=== PATIENT | male | born 1945 | race American Indian/Alaskan Native ===

== ENCOUNTER 2017-12-20 22:56 | Emergency (ER) | payer MEDICARE, BC ==
[2017-12-20 22:56] VITALS: BMI 21.1
--- NOTE | 2017-12-21 00:48 | C.PDOC ---
History Of Present Illness 72 y/o male, with history of chronic renal failure, peripheral arterial disease and left below-knee amputation, presents to the ED for evaluation of abdominal pain which began 3 days ago. Patient notes he had similar pain 3 weeks ago, was evaluated in [facility] [place] and was diagnosed with diverticulitis. Patient states he took cephalosporin and Flagyl for 7 days and then felt better. Patient notes symptoms reoccurred 3 days ago. He notes the pain is mostly around his left lower quadrant. Patient reports decreased appetite today. He denies fever, chills, vomiting, diarrhea. Patient notes he is on chronic hemodialysis. Chief Complaint (Nursing): Abdominal Pain History Per: Patient History/Exam Limitations: no limitations Onset/Duration Of Symptoms: Days (3) Current Symptoms Are (Timing): Still Present Location Of Pain/Discomfort: LLQ Quality Of Discomfort: "Pain" Associated Symptoms: denies: Fever, Chills, Nausea, Vomiting, Diarrhea Additional History Per: Patient Past Medical History Reviewed: Historical Data, Nursing Documentation, Vital Signs Vital Signs: Last Vital Signs Temp 98.1 F 12/21/17 03:36 Pulse 72 12/21/17 03:36 Resp 17 12/21/17 03:36 BP 144/73 12/21/17 03:36 Pulse Ox 98 12/21/17 03:36 - Medical History PMH: HTN, Hypercholesterolemia, End Stage Renal Disease, Chronic Kidney Disease Surgical History: Pacemaker (12/17) - [facility] Procedures BYPASS LEFT POPLITEAL ARTERY TO FOOT ARTERY, OPEN APPROACH (12/27/15) DETACHMENT AT LEFT 2ND TOE, MID, OPEN APPROACH (12/27/15) DETACHMENT AT LEFT 5TH TOE, COMPLETE, OPEN APPROACH (12/27/15) DETACHMENT AT LEFT LOWER LEG, HIGH, OPEN APPROACH (12/13/16) DIALYSIS ARTERIOVENOSTOM (04/08/14) EXCISION OF LEFT FOOT SKIN, EXTERNAL APPROACH (12/27/15) EXCISION OF LEFT GREATER SAPHENOUS VEIN, OPEN APPROACH (12/27/15) FLUOROSCOPY OF LEFT HEART USING LOW OSMOLAR CONTRAST (12/27/15) FLUOROSCOPY OF MULT COR ART USING L OSM CONTRAST (12/27/15) HEMODIALYSIS (04/08/14) INSERTION OF ENDOTRACHEAL AIRWAY INTO TRACHEA, VIA OPENING (12/13/16) INSERTION OF INFUSION DEV INTO SUP VENA CAVA, PERC APPROACH (12/27/15) INSERTION OF INFUSION DEVICE INTO R ATRIUM, PERC APPROACH (08/20/15) MEASURE OF CARDIAC SAMPL & PRESSURE, L HEART, PERC APPROACH (12/27/15) PERFORMANCE OF CARDIAC OUTPUT, SINGLE, MANUAL (12/13/16) PERFORMANCE OF URINARY FILTRATION, MULTIPLE (12/13/16) PLAIN RADIOGRAPHY OF AORTA, BI LE ART USING L OSM CONTRAST (12/27/15) RESPIRATORY VENTILATION, LESS THAN 24 CONSECUTIVE HOURS (12/13/16) TRANSFUSE NONAUT RED BLOOD CELLS IN PERIPH VEIN, PERC (12/27/15) ULTRASONOGRAPHY OF SUPERIOR VENA CAVA, GUIDANCE (12/27/15) VENOUS CATHETERIZATION FOR RENAL DIALYSIS (04/08/14) Family History: States: Unknown Family Hx - Social History Hx Tobacco Use: Yes Hx Alcohol Use: No (former) Hx Substance Use: No - Immunization History Hx Tetanus Toxoid Vaccination: No Hx Influenza Vaccination: Yes Hx Pneumococcal Vaccination: Yes Review Of Systems Constitutional: Negative for: Fever, Chills Gastrointestinal: Positive for: Abdominal Pain (LLQ). Negative for: Nausea, Vomiting Physical Exam - Physical Exam Appears: Non-toxic, No Acute Distress Skin: Normal Color, Warm, Dry Head: Atraumatic, Normacephalic Eye(s): bilateral: Normal Inspection Oral Mucosa: Moist Neck: Supple Chest: Symmetrical, No Deformity, No Tenderness Cardiovascular: Rhythm Regular, No Murmur Respiratory: Normal Breath Sounds, No Rales, No Rhonchi, No Wheezing Gastrointestinal/Abdominal: Bowel Sounds (active ), Soft, Tenderness (localized , LLQ ), No Mass, Guarding (voluntary ), No Rebound Extremity: Normal ROM, Capillary Refill (less than 2 seconds ), Other (bellow- knee amputation to left lower extremity ) Neurological/Psych: Oriented x3, Normal Speech, Normal Cognition ED Course And Treatment - Laboratory Results Result Diagrams: 12/21/17 01:46 12/21/17 01:46 O2 Sat by Pulse Oximetry: 99 (on RA) Pulse Ox Interpretation: Normal Medical Decision Making Medical Decision Making: Impression: recurrence of diverticular disease Plan: will re-scan and check routine labs Progress: Bloodwork, CT A/P ordered and reviewed. Morphnie IVP and Zofran IVP administered. Disposition - Disposition Referrals: [facility] [Outside] Disposition: HOME/ ROUTINE Disposition Time: 06:24 Condition: GOOD Prescriptions: Amoxicillin/Clavulanate [Augmentin 875 MG-125 MG] 1 tab PO BID #20 tab oxyCODONE/Acetaminophen [Percocet 5/325 mg Tab] 1 tab PO QID PRN #12 tab PRN Reason: Pain, Mild (1-3) oxyCODONE/Acetaminophen [Percocet 5/325 mg Tab] 1 tab PO QID PRN #12 tab PRN Reason: Pain, Mild (1-3) Instructions: Diverticulitis, Amoxicillin and Clavulanate, Oxycodone and Acetaminophen Forms: [employer] (Serbian) Print Language: SLOVAK - Clinical Impression Clinical Impression: Diverticulitis large intestine - Scribe Statement The provider has reviewed the documentation as recorded by the Scribe (Danae Leary) Provider Attestation: All medical record entries made by the Scribe were at my direction and personally dictated by me. I have reviewed the chart and agree that the record accurately reflects my personal performance of the history, physical exam, medical decision making, and the department course for this patient. I have also personally directed, reviewed, and agree with the discharge instructions and disposition.
[2017-12-21] MEDS ORDERED: Morphine 4 MG/ML VIAL ONE (01:05)
[2017-12-21 01:52] LABS: BASO % 0.5 % (0.0-2.0); EOS # 0.1 K/uL (0.0-0.7); EOS % 1.7 % (0.0-4.0); HEMOGLOBIN 10.4 g/dL (12.0-18.0); LYMPH # 0.8 K/uL (1.0-4.3); LYMPH % 10.9 % (20.0-40.0); MEAN CELL VOLUME 96.8 fL (80.0-94.0); MEAN CORPUSCULAR HEMOGLOBIN 32.2 pg (27.0-31.0); MEAN CORPUSCULAR HGB CONC 33.3 g/dL (33.0-37.0); MEAN PLATELET VOLUME 9.2 fL (7.2-11.7); MONO # 0.8 K/uL (0.0-0.8); MONO % 10.9 % (0.0-10.0); NEUT # 5.8 K/uL (1.8-7.0); NRBC % 0.1 % (0.0-2.0); RBC 3.22 Mil/uL (4.40-5.90); RED CELL DISTRIBUTION WIDTH 15.8 % (11.5-14.5); WHITE BLOOD COUNT 7.6 K/uL (4.8-10.8)
[2017-12-21 02:13] LABS: ALB/GLOB RATIO 0.9 (1.0-2.1); ALBUMIN 4.1 g/dL (3.5-5.0); CALCIUM 8.5 mg/dl (8.6-10.4)
[2017-12-21 03:37] VITALS: BP 144/73; PULSE 72; RESP 17; TEMP 98.1
[2017-12-21 06:25] VITALS: O2SAT 99
--- NOTE | 2017-12-21 08:08 | CT ---
PROCEDURE: CT Abdomen and Pelvis without intravenous contrast HISTORY: Abdominal pain COMPARISON: None. TECHNIQUE: Multiple contiguous axial images were performed through the abdomen and pelvis without the use of intravenous contrast. Subsequently, sagittal and coronal reformatted images were obtained. Radiation dose: Total exam DLP = 579 mGy-cm. This CT exam was performed using one or more of the following dose reduction techniques: Automated exposure control, adjustment of the mA and/or kV according to patient size, and/or use of iterative reconstruction technique. FINDINGS: LOWER THORAX: Linear atelectasis and or fibrosis at the lung bases. Pacemaker. LIVER: Small subcapsular cyst in the left hepatic lobe. This is best seen on series 3, image 50 measuring 1.2 centimeters demonstrating a Hounsfield unit attenuation of 15. GALLBLADDER AND BILE DUCTS: Unremarkable. PANCREAS: Unremarkable. No gross lesion or ductal dilatation. SPLEEN: Unremarkable. ADRENALS: Unremarkable. No mass. KIDNEYS AND URETERS: Bilateral renal cysts. For example, a partially exophytic low-attenuation lesion measures 1.0 centimeters off the midpole of the right kidney demonstrating a Hounsfield unit attenuation of 3. For example, an additional hypodensity is seen at the upper pole of the left kidney measuring 1 centimeter demonstrating a Hounsfield unit attenuation of 16. These may be better evaluated with renal ultrasound. Few scattered punctate calcifications and or calculi throughout both kidneys, nonobstructive. VASCULATURE: Prominent calcification and plaque within the aorta. BOWEL: Scattered diverticuli in the colon. Thickening and inflammation around diverticuli in the lower descending colon concerning for early acute diverticulitis. APPENDIX: Unremarkable. Normal appendix. PERITONEUM: Unremarkable. No free fluid. No free air. LYMPH NODES: Unremarkable. No enlarged lymph nodes. BLADDER: Two punctate 3-4 millimeter radiopaque foci at the posterior aspect of the urinary bladder may represent bladder calcifications and or bladder calculi. Clinical correlation. Correlation with bladder ultrasound may be helpful if clinically indicated. REPRODUCTIVE: Heterogeneous and prominent prostate with calcifications. Multiple calcified phleboliths in the pelvis. BONES: Degenerative changes in the spine and hips. Diffuse osteopenia. OTHER FINDINGS: Left inguinal hernia containing fat. IMPRESSION: Scattered diverticuli in the colon. Some thickening and inflammation around diverticuli in the lower descending colon concerning for early acute diverticulitis. Clinical correlation. Additional findings as above. These findings were preliminarily reported at 3:10 a.m. on 12/21/[address] Rolan Porras from [facility].
== END 2017-12-21 05:01 | disposition home or self-care (01) ==
LOC: SUPCPDRO 22:56 → C.ER 22:56
DX: K57.32 Diverticulitis of large intestine without perforation or abscess without bleeding (principal); I12.9 Hypertensive chronic kidney disease with stage 1 through stage 4 chronic kidney disease, or unspecified chronic kidney disease; N18.9 Chronic kidney disease, unspecified; E78.00 Pure hypercholesterolemia, unspecified; F17.210 Nicotine dependence, cigarettes, uncomplicated
CPT/HCPCS: 74176; 80053; 83690; 85025; 96374; 96375; 99284; J2270; J2405

== ENCOUNTER 2017-12-22 01:30 | Inpatient (IN) | payer MEDICARE, BC ==
[2017-12-22 01:30] VITALS: BMI 21.1
--- NOTE | 2017-12-22 02:18 | C.PDOC ---
History Of Present Illness 72 year old male presents to the ED for evaluation of diffuse abdominal pain. Patient was seen here yesterday with the same complaint. He has a history of diverticulosis and possible history of diverticulitis. He has been on antibiotics but states that pain has worsened. He is on , , Tuesday dialysis schedule. Time Seen by Provider: 12/22/17 02:18 Chief Complaint (Nursing): Abdominal Pain History Per: Patient History/Exam Limitations: no limitations Onset/Duration Of Symptoms: Days Current Symptoms Are (Timing): Still Present Severity: Moderate Pain Scale Rating Of: 4 Location Of Pain/Discomfort: Diffuse Quality Of Discomfort: "Pain" Associated Symptoms: denies: Fever, Chills Recent travel outside of the [place]: No Past Medical History Reviewed: Historical Data, Nursing Documentation, Vital Signs Vital Signs: Last Vital Signs Temp 97.8 F 12/22/17 02:13 Pulse 64 12/22/17 02:13 Resp 18 12/22/17 02:13 BP 174/72 H 12/22/17 02:13 Pulse Ox 99 12/22/17 02:42 - Medical History PMH: HTN, Hypercholesterolemia, End Stage Renal Disease, Chronic Kidney Disease Surgical History: Pacemaker (12/17) - [facility] Procedures BYPASS LEFT POPLITEAL ARTERY TO FOOT ARTERY, OPEN APPROACH (12/27/15) DETACHMENT AT LEFT 2ND TOE, MID, OPEN APPROACH (12/27/15) DETACHMENT AT LEFT 5TH TOE, COMPLETE, OPEN APPROACH (12/27/15) DETACHMENT AT LEFT LOWER LEG, HIGH, OPEN APPROACH (12/13/16) DIALYSIS ARTERIOVENOSTOM (04/08/14) EXCISION OF LEFT FOOT SKIN, EXTERNAL APPROACH (12/27/15) EXCISION OF LEFT GREATER SAPHENOUS VEIN, OPEN APPROACH (12/27/15) FLUOROSCOPY OF LEFT HEART USING LOW OSMOLAR CONTRAST (12/27/15) FLUOROSCOPY OF MULT COR ART USING L OSM CONTRAST (12/27/15) HEMODIALYSIS (04/08/14) INSERTION OF ENDOTRACHEAL AIRWAY INTO TRACHEA, VIA OPENING (12/13/16) INSERTION OF INFUSION DEV INTO SUP VENA CAVA, PERC APPROACH (12/27/15) INSERTION OF INFUSION DEVICE INTO R ATRIUM, PERC APPROACH (08/20/15) MEASURE OF CARDIAC SAMPL & PRESSURE, L HEART, PERC APPROACH (12/27/15) PERFORMANCE OF CARDIAC OUTPUT, SINGLE, MANUAL (12/13/16) PERFORMANCE OF URINARY FILTRATION, MULTIPLE (12/13/16) PLAIN RADIOGRAPHY OF AORTA, BI LE ART USING L OSM CONTRAST (12/27/15) RESPIRATORY VENTILATION, LESS THAN 24 CONSECUTIVE HOURS (12/13/16) TRANSFUSE NONAUT RED BLOOD CELLS IN PERIPH VEIN, PERC (12/27/15) ULTRASONOGRAPHY OF SUPERIOR VENA CAVA, GUIDANCE (12/27/15) VENOUS CATHETERIZATION FOR RENAL DIALYSIS (04/08/14) Family History: States: Unknown Family Hx - Social History Hx Tobacco Use: Yes Hx Alcohol Use: No (former) Hx Substance Use: No - Immunization History Hx Tetanus Toxoid Vaccination: No Hx Influenza Vaccination: Yes Hx Pneumococcal Vaccination: Yes Review Of Systems Constitutional: Negative for: Fever, Chills ENT: Negative for: Ear Pain, Throat Pain Cardiovascular: Negative for: Chest Pain Respiratory: Negative for: Cough, Shortness of Breath Gastrointestinal: Positive for: Abdominal Pain. Negative for: Nausea, Vomiting , Diarrhea Genitourinary: Negative for: Dysuria Skin: Negative for: Rash Neurological: Negative for: Headache Physical Exam - Physical Exam Appears: Non-toxic, No Acute Distress Skin: Warm, Dry Head: Normacephalic Eye(s): bilateral: Normal Inspection Oral Mucosa: Moist Neck: Trachea Midline, Supple Chest: Symmetrical Cardiovascular: Rhythm Regular (Rate Regular ) Respiratory: No Rales, No Rhonchi, No Wheezing Gastrointestinal/Abdominal: Soft, Tenderness (diffuse tenderness, worst in left lower quadrant ), Distention, No Guarding, No Rebound Back: Normal Inspection Extremity: Other (Left upper extremity with dialysis shunt, good thrill and bruit; Left BKA) Extremity: Bilateral: Atraumatic Neurological/Psych: Oriented x3 Gait: Steady ED Course And Treatment - Laboratory Results Result Diagrams: 12/22/17 03:18 12/22/17 03:18 ECG: Interpreted By Me, Viewed By Me ECG Rhythm: Sinus Rhythm (61), 1st Degree HB, Nonspecific Changes O2 Sat by Pulse Oximetry: 99 Pulse Ox Interpretation: Normal Disposition Discussed With : Emilio Israel Comment: accepted the pt on his service and took over the care at 5:39 AM Doctor Will See Patient In The: Hospital Counseled Patient/Family Regarding: Studies Performed, Diagnosis - Disposition Disposition: HOSPITALIZED Disposition Time: 05:39 Condition: FAIR Forms: [employer] (Tanzanian) - POA Present On Arrival: Poor Glycemic Control - Clinical Impression Clinical Impression: Abdominal pain, End stage renal disease, Diverticulitis, ESRD needing dialysis - Scribe Statement The provider has reviewed the documentation as recorded by the Hectoribvictoriano Ibanez Provider Attestation: All medical record entries made by the Scribe were at my direction and personally dictated by me. I have reviewed the chart and agree that the record accurately reflects my personal performance of the history, physical exam, medical decision making, and the department course for this patient. I have also personally directed, reviewed, and agree with the discharge instructions and disposition. Decision To Admit - Pt Status Changed To: Hospital Disposition Of: Inpatient - Admit Certification Admit to Inpatient:: After my assessment, the patient will require hospitalization for at least two midnights. This is because of the severity of symptoms shown, intensity of services needed, and/or the medical risk in this patient being treated as an outpatient. - InPatient: Physician Admission Certification:: After my assessment, the patient will require hospitalization for at least two midnights. This is because of the severity of symptoms shown, intensity of services needed, and/or the medical risk in this patient being treated as an outpatient. - . Bed Request Type: Regular Admitting Physician: Emilio Israel Patient Diagnosis: Abdominal pain, End stage renal disease, Diverticulitis, ESRD needing dialysis
[2017-12-22 03:22] LABS: BASO # 0.1 K/uL (0.0-0.2); BASO % 0.6 % (0.0-2.0); EOS # 0.1 K/uL (0.0-0.7); EOS % 1.1 % (0.0-4.0); HEMOGLOBIN 10.9 g/dL (12.0-18.0); LYMPH # 0.9 K/uL (1.0-4.3); LYMPH % 10.5 % (20.0-40.0); MEAN CELL VOLUME 96.3 fL (80.0-94.0); MEAN CORPUSCULAR HEMOGLOBIN 32.2 pg (27.0-31.0); MEAN CORPUSCULAR HGB CONC 33.4 g/dL (33.0-37.0); MONO # 0.9 K/uL (0.0-0.8); MONO % 9.7 % (0.0-10.0); NEUT # 6.9 K/uL (1.8-7.0); NEUT % 78.1 % (50.0-75.0); RBC 3.39 Mil/uL (4.40-5.90); RED CELL DISTRIBUTION WIDTH 15.5 % (11.5-14.5); WHITE BLOOD COUNT 8.9 K/uL (4.8-10.8)
[2017-12-22 03:30] LABS: PROTHROMBIN TIME 11.3 SECONDS (9.7-12.2)
[2017-12-22 05:33] LABS: ALB/GLOB RATIO 0.9 (1.0-2.1); CALCIUM 8.6 mg/dl (8.6-10.4)
[2017-12-22] MEDS ORDERED: Oxycodone/Acetaminophen 5/325 mg Tab PO PRN (05:53)
[2017-12-22] MEDS ORDERED: Oxycodone/Acetaminophen 5/325 mg Tab ONE (06:22)
[2017-12-22] MEDS ORDERED: (Novolog) Insulin Aspart, Recombinant 100 u/ml 10 ml vial ONE (08:27)
[2017-12-22] MEDS: (Novolog) Insulin Aspart, Recombinant 100 u/ml 10 ml vial SC SCH ×4 (08:34→22:13)
[2017-12-22] MEDS ORDERED: SOTALOL PO SCH (10:00)
[2017-12-22] MEDS ORDERED: Epoetin Alfa 10,000 unit/ml Dialysis IV SCH (10:00)
[2017-12-22] MEDS: Sevelamer Carb 2.4 gm/Packet PO SCH ×3 (11:38→18:18)
[2017-12-22] MEDS: Multivitamin Vitamin B Complex (Nephro-Vite) Tab PO SCH (11:38)
--- NOTE | 2017-12-22 14:12 | CP.PCM.CON ---
History of Present Illness - History of Present Illness History of Present Illness: pt is seen and examined, full consult is dictated #[id number] for hd today, uf 2.5 lit Past Patient History - Infectious Disease Hx of Infectious Diseases: None - Past Medical History & Family History Past Medical History?: Yes - Past Social History Smoking Status: Light Smoker < 10 Cigarettes Daily - CARDIAC Hx Cardiac Disorders: Yes Hx Hypercholesterolemia: Yes Hx Hypertension: Yes Hx Pacemaker: Yes (12/17) - PULMONARY Other/Comment: light smoker - NEUROLOGICAL Hx Neurological Disorder: No - HEENT Hx HEENT Problems: Yes Other/Comment: left eye vision problems - RENAL Hx Chronic Kidney Disease: Yes Hx Dialysis: Yes Date of Last Dialysis Treatment: 12/20/17 - ENDOCRINE/METABOLIC Hx Endocrine Disorders: Yes Hx Diabetes Mellitus Type 2: Yes - HEMATOLOGICAL/ONCOLOGICAL Hx Blood Disorders: No - INTEGUMENTARY Hx Dermatological Problems: No - MUSCULOSKELETAL/RHEUMATOLOGICAL Hx Musculoskeletal Disorders: Yes Hx Falls: Yes Other/Comment: left leg prosthesis - GASTROINTESTINAL Hx Gastrointestinal Disorders: Yes Hx Nausea: Yes - GENITOURINARY/GYNECOLOGICAL Hx Genitourinary Disorders: No - PSYCHIATRIC Hx Substance Use: No - SURGICAL HISTORY Hx Surgeries: Yes Hx Amputation: Yes (left bka with prosthesis) Hx Angiogram: Yes Hx Herniorrhaphy: Yes Hx Vascular Access Device: Yes - ANESTHESIA Hx Anesthesia: Yes Hx Anesthesia Reactions: No Hx Malignant Hyperthermia: No Has any member of the family had a problem w/ anesthesia?: No Meds Allergies/Adverse Reactions: Allergies Allergy/AdvReac Type Severity Reaction Status Date / Time No Known Allergies Allergy Verified 12/22/17 02:18 - Medications Medications: Current Medications Acetaminophen (Tylenol 325mg Tab) 650 mg PO Q6 PRN PRN Reason: Pain, moderate (4-7) Aspirin (Aspirin Chewable) 81 mg PO DAILY [facility] Last Admin: 12/22/17 11:37 Dose: 81 mg Epoetin Omi (Procrit) 10,000 unit IV TTS MATTHEW Stop: 01/03/18 10:01 Finasteride (Proscar) 5 mg PO HS MATTHEW Heparin Sodium (Porcine) (Heparin) 5,000 units SC Q8 MATTHEW Last Admin: 12/22/17 06:15 Dose: 5,000 units Hydralazine HCl (Apresoline) 50 mg PO Q8 [facility] Last Admin: 12/22/17 06:15 Dose: 50 mg Metronidazole (Flagyl) 500 mg in 100 mls @ 100 mls/hr IVPB Q8 [facility] Insulin Aspart (Novolog) 0 unit SC ACHS MATTHEW PRN Reason: Protocol Last Admin: 12/22/17 08:34 Dose: 2 unit Metoclopramide HCl (Reglan) 5 mg IVP Q6H [facility] Last Admin: 12/22/17 09:55 Dose: 5 mg Oxycodone/Acetaminophen (Percocet 5/325 Mg Tab) 1 tab PO QID PRN PRN Reason: Pain, Mild (1-3) Stop: 12/25/17 05:54 Last Admin: 12/22/17 06:33 Dose: 1 tab Pantoprazole Sodium (Protonix Inj) 40 mg IVP DAILY [facility] Last Admin: 12/22/17 11:38 Dose: 40 mg Paricalcitol (Zemplar) 2 mcg IV TTS [facility] Rosuvastatin Calcium (Crestor) 5 mg PO HS [facility] Sevelamer Carbonate (Renvela) 2.4 gm PO TIDCC [facility] Last Admin: 12/22/17 11:38 Dose: 2.4 gm Sotalol HCl (Betapace) 160 mg PO BID [facility] Vitamin B Complex/Vit C/Folic Acid (Nephro-Benoit) 1 tab PO DAILY [facility] Last Admin: 12/22/17 11:38 Dose: 1 tab Results - Vital Signs Recent Vital Signs: Last Vital Signs Temp 97.8 F 12/22/17 08:32 Pulse 58 L 12/22/17 08:32 Resp 20 12/22/17 08:32 BP 167/65 H 12/22/17 08:32 Pulse Ox 98 12/22/17 08:32 - Labs Result Diagrams: 12/22/17 03:18 12/22/17 19:36 Labs: Laboratory Results - last 24 hr 12/22/17 12/22/17 12/22/17 03:18 03:18 03:18 WBC 8.9 RBC 3.39 L Hgb 10.9 L Hct 32.6 L MCV 96.3 H MCH 32.2 H MCHC 33.4 RDW 15.5 H Plt Count 190 MPV 9.0 Neut % (Auto) 78.1 H Lymph % (Auto) 10.5 L [place] % (Auto) 9.7 Eos % (Auto) 1.1 Baso % (Auto) 0.6 Neut # (Auto) 6.9 Lymph # (Auto) 0.9 L [place] # (Auto) 0.9 H Eos # (Auto) 0.1 Baso # (Auto) 0.1 PT 11.3 INR 1.0 APTT 44 H Sodium 135 Potassium 5.6 H Chloride 95 L Carbon Dioxide 24 Anion Gap 22 H BUN 55 H Creatinine 9.6 H* D Est GFR ( Amer) 7 Est GFR (Non-Af Amer) 5 POC Glucose (mg/dL) Random Glucose 164 H Calcium 8.6 Total Bilirubin 0.6 AST 20 ALT 13 L Alkaline Phosphatase 107 Total Protein 8.6 H Albumin 4.0 Globulin 4.6 H Albumin/Globulin Ratio 0.9 L Amylase Lipase 94 Carcinoembryonic Ag 6.9 H CA 19-9 Antigen 53.8 H 12/22/17 12/22/17 12/22/17 06:48 08:11 11:54 WBC RBC Hgb Hct MCV MCH MCHC RDW Plt Count MPV Neut % (Auto) Lymph % (Auto) [place] % (Auto) Eos % (Auto) Baso % (Auto) Neut # (Auto) Lymph # (Auto) [place] # (Auto) Eos # (Auto) Baso # (Auto) PT INR APTT Sodium Potassium Chloride Carbon Dioxide Anion Gap BUN Creatinine Est GFR ( Amer) Est GFR (Non-Af Amer) POC Glucose (mg/dL) 206 H 74 Random Glucose Calcium Total Bilirubin AST ALT Alkaline Phosphatase Total Protein Albumin Globulin Albumin/Globulin Ratio Amylase 97 Lipase Carcinoembryonic Ag CA 19-9 Antigen
[2017-12-22] MEDS: metroNIDAZOLE IV 500 mg/100 ml 500 MG/100 ML BAG IVPB SCH ×2 (14:30→22:20)
[2017-12-22] MEDS: Paricalcitol 2 mcg/ml Inj IV SCH (16:27)
[2017-12-22] MEDS: Epoetin Alfa 10,000 unit/ml Dialysis IV SCH (16:28)
[2017-12-22] MEDS ORDERED: Magnesium Citrate Oral SOL (300 ml) PO ONE (17:38)
--- NOTE | 2017-12-22 20:00 | CP.PCM.HP ---
History of Present Illness - History of Present Illness History of Present Illness: CC: Left lower quadrant abdominal pain HPI: 72 year old AA male with h/o type 2 DM, CKD on HD presents to the ED for evaluation of diffuse abdominal pain along with nausea no vomitting. He has a history of diverticulosis and possible history of diverticulitis. He has been on antibiotics but states that pain has worsened. He is on , , Tuesday dialysis schedule. Present on Admission - Present on Admission Any Indicators Present on Admission: Yes Review of Systems - Review of Systems Systems not reviewed;Unavailable: Acuity of Condition - Constitutional Constitutional: Fatigue, Lethargy - EENT Eyes: absent: As Per HPI, Blind Spots, Blurred Vision, Change in Vision, Decreased Night Vision, Diplopia, Discharge, Dry Eye, Exophthalmos, Floaters, Irritation, Itchy Eyes, Loss of Peripheral Vision, Pain, Photophobia, Requires Corrective Lenses, Sees Flashes, Spots in Vision, Tunnel Vision, Other Visual Disturbances, Loss of Vision, Other Nose/Mouth/Throat: absent: As Per HPI, Epistaxis, Nasal Congestion, Nasal Discharge, Nasal Obstruction, Nasal Trauma, Nose Pain, Post Nasal Drip, Sinus Pain, Sinus Pressure, Bleeding Gums, Change in Voice, Dental Pain, Dry Mouth, Dysphagia, Halitosis, Hoarsness, Lip Swelling, Mouth Lesions, Mouth Pain, Odynophagia, Sore Throat, Throat Swelling, Tongue Swelling, Facial Pain, Neck Pain, Neck Mass, Other - Cardiovascular Cardiovascular: absent: As Per HPI, Acrocyanosis, Chest Pain, Chest Pain at Rest , Chest Pain with Activity, Claudication, Diaphoresis, Dyspnea, Dyspnea on Exertion, Edema, Irregular Heart Rhythm, Pain Radiating to Arm/Neck/Jaw, Leg Edema, Leg Ulcers, Lightheadedness, Orthopnea, Palpitations, Paroxysmal Nocturnal Dyspnea, Pedal Edema, Radiating Pain, Rapid Heart Rate, Slow Heart Rate, Syncope, Other - Gastrointestinal Gastrointestinal: Abdominal Pain, Nausea. absent: As Per HPI, Belching, Bloating, Change in Bowel Habits, Change in Stool Character, Coffee Ground Emesis, Constipation, Cramping, Diarrhea, Dyspepsia, Dysphagia, Early Satiety, Excessive Flatus, Fecal Incontinence, Heartburn, Hematemesis, Hematochezia, Loose Stools, Melena, Odynophagia, Temesmus, Vomiting, Other - Genitourinary Genitourinary: absent: As Per HPI, Change in Urinary Stream, Difficulty Urinating, Dysuria, Flank Pain, Hematuria, Pyuria, Nocturia, Urinary Incontinence, Urinary Frequency, Urinary Hesitance, Urinary Urgency, Voiding Freq/Small Amts, Freq UTI, Hx Renal/Bladder Calculi, Hx /Renal Surgery, Bladder Distension, Other Past Patient History - Infectious Disease Hx of Infectious Diseases: None - Past Medical History & Family History Past Medical History?: Yes - Past Social History Smoking Status: Light Smoker < 10 Cigarettes Daily - CARDIAC Hx Cardiac Disorders: Yes Hx Hypercholesterolemia: Yes Hx Hypertension: Yes Hx Pacemaker: Yes (12/17) - PULMONARY Other/Comment: light smoker - NEUROLOGICAL Hx Neurological Disorder: No - HEENT Hx HEENT Problems: Yes Other/Comment: left eye vision problems - RENAL Hx Chronic Kidney Disease: Yes Hx Dialysis: Yes Date of Last Dialysis Treatment: 12/20/17 - ENDOCRINE/METABOLIC Hx Endocrine Disorders: Yes Hx Diabetes Mellitus Type 2: Yes - HEMATOLOGICAL/ONCOLOGICAL Hx Blood Disorders: No - INTEGUMENTARY Hx Dermatological Problems: No - MUSCULOSKELETAL/RHEUMATOLOGICAL Hx Musculoskeletal Disorders: Yes Hx Falls: Yes Other/Comment: left leg prosthesis - GASTROINTESTINAL Hx Gastrointestinal Disorders: Yes Hx Nausea: Yes - GENITOURINARY/GYNECOLOGICAL Hx Genitourinary Disorders: No - PSYCHIATRIC Hx Substance Use: No - SURGICAL HISTORY Hx Surgeries: Yes Hx Amputation: Yes (left bka with prosthesis) Hx Angiogram: Yes Hx Herniorrhaphy: Yes Hx Vascular Access Device: Yes - ANESTHESIA Hx Anesthesia: Yes Hx Anesthesia Reactions: No Hx Malignant Hyperthermia: No Has any member of the family had a problem w/ anesthesia?: No Meds Allergies/Adverse Reactions: Allergies Allergy/AdvReac Type Severity Reaction Status Date / Time No Known Allergies Allergy Verified 12/22/17 02:18 Physical Exam - Constitutional Appears: No Acute Distress - Head Exam Head Exam: ATRAUMATIC, NORMAL INSPECTION, NORMOCEPHALIC - Eye Exam Eye Exam: EOMI, Normal appearance, PERRL Pupil Exam: NORMAL ACCOMODATION, PERRL - Respiratory Exam Respiratory Exam: Clear to Auscultation Bilateral, NORMAL BREATHING PATTERN - Cardiovascular Exam Cardiovascular Exam: REGULAR RHYTHM - GI/Abdominal Exam GI & Abdominal Exam: Tenderness - Rectal Exam Rectal Exam: Deferred Results - Vital Signs Recent Vital Signs: Last Vital Signs Temp 97.4 F L 12/22/17 16:25 Pulse 64 12/22/17 17:30 Resp 16 12/22/17 17:30 BP 163/80 H 12/22/17 17:30 Pulse Ox 97 12/22/17 16:25 - Labs Result Diagrams: 12/22/17 03:18 12/22/17 19:36 Labs: Laboratory Results - last 24 hr 12/22/17 12/22/17 12/22/17 03:18 03:18 03:18 WBC 8.9 RBC 3.39 L Hgb 10.9 L Hct 32.6 L MCV 96.3 H MCH 32.2 H MCHC 33.4 RDW 15.5 H Plt Count 190 MPV 9.0 Neut % (Auto) 78.1 H Lymph % (Auto) 10.5 L Cochran % (Auto) 9.7 Eos % (Auto) 1.1 Baso % (Auto) 0.6 Neut # (Auto) 6.9 Lymph # (Auto) 0.9 L Cochran # (Auto) 0.9 H Eos # (Auto) 0.1 Baso # (Auto) 0.1 PT 11.3 INR 1.0 APTT 44 H Sodium 135 Potassium 5.6 H Chloride 95 L Carbon Dioxide 24 Anion Gap 22 H BUN 55 H Creatinine 9.6 H* D Est GFR ( Amer) 7 Est GFR (Non-Af Amer) 5 POC Glucose (mg/dL) Random Glucose 164 H Calcium 8.6 Total Bilirubin 0.6 AST 20 ALT 13 L Alkaline Phosphatase 107 Total Protein 8.6 H Albumin 4.0 Globulin 4.6 H Albumin/Globulin Ratio 0.9 L Amylase Lipase 94 Carcinoembryonic Ag 6.9 H CA 19-9 Antigen 53.8 H 12/22/17 12/22/17 12/22/17 06:48 08:11 11:54 WBC RBC Hgb Hct MCV MCH MCHC RDW Plt Count MPV Neut % (Auto) Lymph % (Auto) Cochran % (Auto) Eos % (Auto) Baso % (Auto) Neut # (Auto) Lymph # (Auto) Cochran # (Auto) Eos # (Auto) Baso # (Auto) PT INR APTT Sodium Potassium Chloride Carbon Dioxide Anion Gap BUN Creatinine Est GFR ( Amer) Est GFR (Non-Af Amer) POC Glucose (mg/dL) 206 H 74 Random Glucose Calcium Total Bilirubin AST ALT Alkaline Phosphatase Total Protein Albumin Globulin Albumin/Globulin Ratio Amylase 97 Lipase Carcinoembryonic Ag CA 19-9 Antigen 12/22/17 16:01 WBC RBC Hgb Hct MCV MCH MCHC RDW Plt Count MPV Neut % (Auto) Lymph % (Auto) Cochran % (Auto) Eos % (Auto) Baso % (Auto) Neut # (Auto) Lymph # (Auto) Cochran # (Auto) Eos # (Auto) Baso # (Auto) PT INR APTT Sodium Potassium Chloride Carbon Dioxide Anion Gap BUN Creatinine Est GFR ( Amer) Est GFR (Non-Af Amer) POC Glucose (mg/dL) 75 Random Glucose Calcium Total Bilirubin AST ALT Alkaline Phosphatase Total Protein Albumin Globulin Albumin/Globulin Ratio Amylase Lipase Carcinoembryonic Ag CA 19-9 Antigen Assessment & Plan (1) Abdominal pain Status: Acute (2) Diverticulitis Status: Acute (3) End stage renal disease Status: Chronic (4) Diabetes Status: Chronic (5) Hypertension Status: Chronic Priority: Low
[2017-12-23] MEDS: metroNIDAZOLE IV 500 mg/100 ml 500 MG/100 ML BAG IVPB SCH ×3 (05:25→21:58)
[2017-12-23] MEDS: (Novolog) Insulin Aspart, Recombinant 100 u/ml 10 ml vial SC SCH ×4 (07:59→22:13)
[2017-12-23 08:22] LABS: HEMOGLOBIN 10.3 g/dL (12.0-18.0); MEAN CELL VOLUME 95.8 fL (80.0-94.0); MEAN CORPUSCULAR HGB CONC 33.4 g/dL (33.0-37.0); MEAN PLATELET VOLUME 8.5 fL (7.2-11.7); RBC 3.22 Mil/uL (4.40-5.90); RED CELL DISTRIBUTION WIDTH 15.9 % (11.5-14.5); WHITE BLOOD COUNT 6.3 K/uL (4.8-10.8)
[2017-12-23] MEDS: Sevelamer Carb 2.4 gm/Packet PO SCH ×3 (08:33→18:09)
[2017-12-23] MEDS: Multivitamin Vitamin B Complex (Nephro-Vite) Tab PO SCH (10:32)
[2017-12-23] MEDS: Metoprolol Succinate 50 mg XL Tab PO SCH (10:32)
[2017-12-23] MEDS ORDERED: Lidocaine 4% (Laryng-O-Jet) Kit MM ONE (12:01)
--- NOTE | 2017-12-23 12:03 | CARD ---
APPROVED REPORT EKG Measurement Heart [id number] <Conclusion> Sinus rhythm with 1st degree AV block Right bundle branch block Inferior infarct, age undetermined Abnormal ECG
[2017-12-23] MEDS ORDERED: Midazolam 2 MG/2 ML VIAL ONE ×2 (14:04→14:08)
--- NOTE | 2017-12-23 18:44 | CP.PCM.PN ---
Subjective - Date & Time of Evaluation Date of Evaluation: 12/23/17 Time of Evaluation: 18:43 - Subjective Subjective: pt is seen and examined, follow up consult is dictated #[id number] Objective - Vital Signs/Intake and Output Vital Signs (last 24 hours): Temp Pulse Resp BP Pulse Ox 97 F L 62 20 144/58 L 95 12/23/17 16:22 12/23/17 16:22 12/23/17 16:22 12/23/17 16:22 12/23/17 16:22 Intake and Output: 12/23/17 12/23/17 06:59 18:59 Intake Total 1040 600 Balance 1040 600 - Medications Medications: Current Medications Acetaminophen (Tylenol 325mg Tab) 650 mg PO Q6 PRN PRN Reason: Pain, moderate (4-7) Aspirin (Aspirin Chewable) 81 mg PO DAILY [facility] Last Admin: 12/23/17 10:31 Dose: 81 mg Bisacodyl (Dulcolax) 10 mg PO ONCE ONE Stop: 12/25/17 17:01 Epoetin Omi (Procrit) 10,000 unit IV TTS [facility] Stop: 01/03/18 10:01 Last Admin: 12/22/17 16:28 Dose: 10,000 unit Finasteride (Proscar) 5 mg PO HS [facility] Last Admin: 12/22/17 21:28 Dose: 5 mg Heparin Sodium (Porcine) (Heparin) 5,000 units SC Q8 [facility] Last Admin: 12/23/17 13:59 Dose: 5,000 units Hydralazine HCl (Apresoline) 50 mg PO Q8 [facility] Last Admin: 12/23/17 13:59 Dose: 50 mg Metronidazole (Flagyl) 500 mg in 100 mls @ 100 mls/hr IVPB Q8 [facility] Last Admin: 12/23/17 13:58 Dose: 100 mls/hr Insulin Aspart (Novolog) 0 unit SC ACHS MATTHEW PRN Reason: Protocol Last Admin: 12/23/17 18:09 Dose: 1 unit Metoclopramide HCl (Reglan) 5 mg IVP Q6H [facility] Last Admin: 12/23/17 13:59 Dose: 5 mg Metoprolol Succinate (Toprol Xl) 50 mg PO DAILY [facility] Last Admin: 12/23/17 10:32 Dose: 50 mg Oxycodone/Acetaminophen (Percocet 5/325 Mg Tab) 1 tab PO QID PRN PRN Reason: Pain, Mild (1-3) Stop: 12/25/17 05:54 Last Admin: 12/22/17 06:33 Dose: 1 tab Pantoprazole Sodium (Protonix Inj) 40 mg IVP DAILY [facility] Last Admin: 12/23/17 10:31 Dose: 40 mg Paricalcitol (Zemplar) 2 mcg IV TTS [facility] Last Admin: 12/22/17 16:27 Dose: 2 mcg Polyethylene Glycol/Electrolytes (Golytely) 4,000 ml PO ONCE ONE Stop: 12/25/17 10:01 Rosuvastatin Calcium (Crestor) 5 mg PO HS [facility] Last Admin: 12/22/17 21:28 Dose: 5 mg Sevelamer Carbonate (Renvela) 2.4 gm PO TIDCC [facility] Last Admin: 12/23/17 18:09 Dose: 2.4 gm Vitamin B Complex/Vit C/Folic Acid (Nephro-Benoit) 1 tab PO DAILY [facility] Last Admin: 12/23/17 10:32 Dose: 1 tab - Labs Labs: 12/23/17 08:11 12/23/17 08:11 PT 11.3 SECONDS (9.7-12.2) 12/22/17 03:18 INR 1.0 12/22/17 03:18 APTT 44 SECONDS (21-34) H 12/22/17 03:18
--- NOTE | 2017-12-23 20:09 | CON ---
DATE: 12/22/2017 FOLLOWUP RENAL CONSULTATION LOCATION: Room 560, bed B. REQUESTED BY: Emilio Israel MD REASON FOR FOLLOWUP: End-stage renal disease, continuation of hemodialysis. HISTORY OF PRESENT ILLNESS: Mr. Richards is a 72-year-old elderly very pleasant male with a past medical history significant for diabetes since 1996, hypertension, longstanding end-stage renal disease on hemodialysis for the last three and a half years, status post cardiac arrest and status post pacemaker placement, BPH and hyperlipidemia, status post left BKA, who was admitted with chief complaint of left lower quadrant pain and nausea. As for the patient, he was in medical center overnight 1 week ago with nausea, abdominal pain and subsequently the patient was discharged home on p.o. antibiotics and some medicine for nausea. He was okay for about 2 days and then his pain started and he is persistently nauseous. The patient decided to come to the hospital. The patient denies any fever. Denies any vomiting or diarrhea. The patient complains of decreased p.o. intake and persistent nausea. PAST MEDICAL HISTORY: His past medical history is significant for longstanding hypertension, diabetes, end-stage renal disease on hemodialysis for the last three and a half years status post pacemaker for cardiac arrest. PAST SURGICAL HISTORY: Status post left BKA and also left upper extremity AV fistula. ALLERGIES: NO KNOWN DRUG ALLERGIES. SOCIAL HISTORY: The patient is a smoker, he smokes 2 to 3 cigarettes per day. No alcohol or drug abuse. Advised the patient to quit smoking. Smoking cessation was provided. PERSONAL HISTORY: He is a . His with possible lymphoma. He has four children and they are very supportive. FAMILY HISTORY: Not significant. MEDICATIONS: His current medications include as follows, hydralazine 50 mg p.o. q.8 hours, aspirin 81 mg daily, Crestor 5 mg at bedtime and Flagyl 500 mg IV q.8 hours, subcu heparin 5000 q.8 hours and Nephro-Benoit 1 tablet daily, NovoLog and Percocet 1 tablet p.o. q.i.d. and Procrit 10,000 units three times a week and Proscar 5 mg p.o. at bedtime and Protonix 40 mg IV daily and Reglan 5 mg IV q.6 hours, Renvela 2.4 gm p.o. t.i.d. and Toprol XL 50 mg p.o. daily and Tylenol and Zemplar 2 mcg three times a week. PHYSICAL EXAMINATION: GENERAL: Physical exam as follows, Mr. Richards is 72-year-old elderly male, moderately built, moderately nourished, not in acute distress. HEENT: Pupils normal and reactive to light and accommodation. Conjunctiva pink. Sclerae anicteric. Tongue is moist. Trachea is midline. LUNGS: Symmetric on both sides. Bilateral breath sounds present. Clear on auscultation. CVS: [place] at the fifth intercostal space, midclavicular line. S1 and S2 audible. No murmur, no gallop. The patient has a pacemaker in the right subclavian region. ABDOMEN: Normal in appearance, soft, tympanic. No guarding. No rigidity. No hepatosplenomegaly. HAIR WORKER: The patient is alert, awake, oriented x3. Nonfocal neuro examination. Cranial nerves II through XII grossly intact. Sensory and motor system is within normal limits. EXTREMITIES: No cyanosis, no clubbing, no edema on the right side. Status post left BKA LABORATORY DATA: His current lab data include as follows, as of 12/22/2017, WBC 8.9, hemoglobin 10.9, hematocrit is 32.6, platelets 190. PT 11.3, PTT 44. Sodium 135, potassium is 5.6, chloride 95, CO2 of 24, anion gap is 22, BUN 55, creatinine 9.6 and glucose 164, calcium 8.6 and total bili 0.6, AST 20, ALT 13, alkaline phos of 107, total protein 8.6, albumin is 4 and lipase is 94, amylase is 97 and CEA is 6.9 and CA 19-9 is 53.8, repeat one is 48.9. IMPRESSION: In summary, Mr. Richards is a 72-year-old elderly male with a past medical history significant for longstanding hypertension, diabetes, hyperlipidemia, BPH, status post cardiac arrest, status post pacemaker about a year ago, status post left BKA and was admitted with nausea and left lower quadrant pain, failed outpatient p.o. antibiotics last week with hyperkalemia and due for hemodialysis. 1. End-stage renal disease, continue hemodialysis 3 times a week Tuesday, , Tuesday. 2. Hyperkalemia, secondary to questionable noncompliance of medication and diet. 3. Hypertension. 4. Left lower quadrant pain and nausea, rule out diverticulitis. Continue IV antibiotics as per Dr. Israel and followup with gastrointestinal. Consider CT scan of the abdomen and pelvis if not done recently. We will follow with you. Thank you for allowing me to participate in your patient's care. Continue his current medications, continue Epogen, Renvela and continue the antihypertensive medications metoprolol and hydralazine and DVT prophylaxis. We will follow with you. Thank you for allowing me to participate in your patient's care and the patient underwent hemodialysis this afternoon and GF goal is about 2.5 liters. Blanca Thakkar MD
[2017-12-23] MEDS: guaiFENesin 600 mg ER Tab PO SCH (20:10)
[2017-12-23] MEDS: Docusate-Senna 50 mg-8.6 mg Tab PO SCH (21:58)
--- NOTE | 2017-12-23 23:30 | CP.PCM.PN ---
Subjective - Date & Time of Evaluation Date of Evaluation: 12/23/17 Time of Evaluation: 18:40 Objective - Vital Signs/Intake and Output Vital Signs (last 24 hours): Temp Pulse Resp BP Pulse Ox 97 F L 62 20 146/71 95 12/23/17 16:22 12/23/17 16:22 12/23/17 16:22 12/23/17 21:56 12/23/17 16:22 Intake and Output: 12/23/17 12/24/17 18:59 06:59 Intake Total 600 700 Balance 600 700 - Medications Medications: Current Medications Acetaminophen (Tylenol 325mg Tab) 650 mg PO Q6 PRN PRN Reason: Pain, moderate (4-7) Aspirin (Aspirin Chewable) 81 mg PO DAILY [facility] Last Admin: 12/23/17 10:31 Dose: 81 mg Bisacodyl (Dulcolax) 10 mg PO ONCE ONE Stop: 12/25/17 17:01 Epoetin Omi (Procrit) 10,000 unit IV TTS [facility] Stop: 01/03/18 10:01 Last Admin: 12/22/17 16:28 Dose: 10,000 unit Finasteride (Proscar) 5 mg PO HS [facility] Last Admin: 12/23/17 21:57 Dose: 5 mg Guaifenesin (Mucinex La) 600 mg PO BID [facility] Last Admin: 12/23/17 20:10 Dose: 600 mg Heparin Sodium (Porcine) (Heparin) 5,000 units SC Q8 [facility] Last Admin: 12/23/17 21:58 Dose: 5,000 units Hydralazine HCl (Apresoline) 50 mg PO Q8 [facility] Last Admin: 12/23/17 21:57 Dose: 50 mg Metronidazole (Flagyl) 500 mg in 100 mls @ 100 mls/hr IVPB Q8 [facility] Last Admin: 12/23/17 21:58 Dose: 100 mls/hr Insulin Aspart (Novolog) 0 unit SC ACHS MATTHEW PRN Reason: Protocol Last Admin: 12/23/17 22:13 Dose: Not Given Metoclopramide HCl (Reglan) 5 mg IVP Q6H [facility] Last Admin: 12/23/17 20:10 Dose: 5 mg Metoprolol Succinate (Toprol Xl) 50 mg PO DAILY [facility] Last Admin: 12/23/17 10:32 Dose: 50 mg Oxycodone/Acetaminophen (Percocet 5/325 Mg Tab) 1 tab PO QID PRN PRN Reason: Pain, Mild (1-3) Stop: 12/25/17 05:54 Last Admin: 12/22/17 06:33 Dose: 1 tab Pantoprazole Sodium (Protonix Inj) 40 mg IVP DAILY [facility] Last Admin: 12/23/17 10:31 Dose: 40 mg Paricalcitol (Zemplar) 2 mcg IV TTS [facility] Last Admin: 12/22/17 16:27 Dose: 2 mcg Polyethylene Glycol/Electrolytes (Golytely) 4,000 ml PO ONCE ONE Stop: 12/25/17 10:01 Rosuvastatin Calcium (Crestor) 5 mg PO HS [facility] Last Admin: 12/23/17 21:57 Dose: 5 mg Senna/Docusate Sodium (Senokot S 50 Mg-8.6 Mg) 2 tab PO HS [facility] Last Admin: 12/23/17 21:58 Dose: 2 tab Sevelamer Carbonate (Renvela) 2.4 gm PO TIDCC [facility] Last Admin: 12/23/17 18:09 Dose: 2.4 gm Vitamin B Complex/Vit C/Folic Acid (Nephro-Benoit) 1 tab PO DAILY [facility] Last Admin: 12/23/17 10:32 Dose: 1 tab - Labs Labs: 12/23/17 08:11 12/23/17 08:11 PT 11.3 SECONDS (9.7-12.2) 12/22/17 03:18 INR 1.0 12/22/17 03:18 APTT 44 SECONDS (21-34) H 12/22/17 03:18 Assessment and Plan (1) Abdominal pain Status: Acute (2) Diverticulitis Status: Acute (3) End stage renal disease Status: Chronic (4) Diabetes Status: Chronic (5) Hypertension Status: Chronic
[2017-12-24] MEDS: metroNIDAZOLE IV 500 mg/100 ml 500 MG/100 ML BAG IVPB SCH ×3 (05:22→17:01)
[2017-12-24 08:15] LABS: BASO % 0.4 % (0.0-2.0); EOS # 0.2 K/uL (0.0-0.7); EOS % 2.7 % (0.0-4.0); HEMOGLOBIN 10.2 g/dL (12.0-18.0); LYMPH % 15.3 % (20.0-40.0); MEAN CELL VOLUME 95.3 fL (80.0-94.0); MEAN CORPUSCULAR HGB CONC 33.6 g/dL (33.0-37.0); MEAN PLATELET VOLUME 8.9 fL (7.2-11.7); MONO # 0.9 K/uL (0.0-0.8); MONO % 13.5 % (0.0-10.0); NEUT # 4.5 K/uL (1.8-7.0); NEUT % 68.1 % (50.0-75.0); NRBC % 0.1 % (0.0-2.0); RBC 3.18 Mil/uL (4.40-5.90); RED CELL DISTRIBUTION WIDTH 15.7 % (11.5-14.5); WHITE BLOOD COUNT 6.7 K/uL (4.8-10.8)
[2017-12-24] MEDS: (Novolog) Insulin Aspart, Recombinant 100 u/ml 10 ml vial SC SCH ×4 (08:22→21:58)
[2017-12-24 08:49] LABS: ALB/GLOB RATIO 0.9 (1.0-2.1); ALBUMIN 3.6 g/dL (3.5-5.0)
[2017-12-24] MEDS: Sevelamer Carb 2.4 gm/Packet PO SCH ×3 (09:00→17:02)
[2017-12-24] MEDS: guaiFENesin 600 mg ER Tab PO SCH ×2 (09:21→17:01)
[2017-12-24] MEDS: Metoprolol Succinate 50 mg XL Tab PO SCH (09:21)
[2017-12-24] MEDS: Multivitamin Vitamin B Complex (Nephro-Vite) Tab PO SCH (09:21)
--- NOTE | 2017-12-24 11:13 | PN ---
DATE: 12/24/2017. LOCATION: [facility], bed A. SUBJECTIVE: This is a 72 years old male seen and examined in rounds post upper endoscopy with biopsy, without reported significant clinical changes, but intermittent period of mild abdominal pain, on wound care so far. The entire chart is reviewed including but not limited to the most recent lab and radiology study results, current and the previous medication list, current and previous medical events, and today's lab show blood glucose level of 90. The patient had low hemoglobin and hematocrit with increased BUN and creatinine as well as elevated CEA level and CA 19-9 for which colonoscopy is to be considered. PHYSICAL EXAMINATION: GENERAL: A 72-year-old male. VITAL SIGNS: Afebrile with pulse of 66, respiratory rate of 20 to 22, blood pressure of 158/66. HEENT: Showed pale, dry oral mucous membrane. Nonicteric sclerae. LUNGS: Few scattered crepitation, decreased air entry at bases. HEART: Positive S1 and S2. ABDOMEN: Soft, bowel sounds are present with mild distention. No mass or organomegaly. No rebound tenderness or guarding. EXTREMITIES: Without edema, clubbing or cyanosis. NEUROLOGIC: No reported new neurological deficits, sensory or motor. IMPRESSION: 1. Peptic ulcer disease. 2. Chronic renal failure, on hemodialysis. 3. Elevated CEA level, the patient for potential colonoscopy after preparation. 4. Known history of but not limited to hypertension, hyperlipidemia, pacemaker insertion due to cardiac arrhythmias. SUGGESTIONS: 1. Continue current management. 2. Repeat stool for occult blood. 3. Further recommendation to follow. Frank Chamorro MD
[2017-12-24] MEDS: Paricalcitol 2 mcg/ml Inj IV SCH (15:25)
[2017-12-24] MEDS: Epoetin Alfa 10,000 unit/ml Dialysis IV SCH (15:26)
--- NOTE | 2017-12-24 16:24 | CP.PCM.PN ---
Subjective - Date & Time of Evaluation Date of Evaluation: 12/24/17 Time of Evaluation: 16:23 - Subjective Subjective: pt is seen and examined, follow up consult is dictated #[id number] s/p hd today, had a uf 2 lit Objective - Vital Signs/Intake and Output Vital Signs (last 24 hours): Temp Pulse Resp BP Pulse Ox 98 F 58 L 16 184/88 H 99 12/24/17 13:00 12/24/17 13:00 12/24/17 13:00 12/24/17 15:00 12/24/17 09:10 Intake and Output: 12/24/17 12/24/17 06:59 18:59 Intake Total 700 Balance 700 - Medications Medications: Current Medications Acetaminophen (Tylenol 325mg Tab) 650 mg PO Q6 PRN PRN Reason: Pain, moderate (4-7) Aspirin (Aspirin Chewable) 81 mg PO DAILY [facility] Last Admin: 12/24/17 09:21 Dose: 81 mg Bisacodyl (Dulcolax) 10 mg PO ONCE ONE Stop: 12/25/17 17:01 Epoetin Omi (Procrit) 10,000 unit IV TTS [facility] Stop: 01/03/18 10:01 Last Admin: 12/24/17 15:26 Dose: 10,000 unit Finasteride (Proscar) 5 mg PO HS [facility] Last Admin: 12/23/17 21:57 Dose: 5 mg Guaifenesin (Mucinex La) 600 mg PO BID [facility] Last Admin: 12/24/17 09:21 Dose: 600 mg Heparin Sodium (Porcine) (Heparin) 5,000 units SC Q8 [facility] Last Admin: 12/24/17 14:06 Dose: Not Given Hydralazine HCl (Apresoline) 50 mg PO Q8 [facility] Last Admin: 12/24/17 14:06 Dose: Not Given Metronidazole (Flagyl) 500 mg in 100 mls @ 100 mls/hr IVPB Q8 [facility] Last Admin: 12/24/17 14:06 Dose: Not Given Insulin Aspart (Novolog) 0 unit SC ACHS MATTHEW PRN Reason: Protocol Last Admin: 12/24/17 12:15 Dose: Not Given Metoclopramide HCl (Reglan) 5 mg IVP Q6H [facility] Last Admin: 12/24/17 14:06 Dose: Not Given Metoprolol Succinate (Toprol Xl) 50 mg PO DAILY [facility] Last Admin: 12/24/17 09:21 Dose: 50 mg Oxycodone/Acetaminophen (Percocet 5/325 Mg Tab) 1 tab PO QID PRN PRN Reason: Pain, Mild (1-3) Stop: 12/25/17 05:54 Last Admin: 12/22/17 06:33 Dose: 1 tab Pantoprazole Sodium (Protonix Inj) 40 mg IVP DAILY [facility] Last Admin: 12/24/17 09:18 Dose: 40 mg Paricalcitol (Zemplar) 2 mcg IV TTS [facility] Last Admin: 12/24/17 15:25 Dose: 2 mcg Polyethylene Glycol/Electrolytes (Golytely) 4,000 ml PO ONCE ONE Stop: 12/25/17 10:01 Rosuvastatin Calcium (Crestor) 5 mg PO HS [facility] Last Admin: 12/23/17 21:57 Dose: 5 mg Senna/Docusate Sodium (Senokot S 50 Mg-8.6 Mg) 2 tab PO HS [facility] Last Admin: 12/23/17 21:58 Dose: 2 tab Sevelamer Carbonate (Renvela) 2.4 gm PO TIDCC [facility] Last Admin: 12/24/17 12:55 Dose: Not Given Vitamin B Complex/Vit C/Folic Acid (Nephro-Benoit) 1 tab PO DAILY [facility] Last Admin: 12/24/17 09:21 Dose: 1 tab - Labs Labs: 12/24/17 08:07 12/24/17 08:07 PT 11.3 SECONDS (9.7-12.2) 12/22/17 03:18 INR 1.0 12/22/17 03:18 APTT 44 SECONDS (21-34) H 12/22/17 03:18
[2017-12-24] MEDS: Docusate-Senna 50 mg-8.6 mg Tab PO SCH (21:58)
--- NOTE | 2017-12-24 23:23 | CP.PCM.PN ---
Subjective - Date & Time of Evaluation Date of Evaluation: 12/24/17 Time of Evaluation: 13:49 Objective - Vital Signs/Intake and Output Vital Signs (last 24 hours): Temp Pulse Resp BP Pulse Ox 98 F 58 L 16 145/85 99 12/24/17 13:00 12/24/17 13:00 12/24/17 13:00 12/24/17 16:20 12/24/17 09:10 - Medications Medications: Current Medications Acetaminophen (Tylenol 325mg Tab) 650 mg PO Q6 PRN PRN Reason: Pain, moderate (4-7) Aspirin (Aspirin Chewable) 81 mg PO DAILY [facility] Last Admin: 12/24/17 09:21 Dose: 81 mg Bisacodyl (Dulcolax) 10 mg PO ONCE ONE Stop: 12/25/17 17:01 Epoetin Omi (Procrit) 10,000 unit IV TTS [facility] Stop: 01/03/18 10:01 Last Admin: 12/24/17 15:26 Dose: 10,000 unit Finasteride (Proscar) 5 mg PO HS [facility] Last Admin: 12/24/17 21:56 Dose: 5 mg Guaifenesin (Mucinex La) 600 mg PO BID [facility] Last Admin: 12/24/17 17:01 Dose: 600 mg Heparin Sodium (Porcine) (Heparin) 5,000 units SC Q8 [facility] Last Admin: 12/24/17 21:56 Dose: 5,000 units Hydralazine HCl (Apresoline) 50 mg PO Q8 [facility] Last Admin: 12/24/17 21:56 Dose: 50 mg Metronidazole (Flagyl) 500 mg in 100 mls @ 100 mls/hr IVPB Q8H [facility] Insulin Aspart (Novolog) 0 unit SC ACHS [facility] PRN Reason: Protocol Last Admin: 12/24/17 21:58 Dose: Not Given Metoclopramide HCl (Reglan) 5 mg IVP Q6H [facility] Last Admin: 12/24/17 21:56 Dose: 5 mg Metoprolol Succinate (Toprol Xl) 50 mg PO DAILY [facility] Last Admin: 12/24/17 09:21 Dose: 50 mg Oxycodone/Acetaminophen (Percocet 5/325 Mg Tab) 1 tab PO QID PRN PRN Reason: Pain, Mild (1-3) Stop: 12/25/17 05:54 Last Admin: 12/22/17 06:33 Dose: 1 tab Pantoprazole Sodium (Protonix Inj) 40 mg IVP DAILY [facility] Last Admin: 12/24/17 09:18 Dose: 40 mg Paricalcitol (Zemplar) 2 mcg IV TTS [facility] Last Admin: 12/24/17 15:25 Dose: 2 mcg Polyethylene Glycol/Electrolytes (Golytely) 4,000 ml PO ONCE ONE Stop: 12/25/17 10:01 Rosuvastatin Calcium (Crestor) 5 mg PO HS [facility] Last Admin: 12/24/17 21:56 Dose: 5 mg Senna/Docusate Sodium (Senokot S 50 Mg-8.6 Mg) 2 tab PO HS [facility] Last Admin: 12/24/17 21:58 Dose: Not Given Sevelamer Carbonate (Renvela) 2.4 gm PO TIDCC [facility] Last Admin: 12/24/17 17:02 Dose: 2.4 gm Vitamin B Complex/Vit C/Folic Acid (Nephro-Benoit) 1 tab PO DAILY [facility] Last Admin: 12/24/17 09:21 Dose: 1 tab - Labs Labs: 12/24/17 08:07 12/24/17 08:07 PT 11.3 SECONDS (9.7-12.2) 12/22/17 03:18 INR 1.0 12/22/17 03:18 APTT 44 SECONDS (21-34) H 12/22/17 03:18 Assessment and Plan (1) Abdominal pain Status: Acute (2) Diverticulitis Status: Acute (3) End stage renal disease Status: Chronic (4) Diabetes Status: Chronic (5) Hypertension Status: Chronic
[2017-12-25] MEDS: metroNIDAZOLE IV 500 mg/100 ml 500 MG/100 ML BAG IVPB SCH ×3 (01:45→17:05)
[2017-12-25] MEDS: (Novolog) Insulin Aspart, Recombinant 100 u/ml 10 ml vial SC SCH ×4 (08:23→21:37)
[2017-12-25] MEDS: Sevelamer Carb 2.4 gm/Packet PO SCH ×3 (08:38→17:06)
[2017-12-25] MEDS: Metoprolol Succinate 50 mg XL Tab PO SCH (09:23)
[2017-12-25] MEDS: Multivitamin Vitamin B Complex (Nephro-Vite) Tab PO SCH (09:23)
[2017-12-25] MEDS: guaiFENesin 600 mg ER Tab PO SCH ×2 (09:23→17:05)
[2017-12-25] MEDS ORDERED: Peg-Electrolyte Oral Soln 4L (Golytely) PO ONE (10:00)
--- NOTE | 2017-12-25 11:48 | CON ---
DATE: 12/22/2017. This is from Dr. Frank Chamorro to Dr. Emilio Israel. I was called for GI consultation by the admitting MD. The patient is seen and fully examined 12/22/2017. The entire chart is reviewed including, but not limited to the most recent lab and radiology study results, current and the previous medication list, current and the previous medical events, allergy to medication list, as well as all the available current and the previous medical records. Case discussed with the staff at length. HISTORY OF PRESENT ILLNESS: This is a 72 years old male who was admitted to the hospital through the emergency room with a main complaint of severe diffuse abdominal pain, who was seen recently due to the same symptoms, was placed on antibiotics, but his pain had been worse with reported episode of nausea, vomiting, and dyspepsia. No reported active bleeding. No chills or fever, but persistent dyspepsia with generalized weakness and malaise. No chest pain or palpitations. PAST MEDICAL HISTORY: Including, but not limited to; 1. Peptic ulcer disease. 2. Hyperlipidemia. 3. Hypertension. 4. End-stage renal disease on hemodialysis. 5. 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 FAMILY HISTORY: Unknown. SOCIAL HISTORY: Positive for cigarette smoking, but no recent alcohol intake. The patient is a former excessive alcohol intaker. LABORATORY DATA: Initial blood work at the time of the admission showed low hemoglobin of 10.9, hematocrit 32.6, increased blood glucose level 154, potassium 5.6, BUN 35 and creatinine 0.6. PHYSICAL EXAMINATION: GENERAL: A 72 years old male. VITAL SIGNS: Afebrile with pulse of 68, respiratory rate of 18 to 20, and blood pressure of 170/70. HEENT: Showed pale dry oral mucoid membrane, nonicteric sclerae. LUNGS: Few scattered crepitations with decreased air entry bilaterally. LYMPH NODES: No lymphadenitis or lymphadenopathy. HEART: Positive S1 and S2. ABDOMEN: Soft with mild distention and generalized tenderness. Bowel sounds are present. No mass or organomegaly. No rebound tenderness or guarding. RECTAL: Guaiac stool positive stool. EXTREMITIES: Without reported significant clubbing or cyanosis, but mild edematous changes. NEUROLOGIC: No new reported new neurological deficits, sensory or motor. IMPRESSION: 1. Reexacerbation of peptic ulcer disease, to rule out gastric versus duodenal ulcer, to rule out less likely partial gastric outlet obstruction. 2. Keeping in mind the patient's reported history of diverticulitis possibility of recurrent, early stage of diverticulitis was raised. 3. Anemia that could be secondary to chronic disease versus gastrointestinal blood loss. 4. Multiple past medical history as mentioned above. 5. Rule out occult gastrointestinal malignancy. SUGGESTIONS: 1. Agree with your plan. 2. Reglan IV. 3. Proton pump inhibitors IV. 4. Endoscopic evaluation of the GI tract. 5. subsequent drop of hemoglobin and hematocrit and reported guaiac positive stool. 6. The patient denied any recent history for endoscopic GI tract if any. 7. Further recommendation to follow. Thank you for letting me to participate in your patient's case management. Will followup closely with you. Frank Chamorro MD
--- NOTE | 2017-12-25 13:46 | PN ---
DATE: 12/25/2017. LOCATION: [facility], bed A. SUBJECTIVE: This is a 72 years old male seen and examined early in rounds. The case discussed with staff at length, without reported bleeding but intermittent period of mild abdominal pain with mild nausea. The patient is still on hemodialysis. The entire chart is reviewed including but not limited to the most recent lab and radiology study results, current and the previous medication list, current and previous medical events. The case discussed with staff at length. Today's lab showed blood glucose level of 102, rest of the lab is still pending. PHYSICAL EXAMINATION: GENERAL: A 72 years old male appeared to be alert, awake and oriented. VITAL SIGNS: Afebrile with pulse of 84, respiratory rate of 20 to 22, blood pressure of 136/66. HEENT: Showed mildly pale, dry oral mucous membrane. Nonicteric sclerae. LUNGS: Few scattered crepitation, decreased air entry at bases. HEART: Positive S1 and S2. ABDOMEN: With generalized tenderness and slight distention. No mass or organomegaly. No rebound tenderness or guarding. Bowel sounds are present. EXTREMITIES: With slight lower extremity edematous changes. No clubbing or cyanosis. NEUROLOGIC: No new reported neurological deficits, sensory or motor. Peripheral pulses are present bilaterally. IMPRESSION: 1. Peptic ulcer disease. 2. Elevated CEA levels, to rule out lower gastrointestinal tract cancer. 3. Chronic renal failure, on hemodialysis. 4. Known history of hyperlipidemia, hypertension, cardiac arrhythmias with status post pacemaker insertion. 5. Anemia, that could be secondary to chronic disease versus gastrointestinal blood loss. 6. Elevated CA 19-9 of unclear etiology, no clear of evidence of pancreatic cancer; however, the patient may need abdominal ultrasound versus MRCP before DC home. SUGGESTIONS: 1. Continue current management. 2. The patient is for colonoscopy at a.m. 3. Further recommendation to follow. Frank Chamorro MD
[2017-12-25] MEDS ORDERED: Bisacodyl 5mg EC Tab PO ONE ×2 (17:00→20:00)
--- NOTE | 2017-12-25 17:16 | CP.PCM.PN ---
Subjective - Date & Time of Evaluation Date of Evaluation: 12/25/17 Time of Evaluation: 17:16 - Subjective Subjective: pt is seen and examined, follow up consult is dictated #[id number] Objective - Vital Signs/Intake and Output Vital Signs (last 24 hours): Temp Pulse Resp BP Pulse Ox 98 F 80 18 121/55 L 96 12/25/17 15:35 12/25/17 15:35 12/25/17 15:35 12/25/17 15:35 12/25/17 15:35 - Medications Medications: Current Medications Acetaminophen (Tylenol 325mg Tab) 650 mg PO Q6 PRN PRN Reason: Pain, moderate (4-7) Aspirin (Aspirin Chewable) 81 mg PO DAILY [facility] Last Admin: 12/25/17 09:23 Dose: 81 mg Bisacodyl (Dulcolax) 10 mg PO ONCE ONE Stop: 12/25/17 20:01 Epoetin Omi (Procrit) 10,000 unit IV TTS [facility] Stop: 01/03/18 10:01 Last Admin: 12/24/17 15:26 Dose: 10,000 unit Finasteride (Proscar) 5 mg PO HS [facility] Last Admin: 12/24/17 21:56 Dose: 5 mg Guaifenesin (Mucinex La) 600 mg PO BID [facility] Last Admin: 12/25/17 17:05 Dose: 600 mg Hydralazine HCl (Apresoline) 50 mg PO Q8 [facility] Last Admin: 12/25/17 14:10 Dose: 50 mg Metronidazole (Flagyl) 500 mg in 100 mls @ 100 mls/hr IVPB Q8H [facility] Last Admin: 12/25/17 17:05 Dose: 100 mls/hr Insulin Aspart (Novolog) 0 unit SC ACHS [facility] PRN Reason: Protocol Last Admin: 12/25/17 17:14 Dose: Not Given Magnesium Citrate (Citrate Of Mag) 120 ml PO ONCE ONE Stop: 12/25/17 18:01 Last Admin: 12/25/17 17:04 Dose: 120 ml Metoclopramide HCl (Reglan) 5 mg IVP Q6H [facility] Last Admin: 12/25/17 14:11 Dose: 5 mg Metoprolol Succinate (Toprol Xl) 50 mg PO DAILY [facility] Last Admin: 12/25/17 09:23 Dose: 50 mg Pantoprazole Sodium (Protonix Inj) 40 mg IVP DAILY [facility] Last Admin: 12/25/17 09:22 Dose: 40 mg Paricalcitol (Zemplar) 2 mcg IV TTS [facility] Last Admin: 12/24/17 15:25 Dose: 2 mcg Rosuvastatin Calcium (Crestor) 5 mg PO HS [facility] Last Admin: 12/24/17 21:56 Dose: 5 mg Senna/Docusate Sodium (Senokot S 50 Mg-8.6 Mg) 2 tab PO HS [facility] Last Admin: 12/24/17 21:58 Dose: Not Given Sevelamer Carbonate (Renvela) 2.4 gm PO TIDCC [facility] Last Admin: 12/25/17 17:06 Dose: Not Given Vitamin B Complex/Vit C/Folic Acid (Nephro-Benoit) 1 tab PO DAILY [facility] Last Admin: 12/25/17 09:23 Dose: 1 tab - Labs Labs: 12/24/17 08:07 12/24/17 08:07 PT 11.3 SECONDS (9.7-12.2) 12/22/17 03:18 INR 1.0 12/22/17 03:18 APTT 44 SECONDS (21-34) H 12/22/17 03:18
[2017-12-25] MEDS ORDERED: Magnesium Citrate Oral SOL (300 ml) PO ONE (18:00)
[2017-12-25] MEDS: Docusate-Senna 50 mg-8.6 mg Tab PO SCH (21:44)
--- NOTE | 2017-12-25 23:20 | CP.PCM.PN ---
Subjective - Date & Time of Evaluation Date of Evaluation: 12/25/17 Time of Evaluation: 17:00 - Subjective Subjective: Pt seen and evaluated at bedside, pt is for colononscopy in am Objective - Vital Signs/Intake and Output Vital Signs (last 24 hours): Temp Pulse Resp BP Pulse Ox 98 F 80 18 121/55 L 96 12/25/17 15:35 12/25/17 15:35 12/25/17 15:35 12/25/17 15:35 12/25/17 15:35 Intake and Output: 12/25/17 12/26/17 18:59 06:59 Intake Total 100 Balance 100 - Medications Medications: Current Medications Acetaminophen (Tylenol 325mg Tab) 650 mg PO Q6 PRN PRN Reason: Pain, moderate (4-7) Aspirin (Aspirin Chewable) 81 mg PO DAILY [facility] Last Admin: 12/25/17 09:23 Dose: 81 mg Epoetin Omi (Procrit) 10,000 unit IV TTS [facility] Stop: 01/03/18 10:01 Last Admin: 12/24/17 15:26 Dose: 10,000 unit Finasteride (Proscar) 5 mg PO HS [facility] Last Admin: 12/25/17 21:43 Dose: 5 mg Guaifenesin (Mucinex La) 600 mg PO BID [facility] Last Admin: 12/25/17 17:05 Dose: 600 mg Hydralazine HCl (Apresoline) 50 mg PO Q8 [facility] Last Admin: 12/25/17 21:44 Dose: 50 mg Metronidazole (Flagyl) 500 mg in 100 mls @ 100 mls/hr IVPB Q8H [facility] Last Admin: 12/25/17 17:05 Dose: 100 mls/hr Insulin Aspart (Novolog) 0 unit SC ACHS [facility] PRN Reason: Protocol Last Admin: 12/25/17 21:37 Dose: Not Given Metoclopramide HCl (Reglan) 5 mg IVP Q6H [facility] Last Admin: 12/25/17 20:21 Dose: 5 mg Metoprolol Succinate (Toprol Xl) 50 mg PO DAILY [facility] Last Admin: 12/25/17 09:23 Dose: 50 mg Pantoprazole Sodium (Protonix Inj) 40 mg IVP DAILY [facility] Last Admin: 12/25/17 09:22 Dose: 40 mg Paricalcitol (Zemplar) 2 mcg IV TTS [facility] Last Admin: 12/24/17 15:25 Dose: 2 mcg Rosuvastatin Calcium (Crestor) 5 mg PO HS [facility] Last Admin: 12/25/17 21:44 Dose: 5 mg Senna/Docusate Sodium (Senokot S 50 Mg-8.6 Mg) 2 tab PO HS [facility] Last Admin: 12/25/17 21:44 Dose: 2 tab Sevelamer Carbonate (Renvela) 2.4 gm PO TIDCC [facility] Last Admin: 12/25/17 17:06 Dose: Not Given Vitamin B Complex/Vit C/Folic Acid (Nephro-Benoit) 1 tab PO DAILY [facility] Last Admin: 12/25/17 09:23 Dose: 1 tab - Labs Labs: 12/24/17 08:07 12/24/17 08:07 PT 11.3 SECONDS (9.7-12.2) 12/22/17 03:18 INR 1.0 12/22/17 03:18 APTT 44 SECONDS (21-34) H 12/22/17 03:18 - Constitutional Appears: No Acute Distress - Head Exam Head Exam: ATRAUMATIC, NORMAL INSPECTION, NORMOCEPHALIC - Eye Exam Eye Exam: EOMI, Normal appearance, PERRL Pupil Exam: NORMAL ACCOMODATION, PERRL - Respiratory Exam Respiratory Exam: Clear to Ausculation Bilateral, NORMAL BREATHING PATTERN - Cardiovascular Exam Cardiovascular Exam: REGULAR RHYTHM, +S1, +S2. absent: Murmur - GI/Abdominal Exam GI & Abdominal Exam: Soft, Normal Bowel Sounds. absent: Tenderness Assessment and Plan (1) Abdominal pain Status: Acute (2) Diverticulitis Status: Acute (3) End stage renal disease Status: Chronic (4) Diabetes Status: Chronic (5) Hypertension Status: Chronic
[2017-12-26] MEDS: metroNIDAZOLE IV 500 mg/100 ml 500 MG/100 ML BAG IVPB SCH ×3 (01:36→17:01)
--- NOTE | 2017-12-26 05:14 | PN ---
DATE: 12/25/2017 The patient is located in room 562, bed A. Requested by Dr. Emilio Israel. REASON FOR FOLLOWUP: End-stage renal disease, continuation of hemodialysis. SUBJECTIVE: Mr. Richards is a 72-year-old elderly male with a history of longstanding hypertension, diabetes, end-stage renal disease, hyperlipidemia, BPH, status post pacemaker placement, who was admitted with chief complaints of nausea and slight abdominal discomfort and left lower quadrant pain, is being treated for possible colitis versus diverticulitis. The patient is feeling much better with IV antibiotics and denies any chest pain or palpitation. Denies any nausea, vomiting, abdominal pain today. Status post EGD consistent with hiatal hernia and gastritis and duodenitis. The patient is scheduled for colonoscopy tomorrow. PHYSICAL EXAMINATION: VITAL SIGNS: As follows: Blood pressure 121/55, pulse 80, respirations 18, temperature 98, saturation 96%. Height 6 feet 1 inch, weight is 205 pounds. GENERAL: Mr. Richards is a 72-year-old elderly male, moderately built, moderately nourished, not in distress. HEENT: Pupils normal and reactive to light and accommodation. Conjunctivae pink. Sclerae anicteric. Tongue is moist. Trachea is midline. LUNGS: Symmetric on both sides. Bilateral breath sounds present. Clear on auscultation. CVS: [place] at the fifth intercostal space, midclavicular area. S1 and S2 audible. No murmur or gallop. ABDOMEN: Normal in appearance, soft, tympanic. No guarding. No rigidity. No hepatosplenomegaly. NEUROSURGERY PHYSICIAN: The patient is alert, awake, and oriented x3. Nonfocal neuro examination. Cranial nerves II-XII grossly intact. Sensory and motor system is within normal limits. EXTREMITIES: No cyanosis, no clubbing, no edema on the right side. 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 CURRENT MEDICATIONS: Include as follows: Hydralazine 50 mg p.o. q.8 hours, aspirin 81 mg daily, Crestor 5 mg at bedtime, Flagyl 500 mg IV piggyback q.8 hours, Mucinex 600 mg p.o. b.i.d., Nephro-Benoit 1 tablet daily, NovoLog insulin per sliding scale, Procrit 10,000 units three times a week, Proscar 5 mg p.o. at bedtime, Protonix 40 mg IV daily, Reglan 5 mg IV q.6 hours, senna 2 tablets p.o. at bedtime, metoprolol 50 mg p.o. daily, Tylenol 650 mg p.o. q.6 hours, Zemplar 2 mcg three times a week. No new labs are available. Accu-Cheks: 102, 185, 159. In summary, Mr. Richards is a 72-year-old elderly male with a history of hypertension, diabetes, hyperlipidemia, BPH, end-stage renal disease, on hemodialysis three times a week, status post left BKA, status post pacemaker, was admitted with nausea and abdominal discomfort and left lower quadrant pain. 1. End-stage renal disease. Continue hemodialysis three times a week, Tuesday, , Tuesday. 2. Hypertension. Blood pressure is stable. 3. Diabetes. 4. Abdominal pain with nausea, rule out colitis, rule out diverticulitis. The patient is scheduled for colonoscopy in a.m. We will follow with you. Thank you for allowing me to participate in your patient's care. Continue his phosphate binders. Case discussed with Dr. Israel for possible discharge after colonoscopy if negative. Blanca Thakkar MD
[2017-12-26] MEDS: (Novolog) Insulin Aspart, Recombinant 100 u/ml 10 ml vial SC SCH ×5 (08:12→21:55)
[2017-12-26] MEDS: Sevelamer Carb 2.4 gm/Packet PO SCH ×3 (08:16→17:00)
[2017-12-26 10:08] LABS: HEMOGLOBIN 10.6 g/dL (12.0-18.0); MEAN CELL VOLUME 96.8 fL (80.0-94.0); MEAN CORPUSCULAR HEMOGLOBIN 32.1 pg (27.0-31.0); MEAN CORPUSCULAR HGB CONC 33.2 g/dL (33.0-37.0); MEAN PLATELET VOLUME 8.9 fL (7.2-11.7); RBC 3.29 Mil/uL (4.40-5.90); WHITE BLOOD COUNT 6.8 K/uL (4.8-10.8)
--- NOTE | 2017-12-26 10:18 | PN ---
FOLLOWUP RENAL CONSULTATION DATE: LOCATION: The patient is located in room 564, bed A. REQUESTED BY: Emilio Israel MD REASON FOR FOLLOWUP: End-stage renal disease for continuation of hemodialysis. SUBJECTIVE: Mr. Richards is a 72-year-old elderly male with history of longstanding hypertension, diabetes, status post cardiac arrest, status post AICD placement, end-stage renal disease, status post left BKA, who was admitted with chief complaint of nausea and decreased p.o. intake and left lower quadrant abdominal pain. The patient is feeling slightly better today not in distress. No chest pain. No palpitation. No fever. No cough. PHYSICAL EXAMINATION: VITAL SIGNS: As follows, blood pressure 144/58, pulse 62, respirations 20, temperature 97 and saturation 95%. Height 6 feet 1 inch and weight is 205 pounds. GENERAL: Mr. Richards is a 72-year-old elderly male, moderately built, moderately nourished, not in acute distress. HEENT: Pupils normal, reactive to light and accommodation. Conjunctivae pink. Sclerae anicteric. Tongue is moist. Trachea is midline. LUNGS: Symmetric on both sides, bilateral breath sounds present and clear on auscultation. CVS: [place] at the fifth intercostal space, midclavicular line, S1 and S2 audible. No murmur. No gallop. The patient has a pacemaker in the left subclavian region. ABDOMEN: Slightly protuberant. Soft and tympanic. Mild left lower quadrant tenderness present. No guarding. No rigidity. No hepatosplenomegaly. WEATHER REPORTER: The patient is alert, awake, and oriented x3. Sensory system is grossly within normal limits. Motor system normal, status post left BKA. EXTREMITIES: No cyanosis. No clubbing. No edema on the right leg. LABORATORY DATA: Include as follows as of 12/23/2017, WBC 6.3, hemoglobin 10.3, hematocrit 30.8 and platelets 182. Sodium 136, potassium 4.8, chloride 92, CO2 of 32, BUN 35, creatinine 7.5, glucose 127 and calcium is 8.0. ASSESSMENT AND PLAN: In summary, Mr. Richards is a 72-year-old elderly male with history of longstanding hypertension, diabetes, end-stage renal disease, who was admitted with nausea, abdominal discomfort. The patient underwent esophagogastroduodenoscopy consistent with hiatal hernia, gastritis, duodenitis and scheduled for colonoscopy also. 1. End-stage renal disease. Continue hemodialysis three times a week, Tuesday, and Tuesday. 2. Hypertension. Blood pressure is stable. 3. Diabetes. 4. Left lower quadrant pain, rule out diverticulitis. We will follow with you. Thank you for allowing me to participate in your patient's care. The patient's case discussed with Dr. Emilio Israel in rounds and we will schedule for hemodialysis in a.m. Blanca Thakkar MD
--- NOTE | 2017-12-26 10:19 | PN ---
FOLLOWUP RENAL CONSULTATION DATE: LOCATION: The patient is located in room 562, bed A. REQUESTED BY: Emilio Israel MD REASON FOR FOLLOWUP: End-stage renal dialysis, continuation of the hemodialysis. SUBJECTIVE: Mr. Richards is a 72-year-old elderly male with past medical history significant for longstanding hypertension, diabetes, hyperlipidemia, end-stage renal dialysis on hemodialysis 3 times a week Tuesday, and Tuesday, status post cardiac arrest and status post pacemaker placement and status post left BKA who was admitted with chief complaints of nausea and decreased p.o. intake and left lower quadrant pain. The patient is being treated for possible diverticulitis. The patient claims his pain is much better now status post EGD on Tuesday consistent with duodenitis, gastritis and hiatal hernia, possible colonoscopy on early next week. PHYSICAL EXAMINATION GENERAL: Mr. Richards is a 72-year-old elderly male moderately-built, moderately-nourished, not in acute distress. VITAL SIGNS: As follows; blood pressure 145/85, pulse 58, respirations 16, temperature 98 and saturation 99%. Height 6 feet 1 inch and weight is 205 pounds. HEENT: Pupils are normal and reactive to light and accommodation. Conjunctivae pink. Sclerae anicteric. Tongue is moist. Trachea is midline. LUNGS: Symmetric on both sides. Bilateral breath sounds present. Clear on auscultation. CARDIOVASCULAR SYSTEM: [place] at the fifth intercostal space, midclavicular line. S1 and S2 audible. No murmur and no gallop. ABDOMEN: Normal in appearance, soft, and tympanic. No guarding. No rigidity. Mild left lower quadrant tenderness present. No abdominal bruits. CENTRAL NERVOUS SYSTEM: The patient is alert, awake and oriented x3. Nonfocal neuro examination. Cranial nerves II through XII grossly intact. Sensory and motor system is within normal limits. EXTREMITIES: No cyanosis. No clubbing. No edema on the right leg status post left BKA. CURRENT MEDICATIONS: Include as follows; hydralazine 50 mg p.o. q.8 hours, aspirin 81 mg daily, Crestor 5 mg p.o. at bedtime, Dulcolax 10 mg p.o., Flagyl 500 mg IV q.8 hours, GoLYTELY, and subq heparin 5000 q.8 hours, Mucinex 600 mg p.o. b.i.d., Nephro-Benoit one tablet daily, Percocet one tablet p.o. q.i.d. p.r.n., Epogen 10,000 units 3 times a week, Proscar 5 mg p.o. at bedtime, Protonix 40 mg IV daily, Reglan 5 mg IV q.6 hours, Senokot 2 tablets p.o. at bedtime, Toprol XL 50 mg p.o. daily, Tylenol 650 mg p.o. q.6 hours and Zemplar 2 mcg 3 times a week. LABORATORY DATA: Include as follows: As of 12/24/2017, WBC 6.7, hemoglobin 10.2, hematocrit 30.3 and platelets 171. Sodium 136, potassium 4.9, chloride 94, CO2 of 28, BUN 50, creatinine 9.5, glucose 172 and calcium is 8. Total bili 0.8. AST 21, ALT 218, alkaline phosphatase is 85, total protein is 7.6 and albumin is 3.6. Blood culture negative day 2 from 12/22/2017. ASSESSMENT AND PLAN: In summary, Mr. iRchards is a 72-year-old elderly male with history of longstanding hypertension, diabetes, hyperlipidemia, benign prostatic hypertrophy, end-stage renal disease status post pacemaker and status post left below-knee amputation who was admitted with nausea and left flank pain and decreased p.o. intake. 1. End-stage renal disease. The patient underwent hemodialysis today, had ultrafiltration about 2 L, tolerated very well without any complication. 2. Hypertension. 3. Diabetes. 4. Rule out diverticulitis. Continue Flagyl and follow up with Gastroenterology for further management and for possible colonoscopy. We will follow with you. Thank you for allowing me to participate in your patient's care. Blanca Thakkar MD
[2017-12-26 10:30] LABS: ALB/GLOB RATIO 0.9 (1.0-2.1); ALBUMIN 3.6 g/dL (3.5-5.0); CALCIUM 7.8 mg/dl (8.6-10.4)
[2017-12-26] MEDS: Multivitamin Vitamin B Complex (Nephro-Vite) Tab PO SCH ×2 (11:19→14:06)
[2017-12-26] MEDS: guaiFENesin 600 mg ER Tab PO SCH ×2 (11:19→17:00)
[2017-12-26] MEDS: Metoprolol Succinate 50 mg XL Tab PO SCH ×2 (11:20→14:01)
[2017-12-26] MEDS ORDERED: Propofol 10 mg/ml Inj (20 ML) ONE (11:29)
[2017-12-26] MEDS ORDERED: Etomidate 20 mg/10ml Inj IV ONE (11:29)
--- NOTE | 2017-12-26 11:36 | CP.PCM.PN ---
Subjective - Date & Time of Evaluation Date of Evaluation: 12/26/17 Time of Evaluation: 18:00 - Subjective Subjective: pt seen and examined Objective - Vital Signs/Intake and Output Vital Signs (last 24 hours): Temp Pulse Resp BP Pulse Ox 98.9 F 81 18 148/65 97 12/26/17 05:54 12/26/17 05:54 12/26/17 05:54 12/26/17 05:54 12/26/17 05:54 Intake and Output: 12/26/17 12/26/17 06:59 18:59 Intake Total 200 Balance 200 - Medications Medications: Current Medications Acetaminophen (Tylenol 325mg Tab) 650 mg PO Q6 PRN PRN Reason: Pain, moderate (4-7) Aspirin (Aspirin Chewable) 81 mg PO DAILY [facility] Last Admin: 12/26/17 11:19 Dose: Not Given Epoetin Omi (Procrit) 10,000 unit IV TTS [facility] Stop: 01/03/18 10:01 Last Admin: 12/24/17 15:26 Dose: 10,000 unit Finasteride (Proscar) 5 mg PO HS [facility] Last Admin: 12/25/17 21:43 Dose: 5 mg Guaifenesin (Mucinex La) 600 mg PO BID [facility] Last Admin: 12/26/17 11:19 Dose: Not Given Hydralazine HCl (Apresoline) 50 mg PO Q8 [facility] Last Admin: 12/26/17 05:32 Dose: 50 mg Metronidazole (Flagyl) 500 mg in 100 mls @ 100 mls/hr IVPB Q8H [facility] Last Admin: 12/26/17 08:17 Dose: 100 mls/hr Insulin Aspart (Novolog) 0 unit SC ACHS [facility] PRN Reason: Protocol Last Admin: 12/26/17 08:57 Dose: Not Given Metoclopramide HCl (Reglan) 5 mg IVP Q6H [facility] Last Admin: 12/26/17 08:17 Dose: 5 mg Metoprolol Succinate (Toprol Xl) 50 mg PO DAILY [facility] Last Admin: 12/26/17 11:20 Dose: Not Given Pantoprazole Sodium (Protonix Inj) 40 mg IVP DAILY [facility] Last Admin: 12/26/17 11:19 Dose: Not Given Paricalcitol (Zemplar) 2 mcg IV TTS [facility] Last Admin: 12/24/17 15:25 Dose: 2 mcg Rosuvastatin Calcium (Crestor) 5 mg PO [facility] Last Admin: 12/25/17 21:44 Dose: 5 mg Senna/Docusate Sodium (Senokot S 50 Mg-8.6 Mg) 2 tab PO HS [facility] Last Admin: 12/25/17 21:44 Dose: 2 tab Sevelamer Carbonate (Renvela) 2.4 gm PO TIDCC [facility] Last Admin: 12/26/17 08:16 Dose: Not Given Vitamin B Complex/Vit C/Folic Acid (Nephro-Benoit) 1 tab PO DAILY [facility] Last Admin: 12/26/17 11:19 Dose: Not Given - Labs Labs: 12/26/17 09:59 12/26/17 09:59 PT 11.3 SECONDS (9.7-12.2) 12/22/17 03:18 INR 1.0 12/22/17 03:18 APTT 44 SECONDS (21-34) H 12/22/17 03:18 Assessment and Plan (1) Abdominal pain Status: Acute (2) Diverticulitis Status: Acute (3) End stage renal disease Status: Chronic (4) Diabetes Status: Chronic (5) Hypertension Status: Chronic
[2017-12-26] MEDS ORDERED: Sodium Chloride 0.9% 1,000 ML IV ONE (11:40)
--- NOTE | 2017-12-26 13:09 | CP.PCM.PN ---
Subjective - Date & Time of Evaluation Date of Evaluation: 12/26/17 Time of Evaluation: 13:09 - Subjective Subjective: pt is seen and examined, follow up consult is dictated #[id number] Objective - Vital Signs/Intake and Output Vital Signs (last 24 hours): Temp Pulse Resp BP Pulse Ox 97.9 F 57 L 12 153/54 H 100 12/26/17 12:15 12/26/17 12:45 12/26/17 12:45 12/26/17 12:45 12/26/17 12:45 Intake and Output: 12/26/17 12/26/17 06:59 18:59 Intake Total 200 Balance 200 - Medications Medications: Current Medications Acetaminophen (Tylenol 325mg Tab) 650 mg PO Q6 PRN PRN Reason: Pain, moderate (4-7) Aspirin (Aspirin Chewable) 81 mg PO DAILY [facility] Last Admin: 12/26/17 11:19 Dose: Not Given Epoetin Omi (Procrit) 10,000 unit IV TTS [facility] Stop: 01/03/18 10:01 Last Admin: 12/24/17 15:26 Dose: 10,000 unit Finasteride (Proscar) 5 mg PO HS [facility] Last Admin: 12/25/17 21:43 Dose: 5 mg Guaifenesin (Mucinex La) 600 mg PO BID [facility] Last Admin: 12/26/17 11:19 Dose: Not Given Hydralazine HCl (Apresoline) 50 mg PO Q8 [facility] Last Admin: 12/26/17 05:32 Dose: 50 mg Metronidazole (Flagyl) 500 mg in 100 mls @ 100 mls/hr IVPB Q8H [facility] Last Admin: 12/26/17 08:17 Dose: 100 mls/hr Insulin Aspart (Novolog) 0 unit SC ACHS [facility] PRN Reason: Protocol Last Admin: 12/26/17 08:57 Dose: Not Given Metoclopramide HCl (Reglan) 5 mg IVP Q6H [facility] Last Admin: 12/26/17 08:17 Dose: 5 mg Metoprolol Succinate (Toprol Xl) 50 mg PO DAILY [facility] Last Admin: 12/26/17 11:20 Dose: Not Given Pantoprazole Sodium (Protonix Inj) 40 mg IVP DAILY [facility] Last Admin: 12/26/17 11:19 Dose: Not Given Paricalcitol (Zemplar) 2 mcg IV TTS [facility] Last Admin: 12/24/17 15:25 Dose: 2 mcg Rosuvastatin Calcium (Crestor) 5 mg PO HS [facility] Last Admin: 12/25/17 21:44 Dose: 5 mg Senna/Docusate Sodium (Senokot S 50 Mg-8.6 Mg) 2 tab PO HS [facility] Last Admin: 12/25/17 21:44 Dose: 2 tab Sevelamer Carbonate (Renvela) 2.4 gm PO TIDCC [facility] Last Admin: 12/26/17 13:09 Dose: Not Given Vitamin B Complex/Vit C/Folic Acid (Nephro-Benoit) 1 tab PO DAILY [facility] Last Admin: 12/26/17 11:19 Dose: Not Given - Labs Labs: 12/26/17 09:59 12/26/17 09:59 PT 11.3 SECONDS (9.7-12.2) 12/22/17 03:18 INR 1.0 12/22/17 03:18 APTT 44 SECONDS (21-34) H 12/22/17 03:18
--- NOTE | 2017-12-26 15:54 | CP.PCM.PN ---
Subjective - Date & Time of Evaluation Date of Evaluation: 12/26/17 Time of Evaluation: 15:49 - Subjective Subjective: PT HAD COLONOSCOPY THIS MORNING AND TOLERATED WELL. TOLERATED FOOD FOR LUNCH AFTER PROCEDURE WELL. NO FURTHER C/O ABD PAIN, N/V. DURING DISCUSSION OF D / C HOME PT C/O FEELING "JITTERY" AND " STUTTERING" FOR 3 DAYS. I ASKED HIM IF HE NOTIFIED ANYONE AND HE SAID "YES THE NURSE." PT ALSO STATES HE DOES NOT REMEMBER SEEING HIS DOCTORS OVER THE WEEKEND AND NOT SURE IF Claudine GLEASON IS AWARE OF THESE COMPLAINTS. PT IS, HOWEVER, AAOX3 AND SPEECH IS CLEAR, NO SLURRING WORDS; ALL EXTREMITIES MOVING EQUALLY. UPON REVIEW OF CHART AND MEDS I NOTICED PT HAS BEEN RECEIVING REGLAN 10 MG IVP Q6 HOURS AROUND THE CLOCK. POSS MILD EPS? NOTIFIED Claudine GLEASON OF THIS. PT REQUESTING TO SPEAK TO HIM BEFORE D/C. PER DR. GLEASON, SET PT UP FOR 7 PM TO GO. WILL LEAVE ALL D/C INSTRUCTIONS DONE; RX FOR TOPROL XL SENT TO PT'S PHARMACY. STOP SOTALOL PER DR GLEASON. NO FURTHER ORDERS. Objective - Vital Signs/Intake and Output Vital Signs (last 24 hours): Temp Pulse Resp BP Pulse Ox 97.9 F 60 12 171/82 H 100 12/26/17 12:15 12/26/17 13:14 12/26/17 12:45 12/26/17 13:14 12/26/17 12:45 Intake and Output: 12/26/17 12/26/17 06:59 18:59 Intake Total 200 380 Balance 200 380 - Medications Medications: Current Medications Acetaminophen (Tylenol 325mg Tab) 650 mg PO Q6 PRN PRN Reason: Pain, moderate (4-7) Aspirin (Aspirin Chewable) 81 mg PO DAILY [facility] Last Admin: 12/26/17 14:02 Dose: 81 mg Epoetin Omi (Procrit) 10,000 unit IV TTS [facility] Stop: 01/03/18 10:01 Last Admin: 12/24/17 15:26 Dose: 10,000 unit Finasteride (Proscar) 5 mg PO HS [facility] Last Admin: 12/25/17 21:43 Dose: 5 mg Guaifenesin (Mucinex La) 600 mg PO BID [facility] Last Admin: 12/26/17 11:19 Dose: Not Given Hydralazine HCl (Apresoline) 50 mg PO Q8 [facility] Last Admin: 12/26/17 13:15 Dose: 50 mg Metronidazole (Flagyl) 500 mg in 100 mls @ 100 mls/hr IVPB Q8H [facility] Last Admin: 12/26/17 08:17 Dose: 100 mls/hr Insulin Aspart (Novolog) 0 unit SC ACHS [facility] PRN Reason: Protocol Last Admin: 12/26/17 12:30 Dose: Not Given Metoclopramide HCl (Reglan) 5 mg IVP Q6H [facility] Last Admin: 12/26/17 13:15 Dose: 5 mg Metoprolol Succinate (Toprol Xl) 50 mg PO DAILY [facility] Last Admin: 12/26/17 14:01 Dose: 50 mg Pantoprazole Sodium (Protonix Inj) 40 mg IVP DAILY [facility] Last Admin: 12/26/17 14:01 Dose: 40 mg Paricalcitol (Zemplar) 2 mcg IV TTS [facility] Last Admin: 12/24/17 15:25 Dose: 2 mcg Rosuvastatin Calcium (Crestor) 5 mg PO HS [facility] Last Admin: 12/25/17 21:44 Dose: 5 mg Senna/Docusate Sodium (Senokot S 50 Mg-8.6 Mg) 2 tab PO HS [facility] Last Admin: 12/25/17 21:44 Dose: 2 tab Sevelamer Carbonate (Renvela) 2.4 gm PO TIDCC [facility] Last Admin: 12/26/17 13:09 Dose: Not Given Vitamin B Complex/Vit C/Folic Acid (Nephro-Benoit) 1 tab PO DAILY [facility] Last Admin: 12/26/17 14:06 Dose: 1 tab - Labs Labs: 12/26/17 09:59 12/26/17 09:59 PT 11.3 SECONDS (9.7-12.2) 12/22/17 03:18 INR 1.0 12/22/17 03:18 APTT 44 SECONDS (21-34) H 12/22/17 03:18
[2017-12-26] MEDS: Docusate-Senna 50 mg-8.6 mg Tab PO SCH (21:46)
[2017-12-27] MEDS: metroNIDAZOLE IV 500 mg/100 ml 500 MG/100 ML BAG IVPB SCH ×3 (00:08→17:50)
--- NOTE | 2017-12-27 06:56 | PN ---
DATE: 12/26/2017. FOLLOWUP RENAL CONSULTATION LOCATION: 562, bed A. REQUESTED BY: Dr. Emilio Israel. REASON FOR FOLLOWUP: End-stage renal disease, continuation with hemodialysis. SUBJECTIVE: Mr. Richards is a 72 years elderly very pleasant male with a history of longstanding hypertension, diabetes, end-stage renal disease, hyperlipidemia, BPH, was admitted with nausea, abdominal discomfort and decreased p.o. intake. The patient underwent EGD consistent with gastritis and duodenitis and hiatal hernia and subsequently the patient underwent colonoscopy today consisted with both internal and external hemorrhoids and also diffuse diverticular disease. The patient is feeling better, not in acute distress. Denies any headache. The patient does complain of tremors today. Denies any dizziness. PHYSICAL EXAMINATION: VITAL SIGNS: This afternoon as follows; blood pressure 153/54, pulse 57, respirations 12, temperature 97.5, saturation 100%. Height 6 feet 1 inch weight is 205 pounds. GENERAL: Mr. Richards is a 72 years old elderly male, moderately built, moderately nourished, not in acute distress. HEENT: Pupils normal, reactive to light and accommodation. Conjunctiva pink. Sclerae anicteric. Tongue is moist. Trachea is midline. LUNGS: Symmetric on both sides. Bilateral breath sounds present. Clear on auscultation. CVS: [place] at the fifth intercostal space, midclavicular line. S1 and S2 audible. No murmur or gallop. ABDOMEN: Normal in appearance, soft, tympanic. No guarding, no rigidity. No hepatosplenomegaly. 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 Nonfocal neuro examination. Cranial nerves II through XII grossly intact. Sensory and motor system is within normal limits. EXTREMITIES: No cyanosis, no clubbing, no edema on the right leg. The patient has BKA on the left leg and also has tremors in both upper extremities today. MEDICATIONS: As follows; hydralazine 50 mg p.o. q. 8 hours, aspirin 81 mg daily, Crestor 5 mg daily, Flagyl 500 mg q. 8 hours, Mucinex 500 mg p.o. b.i.d., Nephro-Benoit 1 tablet daily, NovoLog insulin per sliding scale, Procrit 10,000 units three times a week, Proscar 5 mg daily, Protonix 40 mg IV daily, Reglan 5 mg IV piggyback q. 6 hours on hold, Renvela 2.4 mg p.o. t.i.d., Senokot 2 tablets p.o. at bedtime, metoprolol 50 mg p.o. daily, Tylenol and Zemplar 2 mcg three times a week. LABORATORY DATA: Include as follows as of 12/26/2017; WBC 6.8, hemoglobin 10.6, hematocrit is 31.8, platelets 180. Sodium 134, potassium 4.7, chloride 91, CO2 29, BUN 37, creatinine 9.2, glucose 105, calcium 7.8, total bili 0.9, AST 41, ALT 24, alkaline phosphatase 76, total protein 7.7, albumin 3.6. Stool culture negative for Salmonella, Shigella and Campylobacter. Blood culture x2 negative day 4 x2 as of 12/22/2017. ASSESSMENT: In summary, Mr. Richards is a 72 years old elderly male with hypertension, diabetes, hyperlipidemia, benign prostatic hypertrophy, end-stage renal disease, status post left below knee amputation, cardiac arrest status post pacemaker placement with diverticulosis was admitted with nausea, abdominal discomfort and left lower quadrant pain, decreased p.o. intake for almost 1 week. 1. End-stage renal disease. Continue hemodialysis three times a week Tuesday, , Tuesday. 2. Hypertension. Blood pressure stable. 3. Diverticulosis. 4. Secondary hyperparathyroidism. PLAN: Continue Renvela and Zemplar. We will follow with you. Thank you for allowing me to participate in your patient's care. Blanca Thakkar MD
[2017-12-27] MEDS: (Novolog) Insulin Aspart, Recombinant 100 u/ml 10 ml vial SC SCH ×4 (07:45→22:04)
[2017-12-27] MEDS: Epoetin Alfa 10,000 unit/ml Dialysis IV SCH (11:35)
--- NOTE | 2017-12-27 12:01 | CP.PCM.PN ---
Subjective - Date & Time of Evaluation Date of Evaluation: 12/27/17 Time of Evaluation: 12:01 - Subjective Subjective: pt is seen and examined, during hd, uf gaol is 2.2 lit follow up consult is dictated #[id number] Objective - Vital Signs/Intake and Output Vital Signs (last 24 hours): Temp Pulse Resp BP Pulse Ox 98.2 F 63 18 148/78 98 12/27/17 09:20 12/27/17 09:20 12/27/17 09:20 12/27/17 11:30 12/27/17 07:00 Intake and Output: 12/27/17 12/27/17 06:59 18:59 Intake Total 560 Balance 560 - Medications Medications: Current Medications Acetaminophen (Tylenol 325mg Tab) 650 mg PO Q6 PRN PRN Reason: Pain, moderate (4-7) Aspirin (Aspirin Chewable) 81 mg PO DAILY [facility] Last Admin: 12/26/17 14:02 Dose: 81 mg Epoetin Omi (Procrit) 10,000 unit IV TTS [facility] Stop: 01/03/18 10:01 Last Admin: 12/27/17 11:35 Dose: 10,000 unit Finasteride (Proscar) 5 mg PO HS [facility] Last Admin: 12/26/17 21:46 Dose: 5 mg Guaifenesin (Mucinex La) 600 mg PO BID [facility] Last Admin: 12/26/17 17:00 Dose: 600 mg Hydralazine HCl (Apresoline) 50 mg PO Q8 [facility] Last Admin: 12/27/17 05:48 Dose: 50 mg Metronidazole (Flagyl) 500 mg in 100 mls @ 100 mls/hr IVPB Q8H [facility] Last Admin: 12/27/17 00:08 Dose: 100 mls/hr Insulin Aspart (Novolog) 0 unit SC ACHS [facility] PRN Reason: Protocol Last Admin: 12/27/17 07:45 Dose: Not Given Metoclopramide HCl (Reglan) 5 mg IVP Q6H [facility] Last Admin: 12/26/17 13:15 Dose: 5 mg Metoprolol Succinate (Toprol Xl) 50 mg PO DAILY [facility] Last Admin: 12/26/17 14:01 Dose: 50 mg Pantoprazole Sodium (Protonix Inj) 40 mg IVP DAILY [facility] Last Admin: 12/26/17 14:01 Dose: 40 mg Paricalcitol (Zemplar) 2 mcg IV TTS [facility] Last Admin: 12/24/17 15:25 Dose: 2 mcg Rosuvastatin Calcium (Crestor) 5 mg PO HS [facility] Last Admin: 12/26/17 21:46 Dose: 5 mg Senna/Docusate Sodium (Senokot S 50 Mg-8.6 Mg) 2 tab PO HS [facility] Last Admin: 12/26/17 21:46 Dose: 2 tab Sevelamer Carbonate (Renvela) 2.4 gm PO TIDCC [facility] Last Admin: 12/26/17 17:00 Dose: 2.4 gm Vitamin B Complex/Vit C/Folic Acid (Nephro-Benoit) 1 tab PO DAILY [facility] Last Admin: 12/26/17 14:06 Dose: 1 tab - Labs Labs: 12/26/17 09:59 12/27/17 10:08 PT 11.3 SECONDS (9.7-12.2) 12/22/17 03:18 INR 1.0 12/22/17 03:18 APTT 44 SECONDS (21-34) H 12/22/17 03:18
[2017-12-27] MEDS ORDERED: DiphenhydrAMINE 50 mg/ml Inj IM STA ×2 (12:06→14:35)
[2017-12-27] MEDS: Multivitamin Vitamin B Complex (Nephro-Vite) Tab PO SCH (14:43)
[2017-12-27] MEDS: Metoprolol Succinate 50 mg XL Tab PO SCH (14:44)
[2017-12-27] MEDS: Sevelamer Carb 2.4 gm/Packet PO SCH ×4 (14:44→17:50)
[2017-12-27] MEDS: guaiFENesin 600 mg ER Tab PO SCH ×2 (14:54→18:05)
[2017-12-27] MEDS: Docusate-Senna 50 mg-8.6 mg Tab PO SCH (22:02)
--- NOTE | 2017-12-27 23:05 | CP.PCM.PN ---
Subjective - Date & Time of Evaluation Date of Evaluation: 12/27/17 Time of Evaluation: 18:35 - Subjective Subjective: Pt seen and examined, he is having side effets of Reglan , extrapyramidal tremors on UE which didnot respond to benadryl pt is for neuroconsult Objective - Vital Signs/Intake and Output Vital Signs (last 24 hours): Temp Pulse Resp BP Pulse Ox 98.8 F 74 20 156/70 H 94 L 12/27/17 16:10 12/27/17 16:10 12/27/17 16:10 12/27/17 16:10 12/27/17 16:10 Intake and Output: 12/27/17 12/28/17 18:59 06:59 Intake Total 400 350 Balance 400 350 - Medications Medications: Current Medications Acetaminophen (Tylenol 325mg Tab) 650 mg PO Q6 PRN PRN Reason: Pain, moderate (4-7) Aspirin (Aspirin Chewable) 81 mg PO DAILY [facility] Last Admin: 12/27/17 14:44 Dose: 81 mg Clonazepam (Klonopin) 0.5 mg PO BID [facility] Last Admin: 12/27/17 18:06 Dose: 0.5 mg Epoetin Omi (Procrit) 10,000 unit IV TTS [facility] Stop: 01/03/18 10:01 Last Admin: 12/27/17 11:35 Dose: 10,000 unit Finasteride (Proscar) 5 mg PO HS [facility] Last Admin: 12/27/17 21:59 Dose: 5 mg Guaifenesin (Mucinex La) 600 mg PO BID [facility] Last Admin: 12/27/17 18:05 Dose: 600 mg Hydralazine HCl (Apresoline) 50 mg PO Q8 [facility] Last Admin: 12/27/17 22:00 Dose: 50 mg Metronidazole (Flagyl) 500 mg in 100 mls @ 100 mls/hr IVPB Q8H [facility] Last Admin: 12/27/17 17:50 Dose: 100 mls/hr Insulin Aspart (Novolog) 0 unit SC ACHS [facility] PRN Reason: Protocol Last Admin: 12/27/17 22:04 Dose: Not Given Metoprolol Succinate (Toprol Xl) 50 mg PO DAILY [facility] Last Admin: 12/27/17 14:44 Dose: 50 mg Pantoprazole Sodium (Protonix Ec Tab) 20 mg PO DAILY [facility] Paricalcitol (Zemplar) 2 mcg IV TTS [facility] Last Admin: 12/24/17 15:25 Dose: 2 mcg Rosuvastatin Calcium (Crestor) 5 mg PO HS [facility] Last Admin: 12/27/17 22:01 Dose: 5 mg Senna/Docusate Sodium (Senokot S 50 Mg-8.6 Mg) 2 tab PO HS [facility] Last Admin: 12/27/17 22:02 Dose: 2 tab Sevelamer Carbonate (Renvela) 2.4 gm PO TIDCC [facility] Last Admin: 12/27/17 17:50 Dose: 2.4 gm Vitamin B Complex/Vit C/Folic Acid (Nephro-Benoit) 1 tab PO DAILY [facility] Last Admin: 12/27/17 14:43 Dose: 1 tab - Labs Labs: 12/26/17 09:59 12/27/17 13:09 PT 11.3 SECONDS (9.7-12.2) 12/22/17 03:18 INR 1.0 12/22/17 03:18 APTT 44 SECONDS (21-34) H 12/22/17 03:18 - Constitutional Appears: No Acute Distress, Chronically Ill - Head Exam Head Exam: ATRAUMATIC, NORMAL INSPECTION, NORMOCEPHALIC - Eye Exam Eye Exam: EOMI, Normal appearance, PERRL Pupil Exam: NORMAL ACCOMODATION, PERRL - Respiratory Exam Respiratory Exam: Decreased Breath Sounds, Rales, Rhonchi - Cardiovascular Exam Cardiovascular Exam: REGULAR RHYTHM, +S1, +S2. absent: Murmur - GI/Abdominal Exam GI & Abdominal Exam: Soft, Normal Bowel Sounds. absent: Tenderness - Rectal Exam Rectal Exam: Deferred Assessment and Plan (1) Abdominal pain Status: Acute (2) Diverticulitis Status: Acute (3) End stage renal disease Status: Chronic (4) Diabetes Status: Chronic (5) Hypertension Status: Chronic
[2017-12-28] MEDS: metroNIDAZOLE IV 500 mg/100 ml 500 MG/100 ML BAG IVPB SCH ×3 (02:12→18:01)
--- NOTE | 2017-12-28 02:21 | PN ---
DATE: 12/27/2017 FOLLOWUP RENAL CONSULTATION LOCATION: The patient is located in room #562, bed A. REQUESTED BY: Emilio Israel MD. REASON FOR FOLLOWUP: End-stage renal disease, continuation with hemodialysis. SUBJECTIVE: Mr. Richards is a 72-year-old elderly male with a history of longstanding hypertension, diabetes, end-stage renal disease and diverticulosis, status post left BKA, was admitted with nausea, abdominal discomfort, decreased p.o. intake, status post EGD consistent with gastritis, duodenitis, and hiatal hernia. The patient underwent colonoscopy yesterday, found to have both internal and external hemorrhoids, and diffuse diverticulosis. The patient is feeling much better, but still complains of tremors today and slight dysarthria. Patient was seen and examined during dialysis and UF goal is about 2.2 liters. OBJECTIVE: VITAL SIGNS: His vital signs as follows, blood pressure 158/72, pulse 74, respirations about 20, temperature 98.8, saturation 94%. Height 6 feet 1 inch, weight is 205 pounds. GENERAL: Mr. Richards is 72-year-old elderly male, moderately-built, moderately nourished, not in distress. HEENT: Pupils normal, reactive to light and accommodation. Conjunctivae pink. Sclerae are anicteric. Tongue is moist. Trachea is midline. LUNGS: Symmetric on both sides. Bilateral breath sounds present. Clear on auscultation. CVS: [place] at the fifth intercostal space and midclavicular line. S1, S2 audible. No murmur or gallop. ABDOMEN: Normal in appearance, soft, tympanic. No guarding. No rigidity. No hepatosplenomegaly. 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 Nonfocal neurologic examination. Cranial nerves II through XII grossly intact. Sensory and motor system is within normal limits. EXTREMITIES: No cyanosis, no clubbing, no edema on the right leg, status post left BKA. The patient also has tremors in both upper extremities, flapping tremors. CURRENT MEDICATIONS: Include as follows, hydralazine 50 mg p.o. q.8h., aspirin 81 mg daily, Crestor 5 mg at bedtime, Flagyl 500 mg q.8h., Klonopin 0.5 mg p.o. b.i.d., Mucinex 600 mg p.o. b.i.d., Nephro-Benoit 1 tablet daily, Procrit 10,000 units 3 times a week, Proscar 5 mg at bedtime, Protonix 20 mg p.o. daily, Renvela 2.4 mg p.o. t.i.d., Senokot, Toprol-XL 50 mg p.o. daily, Tylenol, and Zemplar. LABORATORY DATA: No new labs are available. His other laboratory data post BUN is 15 and pre-BUN is 43. Accu-Cheks 123, 97. ASSESSMENT AND PLAN: Mr. Richards is 72-year-old elderly male with a history of longstanding hypertension, diabetes, end-stage renal disease, status post pacemaker placement, status post left below-knee amputation, was admitted with nausea, abdominal discomfort in the left lower quadrant and also decreased p.o. intake, status post esophagogastroduodenoscopy and colonoscopy and complains of flapping tremors yesterday and today. The patient is off Reglan. 1. End-stage renal disease. Continue hemodialysis three times a week; Tuesday, , and Tuesday. 2. Hypertension. Blood pressure is stable. 3. Diabetes. 4. Tremors, rule out secondary to Reglan and extrapyramidal symptoms. The patient is off Reglan. Consider Benadryl p.r.n. We will follow up with you. Thank you for allowing me to participate in your patient's care. Discussed with Dr. Emilio Israel in rounds this morning. Blanca Thakkar MD
[2017-12-28 07:53] VITALS: RESP 18; O2SAT 95
[2017-12-28] MEDS: (Novolog) Insulin Aspart, Recombinant 100 u/ml 10 ml vial SC SCH ×3 (08:11→18:02)
[2017-12-28] MEDS: Sevelamer Carb 2.4 gm/Packet PO SCH ×3 (08:11→18:02)
[2017-12-28] MEDS ORDERED: Pantoprazole 20 mg EC Tab PO SCH (10:00)
[2017-12-28] MEDS: Multivitamin Vitamin B Complex (Nephro-Vite) Tab PO SCH (10:02)
[2017-12-28] MEDS: guaiFENesin 600 mg ER Tab PO SCH ×2 (10:02→18:02)
[2017-12-28] MEDS: Metoprolol Succinate 50 mg XL Tab PO SCH (10:02)
--- NOTE | 2017-12-28 12:31 | PN ---
DATE: 12/28/2017. LOCATION: [facility], bed A. SUBJECTIVE: This is a 72 years old male seen and examined in rounds. The entire chart is reviewed including, but not limited to the most recent lab and radiology study results, current and previous medication list, current and previous medical events. No reported active bleeding and the patient is post upper and lower endoscopy. The entire is chart is reviewed and gastric mucosa pathology report was negative for helicobacter pylori. LABORATORY DATA: Today's lab results show blood glucose level of 190. Rest of the lab is still pending. PHYSICAL EXAMINATION: GENERAL: A 72 years old male, awake, alert and oriented. VITAL SIGNS: Afebrile with pulse of 70, respiratory rate 18 to 20 and blood pressure 162/70. HEENT: Showed pale, dry oral mucous membranes. Nonicteric sclerae. LUNGS: Few scattered crepitations. Decreased air entry at bases. HEART: Positive S1 and S2. ABDOMEN: Soft. Bowel sounds are present. No mass or organomegaly. No rebound tenderness or guarding. EXTREMITIES: Showed lower extremities with mild edematous changes. No clubbing or cyanosis. NEUROLOGIC: No reported new neurological deficits, sensory or motor. No focal deficits reported. Peripheral pulses are present bilaterally. IMPRESSION: 1. Peptic ulcer disease. 2. Known history of hypertension, hyperlipidemia, cardiac arrhythmia with status post pacemaker insertion. 3. Chronic renal failure on hemodialysis. 4. Anemia, most likely secondary to above. 5. Nonbleeding internal hemorrhoids, diffuse diverticulosis, which could be a major factor for the patient's diarrhea. SUGGESTIONS: 1. Continue current management. 2. High fiber diet. 3. Further recommendations to follow. Frank Chamorro MD
--- NOTE | 2017-12-28 12:42 | CP.PCM.PN ---
Subjective - Date & Time of Evaluation Date of Evaluation: 12/28/17 Time of Evaluation: 12:42 - Subjective Subjective: pt is seen and examined, follow up consult is dictated #[id number] Objective - Vital Signs/Intake and Output Vital Signs (last 24 hours): Temp Pulse Resp BP Pulse Ox 96.6 F L 68 18 166/72 H 95 12/28/17 07:00 12/28/17 10:02 12/28/17 07:00 12/28/17 10:02 12/28/17 07:00 Intake and Output: 12/28/17 12/28/17 06:59 18:59 Intake Total 700 Balance 700 - Medications Medications: Current Medications Acetaminophen (Tylenol 325mg Tab) 650 mg PO Q6 PRN PRN Reason: Pain, moderate (4-7) Aspirin (Aspirin Chewable) 81 mg PO DAILY [facility] Last Admin: 12/28/17 10:02 Dose: 81 mg Clonazepam (Klonopin) 0.5 mg PO BID [facility] Last Admin: 12/28/17 10:02 Dose: 0.5 mg Epoetin Omi (Procrit) 10,000 unit IV TTS [facility] Stop: 01/03/18 10:01 Last Admin: 12/27/17 11:35 Dose: 10,000 unit Finasteride (Proscar) 5 mg PO HS [facility] Last Admin: 12/27/17 21:59 Dose: 5 mg Guaifenesin (Mucinex La) 600 mg PO BID [facility] Last Admin: 12/28/17 10:02 Dose: 600 mg Hydralazine HCl (Apresoline) 50 mg PO Q8 [facility] Last Admin: 12/28/17 05:47 Dose: 50 mg Metronidazole (Flagyl) 500 mg in 100 mls @ 100 mls/hr IVPB Q8H [facility] Last Admin: 12/28/17 08:10 Dose: 100 mls/hr Insulin Aspart (Novolog) 0 unit SC ACHS [facility] PRN Reason: Protocol Last Admin: 12/28/17 12:13 Dose: 1 unit Metoprolol Succinate (Toprol Xl) 50 mg PO DAILY [facility] Last Admin: 12/28/17 10:02 Dose: 50 mg Pantoprazole Sodium (Protonix Ec Tab) 20 mg PO DAILY [facility] Last Admin: 12/28/17 10:02 Dose: 20 mg Paricalcitol (Zemplar) 2 mcg IV TTS [facility] Last Admin: 12/24/17 15:25 Dose: 2 mcg Rosuvastatin Calcium (Crestor) 5 mg PO HS [facility] Last Admin: 12/27/17 22:01 Dose: 5 mg Senna/Docusate Sodium (Senokot S 50 Mg-8.6 Mg) 2 tab PO HS [facility] Last Admin: 12/27/17 22:02 Dose: 2 tab Sevelamer Carbonate (Renvela) 2.4 gm PO TIDCC [facility] Last Admin: 12/28/17 12:13 Dose: 2.4 gm Vitamin B Complex/Vit C/Folic Acid (Nephro-Benoit) 1 tab PO DAILY [facility] Last Admin: 12/28/17 10:02 Dose: 1 tab - Labs Labs: 12/26/17 09:59 12/27/17 13:09 PT 11.3 SECONDS (9.7-12.2) 12/22/17 03:18 INR 1.0 12/22/17 03:18 APTT 44 SECONDS (21-34) H 12/22/17 03:18
--- NOTE | 2017-12-28 14:33 | CP.PCM.CON ---
History of Present Illness - History of Present Illness History of Present Illness: Neurology consult note 72 year old male with past medical history of DM, ESRD on HD T,Th, S, HTN, HLD, PUD, cardiac arrest with pacemaker in place was admitted to hospital for intractable abdominal pain, nausea and vomiting. Neurology is consulted due to tremors. On admission patient was started on Reglan 10 mg q6 for the intractable nausea and vomiting. Two days ago, patient began to complain of stuttering which he said was going on for about 4-5 days. Patient denied having any tremors in his body. Patient denied having any speech problems in the past. Patient received Benadryl IV yesterday and since then he states that his speech has improved. Currently, patient denies having any speech impairment , any tremors in extremities, any BARON or vision changes. 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 Denies ETOH or drug use. NKDA Review of Systems - Constitutional Constitutional: absent: Chills, Fever - EENT Eyes: absent: Change in Vision, Diplopia, Exophthalmos, Loss of Vision Nose/Mouth/Throat: absent: Nasal Discharge, Dysphagia, Lip Swelling, Throat Swelling, Tongue Swelling - Cardiovascular Cardiovascular: absent: Chest Pain, Dyspnea, Pedal Edema - Respiratory Respiratory: absent: Cough, Wheezing, Snoring - Gastrointestinal Gastrointestinal: absent: Abdominal Pain, Constipation, Diarrhea, Nausea, Vomiting - Genitourinary Genitourinary: absent: Dysuria, Hematuria - Musculoskeletal Musculoskeletal: absent: Back Pain, Neck Pain - Integumentary Integumentary: absent: Acne, Lesions, Rash - Neurological Neurological: Abnormal Speech. absent: Abnormal Gait, Abnormal Hearing, Behavioral Changes, Confusion, Convulsions, Dizziness, Numbness, Headaches, Lack of Coordination, Loss of Vision, Tremor, Weakness - Psychiatric Psychiatric: absent: Anxiety, Depression - Endocrine Endocrine: absent: Fatigue, Flushing Past Patient History - Infectious Disease Hx of Infectious Diseases: None - Past Medical History & Family History Past Medical History?: Yes - Past Social History Smoking Status: Light Smoker < 10 Cigarettes Daily Chewing Tobacco Use: No Cigar Use: No Alcohol: None Drugs: Denies - CARDIAC Hx Cardiac Disorders: Yes (Pacemaker) Hx Hypercholesterolemia: Yes Hx Hypertension: Yes - PULMONARY Other/Comment: light smoker - NEUROLOGICAL Hx Neurological Disorder: No - HEENT Hx HEENT Problems: Yes Other/Comment: left eye vision problems - RENAL Hx Renal Failure: Yes (esrd, hd, ckd) - ENDOCRINE/METABOLIC Hx Diabetes Mellitus Type 2: Yes - HEMATOLOGICAL/ONCOLOGICAL Hx Blood Disorders: No - INTEGUMENTARY Hx Dermatological Problems: No - MUSCULOSKELETAL/RHEUMATOLOGICAL Hx Musculoskeletal Disorders: Yes Hx Falls: Yes Other/Comment: left leg prosthesis - GASTROINTESTINAL Hx Gastrointestinal Disorders: Yes Hx Nausea: Yes - GENITOURINARY/GYNECOLOGICAL Hx Genitourinary Disorders: No - PSYCHIATRIC Hx Substance Use: No - SURGICAL HISTORY Hx Surgeries: Yes Hx Amputation: Yes (left bka with prosthesis) Hx Angiogram: Yes Hx Herniorrhaphy: Yes Hx Vascular Access Device: Yes - ANESTHESIA Hx Anesthesia: Yes Hx Anesthesia Reactions: No Hx Malignant Hyperthermia: No Has any member of the family had a problem w/ anesthesia?: No Meds Home Medications: Home Medication List Medication Instructions Recorded Confirmed Type Metoprolol Succinate [Toprol XL] 50 mg PO DAILY #30 tab 12/26/17 Rx Allergies/Adverse Reactions: Allergies Allergy/AdvReac Type Severity Reaction Status Date / Time No Known Allergies Allergy Verified 12/22/17 02:18 - Medications Medications: Current Medications Acetaminophen (Tylenol 325mg Tab) 650 mg PO Q6 PRN PRN Reason: Pain, moderate (4-7) Aspirin (Aspirin Chewable) 81 mg PO DAILY [facility] Last Admin: 12/28/17 10:02 Dose: 81 mg Clonazepam (Klonopin) 0.5 mg PO BID [facility] Last Admin: 12/28/17 10:02 Dose: 0.5 mg Epoetin Omi (Procrit) 10,000 unit IV TTS [facility] Stop: 01/03/18 10:01 Last Admin: 12/27/17 11:35 Dose: 10,000 unit Finasteride (Proscar) 5 mg PO HS [facility] Last Admin: 12/27/17 21:59 Dose: 5 mg Guaifenesin (Mucinex La) 600 mg PO BID [facility] Last Admin: 12/28/17 10:02 Dose: 600 mg Hydralazine HCl (Apresoline) 50 mg PO Q8 [facility] Last Admin: 12/28/17 14:10 Dose: 50 mg Metronidazole (Flagyl) 500 mg in 100 mls @ 100 mls/hr IVPB Q8H [facility] Last Admin: 12/28/17 08:10 Dose: 100 mls/hr Insulin Aspart (Novolog) 0 unit SC ACHS [facility] PRN Reason: Protocol Last Admin: 12/28/17 12:13 Dose: 1 unit Metoprolol Succinate (Toprol Xl) 50 mg PO DAILY [facility] Last Admin: 12/28/17 10:02 Dose: 50 mg Pantoprazole Sodium (Protonix Ec Tab) 20 mg PO DAILY [facility] Last Admin: 12/28/17 10:02 Dose: 20 mg Paricalcitol (Zemplar) 2 mcg IV TTS [facility] Last Admin: 12/24/17 15:25 Dose: 2 mcg Rosuvastatin Calcium (Crestor) 5 mg PO HS [facility] Last Admin: 12/27/17 22:01 Dose: 5 mg Senna/Docusate Sodium (Senokot S 50 Mg-8.6 Mg) 2 tab PO HS [facility] Last Admin: 12/27/17 22:02 Dose: 2 tab Sevelamer Carbonate (Renvela) 2.4 gm PO TIDCC [facility] Last Admin: 12/28/17 12:13 Dose: 2.4 gm Vitamin B Complex/Vit C/Folic Acid (Nephro-Benoit) 1 tab PO DAILY [facility] Last Admin: 12/28/17 10:02 Dose: 1 tab Physical Exam - Constitutional Appears: Non-toxic, No Acute Distress - Head Exam Head Exam: ATRAUMATIC - Eye Exam Eye Exam: EOMI. absent: Normal appearance, Nystagmus Pupil Exam: PERRL - ENT Exam ENT Exam: Mucous Membranes Moist - Respiratory Exam Respiratory Exam: Clear to Auscultation Bilateral. absent: Accessory Muscle Use , Rales, Rhonchi, Wheezes, Respiratory Distress - Cardiovascular Exam Cardiovascular Exam: REGULAR RHYTHM, +S1, +S2. absent: Diastolic murmur, Gallop , Rubs, Systolic Murmur - GI/Abdominal Exam GI & Abdominal Exam: Normal Bowel Sounds, Soft. absent: Distended, Firm, Tenderness - Extremities Exam Extremities exam: Negative for: pedal edema, tenderness - Neurological Exam Neurological exam: Alert, CN II-XII Intact, Oriented x3, Reflexes Normal Additional comments: speech normal. No tremors in upper and lower extremities. Normal coordination - Psychiatric Exam Psychiatric exam: Normal Affect, Normal Mood - Skin Skin Exam: Dry, Intact, Normal Color, Warm Results - Vital Signs Recent Vital Signs: Last Vital Signs Temp 96.6 F L 12/28/17 07:00 Pulse 68 12/28/17 10:02 Resp 18 12/28/17 07:00 BP 165/70 H 12/28/17 14:09 Pulse Ox 95 12/28/17 07:00 - Labs Result Diagrams: 12/26/17 09:59 12/27/17 13:09 Labs: Laboratory Results - last 24 hr 12/27/17 12/27/17 12/28/17 16:46 21:47 06:28 POC Glucose (mg/dL) 227 H 131 H 190 H 12/28/17 11:54 POC Glucose (mg/dL) 171 H Assessment & Plan - Assessment and Plan (Free Text) Assessment: 72 year old male with past medical history of DM, ESRD on HD, HTN, HLD, PUD is being seen for stuttering of speech. Stuttering of speech is likely due to extraparymidal side effects of Reglan. Extrapyramidal side effects of Reglan - Patient received 2 dose of 25 mg Benadryl IV yesterday. This morning, patient 's speech has returned to baseline. - Will avoid Reglan in future - Patient is cleared from neurology stand point to be discharged Case discussed with attending, Dr. Conrad - Date & Time Date: 12/28/17 Time: 14:36
[2017-12-28 16:47] VITALS: BP 170/65; PULSE 65; TEMP 97.8
--- NOTE | 2017-12-28 21:59 | CP.PCM.DIS ---
Provider - Provider Date of Admission: 12/22/17 05:38 Attending physician: Emilio Israel MD Time Spent in preparation of Discharge (in minutes): 34 Diagnosis - Discharge Diagnosis (1) Abdominal pain Status: Acute (2) Diverticulitis Status: Acute (3) End stage renal disease Status: Chronic (4) Diabetes Status: Chronic (5) Hypertension Status: Chronic Priority: Low Hospital Course - Lab Results Lab Results: Micro Results 12/22/17 02:45 Blood Blood Culture - Final NO GROWTH AFTER 5 DAYS 12/22/17 02:45 Blood Gram Stain - Final TEST NOT PERFORMED 12/22/17 03:15 Blood Blood Culture - Final NO GROWTH AFTER 5 DAYS 12/22/17 03:15 Blood Gram Stain - Final TEST NOT PERFORMED 12/23/17 Unknown Stool Stool Culture - Final NO SALMONELLA, SHIGELLA OR CAMPYLOBACTER ISOLATED. Most Recent Lab Values WBC 6.8 K/uL (4.8-10.8) 12/26/17 09:59 RBC 3.29 Mil/uL (4.40-5.90) L 12/26/17 09:59 Hgb 10.6 g/dL (12.0-18.0) L 12/26/17 09:59 Hct 31.8 % (35.0-51.0) L 12/26/17 09:59 MCV 96.8 fL (80.0-94.0) H 12/26/17 09:59 MCH 32.1 pg (27.0-31.0) H 12/26/17 09:59 MCHC 33.2 g/dL (33.0-37.0) 12/26/17 09:59 RDW 16.0 % (11.5-14.5) H 12/26/17 09:59 Plt Count 180 K/uL (130-400) 12/26/17 09:59 MPV 8.9 fL (7.2-11.7) 12/26/17 09:59 Neut % (Auto) 68.1 % (50.0-75.0) 12/24/17 08:07 Lymph % (Auto) 15.3 % (20.0-40.0) L 12/24/17 08:07 Throckmorton % (Auto) 13.5 % (0.0-10.0) H 12/24/17 08:07 Eos % (Auto) 2.7 % (0.0-4.0) 12/24/17 08:07 Baso % (Auto) 0.4 % (0.0-2.0) 12/24/17 08:07 Neut # (Auto) 4.5 K/uL (1.8-7.0) 12/24/17 08:07 Lymph # (Auto) 1.0 K/uL (1.0-4.3) 12/24/17 08:07 Throckmorton # (Auto) 0.9 K/uL (0.0-0.8) H 12/24/17 08:07 Eos # (Auto) 0.2 K/uL (0.0-0.7) 12/24/17 08:07 Baso # (Auto) 0.0 K/uL (0.0-0.2) 12/24/17 08:07 PT 11.3 SECONDS (9.7-12.2) 12/22/17 03:18 INR 1.0 12/22/17 03:18 APTT 44 SECONDS (21-34) H 12/22/17 03:18 Sodium 134 mmol/L (132-148) 12/26/17 09:59 Potassium 4.7 mmol/L (3.6-5.2) 12/26/17 09:59 Chloride 91 mmol/L (98-107) L 12/26/17 09:59 Carbon Dioxide 29 mmol/L (22-30) 12/26/17 09:59 Anion Gap 19 (10-20) 12/26/17 09:59 BUN 15 mg/dL (9-20) 12/27/17 13:09 Creatinine 9.2 mg/dL (0.8-1.5) H* 12/26/17 09:59 Est GFR ( Amer) 7 12/26/17 09:59 Est GFR (Non-Af Amer) 6 12/26/17 09:59 POC Glucose (mg/dL) 140 mg/dL (65-110) H 12/28/17 16:17 Random Glucose 105 mg/dL (75-110) 12/26/17 09:59 Calcium 7.8 mg/dl (8.6-10.4) L 12/26/17 09:59 Total Bilirubin 0.9 mg/dL (0.2-1.3) 12/26/17 09:59 AST 41 U/L (17-59) 12/26/17 09:59 ALT 24 U/L (21-72) 12/26/17 09:59 Alkaline Phosphatase 76 U/L (38-126) 12/26/17 09:59 Total Protein 7.7 g/dL (6.3-8.3) 12/26/17 09:59 Albumin 3.6 g/dL (3.5-5.0) 12/26/17 09:59 Globulin 4.1 gm/dL (2.2-3.9) H 12/26/17 09:59 Albumin/Globulin Ratio 0.9 (1.0-2.1) L 12/26/17 09:59 Amylase 97 U/L (30-110) 12/22/17 06:48 Lipase 94 U/L (23-300) 12/22/17 03:18 Carcinoembryonic Ag 6.9 ng/mL (0-3.0) H 12/22/17 03:18 CA 19-9 Antigen 48.9 U/mL (0-37) H 12/22/17 19:36 Stool Leukocytes, Qual Negative (NEGATIVE) 12/22/17 Unknown - Hospital Course Hospital Course: Assessment: 72 year old male with past medical history of DM, ESRD on HD, HTN, HLD, PUD is being seen for stuttering of speech. Stuttering of speech is likely due to extraparymidal side effects of Reglan. Extrapyramidal side effects of Reglan - Patient received 2 dose of 25 mg Benadryl IV yesterday. This morning, patient 's speech has returned to baseline. - Will avoid Reglan in future - Patient is cleared from neurology stand point to be discharged Discharge Exam - Head Exam Head Exam: ATRAUMATIC, NORMAL INSPECTION, NORMOCEPHALIC - Eye Exam Eye Exam: EOMI, Normal appearance, PERRL Pupil Exam: NORMAL ACCOMODATION, PERRL - ENT Exam ENT Exam: Mucous Membranes Moist - Respiratory Exam Respiratory Exam: Decreased Breath Sounds, Rales, Rhonchi - Cardiovascular Exam Cardiovascular Exam: REGULAR RHYTHM, +S1, +S2 - GI/Abdominal Exam GI & Abdominal Exam: Normal Bowel Sounds - Rectal Exam Rectal Exam: Deferred Discharge Plan - Discharge Medications Prescriptions: Metoprolol Succinate [Toprol XL] 50 mg PO DAILY #30 tab - Follow Up Plan Condition: FAIR Disposition: HOME/ ROUTINE Instructions: Diverticulitis (DC), Acute Abdomen (Belly Pain), Adult (DC), Metoprolol, End Stage Kidney Disease (DC), Dialysis and Diet Additional Instructions: -FOLLOW UP WITH DR. ISRAEL IN THE OFFICE WITHIN 5-7 DAYS AFTER DISCHARGE--- CALL THE OFFICE TOMORROW MORNING AND MAKE YOUR APPOINTMENT. -FOLLOW UP WITH DR. LAW (STOMACH DOCTOR) WITHIN 7-10 DAYS AFTER DISCHARGE--- CALL THE OFFICE TOMORROW MORNING AND MAKE YOUR APPOINTMENT. -CONTINUE MEDICATIONS AT HOME. -STOP TAKING SOTALOL. INSTEAD, YOU HAVE BEEN PRESCRIBED: 1) TOPROL XL 50 MG (TAKE ONE TABLET) ONCE A DAY. -IF YOU HAVE ANY FURTHER QUESTIONS OR CONCERNS, CONTACT DR. ISRAEL'S OFFICE. Referrals: Frank Law [Staff Provider] - Blanca Thakkar MD [Staff Provider] - Emilio Israel MD [Staff Provider] -
--- NOTE | 2017-12-29 06:11 | PN ---
DATE: 12/28/2017 LOCATION: The patient is located in room 562, bed A. REQUESTED BY: Emilio Israel MD REASON FOR FOLLOWUP: End-stage renal disease, condition on hemodialysis. SUBJECTIVE: Mr. Richards is a 72-year-old elderly male with history of longstanding hypertension, diabetes, end-stage renal disease, BPH, hyperlipidemia, status post left BKA, was admitted with chief complaint of nausea and abdominal discomfort, status post EGD consistent with gastritis and duodenitis, hiatal hernia, status post colonoscopy consistent with internal and external hemorrhoids, and also diverticulosis. The patient is feeling much better today. No tremors and no dysarthria. The patient is off Reglan and status post on Benadryl. No chest pain or palpitation. No fever. No cough. No abdominal pain. No nausea, vomiting, or diarrhea. The patient is eager to go home. PHYSICAL EXAMINATION: VITAL SIGNS: As follows: Blood pressure 166/72, pulse 68, respirations 18, temperature 96.6, saturation 95%. Height 6 feet 1 inch, weight is 205 pounds. GENERAL: Mr. Richards is a 72-year-old elderly male, moderately built, moderately nourished, not in distress. HEENT: Normal and reactive to light and accommodation. Conjunctivae pink. Sclerae anicteric. Tongue is moist. Trachea is midline. LUNGS: Symmetric on both sides. Bilateral breath sounds present. Clear on auscultation. CVS: Trimble at the fifth intercostal space, midclavicular line. S1, S2 audible. No murmur or gallop. ABDOMEN: Normal in appearance, soft, tympanic. No guarding. No rigidity. No hepatosplenomegaly. LAUNDRY AGENT: The patient is alert, awake, oriented x3. Nonfocal neuro examination. Cranial nerves II through XII grossly intact. Sensory and motor system is within normal limits. EXTREMITIES: No cyanosis, no clubbing, no edema, status post left BKA. CURRENT MEDICATIONS: Include as follows: Tylenol 650 mg p.o. q.6 hours p.r.n., hydralazine 50 mg p.o. q.8 hours, Nephro-Benoit 1 tablet daily, Renvela 2.4 gm p.o. t.i.d., Crestor 5 mg at bedtime, Zemplar 2 mcg 3 times a week, Proscar 5 mg p.o. at bedtime, Pepcid 20 mg p.o. daily, Epogen 20,000 units 3 times a week, aspirin 81 mg daily, Percocet 1 tablet p.o. q.i.d., metoprolol 50 mg p.o. daily. No new labs are available. Accu-Cheks 190, 171. ASSESSMENT AND PLAN: In summary, Mr. Richards is a 72-year-old elderly male with a history of hypertension, diabetes, end-stage renal disease, hyperlipidemia, benign prostatic hypertrophy, status post pacemaker placement, was admitted with nausea and abdominal discomfort, decreased p.o. intake, and found to have internal and external hemorrhoids with diffuse diverticulosis. 1. End-stage renal disease. Continue hemodialysis three times a week Tuesday, , Tuesday. 2. Hypertension. Blood pressure stable. 3. Diverticulosis. 4. Secondary hyperparathyroidism. Continue Zemplar, continue Procrit. Continue Renvela. We will follow with you. Thank you for allowing me to participate in your patient's care. Blanca Thakakr MD
== END 2017-12-28 19:50 | disposition home or self-care (01) | DRG 391 ==
LOC: C.ER 01:30 → C.9E 05:38 → C.5S 07:53
PROVIDERS: ADMIT Internal Medicine; ATTEND Internal Medicine
PROC: 0DB78ZX Excision of Stomach, Pylorus, Via Natural or Artificial Opening Endoscopic, Diagnostic (ICD-10-PCS; 2017-12-23)
PROC: 0DBM8ZX Excision of Descending Colon, Via Natural or Artificial Opening Endoscopic, Diagnostic (ICD-10-PCS; principal; 2017-12-26 10:30)
DX: K57.32 Diverticulitis of large intestine without perforation or abscess without bleeding (principal); N18.6 End stage renal disease; E11.22 Type 2 diabetes mellitus with diabetic chronic kidney disease; E87.5 Hyperkalemia; I12.0 Hypertensive chronic kidney disease with stage 5 chronic kidney disease or end stage renal disease; N25.81 Secondary hyperparathyroidism of renal origin; E78.00 Pure hypercholesterolemia, unspecified; E78.5 Hyperlipidemia, unspecified; F17.210 Nicotine dependence, cigarettes, uncomplicated; K27.9 Peptic ulcer, site unspecified, unspecified as acute or chronic, without hemorrhage or perforation; K29.70 Gastritis, unspecified, without bleeding; K29.80 Duodenitis without bleeding; K44.9 Diaphragmatic hernia without obstruction or gangrene; K64.4 Residual hemorrhoidal skin tags; K64.8 Other hemorrhoids; N40.0 Benign prostatic hyperplasia without lower urinary tract symptoms; Z86.74 Personal history of sudden cardiac arrest; Z89.512 Acquired absence of left leg below knee; Z95.810 Presence of automatic (implantable) cardiac defibrillator; Z99.2 Dependence on renal dialysis; D64.9 Anemia, unspecified; G25.1 Drug-induced tremor; T45.0X5A Adverse effect of antiallergic and antiemetic drugs, initial encounter

== ENCOUNTER 2018-01-03 10:20 | Inpatient (IN) | payer MEDICARE, BC ==
[2018-01-03 10:20] VITALS: BMI 21.1
--- NOTE | 2018-01-03 12:18 | C.PDOC ---
History Of Present Illness 72 y/o male, with PMhx of diverticulitis and kidney failure, c/o left-sided abdominal pain and decreased PO intake x 3 days. Pt had diarrhea yesterday and feels nauseous. Pt was discharged last week at [facility] for diverticulitis. Patient denies fever, chills,CP, and SOB. Time Seen by Provider: 01/03/18 11:41 Chief Complaint (Nursing): Abdominal Pain History Per: Patient History/Exam Limitations: no limitations Onset/Duration Of Symptoms: Days Current Symptoms Are (Timing): Still Present Severity: Moderate Past Medical History Reviewed: Historical Data, Nursing Documentation, Vital Signs Vital Signs: Last Vital Signs Temp 98.6 F 01/03/18 16:05 Pulse 85 01/03/18 17:02 Resp 16 01/03/18 17:02 BP 186/82 H 01/03/18 17:02 Pulse Ox 99 01/03/18 16:15 - Medical History PMH: HTN, Hypercholesterolemia, End Stage Renal Disease, Chronic Kidney Disease Surgical History: Pacemaker (12/17) - [facility] Procedures BYPASS LEFT POPLITEAL ARTERY TO FOOT ARTERY, OPEN APPROACH (12/27/15) DETACHMENT AT LEFT 2ND TOE, MID, OPEN APPROACH (12/27/15) DETACHMENT AT LEFT 5TH TOE, COMPLETE, OPEN APPROACH (12/27/15) DETACHMENT AT LEFT LOWER LEG, HIGH, OPEN APPROACH (12/13/16) DIALYSIS ARTERIOVENOSTOM (04/08/14) EXCISION OF DESCENDING COLON, ENDO, DIAGN (12/22/17) EXCISION OF LEFT FOOT SKIN, EXTERNAL APPROACH (12/27/15) EXCISION OF LEFT GREATER SAPHENOUS VEIN, OPEN APPROACH (12/27/15) EXCISION OF STOMACH, PYLORUS, ENDO, DIAGN (12/22/17) FLUOROSCOPY OF LEFT HEART USING LOW OSMOLAR CONTRAST (12/27/15) FLUOROSCOPY OF MULT COR ART USING L OSM CONTRAST (12/27/15) HEMODIALYSIS (04/08/14) INSERTION OF ENDOTRACHEAL AIRWAY INTO TRACHEA, VIA OPENING (12/13/16) INSERTION OF INFUSION DEV INTO SUP VENA CAVA, PERC APPROACH (12/27/15) INSERTION OF INFUSION DEVICE INTO R ATRIUM, PERC APPROACH (08/20/15) MEASURE OF CARDIAC SAMPL & PRESSURE, L HEART, PERC APPROACH (12/27/15) PERFORMANCE OF CARDIAC OUTPUT, SINGLE, MANUAL (12/13/16) PERFORMANCE OF URINARY FILTRATION, MULTIPLE (12/13/16) PLAIN RADIOGRAPHY OF AORTA, BI LE ART USING L OSM CONTRAST (12/27/15) RESPIRATORY VENTILATION, LESS THAN 24 CONSECUTIVE HOURS (12/13/16) TRANSFUSE NONAUT RED BLOOD CELLS IN PERIPH VEIN, PERC (12/27/15) ULTRASONOGRAPHY OF SUPERIOR VENA CAVA, GUIDANCE (12/27/15) VENOUS CATHETERIZATION FOR RENAL DIALYSIS (04/08/14) Family History: States: No Known Family Hx - Social History Hx Tobacco Use: Yes Hx Alcohol Use: No (former) Hx Substance Use: No - Immunization History Hx Tetanus Toxoid Vaccination: No Hx Influenza Vaccination: Yes Hx Pneumococcal Vaccination: Yes Review Of Systems Constitutional: Negative for: Fever, Chills Cardiovascular: Negative for: Chest Pain Respiratory: Negative for: Shortness of Breath Gastrointestinal: Positive for: Nausea, Abdominal Pain Physical Exam - Physical Exam Appears: Non-toxic, Other ( uncomfortable, elderly) Skin: Warm, Dry Head: Atraumatic, Normacephalic Eye(s): bilateral: Normal Inspection Nose: No Flaring Oral Mucosa: Dry Neck: Supple Chest: Symmetrical Cardiovascular: No Rhythm Irregular, No Murmur Respiratory: No Decreased Breath Sounds, No Accessory Muscle Use, No Rales, No Rhonchi, No Wheezing Gastrointestinal/Abdominal: Bowel Sounds (normal), Tenderness (left-sided abd. tenderness), Distention (mild distension) Extremity: Other (left lower leg- prosthesis) Neurological/Psych: Oriented x3, Normal Speech, Normal Motor, Normal Sensation ED Course And Treatment - Laboratory Results Result Diagrams: 01/03/18 13:04 01/03/18 16:06 ECG: Interpreted By Me, Viewed By Me ECG Rhythm: Sinus Rhythm (with 1st degree AV block, possible left atrial enlargement, R BBB, left anterior fascicular block, and bifascicular block. Inferior infarct, age undetermined. Anterior infarct, age undetermined) ECG Interpretation: Abnormal Rate From EC O2 Sat by Pulse Oximetry: 99 (RA) Pulse Ox Interpretation: Normal Medical Decision Making Medical Decision Making: discussed with Dr Israel, will put pt on his servicel he will arrange for dialysis for pt today. Disposition Discussed With : Emilio Israel Doctor Will See Patient In The: Hospital - Disposition Disposition: HOSPITALIZED Disposition Time: 18:47 Condition: FAIR - Clinical Impression Clinical Impression: Abdominal pain, ESRD needing dialysis - Scribe Statement The provider has reviewed the documentation as recorded by the Scribe Marilin Solomon Provider Attestation All medical record entries made by the Scribe were at my direction and personally dictated by me. I have reviewed the chart and agree that the record accurately reflects my personal performance of the history, physical exam, medical decision making, and the department course for this patient. I have also personally directed, reviewed, and agree with the discharge instructions and disposition.
[2018-01-03 13:16] LABS: BASO # 0.1 K/uL (0.0-0.2); BASO % 0.7 % (0.0-2.0); EOS # 0.2 K/uL (0.0-0.7); EOS % 1.5 % (0.0-4.0); HEMOGLOBIN 11.3 g/dL (12.0-18.0); LYMPH # 0.9 K/uL (1.0-4.3); MEAN CORPUSCULAR HEMOGLOBIN 32.4 pg (27.0-31.0); MEAN CORPUSCULAR HGB CONC 32.7 g/dL (33.0-37.0); MEAN PLATELET VOLUME 8.3 fL (7.2-11.7); MONO % 8.9 % (0.0-10.0); NEUT # 9.5 K/uL (1.8-7.0); NEUT % 80.9 % (50.0-75.0); PLATELET COUNT 186 K/uL (130-400); RED CELL DISTRIBUTION WIDTH 16.8 % (11.5-14.5)
[2018-01-03 13:17] LABS: MEAN CELL VOLUME 99.1 fL (80.0-94.0); WHITE BLOOD COUNT 11.8 K/uL (4.8-10.8)
[2018-01-03 13:38] LABS: ANISOCYTOSIS SLIGHT; EOSINOPHIL 1 % (0-4); HYPOCHROMIC SLIGHT; LYMPHOCYTE 10 % (20-40); MONOCYTE 9 % (0-10); NEUTROPHIL 80 % (50-75); OVALOCYTES SLIGHT; PLATELET ESTIMATE NORMAL (NORMAL); POIKILOCYTOSIS SLIGHT; TOTAL CELLS COUNTED 100
[2018-01-03 13:51] LABS: ALB/GLOB RATIO 0.9 (1.0-2.1); ALBUMIN 4.1 g/dL (3.5-5.0); CALCIUM 8.4 mg/dl (8.6-10.4)
[2018-01-03 16:33] LABS: CALCIUM 8.4 mg/dl (8.6-10.4)
[2018-01-03] MEDS ORDERED: Oxycodone/Acetaminophen 5/325 mg Tab PO PRN (16:43)
[2018-01-03] MEDS: Sevelamer Carb 2.4 gm/Packet PO SCH (17:00)
[2018-01-03] MEDS ORDERED: Nitroglycerin 2% Ointment Foilpak UD TOP STA (17:31)
[2018-01-03] MEDS: metroNIDAZOLE IV 500 mg/100 ml 500 MG/100 ML BAG IVPB SCH ×2 (18:00→22:00)
[2018-01-03] MEDS: Paricalcitol 2 mcg/ml Inj IV SCH (18:57)
[2018-01-03] MEDS: EPOETIN ALFA 4,000 UNIT/ML ML Dialysis IV SCH (18:57)
--- NOTE | 2018-01-03 23:17 | US ---
EXAM: US Abdomen Complete EXAM DATE/TIME: 01/03/2018 4:49 PM CLINICAL HISTORY: 72 years old, male; Signs and symptoms; Other: Pancreatitis TECHNIQUE: Real-time ultrasound of the abdomen (complete) with image documentation. COMPARISON: CT - ABD PELVIS W/O PO OR IV CONT 2017-12-21 01:49 FINDINGS: Liver: There is mild increased echogenicity to the liver. There is hepatopedal flow in the main portal vein. Gallbladder: Gallbladder is distended with small shadowing stones. There is no sludge. Gallbladder wall measures approximately 3 L in width. Common bile duct: Common bile duct measures 5 mm in diameter. Pancreas: Pancreas is poorly visualized. Kidneys: There are small right renal cysts. There is a small nonobstructing stone. There are small left renal cysts.there is increased renal cortical echogenicity There is no pelvocaliectasis. Spleen: Spleen is unremarkable. Aorta: Visualized portions of the aorta and inferior vena cava are unremarkable. Portions of aorta and inferior vena cava are obscured by bowel gas. Inferior vena cava: See above. IMPRESSION: Distended gallbladder with small stones, no ductal dilatation; medical renal disease, small bilateral renal cysts, no hydronephrosis; limited evaluation of the pancreas due to overlying bowel gas Additional nonemergent findings as described above.
--- NOTE | 2018-01-03 23:22 | CP.PCM.HP ---
History of Present Illness - History of Present Illness History of Present Illness: History Of Present Illness 72 y/o male, with PMhx of diverticulitis and kidney failure, c/o left-sided abdominal pain and decreased PO intake x 3 days. Pt had diarrhea yesterday and feels nauseous. Pt was discharged last week at [facility] for diverticulitis. Patient denies fever, chills,CP, and SOB. Present on Admission - Present on Admission Any Indicators Present on Admission: Yes Past Patient History - Infectious Disease Hx of Infectious Diseases: None - Past Medical History & Family History Past Medical History?: Yes - Past Social History Smoking Status: Light Smoker < 10 Cigarettes Daily - CARDIAC Hx Hypercholesterolemia: Yes Hx Hypertension: Yes Hx Pacemaker: Yes (12/17) - PULMONARY Other/Comment: light smoker - NEUROLOGICAL Hx Neurological Disorder: No - HEENT Hx HEENT Problems: Yes Other/Comment: left eye vision problems - RENAL Hx Chronic Kidney Disease: Yes - ENDOCRINE/METABOLIC Hx Diabetes Mellitus Type 2: Yes - HEMATOLOGICAL/ONCOLOGICAL Hx Blood Disorders: No - INTEGUMENTARY Hx Dermatological Problems: No - MUSCULOSKELETAL/RHEUMATOLOGICAL Hx Musculoskeletal Disorders: Yes Hx Falls: Yes Other/Comment: left leg prosthesis - GASTROINTESTINAL Hx Gastrointestinal Disorders: Yes Hx Nausea: Yes - GENITOURINARY/GYNECOLOGICAL Hx Genitourinary Disorders: No - PSYCHIATRIC Hx Substance Use: No - SURGICAL HISTORY Hx Surgeries: Yes Hx Amputation: Yes (left bka with prosthesis) Hx Angiogram: Yes Hx Herniorrhaphy: Yes Hx Vascular Access Device: Yes - ANESTHESIA Hx Anesthesia: Yes Hx Anesthesia Reactions: No Hx Malignant Hyperthermia: No Meds Allergies/Adverse Reactions: Allergies Allergy/AdvReac Type Severity Reaction Status Date / Time No Known Allergies Allergy Verified 12/22/17 02:18 Physical Exam - Constitutional Appears: No Acute Distress - Head Exam Head Exam: ATRAUMATIC, NORMAL INSPECTION, NORMOCEPHALIC - Eye Exam Eye Exam: EOMI, Normal appearance, PERRL Pupil Exam: NORMAL ACCOMODATION, PERRL - Respiratory Exam Respiratory Exam: Clear to Auscultation Bilateral, NORMAL BREATHING PATTERN - Cardiovascular Exam Cardiovascular Exam: REGULAR RHYTHM - GI/Abdominal Exam GI & Abdominal Exam: Normal Bowel Sounds, Soft. absent: Tenderness Results - Vital Signs Recent Vital Signs: Last Vital Signs Temp 97.7 F 01/03/18 20:34 Pulse 85 01/03/18 20:34 Resp 18 01/03/18 20:34 BP 148/76 01/03/18 20:34 Pulse Ox 97 01/03/18 20:34 - Labs Result Diagrams: 01/04/18 10:36 01/04/18 10:36 Labs: Laboratory Results - last 24 hr 01/03/18 01/03/18 01/03/18 13:04 13:04 16:06 WBC 11.8 H D RBC 3.50 L Hgb 11.3 L Hct 34.7 L MCV 99.1 H D MCH 32.4 H MCHC 32.7 L RDW 16.8 H Plt Count 186 MPV 8.3 Neut % (Auto) 80.9 H Lymph % (Auto) 8.0 L [place] % (Auto) 8.9 Eos % (Auto) 1.5 Baso % (Auto) 0.7 Neut # (Auto) 9.5 H Lymph # (Auto) 0.9 L [place] # (Auto) 1.0 H Eos # (Auto) 0.2 Baso # (Auto) 0.1 Neutrophils % (Manual) 80 H Lymphocytes % (Manual) 10 L Monocytes % (Manual) 9 Eosinophils % (Manual) 1 Platelet Estimate Normal Hypochromasia (manual) Slight Poikilocytosis (manual Slight Anisocytosis (manual) Slight Ovalocytes Slight Sodium 138 139 Potassium 6.7 H* D 5.3 H Chloride 100 102 Carbon Dioxide 20 L 19 L Anion Gap 24 H 23 H BUN 58 H 60 H Creatinine 10.4 H* 10.7 H* Est GFR ( Amer) 6 6 Est GFR (Non-Af Amer) 5 5 Random Glucose 145 H 203 H Calcium 8.4 L 8.4 L Total Bilirubin 0.9 AST 40 ALT 23 Alkaline Phosphatase 102 Total Protein 8.6 H Albumin 4.1 Globulin 4.5 H Albumin/Globulin Ratio 0.9 L Lipase 497 H Assessment & Plan (1) Abdominal pain Status: Acute (2) ESRD needing dialysis Status: Acute (3) CKD (chronic kidney disease) Status: Acute (4) Diabetic ulcer of left fifth toe Status: Acute Priority: High
--- NOTE | 2018-01-03 23:57 | CP.PCM.PN ---
Subjective - Date & Time of Evaluation Date of Evaluation: 01/03/18 Time of Evaluation: 23:56 - Subjective Subjective: 72 yo male with pmh/o htn, dm esrd, s/p cardiac arrest s/p AICD, s/p left bka, diverticulosis was recently admitted to and discharged home lat week . now admitted thru ER with abd. pain and hyprkalemia s/p hd today, uf about2.7 lit Objective - Vital Signs/Intake and Output Vital Signs (last 24 hours): Temp Pulse Resp BP Pulse Ox 97.7 F 85 18 148/76 97 01/03/18 20:34 01/03/18 20:34 01/03/18 20:34 01/03/18 20:34 01/03/18 20:34 - Medications Medications: Current Medications Acetaminophen (Tylenol 325mg Tab) 650 mg PO Q6 PRN PRN Reason: Pain, moderate (4-7) Aspirin (Aspirin Chewable) 81 mg PO DAILY [facility] Epoetin Omi (Procrit) 4,000 unit IV TTS [facility] Stop: 01/07/18 10:01 Last Admin: 01/03/18 18:57 Dose: 4,000 unit Famotidine (Pepcid) 20 mg PO DAILY [facility] Famotidine (Pepcid) 20 mg IVP Q12 [facility] Last Admin: 01/03/18 22:59 Dose: 20 mg Ferrous Sulfate (Feosol) 325 mg PO DAILY [facility] Finasteride (Proscar) 5 mg PO HS [facility] Heparin Sodium (Porcine) (Heparin) 5,000 units SC Q8 [facility] Last Admin: 01/03/18 22:43 Dose: 5,000 units Hydralazine HCl (Apresoline) 50 mg PO Q8 [facility] Last Admin: 01/03/18 22:43 Dose: 50 mg Ceftriaxone Sodium 1 gm/ (Sodium Chloride) 100 mls @ 100 mls/hr IVPB DAILY [facility] PRN Reason: Protocol Last Admin: 01/03/18 20:50 Dose: 100 mls/hr Metronidazole (Flagyl) 500 mg in 100 mls @ 100 mls/hr IVPB Q8 [facility] PRN Reason: Protocol Metoprolol Succinate (Toprol Xl) 50 mg PO DAILY [facility] Oxycodone/Acetaminophen (Percocet 5/325 Mg Tab) 1 tab PO QID PRN PRN Reason: Pain, Mild (1-3) Stop: 01/06/18 16:44 Paricalcitol (Zemplar) 2 mcg IV TTS [facility] Stop: 01/07/18 10:01 Last Admin: 01/03/18 18:57 Dose: 2 mcg Rosuvastatin Calcium (Crestor) 5 mg PO HS [facility] Last Admin: 01/03/18 22:43 Dose: 5 mg Sevelamer Carbonate (Renvela) 2.4 gm PO TIDCC [facility] Last Admin: 01/03/18 17:00 Dose: Not Given Vitamin B Complex/Vit C/Folic Acid (Nephro-Benoit) 1 tab PO DAILY [facility] - Labs Labs: 01/03/18 13:04 01/03/18 16:06
[2018-01-04] MEDS: metroNIDAZOLE IV 500 mg/100 ml 500 MG/100 ML BAG IVPB SCH ×4 (05:33→21:22)
[2018-01-04] MEDS: Sevelamer Carb 2.4 gm/Packet PO SCH ×3 (09:34→17:23)
[2018-01-04] MEDS: Metoprolol Succinate 50 mg XL Tab PO SCH (09:36)
[2018-01-04] MEDS: Multivitamin Vitamin B Complex (Nephro-Vite) Tab PO SCH (09:37)
--- NOTE | 2018-01-04 09:39 | CP.PCM.PN ---
Subjective - Date & Time of Evaluation Date of Evaluation: 01/04/18 Time of Evaluation: 09:38 - Subjective Subjective: pt is seen and examined, follow up consult is dictated #[id number] for hd in am Objective - Vital Signs/Intake and Output Vital Signs (last 24 hours): Temp Pulse Resp BP Pulse Ox 99.6 F 81 20 153/70 H 96 01/04/18 08:00 01/04/18 08:00 01/04/18 08:00 01/04/18 08:00 01/04/18 04:36 Intake and Output: 01/04/18 01/04/18 06:59 18:59 Intake Total 280 Balance 280 - Medications Medications: Current Medications Acetaminophen (Tylenol 325mg Tab) 650 mg PO Q6 PRN PRN Reason: Pain, moderate (4-7) Aspirin (Aspirin Chewable) 81 mg PO DAILY [facility] Last Admin: 01/04/18 09:37 Dose: 81 mg Epoetin Omi (Procrit) 4,000 unit IV TTS [facility] Stop: 01/07/18 10:01 Last Admin: 01/03/18 18:57 Dose: 4,000 unit Famotidine (Pepcid) 20 mg PO DAILY [facility] Last Admin: 01/04/18 09:36 Dose: 20 mg Famotidine (Pepcid) 20 mg IVP Q12 [facility] Last Admin: 01/03/18 22:59 Dose: 20 mg Ferrous Sulfate (Feosol) 325 mg PO DAILY [facility] Last Admin: 01/04/18 09:37 Dose: 325 mg Finasteride (Proscar) 5 mg PO HS [facility] Heparin Sodium (Porcine) (Heparin) 5,000 units SC Q8 [facility] Last Admin: 01/04/18 05:32 Dose: 5,000 units Hydralazine HCl (Apresoline) 50 mg PO Q8 [facility] Last Admin: 01/04/18 05:32 Dose: 50 mg Ceftriaxone Sodium 1 gm/ (Sodium Chloride) 100 mls @ 100 mls/hr IVPB DAILY [facility] PRN Reason: Protocol Last Admin: 01/04/18 09:34 Dose: 100 mls/hr Metronidazole (Flagyl) 500 mg in 100 mls @ 100 mls/hr IVPB Q8 [facility] PRN Reason: Protocol Last Admin: 01/04/18 05:33 Dose: 100 mls/hr Metoprolol Succinate (Toprol Xl) 50 mg PO DAILY [facility] Last Admin: 01/04/18 09:36 Dose: 50 mg Oxycodone/Acetaminophen (Percocet 5/325 Mg Tab) 1 tab PO QID PRN PRN Reason: Pain, Mild (1-3) Stop: 01/06/18 16:44 Paricalcitol (Zemplar) 2 mcg IV TTS [facility] Stop: 01/07/18 10:01 Last Admin: 01/03/18 18:57 Dose: 2 mcg Rosuvastatin Calcium (Crestor) 5 mg PO HS [facility] Last Admin: 01/03/18 22:43 Dose: 5 mg Sevelamer Carbonate (Renvela) 2.4 gm PO TIDCC [facility] Last Admin: 01/04/18 09:34 Dose: 2.4 gm Vitamin B Complex/Vit C/Folic Acid (Nephro-Benoit) 1 tab PO DAILY [facility] Last Admin: 01/04/18 09:37 Dose: 1 tab - Labs Labs: 01/03/18 13:04 01/03/18 16:06
[2018-01-04 10:44] LABS: HEMOGLOBIN 10.4 g/dL (12.0-18.0); MEAN CELL VOLUME 98.3 fL (80.0-94.0); MEAN CORPUSCULAR HEMOGLOBIN 32.4 pg (27.0-31.0); MEAN PLATELET VOLUME 8.1 fL (7.2-11.7); RBC 3.22 Mil/uL (4.40-5.90); WHITE BLOOD COUNT 8.7 K/uL (4.8-10.8)
[2018-01-04 11:14] LABS: ALB/GLOB RATIO 0.8 (1.0-2.1); ALBUMIN 3.3 g/dL (3.5-5.0); CALCIUM 7.5 mg/dl (8.6-10.4)
--- NOTE | 2018-01-04 22:42 | CP.PCM.PN ---
Subjective - Date & Time of Evaluation Date of Evaluation: 01/04/18 Time of Evaluation: 18:50 - Subjective Subjective: Pt seen & examined at bedside Objective - Vital Signs/Intake and Output Vital Signs (last 24 hours): Temp Pulse Resp BP Pulse Ox 98.3 F 80 20 156/67 H 97 01/04/18 16:00 01/04/18 16:00 01/04/18 16:00 01/04/18 16:00 01/04/18 16:00 Intake and Output: 01/04/18 01/05/18 18:59 06:59 Intake Total 600 Balance 600 - Medications Medications: Current Medications Acetaminophen (Tylenol 325mg Tab) 650 mg PO Q6 PRN PRN Reason: Pain, moderate (4-7) Aspirin (Aspirin Chewable) 81 mg PO DAILY [facility] Last Admin: 01/04/18 09:37 Dose: 81 mg Epoetin Omi (Procrit) 4,000 unit IV TTS [facility] Stop: 01/07/18 10:01 Last Admin: 01/03/18 18:57 Dose: 4,000 unit Famotidine (Pepcid) 20 mg PO DAILY [facility] Last Admin: 01/04/18 09:36 Dose: 20 mg Famotidine (Pepcid) 20 mg IVP Q12 [facility] Last Admin: 01/04/18 21:23 Dose: 20 mg Ferrous Sulfate (Feosol) 325 mg PO DAILY [facility] Last Admin: 01/04/18 09:37 Dose: 325 mg Finasteride (Proscar) 5 mg PO HS [facility] Heparin Sodium (Porcine) (Heparin) 5,000 units SC Q8 [facility] Last Admin: 01/04/18 21:23 Dose: 5,000 units Hydralazine HCl (Apresoline) 50 mg PO Q8 [facility] Last Admin: 01/04/18 21:23 Dose: 50 mg Ceftriaxone Sodium 1 gm/ (Sodium Chloride) 100 mls @ 100 mls/hr IVPB DAILY [facility] PRN Reason: Protocol Last Admin: 01/04/18 09:34 Dose: 100 mls/hr Metronidazole (Flagyl) 500 mg in 100 mls @ 100 mls/hr IVPB Q8 [facility] PRN Reason: Protocol Last Admin: 01/04/18 21:22 Dose: 100 mls/hr Metoprolol Succinate (Toprol Xl) 50 mg PO DAILY [facility] Last Admin: 01/04/18 09:36 Dose: 50 mg Oxycodone/Acetaminophen (Percocet 5/325 Mg Tab) 1 tab PO QID PRN PRN Reason: Pain, Mild (1-3) Stop: 01/06/18 16:44 Paricalcitol (Zemplar) 2 mcg IV TTS [facility] Stop: 01/07/18 10:01 Last Admin: 01/03/18 18:57 Dose: 2 mcg Rosuvastatin Calcium (Crestor) 5 mg PO HS [facility] Last Admin: 01/04/18 21:23 Dose: 5 mg Sevelamer Carbonate (Renvela) 2.4 gm PO TIDCC [facility] Last Admin: 01/04/18 17:23 Dose: 2.4 gm Vitamin B Complex/Vit C/Folic Acid (Nephro-Benoit) 1 tab PO DAILY [facility] Last Admin: 01/04/18 09:37 Dose: 1 tab - Labs Labs: 01/04/18 10:36 01/04/18 10:36
--- NOTE | 2018-01-05 04:45 | PN ---
DATE: 01/04/2018 FOLLOWUP RENAL CONSULTATION LOCATION: The patient is located in room 360, bed B. REQUESTED BY: Emilio Israel MD HISTORY OF PRESENT ILLNESS: Mr. Richards is a 72 years old elderly male with a past medical history significant for longstanding hypertension, diabetes, hyperlipidemia, BPH, status post cardiac arrest and status post AICD placement, status post left BKA, was recently admitted to [facility] for nausea, abdominal distention and left lower quadrant pain. Subsequently, the patient underwent colonoscopy and EGD and discharged home. Now, the patient was admitted with chief complaints of severe left lower quadrant pain and unable to go to dialysis and the patient was admitted yesterday and found to have hyperkalemia status post hemodialysis last night, had ultrafiltration about 2.7 liters. The patient still complains of left lower quadrant pain. No nausea, no vomiting. No fever, no cough. No dysuria or frequency. PHYSICAL EXAMINATION: VITAL SIGNS: As follows; blood pressure this morning 153/70, pulse 81, respirations 20, temperature 99.6, saturation 96%. Height 6 feet 1 inch, weight is 197 pounds. GENERAL: Mr. Richards is a 72 years old elderly male, moderately built, moderately nourished, not in distress. HEENT: Pupils are normal, reactive to light and accommodation. Conjunctivae pink. Sclerae anicteric. Tongue is moist. Trachea is midline. LUNGS: Symmetric on both sides. Bilateral breath sounds present. Clear on auscultation. CVS: [place] at the fifth intercostal space, midclavicular line. S1 and S2 audible. No murmur or gallop. ABDOMEN: Normal in appearance, soft, tympanic. No hepatosplenomegaly. The patient has left lower quadrant tenderness present. No guarding, no rigidity. Bowel sounds present. KARATE TEACHER: The patient is alert, awake, oriented x3. Nonfocal neuro examination. Cranial nerves II through XII grossly intact. Sensory and motor system is within normal limits. EXTREMITIES: No cyanosis, no clubbing, no edema on the right leg, status post left BKA. CURRENT MEDICATIONS: Include as follows; hydralazine 50 mg p.o. q. 8 hours, aspirin 81 mg daily, Rocephin 1 gm daily, Crestor 5 mg p.o. at bedtime, ferrous sulfate 325 mg p.o. daily, Flagyl 500 mg IV q. 8 hours, subcu heparin 5000 q. 8 hours, Nephro-Benoit 1 tablet daily, Pepcid 20 mg daily, Percocet 1 tablet p.o. q.i.d. p.r.n., Procrit 4000 units three times a week, Proscar 5 mg p.o. at bedtime, Renvela 2.4 mg p.o. t.i.d. with meals, metoprolol 50 mg p.o. daily, Tylenol and Zemplar 2 mcg 3 times a week. LABORATORY DATA: Include as follows as of 01/03/2018; WBC 11.8, hemoglobin 11.3, hematocrit is 34.7, platelets 186. Sodium 138, potassium 6.7, chloride 100, CO2 of 20, BUN 58, creatinine 10.4, glucose 145, calcium 8.4, total bili 0.9, AST 40, ALT 23, alkaline phosphatase 102, total protein albumin 4.1, and lipase is 497. BMP predialysis yesterday sodium 139, potassium 5.3, chloride 102, CO2 19, BUN 60, creatinine 10.7, glucose 203, calcium 8.4. His chem-7 as of 01/04/2018; WBC 8.7, hemoglobin 10.4, hematocrit is 31.6, platelets 148. Sodium 138, potassium 4.3, chloride 98, CO2 of 25, BUN 35, creatinine 7.5, glucose 216, calcium 7.5, total bili 0.3, AST 26, ALT 16, alkaline phosphatase 75, total protein 7.4, albumin is 3.3. Ultrasound of the abdomen as of 01/03/2018 and liver, there is mild increased echogenicity to the liver, there is hepatopetal flow in the main portal vein. Gallbladder is distended with small shadowing stone. There is no sludge. Gallbladder wall measures approximately 3 mm in width, CBD measures 5 mm in diameter. Pancreas is poorly visualized. Kidneys, there is a small right renal cyst. Impression, distended gallbladder with small stone, no ductal dilatation, medical renal disease, small bilateral renal cyst, no hydronephrosis, limited evaluation of the pancreas due to overlying bowel gas. ASSESSMENT: In summary, Mr. Richards is a 72 years old elderly male with a past medical history significant for longstanding hypertension, diabetes, hyperlipidemia, benign prostatic hypertrophy, end-stage renal disease, who was admitted with left lower quadrant pain and unable to travel to dialysis. 1. End-stage renal disease. Continue hemodialysis three times a week Tuesday, , Tuesday. The patient underwent hemodialysis last night, had ultrafiltration about 2.7 liters. 2. Hyperkalemia. 3. Hypertension. 4. Diabetes. 5. Left lower quadrant pain, rule out diverticulitis also with elevated WBC count. PLAN: I agree with IV antibiotics Rocephin and Flagyl. Continue his current medication, hydralazine and metoprolol and continue Procrit and Zemplar for secondary hyperparathyroidism. We will follow with you. Thank you for allowing me to participate in your patient's care. Blanca Thakkar MD MTDTraci
[2018-01-05] MEDS: metroNIDAZOLE IV 500 mg/100 ml 500 MG/100 ML BAG IVPB SCH ×3 (05:35→21:44)
[2018-01-05] MEDS: Sevelamer Carb 2.4 gm/Packet PO SCH ×3 (08:40→18:11)
--- NOTE | 2018-01-05 09:50 | CP.PCM.PN ---
Subjective - Date & Time of Evaluation Date of Evaluation: 01/05/18 Time of Evaluation: 09:49 - Subjective Subjective: pt is seen and examined, follow up consult is dictated #[id number] for hd today, uf 2.4 lit check stool for c. diff Objective - Vital Signs/Intake and Output Vital Signs (last 24 hours): Temp Pulse Resp BP Pulse Ox 98.8 F 77 20 148/56 L 100 01/05/18 08:34 01/05/18 08:34 01/05/18 08:34 01/05/18 08:34 01/05/18 08:34 Intake and Output: 01/05/18 01/05/18 06:59 18:59 Intake Total 300 Balance 300 - Medications Medications: Current Medications Acetaminophen (Tylenol 325mg Tab) 650 mg PO Q6 PRN PRN Reason: Pain, moderate (4-7) Aspirin (Aspirin Chewable) 81 mg PO DAILY [facility] Last Admin: 01/04/18 09:37 Dose: 81 mg Epoetin Omi (Procrit) 4,000 unit IV TTS [facility] Stop: 01/07/18 10:01 Last Admin: 01/03/18 18:57 Dose: 4,000 unit Famotidine (Pepcid) 20 mg PO DAILY [facility] Last Admin: 01/04/18 09:36 Dose: 20 mg Famotidine (Pepcid) 20 mg IVP Q12 [facility] Last Admin: 01/04/18 21:23 Dose: 20 mg Ferrous Sulfate (Feosol) 325 mg PO DAILY [facility] Last Admin: 01/04/18 09:37 Dose: 325 mg Finasteride (Proscar) 5 mg PO HS [facility] Last Admin: 01/04/18 23:54 Dose: Not Given Heparin Sodium (Porcine) (Heparin) 5,000 units SC Q8 [facility] Last Admin: 01/05/18 05:35 Dose: 5,000 units Hydralazine HCl (Apresoline) 50 mg PO Q8 [facility] Last Admin: 01/05/18 05:35 Dose: 50 mg Ceftriaxone Sodium 1 gm/ (Sodium Chloride) 100 mls @ 100 mls/hr IVPB DAILY [facility] PRN Reason: Protocol Last Admin: 01/04/18 09:34 Dose: 100 mls/hr Metronidazole (Flagyl) 500 mg in 100 mls @ 100 mls/hr IVPB Q8 [facility] PRN Reason: Protocol Last Admin: 01/05/18 05:35 Dose: 100 mls/hr Metoprolol Succinate (Toprol Xl) 50 mg PO DAILY [facility] Last Admin: 01/04/18 09:36 Dose: 50 mg Oxycodone/Acetaminophen (Percocet 5/325 Mg Tab) 1 tab PO QID PRN PRN Reason: Pain, Mild (1-3) Stop: 01/06/18 16:44 Paricalcitol (Zemplar) 2 mcg IV TTS [facility] Stop: 01/07/18 10:01 Last Admin: 01/03/18 18:57 Dose: 2 mcg Rosuvastatin Calcium (Crestor) 5 mg PO HS [facility] Last Admin: 01/04/18 21:23 Dose: 5 mg Sevelamer Carbonate (Renvela) 2.4 gm PO TIDCC [facility] Last Admin: 01/05/18 08:40 Dose: 2.4 gm Vitamin B Complex/Vit C/Folic Acid (Nephro-Benoit) 1 tab PO DAILY [facility] Last Admin: 01/04/18 09:37 Dose: 1 tab - Labs Labs: 01/04/18 10:36 01/04/18 10:36
[2018-01-05] MEDS: Multivitamin Vitamin B Complex (Nephro-Vite) Tab PO SCH (09:53)
[2018-01-05] MEDS: Metoprolol Succinate 50 mg XL Tab PO SCH (09:54)
[2018-01-05] MEDS: Paricalcitol 2 mcg/ml Inj IV SCH ×2 (09:55→12:45)
[2018-01-05] MEDS ORDERED: Epoetin Alfa 10,000 unit/ml Dialysis IV SCH (10:00)
[2018-01-05] MEDS: EPOETIN ALFA 4,000 UNIT/ML ML Dialysis IV SCH (12:44)
--- NOTE | 2018-01-05 16:00 | CARD ---
APPROVED REPORT EKG Measurement Heart [id number] <Conclusion> Sinus rhythm with 1st degree AV block Possible Left atrial enlargement Right bundle branch block Left anterior fascicular block Bifascicular block Inferior infarct, age undetermined Abnormal ECG
--- NOTE | 2018-01-05 16:12 | PN ---
DATE: LOCATION[place] [facility]. SUBJECTIVE: This is a 72-year-old male seen and examined for GI consultation on 01/04/2018 as requested by the admitting MD, reexamined again today and found with intermittent periods of abdominal pain on and off with postprandial abdominal distention associated with some nausea. The entire chart is reviewed including but not limited to the most recent lab and radiology study results, current and the previous medication list, current and the previous medical events. Case discussed with the staff at length in the floor with postprandial abdominal distention and nausea. The patient recently had upper and lower endoscopy seen report. The patient is for hemodialysis. The entire chart is reviewed including but not limited to the most recent lab and radiology study results, current and the previous medication list, current and the previous medical events. Today's lab is still pending. However, it was reported that the patient still has low hemoglobin of 10.4, hematocrit 31.6, with normal white blood cells and normal platelet count since the admission. BUN 35, creatinine 7.5, glucose 216 as per yesterday, with low albumin and low calcium. Abdominal ultrasound done at the time of the admission, official report is seen, indicative of distended gallbladder with small stones, but no ductal dilation. The patient denies any chest pain, significant shortness of breath, or active bleeding. PHYSICAL EXAMINATION: GENERAL: A 72-year-old male, awake, alert, oriented. VITAL SIGNS: Afebrile with pulse of 74, respiratory rate 20 to 22, blood pressure 160/72. HEENT: Showed mildly pale dry oral mucous membrane, nonicteric sclerae. LUNGS: Few scattered crepitations. Decreased air entry at bases. HEART: Positive S1 and S2. ABDOMEN: Soft with generalized tenderness. No mass or organomegaly. No rebound tenderness or guarding. EXTREMITIES: No significant clubbing or cyanosis, but lower extremity with edematous changes. NEUROLOGIC: No reported new neurological deficits, sensory or motor. Most recent lipase level was elevated, indicative of acute pancreatitis. IMPRESSION: 1. Acute pancreatitis of unclear etiology, awaiting serum lipid profile. 2. Exacerbation of peptic ulcer disease. 3. Cholelithiasis without clear evidence of cholecystitis, the possibility, however, of biliary pancreatitis was raised, but the patient has normal liver function tests since admission. 4. Known history, but not limited to hypertension, hyperlipidemia, chronic renal failure, on hemodialyses with cardiac arrhythmia as well as status post pacemaker insertion. 5. Recent history of diarrhea with possible diverticulitis, on antibiotics. SUGGESTIONS: 1. Agree with your plan. 2. Repeat serum lipase, amylase level. 3. Repeat liver function tests. 4. IV antibiotics. 5. Proton pump inhibitors. 6. Cancer markers including CEA, CA 19-9. 7. Further recommendations to follow and no aggressive GI workup in the meantime until the patient is more stable clinically. 8. Further recommendations to follow. Frank Chamorro MD
--- NOTE | 2018-01-05 23:09 | CP.PCM.PN ---
Subjective - Date & Time of Evaluation Date of Evaluation: 01/05/18 Time of Evaluation: 19:00 - Subjective Subjective: PT IS SEEN AND EXAMINED, FEELING BETTER, DECREASED LLQ ABDOMINAL PAIN, HE HAD NORMAL BOWEL MOVEMENT, NO FEVER, NO BLEEDING HE IS ON LIQUID DIET, WILL SWITCH TO REGULAR RENAL DIET Objective - Vital Signs/Intake and Output Vital Signs (last 24 hours): Temp Pulse Resp BP Pulse Ox 100.0 F H 80 20 163/72 H 100 01/05/18 15:29 01/05/18 15:29 01/05/18 15:29 01/05/18 15:29 01/05/18 15:29 Intake and Output: 01/05/18 01/06/18 18:59 06:59 Intake Total 400 350 Balance 400 350 - Medications Medications: Current Medications Acetaminophen (Tylenol 325mg Tab) 650 mg PO Q6 PRN PRN Reason: Pain, moderate (4-7) Aspirin (Aspirin Chewable) 81 mg PO DAILY [facility] Last Admin: 01/05/18 09:53 Dose: Not Given Epoetin Omi (Procrit) 4,000 unit IV TTS [facility] Stop: 01/07/18 10:01 Last Admin: 01/05/18 12:44 Dose: 4,000 unit Famotidine (Pepcid) 20 mg PO DAILY [facility] Last Admin: 01/05/18 09:53 Dose: Not Given Famotidine (Pepcid) 20 mg IVP Q12 [facility] Last Admin: 01/05/18 21:43 Dose: 20 mg Ferrous Sulfate (Feosol) 325 mg PO DAILY [facility] Last Admin: 01/05/18 09:53 Dose: Not Given Finasteride (Proscar) 5 mg PO HS [facility] Last Admin: 01/05/18 21:43 Dose: 5 mg Heparin Sodium (Porcine) (Heparin) 5,000 units SC Q8 [facility] Last Admin: 01/05/18 21:44 Dose: 5,000 units Hydralazine HCl (Apresoline) 50 mg PO Q8 [facility] Last Admin: 01/05/18 21:43 Dose: 50 mg Ceftriaxone Sodium 1 gm/ (Sodium Chloride) 100 mls @ 100 mls/hr IVPB DAILY [facility] PRN Reason: Protocol Last Admin: 01/05/18 09:54 Dose: Not Given Metronidazole (Flagyl) 500 mg in 100 mls @ 100 mls/hr IVPB Q8 [facility] PRN Reason: Protocol Last Admin: 01/05/18 21:44 Dose: 100 mls/hr Metoprolol Succinate (Toprol Xl) 50 mg PO DAILY [facility] Last Admin: 01/05/18 09:54 Dose: Not Given Oxycodone/Acetaminophen (Percocet 5/325 Mg Tab) 1 tab PO QID PRN PRN Reason: Pain, Mild (1-3) Stop: 01/06/18 16:44 Paricalcitol (Zemplar) 2 mcg IV TTS [facility] Stop: 01/07/18 10:01 Last Admin: 01/05/18 12:45 Dose: 2 mcg Rosuvastatin Calcium (Crestor) 5 mg PO HS [facility] Last Admin: 01/05/18 21:43 Dose: 5 mg Sevelamer Carbonate (Renvela) 2.4 gm PO TIDCC [facility] Last Admin: 01/05/18 18:11 Dose: 2.4 gm Vitamin B Complex/Vit C/Folic Acid (Nephro-Benoit) 1 tab PO DAILY [facility] Last Admin: 01/05/18 09:53 Dose: Not Given - Labs Labs: 01/04/18 10:36 01/04/18 10:36 - Constitutional Appears: No Acute Distress - Head Exam Head Exam: ATRAUMATIC, NORMAL INSPECTION, NORMOCEPHALIC - Eye Exam Eye Exam: EOMI, Normal appearance, PERRL Pupil Exam: NORMAL ACCOMODATION, PERRL - Respiratory Exam Respiratory Exam: Clear to Ausculation Bilateral, NORMAL BREATHING PATTERN - Cardiovascular Exam Cardiovascular Exam: REGULAR RHYTHM, +S1, +S2. absent: Murmur - GI/Abdominal Exam GI & Abdominal Exam: Soft, Normal Bowel Sounds. absent: Tenderness Assessment and Plan (1) Abdominal pain Assessment & Plan: ANTIBIOTICS STABLE PROCEED DIET STABLE FOR DISCHARGE T[place]MOROW Status: Acute (2) ESRD needing dialysis Status: Acute (3) Diabetic ulcer of left fifth toe Status: Acute (4) Diverticulitis Status: Acute
--- NOTE | 2018-01-06 05:03 | CON ---
DATE: 01/04/2018. LOCATION: 360, bed B. Henrietta was called for GI consultation by the admitting medical team. The patient is seen and fully examined for GI consultation on 01/04/2018 as requested by the admitting medical staff as primary MD. The entire chart is reviewed including, but not limited to the most recent lab and radiology study results, current and the previous medication list, current and the previous medical events, allergies to medication list as well as all the available current and previous medical records. The case discussed at length with the staff before and after my GI consultation on 01/04/2018. HISTORY OF PRESENT ILLNESS: This is a 72 years old male, well-known case for me from previous admission. He was admitted to the hospital from the emergency room with the main complaint of severe crampy, left sided abdominal pain, midepigastric pain, loss of appetite and subsequent decrease of p.o. intake for the last three to four days prior to his admission followed by diarrhea, dyspepsia with nausea, but no reported active bleeding. The patient had similar episode recently with underlying diagnosis of acute diverticulitis, but no reported chest pain, palpitations, significant shortness of breath, chills or fever. No reported active bleeding. After being admitted to the hospital, initial blood workup showed leukocytosis of 11.8, low hemoglobin 11.3, low hematocrit 34.7, but normal platelet count. Blood glucose level 203, BUN 6, creatinine 10.7 compatible with the patient's known history of chronic renal failure. Potassium 5.3, CO2 content of 19 indicative of metabolic acidosis. PAST MEDICAL HISTORY: Including but not limited to; 1. Hypertension. 2. Hyperlipidemia. 3. Peptic ulcer disease. 4. Diverticulosis with recurrent diverticulitis. 5. End-stage renal disease on hemodialysis. 6. Cardiac arrhythmia with status post pacemaker insertion. 7. AV fistula due to his chronic renal failure. 8. Colonoscopy done recently on 12/2017 as well as upper endoscopy. FAMILY HISTORY: Unknown. SOCIAL HISTORY: Positive for cigarette smoking. The patient is an ex-alcoholic. CURRENT MEDICATIONS: Medication list was reviewed. ALLERGY TO MEDICATION: UNCLEAR. PHYSICAL EXAMINATION: GENERAL: A 72 years old male complaining of abdominal pain with more than one episode of diarrhea and postprandial abdominal distention, appears to be awake, alert and oriented. VITAL SIGNS: Afebrile with pulse of 82, respiratory rate 18 to 20, blood pressure 172/80. HEENT: Showed pale, dry oral mucous membrane. Nonicteric sclerae. LYMPH NODES: No lymphadenitis or lymphadenopathy. LUNGS: Scattered mild crepitation with decreased air entry at bases. HEART: Positive S1 and S2. ABDOMEN: Soft with slight tenderness mild distention, positive for mid epigastric as well as left lower quadrant tenderness. No mass or organomegaly. No rebound tenderness or guarding. RECTAL: The patient refused. EXTREMITIES: Slight lower extremity edematous changes. No clubbing or cyanosis. NEUROLOGIC: No reported new neurological deficits, sensory or motor. IMPRESSION: 1. Diverticulosis with recurrent acute diverticulitis. 2. Reexacerbation of peptic ulcer disease. 3. Diarrhea secondary to above, to rule out pseudomembranous colitis. 4. Past medical history including, but not limited to what mentioned above including hypertension, chronic renal failure, hyperlipidemia, end-stage renal disease, on hemodialysis. 5. Electrolyte imbalance secondary to above. 6. Leukocytosis secondary to above. SUGGESTIONS: 1. Agree with your plan. 2. Complete stool analysis including C. diff. The patient had been on antibiotic recently. 3. Keep n.p.o. except oral medication in the meantime. 4. Sectional abdominal and pelvic CAT scan. 5. Serum lipase and amylase level. 6. Repeat cancer markers including CEA. 7. Flagyl IV 500 mg IV piggyback daily due to the patient' s renal failure. 8. Vancomyin p.o. 500 once a day only. 9. Proton pump inhibitors IV. 10. Reglan IV. 11. Further recommendation to follow. Thank you for letting me participate in your patient's case management and no need for any aggressive GI workup in the meantime. Frank Chamorro MD
[2018-01-06] MEDS: metroNIDAZOLE IV 500 mg/100 ml 500 MG/100 ML BAG IVPB SCH (05:08)
--- NOTE | 2018-01-06 07:20 | PN ---
DATE: 01/05/2018 FOLLOWUP RENAL CONSULTATION LOCATION: The patient is located in room 360, bed B. REQUESTED BY: Emilio Israel MD REASON FOR FOLLOWUP: End-stage renal disease, continuation of hemodialysis. HISTORY OF PRESENT ILLNESS: Mr. Richards is 72 years old elderly male with a past medical history significant for longstanding hypertension, diabetes, end-stage renal disease, status post left BKA, status post pacemaker who was admitted with chief complaints of abdominal pain. Now, the patient is complaining of loose bowel movement x3 yesterday and x2 this morning. The patient was seen and examined during hemodialysis. Ultrafiltration goal is about 2.5 liters. No fever. No cough. No blood in the stool. PHYSICAL EXAMINATION: VITAL SIGNS: As follows: Blood pressure 158/71, pulse 74, respirations 20, temperature 98.6, saturation 98%. Height 6 feet 1 inch, weight is 197 pounds. BMI 26.1. GENERAL: Mr. Richards is a 72 years old elderly male, moderately built, moderate nourished, not in acute distress. HEENT: Pupils normal and reactive to light and accommodation. Conjunctivae pink. Sclerae anicteric. Tongue is moist, and trachea is midline. LUNGS: Symmetric on both sides. Bilateral breath sounds present. Clear on auscultation. CVS: [place] at the fifth intercostal space, midclavicular line. S1, S2 audible. No murmur or gallop. ABDOMEN: Normal in appearance, slightly distended, hyperactive bowel sounds. The patient has a mild tenderness in the left lower quadrant. No guarding. No rigidity. Bowel sounds present. No hepatosplenomegaly. 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 Nonfocal neuro examination. Cranial nerves II through XII grossly intact. Sensory and motor system is within normal limits. EXTREMITIES: No cyanosis, no clubbing, no edema on the right leg. The patient has a left BKA. MEDICATIONS: His current medications include as follows, hydralazine 50 mg p.o. q.8 hours, aspirin 81 mg daily, Rocephin 1 gm daily, Crestor 5 mg at bedtime, Feosol 325 mg p.o. daily, Flagyl 500 mg IV q.8 hours, subcu heparin 5000 q.8 hours, Nephro-Benoit 1 tablet daily, Pepcid 20 mg daily, Percocet 1 tablet p.o. q.i.d., Procrit 4000 units three times a week, Renvela 2.4 mg p.o. t.i.d., Toprol XL 50 mg p.o. daily, Tylenol, Zemplar 2 mcg. LABORATORY DATA: Include amylase is 132 and lipase is 360. CEA is 6.9, CA 19-9 is 44.4. As of 01/04/2018, sodium 138, potassium 4.3, chloride 98, CO of 25, BUN 35, creatinine 7.5, glucose 216, calcium 7.5, total bili 0.6, AST 26, ALT 16, alkaline phosphatase 75, total protein 7.4, albumin is 3.3. IMPRESSION: In summary, Mr. Richards is 72 years old elderly male with a history of hypertension, diabetes, end-stage renal disease, status post left below knee amputation, status post pacemaker who was admitted with a left flank, left lower quadrant pain, now complaining of diarrhea times five since yesterday, three last night and two this morning. 1. End-stage renal disease. Continue hemodialysis three times a week Tuesday, , and Tuesday. The patient was seen and examined. During dialysis had ultrafiltration, 2.4 liters. 2. Hypertension. Blood pressure is stable. Continue his current medication, hydralazine and metoprolol. 3. Diabetes. Sugars under control. 4. Left quadrant pain, rule out diverticulitis. Continue antibiotics Rocephin and Flagyl as per Dr. Israel. Continue the Epogen and Renvela. Check stool for C. diff. We will follow with you. Thank you for allowing me to participate in your patient's care. Blanca Thakkar MD
[2018-01-06] MEDS: Sevelamer Carb 2.4 gm/Packet PO SCH ×3 (08:34→16:52)
[2018-01-06] MEDS: Multivitamin Vitamin B Complex (Nephro-Vite) Tab PO SCH (09:23)
[2018-01-06] MEDS: Metoprolol Succinate 50 mg XL Tab PO SCH (09:23)
[2018-01-06] MEDS ORDERED: Vancomycin 125 MG/5 ML SOLN (ORAL/RECTAL) PO SCH (10:00)
[2018-01-06] MEDS ORDERED: Iohexol 240 (50 ml) PO ONE (10:45)
[2018-01-06] MEDS ORDERED: Iodixanol 320 MG/ML 100 ML BOTTLE IV ONE (15:12)
--- NOTE | 2018-01-06 16:16 | CT ---
PROCEDURE: CT Abdomen and Pelvis with oral and IV contrast. HISTORY: abdominal pain r/o diverticulitis/abscess COMPARISON: CT abdomen and pelvis without contrast performed 12/21/17 TECHNIQUE: Contiguous axial images of the abdomen and pelvis. Oral and IV contrast was administered. Coronal and Sagittal reformats generated and reviewed. Contrast dose: 100 cc Visipaque 320 Radiation dose: Total exam DLP = 842.58 mGy-cm. This CT exam was performed using one or more of the following dose reduction techniques: Automated exposure control, adjustment of the mA and/or kV according to patient size, and/or use of iterative reconstruction technique. FINDINGS: LOWER THORAX: Mild bibasilar atelectasis. No visible pleural effusion or pneumothorax. Partially imaged AICD lead. Coronary artery calcifications. Small hiatal hernia/distal esophageal wall thickening. LIVER: Too small to characterize 9 mm subcapsular left hepatic lobe hypodensity ; statistically likely a cyst. GALLBLADDER AND BILE DUCTS: Contracted gallbladder appears otherwise unremarkable. PANCREAS: Unremarkable. SPLEEN: Unremarkable. ADRENALS: Unremarkable. KIDNEYS AND URETERS: The kidneys enhance symmetrically. No hydronephrosis or obstructing renal calculus. Nonobstructing bilateral renal calculi. Too small to characterize bilateral renal hypodensities; statistically likely cysts. BLADDER: Thick-walled under distended urinary bladder which contains 2 depending calcifications, possibly calculi. REPRODUCTIVE: The prostate gland measures approximately 3.8 x 4.6 cm and contains calcifications. APPENDIX: The appendix appears within normal limits of caliber. No secondary signs of acute appendicitis. BOWEL: The stomach is nondistended. The bowel loops appear within normal limits of caliber without evidence of intestinal obstruction. Extensive diverticulosis. Associated wall thickening and inflammatory changes are evident within the left colon consistent with acute diverticulitis. PERITONEUM: No significant free fluid. No definite free air. LYMPH NODES: No bulky lymphadenopathy identified. VASCULATURE: No aortic aneurysm. BONES: Degenerative changes. There is decreased mineralization of the bones, most likely representing osteoporosis. Rarely, underlying metabolic bone disease or infiltrative lesions can also have this appearance. OTHER FINDINGS: Fat containing left inguinal hernia. IMPRESSION: Evidence of acute diverticulitis involving the mid left colon. Thick-walled under distended urinary bladder which contains tiny calcifications, likely calculi. Borderline enlarged prostate gland. Recommend correlation with PSA. Nonobstructing bilateral renal calculi. Too small to characterize bilateral renal hypodensities; statistically likely cysts. Fat containing left inguinal hernia. Degenerative changes. There is decreased mineralization of the bones, most likely representing osteoporosis. Rarely, underlying metabolic bone disease or infiltrative lesions can also have this appearance. Additional findings as above.
[2018-01-06] MEDS: metroNIDAZOLE IV 250mg/50 ml 250 MG/50 ML BAG IVPB SCH (16:51)
--- NOTE | 2018-01-06 16:57 | CP.PCM.PN ---
Subjective - Date & Time of Evaluation Date of Evaluation: 01/06/18 Time of Evaluation: 16:57 - Subjective Subjective: pt is sen and examined, follow up consult is dictated #[id number] hd in am acute diverticulitis Objective - Vital Signs/Intake and Output Vital Signs (last 24 hours): Temp Pulse Resp BP Pulse Ox 98.0 F 73 20 159/76 H 99 01/06/18 15:00 01/06/18 15:00 01/06/18 15:00 01/06/18 15:00 01/06/18 15:00 Intake and Output: 01/06/18 01/06/18 06:59 18:59 Intake Total 350 700 Balance 350 700 - Medications Medications: Current Medications Acetaminophen (Tylenol 325mg Tab) 650 mg PO Q6 PRN PRN Reason: Pain, moderate (4-7) Aspirin (Aspirin Chewable) 81 mg PO DAILY [facility] Last Admin: 01/06/18 09:23 Dose: 81 mg Epoetin Omi (Procrit) 4,000 unit IV TTS [facility] Stop: 01/07/18 10:01 Last Admin: 01/05/18 12:44 Dose: 4,000 unit Famotidine (Pepcid) 20 mg PO DAILY [facility] Last Admin: 01/06/18 09:23 Dose: 20 mg Ferrous Sulfate (Feosol) 325 mg PO DAILY [facility] Last Admin: 01/06/18 09:23 Dose: 325 mg Finasteride (Proscar) 5 mg PO HS [facility] Last Admin: 01/05/18 21:43 Dose: 5 mg Heparin Sodium (Porcine) (Heparin) 5,000 units SC Q8 [facility] Last Admin: 01/06/18 13:47 Dose: 5,000 units Hydralazine HCl (Apresoline) 50 mg PO Q8 [facility] Last Admin: 01/06/18 13:46 Dose: 50 mg Ceftriaxone Sodium 1 gm/ (Sodium Chloride) 100 mls @ 100 mls/hr IVPB DAILY [facility] PRN Reason: Protocol Last Admin: 01/06/18 09:22 Dose: 100 mls/hr Metronidazole (Flagyl) 250 mg in 50 mls @ 100 mls/hr IVPB Q8H [facility] PRN Reason: Protocol Stop: 01/11/18 16:01 Last Admin: 01/06/18 16:51 Dose: 100 mls/hr Metoprolol Succinate (Toprol Xl) 50 mg PO DAILY [facility] Last Admin: 01/06/18 09:23 Dose: 50 mg Paricalcitol (Zemplar) 2 mcg IV TTS [facility] Stop: 01/07/18 10:01 Last Admin: 01/05/18 12:45 Dose: 2 mcg Rosuvastatin Calcium (Crestor) 5 mg PO HS [facility] Last Admin: 01/05/18 21:43 Dose: 5 mg Sevelamer Carbonate (Renvela) 2.4 gm PO TIDCC [facility] Last Admin: 01/06/18 16:52 Dose: Not Given Vancomycin HCl (Vancocin (Oral Or Rectal Use)) 250 mg PO Q8H [facility] PRN Reason: Protocol Vitamin B Complex/Vit C/Folic Acid (Nephro-Benoit) 1 tab PO DAILY [facility] Last Admin: 01/06/18 09:23 Dose: 1 tab - Labs Labs: 01/04/18 10:36 01/04/18 10:36
[2018-01-06] MEDS: Dextrose 5%/0.45% NS 1,000 ML IV SCH (17:36)
[2018-01-06] MEDS: Vancomycin 125 MG/5 ML SOLN (ORAL/RECTAL) PO SCH (17:37)
--- NOTE | 2018-01-06 17:47 | PN ---
DATE: LOCATION: [facility], bed B. SUBJECTIVE: This is a 72-year-old male seen and examined in rounds without significant clinical changes, on hemodialysis with persistent complaint of left-sided abdominal pain, but mildly less than before. The entire chart is reviewed including but not limited to the most recent lab and radiology study results, current and the previous medication list, current and the previous medical events. Case discussed with the staff at length. PHYSICAL EXAMINATION GENERAL: A 72-year-old male awake, alert, oriented, complaining of abdominal pain. VITAL SIGNS: Afebrile, with pulse of 72, respiratory rate 20 to 22, blood pressure 144/70. HEENT: Showed dry oral mucous membrane. Nonicteric sclerae. LUNGS: Few scattered crepitation, decreased air entry at bases. HEART: Positive S1 and S2. ABDOMEN: Soft with mild distention and tenderness. No mass or organomegaly. No rebound tenderness or guarding. RECTAL: The patient refused. EXTREMITIES: With mild edematous changes. No clubbing or cyanosis. NEUROLOGIC: No reported new neurological deficits, sensory or motor. LABORATORY DATA: Today's lab is still pending, but the latest amylase level is 132, lipase is 350, with increased CEA level 6.9 and CA19-9 244.4. Initial abdominal ultrasound report indicative of distended gallbladder with small stones, but no duct dilation. IMPRESSION: 1. Acute pancreatitis. 2. Diverticulosis with recurrent diverticulitis most likely. 3. Elevated CEA level as well as CA19-9. The patient will need MRCP for further evaluation of the pancreas. 4. Known history of but not limited to hypertension, hyperlipidemia, chronic renal failure, on hemodialysis. 5. Known history of cardiac arrhythmias, status post pacemaker insertion. 6. Reported new episodes of diarrhea, most likely secondary to his diverticulitis. SUGGESTIONS: 1. Continue current management. 2. Flagyl IV once a day. 3. Vancomycin p.o. once a day. 4. Repeat full stool workup. 5. MRCP. 6. Further recommendations to follow and if the patient needs repeat colonoscopy due to the elevated CEA level, we will schedule him, otherwise close observation. Frank Chamorro MD
--- NOTE | 2018-01-06 23:07 | CP.PCM.PN ---
Subjective - Date & Time of Evaluation Date of Evaluation: 01/06/18 Time of Evaluation: 18:10 - Subjective Subjective: Pt seen and examined today, c/o abdominal pain, CT abdomen and pelvis positive fir acute diverticulitis, pt is afebrile, no shortness of breath Objective - Vital Signs/Intake and Output Vital Signs (last 24 hours): Temp Pulse Resp BP Pulse Ox 98.0 F 73 20 159/76 H 99 01/06/18 15:00 01/06/18 15:00 01/06/18 15:00 01/06/18 15:00 01/06/18 15:00 Intake and Output: 01/06/18 01/07/18 18:59 06:59 Intake Total 700 130 Balance 700 130 - Medications Medications: Current Medications Acetaminophen (Tylenol 325mg Tab) 650 mg PO Q6 PRN PRN Reason: Pain, moderate (4-7) Aspirin (Aspirin Chewable) 81 mg PO DAILY [facility] Last Admin: 01/06/18 09:23 Dose: 81 mg Epoetin Omi (Procrit) 4,000 unit IV TTS [facility] Stop: 01/07/18 10:01 Last Admin: 01/05/18 12:44 Dose: 4,000 unit Famotidine (Pepcid) 20 mg PO DAILY [facility] Last Admin: 01/06/18 09:23 Dose: 20 mg Ferrous Sulfate (Feosol) 325 mg PO DAILY [facility] Last Admin: 01/06/18 09:23 Dose: 325 mg Finasteride (Proscar) 5 mg PO HS [facility] Last Admin: 01/06/18 22:09 Dose: 5 mg Hydralazine HCl (Apresoline) 50 mg PO Q8 [facility] Last Admin: 01/06/18 22:08 Dose: 50 mg Ceftriaxone Sodium 1 gm/ (Sodium Chloride) 100 mls @ 100 mls/hr IVPB DAILY [facility] PRN Reason: Protocol Last Admin: 01/06/18 09:22 Dose: 100 mls/hr Metronidazole (Flagyl) 250 mg in 50 mls @ 100 mls/hr IVPB Q8H [facility] PRN Reason: Protocol Stop: 01/11/18 16:01 Last Admin: 01/06/18 16:51 Dose: 100 mls/hr Dextrose/Sodium Chloride (Dextrose 5%/0.45% Ns 1000 Ml) 1,000 mls @ 50 mls/hr IV .Q20H [facility] Last Admin: 01/06/18 17:36 Dose: 50 mls/hr Metoprolol Succinate (Toprol Xl) 50 mg PO DAILY [facility] Last Admin: 01/06/18 09:23 Dose: 50 mg Paricalcitol (Zemplar) 2 mcg IV TTS [facility] Stop: 01/07/18 10:01 Last Admin: 01/05/18 12:45 Dose: 2 mcg Rosuvastatin Calcium (Crestor) 5 mg PO HS [facility] Last Admin: 01/06/18 22:09 Dose: 5 mg Sevelamer Carbonate (Renvela) 2.4 gm PO TIDCC [facility] Last Admin: 01/06/18 16:52 Dose: Not Given Vancomycin HCl (Vancocin (Oral Or Rectal Use)) 250 mg PO Q8H [facility] PRN Reason: Protocol Last Admin: 01/06/18 17:37 Dose: 250 mg Vitamin B Complex/Vit C/Folic Acid (Nephro-Benoit) 1 tab PO DAILY [facility] Last Admin: 01/06/18 09:23 Dose: 1 tab - Labs Labs: 01/04/18 10:36 01/04/18 10:36 - Constitutional Appears: No Acute Distress - Head Exam Head Exam: ATRAUMATIC, NORMAL INSPECTION, NORMOCEPHALIC - ENT Exam ENT Exam: Mucous Membranes Moist, Normal Exam - Respiratory Exam Respiratory Exam: Clear to Ausculation Bilateral, NORMAL BREATHING PATTERN - Cardiovascular Exam Cardiovascular Exam: REGULAR RHYTHM, +S1, +S2. absent: Murmur - GI/Abdominal Exam GI & Abdominal Exam: Soft, Normal Bowel Sounds. absent: Tenderness Assessment and Plan (1) Abdominal pain Status: Acute (2) ESRD needing dialysis Status: Acute (3) CKD (chronic kidney disease) Status: Acute (4) Diabetic ulcer of left fifth toe Status: Acute
[2018-01-07] MEDS: Vancomycin 125 MG/5 ML SOLN (ORAL/RECTAL) PO SCH ×3 (01:58→18:00)
[2018-01-07] MEDS: Sevelamer Carb 2.4 gm/Packet PO SCH ×3 (08:00→17:00)
[2018-01-07] MEDS: metroNIDAZOLE IV 250mg/50 ml 250 MG/50 ML BAG IVPB SCH ×3 (08:00→16:00)
[2018-01-07] MEDS ORDERED: metroNIDAZOLE IV 500 mg/100 ml 500 MG/100 ML BAG IVPB SCH (10:00)
[2018-01-07] MEDS: Multivitamin Vitamin B Complex (Nephro-Vite) Tab PO SCH (10:08)
[2018-01-07] MEDS: Metoprolol Succinate 50 mg XL Tab PO SCH (10:15)
--- NOTE | 2018-01-07 11:25 | PN ---
DATE: LOCATION: [facility], bed B. SUBJECTIVE: This is a 72-year-old male seen and examined early in rounds with intermittent periods of abdominal pain in the left side of the abdomen for which I ordered CAT scan of the abdomen and pelvis to be done, reported to be positive for acute diverticulitis. The patient also has mild episode of dyspepsia but nausea. No vomiting. No chills or fever. No reported active bleeding or significant chest pain, palpitation, or complaint of significant shortness of breath. The entire chart is reviewed including, but not limited to, the most recent lab and radiology study results, current and the previous medication list, current and the previous medical events. Case discussed at length with the staff. Today's lab results are still pending; however, the most recent lab results showed amylase still elevated to 132, lipase 360, with increased CEA and increased CA 19-9. No reported pancreatic abnormalities by the CAT scan or the ultrasound. PHYSICAL EXAMINATION GENERAL: A 72-year-old male. VITAL SIGNS: Afebrile, with pulse of 70, respiratory rate of 20 to 22, blood pressure of 152/78. HEENT: Showed pale, dry oral mucous membrane. Nonicteric sclerae. LUNGS: Few scattered crepitation. Decreased air entry at bases. HEART: Positive S1 and S2. ABDOMEN: No mass or organomegaly. No rebound tenderness or guarding. Positive tenderness especially in the left lower abdominal wall with left inguinal hernia. EXTREMITIES: Without significant clubbing, cyanosis, but mild edematous changes. NEUROLOGIC: No reported new focal neurological deficits, sensory or motor. No reported new focal deficits. Peripheral pulses are present bilaterally but weak. It has to be mentioned that the last colonoscopy done was 12/26/2017 indicative of diverticulosis, mild colitis with internal hemorrhoids as well as spastic colon. IMPRESSION: 1. Diverticulosis with acute diverticulitis. 2. Acute pancreatitis of unclear etiology that could be hyperlipidemia induced. 3. Re-exacerbation of peptic ulcer disease. 4. Chronic renal failure, on hemodialysis. 5. Anemia, most likely secondary to the above. 6. Known history but not limited to hypertension, hyperlipidemia. 7. Cardiac arrhythmias with status post pacemaker insertion. SUGGESTIONS: 1. Agree with your plan. 2. Flagyl IV with vancomycin p.o. 3. Keep the patient n.p.o. for now until his acute episode is subsided as well as recently reported diarrhea, then advance to liquid and full liquid diet. 4. Further recommendations to follow. Repeat stools for C. difficile is advised. Frank Chamorro MD [facility] # [id number]
[2018-01-07] MEDS: Dextrose 5%/0.45% NS 1,000 ML IV SCH (13:28)
--- NOTE | 2018-01-07 14:20 | CP.PCM.PN ---
Subjective - Date & Time of Evaluation Date of Evaluation: 01/07/18 Time of Evaluation: 14:19 - Subjective Subjective: pt is seen and examined, follow up consult is dictated #[id number] for hd today Objective - Vital Signs/Intake and Output Vital Signs (last 24 hours): Temp Pulse Resp BP Pulse Ox 98 F 76 20 157/68 H 97 01/07/18 08:00 01/07/18 08:00 01/07/18 08:00 01/07/18 08:00 01/07/18 08:00 Intake and Output: 01/07/18 01/07/18 06:59 18:59 Intake Total 130 110 Balance 130 110 - Medications Medications: Current Medications Acetaminophen (Tylenol 325mg Tab) 650 mg PO Q6 PRN PRN Reason: Pain, moderate (4-7) Aspirin (Aspirin Chewable) 81 mg PO DAILY [facility] Last Admin: 01/07/18 10:06 Dose: 81 mg Famotidine (Pepcid) 20 mg PO DAILY [facility] Last Admin: 01/07/18 10:09 Dose: 20 mg Ferrous Sulfate (Feosol) 325 mg PO DAILY [facility] Last Admin: 01/07/18 10:06 Dose: 325 mg Finasteride (Proscar) 5 mg PO HS [facility] Last Admin: 01/06/18 22:09 Dose: 5 mg Hydralazine HCl (Apresoline) 50 mg PO Q8 [facility] Last Admin: 01/07/18 13:07 Dose: 50 mg Ceftriaxone Sodium 1 gm/ (Sodium Chloride) 100 mls @ 100 mls/hr IVPB DAILY [facility] PRN Reason: Protocol Last Admin: 01/07/18 10:09 Dose: 100 mls/hr Metronidazole (Flagyl) 250 mg in 50 mls @ 100 mls/hr IVPB Q8H [facility] PRN Reason: Protocol Stop: 01/11/18 16:01 Last Admin: 01/07/18 08:00 Dose: 100 mls/hr Dextrose/Sodium Chloride (Dextrose 5%/0.45% Ns 1000 Ml) 1,000 mls @ 50 mls/hr IV .Q20H [facility] Last Admin: 01/07/18 13:28 Dose: 50 mls/hr Metoprolol Succinate (Toprol Xl) 50 mg PO DAILY [facility] Last Admin: 01/07/18 10:15 Dose: 50 mg Rosuvastatin Calcium (Crestor) 5 mg PO HS [facility] Last Admin: 01/06/18 22:09 Dose: 5 mg Sevelamer Carbonate (Renvela) 2.4 gm PO TIDCC [facility] Last Admin: 01/07/18 12:00 Dose: 2.4 gm Vancomycin HCl (Vancocin (Oral Or Rectal Use)) 250 mg PO Q8H [facility] PRN Reason: Protocol Last Admin: 01/07/18 10:11 Dose: 250 mg Vitamin B Complex/Vit C/Folic Acid (Nephro-Benoit) 1 tab PO DAILY [facility] Last Admin: 01/07/18 10:08 Dose: 1 tab - Labs Labs: 01/04/18 10:36 01/04/18 10:36
--- NOTE | 2018-01-08 00:47 | PN ---
DATE: SUBJECTIVE: The patient is on but he has left lower quadrant abdominal pain. He denies any nausea or vomiting. He is hemodynamically stable. His blood pressure is somewhat elevated. He is feeling better. He denies any chest pain. He denies any change in bowel habits. He denies any bleeding per rectum. PHYSICAL EXAMINATION: VITAL SIGNS: Blood pressure is 175/80, pulse 77, respiratory rate 18, temperature 98. LUNGS: Clear. CVS: S1, S2 regular. ABDOMEN: Left lower quadrant tenderness. SERVICE TESTER: Awake, alert and oriented x3. ASSESSMENT: 1. Acute diverticulitis, on antibiotics. Continue antibiotics. 2. Chronic kidney disease, on hemodialysis. 3. Uncontrolled hypertension. We will increase the patient's blood pressure medication. 4. End-stage renal disease, on hemodialysis, continue current medications. Emilio Israel MD
[2018-01-08] MEDS: Sevelamer Carb 2.4 gm/Packet PO SCH ×3 (09:00→17:11)
[2018-01-08] MEDS: Multivitamin Vitamin B Complex (Nephro-Vite) Tab PO SCH (10:27)
[2018-01-08] MEDS: Metoprolol Succinate 50 mg XL Tab PO SCH (10:27)
[2018-01-08] MEDS: Dextrose 5%/0.45% NS 1,000 ML IV SCH (10:28)
--- NOTE | 2018-01-08 11:57 | PN ---
DATE: LOCATION: 360 SUBJECTIVE: This is a 72-year-old male seen and examined in rounds, appears to be awake, alert, and oriented. Post CAT scan yesterday indicative of acute diverticulitis, mainly in the left side of the colon. Rest of the results is seen with borderline enlarged prostate. The patient tolerated liquid diet well yesterday and asked for solid food today. Denied any abdominal pain, any diarrhea, but 2 small bowel movements late yesterday. No chills or fever and no reported nausea or vomiting this morning. No reported significant complaint of shortness of breath. The entire chart is reviewed including, but not limited to, most recent lab and radiology study results, current and previous medication list, current and previous medical events. Today's blood glucose level, 113. The latest lipase and amylase levels are seen. PHYSICAL EXAMINATION: GENERAL: A 72-year-old male, awake, alert, and oriented. VITAL SIGNS: Afebrile, with heart rate of 82, respiratory rate of 20 to 22, blood pressure 142/62. HEENT: Shows pale, dry oral mucous membrane. Nonicteric sclerae. LUNGS: Few scattered crepitations. Breathing sounds are present bilaterally. HEART: Positive S1 and S2. ABDOMEN: No mass or organomegaly. No rebound tenderness or guarding, but mild mid epigastric as well as left lower quadrant mild tenderness. EXTREMITIES: Without significant edema, clubbing, or cyanosis. NEUROLOGIC: No new reported neurological deficits, sensory or motor. No reported new focal deficits. IMPRESSION: 1. Diverticulosis with acute episode of diverticulitis. 2. Peptic ulcer disease. 3. New onset of acute pancreatitis. 4. Abnormal CAT scan of the abdomen and pelvis including enlarged prostate, bilateral renal stones. 5. Known history of chronic renal failure, on hemodialysis. 6. Anemia most likely secondary to above. 7. Known history of hyperlipidemia, which could be a cause for his acute pancreatitis as well as known history of hypertension. 8. Cardiac arrhythmia with status post pacemaker insertion before. SUGGESTIONS: 1. Agree with your plan. 2. Advance diet, patient is more stable clinically. 3. Lipid profile. 4. Follow up serum lipase and amylase level.. 5. No citrus, no seeds. 6. If the patient is stable clinically, biochemically, then may discharge home post dialysis at a.m. as per the primary MD. Otherwise, close observation to follow. Frank Chamorro MD [facility] # [id number]
--- NOTE | 2018-01-08 19:44 | CP.PCM.PN ---
Subjective - Date & Time of Evaluation Date of Evaluation: 01/08/18 Time of Evaluation: 19:43 - Subjective Subjective: pt is seen and examined, follow up consult is dictated #[id number] Objective - Vital Signs/Intake and Output Vital Signs (last 24 hours): Temp Pulse Resp BP Pulse Ox 97.9 F 72 20 160/65 H 98 01/08/18 15:00 01/08/18 15:00 01/08/18 15:00 01/08/18 15:00 01/08/18 15:00 Intake and Output: 01/08/18 01/09/18 18:59 06:59 Intake Total 1490 Balance 1490 - Medications Medications: Current Medications Acetaminophen (Tylenol 325mg Tab) 650 mg PO Q6 PRN PRN Reason: Pain, moderate (4-7) Aspirin (Aspirin Chewable) 81 mg PO DAILY [facility] Last Admin: 01/08/18 10:27 Dose: 81 mg Famotidine (Pepcid) 20 mg PO DAILY [facility] Last Admin: 01/08/18 10:27 Dose: 20 mg Ferrous Sulfate (Feosol) 325 mg PO DAILY [facility] Last Admin: 01/08/18 10:27 Dose: 325 mg Finasteride (Proscar) 5 mg PO HS [facility] Last Admin: 01/06/18 22:09 Dose: 5 mg Hydralazine HCl (Apresoline) 100 mg PO Q8 [facility] Last Admin: 01/08/18 15:00 Dose: 100 mg Ceftriaxone Sodium 1 gm/ (Sodium Chloride) 100 mls @ 100 mls/hr IVPB DAILY [facility] PRN Reason: Protocol Last Admin: 01/08/18 10:29 Dose: 100 mls/hr Metoprolol Succinate (Toprol Xl) 50 mg PO DAILY [facility] Last Admin: 01/08/18 10:27 Dose: 50 mg Rosuvastatin Calcium (Crestor) 5 mg PO HS [facility] Last Admin: 01/07/18 21:25 Dose: 5 mg Sevelamer Carbonate (Renvela) 2.4 gm PO TIDCC [facility] Last Admin: 01/08/18 17:11 Dose: 2.4 gm Vitamin B Complex/Vit C/Folic Acid (Nephro-Benoit) 1 tab PO DAILY [facility] Last Admin: 01/08/18 10:27 Dose: 1 tab - Labs Labs: 01/04/18 10:36 01/04/18 10:36
--- NOTE | 2018-01-08 22:20 | CP.PCM.PN ---
Subjective - Date & Time of Evaluation Date of Evaluation: 01/08/18 Time of Evaluation: 17:45 - Subjective Subjective: Pt is seen and evaluated during routine follow up rounds today, He is doing well ,decreased LLQ pain,no fever, tolerating diet Objective - Vital Signs/Intake and Output Vital Signs (last 24 hours): Temp Pulse Resp BP Pulse Ox 97.9 F 72 20 160/65 H 98 01/08/18 15:00 01/08/18 15:00 01/08/18 15:00 01/08/18 15:00 01/08/18 15:00 Intake and Output: 01/08/18 01/09/18 18:59 06:59 Intake Total 1490 50 Balance 1490 50 - Medications Medications: Current Medications Acetaminophen (Tylenol 325mg Tab) 650 mg PO Q6 PRN PRN Reason: Pain, moderate (4-7) Aspirin (Aspirin Chewable) 81 mg PO DAILY [facility] Last Admin: 01/08/18 10:27 Dose: 81 mg Famotidine (Pepcid) 20 mg PO DAILY [facility] Last Admin: 01/08/18 10:27 Dose: 20 mg Ferrous Sulfate (Feosol) 325 mg PO DAILY [facility] Last Admin: 01/08/18 10:27 Dose: 325 mg Finasteride (Proscar) 5 mg PO HS [facility] Last Admin: 01/08/18 21:35 Dose: 5 mg Hydralazine HCl (Apresoline) 100 mg PO Q8 [facility] Last Admin: 01/08/18 21:35 Dose: 100 mg Ceftriaxone Sodium 1 gm/ (Sodium Chloride) 100 mls @ 100 mls/hr IVPB DAILY [facility] PRN Reason: Protocol Last Admin: 01/08/18 10:29 Dose: 100 mls/hr Metoprolol Succinate (Toprol Xl) 50 mg PO DAILY [facility] Last Admin: 01/08/18 10:27 Dose: 50 mg Rosuvastatin Calcium (Crestor) 5 mg PO HS [facility] Last Admin: 01/08/18 21:35 Dose: 5 mg Sevelamer Carbonate (Renvela) 2.4 gm PO TIDCC [facility] Last Admin: 01/08/18 17:11 Dose: 2.4 gm Vitamin B Complex/Vit C/Folic Acid (Nephro-Benoit) 1 tab PO DAILY [facility] Last Admin: 01/08/18 10:27 Dose: 1 tab - Labs Labs: 01/04/18 10:36 01/04/18 10:36 Assessment and Plan (1) Abdominal pain Status: Acute (2) ESRD needing dialysis Status: Acute (3) CKD (chronic kidney disease) Status: Acute (4) Diabetic ulcer of left fifth toe Status: Acute
[2018-01-09 07:42] LABS: BASO # 0.1 K/uL (0.0-0.2); BASO % 1.2 % (0.0-2.0); EOS # 0.2 K/uL (0.0-0.7); EOS % 3.7 % (0.0-4.0); LYMPH # 1.1 K/uL (1.0-4.3); LYMPH % 22.9 % (20.0-40.0); MEAN CELL VOLUME 96.7 fL (80.0-94.0); MEAN CORPUSCULAR HEMOGLOBIN 32.3 pg (27.0-31.0); MEAN CORPUSCULAR HGB CONC 33.4 g/dL (33.0-37.0); MEAN PLATELET VOLUME 8.3 fL (7.2-11.7); MONO # 0.8 K/uL (0.0-0.8); MONO % 17.1 % (0.0-10.0); NEUT # 2.6 K/uL (1.8-7.0); NEUT % 55.1 % (50.0-75.0); RBC 3.1 Mil/uL (4.40-5.90); RED CELL DISTRIBUTION WIDTH 16.2 % (11.5-14.5); WHITE BLOOD COUNT 4.6 K/uL (4.8-10.8)
[2018-01-09 07:44] LABS: INR 1.1; PROTHROMBIN TIME 12.3 SECONDS (9.7-12.2)
--- NOTE | 2018-01-09 07:55 | PN ---
DATE: 01/07/2018. FOLLOWUP RENAL CONSULTATION LOCATION: Room 360, bed B. REQUESTED BY; Dr. Emilio Israel. REASON FOR RENAL CONSULTATION: End-stage renal disease for continuation with hemodialysis. HISTORY OF PRESENT ILLNESS: Mr. Richards is a 72 years old elderly very pleasant male with a history of longstanding hypertension, diabetes, end-stage renal disease, hyperlipidemia, BPH, status post pacemaker, status post left BKA, diverticulosis was admitted with abdominal pain on and off for the last 1 month and the patient was recently discharged from the [facility] after treating for the abdominal pain, left lower quadrant and also nausea and now the patient was readmitted after few days with severe abdominal pain and increased WBC count. CT scan of the abdomen and pelvis is consistent with acute diverticulitis. The patient is on Rocephin and Flagyl. The patient is complaining of loose bowel movement x3 this morning. Denies any blood in the stool. Denies any fever or cough. Less abdominal pain today. No shortness of breath. PHYSICAL EXAMINATION: VITAL SIGNS: As follows; blood pressure 157/68, pulse 70, respiration 20, temperature 98, saturation 97%. Height 6 feet, weight is 89.5 kg. GENERAL: Mr. Richards is a 72 years old elderly male, moderately built, moderately nourished, not in acute distress. HEENT: Pupils normal, reactive to light and accommodation. Conjunctivae pink. Sclerae anicteric. Tongue is moist and trachea is midline. LUNGS: Symmetric on both sides. Bilateral breath sounds present. Clear on auscultation. CVS: Powell at the fifth intercostal space, midclavicular line. S1 and S2 audible. No murmur or gallop. ABDOMEN: Normal in appearance, slightly distended and soft, tympanic. Mild left lower quadrant tenderness. No guarding, no rigidity. No hepatosplenomegaly. 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 Nonfocal neuro examination. Cranial nerves II through XII grossly intact. Sensory and motor system is within normal limits. EXTREMITIES: No cyanosis, no clubbing, no edema on the right side status post left BKA. CURRENT MEDICATIONS: Include as follows; hydralazine 50 mg p.o. q. 8 hours, aspirin 81 mg daily, Rocephin 1 gm daily, Crestor 5 mg at bedtime, D5 normal saline at 50 mL/hour, Feosol 325 mg p.o. daily, Nephro-Benoit 1 tablet daily, Pepcid 20 mg p.o. daily, Proscar 5 mg p.o. at bedtime, Renvela 2.4 gm p.o. t.i.d., metoprolol 50 mg p.o. daily, Tylenol and vancomycin 250 mg p.o. q. 8 hours. LABORATORY DATA: No new labs are available. ASSESSMENT: In summary, Mr. Richards is a 72 years old elderly male with a history of longstanding hypertension, diabetes, hyperlipidemia, benign prostatic hypertrophy, diverticulosis, status post left below-knee amputation was admitted x3 to [facility] and [facility] this is the third admission in 1 month with similar complaints found to have acute diverticulitis from the CT scan of the abdomen and pelvis, which was done on yesterday 01/06/2018. 1. End-stage renal disease. Continue hemodialysis three times a week, Tuesday, , Tuesday. 2. Acute diverticulitis. Continue antibiotics as per ID recommendations. Continue Rocephin and p.o. vancomycin. 3. Hypertension, blood pressure is stable. 4. Diabetes. 5. Below-knee amputation. PLAN: Continue Flomax and Proscar. We will follow with you. The patient was seen and examined during dialysis and UF goal is about 2.5 liters to 3 liters as tolerated. Thank you for allowing me to participate in your patient's care. Blanca Thakkar MD
--- NOTE | 2018-01-09 07:59 | PN ---
DATE: 01/08/2018 FOLLOWUP RENAL CONSULTATION LOCATION: The patient is located in room 360, bed B. REQUESTED BY: Emilio Israel MD REASON FOR FOLLOWUP: End-stage renal disease, for continuation of the hemodialysis. HISTORY OF PRESENT ILLNESS: Mr. Richards is 72 years old elderly very pleasant male with a past medical history significant for longstanding hypertension, diabetes, end-stage renal disease, hyperlipidemia, BPH, diverticulosis, status post left BKA who was admitted with recurrent abdominal pain. The patient was found to have elevated WBC count, and CAT scan of the abdomen and pelvis consistent with acute diverticulitis. The patient is on IV antibiotics. The patient is feeling better, not in distress. No chest pain or palpitation. No fever. No cough. No abdominal pain today. No shortness of breath. PHYSICAL EXAMINATION: VITAL SIGNS: As follows: Blood pressure 160/65, pulse 72, respirations 20, temperature 97.9, saturation 98%. Height 6 feet. Post dialysis yesterday, his weight is 86.3 kg. GENERAL: Mr. Richards is a 72 years old elderly male, moderately built, moderate nourished, not in distress. HEENT: Pupils normal and reactive to light and accommodation. Conjunctiva pink. Sclerae anicteric. Tongue is moist, Trachea is midline. LUNGS: Symmetric on both sides. Bilateral breath sounds present. Clear on auscultation. CVS: [place] at the fifth intercostal space, midclavicular line. S1, S2 audible. No murmur or gallop. ABDOMEN: Normal in appearance. Soft, tympanic. No guarding. No rigidity. No hepatosplenomegaly. CONDITIONER TUMBLER: The patient is alert, awake, and oriented x3. Nonfocal neuro examination. Cranial nerves II through XII grossly intact. Sensory and motor system is within normal limits. EXTREMITIES: No cyanosis, no clubbing, no edema on the right side; status post left BKA with the prosthesis on the left side. MEDICATIONS: His current medications include as follows, hydralazine 100 mg p.o. q.8 hours, aspirin 81 mg daily, Rocephin 1 gm daily, Crestor 5 mg at bedtime, Feosol 325 mg p.o. daily, Nephro-Benoit 1 tablet daily, Pepcid 20 mg daily, Proscar 5 mg p.o. at bedtime, Renvela 2.4 gm p.o. t.i.d., Toprol XL 50 mg p.o. daily, Tylenol 650 mg p.o. q.6 hours. LABORATORY DATA: No new labs are available. Accu-Cheks as of 01/07/2018, 113. IMPRESSION: In summary, Mr. Richards is a 72 years old elderly male with a history of hypertension, diabetes, hyperlipidemia, benign prostatic hyperplasia, status post pacemaker, status post left below knee amputation, diverticulosis who was admitted with abdominal pain and elevated WBC count and CAT scan of the abdomen and pelvis consistent with acute diverticulitis, on IV Rocephin. 1. End-stage renal disease. Continue hemodialysis three times a week, Tuesday, , Tuesday. 2. Hypertension. Blood pressure is stable. Continue his current medications including hydralazine and metoprolol. 3. Diabetes. Sugars are under control. 4. Acute diverticulitis. Continue Rocephin 1 gm daily as per ID recommendations. Repeat CBC, BMP in a.m. and phosphorus level. We will follow with you. Thank you for allowing me to participate in your patient's care. Blanca Thakkar MD
--- NOTE | 2018-01-09 07:59 | PN ---
DATE: 01/06/2018 FOLLOWUP RENAL CONSULTATION LOCATION: The patient is located in room 360, bed B. REQUESTED BY: Emilio Israel MD REASON FOR FOLLOWUP: End-stage renal disease, continuation of hemodialysis, abdominal pain, rule out diverticulitis. HISTORY OF PRESENT ILLNESS: Mr. Richards is 72 years old elderly male with a past medical history significant for longstanding hypertension, diabetes, hyperlipidemia, end-stage renal disease, BPH, status post left BKA who was admitted with chief complaints of abdominal pain for the last 1 month. The patient was initially admitted to [facility], subsequently discharged home and admitted to [facility] about 2 weeks ago and discharged home last week and now is readmitted with chief complaints of abdominal pain, moderate to severe in nature and also elevated WBC count. Denies any nausea, vomiting, or diarrhea today. Denies any dysuria or frequency. PHYSICAL EXAMINATION: VITAL SIGNS: As follows: Blood pressure 159/76, pulse 73, respirations 20, temperature 98, saturation 99%. Height 6 feet 1 inch, weight is 197 pounds. GENERAL: On physical exam, Mr. Richards is 72 years old elderly male, moderately built, moderate nourished, not in acute distress. HEENT: Pupils normal and reactive to light and accommodation. Conjunctivae pink. Sclerae anicteric. Tongue is moist and trachea is midline. LUNGS: Symmetric on both sides. Bilateral breath sounds present. Clear on auscultation. CVS: [place] at the fifth intercostal space midclavicular line. S1, S2 audible. No murmur, no gallop. ABDOMEN: Normal in appearance, soft, tympanic. Slightly distended. Left lower quadrant tenderness present. No guarding. No rigidity. 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 Nonfocal neuro examination. Cranial nerves II through XII grossly intact. Sensory and motor system is within normal limits. Extremities: No cyanosis, no clubbing, no edema on the right leg, status post left BKA. MEDICATIONS: His current medications include as follows, hydralazine 50 mg q.8 hours, aspirin 81 mg daily, Rocephin 1 gm daily, Crestor 5 mg at bedtime, IV fluids of D5 half normal saline at 50 mL/hour, Feosol 325 mg p.o. daily, Flagyl 250 mg IV q.8 hours, Nephro-Benoit 1 tablet daily, Pepcid 20 mg daily, Procrit 4000 units three times a week, Proscar 5 mg at bedtime, Renvela 2.4 gm p.o. t.i.d., Tylenol and vancomycin 250 mg p.o. q.8 hours, Zemplar 2 mcg three times a week. LABORATORY DATA: No new labs are available. As of 01/05/2018, amylase 132, lipase 360, CEA is 6.9, CA 19-[address] of the abdomen and pelvis with contrast as of 01/06/2018, impression, evidence of acute diverticulitis involving the mid left colon, thick walled under distended urinary bladder which contains tiny calcification, likely calculi, borderline enlarged prostate gland, recommend clinical correlation with PSA, non-obstructing bilateral renal, too small to characterize bilateral renal hypodensities fat containing left inguinal hernia, degenerative changes. There is decreased mineralization of the bones, most likely representing osteoporosis. Rarely underlying metabolic bone disease or infiltrated lesions can also have this appearance. IMPRESSION: In summary, Mr. Richards is 72 years old elderly male with hypertension, diabetes, hyperlipidemia, benign prostatic hyperplasia, end-stage renal disease, status post pacemaker, status post left below knee amputation who was admitted with persistent abdominal pain for the last 1 month, now with elevated WBC count, and CT scan of the pelvis consistent with acute diverticulitis. 1. End-stage renal disease. Continue hemodialysis three times a week; Tuesday, , Tuesday. 2. Hypertension. 3. Diabetes. Sugars are under control. Continue his antihypertensive medication. Continue Flagyl and Rocephin. We will schedule for hemodialysis in a.m. We will follow with you. Thank you for allowing me to participate in your patient's care. Blanca Thakkar MD
[2018-01-09] MEDS: Sevelamer Carb 2.4 gm/Packet PO SCH ×3 (08:44→17:58)
[2018-01-09 08:58] LABS: ALB/GLOB RATIO 0.8 (1.0-2.1); ALBUMIN 3.4 g/dL (3.5-5.0); CALCIUM 7.3 mg/dl (8.6-10.4)
[2018-01-09] MEDS: Multivitamin Vitamin B Complex (Nephro-Vite) Tab PO SCH (09:14)
[2018-01-09] MEDS: Metoprolol Succinate 50 mg XL Tab PO SCH (09:14)
[2018-01-09] MEDS ORDERED: Bisacodyl 5mg EC Tab PO ONE (09:52)
--- NOTE | 2018-01-09 19:24 | CP.PCM.PN ---
Subjective - Date & Time of Evaluation Date of Evaluation: 01/09/18 Time of Evaluation: 19:23 - Subjective Subjective: pt is seen and examined, follow up consult is dictated #[id number] for hd in am Objective - Vital Signs/Intake and Output Vital Signs (last 24 hours): Temp Pulse Resp BP Pulse Ox 98 F 75 20 151/71 H 99 01/09/18 15:15 01/09/18 15:15 01/09/18 15:15 01/09/18 15:15 01/09/18 15:15 Intake and Output: 01/09/18 01/10/18 18:59 06:59 Intake Total 460 Balance 460 - Medications Medications: Current Medications Acetaminophen (Tylenol 325mg Tab) 650 mg PO Q6 PRN PRN Reason: Pain, moderate (4-7) Aspirin (Aspirin Chewable) 81 mg PO DAILY [facility] Last Admin: 01/09/18 09:14 Dose: 81 mg Cephalexin Monohydrate (Keflex) 500 mg PO Q12H [facility] PRN Reason: Protocol Docusate Sodium (Colace) 100 mg PO BID [facility] Last Admin: 01/09/18 17:59 Dose: Not Given Famotidine (Pepcid) 20 mg PO DAILY [facility] Last Admin: 01/09/18 09:14 Dose: 20 mg Ferrous Sulfate (Feosol) 325 mg PO DAILY [facility] Last Admin: 01/09/18 09:14 Dose: 325 mg Finasteride (Proscar) 5 mg PO HS [facility] Last Admin: 01/08/18 21:35 Dose: 5 mg Hydralazine HCl (Apresoline) 100 mg PO Q8 [facility] Last Admin: 01/09/18 14:33 Dose: 100 mg Metoprolol Succinate (Toprol Xl) 50 mg PO DAILY [facility] Last Admin: 01/09/18 09:14 Dose: 50 mg Metronidazole (Flagyl) 500 mg PO Q8 [facility] PRN Reason: Protocol Rosuvastatin Calcium (Crestor) 5 mg PO HS [facility] Last Admin: 01/08/18 21:35 Dose: 5 mg Sevelamer Carbonate (Renvela) 2.4 gm PO TIDCC [facility] Last Admin: 01/09/18 17:58 Dose: 2.4 gm Vitamin B Complex/Vit C/Folic Acid (Nephro-Benoit) 1 tab PO DAILY [facility] Last Admin: 01/09/18 09:14 Dose: 1 tab - Labs Labs: 01/09/18 07:30 01/09/18 07:30 PT 12.3 SECONDS (9.7-12.2) H 01/09/18 07:30 INR 1.1 01/09/18 07:30 APTT 32 SECONDS (21-34) 01/09/18 07:30
--- NOTE | 2018-01-09 22:42 | CP.PCM.PN ---
Subjective - Date & Time of Evaluation Date of Evaluation: 01/09/18 Time of Evaluation: 18:00 - Subjective Subjective: Pt seen and examined at bedside, is doing well,decreased LLQ pain,no fever, tolerating diet Objective - Vital Signs/Intake and Output Vital Signs (last 24 hours): Temp Pulse Resp BP Pulse Ox 98 F 75 20 151/71 H 99 01/09/18 15:15 01/09/18 15:15 01/09/18 15:15 01/09/18 15:15 01/09/18 15:15 Intake and Output: 01/09/18 01/10/18 18:59 06:59 Intake Total 460 Balance 460 - Medications Medications: Current Medications Acetaminophen (Tylenol 325mg Tab) 650 mg PO Q6 PRN PRN Reason: Pain, moderate (4-7) Aspirin (Aspirin Chewable) 81 mg PO DAILY [facility] Last Admin: 01/09/18 09:14 Dose: 81 mg Cephalexin Monohydrate (Keflex) 500 mg PO Q12H [facility] PRN Reason: Protocol Docusate Sodium (Colace) 100 mg PO BID [facility] Last Admin: 01/09/18 17:59 Dose: Not Given Famotidine (Pepcid) 20 mg PO DAILY [facility] Last Admin: 01/09/18 09:14 Dose: 20 mg Ferrous Sulfate (Feosol) 325 mg PO DAILY [facility] Last Admin: 01/09/18 09:14 Dose: 325 mg Finasteride (Proscar) 5 mg PO HS [facility] Last Admin: 01/08/18 21:35 Dose: 5 mg Hydralazine HCl (Apresoline) 100 mg PO Q8 [facility] Last Admin: 01/09/18 21:27 Dose: 100 mg Metoprolol Succinate (Toprol Xl) 50 mg PO DAILY [facility] Last Admin: 01/09/18 09:14 Dose: 50 mg Metronidazole (Flagyl) 500 mg PO Q8 [facility] PRN Reason: Protocol Last Admin: 01/09/18 21:27 Dose: 500 mg Rosuvastatin Calcium (Crestor) 5 mg PO HS [facility] Last Admin: 01/09/18 21:27 Dose: 5 mg Sevelamer Carbonate (Renvela) 2.4 gm PO TIDCC [facility] Last Admin: 01/09/18 17:58 Dose: 2.4 gm Vitamin B Complex/Vit C/Folic Acid (Nephro-Benoit) 1 tab PO DAILY [facility] Last Admin: 01/09/18 09:14 Dose: 1 tab - Labs Labs: 01/09/18 07:30 01/09/18 07:30 PT 12.3 SECONDS (9.7-12.2) H 01/09/18 07:30 INR 1.1 01/09/18 07:30 APTT 32 SECONDS (21-34) 01/09/18 07:30 - Constitutional Appears: No Acute Distress - Head Exam Head Exam: ATRAUMATIC, NORMAL INSPECTION, NORMOCEPHALIC - Eye Exam Eye Exam: EOMI, Normal appearance, PERRL Pupil Exam: NORMAL ACCOMODATION, PERRL - Respiratory Exam Respiratory Exam: Clear to Ausculation Bilateral, NORMAL BREATHING PATTERN - Cardiovascular Exam Cardiovascular Exam: REGULAR RHYTHM, +S1, +S2. absent: Murmur - GI/Abdominal Exam GI & Abdominal Exam: Soft, Normal Bowel Sounds. absent: Tenderness - Rectal Exam Rectal Exam: Deferred Assessment and Plan (1) Abdominal pain Status: Acute (2) ESRD needing dialysis Status: Acute (3) CKD (chronic kidney disease) Status: Acute (4) Diabetic ulcer of left fifth toe Status: Acute
--- NOTE | 2018-01-10 06:34 | PN ---
DATE: 01/09/2018 FOLLOWUP RENAL CONSULTATION REQUESTED BY: Emilio Israel MD REASON FOR FOLLOWUP: End-stage renal disease, for continuation of hemodialysis. HISTORY OF PRESENT ILLNESS: Mr. Richards is 72 years old elderly male with a past medical history significant for longstanding hypertension, diabetes, hyperlipidemia, BPH, end-stage renal disease, diverticulosis who was admitted with nausea and abdominal discomfort x3 in the last 1 month, and the patient was admitted at this time with abdominal pain and elevated WBC count. CT scan of the abdomen and pelvis consistent with acute diverticulitis. The patient is on IV antibiotics. The patient was started initially on Flagyl and Rocephin, and now is changed to Keflex. The patient is feeling better, not in acute distress. Denies any headache, dizziness. Denies any chest pain or palpitation. Denies any fever or cough. No abdominal pain. No nausea, vomiting, or diarrhea. PHYSICAL EXAMINATION: VITAL SIGNS: As follows, blood pressure 151/71, pulse 75, respirations 20, temperature 98, saturation 99%. Height 6 feet, weight is 86.4 kg post dialysis. GENERAL: On physical exam, Mr. Richards is 72 years elderly male, moderately built, moderately nourished, not in distress. HEENT: Pupils normal and reactive to light and accommodation. Conjunctivae pink. Sclerae anicteric. Tongue is moist. Trachea is midline. LUNGS: Symmetric on both sides. Bilateral breath sounds present. Clear on auscultation. CVS: [place] at the fifth intercostal space, midclavicular area. S1, S2 audible. No murmur or gallop. ABDOMEN: Slightly distended, soft, tympanic. No guarding. No rigidity. No hepatosplenomegaly. VOLUNTEER PATIENT REPRESENTATIVE: The patient is alert, awake, and oriented x3. Nonfocal neuro examination. Cranial nerves II through XII grossly intact. Sensory and motor system is within normal limits. EXTREMITIES: No cyanosis, no clubbing, no edema on the right leg, status post left BKA. MEDICATIONS: His current medications include as follows, hydralazine, aspirin, Colace, Crestor, ferrous sulfate, Flagyl, cephalexin, Nephro-Benoit, famotidine, Proscar, Renvela, metoprolol, and Tylenol. LABORATORY DATA: His current laboratory data include as follows: As of 01/09/2018, WBC 4.6, hemoglobin 10, hematocrit is 30, and platelets 183. PT 12.3, PTT 32. Sodium 133, potassium 4.6, chloride 92, CO2 of 27, BUN 37, creatinine 9.1, glucose 93, hemoglobin A1c is 6.2, calcium 7.3, phosphorus 4.4, total bili 0.3, AST 35, ALT 21, alkaline phosphatase 74, total protein 7.4, albumin is 3.4, cholesterol is 85, triglyceride 102, LDL is 40, HDL is 26, amylase 163, and lipase is 642. Stool for C. diff toxin is negative as of 01/06/2018. IMPRESSION: In summary, Mr. Richards is a 72 years old elderly male with a history of hypertension, diabetes, hyperlipidemia, benign prostatic hyperplasia, diverticulosis with acute diverticulitis. 1. End-stage renal disease. Continue hemodialysis three times a week; Tuesday, , Tuesday. 2. Hypertension. Blood pressure is stable. Continue his current medication. 3. Acute diverticulitis. Continue Flagyl and Keflex. Continue Procrit and Renvela and Nephro-Benoit. We will follow with you. Thank you for allowing me to participate in your patient's care, possible discharge to home post dialysis as per the patient tomorrow. Blanca Thakkar MD
--- NOTE | 2018-01-10 06:42 | PN ---
DATE: LOCATION: [facility], bed B. SUBJECTIVE: This is 72-year-old male seen and examined early in rounds today. The entire chart is reviewed including, but not limited to, the most recent lab and radiology study results, current and the previous medication list, current and the previous medical events. The patient indicated that his abdominal pain is much less than before to near normal. No reported active bleeding. No nausea or vomiting. No chest pain or palpitation. No reported significant complaint of shortness of breath, but mild generalized weakness. The entire chart is reviewed including, but not limited to, the most recent lab and radiology study results, current and the previous medication list, current and the previous medical events, as well as all the reported medical records. Case discussed with the staff at length. Today's lab showed hemoglobin 10.0, hematocrit 30.0, with normal white blood cells and normal platelet count. PT is 20.3, BUN is 37, creatinine 9.1, blood glucose level of 93, low calcium 7.3, low albumin 3.4, with amylase 153, lipase 642 after the patient insisted to have solid diet. The most recent laboratory CAT scan of the abdomen and the pelvis about 3 days ago was indicative of acute diverticulitis, but no mention of any pancreatic disorders or inflammatory changes. PHYSICAL EXAMINATION GENERAL: A 72-year-old male awake, alert, and oriented. VITAL SIGNS: Afebrile, with pulse of 92, respiratory rate of 18 to 20, blood pressure 160/84. HEENT: Showed pale, dry oral mucous membrane. Nonicteric sclerae. LUNGS: Few scattered crepitations. Decreased air entry at bases. HEART: Positive S1 and S2 with increased rate. ABDOMEN: Soft with slight generalized tenderness, much less than before with mild left side tenderness. No mass or organomegaly. No rebound tenderness or guarding. EXTREMITIES: Without significant clubbing or cyanosis, but mild lower extremity edematous changes. NEUROLOGIC: No reported new neurological deficits, sensory, or motor. IMPRESSION: 1. Acute diverticulitis, improved clinically. 2. Pancreatitis. 3. Known history of but not limited to hyperlipidemia, hypertension, diabetes mellitus. 4. Status post left knee amputation by history. 5. End-stage renal disease, on hemodialysis. 6. Electrolyte imbalance with hypocalcemia secondary to above. 7. Anemia secondary to above, no evidence of active bleeding. SUGGESTIONS: 1. Continue current management. 2. Repeat serum level at a.m. 3. Further recommendations to follow. Frank Chamorro MD [facility] # [id number]
[2018-01-10] MEDS: Sevelamer Carb 2.4 gm/Packet PO SCH ×3 (08:26→17:29)
[2018-01-10] MEDS: Metoprolol Succinate 50 mg XL Tab PO SCH (10:04)
[2018-01-10] MEDS: Multivitamin Vitamin B Complex (Nephro-Vite) Tab PO SCH (10:04)
--- NOTE | 2018-01-10 12:39 | PN ---
DATE: LOCATION: [address] [place] [address] B. SUBJECTIVE: This is a 72-year-old male seen and examined in rounds, without significant clinical changes, with less loss of appetite, tolerating oral intakes well, appeared to be awake, alert and oriented, improving clinically in general. No reported active bleeding, actual chest pain, palpitation, or chills or fever. The entire chart is reviewed including, but not limited to the most recent lab and radiology study results, current and the previous medication list, current and the previous medical events. Today's lab still pending. However, the patient still has low hemoglobin and hematocrit, but low white blood cells of 4.6, with increased BUN and creatinine due to his chronic renal failure, but elevated serum lipase and amylase level as per yesterday. PHYSICAL EXAMINATION GENERAL: A 72-year-old male. VITAL SIGNS: Afebrile, with pulse of 72, respiratory rate of 20 to 22, blood pressure 168/66. HEENT: Showed pale dry oral mucous membrane. Nonicteric sclerae. LUNGS: Few scattered mild crepitations. Decreased air entry at bases. HEART: Positive S1 and S2. ABDOMEN: Soft, bowel sounds are present with slight mid epigastric as well as left lower quadrant area tenderness. No mass or organomegaly. No rebound tenderness or guarding. EXTREMITIES: Without significant clubbing, cyanosis or edema. NEUROLOGIC: No reported new neurological deficits, sensory or motor. Case discussed at length with the staff. IMPRESSION: 1. Diverticulosis, acute diverticulitis. 2. Re-exacerbation of peptic ulcer disease. 3. Acute pancreatitis, stable clinically. 4. Known history of hypertension, hyperlipidemia, as well as diabetes mellitus. 5. Chronic renal failure, on hemodialysis. 6. Anemia secondary to above. SUGGESTIONS: 1. Continue current management. 2. Repeat serum lipase and amylase level. 3. As the patient is clinically stable, then may consider discharge to home. Frank Chamorro MD
--- NOTE | 2018-01-10 12:47 | CP.PCM.PN ---
Subjective - Date & Time of Evaluation Date of Evaluation: 01/10/18 Time of Evaluation: 12:47 - Subjective Subjective: #[id number] pt is seen and examined, follow up consult is dictated Objective - Vital Signs/Intake and Output Vital Signs (last 24 hours): Temp Pulse Resp BP Pulse Ox 97.7 F 81 20 151/78 H 98 01/10/18 09:30 01/10/18 09:30 01/10/18 09:30 01/10/18 12:00 01/10/18 09:30 Intake and Output: 01/10/18 01/10/18 06:59 18:59 Intake Total 180 Balance 180 - Medications Medications: Current Medications Acetaminophen (Tylenol 325mg Tab) 650 mg PO Q6 PRN PRN Reason: Pain, moderate (4-7) Aspirin (Aspirin Chewable) 81 mg PO DAILY [facility] Last Admin: 01/10/18 10:04 Dose: Not Given Cephalexin Monohydrate (Keflex) 500 mg PO Q12H [facility] PRN Reason: Protocol Last Admin: 01/10/18 12:10 Dose: Not Given Docusate Sodium (Colace) 100 mg PO BID [facility] Last Admin: 01/10/18 10:04 Dose: Not Given Famotidine (Pepcid) 20 mg PO DAILY [facility] Last Admin: 01/10/18 10:04 Dose: Not Given Ferrous Sulfate (Feosol) 325 mg PO DAILY [facility] Last Admin: 01/10/18 10:04 Dose: Not Given Finasteride (Proscar) 5 mg PO HS [facility] Last Admin: 01/08/18 21:35 Dose: 5 mg Hydralazine HCl (Apresoline) 100 mg PO Q8 [facility] Last Admin: 01/10/18 05:45 Dose: 100 mg Metoprolol Succinate (Toprol Xl) 50 mg PO DAILY [facility] Last Admin: 01/10/18 10:04 Dose: Not Given Metronidazole (Flagyl) 500 mg PO Q8 [facility] PRN Reason: Protocol Last Admin: 01/10/18 05:45 Dose: 500 mg Rosuvastatin Calcium (Crestor) 5 mg PO HS [facility] Last Admin: 01/09/18 21:27 Dose: 5 mg Sevelamer Carbonate (Renvela) 2.4 gm PO TIDCC [facility] Last Admin: 01/10/18 12:10 Dose: Not Given Vitamin B Complex/Vit C/Folic Acid (Nephro-Benoit) 1 tab PO DAILY [facility] Last Admin: 01/10/18 10:04 Dose: Not Given - Labs Labs: 01/09/18 07:30 01/09/18 07:30 PT 12.3 SECONDS (9.7-12.2) H 01/09/18 07:30 INR 1.1 01/09/18 07:30 APTT 32 SECONDS (21-34) 01/09/18 07:30
[2018-01-10 16:17] VITALS: BP 176/77; PULSE 85; RESP 20; TEMP 98.3; O2SAT 99
--- NOTE | 2018-01-10 23:34 | CP.PCM.DIS ---
Provider - Provider Date of Admission: 01/04/18 17:32 Attending physician: Emilio Israel MD Time Spent in preparation of Discharge (in minutes): 54 Diagnosis - Discharge Diagnosis (1) Abdominal pain Status: Acute (2) ESRD needing dialysis Status: Acute (3) CKD (chronic kidney disease) Status: Acute (4) Diabetic ulcer of left fifth toe Status: Acute Priority: High Hospital Course - Lab Results Lab Results: Most Recent Lab Values WBC 4.6 K/uL (4.8-10.8) L 01/09/18 07:30 RBC 3.10 Mil/uL (4.40-5.90) L 01/09/18 07:30 Hgb 10.0 g/dL (12.0-18.0) L 01/09/18 07:30 Hct 30.0 % (35.0-51.0) L 01/09/18 07:30 MCV 96.7 fL (80.0-94.0) H 01/09/18 07:30 MCH 32.3 pg (27.0-31.0) H 01/09/18 07:30 MCHC 33.4 g/dL (33.0-37.0) 01/09/18 07:30 RDW 16.2 % (11.5-14.5) H 01/09/18 07:30 Plt Count 183 K/uL (130-400) 01/09/18 07:30 MPV 8.3 fL (7.2-11.7) 01/09/18 07:30 Neut % (Auto) 55.1 % (50.0-75.0) 01/09/18 07:30 Lymph % (Auto) 22.9 % (20.0-40.0) 01/09/18 07:30 [place] % (Auto) 17.1 % (0.0-10.0) H 01/09/18 07:30 Eos % (Auto) 3.7 % (0.0-4.0) 01/09/18 07:30 Baso % (Auto) 1.2 % (0.0-2.0) 01/09/18 07:30 Neut # (Auto) 2.6 K/uL (1.8-7.0) 01/09/18 07:30 Lymph # (Auto) 1.1 K/uL (1.0-4.3) 01/09/18 07:30 [place] # (Auto) 0.8 K/uL (0.0-0.8) 01/09/18 07:30 Eos # (Auto) 0.2 K/uL (0.0-0.7) 01/09/18 07:30 Baso # (Auto) 0.1 K/uL (0.0-0.2) 01/09/18 07:30 Neutrophils % (Manual) 80 % (50-75) H 01/03/18 13:04 Lymphocytes % (Manual) 10 % (20-40) L 01/03/18 13:04 Monocytes % (Manual) 9 % (0-10) 01/03/18 13:04 Eosinophils % (Manual) 1 % (0-4) 01/03/18 13:04 Platelet Estimate Normal (NORMAL) 01/03/18 13:04 Hypochromasia (manual) Slight 01/03/18 13:04 Poikilocytosis (manual Slight 01/03/18 13:04 Anisocytosis (manual) Slight 01/03/18 13:04 Ovalocytes Slight 01/03/18 13:04 PT 12.3 SECONDS (9.7-12.2) H 01/09/18 07:30 INR 1.1 01/09/18 07:30 APTT 32 SECONDS (21-34) 01/09/18 07:30 Sodium 133 mmol/L (132-148) 01/09/18 07:30 Potassium 4.6 mmol/L (3.6-5.2) 01/09/18 07:30 Chloride 92 mmol/L (98-107) L 01/09/18 07:30 Carbon Dioxide 27 mmol/L (22-30) 01/09/18 07:30 Anion Gap 18 (10-20) 01/09/18 07:30 BUN 37 mg/dL (9-20) H 01/09/18 07:30 Creatinine 9.1 mg/dL (0.8-1.5) H* D 01/09/18 07:30 Est GFR ( Amer) 7 01/09/18 07:30 Est GFR (Non-Af Amer) 6 01/09/18 07:30 POC Glucose (mg/dL) 113 mg/dL (65-110) H 01/07/18 16:23 Random Glucose 93 mg/dL (75-110) 01/09/18 07:30 Hemoglobin A1c 6.2 % (4.2-6.5) 01/09/18 07:30 Calcium 7.3 mg/dl (8.6-10.4) L 01/09/18 07:30 Phosphorus 4.4 mg/dL (2.5-4.5) 01/09/18 07:30 Total Bilirubin 0.5 mg/dL (0.2-1.3) 01/09/18 07:30 AST 35 U/L (17-59) 01/09/18 07:30 ALT 21 U/L (21-72) D 01/09/18 07:30 Alkaline Phosphatase 74 U/L (38-126) 01/09/18 07:30 Total Protein 7.4 g/dL (6.3-8.3) 01/09/18 07:30 Albumin 3.4 g/dL (3.5-5.0) L 01/09/18 07:30 Globulin 4.0 gm/dL (2.2-3.9) H 01/09/18 07:30 Albumin/Globulin Ratio 0.8 (1.0-2.1) L 01/09/18 07:30 Triglycerides 85 mg/dL (0-149) 01/09/18 07:30 Cholesterol 102 mg/dL (0-199) 01/09/18 07:30 LDL Cholesterol Direct 40 mg/dL (0-129) 01/09/18 07:30 HDL Cholesterol 26 mg/dL (30-70) L 01/09/18 07:30 Amylase 153 U/L (30-110) H 01/09/18 07:30 Lipase 642 U/L (23-300) H 01/09/18 07:30 Carcinoembryonic Ag 6.9 ng/mL (0-3.0) H 01/05/18 11:40 CA 19-9 Antigen 44.4 U/mL (0-37) H 01/05/18 11:40 PTH Intact Whole Molec 155 pg/mL (14-64) H 01/09/18 07:30 C. difficile Ag & Toxin Negative (NEGATIVE) 01/06/18 13:18 - Hospital Course Hospital Course: Pt is stable for discharge today.pt is tolerating diet, abdominal pain is resolved, pt needs 1 more week of PO keeflex antibiotics Discharge Exam - Head Exam Head Exam: ATRAUMATIC, NORMAL INSPECTION, NORMOCEPHALIC - Eye Exam Eye Exam: EOMI, Normal appearance, PERRL Pupil Exam: NORMAL ACCOMODATION, PERRL - ENT Exam ENT Exam: Mucous Membranes Moist - Respiratory Exam Respiratory Exam: Decreased Breath Sounds, NORMAL BREATHING PATTERN - Cardiovascular Exam Cardiovascular Exam: REGULAR RHYTHM, +S1, +S2 Discharge Plan - Discharge Medications Prescriptions: Docusate [Colace] 100 mg PO BID #30 cap metroNIDAZOLE [Flagyl] 500 mg PO Q8 7 Days tab Cephalexin [Keflex] 500 mg PO Q12H 7 Days cap - Follow Up Plan Condition: FAIR Disposition: HOME/ ROUTINE Instructions: Metronidazole (Systemic), Diverticulitis, Cephalexin, Docusate, End Stage Kidney Disease (DC), Dialysis and Diet Additional Instructions: continue home medications as per med rec, keflex and flagyl for [address] israel, F/U with PMD in 1-2 days. continue HD as schedule, return to ER for worsening symptoms. Referrals: Blanca Thakkar MD [Staff Provider] - Emilio Israel MD [Staff Provider] -
--- NOTE | 2018-01-11 09:35 | PN ---
DATE: 01/10/2018 FOLLOWUP RENAL CONSULTATION LOCATION: Patient is located in room 360, bed B. REQUESTED BY: Emilio Israel MD REASON FOR FOLLOWUP: End-stage renal disease, continuation of the hemodialysis. HISTORY OF PRESENT ILLNESS: Mr. Richards is a 72-year-old elderly male with the past medical history significant for longstanding hypertension, diabetes, hyperlipidemia, diverticulosis, status post left BKA, status post pacemaker, was admitted with the chief complaints of abdominal pain and nausea, and elevated WBC count and found to have acute diverticulitis. Patient was started initially on Rocephin and Flagyl, and now patient is on Keflex and Flagyl p.o. Patient is seen and examined during dialysis this morning. Denies any abdominal pain. Denies any nausea, vomiting, diarrhea today, and patient had ultrafiltration about 2.3 liter. PHYSICAL EXAMINATION: As follows; GENERAL: Mr. Richards is a 72-year-old elderly male, moderately-built, moderately-nourished, not in acute distress. VITAL SIGNS: Include as follows, blood pressure 166/81, pulse 81, respirations about 20, temperature 98. His height is 6 feet and weight is 86.6 kilogram post dialysis. HEENT: Pupils normal and reactive to light and accommodation. Conjunctivae pink. Sclerae anicteric. Tongue is moist. Trachea is midline. LUNGS: Symmetrical on both side. Bilateral breath sounds present. Clear on auscultation. CARDIOVASCULAR: [place] at the fifth intercostal space, midclavicular line. S1 and S2 audible. No murmur or gallop. Patient does have a pacemaker in the right subclavian region. ABDOMEN: Slightly distended, soft, tympanic. No guarding. No rigidity. No hepatosplenomegaly. No abdominal bruits. CENTRAL NERVOUS SYSTEMS: Patient is alert, awake, oriented x3. Nonfocal neuro examination. Cranial nerves II through XII grossly intact. Sensory and motor system is within normal limits. EXTREMITIES: No cyanosis, no clubbing, and no edema on the right leg. Status post left BKA. MEDICATIONS: His current medication include as follows, hydralazine 100 mg p.o. q. 8 hours, aspirin 81 mg daily, Colace 100 mg p.o. b.i.d., Crestor 5 mg at bedtime, Feosol 325 mg p.o. daily, Flagyl 500 mg p.o. q. 8 hours, Keflex 500 mg p.o. q. 12 hours, Nephro-Benoit one tablet daily, Pepcid 20 mg p.o. daily, Proscar 5 mg p.o. at bedtime, Renvela 2.4 g p.o. t.i.d., Toprol XL 50 mg p.o. daily and Tylenol. LABORATORY DATA: His laboratory data include as follows, as of 01/09/2018, WBC 4.6, hemoglobin 10, hematocrit is 30, platelets 183. PT 12.3, PTT 32. Sodium 133, potassium 4.6, chloride 92, CO2 of 27, BUN 37, creatinine 9.1, glucose 93, calcium 7.3. Hemoglobin A1c 6.2. Phosphorous 4.4, total bili 0.5, with total protein 7.4, albumin is 3.4 and PTH intact level is 155. Stool for C. diff toxin was negative. ASSESSMENT AND PLAN: In summary, Mr. Richards is a 72-year-old elderly male with hypertension, diabetes, hyperlipidemia, end-stage renal disease, diverticulosis, benign prostatic hypertrophy, was admitted with abdominal pain, nausea and found to have acute diverticulitis. 1. End-stage renal disease. Continue hemodialysis three times a week, Tuesday, , Tuesday. Patient underwent hemodialysis today without any complication and ultrafiltration about 2.3 liters. 2. Anemia secondary to renal failure. Continue Procrit three times a week during dialysis. 3. Secondary hyperparathyroidism. Continue Zemplar 2 mcg three times a week during dialysis. 4. Acute diverticulitis. Continue Flagyl and Keflex as per Dr. Israel. 5. Benign prostatic hypertrophy. Continue Flomax and Proscar. We will also add Colace 100 mg p.o. t.i.d. We will follow with you. Case discussed with Dr. Israel in rounds. Thank you for allowing me to participate in your patient's care. Blanca Thakkar MD
== END 2018-01-10 20:56 | disposition home or self-care (01) | DRG 391 ==
LOC: C.ER 10:20 → C.9E 12:50 → C.3T 14:07 → OBSVTOIN 01-04 17:32
PROVIDERS: ADMIT Internal Medicine; ATTEND Internal Medicine
PROC: 5A1D70Z Performance of Urinary Filtration, Intermittent, Less than 6 Hours Per Day (ICD-10-PCS; principal; 2018-01-03)
PROC: 5A1D70Z Performance of Urinary Filtration, Intermittent, Less than 6 Hours Per Day (ICD-10-PCS; 2018-01-05)
PROC: 5A1D70Z Performance of Urinary Filtration, Intermittent, Less than 6 Hours Per Day (ICD-10-PCS; 2018-01-07)
PROC: 5A1D70Z Performance of Urinary Filtration, Intermittent, Less than 6 Hours Per Day (ICD-10-PCS; 2018-01-10)
DX: K57.32 Diverticulitis of large intestine without perforation or abscess without bleeding (principal); N18.6 End stage renal disease; K85.90 Acute pancreatitis without necrosis or infection, unspecified; E11.22 Type 2 diabetes mellitus with diabetic chronic kidney disease; E87.2 Acidosis; E87.5 Hyperkalemia; I12.0 Hypertensive chronic kidney disease with stage 5 chronic kidney disease or end stage renal disease; E83.51 Hypocalcemia; N25.81 Secondary hyperparathyroidism of renal origin; D63.1 Anemia in chronic kidney disease; E78.00 Pure hypercholesterolemia, unspecified; K27.9 Peptic ulcer, site unspecified, unspecified as acute or chronic, without hemorrhage or perforation; I49.9 Cardiac arrhythmia, unspecified; N20.0 Calculus of kidney; K82.8 Other specified diseases of gallbladder; K80.20 Calculus of gallbladder without cholecystitis without obstruction; N40.0 Benign prostatic hyperplasia without lower urinary tract symptoms; F17.210 Nicotine dependence, cigarettes, uncomplicated; E78.5 Hyperlipidemia, unspecified; Z86.74 Personal history of sudden cardiac arrest; Z89.512 Acquired absence of left leg below knee; Z95.810 Presence of automatic (implantable) cardiac defibrillator; Z87.11 Personal history of peptic ulcer disease; Z99.2 Dependence on renal dialysis

== ENCOUNTER 2018-01-23 23:32 | Inpatient (IN) | payer MEDICARE, BC ==
[2018-01-23 23:32] VITALS: BMI 21.1
--- NOTE | 2018-01-24 00:13 | C.PDOC ---
History Of Present Illness 72 year old male who is a known dialysis patient presents to the ER with a complaint of left sided abdominal pain for the past month that has worsen over the past few days. Patient states he has been seen in the past for the same problems and reports he was placed on "antibiotics". Denies fever, chills, known Hx of diverticulitis, or colitis. PMHx includes HTN, HLD, and ESRD. Chief Complaint (Nursing): Medical Clearance History Per: Patient History/Exam Limitations: no limitations Onset/Duration Of Symptoms: Days Current Symptoms Are (Timing): Still Present Recent travel outside of the [place]: No Past Medical History Reviewed: Historical Data, Nursing Documentation, Vital Signs Vital Signs: Last Vital Signs Temp 98.3 F 01/24/18 23:45 Pulse 77 01/25/18 01:00 Resp 20 01/24/18 23:45 BP 181/83 H 01/24/18 23:45 Pulse Ox 99 01/24/18 23:45 - Medical History PMH: HTN, Hypercholesterolemia, End Stage Renal Disease, Chronic Kidney Disease Surgical History: Pacemaker (12/17) - [facility] Procedures (01/04/18) BYPASS LEFT POPLITEAL ARTERY TO FOOT ARTERY, OPEN APPROACH (12/27/15) DETACHMENT AT LEFT 2ND TOE, MID, OPEN APPROACH (12/27/15) DETACHMENT AT LEFT 5TH TOE, COMPLETE, OPEN APPROACH (12/27/15) DETACHMENT AT LEFT LOWER LEG, HIGH, OPEN APPROACH (12/13/16) DIALYSIS ARTERIOVENOSTOM (04/08/14) EXCISION OF DESCENDING COLON, ENDO, DIAGN (12/22/17) EXCISION OF LEFT FOOT SKIN, EXTERNAL APPROACH (12/27/15) EXCISION OF LEFT GREATER SAPHENOUS VEIN, OPEN APPROACH (12/27/15) EXCISION OF STOMACH, PYLORUS, ENDO, DIAGN (12/22/17) FLUOROSCOPY OF LEFT HEART USING LOW OSMOLAR CONTRAST (12/27/15) FLUOROSCOPY OF MULT COR ART USING L OSM CONTRAST (12/27/15) HEMODIALYSIS (04/08/14) INSERTION OF ENDOTRACHEAL AIRWAY INTO TRACHEA, VIA OPENING (12/13/16) INSERTION OF INFUSION DEV INTO SUP VENA CAVA, PERC APPROACH (12/27/15) INSERTION OF INFUSION DEVICE INTO R ATRIUM, PERC APPROACH (08/20/15) MEASURE OF CARDIAC SAMPL & PRESSURE, L HEART, PERC APPROACH (12/27/15) PERFORMANCE OF CARDIAC OUTPUT, SINGLE, MANUAL (12/13/16) PERFORMANCE OF URINARY FILTRATION, MULTIPLE (12/13/16) PLAIN RADIOGRAPHY OF AORTA, BI LE ART USING L OSM CONTRAST (12/27/15) RESPIRATORY VENTILATION, LESS THAN 24 CONSECUTIVE HOURS (12/13/16) TRANSFUSE NONAUT RED BLOOD CELLS IN PERIPH VEIN, PERC (12/27/15) ULTRASONOGRAPHY OF SUPERIOR VENA CAVA, GUIDANCE (12/27/15) VENOUS CATHETERIZATION FOR RENAL DIALYSIS (04/08/14) Family History: States: Unknown Family Hx - Social History Hx Tobacco Use: Yes Hx Alcohol Use: No Hx Substance Use: No - Immunization History Hx Tetanus Toxoid Vaccination: No Hx Influenza Vaccination: Yes Hx Pneumococcal Vaccination: Yes Review Of Systems Constitutional: Negative for: Fever, Chills Cardiovascular: Negative for: Chest Pain, Palpitations Respiratory: Negative for: Cough, Shortness of Breath Gastrointestinal: Positive for: Abdominal Pain. Negative for: Nausea, Vomiting , Constipation Musculoskeletal: Negative for: Back Pain Physical Exam - Physical Exam Appears: Non-toxic, No Acute Distress, Other (Awake, alert) Skin: Normal Color, Warm, Dry Head: Atraumatic, Normacephalic Eye(s): bilateral: Normal Inspection Ear(s): Bilateral: Normal Nose: Normal Oral Mucosa: Moist Throat: Normal, No Erythema, No Exudate Neck: Normal, Supple Chest: Symmetrical, No Tenderness Cardiovascular: Rhythm Regular Respiratory: Normal Breath Sounds, No Rales, No Rhonchi, No Wheezing Gastrointestinal/Abdominal: Soft, Tenderness (LLQ), No Mass, Guarding (LLQ), No Rebound Extremity: Other (Left upper arm AV fistula, thill felt and bruit auscultated) Neurological/Psych: Oriented x3, Normal Speech ED Course And Treatment - Laboratory Results Result Diagrams: 01/24/18 00:44 01/24/18 00:44 ECG: Interpreted By Me, Viewed By Me ECG Rhythm: Sinus Rhythm ECG Interpretation: Normal Interpretation Of ECG: Interventricular conduction delay, RBBB pattern waves in 3 and AVF likely from old inferior [place], vq waves in leads 1 2 3, likey from old septal [place]. When compared to EKG on 01/03/18 there are no acute changes found. Rate From EC O2 Sat by Pulse Oximetry: 98 (Room air) Pulse Ox Interpretation: Normal Medical Decision Making Medical Decision Making: Impression is abdominal pain, rule out diverticulitis, will order CT abd/pel and routine blood work. Disposition - Disposition Disposition: HOSPITALIZED Disposition Time: 06:44 Condition: GOOD - Clinical Impression Clinical Impression: Dyspnea - Scribe Statement The provider has reviewed the documentation as recorded by the Scribe Larry Woods All medical record entries made by the Jake were at my direction and personally dictated by me. I have reviewed the chart and agree that the record accurately reflects my personal performance of the history, physical exam, medical decision making, and the department course for this patient. I have also personally directed, reviewed, and agree with the discharge instructions and disposition.
[2018-01-24 00:48] LABS: BASO # 0.1 K/uL (0.0-0.2); BASO % 0.9 % (0.0-2.0); EOS # 0.1 K/uL (0.0-0.7); EOS % 1.4 % (0.0-4.0); HEMOGLOBIN 10.8 g/dL (12.0-18.0); LYMPH # 0.8 K/uL (1.0-4.3); LYMPH % 10.3 % (20.0-40.0); MEAN CELL VOLUME 99.9 fL (80.0-94.0); MEAN PLATELET VOLUME 8.4 fL (7.2-11.7); MONO # 0.8 K/uL (0.0-0.8); MONO % 9.5 % (0.0-10.0); NEUT # 6.5 K/uL (1.8-7.0); NEUT % 77.9 % (50.0-75.0); RBC 3.27 Mil/uL (4.40-5.90); RED CELL DISTRIBUTION WIDTH 17.3 % (11.5-14.5); WHITE BLOOD COUNT 8.3 K/uL (4.8-10.8)
[2018-01-24 01:13] LABS: ALBUMIN 4.2 g/dL (3.5-5.0); CALCIUM 8.2 mg/dl (8.6-10.4)
[2018-01-24] MEDS ORDERED: Calcium Chloride 1000 mg/10 ml Syringe IV ONE (01:31)
[2018-01-24] MEDS ORDERED: Sodium Bicarbonate (8.4%) 50 Meq Syringe IVP ONE (01:33)
[2018-01-24] MEDS ORDERED: (Novolin R) Insulin Human Regular 100 units/ml vial IV STA (01:34)
[2018-01-24] MEDS ORDERED: Dextrose 50% SYRINGE Inj (50 ml) IV STA (01:35)
[2018-01-24] MEDS ORDERED: (Novolin R) Insulin Human Regular 100 units/ml vial ONE (01:47)
[2018-01-24] MEDS ORDERED: Sodium Bicarbonate (8.4%) 50 Meq Syringe ONE (01:48)
[2018-01-24] MEDS ORDERED: Dextrose 50% VIAL Inj (50 ml) IV ONE (01:48)
--- NOTE | 2018-01-24 02:30 | CT ---
EXAM: CT Abdomen and Pelvis Without Intravenous Contrast CLINICAL HISTORY: 72 years old, male; Pain; Abdominal pain; Patient HX: 01-06-18 images sent; Additional info: Abd pain TECHNIQUE: Axial computed tomography images of the abdomen and pelvis without intravenous contrast. All CT scans at this facility use one or more dose reduction techniques, viz.: automated exposure control; ma/kV adjustment per patient size (including targeted exams where dose is matched to indication; i.e. head); or iterative reconstruction technique. 739 images are submitted. Coronal and sagittal reformatted images were created and reviewed. COMPARISON: CT - ABD PELVIS W/O PO OR IV CONT 2017-12-21 01:49 FINDINGS: Lower thorax: There are cardiac leads from a cardiac rhythm maintenance device. Cardiomegaly. Bibasilar nonspecific infiltrates are present, consistent with atelectasis or pneumonia. Coronary artery calcifications. Small hiatal hernia. ABDOMEN: Liver: There is a focal liver hypodensity that cannot be further characterized on the current examination. Statistically this most likely represents hepatic cysts and was seen on prior examination. Gallbladder and bile ducts: Partially distended gallbladder with gallstones which was seen on prior examination. The gallstones have migrated from the fundus of the gallbladder to the lower portion of the gallbladder. Pancreas: Unremarkable. No ductal dilation. Spleen: Unremarkable. No splenomegaly. Adrenals: Unremarkable. No mass. Kidneys and ureters: Bilateral renal and renovascular calcifications. There are renal hypodensities too small to characterize. Statistically represent renal cysts. No hydronephrosis. Stomach and bowel: There is left lower quadrant diverticulosis with surrounding inflammatory change representing early acute diverticulitis. Diverticulosis. Moderate amount of stool in the colon. No obstruction. Appendix: Normal appendix. PELVIS: Bladder: There are two 3-4 mm bladder stones which were seen on prior examination. Partially distended bladder. Reproductive: Enlarged prostate gland with calcifications. ABDOMEN and PELVIS: Intraperitoneal space: Unremarkable. No free air. No significant fluid collection. Bones/joints: There is degenerative disc disease at L4-L5 and L5-S1 level. No acute fracture. No dislocation. Soft tissues: Bilateral gynecomastia. Left inguinal herniation of fat. Vasculature: Unremarkable. No abdominal aortic aneurysm. Lymph nodes: Unremarkable. No enlarged lymph nodes. IMPRESSION: 1. There is left lower quadrant diverticulosis with surrounding inflammatory change representing early acute diverticulitis. No perforation or abscess.
[2018-01-24 05:31] LABS: PROTHROMBIN TIME 11.2 SECONDS (9.7-12.2)
[2018-01-24] MEDS ORDERED: metroNIDAZOLE IV 500 mg/100 ml 500 MG/100 ML BAG ONE (06:09)
[2018-01-24] MEDS: metroNIDAZOLE IV 500 mg/100 ml 500 MG/100 ML BAG IVPB SCH ×3 (06:17→21:09)
[2018-01-24] MEDS: (Novolin R) Insulin Human Regular 100 units/ml vial SC SCH ×4 (07:21→21:09)
[2018-01-24] MEDS: Sevelamer Carb 2.4 gm/Packet PO SCH ×3 (09:45→17:26)
[2018-01-24] MEDS: Metoprolol Succinate 50 mg XL Tab PO SCH (09:45)
[2018-01-24] MEDS ORDERED: CALCITRIOL 0.25 MG PO SCH (10:00)
[2018-01-24] MEDS ORDERED: Paricalcitol 2 mcg/ml Inj IV SCH (10:00)
[2018-01-24] MEDS ORDERED: Epoetin Alfa 10,000 unit/ml Dialysis IV SCH (10:00)
[2018-01-24] MEDS: cefTRIAXone IV 1 gm in Dextros 50 ML IVPB SCH (11:28)
--- NOTE | 2018-01-24 11:54 | CP.PCM.PN ---
Subjective - Date & Time of Evaluation Date of Evaluation: 01/24/18 Time of Evaluation: 11:53 - Subjective Subjective: pt is seen and examined, follow up consult is dictated #[id number] for hd today, uf 3.3 lit Objective - Vital Signs/Intake and Output Vital Signs (last 24 hours): Temp Pulse Resp BP Pulse Ox 97.8 F 95 H 20 161/113 H 98 01/24/18 10:05 01/24/18 11:44 01/24/18 11:44 01/24/18 11:44 01/24/18 10:05 - Medications Medications: Current Medications Acetaminophen (Tylenol 325mg Tab) 650 mg PO Q6 PRN PRN Reason: Pain, moderate (4-7) Aspirin (Aspirin Chewable) 81 mg PO DAILY [facility] Last Admin: 01/24/18 09:45 Dose: Not Given Calcium Acetate (Phoslo) 1,334 mg PO TIDCC [facility] Last Admin: 01/24/18 11:29 Dose: Not Given Docusate Sodium (Colace) 100 mg PO BID [facility] Last Admin: 01/24/18 09:45 Dose: Not Given Epoetin Omi (Procrit) 20,000 unit IV TTS [facility] Last Admin: 01/24/18 10:36 Dose: 20,000 unit Ferrous Sulfate (Feosol) 325 mg PO DAILY [facility] Last Admin: 01/24/18 09:45 Dose: Not Given Finasteride (Proscar) 5 mg PO HS [facility] Heparin Sodium (Porcine) (Heparin) 5,000 units SC Q8 [facility] Last Admin: 01/24/18 06:18 Dose: 5,000 units Home Med (Calcitriol) 0.25 mg PO DAILY [facility] Last Admin: 01/24/18 09:45 Dose: Not Given Hydralazine HCl (Apresoline) 50 mg PO Q8 [facility] Last Admin: 01/24/18 06:17 Dose: 50 mg Metronidazole (Flagyl) 500 mg in 100 mls @ 100 mls/hr IVPB Q8 [facility] PRN Reason: Protocol Last Admin: 01/24/18 06:17 Dose: 100 mls/hr Ceftriaxone Sodium (Rocephin Iv 1 Gm Duplex) 50 mls @ 100 mls/hr IVPB DAILY [facility] PRN Reason: Protocol Last Admin: 01/24/18 11:28 Dose: Not Given Insulin Human Regular (Novolin R) 0 unit SC ACHS [facility] PRN Reason: Protocol Last Admin: 01/24/18 11:29 Dose: Not Given Metoprolol Succinate (Toprol Xl) 50 mg PO DAILY [facility] Last Admin: 01/24/18 09:45 Dose: Not Given Paricalcitol (Zemplar) 2 mcg IV TTS [facility] Last Admin: 01/24/18 10:36 Dose: 2 mcg Rosuvastatin Calcium (Crestor) 10 mg PO HS [facility] Rosuvastatin Calcium (Crestor) 5 mg PO HS [facility] Sevelamer Carbonate (Renvela) 2.4 gm PO TIDCC [facility] Last Admin: 01/24/18 11:29 Dose: Not Given - Labs Labs: 01/24/18 00:44 01/24/18 00:44 PT 11.2 SECONDS (9.7-12.2) 01/24/18 05:21 INR 1.0 01/24/18 05:21 APTT 27 SECONDS (21-34) 01/24/18 05:21
[2018-01-24] MEDS ORDERED: Metoprolol Succinate 50 mg XL Tab PO STA (15:55)
[2018-01-25] MEDS: metroNIDAZOLE IV 500 mg/100 ml 500 MG/100 ML BAG IVPB SCH ×2 (05:07→13:38)
--- NOTE | 2018-01-25 06:11 | PN ---
DATE: 01/24/2018 FOLLOWUP RENAL CONSULTATION LOCATION: The patient is located in room 570, bed A. REQUESTED BY: Emilio Israel MD REASON FOR RENAL CONSULTATION: Uncontrolled hypertension, hyperkalemia, and continuation of the hemodialysis. HISTORY OF PRESENT ILLNESS: Mr. Richards is 72 years old elderly male with a past medical history significant for longstanding hypertension, diabetes, hyperlipidemia, BPH, end-stage renal disease, status post pacemaker placement, and status post left BKA, diverticulosis, and status post treatment for diverticulitis, about a week ago was admitted through the emergency room with chief complaints of decreased appetite and not feeling well and sleepy, and the patient was brought into the emergency room by his son for further evaluation and found to have a very high blood pressure and also hyperkalemia. The patient was admitted for further management. The patient was being dialyzed. UF goal is about 3 liters, not in distress this morning. PAST MEDICAL HISTORY: Significant for hypertension, diabetes, hyperlipidemia, BPH, end-stage renal disease, status post pacemaker, diverticulosis, and diverticulitis. PAST SURGICAL HISTORY: Status post left BKA and left upper extremity AV fistula and also status post pacemaker. ALLERGIES: NO KNOWN DRUG ALLERGIES. SOCIAL HISTORY: The patient was an ex-smoker. No alcohol or drug abuse. FAMILY HISTORY: Not significant. His , and he has a very supportive family. MEDICATIONS: His current medications include as follows, hydralazine 50 mg p.o. every 8 hours, aspirin 81 mg daily, Colace 100 mg p.o. b.i.d., Crestor on hold, Feosol 325 mg p.o. daily, Flagyl 500 mg IV piggyback every 8 hours, subcu heparin 5000 units every 8 hours, Novolin R for sliding scale, calcium acetate 667 mg two tablets p.o. t.i.d., Epogen 20,000 units IV three times a week, Proscar 5 mg p.o. at bedtime, Renvela mg p.o. t.i.d., Rocephin 1 gm daily, metoprolol 50 mg p.o. daily, Tylenol, Zemplar 2 mcg three times a week. REVIEW OF SYSTEMS: Significant for not feeling well, sleepy, and positive for decreased p.o. intake. PHYSICAL EXAMINATION: VITAL SIGNS: His vital signs and physical exam as follows, blood pressure 191/92, pulse 88, respirations about 16, temperature 98.1, saturation 100%. Height 6 feet 1 inch, weight is 203 pounds. GENERAL: Mr. Richards is a 72 years old elderly male, moderately built, moderately nourished, not in acute distress. HEENT: Pupils normal and reactive to light and accommodation. Conjunctivae pink. Sclerae anicteric. Tongue is moist. Trachea is midline. LUNGS: Symmetric on both sides. Bilateral breath sounds present. Clear to auscultation. CVS: [place] at the fifth intercostal space, midclavicular line. S1, S2 audible. No murmur or gallop. ABDOMEN: Normal in appearance, soft, tympanic. No guarding. No rigidity. No hepatosplenomegaly. 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 Nonfocal neuro examination. Cranial nerves II through XII grossly intact. Sensory and motor system is within normal limits. EXTREMITIES: No cyanosis, no clubbing, no edema. On the right leg, status post left BKA. LABORATORY DATA: His current lab data include as follows, as of 01/24/2018, WBC 8.3, hemoglobin 10.8, hematocrit is 32.7, platelets 152. Sodium 140, potassium 6.0, chloride 97, CO2 of 25, BUN 70, creatinine 8.5, glucose 155, calcium 8.2. Total bili 0.8, AST 31, ALT 70, alkaline phosphatase 174, total protein 8.5, albumin is 4.2, lipase is 578. Troponin 0.057. CT of the abdomen and pelvis as of 01/24/2018, there is left lower quadrant diverticulosis with surrounding inflammatory change representing early acute diverticulitis. No perforation or abscess. There is a degenerative disc disease at the L4-L5 and L5-S1 level. No acute fracture or dislocation. Bilateral gynecomastia and left inguinal hernia fat, vasculature unremarkable. No abdominal aortic aneurysm. No enlarged lymph nodes. No free air. No significant fluid collection of the abdomen and pelvis. IMPRESSURE: In summary, Mr. Richards is a 72 years old elderly male with history of longstanding hypertension, diabetes, hyperlipidemia, benign prostatic hypertrophy, end-stage renal disease, diverticulosis, status post diverticulitis of the transverse colon, treated with antibiotics about a week ago, now admitted with not feeling well, sleepy, and found to have a hyperkalemia and decreased p.o. intake. 1. Hyperkalemia secondary to end-stage renal disease, questionable compliance with the diet. 2. Uncontrolled hypertension. 3. End-stage renal disease. 4. Diabetes. 5. Diverticulitis of the left lower quadrant. PLAN: Continue IV antibiotics as per Dr. Emilio Israel. The patient is being dialyzed this morning and UF goal was about 3 liters. Repeat BMP in a.m., and we will follow with you. Thank you for allowing me to participate in your patient's care. Blanca Thakkar MD
[2018-01-25] MEDS: (Novolin R) Insulin Human Regular 100 units/ml vial SC SCH ×3 (08:28→17:25)
[2018-01-25] MEDS: Sevelamer Carb 2.4 gm/Packet PO SCH ×3 (08:45→17:34)
[2018-01-25] MEDS: cefTRIAXone IV 1 gm in Dextros 50 ML IVPB SCH (09:58)
[2018-01-25] MEDS: Metoprolol Succinate 50 mg XL Tab PO SCH (09:59)
[2018-01-25 11:18] LABS: BASO % 0.5 % (0.0-2.0); EOS # 0.1 K/uL (0.0-0.7); EOS % 2.2 % (0.0-4.0); HEMOGLOBIN 10.9 g/dL (12.0-18.0); LYMPH # 0.8 K/uL (1.0-4.3); LYMPH % 14.6 % (20.0-40.0); MEAN CELL VOLUME 98.9 fL (80.0-94.0); MEAN CORPUSCULAR HEMOGLOBIN 32.8 pg (27.0-31.0); MEAN CORPUSCULAR HGB CONC 33.2 g/dL (33.0-37.0); MEAN PLATELET VOLUME 8.8 fL (7.2-11.7); MONO # 0.6 K/uL (0.0-0.8); MONO % 10.5 % (0.0-10.0); NEUT # 4.1 K/uL (1.8-7.0); NEUT % 72.2 % (50.0-75.0); RBC 3.32 Mil/uL (4.40-5.90); WHITE BLOOD COUNT 5.7 K/uL (4.8-10.8)
[2018-01-25 11:29] LABS: ALB/GLOB RATIO 0.9 (1.0-2.1); ALBUMIN 3.7 g/dL (3.5-5.0); CALCIUM 8.6 mg/dl (8.6-10.4)
--- NOTE | 2018-01-25 17:14 | CP.PCM.PN ---
Subjective - Date & Time of Evaluation Date of Evaluation: 01/25/18 Time of Evaluation: 17:11 - Subjective Subjective: PATIENT AAOX3 SIT AT THE BEDSIDE DENIES CHEST PAIN OR SOB COMPLAINT OF GENERALIZED PAIN ACHE NO SIGN OF DISTRESS NOTED Objective - Vital Signs/Intake and Output Vital Signs (last 24 hours): Temp Pulse Resp BP Pulse Ox 97.9 F 81 20 181/86 H 98 01/25/18 15:00 01/25/18 15:00 01/25/18 15:00 01/25/18 15:00 01/25/18 15:00 Intake and Output: 01/25/18 01/25/18 06:59 18:59 Intake Total 500 Balance 500 - Medications Medications: Current Medications Acetaminophen (Tylenol 325mg Tab) 650 mg PO Q6 PRN PRN Reason: Pain, moderate (4-7) Aspirin (Aspirin Chewable) 81 mg PO DAILY [facility] Last Admin: 01/25/18 09:59 Dose: 81 mg Calcitriol (Rocaltrol) 0.25 mcg PO DAILY [facility] Last Admin: 01/25/18 09:59 Dose: 0.25 mcg Calcium Acetate (Phoslo) 1,334 mg PO TIDCC [facility] Last Admin: 01/25/18 13:35 Dose: 1,334 mg Docusate Sodium (Colace) 100 mg PO BID [facility] Last Admin: 01/25/18 09:59 Dose: 100 mg Ferrous Sulfate (Feosol) 325 mg PO DAILY [facility] Last Admin: 01/25/18 09:59 Dose: 325 mg Finasteride (Proscar) 5 mg PO HS [facility] Last Admin: 01/24/18 21:08 Dose: 5 mg Heparin Sodium (Porcine) (Heparin) 5,000 units SC Q8 [facility] Last Admin: 01/25/18 13:37 Dose: 5,000 units Hydralazine HCl (Apresoline) 50 mg PO Q8 [facility] Last Admin: 01/25/18 13:36 Dose: 50 mg Metronidazole (Flagyl) 500 mg in 100 mls @ 100 mls/hr IVPB Q8 [facility] PRN Reason: Protocol Last Admin: 01/25/18 13:38 Dose: 100 mls/hr Ceftriaxone Sodium (Rocephin Iv 1 Gm Duplex) 50 mls @ 100 mls/hr IVPB DAILY [facility] PRN Reason: Protocol Last Admin: 01/25/18 09:58 Dose: 100 mls/hr Insulin Human Regular (Novolin R) 0 unit SC ACHS [facility] PRN Reason: Protocol Last Admin: 01/25/18 12:28 Dose: 1 unit Metoprolol Succinate (Toprol Xl) 50 mg PO DAILY [facility] Last Admin: 01/25/18 09:59 Dose: 50 mg Paricalcitol (Zemplar) 2 mcg IV TTS [facility] Last Admin: 01/24/18 10:36 Dose: 2 mcg Rosuvastatin Calcium (Crestor) 10 mg PO HS [facility] Rosuvastatin Calcium (Crestor) 5 mg PO HS [facility] Sevelamer Carbonate (Renvela) 2.4 gm PO TIDCC [facility] Last Admin: 01/25/18 13:36 Dose: 2.4 gm - Labs Labs: 01/25/18 11:09 01/25/18 11:09 PT 11.2 SECONDS (9.7-12.2) 01/24/18 05:21 INR 1.0 01/24/18 05:21 APTT 27 SECONDS (21-34) 01/24/18 05:21 Assessment and Plan - Assessment and Plan (Free Text) Assessment: PATIENT SEEN AND EXAMINED AT THE BEDSIDE LUNG SOUND CLEAR JEFFRY ABD CT DONE SHOW DIVERTILOSIS AND EARLY SIGN OF DIVERTILITIS POST HD LAB WORK K IS 4.[address] GLEASON WHO CLEAR FOR DC FOLLOW UP WITH DR GLEASON 1-2 WEEKS AT HIS OFFICE ---CALL FOR APPOINTMENT DIALYSIS OUT PATIENT SCHEDULE CONTINUE ALL YOUR HOME MEDICATION NEW PRESCRIPTION GIVEN CIPRO 250 MG PO BID FOR 7 DAYS FLAGYL 500 MG PO Q8H FOR 7 DAYS TRAMADOL 50 MG PO Q6H PRN FOR PAIN ACTIVITY TOLERATED CALL DR GLEASON OR GO TO THE EMERGENCY ROOM IF SYMPTOMS RETURN OR WORSENING DISCUSS WITH PATIENT WHO AGREE AND VERBALIZED UNDERSTANDING
--- NOTE | 2018-01-25 18:21 | CP.PCM.PN ---
Subjective - Date & Time of Evaluation Date of Evaluation: 01/25/18 Time of Evaluation: 18:21 - Subjective Subjective: pt is seen and examined, follow up consult is dictated #[id number] Objective - Vital Signs/Intake and Output Vital Signs (last 24 hours): Temp Pulse Resp BP Pulse Ox 97.9 F 83 20 181/86 H 98 01/25/18 15:00 01/25/18 16:00 01/25/18 15:00 01/25/18 15:00 01/25/18 15:00 Intake and Output: 01/25/18 01/25/18 06:59 18:59 Intake Total 500 Balance 500 - Medications Medications: Current Medications Acetaminophen (Tylenol 325mg Tab) 650 mg PO Q6 PRN PRN Reason: Pain, moderate (4-7) Aspirin (Aspirin Chewable) 81 mg PO DAILY [facility] Last Admin: 01/25/18 09:59 Dose: 81 mg Calcitriol (Rocaltrol) 0.25 mcg PO DAILY [facility] Last Admin: 01/25/18 09:59 Dose: 0.25 mcg Calcium Acetate (Phoslo) 1,334 mg PO TIDCC [facility] Last Admin: 01/25/18 17:25 Dose: 1,334 mg Docusate Sodium (Colace) 100 mg PO BID [facility] Last Admin: 01/25/18 17:34 Dose: 100 mg Ferrous Sulfate (Feosol) 325 mg PO DAILY [facility] Last Admin: 01/25/18 09:59 Dose: 325 mg Finasteride (Proscar) 5 mg PO HS [facility] Last Admin: 01/24/18 21:08 Dose: 5 mg Heparin Sodium (Porcine) (Heparin) 5,000 units SC Q8 [facility] Last Admin: 01/25/18 13:37 Dose: 5,000 units Hydralazine HCl (Apresoline) 50 mg PO Q8 [facility] Last Admin: 01/25/18 13:36 Dose: 50 mg Metronidazole (Flagyl) 500 mg in 100 mls @ 100 mls/hr IVPB Q8 [facility] PRN Reason: Protocol Last Admin: 01/25/18 13:38 Dose: 100 mls/hr Ceftriaxone Sodium (Rocephin Iv 1 Gm Duplex) 50 mls @ 100 mls/hr IVPB DAILY [facility] PRN Reason: Protocol Last Admin: 01/25/18 09:58 Dose: 100 mls/hr Insulin Human Regular (Novolin R) 0 unit SC ACHS [facility] PRN Reason: Protocol Last Admin: 01/25/18 17:25 Dose: 1 unit Metoprolol Succinate (Toprol Xl) 50 mg PO DAILY [facility] Last Admin: 01/25/18 09:59 Dose: 50 mg Paricalcitol (Zemplar) 2 mcg IV TTS [facility] Last Admin: 01/24/18 10:36 Dose: 2 mcg Rosuvastatin Calcium (Crestor) 10 mg PO HS [facility] Rosuvastatin Calcium (Crestor) 5 mg PO HS [facility] Sevelamer Carbonate (Renvela) 2.4 gm PO TIDCC [facility] Last Admin: 01/25/18 17:34 Dose: 2.4 gm - Labs Labs: 01/25/18 11:09 01/25/18 11:09 PT 11.2 SECONDS (9.7-12.2) 01/24/18 05:21 INR 1.0 01/24/18 05:21 APTT 27 SECONDS (21-34) 01/24/18 05:21
--- NOTE | 2018-01-25 22:56 | CP.PCM.HP ---
History of Present Illness - History of Present Illness History of Present Illness: History Of Present Illness 72 year old male who is a known dialysis patient presents to the ER with a complaint of left sided abdominal pain for the past month that has worsen over the past few days. Patient states he has been seen in the past for the same problems and reports he was placed on "antibiotics". Denies fever, chills, known Hx of diverticulitis, or colitis. PMHx includes HTN, HLD, and ESRD. Past Patient History - Infectious Disease Hx of Infectious Diseases: None - Past Medical History & Family History Past Medical History?: Yes - Past Social History Smoking Status: Current Some Days Smoker - CARDIAC Hx Hypercholesterolemia: Yes Hx Hypertension: Yes Hx Pacemaker: Yes (12/17) - PULMONARY Other/Comment: light smoker - NEUROLOGICAL Hx Alzheimer's Disease: No - HEENT Hx HEENT Problems: Yes Other/Comment: left eye vision problems - RENAL Hx Chronic Kidney Disease: Yes - ENDOCRINE/METABOLIC Hx Diabetes Mellitus Type 2: Yes - HEMATOLOGICAL/ONCOLOGICAL Hx Blood Disorders: No - INTEGUMENTARY Hx Dermatological Problems: No - MUSCULOSKELETAL/RHEUMATOLOGICAL Hx Falls: No - GASTROINTESTINAL Hx Gastrointestinal Disorders: Yes Hx Nausea: Yes - GENITOURINARY/GYNECOLOGICAL Hx Genitourinary Disorders: No - PSYCHIATRIC Hx Substance Use: No - SURGICAL HISTORY Hx Surgeries: Yes Hx Amputation: Yes (left bka with prosthesis) Hx Angiogram: Yes Hx Herniorrhaphy: Yes Hx Vascular Access Device: Yes - ANESTHESIA Hx Anesthesia: Yes Hx Anesthesia Reactions: No Hx Malignant Hyperthermia: No Meds Home Medications: Home Medication List Medication Instructions Recorded Confirmed Type Ciprofloxacin HCl [Cipro] 250 mg PO BID 7 Days tablet 01/25/18 Rx metroNIDAZOLE [Flagyl] 500 mg PO Q8 7 Days tab 01/25/18 Rx traMADol [Ultram] 50 mg PO Q6 PRN #20 tab 01/25/18 Rx Allergies/Adverse Reactions: Allergies Allergy/AdvReac Type Severity Reaction Status Date / Time No Known Allergies Allergy Verified 12/22/17 02:18 Results - Vital Signs Recent Vital Signs: Last Vital Signs Temp 97.9 F 01/25/18 15:00 Pulse 83 01/25/18 16:00 Resp 20 01/25/18 15:00 BP 181/86 H 01/25/18 15:00 Pulse Ox 98 01/25/18 15:00 - Labs Result Diagrams: 01/25/18 11:09 01/25/18 11:09 Labs: Laboratory Results - last 24 hr 01/25/18 01/25/18 01/25/18 06:06 11:09 11:09 WBC 5.7 RBC 3.32 L Hgb 10.9 L Hct 32.8 L MCV 98.9 H MCH 32.8 H MCHC 33.2 RDW 17.0 H Plt Count 148 MPV 8.8 Neut % (Auto) 72.2 Lymph % (Auto) 14.6 L [place] % (Auto) 10.5 H Eos % (Auto) 2.2 Baso % (Auto) 0.5 Neut # (Auto) 4.1 Lymph # (Auto) 0.8 L [place] # (Auto) 0.6 Eos # (Auto) 0.1 Baso # (Auto) 0.0 Sodium 139 Potassium 4.4 Chloride 95 L Carbon Dioxide 30 Anion Gap 19 BUN 42 H Creatinine 6.7 H Est GFR ( Amer) 10 Est GFR (Non-Af Amer) 8 POC Glucose (mg/dL) 171 H Random Glucose 186 H Calcium 8.6 Total Bilirubin 0.8 AST 21 ALT 10 L D Alkaline Phosphatase 104 Total Protein 8.0 Albumin 3.7 Globulin 4.3 H Albumin/Globulin Ratio 0.9 L 01/25/18 01/25/18 11:21 16:46 WBC RBC Hgb Hct MCV MCH MCHC RDW Plt Count MPV Neut % (Auto) Lymph % (Auto) [place] % (Auto) Eos % (Auto) Baso % (Auto) Neut # (Auto) Lymph # (Auto) [place] # (Auto) Eos # (Auto) Baso # (Auto) Sodium Potassium Chloride Carbon Dioxide Anion Gap BUN Creatinine Est GFR ( Amer) Est GFR (Non-Af Amer) POC Glucose (mg/dL) 173 H 187 H Random Glucose Calcium Total Bilirubin AST ALT Alkaline Phosphatase Total Protein Albumin Globulin Albumin/Globulin Ratio
--- NOTE | 2018-01-25 22:56 | CP.PCM.DIS ---
Provider - Provider Date of Admission: 01/24/18 15:56 Attending physician: Emilio Israel MD Time Spent in preparation of Discharge (in minutes): 45 Hospital Course - Lab Results Lab Results: Most Recent Lab Values WBC 5.7 K/uL (4.8-10.8) 01/25/18 11:09 RBC 3.32 Mil/uL (4.40-5.90) L 01/25/18 11:09 Hgb 10.9 g/dL (12.0-18.0) L 01/25/18 11:09 Hct 32.8 % (35.0-51.0) L 01/25/18 11:09 MCV 98.9 fL (80.0-94.0) H 01/25/18 11:09 MCH 32.8 pg (27.0-31.0) H 01/25/18 11:09 MCHC 33.2 g/dL (33.0-37.0) 01/25/18 11:09 RDW 17.0 % (11.5-14.5) H 01/25/18 11:09 Plt Count 148 K/uL (130-400) 01/25/18 11:09 MPV 8.8 fL (7.2-11.7) 01/25/18 11:09 Neut % (Auto) 72.2 % (50.0-75.0) 01/25/18 11:09 Lymph % (Auto) 14.6 % (20.0-40.0) L 01/25/18 11:09 [place] % (Auto) 10.5 % (0.0-10.0) H 01/25/18 11:09 Eos % (Auto) 2.2 % (0.0-4.0) 01/25/18 11:09 Baso % (Auto) 0.5 % (0.0-2.0) 01/25/18 11:09 Neut # (Auto) 4.1 K/uL (1.8-7.0) 01/25/18 11:09 Lymph # (Auto) 0.8 K/uL (1.0-4.3) L 01/25/18 11:09 [place] # (Auto) 0.6 K/uL (0.0-0.8) 01/25/18 11:09 Eos # (Auto) 0.1 K/uL (0.0-0.7) 01/25/18 11:09 Baso # (Auto) 0.0 K/uL (0.0-0.2) 01/25/18 11:09 PT 11.2 SECONDS (9.7-12.2) 01/24/18 05:21 INR 1.0 01/24/18 05:21 APTT 27 SECONDS (21-34) 01/24/18 05:21 Sodium 139 mmol/L (132-148) 01/25/18 11:09 Potassium 4.4 mmol/L (3.6-5.2) 01/25/18 11:09 Chloride 95 mmol/L (98-107) L 01/25/18 11:09 Carbon Dioxide 30 mmol/L (22-30) 01/25/18 11:09 Anion Gap 19 (10-20) 01/25/18 11:09 BUN 42 mg/dL (9-20) H 01/25/18 11:09 Creatinine 6.7 mg/dL (0.8-1.5) H 01/25/18 11:09 Est GFR ( Amer) 10 01/25/18 11:09 Est GFR (Non-Af Amer) 8 01/25/18 11:09 POC Glucose (mg/dL) 187 mg/dL (65-110) H 01/25/18 16:46 Random Glucose 186 mg/dL (75-110) H 01/25/18 11:09 Calcium 8.6 mg/dl (8.6-10.4) 01/25/18 11:09 Total Bilirubin 0.8 mg/dL (0.2-1.3) 01/25/18 11:09 AST 21 U/L (17-59) 01/25/18 11:09 ALT 10 U/L (21-72) L D 01/25/18 11:09 Alkaline Phosphatase 104 U/L (38-126) 01/25/18 11:09 Troponin I 0.0570 ng/mL (0.00-0.120) 01/24/18 05:21 Total Protein 8.0 g/dL (6.3-8.3) 01/25/18 11:09 Albumin 3.7 g/dL (3.5-5.0) 01/25/18 11:09 Globulin 4.3 gm/dL (2.2-3.9) H 01/25/18 11:09 Albumin/Globulin Ratio 0.9 (1.0-2.1) L 01/25/18 11:09 Lipase 578 U/L (23-300) H 01/24/18 00:44 - Hospital Course Hospital Course: Pt s for discharge, decreased nausea, vomiting, cipro and flagyl antibiotics continue at home out patient follow up in 1 week Discharge Exam - Head Exam Head Exam: ATRAUMATIC, NORMAL INSPECTION, NORMOCEPHALIC - Eye Exam Eye Exam: EOMI, Normal appearance, PERRL Pupil Exam: NORMAL ACCOMODATION, PERRL - ENT Exam ENT Exam: Mucous Membranes Moist - Respiratory Exam Respiratory Exam: Clear to PA & Lateral, NORMAL BREATHING PATTERN - Cardiovascular Exam Cardiovascular Exam: REGULAR RHYTHM, +S1, +S2 - GI/Abdominal Exam GI & Abdominal Exam: Normal Bowel Sounds - Rectal Exam Rectal Exam: Deferred Discharge Plan - Discharge Medications Prescriptions: Ciprofloxacin HCl [Cipro] 250 mg PO BID 7 Days tablet metroNIDAZOLE [Flagyl] 500 mg PO Q8 7 Days tab traMADol [Ultram] 50 mg PO Q6 PRN #20 tab PRN Reason: Pain, Moderate (4-7) - Follow Up Plan Condition: GOOD Disposition: HOME/ ROUTINE Instructions: Type 2 Diabetes, Ciprofloxacin (Systemic), Smoking: Not Just Harmful to Your Lungs and Heart, Hemodialysis (DC), Metronidazole (Systemic), Quitting Smoking, Shortness of Breath (Dyspnea), Tramadol, End Stage Kidney Disease (DC) Additional Instructions: FOLLOW UP WITH DR ISRAEL 1-2 WEEKS AT HIS OFFICE ---CALL FOR APPOINTMENT DIALYSIS OUT PATIENT SCHEDULE CONTINUE ALL YOUR HOME MEDICATION NEW PRESCRIPTION GIVEN CIPRO 250 MG PO BID FOR 7 DAYS FLAGYL 500 MG PO Q8H FOR 7 DAYS TRAMADOL 50 MG PO Q6H PRN FOR PAIN ACTIVITY TOLERATED CALL DR ISRAEL OR GO TO THE EMERGENCY ROOM IF SYMPTOMS RETURN OR WORSENING Referrals: Emilio Israel MD [Staff Provider] -
--- NOTE | 2018-01-25 22:58 | CARD ---
APPROVED REPORT EKG Measurement Heart [id number] <Conclusion> Normal sinus rhythm Possible Left atrial enlargement Right bundle branch block Inferior infarct, age undetermined Anterior infarct, age undetermined Abnormal ECG
--- NOTE | 2018-01-26 02:38 | PN ---
DATE: 01/25/2018 FOLLOWUP RENAL CONSULTATION LOCATION: The patient is located in room 570, bed A. HISTORY OF PRESENT ILLNESS: Mr. Richards is a 72 years old elderly male with a past medical history significant for longstanding hypertension; diabetes; status post pacemaker placement; end-stage renal disease on hemodialysis three times a week Tuesday, , Tuesday; diverticulosis, status post treatment for diverticulitis of the transverse colon; status post left BKA, who was admitted with chief complaints of not feeling well, sleepy and decreased p.o. intake for few days. The patient was brought to the emergency room by the patient's son and found to have a very high blood pressure and also CT of the abdomen and pelvis consistent with diverticulitis of the colon in early stage. The patient is complaining of mild left lower quadrant pain today. No chest pain. No palpitation. No fever. No cough. No nausea, no vomiting, or no diarrhea. The patient attributes his pain because of the subcu heparin or Lovenox, not in distress. PHYSICAL EXAMINATION: VITAL SIGNS: As follows: Blood pressure 181/86, pulse 81, respirations 20, temperature 97.9, saturation 98%, height 6 feet 1 inch, weight is 203 pounds. GENERAL: Mr. Richards is a 72 years old elderly male, very pleasant, moderately built, moderately nourished, not in distress. HEENT: Pupils normal and reactive to light and accommodation. Conjunctivae pink. Sclerae anicteric. Tongue is moist, and trachea is midline. LUNGS: Symmetric on both sides. Bilateral breath sounds present. Clear on auscultation. CVS: [place] at the fifth intercostal space, midclavicular line. S1, S2 audible. No murmur or gallop. ABDOMEN: Normal in appearance, soft, tympanic. No guarding. No hepatosplenomegaly. DIAMOND SIZER:. The patient is alert, awake, oriented x3. Nonfocal neuro examination. EXTREMITIES: No cyanosis, no clubbing, no edema on the right leg, status post left BKA. MEDICATIONS: Reviewed and include, calcium acetate 2 tablets p.o. t.i.d., aspirin 81 mg daily, ibuprofen 600 mg p.o. t.i.d., metoprolol 50 mg p.o. daily, atorvastatin 20 mg p.o. daily, omeprazole 40 mg p.o. daily, hydralazine 50 mg p.o. every 8h., Cipro 250 mg p.o. b.i.d. and Flagyl 500 mg p.o. every 8h. LABORATORY DATA: As of 01/25/2018; WBC 5.7, hemoglobin 10.9, hematocrit is 32.8, platelets 148. Sodium 139, potassium 4.4, chloride 95, CO2 of 30, BUN 42, creatinine 6.7, glucose 186, calcium 8.6. Total bili 0.8, AST 21, ALT 10, alkaline phosphatase 104, total protein 8, albumin is 3.7. ASSESSMENT AND PLAN: In summary, Mr. Richards is a 72 years elderly male with a past medical history significant for hypertension, diabetes, end-stage renal disease, status post left below knee amputation, diverticulosis, status post diverticulitis of the transverse colon, status post pacemaker, who was recently discharged from [facility] after treating with IV antibiotics for transverse colon diverticulosis. Now, admitted with not feeling well and decreased p.o. intake, lethargy, found to have uncontrolled hypertension and CT abdomen and pelvis consistent with acute diverticulitis and also elevated high potassium on admission 6.0. 1. End-stage renal disease. Continue hemodialysis three times a week Tuesday, , Tuesday. 2. Hypertension. Continue his antihypertensive medications metoprolol and hydralazine. 3. Diabetes. 4. Diverticulitis. Continue antibiotics as per Dr. Emilio Israel. Continue low sodium, low potassium diet. The patient is worrying about going home as his son works in the night for the patient. We will try to discuss with social studies department chair in the dialysis center for possible home health aide. Thank you for allowing me to participate in your patient's care. Blanca Thakkar MD cc:
[2018-01-26 11:14] VITALS: BP 181/86; PULSE 83; RESP 20; TEMP 97.9; O2SAT 98
== END 2018-01-25 19:51 | disposition home or self-care (01) | DRG 391 ==
LOC: C.ER 23:32 → C.9E 01-24 02:29 → C.5S 01-24 06:50 → OBSVTOIN 01-24 15:56
PROVIDERS: ADMIT Internal Medicine; ATTEND Internal Medicine
DX: K57.32 Diverticulitis of large intestine without perforation or abscess without bleeding (principal); N18.6 End stage renal disease; I12.0 Hypertensive chronic kidney disease with stage 5 chronic kidney disease or end stage renal disease; E11.22 Type 2 diabetes mellitus with diabetic chronic kidney disease; E78.00 Pure hypercholesterolemia, unspecified; E87.5 Hyperkalemia; F17.200 Nicotine dependence, unspecified, uncomplicated; N40.0 Benign prostatic hyperplasia without lower urinary tract symptoms; Z95.0 Presence of cardiac pacemaker; Z99.2 Dependence on renal dialysis

== ENCOUNTER 2018-02-10 14:56 | Inpatient (IN) | payer MEDICARE, BC ==
[2018-02-10 15:05] VITALS: BMI 27.0
[2018-02-10 16:10] LABS: BASO % 0.8 % (0.0-2.0); EOS # 0.1 K/uL (0.0-0.7); EOS % 3.1 % (0.0-4.0); HEMOGLOBIN 12.2 g/dL (12.0-18.0); LYMPH # 1.1 K/uL (1.0-4.3); LYMPH % 23.5 % (20.0-40.0); MEAN CELL VOLUME 100.3 fL (80.0-94.0); MEAN CORPUSCULAR HEMOGLOBIN 33.2 pg (27.0-31.0); MEAN CORPUSCULAR HGB CONC 33.1 g/dL (33.0-37.0); MEAN PLATELET VOLUME 8.6 fL (7.2-11.7); MONO # 0.6 K/uL (0.0-0.8); MONO % 12.7 % (0.0-10.0); NEUT # 2.8 K/uL (1.8-7.0); NEUT % 59.9 % (50.0-75.0); NRBC % 0.1 % (0.0-2.0); RBC 3.66 Mil/uL (4.40-5.90); RED CELL DISTRIBUTION WIDTH 16.6 % (11.5-14.5); WHITE BLOOD COUNT 4.7 K/uL (4.8-10.8)
[2018-02-10 16:32] LABS: ALB/GLOB RATIO 0.9 (1.0-2.1); ALBUMIN 4.2 g/dL (3.5-5.0); ALT/SGPT < 6 U/L (21-72); AST/SGOT 42 U/L (17-59); BLOOD UREA NITROGEN 54 mg/dL (9-20); GFR AFRICAN-AMERICAN 10; GFR NON-AFRICAN AMERICAN 8; LIPASE 440 U/L (23-300)
--- NOTE | 2018-02-10 16:58 | C.PDOC ---
History Of Present Illness 72 y/o male presents to ED referred by PMD for ongoing abdominal pain. At ED patient complaints of LLQ abdominal tenderness and decreased po intake for "couple of days". Patient denies recent travel, fever, chills, diarrhea, vomiting or any other complaints at this time. Chief Complaint (Nursing): Abdominal Pain History Per: Patient History/Exam Limitations: no limitations Onset/Duration Of Symptoms: Days Current Symptoms Are (Timing): Still Present Location Of Pain/Discomfort: LLQ Past Medical History Reviewed: Historical Data, Nursing Documentation, Vital Signs Vital Signs: Last Vital Signs Temp 97.9 F 02/10/18 20:51 Pulse 95 H 02/10/18 20:51 Resp 20 02/10/18 20:51 BP 176/83 H 02/10/18 20:51 Pulse Ox 98 02/11/18 00:18 - Medical History PMH: HTN, Hypercholesterolemia, End Stage Renal Disease, Chronic Kidney Disease Surgical History: Pacemaker (12/17) - [facility] Procedures (01/04/18) BYPASS LEFT POPLITEAL ARTERY TO FOOT ARTERY, OPEN APPROACH (12/27/15) DETACHMENT AT LEFT 2ND TOE, MID, OPEN APPROACH (12/27/15) DETACHMENT AT LEFT 5TH TOE, COMPLETE, OPEN APPROACH (12/27/15) DETACHMENT AT LEFT LOWER LEG, HIGH, OPEN APPROACH (12/13/16) DIALYSIS ARTERIOVENOSTOM (04/08/14) EXCISION OF DESCENDING COLON, ENDO, DIAGN (12/22/17) EXCISION OF LEFT FOOT SKIN, EXTERNAL APPROACH (12/27/15) EXCISION OF LEFT GREATER SAPHENOUS VEIN, OPEN APPROACH (12/27/15) EXCISION OF STOMACH, PYLORUS, ENDO, DIAGN (12/22/17) FLUOROSCOPY OF LEFT HEART USING LOW OSMOLAR CONTRAST (12/27/15) FLUOROSCOPY OF MULT COR ART USING L OSM CONTRAST (12/27/15) HEMODIALYSIS (04/08/14) INSERTION OF ENDOTRACHEAL AIRWAY INTO TRACHEA, VIA OPENING (12/13/16) INSERTION OF INFUSION DEV INTO SUP VENA CAVA, PERC APPROACH (12/27/15) INSERTION OF INFUSION DEVICE INTO R ATRIUM, PERC APPROACH (08/20/15) MEASURE OF CARDIAC SAMPL & PRESSURE, L HEART, PERC APPROACH (12/27/15) PERFORMANCE OF CARDIAC OUTPUT, SINGLE, MANUAL (12/13/16) PERFORMANCE OF URINARY FILTRATION, MULTIPLE (12/13/16) PLAIN RADIOGRAPHY OF AORTA, BI LE ART USING L OSM CONTRAST (12/27/15) RESPIRATORY VENTILATION, LESS THAN 24 CONSECUTIVE HOURS (12/13/16) TRANSFUSE NONAUT RED BLOOD CELLS IN PERIPH VEIN, PERC (12/27/15) ULTRASONOGRAPHY OF SUPERIOR VENA CAVA, GUIDANCE (12/27/15) VENOUS CATHETERIZATION FOR RENAL DIALYSIS (04/08/14) Family History: States: No Known Family Hx - Social History Hx Tobacco Use: Yes Hx Alcohol Use: No Hx Substance Use: No - Immunization History Hx Tetanus Toxoid Vaccination: No Hx Influenza Vaccination: Yes Hx Pneumococcal Vaccination: Yes Review Of Systems Constitutional: Negative for: Fever, Chills Gastrointestinal: Positive for: Abdominal Pain. Negative for: Nausea, Vomiting , Diarrhea Musculoskeletal: Negative for: Back Pain Skin: Negative for: Rash Physical Exam - Physical Exam Appears: Non-toxic, No Acute Distress Skin: Normal Color, Warm, Dry, No Rash Head: Atraumatic, Normacephalic Oral Mucosa: Moist Neck: Normal ROM, Supple Cardiovascular: Rhythm Regular Respiratory: Rales (at bases b/l), No Rhonchi, No Wheezing Gastrointestinal/Abdominal: Bowel Sounds, Tenderness (LLQ), No Guarding, No Rebound Extremity: Capillary Refill (<2 seconds), No Deformity, Other (AV graft on left upper arm) Neurological/Psych: Oriented x3, Normal Speech, Normal Cognition ED Course And Treatment - Laboratory Results Result Diagrams: 02/10/18 16:04 02/10/18 16:04 ECG: Interpreted By Me, Viewed By Me ECG Rhythm: Sinus Rhythm, 1st Degree HB, R BBB Rate From EC (BPM) O2 Sat by Pulse Oximetry: 100 (RA) Pulse Ox Interpretation: Normal Progress Note: Spoke to Dr. Israel advised patient have CT with IV contrast. Patient to have dialysis tomorrow as scheduled Disposition - Disposition Disposition: HOSPITALIZED Disposition Time: 17:55 Condition: STABLE - Clinical Impression Clinical Impression: Diverticulitis, Abdominal pain - Scribe Statement The provider has reviewed the documentation as recorded by the Jake Clay All medical record entries made by the Scribe were at my direction and personally dictated by me. I have reviewed the chart and agree that the record accurately reflects my personal performance of the history, physical exam, medical decision making, and the department course for this patient. I have also personally directed, reviewed, and agree with the discharge instructions and disposition.
[2018-02-10] MEDS ORDERED: Iohexol 350mg/ml 100 ML ONE (17:56)
--- NOTE | 2018-02-10 18:06 | CT ---
PROCEDURE: CT Abdomen and Pelvis with contrast HISTORY: LLQ tenderness COMPARISON: CT scan of the abdomen and pelvis dated 01/24/2018. TECHNIQUE: Contrast dose: 100 mL Omnipaque 300 Radiation dose: Total exam DLP = 1110.8 mGy-cm. This CT exam was performed using one or more of the following dose reduction techniques: Automated exposure control, adjustment of the mA and/or kV according to patient size, and/or use of iterative reconstruction technique. FINDINGS: LOWER THORAX: Bibasilar atelectasis/ scarring. Cardiomegaly. Partially imaged cardiac device leads. LIVER: Left hepatic lobe subcapsular 1.0 cm cyst. No gross lesion or ductal dilatation. GALLBLADDER AND BILE DUCTS: Punctate calcified cholelithiasis without gallbladder wall thickening or pericholecystic fluid. PANCREAS: Unremarkable. No gross lesion or ductal dilatation. SPLEEN: Unremarkable. ADRENALS: Unremarkable. No mass. KIDNEYS AND URETERS: 1.6 x 1.6 cm left upper pole heterogeneously enhancing structure. Multiple bilateral sub centimeter cysts. Bilateral punctate nonobstructive nephrolithiasis. No hydronephrosis. VASCULATURE: Unremarkable. No aortic aneurysm. BOWEL: Extensive colonic diverticular disease with hazy change surrounding a few left lower quadrant diverticular. No obstruction. No gross mural thickening. APPENDIX: Normal appendix. PERITONEUM: Left fat containing inguinal hernia. No free fluid. No free air. LYMPH NODES: Unremarkable. No enlarged lymph nodes. BLADDER: Unremarkable. REPRODUCTIVE: Unremarkable. BONES: No acute fracture. Spinal and pelvic degenerative change is OTHER FINDINGS: New anterior abdominal wall soft tissue nodules (series 3, image 117, 123, 125). IMPRESSION: Distal descending colon/ sigmoid colon diverticulitis without significant change. No free air or adjacent fluid collection. New anterior abdominal wall soft tissue nodules, these may be related to injection granulomas. Clinical correlation is recommended. Additional stable findings as above.
[2018-02-10] MEDS ORDERED: Ciprofloxacin 400mg/200ml D5W 400 MG/200 ML BAG IVPB STA (18:15)
[2018-02-10] MEDS ORDERED: Ciprofloxacin 400mg/200ml D5W 400 MG/200 ML BAG IVPB ONE (18:40)
[2018-02-10] MEDS ORDERED: Morphine 4 MG/ML VIAL SC PRN (18:54)
[2018-02-10] MEDS ORDERED: Albuterol 0.083% Inhal Sol (2.5 mg/3 mL) UD INH STA (18:55)
[2018-02-10] MEDS: Ciprofloxacin 200mg/100ml D5W 100 ML IVPB SCH (19:01)
[2018-02-10] MEDS ORDERED: Albuterol 0.083% Inhal Sol (2.5 mg/3 mL) UD ONE (19:23)
[2018-02-10] MEDS ORDERED: Sod Polystyrene Sulf 15 gm/60 ml Susp PO ONE (21:25)
[2018-02-10] MEDS: metroNIDAZOLE IV 500 mg/100 ml 500 MG/100 ML BAG IVPB SCH (21:28)
[2018-02-10] MEDS: (Novolin R) Insulin Human Regular 100 units/ml vial SC SCH (22:00)
--- NOTE | 2018-02-10 23:40 | CP.PCM.HP ---
History of Present Illness - History of Present Illness History of Present Illness: CC: abdominal pain History Of Present Illness 72 y/o AA male well known to me with h/o type 2 DM, HTN, Hyperlipidemia who is complaint with diet, medication and follow up, presents to ED referred by me for ongoing abdominal pain, he had prior hospitalization for acute diverticulitis. At ED patient complaints of LLQ abdominal tenderness and decreased po intake for "couple of days". Patient denies recent travel, fever, chills, diarrhea, vomiting or any other complaints at this time.he has nausea, no vomitting, unable to eat anything associated with chills, rigors and body aches and pt is over all not feeling well, he has h/o AICD placement Present on Admission - Present on Admission Any Indicators Present on Admission: Yes Review of Systems - Review of Systems Systems not reviewed;Unavailable: Acuity of Condition - Constitutional Constitutional: Fatigue, Lethargy, Weakness - EENT Eyes: absent: As Per HPI, Blind Spots, Blurred Vision, Change in Vision, Decreased Night Vision, Diplopia, Discharge, Dry Eye, Exophthalmos, Floaters, Irritation, Itchy Eyes, Loss of Peripheral Vision, Pain, Photophobia, Requires Corrective Lenses, Sees Flashes, Spots in Vision, Tunnel Vision, Other Visual Disturbances, Loss of Vision, Other Nose/Mouth/Throat: absent: As Per HPI, Epistaxis, Nasal Congestion, Nasal Discharge, Nasal Obstruction, Nasal Trauma, Nose Pain, Post Nasal Drip, Sinus Pain, Sinus Pressure, Bleeding Gums, Change in Voice, Dental Pain, Dry Mouth, Dysphagia, Halitosis, Hoarsness, Lip Swelling, Mouth Lesions, Mouth Pain, Odynophagia, Sore Throat, Throat Swelling, Tongue Swelling, Facial Pain, Neck Pain, Neck Mass, Other - Cardiovascular Cardiovascular: Dyspnea on Exertion - Respiratory Respiratory: absent: As Per HPI, Cough, Dyspnea, Hemoptysis, Dyspnea on Exertion , Wheezing, Snoring, Stridor, Pain on Inspiration, Chest Congestion, Excessive Mucous Production, Change in Mucous Color, Pain with Coughing, Other - Gastrointestinal Gastrointestinal: Abdominal Pain, Nausea - Genitourinary Genitourinary: absent: As Per HPI, Change in Urinary Stream, Difficulty Urinating, Dysuria, Flank Pain, Hematuria, Pyuria, Nocturia, Urinary Incontinence, Urinary Frequency, Urinary Hesitance, Urinary Urgency, Voiding Freq/Small Amts, Freq UTI, Hx Renal/Bladder Calculi, Hx /Renal Surgery, Bladder Distension, Other Past Patient History - Infectious Disease Hx of Infectious Diseases: None - Past Medical History & Family History Past Medical History?: Yes - Past Social History Smoking Status: Light Smoker < 10 Cigarettes Daily - CARDIAC Hx Hypercholesterolemia: Yes Hx Hypertension: Yes Hx Pacemaker: Yes (12/17) - PULMONARY Other/Comment: light smoker - NEUROLOGICAL Hx Alzheimer's Disease: No - HEENT Hx HEENT Problems: Yes Other/Comment: left eye vision problems - RENAL Hx Chronic Kidney Disease: Yes - ENDOCRINE/METABOLIC Hx Diabetes Mellitus Type 2: Yes - HEMATOLOGICAL/ONCOLOGICAL Hx Blood Disorders: No - INTEGUMENTARY Hx Dermatological Problems: No - MUSCULOSKELETAL/RHEUMATOLOGICAL Hx Falls: No - GASTROINTESTINAL Hx Gastrointestinal Disorders: Yes Hx Nausea: Yes - GENITOURINARY/GYNECOLOGICAL Hx Genitourinary Disorders: No - PSYCHIATRIC Hx Substance Use: No - SURGICAL HISTORY Hx Surgeries: Yes Hx Amputation: Yes (left bka with prosthesis) Hx Angiogram: Yes Hx Herniorrhaphy: Yes Hx Vascular Access Device: Yes Other/Comment: Left BK amputation - ANESTHESIA Hx Anesthesia: Yes Hx Anesthesia Reactions: No Hx Malignant Hyperthermia: No Meds Allergies/Adverse Reactions: Allergies Allergy/AdvReac Type Severity Reaction Status Date / Time No Known Allergies Allergy Verified 02/10/18 15:04 Physical Exam - Constitutional Appears: In Acute Distress, Chronically Ill - Head Exam Head Exam: ATRAUMATIC, NORMAL INSPECTION, NORMOCEPHALIC - Eye Exam Eye Exam: EOMI, Normal appearance, PERRL Pupil Exam: NORMAL ACCOMODATION, PERRL - Respiratory Exam Respiratory Exam: Clear to Auscultation Bilateral, NORMAL BREATHING PATTERN - GI/Abdominal Exam GI & Abdominal Exam: Normal Bowel Sounds, Soft, Tenderness Additional comments: LLq pain - Rectal Exam Rectal Exam: Deferred Results - Vital Signs Recent Vital Signs: Last Vital Signs Temp 97.9 F 02/10/18 20:51 Pulse 95 H 02/10/18 20:51 Resp 20 02/10/18 20:51 BP 176/83 H 02/10/18 20:51 Pulse Ox 98 02/10/18 20:51 - Labs Result Diagrams: 02/10/18 16:04 02/10/18 16:04 Labs: Laboratory Results - last 24 hr 02/10/18 02/10/18 02/10/18 16:04 16:04 21:39 WBC 4.7 L RBC 3.66 L Hgb 12.2 Hct 36.7 MCV 100.3 H MCH 33.2 H MCHC 33.1 RDW 16.6 H Plt Count 169 MPV 8.6 Neut % (Auto) 59.9 Lymph % (Auto) 23.5 [place] % (Auto) 12.7 H Eos % (Auto) 3.1 Baso % (Auto) 0.8 Neut # (Auto) 2.8 Lymph # (Auto) 1.1 [place] # (Auto) 0.6 Eos # (Auto) 0.1 Baso # (Auto) 0.0 Sodium 142 Potassium 5.7 H Chloride 101 Carbon Dioxide 23 Anion Gap 24 H BUN 54 H Creatinine 6.9 H Est GFR ( Amer) 10 Est GFR (Non-Af Amer) 8 POC Glucose (mg/dL) 234 H Random Glucose 128 H Calcium 8.0 L Total Bilirubin 1.2 AST 42 ALT < 6 L D Alkaline Phosphatase 155 H D Troponin I 0.0290 Total Protein 9.0 H Albumin 4.2 Globulin 4.8 H Albumin/Globulin Ratio 0.9 L Lipase 440 H Assessment & Plan (1) Abdominal pain Assessment and Plan: admit start pt on antibiotics' GI/ Surgical consult Status: Acute (2) Diverticulitis Status: Acute (3) CKD (chronic kidney disease) Status: Acute (4) ESRD needing dialysis Status: Acute (5) Hypertension Status: Chronic Priority: Low
[2018-02-11] MEDS: metroNIDAZOLE IV 500 mg/100 ml 500 MG/100 ML BAG IVPB SCH ×3 (04:50→20:36)
[2018-02-11] MEDS: metroNIDAZOLE IV 500 mg/100 ml 500 MG/100 ML BAG IVPB STA (04:55)
[2018-02-11] MEDS: Ciprofloxacin 200mg/100ml D5W 100 ML IVPB SCH ×2 (06:16→17:37)
[2018-02-11] MEDS: (Novolin R) Insulin Human Regular 100 units/ml vial SC SCH ×4 (07:45→21:30)
[2018-02-11] MEDS: Pantoprazole 40 mg EC Tab PO SCH (09:55)
[2018-02-11] MEDS: Metoprolol Succinate 50 mg XL Tab PO SCH (09:56)
--- NOTE | 2018-02-11 14:47 | CP.PCM.PN ---
Subjective - Date & Time of Evaluation Date of Evaluation: 02/11/18 Time of Evaluation: 14:46 - Subjective Subjective: pt is seen and examined by me during hd, follow up consult is dictated #[id number] s/p hd , uf 2.7 lit Objective - Vital Signs/Intake and Output Vital Signs (last 24 hours): Temp Pulse Resp BP Pulse Ox 97.3 F L 92 H 20 200/97 H 100 02/11/18 13:30 02/11/18 13:30 02/11/18 13:30 02/11/18 14:31 02/11/18 13:30 Intake and Output: 02/11/18 02/11/18 06:59 18:59 Intake Total 275 Balance 275 - Medications Medications: Current Medications Aspirin (Ecotrin) 81 mg PO DAILY [facility] Last Admin: 02/11/18 09:56 Dose: 81 mg Calcitriol (Rocaltrol) 0.25 mcg PO DAILY [facility] Last Admin: 02/11/18 09:56 Dose: 0.25 mcg Calcium Acetate (Phoslo) 667 mg PO TIDCC [facility] Last Admin: 02/11/18 12:15 Dose: 667 mg Finasteride (Proscar) 5 mg PO HS [facility] Last Admin: 02/10/18 22:01 Dose: 5 mg Heparin Sodium (Porcine) (Heparin) 5,000 units SC Q8 [facility] Last Admin: 02/11/18 13:08 Dose: Not Given Hydralazine HCl (Apresoline) 50 mg PO Q8 [facility] Last Admin: 02/11/18 13:07 Dose: Not Given Ciprofloxacin (Cipro 200mg/100ml D5w) 100 mls @ 67 mls/hr IVPB Q12H [facility]W PRN Reason: Protocol Last Admin: 02/11/18 06:16 Dose: 67 mls/hr Metronidazole (Flagyl) 500 mg in 100 mls @ 100 mls/hr IVPB Q8H [facility]W PRN Reason: Protocol Last Admin: 02/11/18 13:07 Dose: Not Given Insulin Human Regular (Novolin R) 0 unit SC ACHS [facility]W PRN Reason: Protocol Last Admin: 02/11/18 12:15 Dose: Not Given Metoprolol Succinate (Toprol Xl) 50 mg PO DAILY [facility] Last Admin: 02/11/18 09:56 Dose: 50 mg Morphine Sulfate (Morphine) 2 mg SC Q4 PRN PRN Reason: Pain, moderate (4-7) Pantoprazole Sodium (Protonix Ec Tab) 40 mg PO DAILY [facility] Last Admin: 02/11/18 09:55 Dose: 40 mg Rosuvastatin Calcium (Crestor) 10 mg PO HS [facility] Last Admin: 02/10/18 21:27 Dose: 10 mg - Labs Labs: 02/10/18 16:04 02/11/18 14:10
[2018-02-11] MEDS: Nitroglycerin 2% Ointment Foilpak UD TOP SCH (20:36)
--- NOTE | 2018-02-11 23:10 | CP.PCM.PN ---
Subjective - Date & Time of Evaluation Date of Evaluation: 02/11/18 Time of Evaluation: 18:30 - Subjective Subjective: Pt seen and examined Objective - Vital Signs/Intake and Output Vital Signs (last 24 hours): Temp Pulse Resp BP Pulse Ox 98.5 F 84 18 183/85 H 99 02/11/18 22:10 02/11/18 22:10 02/11/18 17:24 02/11/18 22:10 02/11/18 22:10 Intake and Output: 02/11/18 02/12/18 18:59 06:59 Intake Total 200 Balance 200 - Medications Medications: Current Medications Aspirin (Ecotrin) 81 mg PO DAILY [facility] Last Admin: 02/11/18 09:56 Dose: 81 mg Calcitriol (Rocaltrol) 0.25 mcg PO DAILY [facility] Last Admin: 02/11/18 09:56 Dose: 0.25 mcg Calcium Acetate (Phoslo) 667 mg PO TIDCC [facility] Last Admin: 02/11/18 17:38 Dose: 667 mg Finasteride (Proscar) 5 mg PO HS [facility] Last Admin: 02/11/18 21:22 Dose: 5 mg Heparin Sodium (Porcine) (Heparin) 5,000 units SC Q8 [facility] Last Admin: 02/11/18 21:22 Dose: 5,000 units Hydralazine HCl (Apresoline) 50 mg PO Q8 [facility] Last Admin: 02/11/18 21:22 Dose: 50 mg Ciprofloxacin (Cipro 200mg/100ml D5w) 100 mls @ 67 mls/hr IVPB Q12H [facility] PRN Reason: Protocol Last Admin: 02/11/18 17:37 Dose: 67 mls/hr Metronidazole (Flagyl) 500 mg in 100 mls @ 100 mls/hr IVPB Q8H [facility] PRN Reason: Protocol Last Admin: 02/11/18 20:36 Dose: 100 mls/hr Insulin Human Regular (Novolin R) 0 unit SC ACHS [facility] PRN Reason: Protocol Last Admin: 02/11/18 21:30 Dose: Not Given Metoprolol Succinate (Toprol Xl) 50 mg PO DAILY [facility] Last Admin: 02/11/18 09:56 Dose: 50 mg Morphine Sulfate (Morphine) 2 mg SC Q4 PRN PRN Reason: Pain, moderate (4-7) Nitroglycerin (Nitro-Bid 2% Oint) 1 ea TOP Q6 [facility] Last Admin: 02/11/18 20:36 Dose: 1 ea Pantoprazole Sodium (Protonix Ec Tab) 40 mg PO DAILY [facility] Last Admin: 02/11/18 09:55 Dose: 40 mg Rosuvastatin Calcium (Crestor) 10 mg PO HS [facility] Last Admin: 02/11/18 21:22 Dose: 10 mg - Labs Labs: 02/10/18 16:04 02/11/18 14:10 - Constitutional Appears: No Acute Distress - Head Exam Head Exam: ATRAUMATIC, NORMAL INSPECTION, NORMOCEPHALIC - Eye Exam Eye Exam: EOMI, Normal appearance, PERRL Pupil Exam: NORMAL ACCOMODATION, PERRL - Respiratory Exam Respiratory Exam: Clear to Ausculation Bilateral, NORMAL BREATHING PATTERN - Cardiovascular Exam Cardiovascular Exam: REGULAR RHYTHM, +S1, +S2. absent: Murmur - GI/Abdominal Exam GI & Abdominal Exam: Soft, Normal Bowel Sounds. absent: Tenderness Assessment and Plan (1) Abdominal pain Status: Acute (2) Diverticulitis Status: Acute (3) CKD (chronic kidney disease) Status: Acute (4) ESRD needing dialysis Status: Acute (5) Hypertension Status: Chronic
[2018-02-12] MEDS: Nitroglycerin 2% Ointment Foilpak UD TOP SCH ×4 (00:12→17:20)
--- NOTE | 2018-02-12 03:57 | PN ---
DATE: 02/11/2018 LOCATION: The patient is located in room 653, bed B. REQUESTED BY: Dr. Emilio Israel. REASON FOR FOLLOWUP: End-stage renal disease, hyperkalemia, for further evaluation. HISTORY OF PRESENT ILLNESS: Mr. Richards is a 72-year-old elderly male with a past medical history significant for longstanding hypertension, diabetes, end-stage renal disease, diverticulosis, status post treatment for diverticulitis, hyperkalemia, was admitted with chief complaints of left lower quadrant abdominal discomfort and decreased appetite. The patient was found to have hyperkalemia, status post Kayexalate 30 gm p.o. x1 dose last night. The patient was seen and examined during dialysis. The patient is feeling slightly better, not in distress. No chest pain or palpitation. No fever. No cough. No nausea. No vomiting. No swelling of the legs. PHYSICAL EXAMINATION: VITAL SIGNS: This afternoon, blood pressure 171/92, pulse 92, respirations 20, temperature 97.3, saturation 100%. Height 6 feet 1 inch, weight is 202 pounds. GENERAL: Mr. Richards is a 72-year-old elderly male, well built, well nourished, not in distress. HEENT: Pupils normal and reactive to light and accommodation. Conjunctivae pink. Sclerae nonicteric. Tongue is moist. Trachea is midline. LUNGS: Symmetric on both sides. Bilateral breath sounds present. Clear to auscultation. CVS: [place] at the fifth intercostal space, midclavicular area. S1 and S2 audible. No murmur or gallop. ABDOMEN: Normal in appearance. Soft, tympanic. No guarding. No rigidity. No hepatosplenomegaly. WATER USE INSPECTOR: The patient is alert, awake, and oriented x3. Nonfocal neuro examination. Cranial nerves II through XII grossly intact. Sensory and motor system is within normal limits. EXTREMITIES: No cyanosis, no clubbing, no edema on the right leg. Status post left BKA. MEDICATIONS: His current medications include as follows; hydralazine 50 mg p.o. every 8 hours, ciprofloxacin 200 mg every 12 hours, Crestor 10 mg at bedtime, aspirin 81 mg daily, Flagyl 500 mg IV piggyback every 8 hours, heparin 5000 units subcu every 8 hours, morphine 2 mg subcu every 4 hours, Nitro-Bid ointment 2% one inch topical every 6 hours, Novolin R for sliding scale, PhosLo 667 mg p.o. t.i.d., Proscar 5 mg p.o. at bedtime, Protonix 40 mg p.o. daily, Rocaltrol 0.25 mcg p.o. daily, and Toprol-XL 50 mg p.o. daily. LABORATORY DATA: Include as follows; as of 02/10/2018, WBC 4.7, hemoglobin 12.2, hematocrit is 36.7, platelets 169. Sodium 142, potassium 5.7, chloride 101, CO2 23, BUN 54, creatinine 6.9, glucose 128, calcium 8. Total bili 1.2, AST 42, ALT is less than 6, alkaline phosphatase 155. Troponin 0.029, total protein and albumin is 4.2, lipase is 440. His repeat BMP as of this morning; sodium 138, potassium 4.4, chloride 100, CO2 of 21, BUN 62, creatinine 8.4, glucose 107, calcium 8.0, phosphorus 3.9. OTHER REPORTS: CT of the abdomen and pelvis as of 02/10/2018. Distal descending colon, sigmoid colon diverticulitis without significant change. No free air or adjacent fluid collection, new anterior abdominal wall soft tissue nodules. These may related to injection granulomas, clinical correlation is recommended. ASSESSMENT AND PLAN: In summary, Mr. Richards is a 72-year-old elderly male with a history of hypertension, diabetes, status post pacemaker, end-stage renal disease, diverticulitis, was admitted with lower abdominal discomfort and decreased appetite and elevated potassium. 1. End-stage renal disease. Continue hemodialysis three times a week, Tuesday, , Tuesday. 2. Hyperkalemia, most likely secondary to known endstage renal disease, noncompliance with the diet, status post Kayexalate last night. Repeat potassium is within normal limits this morning. 3. Hypertension. 4. Diabetes. 5. Diverticulitis. Continue with Flagyl and Cipro as per PMD. Follow up with GI. We will continue his current medication, Rocaltrol p.o. daily. Continue Protonix. Continue Proscar. We will follow with you. Thank you for allowing me to participate in your patient's care. Also continue hydralazine and metoprolol. Case care discussed with Dr. Israel in rounds. Blanca Thakkar MD
[2018-02-12] MEDS: metroNIDAZOLE IV 500 mg/100 ml 500 MG/100 ML BAG IVPB SCH ×3 (05:33→21:52)
[2018-02-12] MEDS: Ciprofloxacin 200mg/100ml D5W 100 ML IVPB SCH ×2 (06:49→17:20)
[2018-02-12 07:47] LABS: HEMOGLOBIN 11.5 g/dL (12.0-18.0); MEAN CELL VOLUME 99.7 fL (80.0-94.0); MEAN CORPUSCULAR HEMOGLOBIN 33.3 pg (27.0-31.0); MEAN CORPUSCULAR HGB CONC 33.4 g/dL (33.0-37.0); MEAN PLATELET VOLUME 8.9 fL (7.2-11.7); RBC 3.46 Mil/uL (4.40-5.90); RED CELL DISTRIBUTION WIDTH 16.4 % (11.5-14.5); WHITE BLOOD COUNT 4.3 K/uL (4.8-10.8)
[2018-02-12 08:02] LABS: CALCIUM 8.3 mg/dl (8.6-10.4)
[2018-02-12] MEDS: (Novolin R) Insulin Human Regular 100 units/ml vial SC SCH ×3 (08:06→17:21)
[2018-02-12] MEDS: Metoprolol Succinate 50 mg XL Tab PO SCH (10:05)
[2018-02-12] MEDS: Pantoprazole 40 mg EC Tab PO SCH (10:05)
--- NOTE | 2018-02-12 11:55 | PN ---
DATE: LOCATION: [facility] bed B SUBJECTIVE: This 72-year-old male seen initially for GI consultation on 02/11/2018 as requested by the admitting MD. They examined again today, was reported with elevated blood pressure and intermittent period of abdominal pain with mild nausea with very poor oral intake recently, but no reported active bleeding. No chills or fever. The entire chart is reviewed, including, but not limited to, most recent lab and radiology study results, current and previous medication list, current and previous medical events. The patient is still on hemodialysis and the most recent upper endoscopy done about 2 months ago indicative of gastritis, the latest colonoscopy done as per the record on 12/22/2017 also. Official CAT scan of the abdomen and pelvis was seen indicative of left-sided diverticulosis with diverticulitis. PHYSICAL EXAMINATION: GENERAL: A 72-year-old male appears to be awake, alert, and oriented. VITAL SIGNS: Afebrile with pulse of 84, respiratory rate 20 to 22, blood pressure of 188/88. HEENT: Showed pale and dry oral mucous membrane mildly, nonicteric sclerae. LUNGS: Scattered mild crepitation. Decreased air entry at bases. HEART: Positive S1 and S2. ABDOMEN: Soft with mild generalized tenderness and mild distention with hypoactive bowel sounds. No mass or organomegaly. No rebound tenderness or guarding. RECTAL: Positive stool. empty. EXTREMITIES: Without significant clubbing, cyanosis, or edema. NEUROLOGIC: No reported new neurologic deficits, sensory or motor. : AV fistula is intact. LABORATORY DATA: Most recent lab results showed normal CBC with mildly low white blood cells and BUN of 62, creatinine 8.4, CO2 content of 21 indicative of metabolic acidosis with low calcium, but elevated lipase level two days ago to 440. No active bleeding reported. Today's lab is still pending, but blood glucose level today 138. IMPRESSION: 1. Diverticulosis with acute diverticulitis mainly on the left side of the colon. 2. Acute pancreatitis. 3. Re-exacerbation of peptic ulcer disease. 4. Endstage renal disease, on hemodialysis. 5. Poorly-controlled hypertension. 6. Hyperlipidemia by history. 7. History of cardiac arrhythmia with status post pacemaker insertion. SUGGESTIONS: 1. Agree with your plan. 2. Follow up on lipase, amylase level. 3. Adjust oral intake. No citrus. No seeds. 4. Antireflux measure. 5. No need for aggressive GI endoscopic evaluation, and the patient has acute episode of diverticulitis as well as pancreatitis in the meantime. Further recommendations to follow. Frank Chamorro MD
[2018-02-12] MEDS: metroNIDAZOLE IV 500 mg/100 ml 500 MG/100 ML BAG IVPB STA (13:15)
--- NOTE | 2018-02-12 19:24 | CP.PCM.PN ---
Subjective - Date & Time of Evaluation Date of Evaluation: 02/12/18 Time of Evaluation: 19:23 - Subjective Subjective: pt is seen and examined, follow up consult is dictated #[id number] Objective - Vital Signs/Intake and Output Vital Signs (last 24 hours): Temp Pulse Resp BP Pulse Ox 98 F 95 H 20 140/77 96 02/12/18 16:20 02/12/18 16:20 02/12/18 16:20 02/12/18 16:20 02/12/18 16:20 - Medications Medications: Current Medications Aspirin (Ecotrin) 81 mg PO DAILY [facility] Last Admin: 02/12/18 10:06 Dose: 81 mg Calcitriol (Rocaltrol) 0.25 mcg PO DAILY [facility] Last Admin: 02/12/18 10:06 Dose: 0.25 mcg Calcium Acetate (Phoslo) 667 mg PO TIDCC [facility] Last Admin: 02/12/18 17:20 Dose: 667 mg Finasteride (Proscar) 5 mg PO HS [facility] Last Admin: 02/11/18 21:22 Dose: 5 mg Heparin Sodium (Porcine) (Heparin) 5,000 units SC Q8 [facility] Last Admin: 02/12/18 13:14 Dose: 5,000 units Hydralazine HCl (Apresoline) 75 mg PO Q8 [facility] Last Admin: 02/12/18 13:13 Dose: 75 mg Ciprofloxacin (Cipro 200mg/100ml D5w) 100 mls @ 67 mls/hr IVPB Q12H [facility] PRN Reason: Protocol Last Admin: 02/12/18 17:20 Dose: 67 mls/hr Metronidazole (Flagyl) 500 mg in 100 mls @ 100 mls/hr IVPB Q8H [facility] PRN Reason: Protocol Last Admin: 02/12/18 13:15 Dose: 100 mls/hr Insulin Human Regular (Novolin R) 0 unit SC ACHS [facility] PRN Reason: Protocol Last Admin: 02/12/18 17:21 Dose: Not Given Metoprolol Succinate (Toprol Xl) 100 mg PO DAILY [facility] Morphine Sulfate (Morphine) 2 mg SC Q4 PRN PRN Reason: Pain, moderate (4-7) Nitroglycerin (Nitro-Bid 2% Oint) 1 ea TOP Q6 [facility] Last Admin: 02/12/18 17:20 Dose: 1 ea Pantoprazole Sodium (Protonix Ec Tab) 40 mg PO DAILY [facility] Last Admin: 02/12/18 10:05 Dose: 40 mg Rosuvastatin Calcium (Crestor) 10 mg PO [facility] Last Admin: 02/11/18 21:22 Dose: 10 mg - Labs Labs: 02/12/18 07:32 02/12/18 07:32
--- NOTE | 2018-02-12 22:35 | CP.PCM.PN ---
Subjective - Date & Time of Evaluation Date of Evaluation: 02/12/18 Time of Evaluation: 18:00 - Subjective Subjective: PT IS SEEN AND EXAMINED he is on clear liquid diet LLQA tenderness is improved Objective - Vital Signs/Intake and Output Vital Signs (last 24 hours): Temp Pulse Resp BP Pulse Ox 98 F 83 18 177/88 H 99 02/12/18 16:20 02/12/18 20:41 02/12/18 20:41 02/12/18 20:41 02/12/18 20:41 - Medications Medications: Current Medications Aspirin (Ecotrin) 81 mg PO DAILY [facility] Last Admin: 02/12/18 10:06 Dose: 81 mg Calcitriol (Rocaltrol) 0.25 mcg PO DAILY [facility] Last Admin: 02/12/18 10:06 Dose: 0.25 mcg Calcium Acetate (Phoslo) 667 mg PO TIDCC [facility] Last Admin: 02/12/18 17:20 Dose: 667 mg Finasteride (Proscar) 5 mg PO HS [facility] Last Admin: 02/12/18 21:50 Dose: 5 mg Heparin Sodium (Porcine) (Heparin) 5,000 units SC Q8 [facility] Last Admin: 02/12/18 21:50 Dose: 5,000 units Hydralazine HCl (Apresoline) 75 mg PO Q8 [facility] Last Admin: 02/12/18 21:50 Dose: 75 mg Ciprofloxacin (Cipro 200mg/100ml D5w) 100 mls @ 67 mls/hr IVPB Q12H [facility] PRN Reason: Protocol Last Admin: 02/12/18 17:20 Dose: 67 mls/hr Metronidazole (Flagyl) 500 mg in 100 mls @ 100 mls/hr IVPB Q8H [facility] PRN Reason: Protocol Last Admin: 02/12/18 21:52 Dose: 100 mls/hr Insulin Human Regular (Novolin R) 0 unit SC ACHS [facility] PRN Reason: Protocol Last Admin: 02/12/18 17:21 Dose: Not Given Metoprolol Succinate (Toprol Xl) 100 mg PO DAILY [facility] Morphine Sulfate (Morphine) 2 mg SC Q4 PRN PRN Reason: Pain, moderate (4-7) Nitroglycerin (Nitro-Bid 2% Oint) 1 ea TOP Q6 [facility] Last Admin: 02/12/18 17:20 Dose: 1 ea Pantoprazole Sodium (Protonix Ec Tab) 40 mg PO DAILY [facility] Last Admin: 02/12/18 10:05 Dose: 40 mg Rosuvastatin Calcium (Crestor) 10 mg PO HS [facility] Last Admin: 02/12/18 21:51 Dose: 10 mg - Labs Labs: 02/12/18 07:32 02/12/18 07:32 - Constitutional Appears: No Acute Distress - Head Exam Head Exam: ATRAUMATIC, NORMAL INSPECTION, NORMOCEPHALIC - Eye Exam Eye Exam: EOMI, Normal appearance, PERRL Pupil Exam: NORMAL ACCOMODATION, PERRL - Cardiovascular Exam Cardiovascular Exam: REGULAR RHYTHM, +S1, +S2. absent: Murmur - GI/Abdominal Exam GI & Abdominal Exam: Soft, Tenderness, Normal Bowel Sounds Assessment and Plan (1) Abdominal pain Status: Acute (2) Diverticulitis Status: Acute (3) CKD (chronic kidney disease) Status: Acute (4) ESRD needing dialysis Status: Acute (5) Hypertension Status: Chronic
[2018-02-13] MEDS: Nitroglycerin 2% Ointment Foilpak UD TOP SCH ×4 (00:03→17:37)
--- NOTE | 2018-02-13 03:56 | CON ---
DATE: 02/11/2018 LOCATION: 653, bed B. This is from Dr. Frank Chamorro, to Dr. Emilio Israel. I was called for GI consultation by the admitting medical team. The patient was seen and fully examined on 02/11/2018, as requested by the admitting MD. The entire chart is reviewed including but not limited to most recent lab and radiology study results, current and previous the medication list, current and the previous medical events, allergic to medication list, as well as all the available current and previous medical record. Case discussed with the staff as well as other specialty development consultant. HISTORY: This is a 72-year-old male who was admitted to the hospital through the emergency room with main complaint of persistent abdominal pain, mainly in the mid epigastric as well as left lower quadrant area, associated with mild abdominal distention, poor oral intake, generalized weakness and malaise but denied any chest pains, significant palpitation or shortness of breath. No reported recent history of chills or fever or evidence of active bleeding as the patient's statement. PAST MEDICAL HISTORY: Including but not limited to 1. End-stage renal disease, on hemodialysis. 2. Hypertension. 3. Cardiac arrhythmias with status post pacemaker insertion. 4. Hypertension. 5. Peptic ulcer disease. 6. Diverticulosis. As we mentioned, the patient had endoscopic evaluation of the upper and lower GI tract over the last few weeks, see official reports. CURRENT MEDICATIONS: Medication list post admission is reviewed. FAMILY HISTORY: Unknown. SOCIAL HISTORY: Positive for cigarette smoking but no reported recent history of alcohol intake. ALLERGIES: ALLERGIES TO MEDICATIONS, UNCLEAR. MEDICATION LIST: Post admission, reviewed. After being admitted to hospital, initial blood workup showed normal CBC, increased blood glucose level at 120, potassium 5.7, BUN 54, creatinine 6.9. Abdominal and pelvic CAT scan was indicative of diverticulosis with diverticulitis as indicated by the primary report. PHYSICAL EXAMINATION: GENERAL: A 72-year-old female, appears to be awake, alert, oriented, complaining of abdominal pain in the mid epigastric and left lower quadrant area, with mild nausea and dyspepsia. The patient initially is afebrile with pulse of 92, respiratory rate of 20 to 22, blood pressure 168/80. HEENT: Show pale, dry oral mucoid membrane, nonicteric sclerae. LYMPH NODES: No lymphadenitis or lymphadenopathy. LUNGS: Scattered mild crepitation, mild decrease of air entry bilaterally. HEART: Positive S1 and S2, with increased rate. ABDOMEN: Soft, mild distention with generalized tenderness mainly in the midepigastric area as well as left lateral quadrant and left lower quadrant area. Bowel sounds are hypoactive. No mass or organomegaly. No rebound tenderness or guarding. RECTAL: The patient refused. EXTREMITIES: Without significant clubbing, cyanosis, or edema. NEUROLOGIC: No reported new neurological deficits, sensory, or motor. No reported new focal deficits. Peripheral pulses are present bilaterally but weak. IMPRESSION: 1. Re-exacerbation of peptic ulcer disease. 2. Diverticulosis with acute episodes of diverticulitis. 3. Multiple past medical history including but not limited to hypertension, hyperlipidemia, end stage renal disease, cardiac arrest now status post pacemaker insertion. 4. Electrolyte imbalance secondary to above. SUGGESTION: 1. Agree with your plan. 2. Cancer markers including CEA. 3. Flagyl IV. 4. Vancomycin p.o. 5. Complete stool analysis including C. diff ova and parasite. 6. Proton pump inhibitors IV. 7. Keep the patient n.p.o. with peripheral hyperalimentation. 8. Further recommendation to follow. 9. No need for aggressive GI workup in the meantime due to the patient's clinical and radiological evidence of acute diverticulitis. Thank you for letting me participate in your patient's case management. Frank Chamorro MD
[2018-02-13] MEDS: metroNIDAZOLE IV 500 mg/100 ml 500 MG/100 ML BAG IVPB SCH ×3 (04:33→21:44)
--- NOTE | 2018-02-13 04:37 | PN ---
DATE: 02/12/2018 FOLLOWUP RENAL CONSULTATION LOCATION: The patient is located in room 653, bed B. REQUESTED BY: Emilio Israel MD REASON FOR FOLLOWUP: End-stage renal disease, continuation of hemodialysis. HISTORY OF PRESENT ILLNESS: Mr. Richards is a 72 years old elderly male with a past medical history significant for longstanding hypertension, diabetes, status post pacemaker, diverticulitis, end-stage renal disease on hemodialysis three times a week, on Tuesday, , Tuesday, was admitted with chief complaints of feeling weak and also decreased appetite and left lower quadrant abdominal discomfort. The patient is not in distress. The patient underwent hemodialysis yesterday. Denies any chest pain or palpitation. Denies any fever or cough. Denies any shortness of breath today. PHYSICAL EXAMINATION: VITAL SIGNS: As follows, blood pressure 140/77, pulse 95, respirations 20, temperature 98, saturation 96%. Height 6 feet 1 inch, weight is 202 pounds. GENERAL: Mr. Richards is a 72 years old elderly male, moderately built, moderately nourished, not in acute distress. HEENT: Pupils normal and reactive to light and accommodation. Conjunctivae pink. Sclerae anicteric. Tongue is moist. Trachea is midline. LUNGS: Symmetric on both sides. Bilateral breath sounds present. Clear to auscultation. CVS: [place] at the fifth intercostal space, midclavicular line. S1, S2 audible. No murmur or gallop. ABDOMEN: Normal in appearance, slightly distended, soft, tympanic. No guarding. No rigidity. No hepatosplenomegaly. RUBBER PRESS TENDER: The patient is alert, awake, and oriented x3. Nonfocal neuro examination. Cranial nerves II through XII grossly intact. Sensory and motor system within normal limits. EXTREMITIES: No cyanosis, no clubbing, no edema of the right leg, status post left BKA. MEDICATIONS: His current medications include as follows, hydralazine 75 mg p.o. every 8 hours, Cipro 200 mg every 12 hours, Crestor 10 mg at bedtime, aspirin 81 mg daily, Flagyl 500 mg IV every 8 hours, subcu heparin 5000 every 8 hours, morphine 2 mg subcu 4 hours, nitroglycerin ointment 1 inch topical every 6 hours, Novolin R for sliding scale, calcium acetate 661 mg p.o. t.i.d., Proscar 5 mg p.o. at bedtime, Protonix 40 mg p.o. daily, Rocaltrol 0.25 mcg p.o. daily, Toprol XL 100 mg p.o. daily. LABORATORY DATA: Include as follows as of 02/12/2018, WBC 4.3, hemoglobin 11.5, hematocrit is 34.5, platelets 150. Sodium 138, potassium 3.6, chloride 97, CO2 of 27, BUN 34, creatinine 6.2, glucose is 124, calcium 8.3, alpha-fetoprotein 1.9, and CEA is 5.6. IMPRESSION: In summary, Mr. Richards is 72 years old elderly male with history of longstanding hypertension, diabetes, end-stage renal disease, status post left below knee amputation, diverticulosis and diverticulitis, was admitted with decreased p.o. intake and abdominal discomfort and weakness and high potassium. 1. End-stage renal disease. Continue hemodialysis three times a week Tuesday, , and Tuesday. 2. Diverticulitis of the sigmoid region. Continue Cipro and Flagyl. 3. Uncontrolled hypertension. Agreed to increase hydralazine and metoprolol, and also advised low-sodium diet. 4. Diabetes. 5. Diverticulitis. Continue antibiotics as per Dr. Israel. Thank you for allowing me to participate in your patient's care. Blanca Thakkar MD
[2018-02-13] MEDS: Ciprofloxacin 200mg/100ml D5W 100 ML IVPB SCH ×2 (05:41→17:41)
[2018-02-13 07:09] LABS: AMYLASE 111 U/L (30-110); LIPASE 239 U/L (23-300)
[2018-02-13] MEDS: (Novolin R) Insulin Human Regular 100 units/ml vial SC SCH ×4 (07:31→21:43)
[2018-02-13] MEDS: Metoprolol Succinate 100 mg XL Tab PO SCH (10:18)
[2018-02-13] MEDS: Pantoprazole 40 mg EC Tab PO SCH (10:18)
--- NOTE | 2018-02-13 13:34 | PN ---
DATE: LOCATION: [facility], bed B. SUBJECTIVE: This is a 72-year-old male seen and examined earlier in rounds today without reported significant clinical changes or evidence of active bleeding, but intermittent periods of abdominal pain with generalized weakness and malaise, as well as loss of appetite. No chills or fever reported. No chest pain or palpitations or significant shortness of breath, had been on hemodialysis. The entire chart is reviewed including but not limited to the most recent lab and radiology study results, current and the previous medication list, current and the previous medical events. Today's amylase level is reported to be 111, but normal lipase 239, with blood glucose level of 107, with increased CEA level to 5.6. Rest of the lab results today are still pending, but the patient is reported to have low hemoglobin and hematocrit with low white blood cells, but normal platelet count. PHYSICAL EXAMINATION GENERAL: A 72-year-old male, awake, alert, oriented, afebrile, complained of abdominal pain. VITAL SIGNS: Pulse of 82, respiratory rate 20 to 22, blood pressure of 164/76. HEENT: Showed pale, dry oral mucous membranes. Nonicteric sclerae. LUNGS: Few scattered crepitations. Decreased air entry at bases. HEART: Positive S1 and S2. ABDOMEN: Soft, with mild generalized tenderness. No mass or organomegaly. No rebound tenderness or guarding, but with a specific tenderness in the mid epigastric and the left lower quadrant area. EXTREMITIES: With mild lower extremity edematous changes. No clubbing or cyanosis. NEUROLOGIC: No reported new neurological deficits, sensory or motor. IMPRESSION: 1. Acute pancreatitis of unclear etiology. 2. Abnormal CAT scan of the abdomen and pelvis with diverticulosis and evidence of acute diverticulitis. 3. Exacerbation of peptic ulcer disease. 4. Poorly controlled hypertension. 5. End-stage renal disease, on hemodialysis. 6. Diabetic gastroparesis. 7. Known history of hyperlipidemia. 8. History of cardiac arrhythmias, with status post pacemaker insertion, by history. 9. Anemia, most likely secondary to above. SUGGESTIONS: 1. I agree with your plan. 2. Continue current management including IV fluid as well as IV antibiotics, as well as proton pump inhibitors. 3. Correct any underlying electrolyte imbalance. 4. The patient had recently endoscopic evaluation of the GI tract and no significant clinical changes to indicate repeating it in the meantime. 5. Stool for occult blood as well as C. diff. 6. Further recommendations to follow. Frank Chamorro MD
--- NOTE | 2018-02-13 18:44 | CP.PCM.PN ---
Subjective - Date & Time of Evaluation Date of Evaluation: 02/13/18 Time of Evaluation: 18:43 - Subjective Subjective: pt is seen and examined, follow up consult is dictated #[id number] Objective - Vital Signs/Intake and Output Vital Signs (last 24 hours): Temp Pulse Resp BP Pulse Ox 97.8 F 83 20 170/80 H 100 02/13/18 15:39 02/13/18 15:39 02/13/18 15:39 02/13/18 15:39 02/13/18 15:39 Intake and Output: 02/13/18 02/13/18 06:59 18:59 Intake Total 320 500 Balance 320 500 - Medications Medications: Current Medications Aspirin (Ecotrin) 81 mg PO DAILY [facility] Last Admin: 02/13/18 10:18 Dose: 81 mg Calcitriol (Rocaltrol) 0.25 mcg PO DAILY [facility] Last Admin: 02/13/18 10:18 Dose: 0.25 mcg Calcium Acetate (Phoslo) 667 mg PO TIDCC [facility] Last Admin: 02/13/18 17:37 Dose: 667 mg Finasteride (Proscar) 5 mg PO HS [facility] Last Admin: 02/12/18 21:50 Dose: 5 mg Heparin Sodium (Porcine) (Heparin) 5,000 units SC Q8 [facility] Last Admin: 02/13/18 13:17 Dose: 5,000 units Hydralazine HCl (Apresoline) 75 mg PO Q8 [facility] Last Admin: 02/13/18 13:16 Dose: 75 mg Ciprofloxacin (Cipro 200mg/100ml D5w) 100 mls @ 67 mls/hr IVPB Q12H [facility] PRN Reason: Protocol Last Admin: 02/13/18 17:41 Dose: 67 mls/hr Metronidazole (Flagyl) 500 mg in 100 mls @ 100 mls/hr IVPB Q8H [facility] PRN Reason: Protocol Last Admin: 02/13/18 13:10 Dose: 100 mls/hr Insulin Human Regular (Novolin R) 0 unit SC ACHS [facility] PRN Reason: Protocol Last Admin: 02/13/18 16:22 Dose: Not Given Metoprolol Succinate (Toprol Xl) 100 mg PO DAILY [facility] Last Admin: 02/13/18 10:18 Dose: 100 mg Morphine Sulfate (Morphine) 2 mg SC Q4 PRN PRN Reason: Pain, moderate (4-7) Nitroglycerin (Nitro-Bid 2% Oint) 1 ea TOP Q6 [facility] Last Admin: 02/13/18 17:37 Dose: 1 ea Pantoprazole Sodium (Protonix Ec Tab) 40 mg PO DAILY [facility] Last Admin: 02/13/18 10:18 Dose: 40 mg Rosuvastatin Calcium (Crestor) 10 mg PO HS [facility] Last Admin: 02/12/18 21:51 Dose: 10 mg - Labs Labs: 02/12/18 07:32 02/12/18 07:32
--- NOTE | 2018-02-13 20:40 | CARD ---
APPROVED REPORT EKG Measurement Heart [id number] <Conclusion> Normal sinus rhythm Possible Left atrial enlargement Right bundle branch block Inferior infarct, age undetermined Anteroseptal infarct, age undetermined Abnormal ECG
--- NOTE | 2018-02-13 23:45 | CP.PCM.PN ---
Subjective - Date & Time of Evaluation Date of Evaluation: 02/13/18 Time of Evaluation: 17:00 - Subjective Subjective: Pt seen and examined, has some LLQ pain Objective - Vital Signs/Intake and Output Vital Signs (last 24 hours): Temp Pulse Resp BP Pulse Ox 97.8 F 83 20 170/80 H 100 02/13/18 15:39 02/13/18 15:39 02/13/18 15:39 02/13/18 15:39 02/13/18 15:39 Intake and Output: 02/13/18 02/14/18 18:59 06:59 Intake Total 500 Balance 500 - Medications Medications: Current Medications Aspirin (Ecotrin) 81 mg PO DAILY [facility] Last Admin: 02/13/18 10:18 Dose: 81 mg Calcitriol (Rocaltrol) 0.25 mcg PO DAILY [facility] Last Admin: 02/13/18 10:18 Dose: 0.25 mcg Calcium Acetate (Phoslo) 667 mg PO TIDCC [facility] Last Admin: 02/13/18 17:37 Dose: 667 mg Finasteride (Proscar) 5 mg PO HS [facility] Last Admin: 02/13/18 21:44 Dose: 5 mg Hydralazine HCl (Apresoline) 75 mg PO Q8 [facility] Last Admin: 02/13/18 21:44 Dose: 75 mg Ciprofloxacin (Cipro 200mg/100ml D5w) 100 mls @ 67 mls/hr IVPB Q12H [facility] PRN Reason: Protocol Last Admin: 02/13/18 17:41 Dose: 67 mls/hr Insulin Human Regular (Novolin R) 0 unit SC ACHS [facility] PRN Reason: Protocol Last Admin: 02/13/18 21:43 Dose: Not Given Metoprolol Succinate (Toprol Xl) 100 mg PO DAILY [facility] Last Admin: 02/13/18 10:18 Dose: 100 mg Morphine Sulfate (Morphine) 2 mg SC Q4 PRN PRN Reason: Pain, moderate (4-7) Nitroglycerin (Nitro-Bid 2% Oint) 1 ea TOP Q6 [facility] Last Admin: 02/13/18 17:37 Dose: 1 ea Pantoprazole Sodium (Protonix Ec Tab) 40 mg PO DAILY [facility] Last Admin: 02/13/18 10:18 Dose: 40 mg Rosuvastatin Calcium (Crestor) 10 mg PO HS [facility] Last Admin: 02/13/18 21:44 Dose: 10 mg - Labs Labs: 02/12/18 07:32 02/12/18 07:32 - Constitutional Appears: No Acute Distress - Head Exam Head Exam: ATRAUMATIC, NORMAL INSPECTION, NORMOCEPHALIC - Eye Exam Eye Exam: EOMI, Normal appearance, PERRL Pupil Exam: NORMAL ACCOMODATION, PERRL - Respiratory Exam Respiratory Exam: Clear to Ausculation Bilateral, NORMAL BREATHING PATTERN - Cardiovascular Exam Cardiovascular Exam: REGULAR RHYTHM, +S1, +S2. absent: Murmur - GI/Abdominal Exam GI & Abdominal Exam: Soft, Normal Bowel Sounds. absent: Tenderness Assessment and Plan (1) Abdominal pain Status: Acute (2) Diverticulitis Status: Acute (3) CKD (chronic kidney disease) Status: Acute (4) ESRD needing dialysis Status: Acute (5) Hypertension Status: Chronic
[2018-02-14] MEDS: Nitroglycerin 2% Ointment Foilpak UD TOP SCH ×4 (00:22→17:09)
[2018-02-14] MEDS: Ciprofloxacin 200mg/100ml D5W 100 ML IVPB SCH (05:32)
--- NOTE | 2018-02-14 06:59 | PN ---
DATE: 02/13/2018 FOLLOWUP RENAL CONSULTATION LOCATION: The patient is located in room 653, bed B. REQUESTED BY: Emilio Israel MD REASON FOR FOLLOWUP: End-stage renal disease, continuation of hemodialysis. HISTORY OF PRESENT ILLNESS: Mr. Richards is a 72 years old elderly male with a past medical history significant for longstanding hypertension, diabetes, status post pacemaker, end-stage renal disease, status post BKA who was admitted with chief complaints of decreased p.o. intake and hyperkalemia and lower abdominal discomfort. Denies any chest pain or palpitation. Denies any nausea or vomiting. Denies any fever or cough. No dysuria. No edema of the legs. PHYSICAL EXAMINATION: VITAL SIGNS: As follows, blood pressure 170/80, pulse 83, respirations 20, temperature 97.8, saturation 100%, height 6 feet 1 inch, weight is 202 pounds. GENERAL: Mr. Richards is 72 years old elderly male, moderately built, moderately nourished, not in distress. HEENT: Pupils normal and reactive to light and accommodation. Conjunctiva pink. Sclerae anicteric. Tongue is moist. Trachea is midline. LUNGS: Symmetric on both sides. Bilateral breath sounds present. Clear to auscultation. CVS: [place] at the fifth intercostal space, midclavicular line. S1, S2 audible. No murmur or gallop. ABDOMEN: Normal in appearance, soft, tympanic. No guarding. No rigidity. No hepatosplenomegaly. The patient has mild left lower quadrant tenderness. Bowel sounds present. 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 Nonfocal neuro examination. Cranial nerves II through XII grossly intact. Sensory and motor system is within normal limits. EXTREMITIES: No cyanosis, no clubbing, no edema on the right side. The patient is status post left BKA. MEDICATIONS: His current medications include as follows, hydralazine 75 mg p.o. every 8 hours, Cipro 200 mg IV every 12 hours, Crestor 10 mg at bedtime, aspirin 81 mg p.o. daily, morphine 2 mg subcu every 4 hours, Nitro-Bid ointment 1 inch topical every 6 hours, Novolin R for sliding scale, PhosLo 667 mg p.o. t.i.d., Proscar 5 mg p.o. at bedtime, Protonix, calcitriol 0.25 mcg p.o. daily, metoprolol 100 mg p.o. daily. His lipase is 239. Accu-Cheks 107, 118, 101, and 111. IMPRESSION: In summary, Mr. Richards is a 72 years old elderly male with a history of hypertension, diabetes, end-stage renal disease, status post left below knee amputation, diverticulosis, diverticulitis, and also status post pacemaker who was admitted with poor appetite with multiple admissions and being treated for diverticulitis. 1. End-stage renal disease. Continue hemodialysis three times a week Tuesday, , Tuesday. 2. Uncontrolled hypertension. Continue hydralazine and metoprolol. Consider to increase hydralazine to 100 mg p.o. every 8 hours, and also consider to add Norvasc 5 mg p.o. daily in a.m. if blood pressure remains elevated. 3. Diabetes. 4. Diverticulitis. Continue antibiotics, Cipro and Flagyl as per Dr. Israel. Discussed with the patient's son and Dr. Israel in rounds. Thank you for allowing me to participate in your patient's care. Blanca Thakkar MD MTDD
[2018-02-14 07:18] LABS: MEAN CELL VOLUME 98.9 fL (80.0-94.0); MEAN CORPUSCULAR HEMOGLOBIN 33.4 pg (27.0-31.0); MEAN CORPUSCULAR HGB CONC 33.8 g/dL (33.0-37.0); MEAN PLATELET VOLUME 8.9 fL (7.2-11.7); RBC 3.29 Mil/uL (4.40-5.90); RED CELL DISTRIBUTION WIDTH 15.9 % (11.5-14.5); WHITE BLOOD COUNT 4.6 K/uL (4.8-10.8)
[2018-02-14] MEDS: (Novolin R) Insulin Human Regular 100 units/ml vial SC SCH ×4 (07:56→21:07)
[2018-02-14 08:29] LABS: CALCIUM 7.7 mg/dl (8.6-10.4)
--- NOTE | 2018-02-14 11:36 | PN ---
DATE: LOCATION: [facility], bed B. SUBJECTIVE: This is a 72-year-old male seen and examined in rounds without significant clinical changes, but with less abdominal pain, and less oral intake, with intermittent periods of postprandial abdominal distention. No chills or fever reported. No reported chest pain, palpitation, or significant complaint of shortness of breath. The entire chart is reviewed including but not limited to most recent lab and radiology study results, current and the previous medication list, current and the previous medical events. Case discussed with the staff at length. Today's lab showed blood glucose level of 88, and the latest amylase was 111, but normal lipase. Rest of the lab results still pending. PHYSICAL EXAMINATION GENERAL: A 72-year-old male, awake, alert and oriented. VITAL SIGNS: Afebrile with pulse of 76, respiratory rate of 20 to 22, blood pressure of 164/74. HEENT: Showed pale, dry, oral mucous membranes. Nonicteric sclerae. LUNGS: Few scattered crepitation. Decreased air entry at bases. HEART: Positive S1 and S2. ABDOMEN: Soft with slight generalized tenderness. No mass or organomegaly. No rebound tenderness or guarding. RECTAL: The patient refused. EXTREMITIES: Without significant clubbing, cyanosis, or edema. NEUROLOGIC: No reported new neurological deficits, sensory or motor. Peripheral pulses are present bilaterally, but weak. No reported new focal deficits. IMPRESSION: 1. Acute pancreatitis, improving. 2. Diverticulosis, acute diverticulitis, subsiding. 3. Re-exacerbation of peptic ulcer disease. 4. End-stage renal disease, on hemodialysis. 5. Poorly controlled hypertension. 6. Known history of hyperlipidemia, diabetes mellitus, diabetic gastroparesis. 7. Cardiac arrhythmias, with status post pacemaker insertion. 8. Anemia most likely secondary to above. SUGGESTIONS: 1. Continue current management. 2. Check stool for C. diff. 3. Rehydration. 4. Advance diet as tolerated. 5. Zofran IV. 6. Continue proton pump inhibitors. 7. Further recommendations to follow. No need for aggressive GI endoscopic evaluation at this time. Frank Chamorro MD [facility] # [id number]
--- NOTE | 2018-02-14 12:10 | CP.PCM.PN ---
Subjective - Date & Time of Evaluation Date of Evaluation: 02/14/18 Time of Evaluation: 12:10 - Subjective Subjective: pt is seen and examined, follow up consult is dictated #[id number] seen in hd, uf goal is 2.7 lit increase hydralazine to 100 mg po q8hr clonidine 0.1 mg po q8hrs if needed Objective - Vital Signs/Intake and Output Vital Signs (last 24 hours): Temp Pulse Resp BP Pulse Ox 98 F 82 20 166/82 H 99 02/14/18 09:20 02/14/18 09:20 02/14/18 09:20 02/14/18 11:50 02/14/18 09:20 Intake and Output: 02/14/18 02/14/18 06:59 18:59 Intake Total 340 Output Total 50 Balance 290 - Medications Medications: Current Medications Aspirin (Ecotrin) 81 mg PO DAILY [facility] Last Admin: 02/13/18 10:18 Dose: 81 mg Calcitriol (Rocaltrol) 0.25 mcg PO DAILY [facility] Last Admin: 02/13/18 10:18 Dose: 0.25 mcg Calcium Acetate (Phoslo) 667 mg PO TIDCC [facility] Last Admin: 02/13/18 17:37 Dose: 667 mg Ciprofloxacin (Cipro) 250 mg PO BID [facility] PRN Reason: Protocol Finasteride (Proscar) 5 mg PO HS [facility] Last Admin: 02/13/18 21:44 Dose: 5 mg Hydralazine HCl (Apresoline) 75 mg PO Q8 [facility] Last Admin: 02/14/18 05:31 Dose: 75 mg Insulin Human Regular (Novolin R) 0 unit SC ACHS [facility] PRN Reason: Protocol Last Admin: 02/14/18 07:56 Dose: Not Given Metoprolol Succinate (Toprol Xl) 100 mg PO DAILY [facility] Last Admin: 02/13/18 10:18 Dose: 100 mg Metronidazole (Flagyl) 500 mg PO Q8 [facility] PRN Reason: Protocol Morphine Sulfate (Morphine) 2 mg SC Q4 PRN PRN Reason: Pain, moderate (4-7) Nitroglycerin (Nitro-Bid 2% Oint) 1 ea TOP Q6 [facility] Last Admin: 02/14/18 05:32 Dose: 1 ea Pantoprazole Sodium (Protonix Ec Tab) 40 mg PO DAILY [facility] Last Admin: 02/13/18 10:18 Dose: 40 mg Rosuvastatin Calcium (Crestor) 10 mg PO HS [facility] Last Admin: 02/13/18 21:44 Dose: 10 mg - Labs Labs: 02/14/18 07:03 02/14/18 07:03
[2018-02-14] MEDS: Metoprolol Succinate 100 mg XL Tab PO SCH (13:04)
[2018-02-14] MEDS: Pantoprazole 40 mg EC Tab PO SCH (13:05)
--- NOTE | 2018-02-14 23:37 | CP.PCM.PN ---
Subjective - Date & Time of Evaluation Date of Evaluation: 02/14/18 Time of Evaluation: 19:00 - Subjective Subjective: Pt seen and examined, is on HD, feeling better Objective - Vital Signs/Intake and Output Vital Signs (last 24 hours): Temp Pulse Resp BP Pulse Ox 97.7 F 90 20 180/87 H 99 02/14/18 15:54 02/14/18 15:54 02/14/18 15:54 02/14/18 15:54 02/14/18 15:54 Intake and Output: 02/14/18 02/15/18 18:59 06:59 Output Total 50 Balance -50 - Medications Medications: Current Medications Aspirin (Ecotrin) 81 mg PO DAILY [facility] Last Admin: 02/14/18 13:04 Dose: 81 mg Calcitriol (Rocaltrol) 0.25 mcg PO DAILY [facility] Last Admin: 02/14/18 13:04 Dose: 0.25 mcg Calcium Acetate (Phoslo) 667 mg PO TIDCC [facility] Last Admin: 02/14/18 17:09 Dose: 667 mg Ciprofloxacin (Cipro) 250 mg PO BID [facility] PRN Reason: Protocol Finasteride (Proscar) 5 mg PO HS [facility] Last Admin: 02/14/18 21:08 Dose: 5 mg Hydralazine HCl (Apresoline) 75 mg PO Q8 [facility] Last Admin: 02/14/18 21:06 Dose: 75 mg Insulin Human Regular (Novolin R) 0 unit SC ACHS [facility] PRN Reason: Protocol Last Admin: 02/14/18 21:07 Dose: Not Given Metoprolol Succinate (Toprol Xl) 100 mg PO DAILY [facility] Last Admin: 02/14/18 13:04 Dose: 100 mg Metronidazole (Flagyl) 500 mg PO Q8 [facility] PRN Reason: Protocol Last Admin: 02/14/18 21:07 Dose: 500 mg Morphine Sulfate (Morphine) 2 mg SC Q4 PRN PRN Reason: Pain, moderate (4-7) Nitroglycerin (Nitro-Bid 2% Oint) 1 ea TOP Q6 [facility] Last Admin: 02/14/18 17:09 Dose: 1 ea Pantoprazole Sodium (Protonix Ec Tab) 40 mg PO DAILY [facility] Last Admin: 02/14/18 13:05 Dose: 40 mg Rosuvastatin Calcium (Crestor) 10 mg PO HS [facility] Last Admin: 02/14/18 21:07 Dose: 10 mg - Labs Labs: 02/14/18 07:03 02/14/18 07:03 Assessment and Plan (1) Abdominal pain Status: Acute (2) Diverticulitis Status: Acute (3) CKD (chronic kidney disease) Status: Acute (4) ESRD needing dialysis Status: Acute (5) Hypertension Status: Chronic
[2018-02-15] MEDS: Nitroglycerin 2% Ointment Foilpak UD TOP SCH ×4 (00:25→17:26)
--- NOTE | 2018-02-15 02:53 | PN ---
DATE: 02/14/2018 FOLLOWUP RENAL CONSULTATION LOCATION: The patient is located in room 653, bed 8. REQUESTED BY: Emilio Israel MD REASON FOR FOLLOWUP: End-stage renal disease, continuation of the hemodialysis. HISTORY OF PRESENT ILLNESS: Mr. Richards is a 72 years elderly, male with a past medical history significant for longstanding hypertension, diabetes, end-stage renal disease, status post pacemaker, status post left BKA, diverticulosis who was admitted with multiple admissions to [facility] and [facility] in the last few months with abdominal discomfort, decreased p.o. intake, and poor appetite. The patient is being treated again for diverticulitis. The patient is being dialyzed this morning. UF goal is about 2.7 liters. The patient is not in distress. Denies any headache, dizziness. Denies any chest pain. Denies any fever or cough. Does complains of left-sided abdominal [id number] discomfort. PHYSICAL EXAMINATION: VITAL SIGNS: His vital signs as follows, blood pressure 166/82, pulse 82, respirations 20, temperature 97.8, saturation 100%. Height 6 feet 1 inch, weight is 202 pounds. GENERAL: Mr. Richards is a 72 years old elderly male, moderately built, moderately nourished, not in acute distress. HEENT: Pupils normal and reactive to light and accommodation. Conjunctivae pink. Sclerae anicteric. Tongue is moist. Trachea is midline. LUNGS: Symmetric on both sides. Clear to auscultation. CVS: [place] at the fifth intercostal space, midclavicular line. S1, S2 audible. No murmur or gallop. ABDOMEN: Normal in appearance, soft, tympanic. No guarding. No rigidity. No hepatosplenomegaly. Mild left lower quadrant tenderness. [employer]: The patient is alert, awake, and oriented x3. Nonfocal neuro examination. Cranial nerves II through XII grossly intact. Sensory and motor system is within normal limits. EXTREMITIES: No cyanosis, no clubbing, no edema on the right leg. Status post left BKA. MEDICATIONS: His current medications include as follows, hydralazine 75 mg p.o. every 8 hours, ciprofloxacin 250 p.o. b.i.d., Crestor 10 mg at bedtime, aspirin 81 mg daily, Flagyl 500 mg p.o. every 8 hours, morphine 2 mg subcu every 4 hours p.r.n., Nitro-Bid ointment 1 inch topical every 6 hours, PhosLo 667 mg p.o. t.i.d., Proscar 5 mg p.o. at bedtime, Protonix 40 mg p.o. daily, Rocaltrol 0.25 mcg p.o. daily, metoprolol 100 mg p.o. daily. LABORATORY DATA: His laboratory data include as follows. As of 02/14/2018, WBC 4.6, hemoglobin 11, hematocrit is 32.5, platelets 140. Sodium 132, potassium 4.2, chloride 94, CO2 of 23, BUN 42, creatinine 9.5, glucose 88, calcium 7.7. IMPRESSION: In summary, Mr. Richards is 72 years old elderly male with a history of hypertension, diabetes, status post pacemaker, end-stage renal disease, on hemodialysis three times a week, diverticulosis and being treated for diverticulitis. 1. End-stage renal disease. Continue hemodialysis three times a week, Tuesday, , Tuesday. The patient is being dialyzed and UF goal is about 2.7 liters this morning. 2. Uncontrolled hypertension. Continue hydralazine, metoprolol, and Nitroglycerin paste. We will increase hydralazine to 100 mg p.o. every 8 hours for blood pressure is still high. 3. Diverticulitis. Continue Cipro and Flagyl. Change it to p.o. today. 4. Secondary hyperparathyroidism. Continue calcium acetate and Rocaltrol. We will continue to monitor H and H. We will follow with you. Thank you for allowing me to participate in your patient's care. Blanca Tahkkar MD
[2018-02-15] MEDS: (Novolin R) Insulin Human Regular 100 units/ml vial SC SCH ×4 (07:37→21:06)
[2018-02-15] MEDS: Pantoprazole 40 mg EC Tab PO SCH (09:39)
[2018-02-15] MEDS: Metoprolol Succinate 100 mg XL Tab PO SCH (09:39)
--- NOTE | 2018-02-15 13:06 | CP.PCM.PN ---
Subjective - Date & Time of Evaluation Date of Evaluation: 02/15/18 Time of Evaluation: 13:06 - Subjective Subjective: pt is seen and examined, follow up consult is dictated #[id number] Objective - Vital Signs/Intake and Output Vital Signs (last 24 hours): Temp Pulse Resp BP Pulse Ox 98.4 F 82 20 175/79 H 98 02/15/18 07:20 02/15/18 07:20 02/15/18 07:20 02/15/18 07:20 02/15/18 07:20 Intake and Output: 02/15/18 02/15/18 06:59 18:59 Intake Total 240 Output Total 100 Balance 140 - Medications Medications: Current Medications Aspirin (Ecotrin) 81 mg PO DAILY [facility] Last Admin: 02/15/18 09:39 Dose: 81 mg Calcitriol (Rocaltrol) 0.25 mcg PO DAILY [facility] Last Admin: 02/14/18 13:04 Dose: 0.25 mcg Calcium Acetate (Phoslo) 667 mg PO TIDCC [facility] Last Admin: 02/15/18 08:25 Dose: 667 mg Ciprofloxacin (Cipro) 250 mg PO DAILY [facility] PRN Reason: Protocol Finasteride (Proscar) 5 mg PO HS [facility] Last Admin: 02/14/18 21:08 Dose: 5 mg Hydralazine HCl (Apresoline) 100 mg PO Q8 [facility] Insulin Human Regular (Novolin R) 0 unit SC ACHS [facility] PRN Reason: Protocol Last Admin: 02/15/18 07:37 Dose: Not Given Metoprolol Succinate (Toprol Xl) 100 mg PO DAILY [facility] Last Admin: 02/15/18 09:39 Dose: 100 mg Metronidazole (Flagyl) 500 mg PO Q8 [facility] PRN Reason: Protocol Last Admin: 02/15/18 05:23 Dose: 500 mg Morphine Sulfate (Morphine) 2 mg SC Q4 PRN PRN Reason: Pain, moderate (4-7) Nitroglycerin (Nitro-Bid 2% Oint) 1 ea TOP Q6 [facility] Last Admin: 02/15/18 05:23 Dose: 1 ea Pantoprazole Sodium (Protonix Ec Tab) 40 mg PO DAILY [facility] Last Admin: 02/15/18 09:39 Dose: 40 mg Rosuvastatin Calcium (Crestor) 10 mg PO HS [facility] Last Admin: 02/14/18 21:07 Dose: 10 mg - Labs Labs: 04/17/18 07:03 02/14/18 07:03
--- NOTE | 2018-02-15 13:58 | PN ---
DATE: LOCATION: 653, bed B. SUBJECTIVE: This is a 72-year-old male, seen and examined in rounds without significant clinical changes or reported active bleeding. He still was complaining of generalized weakness and malaise with reported less oral intake, on hemodialysis. The entire chart is reviewed including but not limited to the most recent lab and radiology study results, current and the previous medication list, current and the previous medical events. Today's lab showed blood glucose level of 102. Rest of lab results are still pending; however, the patient reported to have low hemoglobin and hematocrit, with increased BUN and creatinine with low calcium compatible with the patient's known history of renal failure, but with increased CEA level that can be related to his liver insufficiency. Review of CAT scan of the abdomen and the pelvis done, report is seen with evidence of left-sided diverticulitis. PHYSICAL EXAMINATION GENERAL: This is a 72-year-old male, awake, alert, oriented, indicating that he is clinically improving with less abdominal pain. VITAL SIGNS: Afebrile with pulse of 80, respiratory rate 20 to 22, blood pressure of 170/76. HEENT: Showed dry oral mucous membranes. Nonicteric sclerae. LUNGS: Few scattered crepitation. Decreased air entry at bases. HEART: Positive S1 and S2. ABDOMEN: Soft with generalized mild tenderness, less than before in the mid epigastric and left lower quadrant. No mass or organomegaly. No rebound tenderness or guarding. EXTREMITIES: No significant clubbing, cyanosis, or edema. NEUROLOGIC: No new reported neurological deficits, sensory or motor. IMPRESSION: 1. Diverticulosis with recurrent diverticulitis, improving clinically. 2. Exacerbation of peptic ulcer disease. 3. Acute pancreatitis, gradually subsiding. 4. Anemia, most likely secondary to above. 5. End-stage renal disease, on hemodialysis. 6. Poorly controlled hypertension. 7. Known history of hyperlipidemia. 8. Cardiac arrhythmias, status post pacemaker insertion. 9. History of diabetes mellitus with diabetic gastroparesis. SUGGESTION: 1. Agree with your plan. 2. Continue current IV antibiotics. 3. . 4. No need for any aggressive GI workup in the meantime as the patient recently had upper and lower endoscopy. Alaa Salah-Thanh, MD [facility] # [id number]
--- NOTE | 2018-02-15 18:26 | CP.PCM.CON ---
History of Present Illness - History of Present Illness History of Present Illness: Surgery Consult: Dr. Schwartz Pt is a 72M with PMHx significant for DM, HTN, HLD & ESRD (on HD TTS), who presented to on 02/11 for complaints of LLQ abdominal pain. Pt has had several visits since Dec for similar pain and on each of those visits his CT scan has showed similar findings of severe sigmoid diverticulosis with some diverticulitis. On this admission a CT abdomen/pelvis was also obtained and showed findings similar to prior CT scans. Surgery consulted to evaluate. Currently, pt is resting comfortably in his bed. States he's feeling better compared to when he came in however, the pain is still present. He has been tolerating liquids and was advanced to reg diet this AM which he also tolerated. He states his last BM was 3-4 days ago but admits to occasional flatus. Denies N/V, F/C. PMHx: as listed above PSHx: L BKA, L AVF SocialHx: current smoker, denies EtOH/drugs NKDA Review of Systems - Review of Systems All systems: reviewed and no additional remarkable complaints except (as per HPI ) Past Patient History - Infectious Disease Hx of Infectious Diseases: None - Past Medical History & Family History Past Medical History?: Yes - Past Social History Smoking Status: Light Smoker < 10 Cigarettes Daily - CARDIAC Hx Hypercholesterolemia: Yes Hx Hypertension: Yes Hx Pacemaker: Yes (12/17) - PULMONARY Other/Comment: light smoker - NEUROLOGICAL Hx Alzheimer's Disease: No - HEENT Hx HEENT Problems: Yes Other/Comment: left eye vision problems - RENAL Hx Chronic Kidney Disease: Yes - ENDOCRINE/METABOLIC Hx Diabetes Mellitus Type 2: Yes - HEMATOLOGICAL/ONCOLOGICAL Hx Blood Disorders: No - INTEGUMENTARY Hx Dermatological Problems: No - MUSCULOSKELETAL/RHEUMATOLOGICAL Hx Falls: No - GASTROINTESTINAL Hx Gastrointestinal Disorders: Yes Hx Nausea: Yes - GENITOURINARY/GYNECOLOGICAL Hx Genitourinary Disorders: No - PSYCHIATRIC Hx Substance Use: No - SURGICAL HISTORY Hx Surgeries: Yes Hx Amputation: Yes (left bka with prosthesis) Hx Angiogram: Yes Hx Herniorrhaphy: Yes Hx Vascular Access Device: Yes Other/Comment: Left BK amputation - ANESTHESIA Hx Anesthesia: Yes Hx Anesthesia Reactions: No Hx Malignant Hyperthermia: No Meds Allergies/Adverse Reactions: Allergies Allergy/AdvReac Type Severity Reaction Status Date / Time No Known Allergies Allergy Verified 02/10/18 15:04 - Medications Medications: Current Medications Aspirin (Ecotrin) 81 mg PO DAILY [facility] Last Admin: 02/15/18 09:39 Dose: 81 mg Calcitriol (Rocaltrol) 0.25 mcg PO DAILY [facility] Last Admin: 02/15/18 14:42 Dose: 0.25 mcg Calcium Acetate (Phoslo) 667 mg PO TIDCC [facility] Last Admin: 02/15/18 17:27 Dose: 667 mg Ciprofloxacin (Cipro) 250 mg PO DAILY [facility] PRN Reason: Protocol Last Admin: 02/15/18 14:41 Dose: 250 mg Finasteride (Proscar) 5 mg PO HS [facility] Last Admin: 02/14/18 21:08 Dose: 5 mg Hydralazine HCl (Apresoline) 100 mg PO Q8 [facility] Last Admin: 02/15/18 14:42 Dose: 100 mg Insulin Human Regular (Novolin R) 0 unit SC [facility] PRN Reason: Protocol Last Admin: 02/15/18 17:27 Dose: Not Given Lactulose (Enulose) 20 gm PO Q4H [facility] Stop: 02/15/18 22:01 Last Admin: 02/15/18 17:50 Dose: 20 gm Metoprolol Succinate (Toprol Xl) 200 mg PO DAILY [facility] Metronidazole (Flagyl) 500 mg PO Q8 [facility] PRN Reason: Protocol Last Admin: 02/15/18 14:42 Dose: 500 mg Morphine Sulfate (Morphine) 2 mg SC Q4 PRN PRN Reason: Pain, moderate (4-7) Nitroglycerin (Nitro-Bid 2% Oint) 1 ea TOP Q6 [facility] Last Admin: 02/15/18 17:26 Dose: 1 ea Pantoprazole Sodium (Protonix Ec Tab) 40 mg PO DAILY [facility] Last Admin: 02/15/18 09:39 Dose: 40 mg Polyethylene Glycol (Miralax) 17 gm PO DAILY [facility] Stop: 02/17/18 18:01 Rosuvastatin Calcium (Crestor) 10 mg PO HS [facility] Last Admin: 02/14/18 21:07 Dose: 10 mg Physical Exam - Constitutional Appears: Well, No Acute Distress - Head Exam Head Exam: ATRAUMATIC, NORMOCEPHALIC - Eye Exam Eye Exam: Normal appearance - ENT Exam ENT Exam: Mucous Membranes Moist - Respiratory Exam Respiratory Exam: NORMAL BREATHING PATTERN - Cardiovascular Exam Cardiovascular Exam: RRR - GI/Abdominal Exam GI & Abdominal Exam: Distended, Soft, Tenderness (LLQ). absent: Guarding, Rebound - Neurological Exam Neurological exam: Alert, Oriented x3 - Skin Skin Exam: Dry, Warm Results - Vital Signs Recent Vital Signs: Last Vital Signs Temp 97.7 F 02/15/18 15:00 Pulse 77 02/15/18 15:00 Resp 20 02/15/18 15:00 BP 164/76 H 02/15/18 15:00 Pulse Ox 98 02/15/18 15:00 - Labs Result Diagrams: 02/14/18 07:03 02/14/18 07:03 Labs: Laboratory Results - last 24 hr 02/14/18 02/15/18 02/15/18 21:28 06:22 11:38 POC Glucose (mg/dL) 152 H 102 114 H 02/15/18 16:14 POC Glucose (mg/dL) 124 H - Imaging and Cardiology CT scan - abdomen Status: Image reviewed by me, Report reviewed by me Assessment & Plan - Assessment and Plan (Free Text) Assessment: 72M with abdominal pain secondary to constipation vs diverticulitis Plan: - cont IV ABx - will administer laxatives/stool softners to help with BM - serial abdominal exams - d/w Dr. Efren Otero, PGY-3
[2018-02-15] MEDS: POLYETHYLENE GLYCOL 3350 17 GM/Dose PACKET PO SCH (21:05)
--- NOTE | 2018-02-15 22:57 | CP.PCM.PN ---
Subjective - Date & Time of Evaluation Date of Evaluation: 02/15/18 Time of Evaluation: 17:40 - Subjective Subjective: pt seen and examined at bedside Objective - Vital Signs/Intake and Output Vital Signs (last 24 hours): Temp Pulse Resp BP Pulse Ox 97.7 F 77 20 164/76 H 98 02/15/18 15:00 02/15/18 15:00 02/15/18 15:00 02/15/18 15:00 02/15/18 15:00 - Medications Medications: Current Medications Aspirin (Ecotrin) 81 mg PO DAILY [facility] Last Admin: 02/15/18 09:39 Dose: 81 mg Calcitriol (Rocaltrol) 0.25 mcg PO DAILY [facility] Last Admin: 02/15/18 14:42 Dose: 0.25 mcg Calcium Acetate (Phoslo) 667 mg PO TIDCC [facility] Last Admin: 02/15/18 17:27 Dose: 667 mg Ciprofloxacin (Cipro) 250 mg PO DAILY [facility] PRN Reason: Protocol Last Admin: 02/15/18 14:41 Dose: 250 mg Finasteride (Proscar) 5 mg PO HS [facility] Last Admin: 02/15/18 21:07 Dose: 5 mg Hydralazine HCl (Apresoline) 100 mg PO Q8 [facility] Last Admin: 02/15/18 21:05 Dose: 100 mg Insulin Human Regular (Novolin R) 0 unit SC [facility] PRN Reason: Protocol Last Admin: 02/15/18 21:06 Dose: Not Given Metoprolol Succinate (Toprol Xl) 200 mg PO DAILY [facility] Metronidazole (Flagyl) 500 mg PO Q8 [facility] PRN Reason: Protocol Last Admin: 02/15/18 21:05 Dose: 500 mg Morphine Sulfate (Morphine) 2 mg SC Q4 PRN PRN Reason: Pain, moderate (4-7) Nitroglycerin (Nitro-Bid 2% Oint) 1 ea TOP Q6 [facility] Last Admin: 02/15/18 17:26 Dose: 1 ea Pantoprazole Sodium (Protonix Ec Tab) 40 mg PO DAILY [facility] Last Admin: 02/15/18 09:39 Dose: 40 mg Polyethylene Glycol (Miralax) 17 gm PO DAILY [facility] Stop: 02/17/18 18:01 Last Admin: 02/15/18 21:05 Dose: 17 gm Rosuvastatin Calcium (Crestor) 10 mg PO [facility] Last Admin: 02/15/18 21:05 Dose: 10 mg - Labs Labs: 02/14/18 07:03 02/14/18 07:03 Assessment and Plan (1) Abdominal pain Status: Acute (2) Diverticulitis Status: Acute (3) CKD (chronic kidney disease) Status: Acute (4) ESRD needing dialysis Status: Acute (5) Hypertension Status: Chronic
[2018-02-16] MEDS: Nitroglycerin 2% Ointment Foilpak UD TOP SCH ×4 (00:14→17:28)
--- NOTE | 2018-02-16 04:36 | PN ---
DATE: 02/15/2018 FOLLOWUP RENAL CONSULTATION LOCATION: The patient is located in room 653, bed B. REQUESTED BY: Emilio Israel MD REASON FOR RENAL FOLLOWUP: End-stage renal disease, continuation of hemodialysis. HISTORY OF PRESENT ILLNESS: Mr. Richards is a 72-year-old elderly very pleasant male with a past medical history significant for longstanding hypertension, diabetes, status post pacemaker, end-stage renal disease on hemodialysis three times a week, Tuesday, , Tuesday, status post BKA, diverticulosis, being treated for diverticulitis with multiple admissions in the last 2 months. The patient was admitted at this time with chief complaints of decreased p.o. intake and poor appetite and left lower quadrant discomfort. The patient is being treated for diverticulitis. Denies any chest pain or palpitation. Denies any nausea or vomiting. Denies any diarrhea. The patient was seen and examined at bedside and resting comfortably. The patient is able to tolerate p.o. soft diet and liquids. PHYSICAL EXAMINATIONS: VITAL SIGNS: As follows, blood pressure 164/76, pulse 77, respirations 20, temperature 97.7, saturation 98%. Height 6 feet 1 inch, weight is 202 pounds. GENERAL: Mr. Richards is 72 years old elderly male, moderately built, moderately nourished, not in distress. HEENT: Pupils normal and reactive to light and accommodation. Conjunctivae pink. Sclerae anicteric. Tongue is moist. Trachea is midline. LUNGS: Symmetric on both sides. Bilateral breath sounds present. Clear to auscultation. CVS: [place] at the fifth intercostal space, midclavicular line. S1, S2 audible. No murmur or gallop. ABDOMEN: Normal in appearance, slightly distended and soft. Mild left lower quadrant tenderness. No guarding. No rigidity. No hepatosplenomegaly. [employer]: The patient is alert, awake, and oriented x3. Nonfocal neuro examination. Cranial nerves II through XII grossly intact. Sensory and motor system is within normal limits. EXTREMITIES: No cyanosis, no clubbing, no edema on the right side. Status post left BKA. MEDICATIONS: His current medications include as follows, hydralazine 100 mg p.o. every 8 hours, Cipro 250 mg p.o. daily, Crestor 10 mg at bedtime, aspirin 81 mg daily, Flagyl 500 mg p.o. every 8 hours, MiraLax 17 gm p.o. daily, morphine 2 mg subcu every 4 hours p.r.n., Nitro-Bid ointment 1 inch topical every 6 hours, Novolin R for sliding scale, PhosLo 667 mg p.o. t.i.d., Proscar 5 mg p.o. at bedtime, Protonix 40 mg p.o. daily, Rocaltrol 0.25 mcg p.o. daily, and metoprolol 200 mg p.o. daily. LABORATORY DATA: No new labs are available. Accu-Cheks 102, 114. IMPRESSION: In summary, Mr. Richards is 72 years old very pleasant elderly male with hypertension, diabetes, status post pacemaker, end-stage renal disease, diverticulosis, being treated for diverticulitis. 1. End-stage renal disease. Continue hemodialysis three times a week; Tuesday, , Tuesday. 2. Hypertension. Blood pressure is still high. Agreed to increase the hydralazine to 100 mg p.o. every 8 hours and increase the metoprolol to 200 mg p.o. p.o. b.i.d., and continue nitroglycerin paste. 3. Type 2 diabetes. Sugars are under control. Continue his current medications. 4. Diverticulitis. Continue Cipro and Flagyl as per Dr. Israel. We will schedule for HD in a.m. We will follow with you. Thank you for allowing me to participate in your patient's care. Blanca Thakkar MD
[2018-02-16] MEDS: (Novolin R) Insulin Human Regular 100 units/ml vial SC SCH ×4 (07:33→22:11)
[2018-02-16] MEDS ORDERED: Magnesium Citrate Oral SOL (300 ml) PO ONE (11:14)
--- NOTE | 2018-02-16 11:24 | CP.PCM.PN ---
Subjective - Date & Time of Evaluation Date of Evaluation: 02/16/18 Time of Evaluation: 11:21 - Subjective Subjective: General Surgery - Dr. Schwartz Pt S&E. MIRA. Pt states that he has "no pain". He is tolerating regular diet and had 2 BMs this morning. No Fevers/Chills, SOB/Chest pain. Objective - Vital Signs/Intake and Output Vital Signs (last 24 hours): Temp Pulse Resp BP Pulse Ox 97.9 F 76 20 167/86 H 99 02/16/18 09:10 02/16/18 09:10 02/16/18 09:10 02/16/18 10:10 02/16/18 09:10 - Medications Medications: Current Medications Aspirin (Ecotrin) 81 mg PO DAILY [facility] Last Admin: 02/15/18 09:39 Dose: 81 mg Belladonna/Phenobarbital () 1 tab PO BID [facility] Calcitriol (Rocaltrol) 0.25 mcg PO DAILY [facility] Last Admin: 02/15/18 14:42 Dose: 0.25 mcg Calcium Acetate (Phoslo) 667 mg PO TIDCC [facility] Last Admin: 02/16/18 08:08 Dose: 667 mg Ciprofloxacin (Cipro) 250 mg PO DAILY [facility] PRN Reason: Protocol Last Admin: 02/15/18 14:41 Dose: 250 mg Finasteride (Proscar) 5 mg PO HS [facility] Last Admin: 02/15/18 21:07 Dose: 5 mg Hydralazine HCl (Apresoline) 100 mg PO Q8 [facility] Last Admin: 02/16/18 05:47 Dose: 100 mg Insulin Human Regular (Novolin R) 0 unit SC ACHS [facility] PRN Reason: Protocol Last Admin: 02/16/18 07:33 Dose: Not Given Metoprolol Succinate (Toprol Xl) 200 mg PO DAILY [facility] Metronidazole (Flagyl) 500 mg PO Q8 [facility] PRN Reason: Protocol Last Admin: 02/16/18 05:47 Dose: 500 mg Morphine Sulfate (Morphine) 2 mg SC Q4 PRN PRN Reason: Pain, moderate (4-7) Nitroglycerin (Nitro-Bid 2% Oint) 1 ea TOP Q6 [facility] Last Admin: 02/16/18 05:47 Dose: 1 ea Pantoprazole Sodium (Protonix Ec Tab) 40 mg PO DAILY [facility] Last Admin: 02/15/18 09:39 Dose: 40 mg Polyethylene Glycol (Miralax) 17 gm PO DAILY [facility] Stop: 02/17/18 18:01 Last Admin: 02/15/18 21:05 Dose: 17 gm Rosuvastatin Calcium (Crestor) 10 mg PO HS [facility] Last Admin: 02/15/18 21:05 Dose: 10 mg - Labs Labs: 02/14/18 07:03 02/14/18 07:03 - Constitutional Appears: No Acute Distress - Head Exam Head Exam: ATRAUMATIC - Respiratory Exam Respiratory Exam: NORMAL BREATHING PATTERN. absent: Respiratory Distress - GI/Abdominal Exam GI & Abdominal Exam: Soft. absent: Distended, Firm, Guarding, Rigid, Tenderness , Rebound - Neurological Exam Neurological Exam: Alert, Oriented x3 - Psychiatric Exam Psychiatric exam: Normal Affect, Normal Mood - Skin Skin Exam: Dry, Intact Assessment and Plan - Assessment and Plan (Free Text) Assessment: 72M with diverticulitis, resolved Plan: - Continue Regular diet, High Fiber - Continue Abx - Encourage Fiber intake in diet at home - F/U with GI for outpatient colonoscopy - No surgical intervention at this time, clear for D/C from our standpoint DW Dr Schwartz
--- NOTE | 2018-02-16 11:54 | CP.PCM.PN ---
Subjective - Date & Time of Evaluation Date of Evaluation: 02/16/18 Time of Evaluation: 11:53 - Subjective Subjective: pt is seen and examined during hd, uf goal is 3 lit follow up consult is dictated #[id number] Objective - Vital Signs/Intake and Output Vital Signs (last 24 hours): Temp Pulse Resp BP Pulse Ox 97.9 F 76 20 167/86 H 99 02/16/18 09:10 02/16/18 09:10 02/16/18 09:10 02/16/18 10:10 02/16/18 09:10 - Medications Medications: Current Medications Aspirin (Ecotrin) 81 mg PO DAILY [facility] Last Admin: 02/15/18 09:39 Dose: 81 mg Belladonna/Phenobarbital () 1 tab PO BID [facility] Calcitriol (Rocaltrol) 0.25 mcg PO DAILY [facility] Last Admin: 02/15/18 14:42 Dose: 0.25 mcg Calcium Acetate (Phoslo) 667 mg PO TIDCC [facility] Last Admin: 02/16/18 08:08 Dose: 667 mg Ciprofloxacin (Cipro) 250 mg PO DAILY [facility] PRN Reason: Protocol Last Admin: 02/15/18 14:41 Dose: 250 mg Finasteride (Proscar) 5 mg PO HS [facility] Last Admin: 02/15/18 21:07 Dose: 5 mg Hydralazine HCl (Apresoline) 100 mg PO Q8 [facility] Last Admin: 02/16/18 05:47 Dose: 100 mg Insulin Human Regular (Novolin R) 0 unit SC ACHS [facility] PRN Reason: Protocol Last Admin: 02/16/18 11:52 Dose: Not Given Metoprolol Succinate (Toprol Xl) 200 mg PO DAILY [facility] Metronidazole (Flagyl) 500 mg PO Q8 [facility] PRN Reason: Protocol Last Admin: 02/16/18 05:47 Dose: 500 mg Morphine Sulfate (Morphine) 2 mg SC Q4 PRN PRN Reason: Pain, moderate (4-7) Nitroglycerin (Nitro-Bid 2% Oint) 1 ea TOP Q6 [facility] Last Admin: 02/16/18 05:47 Dose: 1 ea Pantoprazole Sodium (Protonix Ec Tab) 40 mg PO DAILY [facility] Last Admin: 02/15/18 09:39 Dose: 40 mg Polyethylene Glycol (Miralax) 17 gm PO DAILY [facility] Stop: 02/17/18 18:01 Last Admin: 02/15/18 21:05 Dose: 17 gm Rosuvastatin Calcium (Crestor) 10 mg PO HS [facility] Last Admin: 02/15/18 21:05 Dose: 10 mg - Labs Labs: 02/14/18 07:03 02/14/18 07:03
[2018-02-16] MEDS: Metoprolol Succinate 100 mg XL Tab PO SCH (13:16)
[2018-02-16] MEDS: Belladonna-Phenobarbital PO SCH ×2 (13:17→17:28)
[2018-02-16] MEDS: Pantoprazole 40 mg EC Tab PO SCH (13:17)
[2018-02-16] MEDS: POLYETHYLENE GLYCOL 3350 17 GM/Dose PACKET PO SCH (13:17)
--- NOTE | 2018-02-16 14:11 | PN ---
DATE: LOCATION: [address] [place] [address] B. SUBJECTIVE: This is a 72-year-old male, seen and examined in rounds earlier this morning without significant clinical changes or reported active bleeding. Complaining of constipation and postprandial abdominal distention. The entire chart is reviewed including but not limited to the most recent lab and radiology study results, current and the previous medication list, current and the previous medical events with less abdominal pain. The entire chart is reviewed including but not limited to the most recent lab and radiology study results, current and the previous medication list, current and the previous medical records. Today's lab showed blood glucose level of 134. The case was discussed with the staff at length. PHYSICAL EXAMINATION: GENERAL: A 72-year-old male, awake, alert, oriented. VITAL SIGNS: Afebrile, with pulse of 72, respiratory rate 20 to 22, blood pressure 164/80. HEENT: Showed pale, dry, oral mucous membranes. Nonicteric sclerae. LUNGS: Few scattered crepitations. Decreased air entry at bases. HEART: Positive S1 and S2. ABDOMEN: Soft. Bowel sounds are present with mid epigastric as well as left lower quadrant mild tenderness. No mass or organomegaly. No rebound tenderness or guarding. RECTAL: Deferred. EXTREMITIES: No significant clubbing, cyanosis, or edema. NEUROLOGIC: No reported new neurological deficits, sensory or motor. It has to be mentioned that the patient is somewhat tolerating oral intake well with much less complaint of left-sided abdominal pain. We will add Citrate of Magnesium 60 mL twice a day for the following 1 to 2 days to induce bowel movement. Guaiac all the stool daily x3. Frank Chamorro MD
--- NOTE | 2018-02-16 23:27 | CP.PCM.PN ---
Objective - Vital Signs/Intake and Output Vital Signs (last 24 hours): Temp Pulse Resp BP Pulse Ox 98.1 F 90 20 131/62 97 02/16/18 15:52 02/16/18 15:52 02/16/18 15:52 02/16/18 15:52 02/16/18 15:52 Intake and Output: 02/16/1818 18:59 06:59 Intake Total 400 Balance 400 - Medications Medications: Current Medications Aspirin (Ecotrin) 81 mg PO DAILY [facility] Last Admin: 02/16/18 13:17 Dose: 81 mg Belladonna/Phenobarbital () 1 tab PO BID [facility] Last Admin: 02/16/18 17:28 Dose: 1 tab Calcitriol (Rocaltrol) 0.25 mcg PO DAILY [facility] Last Admin: 02/16/18 13:17 Dose: 0.25 mcg Calcium Acetate (Phoslo) 667 mg PO TIDCC [facility] Last Admin: 02/16/18 17:28 Dose: 667 mg Ciprofloxacin (Cipro) 250 mg PO DAILY [facility] PRN Reason: Protocol Last Admin: 02/16/18 13:18 Dose: 250 mg Finasteride (Proscar) 5 mg PO HS [facility] Last Admin: 02/16/18 22:05 Dose: 5 mg Hydralazine HCl (Apresoline) 100 mg PO Q8 [facility] Last Admin: 02/16/18 22:05 Dose: 100 mg Insulin Human Regular (Novolin R) 0 unit SC ACHS [facility] PRN Reason: Protocol Last Admin: 02/16/18 22:11 Dose: Not Given Metoprolol Succinate (Toprol Xl) 200 mg PO DAILY [facility] Last Admin: 02/16/18 13:16 Dose: 200 mg Metronidazole (Flagyl) 500 mg PO Q8 [facility] PRN Reason: Protocol Last Admin: 02/16/18 22:05 Dose: 500 mg Morphine Sulfate (Morphine) 2 mg SC Q4 PRN PRN Reason: Pain, moderate (4-7) Nitroglycerin (Nitro-Bid 2% Oint) 1 ea TOP Q6 [facility] Last Admin: 02/16/18 17:28 Dose: 1 ea Pantoprazole Sodium (Protonix Ec Tab) 40 mg PO DAILY [facility] Last Admin: 02/16/18 13:17 Dose: 40 mg Polyethylene Glycol (Miralax) 17 gm PO DAILY [facility] Stop: 02/17/18 18:01 Last Admin: 02/16/18 13:17 Dose: 17 gm Rosuvastatin Calcium (Crestor) 10 mg PO [facility] Last Admin: 02/16/18 22:05 Dose: 10 mg - Labs Labs: 02/14/18 07:03 02/14/18 07:03 Assessment and Plan (1) Abdominal pain Status: Acute (2) Diverticulitis Status: Acute (3) CKD (chronic kidney disease) Status: Acute (4) ESRD needing dialysis Status: Acute (5) Hypertension Status: Chronic
[2018-02-17] MEDS: Nitroglycerin 2% Ointment Foilpak UD TOP SCH ×4 (00:31→17:37)
--- NOTE | 2018-02-17 00:34 | CON ---
DATE: 02/16/2018 FOLLOWUP RENAL CONSULTATION LOCATION: The patient is located in room 653, bed B. REASON FOR RENAL CONSULTATION: End-stage renal disease, continuation of hemodialysis. REQUESTED BY: Emilio Israel MD HISTORY OF PRESENT ILLNESS: Mr. Richards is a 72 years old elderly -[place] male with a past medical history significant for longstanding hypertension, diabetes, end-stage renal disease on hemodialysis three times a week Tuesday, , Tuesday, status post pacemaker, diverticulosis and recurrent admissions for diverticulitis in the last 2 months. Now the patient was admitted with chief complaints of decreased p.o. intake, poor appetite and left lower quadrant pain and the patient is being treated for diverticulitis again. The patient is not in acute distress. The patient is being dialyzed this morning. The UF goal is about 3 liters. No chest pain. No palpitation. No nausea or vomiting. The patient claims he had three bowel movements last night after laxative. PHYSICAL EXAMINATION: VITAL SIGNS: As follows; blood pressure 177/89, pulse 91, respirations 20, temperature 97.8, saturation 100%. Height 6 feet 1 inch, weight is 202 pounds. GENERAL: Mr. Richards is a 72 years elderly -[place] male, moderately built, moderately nourished, not in acute distress. HEENT: Pupils normal and reactive to light and accommodation. Conjunctivae pink. Sclerae anicteric. Tongue is moist. Trachea is midline. LUNGS: Symmetric on both sides. Bilateral breath sounds present. Clear to auscultation. CVS: [place] at the fifth intercostal space, midclavicular line. S1, S2 audible. No murmur or gallop. ABDOMEN: Slightly distended, soft, nontender. Bowel sounds present. No hepatosplenomegaly. 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 Nonfocal neuro examination. Cranial nerves II-XII grossly intact. Sensory and motor system is within normal limits. EXTREMITIES: No cyanosis, no clubbing, no edema on the right leg status post left BKA. LABORATORY DATA: Include as follows; Accu-Chek 132 and 131. No other labs were available and blood culture x2 negative as of 02/10/2018. IMPRESSION: In summary, Mr. Richards is a 72 years old elderly -[place] male with a past medical history significant for longstanding hypertension; diabetes; end-stage renal disease on hemodialysis three times a week Tuesday, , Tuesday; diverticulosis, status post treatment for diverticulitis and multiple admissions in the last few months and was admitted again with poor appetite, decreased p.o. intake and left lower quadrant pain and also hyperkalemia. The patient is being dialyzed. 1. End-stage renal disease. Continue hemodialysis three times a week Tuesday, , Tuesday. 2. Hypertension. Blood pressure is still running high. Continue hydralazine 100 mg p.o. every 8 hours and also continue metoprolol 200 mg p.o. daily and nitro paste 1 inch topical every 6 hours. 3. Diverticulitis. Continue his current medication, ciprofloxacin 250 mg p.o. daily and Flagyl 500 mg p.o. every 8 hours. 4. Diabetes. Sugars are under control. 5. Benign prostatic hypertrophy. Continue Proscar and also continue phosphate binders and PhosLo 667 mg p.o. t.i.d. and also Rocaltrol 0.25 mcg p.o. daily. We will repeat labs in a.m. with CBC and BMP. We will follow with you. Thank you for allowing me to participate in your patient's care. Blanca Thakkar MD
[2018-02-17] MEDS: (Novolin R) Insulin Human Regular 100 units/ml vial SC SCH ×4 (07:52→21:23)
[2018-02-17] MEDS: Pantoprazole 40 mg EC Tab PO SCH (10:44)
[2018-02-17] MEDS: Metoprolol Succinate 100 mg XL Tab PO SCH (10:44)
[2018-02-17] MEDS: POLYETHYLENE GLYCOL 3350 17 GM/Dose PACKET PO SCH (10:46)
[2018-02-17] MEDS: Belladonna-Phenobarbital PO SCH ×2 (10:50→17:37)
[2018-02-17] MEDS: guaiFENesin 200 mg/10 ml Syrup UD PO PRN (18:34)
--- NOTE | 2018-02-17 21:52 | CP.PCM.PN ---
Subjective - Date & Time of Evaluation Date of Evaluation: 02/17/18 Time of Evaluation: 21:52 - Subjective Subjective: pt is seen and examined, follow up consult is dictated #[id number] for hd in am Objective - Vital Signs/Intake and Output Vital Signs (last 24 hours): Temp Pulse Resp BP Pulse Ox 98.1 F 77 20 160/80 H 99 02/17/18 15:48 02/17/18 15:48 02/17/18 15:48 02/17/18 15:48 02/17/18 15:48 Intake and Output: 02/17/18 02/18/18 18:59 06:59 Intake Total 280 Balance 280 - Medications Medications: Current Medications Aspirin (Ecotrin) 81 mg PO DAILY [facility] Last Admin: 02/17/18 10:43 Dose: 81 mg Belladonna/Phenobarbital () 1 tab PO BID [facility] Last Admin: 02/17/18 17:37 Dose: 1 tab Calcitriol (Rocaltrol) 0.25 mcg PO DAILY [facility] Last Admin: 02/17/18 10:47 Dose: 0.25 mcg Calcium Acetate (Phoslo) 667 mg PO TIDCC [facility] Last Admin: 02/17/18 17:37 Dose: 667 mg Ciprofloxacin (Cipro) 250 mg PO DAILY [facility] PRN Reason: Protocol Last Admin: 02/17/18 10:44 Dose: 250 mg Finasteride (Proscar) 5 mg PO HS [facility] Last Admin: 02/17/18 21:42 Dose: 5 mg Guaifenesin (Robitussin) 200 mg PO Q4H PRN PRN Reason: Cough and congestion Last Admin: 02/17/18 18:34 Dose: 200 mg Hydralazine HCl (Apresoline) 100 mg PO Q8 [facility] Last Admin: 02/17/18 21:43 Dose: 100 mg Insulin Human Regular (Novolin R) 0 unit SC ACHS [facility] PRN Reason: Protocol Last Admin: 02/17/18 21:23 Dose: Not Given Metoprolol Succinate (Toprol Xl) 200 mg PO DAILY [facility] Last Admin: 02/17/18 10:44 Dose: 200 mg Metronidazole (Flagyl) 500 mg PO Q8 [facility] PRN Reason: Protocol Last Admin: 02/17/18 21:42 Dose: 500 mg Morphine Sulfate (Morphine) 2 mg SC Q4 PRN PRN Reason: Pain, moderate (4-7) Nitroglycerin (Nitro-Bid 2% Oint) 1 ea TOP Q6 [facility] Last Admin: 02/17/18 17:37 Dose: 1 ea Pantoprazole Sodium (Protonix Ec Tab) 40 mg PO DAILY [facility] Last Admin: 02/17/18 10:44 Dose: 40 mg Rosuvastatin Calcium (Crestor) 10 mg PO HS [facility] Last Admin: 02/17/18 21:42 Dose: 10 mg - Labs Labs: 02/14/18 07:03 02/14/18 07:03
--- NOTE | 2018-02-17 23:27 | CP.PCM.PN ---
Subjective - Date & Time of Evaluation Date of Evaluation: 02/17/18 Time of Evaluation: 18:40 - Subjective Subjective: Pt seen and examined Objective - Vital Signs/Intake and Output Vital Signs (last 24 hours): Temp Pulse Resp BP Pulse Ox 98.1 F 77 20 160/80 H 99 02/17/18 15:48 02/17/18 15:48 02/17/18 15:48 02/17/18 15:48 02/17/18 15:48 Intake and Output: 02/17/18 02/18/18 18:59 06:59 Intake Total 280 Balance 280 - Medications Medications: Current Medications Aspirin (Ecotrin) 81 mg PO DAILY [facility] Last Admin: 02/17/18 10:43 Dose: 81 mg Belladonna/Phenobarbital () 1 tab PO BID [facility] Last Admin: 02/17/18 17:37 Dose: 1 tab Calcitriol (Rocaltrol) 0.25 mcg PO DAILY [facility] Last Admin: 02/17/18 10:47 Dose: 0.25 mcg Calcium Acetate (Phoslo) 667 mg PO TIDCC [facility] Last Admin: 02/17/18 17:37 Dose: 667 mg Ciprofloxacin (Cipro) 250 mg PO DAILY [facility] PRN Reason: Protocol Last Admin: 02/17/18 10:44 Dose: 250 mg Finasteride (Proscar) 5 mg PO HS [facility] Last Admin: 02/17/18 21:42 Dose: 5 mg Guaifenesin (Robitussin) 200 mg PO Q4H PRN PRN Reason: Cough and congestion Last Admin: 02/17/18 18:34 Dose: 200 mg Hydralazine HCl (Apresoline) 100 mg PO Q8 [facility] Last Admin: 02/17/18 21:43 Dose: 100 mg Insulin Human Regular (Novolin R) 0 unit SC ACHS [facility] PRN Reason: Protocol Last Admin: 02/17/18 21:23 Dose: Not Given Metoprolol Succinate (Toprol Xl) 200 mg PO DAILY [facility] Last Admin: 02/17/18 10:44 Dose: 200 mg Metronidazole (Flagyl) 500 mg PO Q8 [facility] PRN Reason: Protocol Last Admin: 02/17/18 21:42 Dose: 500 mg Morphine Sulfate (Morphine) 2 mg SC Q4 PRN PRN Reason: Pain, moderate (4-7) Nitroglycerin (Nitro-Bid 2% Oint) 1 ea TOP Q6 [facility] Last Admin: 02/17/18 17:37 Dose: 1 ea Pantoprazole Sodium (Protonix Ec Tab) 40 mg PO DAILY [facility] Last Admin: 02/17/18 10:44 Dose: 40 mg Rosuvastatin Calcium (Crestor) 10 mg PO HS [facility] Last Admin: 02/17/18 21:42 Dose: 10 mg - Labs Labs: 02/14/18 07:03 02/14/18 07:03 Assessment and Plan (1) Abdominal pain Status: Acute (2) Diverticulitis Status: Acute (3) CKD (chronic kidney disease) Status: Acute (4) ESRD needing dialysis Status: Acute (5) Hypertension Status: Chronic
[2018-02-18] MEDS: Nitroglycerin 2% Ointment Foilpak UD TOP SCH ×3 (01:08→12:46)
[2018-02-18] MEDS: guaiFENesin 200 mg/10 ml Syrup UD PO PRN ×2 (03:08→14:52)
[2018-02-18 07:13] LABS: HEMOGLOBIN 11.3 g/dL (12.0-18.0); MEAN CELL VOLUME 98.9 fL (80.0-94.0); MEAN CORPUSCULAR HGB CONC 33.3 g/dL (33.0-37.0); MEAN PLATELET VOLUME 8.7 fL (7.2-11.7); RBC 3.42 Mil/uL (4.40-5.90); RED CELL DISTRIBUTION WIDTH 15.3 % (11.5-14.5); WHITE BLOOD COUNT 5.9 K/uL (4.8-10.8)
[2018-02-18] MEDS: (Novolin R) Insulin Human Regular 100 units/ml vial SC SCH ×2 (07:25→12:00)
[2018-02-18 07:40] LABS: ALB/GLOB RATIO 0.9 (1.0-2.1); ALBUMIN 3.6 g/dL (3.5-5.0)
[2018-02-18] MEDS: Belladonna-Phenobarbital PO SCH (12:48)
[2018-02-18] MEDS: Metoprolol Succinate 100 mg XL Tab PO SCH (12:48)
[2018-02-18] MEDS: Pantoprazole 40 mg EC Tab PO SCH (12:49)
[2018-02-18 13:18] VITALS: BP 161/79; PULSE 93; RESP 18; TEMP 98.1; O2SAT 99
[2018-02-18] MEDS ORDERED: Benzocaine/Menthol (Cepacol) Lozenge MT STA (14:49)
--- NOTE | 2018-02-18 15:58 | CP.PCM.PN ---
Subjective - Date & Time of Evaluation Date of Evaluation: 02/18/18 Time of Evaluation: 15:57 - Subjective Subjective: pt is seen and examined, follow up consult is dictated #[id number] s/p hd this am, stable tx, had a uf 2.2 lit Objective - Vital Signs/Intake and Output Vital Signs (last 24 hours): Temp Pulse Resp BP Pulse Ox 98.1 F 93 H 18 161/79 H 99 02/18/18 13:00 02/18/18 13:00 02/18/18 13:00 02/18/18 13:00 02/18/18 13:00 Intake and Output: 02/18/18 02/18/18 06:59 18:59 Intake Total 240 300 Balance 240 300 - Medications Medications: Current Medications Aspirin (Ecotrin) 81 mg PO DAILY [facility] Last Admin: 02/18/18 12:49 Dose: 81 mg Belladonna/Phenobarbital () 1 tab PO BID [facility] Last Admin: 02/18/18 12:48 Dose: 1 tab Calcitriol (Rocaltrol) 0.25 mcg PO DAILY [facility] Last Admin: 02/18/18 12:49 Dose: 0.25 mcg Calcium Acetate (Phoslo) 667 mg PO TIDCC [facility] Last Admin: 02/18/18 12:47 Dose: 667 mg Ciprofloxacin (Cipro) 250 mg PO DAILY [facility] PRN Reason: Protocol Last Admin: 02/18/18 12:49 Dose: 250 mg Finasteride (Proscar) 5 mg PO HS [facility] Last Admin: 02/17/18 21:42 Dose: 5 mg Guaifenesin (Robitussin) 200 mg PO Q4H PRN PRN Reason: Cough and congestion Last Admin: 02/18/18 14:52 Dose: 200 mg Hydralazine HCl (Apresoline) 100 mg PO Q8 [facility] Last Admin: 02/18/18 13:55 Dose: 100 mg Insulin Human Regular (Novolin R) 0 unit SC ACHS [facility] PRN Reason: Protocol Last Admin: 02/18/18 12:00 Dose: Not Given Metoprolol Succinate (Toprol Xl) 200 mg PO DAILY [facility] Last Admin: 02/18/18 12:48 Dose: 200 mg Metronidazole (Flagyl) 500 mg PO Q8 [facility] PRN Reason: Protocol Last Admin: 04/21/18 12:59 Dose: 500 mg Morphine Sulfate (Morphine) 2 mg SC Q4 PRN PRN Reason: Pain, moderate (4-7) Nitroglycerin (Nitro-Bid 2% Oint) 1 ea TOP Q6 [facility] Last Admin: 02/18/18 12:46 Dose: 1 ea Pantoprazole Sodium (Protonix Ec Tab) 40 mg PO DAILY [facility] Last Admin: 02/18/18 12:49 Dose: 40 mg Rosuvastatin Calcium (Crestor) 10 mg PO HS [facility] Last Admin: 02/17/18 21:42 Dose: 10 mg - Labs Labs: 02/18/18 07:09 02/18/18 07:09
--- NOTE | 2018-02-18 17:30 | CP.PCM.PN ---
Subjective - Date & Time of Evaluation Date of Evaluation: 02/18/18 Time of Evaluation: 15:00 - Subjective Subjective: Patient seen today after HD , tolerating diet, denies any abdominal pain, N/V/ + BM bp- stable Objective - Vital Signs/Intake and Output Vital Signs (last 24 hours): Temp Pulse Resp BP Pulse Ox 98.1 F 93 H 18 161/79 H 99 02/18/18 13:00 02/18/18 13:00 02/18/18 13:00 02/18/18 13:00 02/18/18 13:00 Intake and Output: 02/18/18 02/18/18 06:59 18:59 Intake Total 240 300 Balance 240 300 - Labs Labs: 02/18/18 07:09 02/18/18 07:09 Assessment and Plan - Assessment and Plan (Free Text) Assessment: A/P 72 yr old male with pmhx of HTN, Hypercholesterolemia, End Stage Renal Disease on HD admitted with abdominal pain / diverticulitis Dr. Sneed consulted for abdominal pain , recommends no surgical intervention , continue with BM regimen Pateitn started on laxative and abdominal pain improved and tolerating diet without abdominal pain D/W Dr. Israel, stable for discharge home today and f/u with Dr. Israel offic ein 1 week and continue HD as scheduled Discharge plan discussed with patient who understands and agrees with plan
--- NOTE | 2018-02-18 18:11 | CP.PCM.DIS ---
Provider - Provider Date of Admission: 02/11/18 14:55 Attending physician: Emilio Israel MD Diagnosis - Discharge Diagnosis (1) Abdominal pain Status: Acute (2) Diverticulitis Status: Acute (3) CKD (chronic kidney disease) Status: Acute (4) ESRD needing dialysis Status: Acute (5) Hypertension Status: Chronic Priority: Low Hospital Course - Lab Results Lab Results: Micro Results 02/10/18 18:30 Blood Blood Culture - Final NO GROWTH AFTER 5 DAYS 02/10/18 18:30 Blood Gram Stain - Final TEST NOT PERFORMED 02/10/18 16:04 Blood Blood Culture - Final NO GROWTH AFTER 5 DAYS 02/10/18 16:04 Blood Gram Stain - Final TEST NOT PERFORMED Most Recent Lab Values WBC 5.9 K/uL (4.8-10.8) 02/18/18 07:09 RBC 3.42 Mil/uL (4.40-5.90) L 02/18/18 07:09 Hgb 11.3 g/dL (12.0-18.0) L 02/18/18 07:09 Hct 33.8 % (35.0-51.0) L 02/18/18 07:09 MCV 98.9 fL (80.0-94.0) H 02/18/18 07:09 MCH 33.0 pg (27.0-31.0) H 02/18/18 07:09 MCHC 33.3 g/dL (33.0-37.0) 02/18/18 07:09 RDW 15.3 % (11.5-14.5) H 02/18/18 07:09 Plt Count 146 K/uL (130-400) 02/18/18 07:09 MPV 8.7 fL (7.2-11.7) 02/18/18 07:09 Neut % (Auto) 59.9 % (50.0-75.0) 02/10/18 16:04 Lymph % (Auto) 23.5 % (20.0-40.0) 02/10/18 16:04 Nye % (Auto) 12.7 % (0.0-10.0) H 02/10/18 16:04 Eos % (Auto) 3.1 % (0.0-4.0) 02/10/18 16:04 Baso % (Auto) 0.8 % (0.0-2.0) 02/10/18 16:04 Neut # (Auto) 2.8 K/uL (1.8-7.0) 02/10/18 16:04 Lymph # (Auto) 1.1 K/uL (1.0-4.3) 02/10/18 16:04 Nye # (Auto) 0.6 K/uL (0.0-0.8) 02/10/18 16:04 Eos # (Auto) 0.1 K/uL (0.0-0.7) 02/10/18 16:04 Baso # (Auto) 0.0 K/uL (0.0-0.2) 02/10/18 16:04 Sodium 133 mmol/L (132-148) 02/18/18 07:09 Potassium 5.1 mmol/L (3.6-5.2) 02/18/18 07:09 Chloride 91 mmol/L (98-107) L 02/18/18 07:09 Carbon Dioxide 27 mmol/L (22-30) 02/18/18 07:09 Anion Gap 20 (10-20) 02/18/18 07:09 BUN 53 mg/dL (9-20) H 02/18/18 07:09 Creatinine 8.6 mg/dL (0.8-1.5) H* 02/18/18 07:09 Est GFR ( Amer) 7 02/18/18 07:09 Est GFR (Non-Af Amer) 6 02/18/18 07:09 POC Glucose (mg/dL) 80 mg/dL (65-110) 02/18/18 11:40 Random Glucose 137 mg/dL (75-110) H 02/18/18 07:09 Calcium 8.0 mg/dl (8.6-10.4) L 02/18/18 07:09 Phosphorus 4.8 mg/dL (2.5-4.5) H 02/18/18 07:09 Total Bilirubin 0.7 mg/dL (0.2-1.3) 02/18/18 07:09 AST 30 U/L (17-59) 02/18/18 07:09 ALT 18 U/L (21-72) L D 02/18/18 07:09 Alkaline Phosphatase 95 U/L (38-126) 02/18/18 07:09 Troponin I 0.0290 ng/mL (0.00-0.120) 02/10/18 16:04 Total Protein 7.6 g/dL (6.3-8.3) 02/18/18 07:09 Albumin 3.6 g/dL (3.5-5.0) 02/18/18 07:09 Globulin 4.0 gm/dL (2.2-3.9) H 02/18/18 07:09 Albumin/Globulin Ratio 0.9 (1.0-2.1) L 02/18/18 07:09 Amylase 111 U/L (30-110) H D 02/13/18 06:39 Lipase 239 U/L (23-300) 02/13/18 06:39 Alpha Fetoprotein 1.9 ng/mL (0.0-7.5) 02/12/18 08:42 Carcinoembryonic Ag 5.6 ng/mL (0-3.0) H 02/12/18 08:42 - Hospital Course Hospital Course: A/P 72 yr old male with pmhx of HTN, Hypercholesterolemia, End Stage Renal Disease on HD admitted with abdominal pain / diverticulitis Dr. Sneed consulted for abdominal pain , recommends no surgical intervention , continue with BM regimen Pateitn started on laxative and abdominal pain improved and tolerating diet without abdominal pain pt is stable for discharge home today and f/u with me in offic in 1 week and continue HD as scheduled Discharge plan discussed with patient who understands and agrees with plan Discharge Exam - Head Exam Head Exam: ATRAUMATIC Discharge Plan - Discharge Medications Prescriptions: hydrALAZINE [Apresoline] 100 mg PO Q8 #90 tab Polyethylene Glycol 3350 [Miralax] 17 gm PO DAILY 10 Days packet guaiFENesin [Robitussin] 200 mg PO Q4H PRN #240 udc PRN Reason: Cough And Congestion Metoprolol Succinate [Toprol XL] 200 mg PO DAILY #30 tab - Follow Up Plan Condition: GOOD Disposition: HOME/ ROUTINE Instructions: Dialysis Diet , Diverticulitis (DC), Hemodialysis (DC), End Stage Kidney Disease, Acute Abdominal Pain (DC) Referrals: Emilio Israel MD [Staff Provider] -
--- NOTE | 2018-02-18 19:21 | PN ---
DATE: 02/18/2018 LOCATION: 653, bed B. SUBJECTIVE: This is a 72-year-old male seen and examined in rounds today on the dialysis unit without any reported active bleeding or significant complaint of chest pain, palpitation, or shortness of breath. The patient still has, however, mild mid epigastric as well as left lower quadrant tenderness and pain. No reported rectal bleeding. The entire chart is reviewed, including but not limited to the most recent labs and radiology study results, current and the previous medication list, current and the previous medical events. Case discussed with the staff at length. Today's labs showed hemoglobin of 11.3, hematocrit 33.8, with normal white blood cells and platelet count, BUN 53, creatinine 8.6, blood glucose level 139, calcium 8, phosphorus 4.8. PHYSICAL EXAMINATION: GENERAL: This is a 72-year-old male. VITAL SIGNS: Afebrile, with pulse of 92, respiratory rate 20 to 22, blood pressure of 168/76. HEENT: Showed pale, dry oral mucous membranes. Nonicteric sclerae. LUNGS: Scattered mild crepitations. Decreased air entry at bases. HEART: Positive S1 and S2 with increased rate. ABDOMEN: Soft. Bowel sounds are present with mid epigastric as well as left-sided abdominal tenderness. No mass or organomegaly. No rebound tenderness or guarding. EXTREMITIES: Without significant clubbing, cyanosis, or edema. NEUROLOGIC: No reported new neurological deficits, sensory or motor. IMPRESSION: 1. Diverticulosis with acute diverticulitis. 2. Re-exacerbation of peptic ulcer disease. 3. End-stage renal disease, on hemodialysis. 4. Anemia, most likely secondary to above. 5. Change of bowel movement of unclear etiology, mainly constipation, the patient on low dose of citrate of magnesium, responds well. 6. Known history of but not limited to recent acute pancreatitis, improving; poorly controlled hypertension with poorly controlled diabetes mellitus. 7. Diabetic gastroparesis by history. 8. Known history of hyperlipidemia. 9. Cardiac arrhythmia, with status post pacemaker insertion. SUGGESTION: 1. Continue current management. 2. Follow up on cancer markers. 3. Despite the patient may need in the future a colonoscopy, no aggressive GI workup in the meantime for now due to the patient's episode of acute pancreatitis and acute diverticulitis. 4. We will follow up closely with you and no citrus, no seeds. Frank Chamorro MD
--- NOTE | 2018-02-20 06:17 | PN ---
DATE: 02/17/2018. FOLLOWUP RENAL CONSULTATION LOCATION: Room 653, bed B. REQUESTED BY: Dr. Emilio Israel. REASON FOR RENAL CONSULTATION: End-stage renal disease for continuation with hemodialysis and diverticulitis. HISTORY OF PRESENT ILLNESS: Mr. Richards is a 72 years old elderly male with a past medical history significant for longstanding hypertension, diabetes, end-stage renal disease, diverticulosis, status post pacemaker, multiple admission to the hospital recently with diverticulitis. The patient is being treated again for acute diverticulitis. The patient initially presented with decreased p.o. intake and poor appetite and abdominal distention and left lower quadrant pain. The patient is feeling slightly better. Denies any chest pain or palpitation. Denies any fever or cough. No abdominal pain today. No nausea, no vomiting. PHYSICAL EXAMINATION: VITAL SIGNS: As follows; blood pressure 160/80, pulse 77, respiration 20, temperature 98.1, saturation 99%. Height 6 feet 1 inch and weight is 202 pounds. GENERAL: On physical exam, Mr. Richards 72 years old elderly male, moderately built, moderately nourished, not in acute distress. HEENT: Pupils normal, reactive to light and accommodation. Conjunctiva pink. Sclerae anicteric. Tongue is moist. Trachea is midline. LUNGS: Symmetric on both sides. Bilateral breath sounds present. Clear to auscultation. CVS: [place] at the fifth intercostal space, midclavicular line. S1 and S2 audible. No murmur or gallop. ABDOMEN: Normal in appearance. Slightly distended, soft, tympanic. No guarding, no rigidity. No hepatosplenomegaly. FIELD SERVICE SPECIALIST: The patient is alert, awake, oriented x3. Nonfocal neuro examination. Cranial nerves II through XII grossly intact. Sensory and motor system is grossly within normal limits. EXTREMITIES: No cyanosis, no clubbing, no edema. The patient has left BKA. CURRENT MEDICATIONS: Include as follows; hydralazine 100 mg p.o. every 8 hours, Cipro 250 mg p.o. daily, Crestor 10 mg at bedtime, 1 tablet p.o. b.i.d., aspirin 81 mg p.o. b.i.d. daily, Flagyl 500 mg p.o. every 8 hours, morphine 2 mg subcu every 4 hours p.r.n., Nitro-Bid ointment 1 inch topically every 6 hours, Humulin R for sliding scale, Colace, calcium acetate 667 mg p.o. t.i.d., Proscar 5 mg p.o. at bedtime, Protonix 40 mg daily, Robitussin 200 mg p.o. every 4 hours p.r.n., Rocaltrol 0.25 mcg p.o. daily, Toprol XL 200 mg p.o. daily. LABORATORY DATA: No new labs are available. Accu-Cheks 120, 130, 125, and 128. ASSESSMENT AND PLAN: In summary, Mr. Richards is a 72 years old elderly male with a history of hypertension, diabetes, end-stage renal disease, diverticulosis, status post pacemaker placement and being treated for diverticulitis. 1. End-stage renal disease. Continue hemodialysis three times a week Tuesday, , Tuesday. 2. Uncontrolled hypertension, continue with hydralazine and metoprolol and Nitro-Bid ointment. Blood pressure is improving. 3. Diabetes. Sugars are under control. 4. Diverticulitis. Continue antibiotics, Flagyl and p.o. Cipro as per Dr. Israel. Follow up with surgery. We will follow with you. The patient is scheduled for dialysis tomorrow and check CBC, CMP and phosphorus level in a.m. Thank you for allowing me to participate in your patient's care. Blanca Thakkar MD
--- NOTE | 2018-02-20 06:19 | PN ---
DATE: 02/18/2018. FOLLOWUP RENAL CONSULTATION LOCATION: Room 653, bed B. REQUESTED BY: Dr. Emilio Israel. REASON FOR RENAL CONSULTATION: End-stage renal disease for continuation with hemodialysis, diverticulitis. HISTORY OF PRESENT ILLNESS: Mr. Richards is a 72 years old elderly male with a past medical history significant for longstanding hypertension, diabetes, end-stage renal disease, pacemaker placement, diverticulosis was admitted with decreased p.o. intake, poor appetite and left lower quadrant pain. The patient is being treated for diverticulitis. The patient is on Flagyl and p.o. Cipro. The patient is feeling much better, not in acute distress. No chest pain, no palpitation. No fever, no cough. No abdominal pain, no nausea, vomiting or diarrhea today. The patient underwent hemodialysis today, had ultrafiltration about 2.2 liters. PHYSICAL EXAMINATION: VITAL SIGNS: As follows; blood pressure 175/81, pulse 89, respiration 15, temperature 97.9, saturation 100%. Height 6 feet 1 inch, weight is 202 pounds. GENERAL: Mr. Richards is a 72 years old elderly male, moderately built, moderately nourished, not in acute distress. HEENT: Pupils normal, reactive to light and accommodation. Conjunctivae pink. Sclerae anicteric. Tongue is moist. Trachea is midline. LUNGS: Symmetric on both sides. Bilateral breath sounds present. Clear to auscultation. CVS: [place] at the fifth intercostal space, midclavicular line. S1 and S2 audible. No murmur or gallop. ABDOMEN: Normal in appearance, less distended, soft, tympanic. No guarding, no rigidity. No hepatosplenomegaly. AUTOMOBILE RENTAL AGENT: The patient is alert, awake, oriented x3. Nonfocal neuro examination. Cranial nerves II through XII grossly intact. Sensory and motor system is within normal limits. EXTREMITIES: No cyanosis, no clubbing, no edema on the left leg, status post left BKA. CURRENT MEDICATIONS: Include as follows; omeprazole 40 mg p.o. daily, Proscar 5 mg at bedtime, atorvastatin 20 mg p.o. daily, Rocaltrol 0.25 mcg p.o. daily, aspirin 81 mg daily, calcium acetate 667 mg p.o. t.i.d., hydralazine 100 mg p.o. every 8 hours, Robitussin 200 mg p.o. every 4 hours, MiraLax 17 gm p.o. daily, Toprol XL 200 mg p.o. daily and Lactulose 20 gm p.o. daily. LABORATORY DATA: Include as follows as of 02/18/2018; WBC 5.9, hemoglobin 11.3, hematocrit is 33.8, platelets 146. Sodium 133, potassium 5.1, chloride 91, CO2 27, BUN 53, creatinine 8.6 and glucose is 137, calcium 8, phosphorus 4.8, magnesium was not done, total bili 0.7, AST 30, ALT 18, alkaline phosphatase 95, total protein 7.6, albumin is 3.6. ASSESSMENT AND PLAN: In summary, Mr. Richards is a 72 years old elderly male with a longstanding hypertension, diabetes, hyperlipidemia, end-stage renal disease, diverticulosis, status post pacemaker, being treated for diverticulitis. 1. End-stage renal disease. Continue hemodialysis three times a week Tuesday, , Tuesday, underwent hemodialysis today, had ultrafiltration about 2.2 liters. 2. Hypertension. Blood pressure is stable. Continue his current medications hydralazine, Nitro paste and Toprol XL and advised low-sodium diet. 3. Diabetes type 2. Sugars are under control. 4. Diverticulitis. Continue antibiotics, Cipro, Flagyl as per Dr. Israel. The patient is stable from the renal standpoint and for possible discharge to home today. Thank you for allowing me to participate in your patient's care. Blanca Thakkar MD
--- NOTE | 2018-02-20 08:39 | PN ---
DATE: 02/17/2018. LOCATION: 653 bed B. SUBJECTIVE: This is a 72 years old male seen and examined in rounds, without significant clinical changes, post dialysis without any reported active bleeding. No chest pain or palpitation, but generalized weakness and malaise. The entire chart is reviewed including but not limited to the most recent lab and radiology study results, current and the previous medication list, current and the previous medical events. Today's lab showed blood glucose level of 125. Rest of the lab is still pending and the patient's latest hemoglobin and hematocrit still low, but normal platelet count with increased BUN and creatinine and low calcium. PHYSICAL EXAMINATION: GENERAL: A 72 years old male, awake and alert. VITAL SIGNS: Afebrile with pulse of 72, respiratory rate of 20 to 22, blood pressure of 162/74. HEENT: Showed pale, dry, oral mucous membranes. Nonicteric sclerae. LUNGS: Few scattered crepitation. Decreased air entry at bases. HEART: Positive S1 and S2. ABDOMEN: Soft with slight generalized tenderness. No mass or organomegaly. No rebound tenderness or guarding. The patient still has left lower quadrant tenderness as well as mild mid epigastric and mid abdominal line tenderness. EXTREMITIES: With slight lower extremity edematous changes. No clubbing or cyanosis. NEUROLOGIC: No reported new neurological deficits, sensory or motor. IMPRESSION: 1. Diverticulosis with recurrent diverticulitis. 2. Chronic renal failure, on hemodialysis. 3. Anemia most likely secondary to above. 4. Known history of hypertension. 5. Reexacerbation of peptic ulcer disease. 6. Sense of bowel movement recently of unclear etiology that could be secondary to constipation induced by dialysis and/or his diverticulosis. 7. Acute pancreatitis, subsiding. 8. Poorly controlled hypertension. 9. Known history of hyperlipidemia, cardiac arrhythmia with status post pacemaker insertion. 10. Diabetes mellitus with diabetic gastroparesis, gradually improving. SUGGESTIONS: 1. Continue current management. 2. Repeat lipase and amylase levels. 3. Antireflux measures. 4. Further recommendation to follow. Frank Chamorro MD
== END 2018-02-18 16:51 | disposition home or self-care (01) | DRG 391 ==
LOC: C.ER 14:56 → C.3T 18:15 → C.9E 19:02 → C.6T 19:35 → OBSVTOIN 02-11 14:55
PROVIDERS: ADMIT Internal Medicine; ATTEND Internal Medicine
PROC: 5A1D70Z Performance of Urinary Filtration, Intermittent, Less than 6 Hours Per Day (ICD-10-PCS; principal; 2018-02-11)
PROC: 5A1D70Z Performance of Urinary Filtration, Intermittent, Less than 6 Hours Per Day (ICD-10-PCS; 2018-02-14)
PROC: 5A1D70Z Performance of Urinary Filtration, Intermittent, Less than 6 Hours Per Day (ICD-10-PCS; 2018-02-16)
PROC: 5A1D70Z Performance of Urinary Filtration, Intermittent, Less than 6 Hours Per Day (ICD-10-PCS; 2018-02-18)
DX: K57.32 Diverticulitis of large intestine without perforation or abscess without bleeding (principal); K85.90 Acute pancreatitis without necrosis or infection, unspecified; N18.6 End stage renal disease; I12.0 Hypertensive chronic kidney disease with stage 5 chronic kidney disease or end stage renal disease; N25.81 Secondary hyperparathyroidism of renal origin; E11.43 Type 2 diabetes mellitus with diabetic autonomic (poly)neuropathy; E11.22 Type 2 diabetes mellitus with diabetic chronic kidney disease; E78.00 Pure hypercholesterolemia, unspecified; E78.5 Hyperlipidemia, unspecified; E87.5 Hyperkalemia; F17.210 Nicotine dependence, cigarettes, uncomplicated; K31.84 Gastroparesis; K27.9 Peptic ulcer, site unspecified, unspecified as acute or chronic, without hemorrhage or perforation; K59.00 Constipation, unspecified; N40.0 Benign prostatic hyperplasia without lower urinary tract symptoms; E11.65 Type 2 diabetes mellitus with hyperglycemia; D63.8 Anemia in other chronic diseases classified elsewhere; I49.9 Cardiac arrhythmia, unspecified; Z79.899 Other long term (current) drug therapy; Z89.512 Acquired absence of left leg below knee; Z91.11 Patient's noncompliance with dietary regimen; Z95.0 Presence of cardiac pacemaker; Z99.2 Dependence on renal dialysis; Z79.4 Long term (current) use of insulin

== ENCOUNTER 2018-03-14 15:29 | Inpatient (IN) | payer MEDICARE, BC ==
[2018-03-14 15:34] VITALS: BMI 23.7
[2018-03-14] MEDS ORDERED: Iodixanol 320 MG/ML 100 ML BOTTLE IV ONE (15:55)
[2018-03-14] MEDS ORDERED: Sodium Chloride 0.9% 1,000 ML IV SCH (16:00)
--- NOTE | 2018-03-14 16:13 | C.PDOC ---
History Of Present Illness 72 y/o male with history of ESRD on hemodialysis(T, Thurs, Sat) , HTN, s/p amputation sent to ED from dialysis for tremors and "could not get words out". Patient finished dialysis prior to developing symptoms and currently denies fever, pain or any other complaints at this time. Time Seen by Provider: 03/14/18 15:40 Chief Complaint (Nursing): High Blood Pressure History Per: Patient History/Exam Limitations: no limitations Onset/Duration Of Symptoms: Hrs Current Symptoms Are (Timing): Still Present Past Medical History Reviewed: Historical Data, Nursing Documentation, Vital Signs Vital Signs: Last Vital Signs Temp 98.7 F 03/17/18 07:00 Pulse 92 H 03/17/18 08:00 Resp 20 03/17/18 07:00 BP 166/70 H 03/17/18 07:00 Pulse Ox 97 03/17/18 07:00 - Medical History PMH: HTN, Hypercholesterolemia, End Stage Renal Disease, Chronic Kidney Disease Surgical History: Pacemaker (12/17) - [facility] Procedures (02/11/18) BYPASS LEFT POPLITEAL ARTERY TO FOOT ARTERY, OPEN APPROACH (12/27/15) DETACHMENT AT LEFT 2ND TOE, MID, OPEN APPROACH (12/27/15) DETACHMENT AT LEFT 5TH TOE, COMPLETE, OPEN APPROACH (12/27/15) DETACHMENT AT LEFT LOWER LEG, HIGH, OPEN APPROACH (12/13/16) DIALYSIS ARTERIOVENOSTOM (04/08/14) EXCISION OF DESCENDING COLON, ENDO, DIAGN (12/22/17) EXCISION OF LEFT FOOT SKIN, EXTERNAL APPROACH (12/27/15) EXCISION OF LEFT GREATER SAPHENOUS VEIN, OPEN APPROACH (12/27/15) EXCISION OF STOMACH, PYLORUS, ENDO, DIAGN (12/22/17) FLUOROSCOPY OF LEFT HEART USING LOW OSMOLAR CONTRAST (12/27/15) FLUOROSCOPY OF MULT COR ART USING L OSM CONTRAST (12/27/15) HEMODIALYSIS (04/08/14) INSERTION OF ENDOTRACHEAL AIRWAY INTO TRACHEA, VIA OPENING (12/13/16) INSERTION OF INFUSION DEV INTO SUP VENA CAVA, PERC APPROACH (12/27/15) INSERTION OF INFUSION DEVICE INTO R ATRIUM, PERC APPROACH (08/20/15) MEASURE OF CARDIAC SAMPL & PRESSURE, L HEART, PERC APPROACH (12/27/15) PERFORMANCE OF CARDIAC OUTPUT, SINGLE, MANUAL (12/13/16) PERFORMANCE OF URINARY FILTRATION, MULTIPLE (12/13/16) PLAIN RADIOGRAPHY OF AORTA, BI LE ART USING L OSM CONTRAST (12/27/15) RESPIRATORY VENTILATION, LESS THAN 24 CONSECUTIVE HOURS (12/13/16) TRANSFUSE NONAUT RED BLOOD CELLS IN PERIPH VEIN, PERC (12/27/15) ULTRASONOGRAPHY OF SUPERIOR VENA CAVA, GUIDANCE (12/27/15) VENOUS CATHETERIZATION FOR RENAL DIALYSIS (04/08/14) Family History: States: No Known Family Hx - Social History Hx Tobacco Use: Yes Hx Alcohol Use: No Hx Substance Use: No - Immunization History Hx Tetanus Toxoid Vaccination: No Hx Influenza Vaccination: Yes Hx Pneumococcal Vaccination: Yes Review Of Systems Constitutional: Negative for: Fever, Chills Gastrointestinal: Negative for: Nausea, Vomiting Neurological: Negative for: Weakness, Numbness, Dizziness Physical Exam - Physical Exam Appears: Non-toxic, No Acute Distress Skin: Warm, Dry, No Rash Head: Atraumatic, Normacephalic Eye(s): bilateral: Normal Inspection (No nystagmus) Oral Mucosa: Moist Neck: Normal ROM, Supple Cardiovascular: Rhythm Regular Respiratory: Normal Breath Sounds, No Rales, No Rhonchi, No Wheezing Gastrointestinal/Abdominal: Soft, No Tenderness, No Guarding, No Rebound Extremity: Normal ROM, Capillary Refill (<2 seconds) Neurological/Psych: Oriented x3, Normal Speech, Normal Cognition, Normal Cranial Nerves, Normal Motor, Normal Sensation ED Course And Treatment - Laboratory Results Result Diagrams: 03/17/18 07:41 03/17/18 07:41 O2 Sat by Pulse Oximetry: 99 (RA) Pulse Ox Interpretation: Normal NIHSS Stroke Scale - Date/Time Evaluation Performed Date Performed: 03/14/18 Time Performed: 20:47 When Was NIHSS Performed: Baseline - How Severe is the [place] Level of Consciousness: 0=Alert LOC to Questions: 0=Both comments correct LOC to commands: 0=Obeys both correctly Best Gaze: 0=Normal Visual: 0=No visual loss Facial: 0=Normal Motor Arm - Left: 0=No drift Motor Arm - Right: 0=No drift Motor Leg - Left: 0=No drift Motor Leg - Right: 0=No drift Limb Ataxia: 0=Absent Sensory: 0=Normal Best Language: 0=No aphasia Dysarthia: 0=Normal articulation Extinction & Inattention (Neglect): 0=Normal, no object Score: 0 Severity Of Stroke: 0= No Stroke rTPA Inclusion/Exclusion - Refusal of Treatment Patient Refused Treatment: No - Inclusion Criteria for Altepase Patient is 18 years or Older: Yes The Clinical Diagnosis of Ischemic Stroke That is Causing a Potentially Disabling Neurological Deficit: No Time of Onset is Well Established to be Less Than 270 Minute Before Treatment Would Begin: Yes Risk/Benefit Discussed With Patient/Family Member Present: No Medical Decision Making Medical Decision Making: pt with "difficulty getting words out". code stroke called- not tpa candidate as per dr gregg as resolvied symptoms. case discussed with dr mathew, dr mcelroy for hd s/p iv contast and dr gregg. accepted tele. Disposition - Disposition Disposition: HOSPITALIZED Disposition Time: 07:00 Condition: STABLE - Clinical Impression Clinical Impression: Slurred speech - Scribe Statement The provider has reviewed the documentation as recorded by the Scribvictoriano Clay All medical record entries made by the Hectoribvictoriano were at my direction and personally dictated by me. I have reviewed the chart and agree that the record accurately reflects my personal performance of the history, physical exam, medical decision making, and the department course for this patient. I have also personally directed, reviewed, and agree with the discharge instructions and disposition.
--- NOTE | 2018-03-14 16:16 | CT ---
PROCEDURE: CT HEAD WITHOUT CONTRAST. HISTORY: Code Stroke COMPARISON: None available. TECHNIQUE: Axial computed tomography images were obtained through the head/brain without intravenous contrast. Radiation dose: Total exam DLP = 970.17 mGy-cm. This CT exam was performed using one or more of the following dose reduction techniques: Automated exposure control, adjustment of the mA and/or kV according to patient size, and/or use of iterative reconstruction technique. FINDINGS: HEMORRHAGE: No intracranial hemorrhage. BRAIN: Mild chronic periventricular white matter ischemic changes seen extending peripherally into the deep and subcortical white matter both cerebral hemispheres. Suspect age-indeterminate left inferior basal ganglia ischemic changes and questionable artifact versus tiny right bilateral basal infarct. Note however the possibility of a small acute hyperacute infarct not excluded. Moderate generalized volume loss Vascular calcifications both carotid siphons and left vertebral artery VENTRICLES: No obstructive hydrocephalus. CALVARIUM: Unremarkable. PARANASAL SINUSES: Unremarkable as visualized. No significant inflammatory changes. MASTOID AIR CELLS: Unremarkable as visualized. No inflammatory changes. OTHER FINDINGS: None. IMPRESSION: No acute intracranial hemorrhage. Mild chronic white matter ischemic changes. Suspect age-indeterminate left inferior basal ganglia ischemic changes and questionable artifact versus tiny right bilateral basal infarct. Moderate generalized volume loss. Note that these findings discussed with Dr. Harrison at 4:11pm with written down and read back verification.
[2018-03-14 16:29] LABS: BASO % 0.4 % (0.0-2.0); EOS # 0.2 K/uL (0.0-0.7); EOS % 3.8 % (0.0-4.0); HEMOGLOBIN 11.8 g/dL (12.0-18.0); LYMPH # 0.7 K/uL (1.0-4.3); LYMPH % 13.1 % (20.0-40.0); MEAN CELL VOLUME 98.7 fL (80.0-94.0); MEAN CORPUSCULAR HEMOGLOBIN 33.2 pg (27.0-31.0); MEAN CORPUSCULAR HGB CONC 33.7 g/dL (33.0-37.0); MEAN PLATELET VOLUME 8.8 fL (7.2-11.7); MONO # 0.5 K/uL (0.0-0.8); MONO % 9.9 % (0.0-10.0); NEUT # 3.8 K/uL (1.8-7.0); NEUT % 72.8 % (50.0-75.0); NRBC % 0.1 % (0.0-2.0); RBC 3.55 Mil/uL (4.40-5.90); RED CELL DISTRIBUTION WIDTH 15.4 % (11.5-14.5); WHITE BLOOD COUNT 5.2 K/uL (4.8-10.8)
[2018-03-14 16:36] LABS: INR 1.1; PROTHROMBIN TIME 12.1 SECONDS (9.7-12.2)
[2018-03-14] MEDS ORDERED: Sodium Chloride 0.9% 1,000 ML ONE (16:36)
--- NOTE | 2018-03-14 16:39 | CT ---
CTA BRAIN HISTORY: Code stroke Contiguous helical/transaxial sections of the neck and brain performed following intravenous injection of contrast material employing CTA protocol. Additional 2 dimensional sagittal and coronal reformats provided. IV contrast dose: 100 cc Visipaque 320 Radiation Dose - DLP: 684.45 mGy-cm FINDINGS: [id number] incomplete peripheral calcified atherosclerotic plaque seen at the origin of the left subclavian artery. . Common carotid arteries are widely patent. Tiny at calcified plaque mid left carotid artery. There is minor calcified plaque seen along the left carotid bifurcation without significant stenosis. Mild to moderate calcified plaque seen along the right carotid bifurcation extending at into the proximal margin right internal carotid artery. Changes result in mild narrowing estimated at approximately the 30%. The internal carotid arteries are widely patent with mild calcified atherosclerotic plaque seen along cavernous carotid segments. Both vertebral arteries are visible throughout with small calcifications seen along the proximal on margins of both vertebral arteries. Small calcified plaque also seen along the distal aspect left vertebral artery just proximal to the basilar artery. The basilar artery is patent. The visualized major branches of the [place] are patent. Visualized distal anterior middle and posterior cerebral artery branches are patent and appear relatively symmetric. No evidence of large aneurysm nor vascular malformation. There is a elliptical shaped approximately 2.5 cm trans x 2.1 cm AP area of low attenuation left lobe thyroid gland with internal calcifications. Follow-up thyroid ultrasound recommended. Lung apices clear. Note made of left-sided cataract surgery. IMPRESSION: Partially calcified atherosclerotic plaque changes seen along both carotid bifurcations right greater than left as well as the cavernous carotid arteries and vertebral arteries. No evidence of occlusion or significant stenosis as above.
[2018-03-14 16:45] LABS: ALB/GLOB RATIO 0.9 (1.0-2.1); ALBUMIN 3.8 g/dL (3.5-5.0); CALCIUM 8.6 mg/dl (8.6-10.4)
[2018-03-14 16:52] LABS: TROPONIN I 0.05 ng/mL (0.00-0.120)
--- NOTE | 2018-03-14 17:08 | RAD ---
HISTORY: Code Stroke COMPARISON: Portable chest 12/23/2016. FINDINGS: LUNGS: No active pulmonary disease. PLEURA: No significant pleural effusion identified, no pneumothorax apparent. CARDIOVASCULAR: Resolution of prior CHF pattern. Unipolar pacemaker/AICD again identified. Mild cardiomegaly again evident. OSSEOUS STRUCTURES: No significant abnormalities. VISUALIZED UPPER ABDOMEN: Normal. OTHER FINDINGS: None. IMPRESSION: Resolution of prior CHF. No acute infiltrate or pleural effusion identified. Cardiomegaly is stable with pacemaker/AICD again identified placed.
--- NOTE | 2018-03-14 18:14 | CP.PCM.CON ---
History of Present Illness - History of Present Illness History of Present Illness: 59 yr old male who has pmh htn, of ESRD on HD, who had right sided facial droop, right arm weakness, that is now resolved. He is not a TPA candidate, and upon exam he has a normal neurological exam. no n/v/perez/dizziness/sob/chest pain/ abdomen pain/pain with urination. He denies headache, weakness, or prior spells at this time, but is quite lethargic. PMH/PSH: as above, with left leg aka. FH/SH: as per chart All: nkda On exam: AAox3. Cn 2-12 normal. No facial asymmetry. Speech mildly dysarthric but fluent. Right arm mild pronator drift. right leg 5/5 left arm 5/5,. sensory: decreased ft, pin on right arm. Gait not tested. +2 dtr ul and ll bl. Toes dowgoing. No clonus. Past Patient History - Past Social History Smoking Status: Never Smoked - PSYCHIATRIC Hx Substance Use: No - SURGICAL HISTORY Hx Surgeries: No Meds Allergies/Adverse Reactions: Allergies Allergy/AdvReac Type Severity Reaction Status Date / Time No Known Allergies Allergy Verified 03/14/18 16:27 Results - Labs Result Diagrams: 03/14/18 16:59 03/14/18 16:59 - Imaging and Cardiology CT scan - head Status: Image reviewed by me, Report reviewed by me (ct head normal. ) Assessment & Plan - Assessment and Plan (Free Text) Assessment: 59 yr old male with spell of confusion and right sided weakness that is not completely resolved who is not TPA candidate due to very low NIH score. He most likely has atherosclerosis, and would benefit from stroke workup. Plan: 1. Echo 2. Cta HEAD AND NECK 3. start aspirin 325 mg po qd 4. MRI Brain without rosa 5. DVT prophylaxis 6. PT/ST/OT 8. Admit to telemetry. Thank you dr. gregg Past Patient History - Infectious Disease Hx of Infectious Diseases: None - Past Medical History & Family History Past Medical History?: Yes - Past Social History Smoking Status: Light Smoker < 10 Cigarettes Daily - CARDIAC Hx Hypercholesterolemia: Yes Hx Hypertension: Yes Hx Pacemaker: Yes (12/17) - PULMONARY Other/Comment: light smoker - NEUROLOGICAL Hx Alzheimer's Disease: No - HEENT Hx HEENT Problems: Yes Other/Comment: left eye vision problems - RENAL Hx Chronic Kidney Disease: Yes - ENDOCRINE/METABOLIC Hx Diabetes Mellitus Type 2: Yes - HEMATOLOGICAL/ONCOLOGICAL Hx Blood Disorders: No - INTEGUMENTARY Hx Dermatological Problems: No - MUSCULOSKELETAL/RHEUMATOLOGICAL Hx Falls: No - GASTROINTESTINAL Hx Gastrointestinal Disorders: Yes Hx Nausea: Yes - GENITOURINARY/GYNECOLOGICAL Hx Genitourinary Disorders: No - PSYCHIATRIC Hx Substance Use: No - SURGICAL HISTORY Hx Surgeries: Yes Hx Amputation: Yes (left bka with prosthesis) Hx Angiogram: Yes Hx Herniorrhaphy: Yes Hx Vascular Access Device: Yes Other/Comment: Left BK amputation - ANESTHESIA Hx Anesthesia: Yes Hx Anesthesia Reactions: No Hx Malignant Hyperthermia: No Meds Allergies/Adverse Reactions: Allergies Allergy/AdvReac Type Severity Reaction Status Date / Time No Known Allergies Allergy Verified 03/14/18 15:33 - Medications Medications: Current Medications Sodium Chloride (Sodium Chloride 0.9%) 1,000 mls @ 100 mls/hr IV .Q10H MATTHEW Last Admin: 03/14/18 16:32 Dose: 100 mls/hr Results - Vital Signs Recent Vital Signs: Last Vital Signs Temp 98.5 F 03/14/18 15:34 Pulse 85 03/14/18 15:34 Resp 18 03/14/18 15:34 BP 199/77 H 03/14/18 15:34 Pulse Ox 99 03/14/18 16:19 - Labs Result Diagrams: 03/14/18 16:25 03/14/18 16:25 Labs: Laboratory Results - last 24 hr 03/14/18 03/14/18 03/14/18 15:41 16:25 16:25 WBC 5.2 RBC 3.55 L Hgb 11.8 L Hct 35.0 MCV 98.7 H MCH 33.2 H MCHC 33.7 RDW 15.4 H Plt Count 149 MPV 8.8 Neut % (Auto) 72.8 Lymph % (Auto) 13.1 L [place] % (Auto) 9.9 Eos % (Auto) 3.8 Baso % (Auto) 0.4 Neut # (Auto) 3.8 Lymph # (Auto) 0.7 L [place] # (Auto) 0.5 Eos # (Auto) 0.2 Baso # (Auto) 0.0 PT 12.1 INR 1.1 APTT 34 Sodium Potassium Chloride Carbon Dioxide Anion Gap BUN Creatinine Est GFR ( Amer) Est GFR (Non-Af Amer) POC Glucose (mg/dL) 221 H Random Glucose Hemoglobin A1c Calcium Total Bilirubin AST ALT Alkaline Phosphatase Troponin I Total Protein Albumin Globulin Albumin/Globulin Ratio Triglycerides Cholesterol LDL Cholesterol Direct HDL Cholesterol Blood Type Antibody Screen 03/14/18 03/14/18 03/14/18 16:25 16:25 16:25 WBC RBC Hgb Hct MCV MCH MCHC RDW Plt Count MPV Neut % (Auto) Lymph % (Auto) [place] % (Auto) Eos % (Auto) Baso % (Auto) Neut # (Auto) Lymph # (Auto) [place] # (Auto) Eos # (Auto) Baso # (Auto) PT INR APTT Sodium 140 Potassium 3.8 Chloride 97 L Carbon Dioxide 27 Anion Gap 21 H BUN 40 H Creatinine 5.0 H Est GFR ( Amer) 14 Est GFR (Non-Af Amer) 12 POC Glucose (mg/dL) Random Glucose 246 H Hemoglobin A1c 6.7 H Calcium 8.6 Total Bilirubin 0.8 AST 25 ALT 19 L Alkaline Phosphatase 123 Troponin I 0.0500 Total Protein 7.9 Albumin 3.8 Globulin 4.1 H Albumin/Globulin Ratio 0.9 L Triglycerides 97 Cholesterol 134 LDL Cholesterol Direct 75 HDL Cholesterol 29 L Blood Type B POSITIVE Antibody Screen Negative
--- NOTE | 2018-03-14 21:19 | CP.PCM.CON ---
History of Present Illness - History of Present Illness History of Present Illness: pt is seen and examined, full consult is dictated #[id number] Past Patient History - Infectious Disease Hx of Infectious Diseases: None - Past Medical History & Family History Past Medical History?: Yes - Past Social History Smoking Status: Light Smoker < 10 Cigarettes Daily - CARDIAC Hx Hypercholesterolemia: Yes Hx Hypertension: Yes Hx Pacemaker: Yes (12/17) - PULMONARY Other/Comment: light smoker - NEUROLOGICAL Hx Alzheimer's Disease: No - HEENT Hx HEENT Problems: Yes Other/Comment: left eye vision problems - RENAL Hx Chronic Kidney Disease: Yes - ENDOCRINE/METABOLIC Hx Diabetes Mellitus Type 2: Yes - HEMATOLOGICAL/ONCOLOGICAL Hx Blood Disorders: No - INTEGUMENTARY Hx Dermatological Problems: No - MUSCULOSKELETAL/RHEUMATOLOGICAL Hx Falls: No - GASTROINTESTINAL Hx Gastrointestinal Disorders: Yes Hx Nausea: Yes - GENITOURINARY/GYNECOLOGICAL Hx Genitourinary Disorders: No - PSYCHIATRIC Hx Substance Use: No - SURGICAL HISTORY Hx Surgeries: Yes Hx Amputation: Yes (left bka with prosthesis) Hx Angiogram: Yes Hx Herniorrhaphy: Yes Hx Vascular Access Device: Yes Other/Comment: Left BK amputation - ANESTHESIA Hx Anesthesia: Yes Hx Anesthesia Reactions: No Hx Malignant Hyperthermia: No Meds Allergies/Adverse Reactions: Allergies Allergy/AdvReac Type Severity Reaction Status Date / Time No Known Allergies Allergy Verified 03/14/18 15:33 - Medications Medications: Current Medications Sodium Chloride (Sodium Chloride 0.9%) 1,000 mls @ 100 mls/hr IV .Q10H MATTHEW Last Admin: 03/14/18 16:32 Dose: 100 mls/hr Results - Vital Signs Recent Vital Signs: Last Vital Signs Temp 97.6 F 03/14/18 18:19 Pulse 71 03/14/18 20:53 Resp 16 03/14/18 20:53 BP 180/86 H 03/14/18 20:53 Pulse Ox 100 03/14/18 20:53 - Labs Result Diagrams: 03/14/18 16:25 03/14/18 16:25 Labs: Laboratory Results - last 24 hr 03/14/18 03/14/18 03/14/18 15:41 16:25 16:25 WBC 5.2 RBC 3.55 L Hgb 11.8 L Hct 35.0 MCV 98.7 H MCH 33.2 H MCHC 33.7 RDW 15.4 H Plt Count 149 MPV 8.8 Neut % (Auto) 72.8 Lymph % (Auto) 13.1 L [place] % (Auto) 9.9 Eos % (Auto) 3.8 Baso % (Auto) 0.4 Neut # (Auto) 3.8 Lymph # (Auto) 0.7 L [place] # (Auto) 0.5 Eos # (Auto) 0.2 Baso # (Auto) 0.0 PT 12.1 INR 1.1 APTT 34 Sodium Potassium Chloride Carbon Dioxide Anion Gap BUN Creatinine Est GFR ( Amer) Est GFR (Non-Af Amer) POC Glucose (mg/dL) 221 H Random Glucose Hemoglobin A1c Calcium Total Bilirubin AST ALT Alkaline Phosphatase Troponin I Total Protein Albumin Globulin Albumin/Globulin Ratio Triglycerides Cholesterol LDL Cholesterol Direct HDL Cholesterol Blood Type Antibody Screen 03/14/18 03/14/18 03/14/18 16:25 16:25 16:25 WBC RBC Hgb Hct MCV MCH MCHC RDW Plt Count MPV Neut % (Auto) Lymph % (Auto) [place] % (Auto) Eos % (Auto) Baso % (Auto) Neut # (Auto) Lymph # (Auto) [place] # (Auto) Eos # (Auto) Baso # (Auto) PT INR APTT Sodium 140 Potassium 3.8 Chloride 97 L Carbon Dioxide 27 Anion Gap 21 H BUN 40 H Creatinine 5.0 H Est GFR ( Amer) 14 Est GFR (Non-Af Amer) 12 POC Glucose (mg/dL) Random Glucose 246 H Hemoglobin A1c 6.7 H Calcium 8.6 Total Bilirubin 0.8 AST 25 ALT 19 L Alkaline Phosphatase 123 Troponin I 0.0500 Total Protein 7.9 Albumin 3.8 Globulin 4.1 H Albumin/Globulin Ratio 0.9 L Triglycerides 97 Cholesterol 134 LDL Cholesterol Direct 75 HDL Cholesterol 29 L Blood Type B POSITIVE Antibody Screen Negative 03/14/18 18:14 WBC RBC Hgb Hct MCV MCH MCHC RDW Plt Count MPV Neut % (Auto) Lymph % (Auto) [place] % (Auto) Eos % (Auto) Baso % (Auto) Neut # (Auto) Lymph # (Auto) [place] # (Auto) Eos # (Auto) Baso # (Auto) PT INR APTT Sodium Potassium Chloride Carbon Dioxide Anion Gap BUN Creatinine Est GFR ( Amer) Est GFR (Non-Af Amer) POC Glucose (mg/dL) 172 H Random Glucose Hemoglobin A1c Calcium Total Bilirubin AST ALT Alkaline Phosphatase Troponin I Total Protein Albumin Globulin Albumin/Globulin Ratio Triglycerides Cholesterol LDL Cholesterol Direct HDL Cholesterol Blood Type Antibody Screen
--- NOTE | 2018-03-15 | CP.PCM.HP ---
History of Present Illness - History of Present Illness History of Present Illness: History of Present Illness: 59 yr old male who has pmh htn, of ESRD on HD, who had right sided facial droop, right arm weakness, that is now resolved. He is not a TPA candidate, and upon exam he has a normal neurological exam. no n/v/perez/dizziness/sob/chest pain/ abdomen pain/pain with urination. He denies headache, weakness, or prior spells at this time, but is quite lethargic. PMH/PSH: as above, with left leg aka. FH/SH: as per chart All: nkda On exam: AAox3. Cn 2-12 normal. No facial asymmetry. Speech mildly dysarthric but fluent. Right arm mild pronator drift. right leg 5/5 left arm 5/5,. sensory: decreased ft, pin on right arm. Gait not tested. +2 dtr ul and ll bl. Toes dowgoing. No clonus. Present on Admission - Present on Admission Any Indicators Present on Admission: No Past Patient History - Infectious Disease Hx of Infectious Diseases: None - Past Medical History & Family History Past Medical History?: Yes - Past Social History Smoking Status: Light Smoker < 10 Cigarettes Daily - CARDIAC Hx Hypercholesterolemia: Yes Hx Hypertension: Yes Hx Pacemaker: Yes (12/17) - PULMONARY Other/Comment: light smoker - NEUROLOGICAL Hx Alzheimer's Disease: No - HEENT Hx HEENT Problems: Yes Other/Comment: left eye vision problems - RENAL Hx Chronic Kidney Disease: Yes - ENDOCRINE/METABOLIC Hx Diabetes Mellitus Type 2: Yes - HEMATOLOGICAL/ONCOLOGICAL Hx Blood Disorders: No - INTEGUMENTARY Hx Dermatological Problems: No - MUSCULOSKELETAL/RHEUMATOLOGICAL Hx Falls: No - GASTROINTESTINAL Hx Gastrointestinal Disorders: Yes Hx Nausea: Yes - GENITOURINARY/GYNECOLOGICAL Hx Genitourinary Disorders: No - PSYCHIATRIC Hx Substance Use: No - SURGICAL HISTORY Hx Surgeries: Yes Hx Amputation: Yes (left bka with prosthesis) Hx Angiogram: Yes Hx Herniorrhaphy: Yes Hx Vascular Access Device: Yes Other/Comment: Left BK amputation - ANESTHESIA Hx Anesthesia: Yes Hx Anesthesia Reactions: No Hx Malignant Hyperthermia: No Meds Allergies/Adverse Reactions: Allergies Allergy/AdvReac Type Severity Reaction Status Date / Time No Known Allergies Allergy Verified 03/14/18 15:33 Results - Vital Signs Recent Vital Signs: Last Vital Signs Temp 98.1 F 03/14/18 22:18 Pulse 78 03/14/18 22:18 Resp 20 03/14/18 22:18 BP 190/92 H 03/14/18 22:18 Pulse Ox 96 03/14/18 22:18 - Labs Result Diagrams: 03/18/18 06:28 03/18/18 06:28 Labs: Laboratory Results - last 24 hr 03/14/18 03/14/18 03/14/18 15:41 16:25 16:25 WBC 5.2 RBC 3.55 L Hgb 11.8 L Hct 35.0 MCV 98.7 H MCH 33.2 H MCHC 33.7 RDW 15.4 H Plt Count 149 MPV 8.8 Neut % (Auto) 72.8 Lymph % (Auto) 13.1 L [place] % (Auto) 9.9 Eos % (Auto) 3.8 Baso % (Auto) 0.4 Neut # (Auto) 3.8 Lymph # (Auto) 0.7 L [place] # (Auto) 0.5 Eos # (Auto) 0.2 Baso # (Auto) 0.0 PT 12.1 INR 1.1 APTT 34 Sodium Potassium Chloride Carbon Dioxide Anion Gap BUN Creatinine Est GFR ( Amer) Est GFR (Non-Af Amer) POC Glucose (mg/dL) 221 H Random Glucose Hemoglobin A1c Calcium Total Bilirubin AST ALT Alkaline Phosphatase Troponin I Total Protein Albumin Globulin Albumin/Globulin Ratio Triglycerides Cholesterol LDL Cholesterol Direct HDL Cholesterol Blood Type Antibody Screen 03/14/18 03/14/18 03/14/18 16:25 16:25 16:25 WBC RBC Hgb Hct MCV MCH MCHC RDW Plt Count MPV Neut % (Auto) Lymph % (Auto) [place] % (Auto) Eos % (Auto) Baso % (Auto) Neut # (Auto) Lymph # (Auto) [place] # (Auto) Eos # (Auto) Baso # (Auto) PT INR APTT Sodium 140 Potassium 3.8 Chloride 97 L Carbon Dioxide 27 Anion Gap 21 H BUN 40 H Creatinine 5.0 H Est GFR ( Amer) 14 Est GFR (Non-Af Amer) 12 POC Glucose (mg/dL) Random Glucose 246 H Hemoglobin A1c 6.7 H Calcium 8.6 Total Bilirubin 0.8 AST 25 ALT 19 L Alkaline Phosphatase 123 Troponin I 0.0500 Total Protein 7.9 Albumin 3.8 Globulin 4.1 H Albumin/Globulin Ratio 0.9 L Triglycerides 97 Cholesterol 134 LDL Cholesterol Direct 75 HDL Cholesterol 29 L Blood Type B POSITIVE Antibody Screen Negative 03/14/18 18:14 WBC RBC Hgb Hct MCV MCH MCHC RDW Plt Count MPV Neut % (Auto) Lymph % (Auto) [place] % (Auto) Eos % (Auto) Baso % (Auto) Neut # (Auto) Lymph # (Auto) [place] # (Auto) Eos # (Auto) Baso # (Auto) PT INR APTT Sodium Potassium Chloride Carbon Dioxide Anion Gap BUN Creatinine Est GFR ( Amer) Est GFR (Non-Af Amer) POC Glucose (mg/dL) 172 H Random Glucose Hemoglobin A1c Calcium Total Bilirubin AST ALT Alkaline Phosphatase Troponin I Total Protein Albumin Globulin Albumin/Globulin Ratio Triglycerides Cholesterol LDL Cholesterol Direct HDL Cholesterol Blood Type Antibody Screen
[2018-03-15] MEDS: (Novolin R) Insulin Human Regular 100 units/ml vial SC SCH ×4 (08:30→22:16)
--- NOTE | 2018-03-15 09:06 | CP.PCM.PN ---
Subjective - Date & Time of Evaluation Date of Evaluation: 03/15/18 Time of Evaluation: 09:04 - Subjective Subjective: Mr. Richards was seen and examined at the bedside. He is alert, oriented in all spheres. He denies any headache, dizziness, lightheadedness, nausea, or vomiting. He is able to follow simple commands. He has mildl dysarthric but fluent and Right arm mild pronator drift.There was no untoward events overnight. Objective - Vital Signs/Intake and Output Vital Signs (last 24 hours): Temp Pulse Resp BP Pulse Ox 97.7 F 79 20 175/92 H 100 03/15/18 08:28 03/15/18 08:28 03/15/18 08:28 03/15/18 08:28 03/15/18 08:28 Intake and Output: 03/15/18 03/15/18 06:59 18:59 Intake Total 110 Output Total 0 Balance 110 - Medications Medications: Current Medications Aspirin (Aspirin) 325 mg PO DAILY [facility] Calcitriol (Rocaltrol) 0.25 mcg PO DAILY [facility] Diphenhydramine HCl (Benadryl) 25 mg PO DAILY [facility] Famotidine (Pepcid) 20 mg PO DAILY [facility] Ferrous Sulfate (Feosol) 325 mg PO DAILY [facility] Finasteride (Proscar) 5 mg PO DAILY [facility] Heparin Sodium (Porcine) (Heparin) 5,000 units SC Q8 [facility] Last Admin: 03/15/18 05:09 Dose: 5,000 units Hydralazine HCl (Apresoline) 100 mg PO Q8 [facility] Last Admin: 03/15/18 05:09 Dose: 100 mg Insulin Human Regular (Novolin R) 0 unit SC ACHS [facility] PRN Reason: Protocol Rosuvastatin Calcium (Crestor) 5 mg PO DAILY [facility] Sevelamer Carbonate (Renvela) 2.4 gm PO DAILY [facility] - Labs Labs: 03/14/18 16:25 03/14/18 16:25 PT 12.1 SECONDS (9.7-12.2) 03/14/18 16:25 INR 1.1 03/14/18 16:25 APTT 34 SECONDS (21-34) 03/14/18 16:25 - Constitutional Appears: No Acute Distress - Head Exam Head Exam: NORMAL INSPECTION - Neurological Exam Neurological Exam: Alert, Awake, Oriented x3 Neuro motor strength exam: Left Upper Extremity: 5, Right Upper Extremity: 4, Left Lower Extremity: 5 (left BKA), Right Lower Extremity: 5 Additional comments: Speech mildly dysarthric but fluent with Right arm mild pronator drift. Sensation is intact. Assessment and Plan (1) TIA (transient ischemic attack) Assessment & Plan: Case discussed with Dr. Burk, continue all current medical, physical, occupational, and speech regimens. Pending echocardiogram Status: Acute
[2018-03-15] MEDS: Sevelamer Carb 2.4 gm/Packet PO SCH (09:36)
[2018-03-15] MEDS ORDERED: POLYETHYLENE GLYCOL 3350 17 GM/Dose PACKET PO SCH (10:00)
--- NOTE | 2018-03-15 10:35 | CON ---
DATE: 03/14/2018 The patient is located on room 650, bed B. Requested by Dr. Emilio Israel. REASON FOR FOLLOWUP: End-stage renal disease, tremors and aphasia. SUBJECTIVE: Mr. Richards is a 72-year-old very pleasant elderly male with a past medical history significant for longstanding hypertension, diabetes, end-stage renal disease, status post cardiac arrest about a year ago, status post pacemaker placement and also status post left BKA and C. difficile colitis who was admitted on multiple occasions in the last two months to hospital. Now, the patient was sent from the dialysis unit this afternoon with a chief complaint of sudden onset of a aphasia and shaking. Denies any fever or chills. As per the patient, he had a dialysis this afternoon and had ultrafiltration of about 3.4 liters. Denies any chest pain, palpitation. Denies any nausea or vomiting. Denies any fever or cough. Denies any loss of consciousness. Denies any tongue bite. Denies any frothing or bowel or bladder incontinence. PAST MEDICAL HISTORY: Significant for longstanding hypertension; diabetes; end-stage renal disease, on hemodialysis three times a week, Tuesday, , Tuesday; status post C. difficile and also status post diverticulitis. PAST SURGICAL HISTORY: Status post left upper extremity AV fistula and also status post pacemaker placement and status post left BKA. ALLERGIES: NO KNOWN DRUG ALLERGIES. SOCIAL HISTORY: The patient was an ex-smoker. Denies any alcohol abuse. Denies any drug abuse. PERSONAL HISTORY: . His about a year ago. The patient has a very supportive family, his sons. REVIEW OF SYSTEMS: Significant for sudden onset of a aphasia and tremors post dialysis. All other review of systems are reviewed and are negative. MEDICATIONS: Include as follows: Home medications: Benadryl 25 mg p.o. daily, Tylenol, Crestor 5 mg daily, Proscar 5 mg daily, Keflex 500 mg p.o. daily, Flagyl 500 mg p.o. daily, Renvela p.o. daily, Colace 100 mg p.o. daily, B complex vitamin one tablet daily, Feosol 325 mg p.o. daily, Pepcid 20 mg daily, clonidine 0.1 mg p.o. daily, Proscar 5 mg daily, aspirin 81 mg daily, hydralazine 100 mg p.o. every eight hours, metoprolol 50 mg p.o. daily. PHYSICAL EXAMINATION: VITAL SIGNS: Blood pressure this afternoon 180/86, pulse 71, respirations 16, temperature 98.1, saturation 96%. Height 6 feet 1 inch, weight is 180 pounds. GENERAL: Mr. Richards is a 72-year-old elderly male, moderately built, moderately nourished, not in acute distress. HEENT: Pupils normal and reactive to light and accommodation. Conjunctivae pink. Sclerae anicteric. Tongue is moist and trachea is midline. LUNGS: Symmetric on both sides. Bilateral breath sounds present. Clear to auscultation. CVS: [place] at the fifth intercostal space, midclavicular line. S1 and S2 audible. No murmur or gallop. ABDOMEN: Normal in appearance, soft, tympanic. No guarding. No hepatosplenomegaly. GLASS MOULD CLEANER:. Slightly protuberant, soft, tympanic. No guarding. No hepatosplenomegaly. GLASS MOULD CLEANER: The patient is alert, awake, and oriented x3. Nonfocal neuro examination at this time. Sensory and motor systems are grossly within normal limits. EXTREMITIES: No cyanosis, no clubbing, no edema on the right leg. He is status post left BKA. LABORATORY DATA: Include as follows: As of 03/14/2018: WBC 5.2, hemoglobin 11.8, hematocrit is 35, platelets 149. PT 12.1, PTT 34. Sodium 140, potassium 3.8, chloride 97, CO2 is 27, BUN 40, creatinine 5, glucose 172, calcium 8.6, hemoglobin A1c 6.7. Total bili 0.8, AST 25, ALT 19, alkaline phos of 124. Troponin 0.05, total protein 7.9, albumin is 3.8. Chest x-ray as of 03/14/2018: Resolution of prior CHF. No acute infiltrate or pleural effusion identified. Cardiomegaly stable with a pacemaker. AICD again identified and placed. CT of the head as of 03/14/2018 at 1548 hours: Impression: No acute intracranial hemorrhage, mild chronic white matter ischemic changes, suspect he has an indeterminate left inferior basal ganglia ischemic changes and questionable artifact versus tiny bilateral basal infarct, moderate generalized volume loss. CT of the head and neck CTA: Impression: Partially calcified atherosclerotic plaque changes seen along both carotid bifurcations, right greater than the left, as well as the cavernous carotid arteries and vertebral arteries. No evidence of occlusion or significant stenosis. In summary, Mr. Richards is a 72-year-old elderly male with a history of longstanding hypertension, diabetes, end-stage renal disease, status post diverticulitis, and status post pacemaker placement, status post BKA, was admitted with a shaking tremors and also aphasia after dialysis. 1. End-stage renal disease. Continue hemodialysis three times a week, Tuesday, , Tuesday. 2. Aphasia and tremors, etiology is not clear, rule out TIA, rule out secondary to hemodynamic changes post dialysis. It was not notified from the dialysis unit regarding any complications during the dialysis today. We will review dialysis flow sheet from the outpatient hemodialysis unit. 3. Hypertension. 4. Diabetes. Continue his antihypertensive medication. Continue Renvela. Follow up with Neurology for further recommendation. If the patient stays in the hospital, we will schedule for hemodialysis on . Thank you for allowing me to participate in your patient's care. Blanca Thakkar MD
--- NOTE | 2018-03-15 15:30 | VASCLAB ---
PROCEDURE: HISTORY: Code stroke COMPARISON: None available. TECHNIQUE: Grayscale and duplex Doppler evaluation of the cervical carotid and vertebral arteries were performed. The common carotid, carotid bifurcations and cervical Internal Carotid Artery (ICA) and proximal External Carotid Artery (ECA) were evaluated. The vertebral arteries were evaluated for gross patency and flow direction. Report prepared by Larry Graff, BS, RVT FINDINGS: RIGHT CAROTID ARTERIES: 1. Common Carotid Artery: No significant focal plaque formation of the right common carotid artery. Maximum Peak Systolic velocity: 68 cm/sec: End-diastolic velocity 0 cm/sec. 2. Carotid Bifurcation: Calcific plaque formation. Maximum Peak Systolic velocity: 52 cm/sec: End-diastolic velocity 0 cm/sec. 3. Internal Carotid Artery: Plaque description: 3.1. Proximal Segment: Peak systolic velocity 73 cm/sec: End-diastolic velocity 8 cm/sec - % stenosis 0-15% 3.2. Middle Segment: Peak systolic velocity 80 cm/sec: End-diastolic velocity 10 cm/sec - % stenosis 0-15% 3.3. Distal Segment: Peak systolic velocity 66 cm/sec: End-diastolic velocity 8 cm/sec - % stenosis 0-15% 4. External Carotid Artery: No significant focal plaque formation. Peak systolic velocity 69 cm/sec 5. ICA/CCA Ratio: 1.2 LEFT CAROTID ARTERIES: 1. Common Carotid Artery: No significant focal plaque formation of the left common carotid artery. Maximum Peak Systolic velocity: 72 cm/sec: End-diastolic velocity 0 cm/sec. 2. Carotid Bifurcation: plaque formation. Maximum Peak Systolic velocity: 74 cm/sec: End-diastolic velocity 0 cm/sec. 3. Internal Carotid Artery: Plaque description: 3.1. Proximal Segment: Peak systolic velocity 66 cm/sec: End-diastolic velocity 8 cm/sec - % stenosis 0-15% 3.2. Middle Segment: Peak systolic velocity 70 cm/sec: End-diastolic velocity 10 cm/sec - % stenosis 0-15% 3.3. Distal Segment: Peak systolic velocity 55 cm/sec: End-diastolic velocity 9 cm/sec - % stenosis 0-15% 4. External Carotid Artery: No significant focal plaque formation. Peak systolic velocity 79 cm/sec 5. ICA/CCA Ratio: 1.0 VERTEBRAL ARTERIES: 1. Right Vertebral Artery: The right vertebral artery flow direction is antegrade. 2. Left Vertebral Artery: The left vertebral artery flow direction is antegrade. OTHER FINDINGS: 1. Right Brachial Blood pressure: 160 mmHg. 2. Left Brachial Blood pressure: AV fistula mmHg. IMPRESSION: RIGHT: Duplex scan does not suggest hemodynamically significant stenosis of the right extracranial carotid arteries. LEFT: Duplex scan does not suggest hemodynamically significant stenosis of the left extracranial carotid arteries.
--- NOTE | 2018-03-15 15:56 | CP.PCM.PN ---
Subjective - Date & Time of Evaluation Date of Evaluation: 03/15/18 Time of Evaluation: 15:55 - Subjective Subjective: pt is seen and examined, follow up consult is dictated #[id number] for hd in am Objective - Vital Signs/Intake and Output Vital Signs (last 24 hours): Temp Pulse Resp BP Pulse Ox 97.7 F 70 20 152/81 H 100 03/15/18 08:28 03/15/18 11:44 03/15/18 08:28 03/15/18 09:21 03/15/18 08:28 Intake and Output: 03/15/18 03/15/18 06:59 18:59 Intake Total 110 Output Total 0 Balance 110 - Medications Medications: Current Medications Aspirin (Aspirin) 325 mg PO DAILY [facility] Last Admin: 03/15/18 09:17 Dose: 325 mg Calcitriol (Rocaltrol) 0.25 mcg PO DAILY [facility] Last Admin: 03/15/18 09:16 Dose: 0.25 mcg Diphenhydramine HCl (Benadryl) 25 mg PO DAILY [facility] Last Admin: 03/15/18 09:16 Dose: 25 mg Famotidine (Pepcid) 20 mg PO DAILY [facility] Last Admin: 03/15/18 09:16 Dose: 20 mg Ferrous Sulfate (Feosol) 325 mg PO DAILY [facility] Last Admin: 03/15/18 09:16 Dose: 325 mg Finasteride (Proscar) 5 mg PO DAILY [facility] Last Admin: 03/15/18 09:16 Dose: 5 mg Heparin Sodium (Porcine) (Heparin) 5,000 units SC Q8 [facility] Last Admin: 03/15/18 13:36 Dose: 5,000 units Hydralazine HCl (Apresoline) 100 mg PO Q8 [facility] Last Admin: 03/15/18 13:35 Dose: 100 mg Insulin Human Regular (Novolin R) 0 unit SC ACHS [facility] PRN Reason: Protocol Last Admin: 03/15/18 13:05 Dose: Not Given Rosuvastatin Calcium (Crestor) 5 mg PO DAILY [facility] Last Admin: 03/15/18 09:19 Dose: Not Given Sevelamer Carbonate (Renvela) 2.4 gm PO DAILY [facility] Last Admin: 03/15/18 09:36 Dose: 2.4 gm - Labs Labs: 03/14/18 16:25 05/15/18 16:25 PT 12.1 SECONDS (9.7-12.2) 03/14/18 16:25 INR 1.1 03/14/18 16:25 APTT 34 SECONDS (21-34) 03/14/18 16:25
[2018-03-16] MEDS ORDERED: Labetalol 25mg/5ml Syringe IVP STA (00:30)
--- NOTE | 2018-03-16 02:44 | PN ---
DATE: 03/15/2018 LOCATION: The patient is located in room 650, bed B. REQUESTED BY: Emilio Israel MD REASON FOR FOLLOWUP: End-stage renal disease, aphasia, tremors, and for continuation of the hemodialysis. HISTORY OF PRESENT ILLNESS: Mr. Richards is a 72-year-old elderly male with a past medical history significant for longstanding hypertension, diabetes, status post cardiac arrest about a year ago, status post pacemaker placement, status post left BKA, diverticulitis, history of CAD in the past who was admitted with chief complaints of aphasic and also tremors post dialysis, and the patient was sent to the emergency room for further evaluation. The patient is not in acute distress, and denies any headache, dizziness. Denies any chest pain or palpitation. Denies any fever or cough. The patient is back to his baseline after he was transferred to the emergency room yesterday. The patient is not in acute distress. PHYSICAL EXAMINATION: VITAL SIGNS: As follows, blood pressure 152/81, pulse 104, respirations about 20, temperature 97.7, saturation 100%. Height 6 feet 1 inch, weight is 195 pounds. GENERAL: Mr. Richards is a 72-year-old elderly male, well-built, well-nourished, not in acute distress. HEENT: Pupils normal and reactive to light and accommodation. Conjunctivae pink. Sclerae anicteric. Tongue is moist. Trachea is midline. LUNGS: Symmetric on both sides. Bilateral breath sounds present. Clear to auscultation. CVS: [place] at the fifth intercostal space, midclavicular line. S1, S2 audible. No murmur or gallop. ABDOMEN: Normal in appearance, soft, tympanic. No guarding. No rigidity. No hepatosplenomegaly. CORPORATE EVENTS DIRECTOR: The patient is alert, awake and oriented x3. Nonfocal neuro examination. Cranial nerves II through XII grossly intact. Sensory and motor system is within normal limits. EXTREMITIES: No cyanosis, no clubbing, no edema on the right leg. Status post left BKA. MEDICATIONS: His current medications include as follows, hydralazine 100 mg p.o. every 8 hours, aspirin 325 mg p.o. daily, Benadryl 25 mg daily, Crestor 5 mg at bedtime, Feosol 325 mg p.o. daily, subcu heparin 5000 units every 8 hours, Novolin R for sliding scale, Pepcid 20 mg p.o. daily, Proscar 5 mg daily, Renvela 2.4 gm p.o. daily, and Rocaltrol 0.25 mcg p.o. daily. LABORATORY DATA: As of 03/14/2018, WBC 5.2, hemoglobin 11.8, hematocrit is 35, platelets 149. PT 12.1, PTT 34. Sodium 140, potassium 3.8, chloride 97, CO2 of 27, BUN 40, creatinine 5, glucose 246, hemoglobin A1c 6.7, calcium 8.6. Total bili 0.8, AST 25, ALT 19, alkaline phosphatase is 123, troponin 0.05. Total protein 7.9, albumin is 3.8. Carotid Doppler as of 03/14/2018, impression, right duplex scan does not suggest a hemodynamically significant stenosis of the right extracranial carotid arteries and the left duplex scan does not suggest hemodynamically significant stenosis of the left external carotid arteries. IMPRESSION: In summary, Mr. Richards is a 72-year-old elderly male with history of hypertension, diabetes, status post pacemaker. End-stage renal disease, status post left below knee amputation who was admitted with aphasia and tremors and rule out transient ischemic attack. 2. Hypertension. Blood pressure is slightly high, continue his hydralazine. Continue metoprolol 50 mg p.o. daily and titrate as needed. 3. End-stage renal disease. Continue hemodialysis three times a week, Tuesday, , Tuesday. 4. Diabetes. Sugars under control. We will follow with you. Thank you for allowing me to participate in your patient's care. Follow up with Neurology for further management. Blanca Thakkar MD
[2018-03-16 06:39] LABS: HEMOGLOBIN 12.3 g/dL (12.0-18.0); MEAN CELL VOLUME 98.2 fL (80.0-94.0); MEAN CORPUSCULAR HEMOGLOBIN 33.1 pg (27.0-31.0); MEAN CORPUSCULAR HGB CONC 33.8 g/dL (33.0-37.0); MEAN PLATELET VOLUME 9.1 fL (7.2-11.7); RBC 3.73 Mil/uL (4.40-5.90); RED CELL DISTRIBUTION WIDTH 15.3 % (11.5-14.5); WHITE BLOOD COUNT 4.9 K/uL (4.8-10.8)
[2018-03-16] MEDS ORDERED: Metoprolol Succinate 50 mg XL Tab PO SCH (06:45)
[2018-03-16 07:18] LABS: CALCIUM 8.1 mg/dl (8.6-10.4)
--- NOTE | 2018-03-16 07:30 | PCM.RRT ---
<Kaylynn Ayala - Last Filed: 03/16/18 07:24> ROAD CLEANER Nurses Assessment - Situation Date: 03/16/[address] CLEANER was called: 04:30 RO[address] CLEANER Responder Arrival Time:: 04:33 ROAD CLEANER Location:: Med/Surg Room Number: [address] CLEANER Reason for Call: Hypertension ROAD CLEANER Called By: RN - IV IV Inserted during ROAD CLEANER?: No - Respiratory ROAD CLEANER Delivery Method: Nasal Cannula @L/min Oxygen Flow Rate: 2 Received Nebulizer Treatments: No Was the Patient Ventilated with Bag/Mask 100% O2?: No Secretions Suctioned?: No Was the Patient Intubated?: No Was the Patient Placed on a Ventilator?: No - Medication Medications Administered During ROAD CLEANER: None - Diagnostic Test Ordered EKG: No Chest X-Ray: No CT Scan: No CPR started during ROAD CLEANER?: No - Vital Signs Vital Signs: Rapid Response Vital Sign Blood Pressure 188/87 Pulse Rate 98 Respiratory Rate 20 Temperature 98.4 F Oxygen Saturation 99 - [place] Coma Scale Coma Scale Eye Opening: Spontaneous Coma Scale Motor: Obeys Commands Movement Coma Scale Verbal: Oriented Coma Scale Total: 15 - Vital Signs at end of ROAD CLEANER Vital Signs at end of ROAD CLEANER: Rapid Response End Vital Sign Blood Pressure 188/89 Pulse Rate 97 Respiratory Rate 20 Temperature 98.3 F O2 Sat by Pulse Oximetry 99 - Recommendations 5) ROAD CLEANER Level of Care Recommendations: Remain in current setting Notifications: Attending Physician - Neurological Status (Select all that apply): Alert, Responsive, Oriented, Verbal, Follows Commands - Respiratory Oxygen Delivery Method: Nasal Cannula @L/min Oxygen Flow Rate: 2 - Constitutional Appears: Non-toxic, No Acute Distress - Head Head Exam: ATRAUMATIC - Respiratory Exam Respiratory Exam: Clear to Ausculation Bilateral. absent: Rales, Rhonchi, Wheezes - Cardiovascular Exam Cardiovascular Exam: REGULAR RHYTHM, +S1, +S2 - GI/Abdominal Exam GI & Abdominal Exam: Soft, Normal Bowel Sounds. absent: Tenderness - Neurological Exam Neurological Exam: Alert, Awake, Oriented x3 - Extremities Exam Extremities Exam: absent: Pedal Edema Plan - Assessment of Findings&Treatment Plan 72 year old male with past medical hx of ESRD on HD admitted for TIA has ROAD CLEANER called for hypertension by nurse. Patient's vital signs at time of ROAD CLEANER were as follows 188/87, 98, 99% on NC, 98.4 degrees. Patient was asymptomatic and resting comfortably during ROAD CLEANER. Patient was noted to be hypertensive earlier in the night and had been given Hydralazine 10 mg IVP x 2 and labetalol 20 mg IVP once earlier in the night. As patient was asymptomatic and resting comfortably, pt was not given any medication at the time of ROAD CLEANER to control BP. Patient is also a dialysis pt due for dialysis in the am and is admitted for TIA (permissive HTN). <Patrice Brown P - Last Filed: 03/17/18 07:05> ROAD CLEANER Nurses Assessment - Vital Signs Vital Signs: Rapid Response Vital Sign Blood Pressure 188/87 Pulse Rate 98 Respiratory Rate 20 Temperature 98.4 F Oxygen Saturation 99 - Vital Signs at end of ROAD CLEANER Vital Signs at end of ROAD CLEANER: Rapid Response End Vital Sign Blood Pressure 188/89 Pulse Rate 97 Respiratory Rate 20 Temperature 98.3 F O2 Sat by Pulse Oximetry 99 Attending/Attestation - Attestation I have personally seen and examined this patient.: Yes I have fully participated in the care of the patient.: Yes I have reviewed all pertinent clinical information, including history, physical exam and plan: Yes
[2018-03-16] MEDS: (Novolin R) Insulin Human Regular 100 units/ml vial SC SCH ×4 (07:55→21:33)
--- NOTE | 2018-03-16 08:29 | CP.PCM.PN ---
Subjective - Date & Time of Evaluation Date of Evaluation: 03/15/18 Time of Evaluation: 18:00 - Subjective Subjective: Pt seen and examined today, afebrile, improving clinically, denies any chest pain, nausea, vomitting, headache, dizziness, speech is slightly dysarthric Objective - Vital Signs/Intake and Output Vital Signs (last 24 hours): Temp Pulse Resp BP Pulse Ox 98.4 F 98 H 20 189/94 H 99 03/16/18 04:33 03/16/18 04:33 03/16/18 04:33 03/16/18 06:05 03/16/18 04:33 Intake and Output: 03/16/18 03/16/18 06:59 18:59 Intake Total 440 Output Total 100 Balance 340 - Medications Medications: Current Medications Aspirin (Aspirin) 325 mg PO DAILY [facility] Last Admin: 03/15/18 09:17 Dose: 325 mg Calcitriol (Rocaltrol) 0.25 mcg PO DAILY [facility] Last Admin: 03/15/18 09:16 Dose: 0.25 mcg Diphenhydramine HCl (Benadryl) 25 mg PO DAILY [facility] Last Admin: 03/15/18 09:16 Dose: 25 mg Famotidine (Pepcid) 20 mg PO DAILY [facility] Last Admin: 03/15/18 09:16 Dose: 20 mg Ferrous Sulfate (Feosol) 325 mg PO DAILY [facility] Last Admin: 03/15/18 09:16 Dose: 325 mg Finasteride (Proscar) 5 mg PO DAILY [facility] Last Admin: 03/15/18 09:16 Dose: 5 mg Heparin Sodium (Porcine) (Heparin) 5,000 units SC Q8 [facility] Last Admin: 03/16/18 06:10 Dose: 5,000 units Hydralazine HCl (Apresoline) 100 mg PO Q8 [facility] Last Admin: 03/16/18 06:09 Dose: 100 mg Insulin Human Regular (Novolin R) 0 unit SC [facility] PRN Reason: Protocol Last Admin: 03/16/18 07:55 Dose: Not Given Metoprolol Succinate (Toprol Xl) 50 mg PO DAILY [facility] Last Admin: 03/16/18 06:51 Dose: 50 mg Rosuvastatin Calcium (Crestor) 5 mg PO [facility] Sevelamer Carbonate (Renvela) 2.4 gm PO DAILY [facility] Last Admin: 03/15/18 09:36 Dose: 2.4 gm - Labs Labs: 03/16/18 06:30 03/16/18 06:30 PT 12.1 SECONDS (9.7-12.2) 03/14/18 16:25 INR 1.1 03/14/18 16:25 APTT 34 SECONDS (21-34) 03/14/18 16:25
--- NOTE | 2018-03-16 08:45 | CP.PCM.PN ---
Subjective - Date & Time of Evaluation Date of Evaluation: 03/16/18 Time of Evaluation: 08:45 - Subjective Subjective: Mr. Richards was seen and examined at the bedside. He is alert, oriented in all spheres. He denies any headache, dizziness, lightheadedness, nausea, or vomiting. He is able to follow simple commands. He has mildl dysarthric but fluent and resolved Right arm mild pronator drift.There was no untoward events overnight. Objective - Vital Signs/Intake and Output Vital Signs (last 24 hours): Temp Pulse Resp BP Pulse Ox 97.7 F 79 20 175/92 H 100 03/16/18 08:41 03/16/18 08:41 03/16/18 08:41 03/16/18 08:41 03/16/18 08:41 Intake and Output: 03/16/18 03/16/18 06:59 18:59 Intake Total 440 Output Total 100 Balance 340 - Medications Medications: Current Medications Aspirin (Aspirin) 325 mg PO DAILY [facility] Last Admin: 03/15/18 09:17 Dose: 325 mg Calcitriol (Rocaltrol) 0.25 mcg PO DAILY [facility] Last Admin: 03/15/18 09:16 Dose: 0.25 mcg Diphenhydramine HCl (Benadryl) 25 mg PO DAILY [facility] Last Admin: 03/15/18 09:16 Dose: 25 mg Famotidine (Pepcid) 20 mg PO DAILY [facility] Last Admin: 03/15/18 09:16 Dose: 20 mg Ferrous Sulfate (Feosol) 325 mg PO DAILY [facility] Last Admin: 03/15/18 09:16 Dose: 325 mg Finasteride (Proscar) 5 mg PO DAILY [facility] Last Admin: 03/15/18 09:16 Dose: 5 mg Heparin Sodium (Porcine) (Heparin) 5,000 units SC Q8 [facility] Last Admin: 03/16/18 06:10 Dose: 5,000 units Hydralazine HCl (Apresoline) 100 mg PO Q8 [facility] Last Admin: 03/16/18 06:09 Dose: 100 mg Insulin Human Regular (Novolin R) 0 unit SC ACHS [facility] PRN Reason: Protocol Last Admin: 03/16/18 07:55 Dose: Not Given Metoprolol Succinate (Toprol Xl) 50 mg PO DAILY [facility] Last Admin: 03/16/18 06:51 Dose: 50 mg Rosuvastatin Calcium (Crestor) 5 mg PO [facility] Sevelamer Carbonate (Renvela) 2.4 gm PO DAILY [facility] Last Admin: 03/15/18 09:36 Dose: 2.4 gm - Labs Labs: 03/16/18 06:30 03/16/18 06:30 PT 12.1 SECONDS (9.7-12.2) 03/14/18 16:25 INR 1.1 03/14/18 16:25 APTT 34 SECONDS (21-34) 03/14/18 16:25 - Constitutional Appears: No Acute Distress - Head Exam Head Exam: NORMAL INSPECTION - Neurological Exam Neurological Exam: Alert, Awake, Oriented x3 Neuro motor strength exam: Left Upper Extremity: 5, Right Upper Extremity: 5, Left Lower Extremity: 4, Right Lower Extremity: 5 Additional comments: Neurological improved from previous examination no arm drift noted. Assessment and Plan (1) TIA (transient ischemic attack) Assessment & Plan: Case discussed with Dr. Burk, continue all current medical, physical, occupational, and speech regimens. Pending echocardiogram. Recommend to treat any electrolyte abnormalities, blood pressure and glycemic control. Status: Acute
[2018-03-16] MEDS: Sevelamer Carb 2.4 gm/Packet PO SCH (09:05)
--- NOTE | 2018-03-16 09:32 | CP.PCM.PN ---
Subjective - Date & Time of Evaluation Date of Evaluation: 03/16/18 Time of Evaluation: 09:32 - Subjective Subjective: pt is seen and examined, follow up consult is dictated #[id number] add norvasc, increase metoprolol, low ns diet, for hd today Objective - Vital Signs/Intake and Output Vital Signs (last 24 hours): Temp Pulse Resp BP Pulse Ox 97.7 F 92 H 20 161/72 H 100 03/16/18 08:41 03/16/18 09:29 03/16/18 08:41 03/16/18 09:29 03/16/18 08:41 Intake and Output: 03/16/18 03/16/18 06:59 18:59 Intake Total 440 Output Total 100 Balance 340 - Medications Medications: Current Medications Amlodipine Besylate (Norvasc) 5 mg PO DAILY [facility] Aspirin (Aspirin) 325 mg PO DAILY [facility] Last Admin: 03/16/18 09:04 Dose: 325 mg Calcitriol (Rocaltrol) 0.25 mcg PO DAILY [facility] Last Admin: 03/16/18 09:04 Dose: 0.25 mcg Diphenhydramine HCl (Benadryl) 25 mg PO DAILY [facility] Last Admin: 03/16/18 09:04 Dose: 25 mg Famotidine (Pepcid) 20 mg PO DAILY [facility] Last Admin: 03/16/18 09:04 Dose: 20 mg Ferrous Sulfate (Feosol) 325 mg PO DAILY [facility] Last Admin: 03/16/18 09:03 Dose: 325 mg Finasteride (Proscar) 5 mg PO DAILY [facility] Last Admin: 03/16/18 09:04 Dose: 5 mg Heparin Sodium (Porcine) (Heparin) 5,000 units SC Q8 [facility] Last Admin: 03/16/18 06:10 Dose: 5,000 units Hydralazine HCl (Apresoline) 100 mg PO Q8 [facility] Last Admin: 03/16/18 06:09 Dose: 100 mg Insulin Human Regular (Novolin R) 0 unit SC ACHS [facility] PRN Reason: Protocol Last Admin: 03/16/18 07:55 Dose: Not Given Metoprolol Succinate (Toprol Xl) 50 mg PO BID [facility] Rosuvastatin Calcium (Crestor) 5 mg PO HS [facility] Sevelamer Carbonate (Renvela) 2.4 gm PO DAILY [facility] Last Admin: 03/16/18 09:05 Dose: 2.4 gm - Labs Labs: 03/16/18 06:30 03/16/18 06:30 PT 12.1 SECONDS (9.7-12.2) 03/14/18 16:25 INR 1.1 03/14/18 16:25 APTT 34 SECONDS (21-34) 03/14/18 16:25
[2018-03-16] MEDS: Metoprolol Succinate 50 mg XL Tab PO SCH ×2 (10:12→18:28)
--- NOTE | 2018-03-16 12:00 | PN ---
DATE: 03/16/2018 LOCATION: 650, bed B. SUBJECTIVE: This is a 72-year-old male, seen and examined in rounds this morning after was seen for GI consultation initially on 03/15/[address] Israel. The patient appears to be awake, alert, and oriented with reported elevated blood pressure this morning after a rapid response was called. The entire chart is reviewed including, but not limited to, the most recent lab and radiology study results, current and previous medication list, current and previous medical events. The patient appears to be awake, alert, and oriented. Denies any chest pain. Has dizziness, however. Mild nausea with dyspepsia was reported by the patient during my physical examination. Today's lab showed normal hemoglobin and hematocrit as well as normal platelet count with CO2 content of 21 indicative of metabolic acidosis with BUN 72 and creatinine of 8.9 due to the patient's renal failure. Blood glucose level 149, calcium 8.0, phosphorous is 6, with reported normal troponin level as well as normal liver function test. PHYSICAL EXAMINATION: GENERAL: A 72-year-old male. VITAL SIGNS: Afebrile with pulse of 94, respiratory rate of 20 to 22, blood pressure of 164/70. HEENT: Showed pale, dry mucous membranes. Nonicteric sclerae. LUNGS: Few scattered crepitation. Decreased air entry at bases. HEART: Positive S1 and S2. ABDOMEN: Soft, bowel sounds are present. No mass or organomegaly. No rebound tenderness or guarding. EXTREMITIES: With mild lower extremity edematous changes. No clubbing or cyanosis. The patient is status post amputation of left ____. It has to be mentioned also that the patient had recently colonoscopy done in 12/22/2017, official report in the chart. NEUROLOGIC: No reported new neurological deficits, sensory or motor. IMPRESSION: 1. Possible transient ischemic attack. 2. Poorly controlled hypertension. 3. Known history of hyperlipidemia and end-stage renal disease, on hemodialysis. 4. Cardiac arrest, status post pacemaker insertion. 5. Peripheral vascular disease by history. 6. Mild anemia by recent history. 7. Poorly controlled diabetes mellitus. SUGGESTIONS: 1. Agree with your plan. 2. Cancer markers. 3. Proton pump inhibitors. 4. Guaiac all the stools daily x3. 5. If the patient's symptoms persist including his nausea and dyspepsia, then Zofran to be added. 6. Repeat stools for C. difficile. 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 7. Further recommendations to follow. Frank Chamorro MD
[2018-03-16] MEDS ORDERED: Nitroglycerin 2% Ointment Foilpak UD TOP STA (19:47)
--- NOTE | 2018-03-16 22:22 | CON ---
DATE: 03/15/2018 LOCATION: 650, bed B. That is from Dr. Chamorro to Dr. Cody Jhaveri. I was called for GI consultation by the admitting medical team. The patient is seen and fully examined on 03/15/[address] Cody Jhaveri. The entire chart is reviewed including but not limited to most recent lab and radiology study results, current and previous medication lists, current and the previous medical events, allergy to medication list as well as all the available current and the previous medical records. This case was discussed at length with Dr. Ross on 03/15/2018 before and immediately after my GI consultation. HISTORY OF PRESENT ILLNESS: This is a 72 years old male who was admitted to the hospital through the emergency room from dialysis unit due to reported tremor, generalized weakness and malaise, somewhat difficulty expressing himself orally, but no reported chills or fever at the time of admission and no reported chest pain or palpitation. No reported active GI bleeding, significant shortness of breath. PAST MEDICAL HISTORY: Including mainly but not limited to; 1. End-stage renal disease on hemodialysis. 2. Hypertension. 3. Hyperlipidemia. 4. Cardiac arrhythmia status post pacemaker insertion. 5. Peptic ulcer disease. 6. Recent upper and lower endoscopy as reported on December 2017, please see procedure report. FAMILY HISTORY: Unknown. SOCIAL HISTORY: Positive for cigarette smoking with previous alcohol intake more than occasionally. ALLERGIES: ALLERGY TO MEDICATION LIST WAS REVIEWED. CURRENT MEDICATION: Medication list post admission was reviewed. LABORATORY DATA: Initial blood workup at the time of admission showed low hemoglobin of 11.8, blood glucose level 246, BUN 40, creatinine 5. PHYSICAL EXAMINATION: GENERAL: A 72 years old male appears to be alert on my physical examination, awake, alert and oriented. VITAL SIGNS: Afebrile with pulse of 74, respiratory rate 14-16 with blood pressure of 142/74. HEENT: Showed mildly pale dry oral mucous membranes. Nonicteric sclerae. LYMPH NODES: No lymphadenitis or lymphadenopathy. LUNGS: Few scattered bilateral crepitation with decreased air entry at bases. HEART: Positive S1 and S2. ABDOMEN: Soft with mild generalized tenderness. No mass or organomegaly. No rebound tenderness or guarding, with mild distention, the patient experienced some nausea during my physical examination. NEUROLOGIC: No reported new neurological deficits, sensory or motor. No reported new focal deficits. Peripheral pulses are present bilaterally but weak. It has to be mentioned that there is subsequent drop of hemoglobin and hematocrit and the patient was fine before. IMPRESSION: 1. Reexacerbation of peptic ulcer disease. 2. Questionable early stage transient ischemic attack, resolved. 3. Multiple past medical history as mentioned above. 4. Known history but not limited to diverticulosis, left-sided colitis by history. SUGGESTIONS: 1. Agree with your plan. 2. Guaiac all the stool daily x3. 3. Repeat cancer markers. 4. Sectional abdominal and pelvic scan if there is subsequent and further drop of hemoglobin and hematocrit. 5. Proton pump inhibitors IV. 6. Further recommendation to follow. Thank you for letting me participate in your patient's case management. Frank Chamorro MD
--- NOTE | 2018-03-17 03:07 | PN ---
DATE: 03/16/2018 FOLLOWUP RENAL CONSULTATION LOCATION: Room 650, bed B. REQUESTED BY: Dr. Emilio Israel. REASON FOR FOLLOWUP: End-stage renal disease, continuation with hemodialysis status post aphasia and tremors post dialysis on admission. HISTORY OF PRESENT ILLNESS: Mr. Richards is 72 years old elderly male with a past medical history significant for longstanding hypertension, diabetes, end-stage renal disease, status post left BKA and status post pacemaker placement about a year ago who was admitted from the dialysis unit after complaining of a aphasia and tremors noticed post dialysis by the radiation nurse in the dialysis center and referred to the ER for further evaluation. The patient is not in acute distress. Patient was seen in physical therapy today. No chest pain, no palpitation, no fever, no cough. No abdominal pain. No nausea, vomiting, diarrhea. 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 PHYSICAL EXAMINATION: VITAL SIGNS: Blood pressure this morning is 161/72, pulse 92, respirations 20, temperature 97.7, saturation 100% on 2 liters nasal cannula. Height 6 feet 1 inch, weight is 190 pounds. GENERAL: Mr. Richards is a 72 years old elderly male, very pleasant, moderately built, moderate nourished, not in acute distress. HEENT: Pupils normal, react to light and accommodation. Conjunctivae pink. Sclerae anicteric. Tongue is moist. Trachea is midline. LUNGS: Symmetric on both sides. Bilateral breath sounds present. Clear to auscultation. CVS: Baker at the fifth intercostal space, midclavicular line. S1 and S2 audible. No murmur or gallop. ABDOMEN: Normal in appearance, soft, tympanic. No guarding, no rigidity. No hepatosplenomegaly. 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 Nonfocal neuro examination. Cranial nerves II through XII grossly intact. Sensory and motor system is within normal limits. EXTREMITIES: No cyanosis, no clubbing, no edema on the right leg status post left BKA. CURRENT MEDICATIONS: Hydralazine 100 mg p.o. every 8 hours, aspirin 325 mg p.o. daily, Benadryl 25 mg p.o. daily, Crestor 5 mg at bedtime, Feosol 325 mg p.o. daily, subcu heparin 5000 units every 8 hours, amlodipine 5 mg p.o. daily, Novolin R for sliding scale, Pepcid 20 mg p.o. daily, Proscar 5 mg p.o. daily, Renvela 2.4 gm p.o. daily, Rocaltrol 0.25 mcg p.o. daily and metoprolol 50 mg p.o. daily. LABORATORY DATA: As of 03/16/2018; WBC 4.9, hemoglobin 12.3, hematocrit is 36.6, platelets 137. Sodium 140, potassium 4.4, chloride 97, CO2 21, BUN 72, creatinine 8.9, glucose 127, calcium 8.1, phosphorus 6. Accu-Cheks 218 and 149. Carotid Doppler negative for any significant stenosis. ASSESSMENT: In summary, Mr. Richards is a 72 years old elderly male with a history of hypertension, diabetes, end-stage renal disease, status post pacemaker, status post left below knee amputation was admitted with aphasia and tremors post dialysis and uncontrolled hypertension. 1. End-stage renal disease. Continue hemodialysis three times a week Tuesday, , Tuesday. We will try to ultrafiltrate as much as the patient can tolerate 2.5 to 3 liters. 2. Uncontrolled hypertension. PLAN: Continue hydralazine 100 mg p.o. every 8 hours. Continue metoprolol 50 mg and will increase to 50 mg every 12 hours and also will add Norvasc 5 mg p.o. daily and titrate as needed. We will try to keep the blood pressure between 130 and 140 at this time. Continue physical therapy and advised low-sodium, low potassium diet. We will follow with you. Thank you for allowing me to participate in your patient's care. Blanca Thakkar MD
--- NOTE | 2018-03-17 05:33 | CP.PCM.PN ---
Subjective - Date & Time of Evaluation Date of Evaluation: 03/16/18 Time of Evaluation: 19:00 - Subjective Subjective: Pt seen and examined at the bedside. He is alert, oriented in all spheres. He denies any headache, dizziness, lightheadedness, nausea, or vomiting. He is able to follow simple commands. He has mildl dysarthric but fluent and resolved Right arm mild pronator drift.There was no untoward events overnight. Objective - Vital Signs/Intake and Output Vital Signs (last 24 hours): Temp Pulse Resp BP Pulse Ox 98.3 F 86 20 186/92 H 98 03/16/18 23:05 03/17/18 01:49 03/16/18 23:05 03/17/18 04:00 03/16/18 23:05 - Medications Medications: Current Medications Amlodipine Besylate (Norvasc) 5 mg PO DAILY [facility] Last Admin: 03/16/18 10:13 Dose: 5 mg Aspirin (Aspirin) 325 mg PO DAILY [facility] Last Admin: 03/16/18 09:04 Dose: 325 mg Calcitriol (Rocaltrol) 0.25 mcg PO DAILY [facility] Last Admin: 03/16/18 09:04 Dose: 0.25 mcg Diphenhydramine HCl (Benadryl) 25 mg PO DAILY [facility] Last Admin: 03/16/18 09:04 Dose: 25 mg Famotidine (Pepcid) 20 mg PO DAILY [facility] Last Admin: 03/16/18 09:04 Dose: 20 mg Ferrous Sulfate (Feosol) 325 mg PO DAILY [facility] Last Admin: 03/16/18 09:03 Dose: 325 mg Finasteride (Proscar) 5 mg PO DAILY [facility] Last Admin: 03/16/18 09:04 Dose: 5 mg Heparin Sodium (Porcine) (Heparin) 5,000 units SC Q8 [facility] Last Admin: 03/16/18 21:03 Dose: 5,000 units Hydralazine HCl (Apresoline) 100 mg PO Q8 [facility] Last Admin: 03/16/18 21:03 Dose: 100 mg Insulin Human Regular (Novolin R) 0 unit SC ACHS [facility] PRN Reason: Protocol Last Admin: 03/16/18 21:33 Dose: Not Given Metoprolol Succinate (Toprol Xl) 50 mg PO BID [facility] Last Admin: 03/16/18 18:28 Dose: 50 mg Rosuvastatin Calcium (Crestor) 5 mg PO HS [facility] Last Admin: 03/16/18 21:03 Dose: 5 mg Sevelamer Carbonate (Renvela) 2.4 gm PO DAILY [facility] Last Admin: 03/16/18 09:05 Dose: 2.4 gm - Labs Labs: 03/16/18 06:30 03/16/18 06:30 PT 12.1 SECONDS (9.7-12.2) 03/14/18 16:25 INR 1.1 03/14/18 16:25 APTT 34 SECONDS (21-34) 03/14/18 16:25
[2018-03-17 07:57] LABS: BASO % 0.7 % (0.0-2.0); EOS # 0.2 K/uL (0.0-0.7); EOS % 3.5 % (0.0-4.0); HEMOGLOBIN 12.2 g/dL (12.0-18.0); LYMPH # 0.9 K/uL (1.0-4.3); LYMPH % 19.2 % (20.0-40.0); MEAN CELL VOLUME 97.7 fL (80.0-94.0); MEAN CORPUSCULAR HEMOGLOBIN 33.3 pg (27.0-31.0); MEAN CORPUSCULAR HGB CONC 34.1 g/dL (33.0-37.0); MEAN PLATELET VOLUME 9.3 fL (7.2-11.7); MONO # 0.6 K/uL (0.0-0.8); MONO % 14.1 % (0.0-10.0); NEUT # 2.9 K/uL (1.8-7.0); NEUT % 62.5 % (50.0-75.0); RBC 3.67 Mil/uL (4.40-5.90); WHITE BLOOD COUNT 4.6 K/uL (4.8-10.8)
--- NOTE | 2018-03-17 08:03 | CP.PCM.PN ---
Subjective - Date & Time of Evaluation Date of Evaluation: 03/17/18 Time of Evaluation: 08:03 - Subjective Subjective: Mr. Richards was seen and examined at the bedside. He is alert, oriented in all spheres. He denies any headache, dizziness, lightheadedness, nausea, or vomiting. He is able to follow simple commands. He has mild dysarthric but fluent and resolved Right arm mild pronator drift.There was no untoward events overnight. Objective - Vital Signs/Intake and Output Vital Signs (last 24 hours): Temp Pulse Resp BP Pulse Ox 98.3 F 86 20 186/92 H 98 03/16/18 23:05 03/17/18 01:49 03/16/18 23:05 03/17/18 04:00 03/16/18 23:05 - Medications Medications: Current Medications Amlodipine Besylate (Norvasc) 5 mg PO DAILY [facility] Last Admin: 03/16/18 10:13 Dose: 5 mg Aspirin (Aspirin) 325 mg PO DAILY [facility] Last Admin: 03/16/18 09:04 Dose: 325 mg Calcitriol (Rocaltrol) 0.25 mcg PO DAILY [facility] Last Admin: 03/16/18 09:04 Dose: 0.25 mcg Diphenhydramine HCl (Benadryl) 25 mg PO DAILY [facility] Last Admin: 03/16/18 09:04 Dose: 25 mg Famotidine (Pepcid) 20 mg PO DAILY [facility] Last Admin: 03/16/18 09:04 Dose: 20 mg Ferrous Sulfate (Feosol) 325 mg PO DAILY [facility] Last Admin: 03/16/18 09:03 Dose: 325 mg Finasteride (Proscar) 5 mg PO DAILY [facility] Last Admin: 03/16/18 09:04 Dose: 5 mg Heparin Sodium (Porcine) (Heparin) 5,000 units SC Q8 [facility] Last Admin: 03/17/18 05:57 Dose: 5,000 units Hydralazine HCl (Apresoline) 100 mg PO Q8 [facility] Last Admin: 03/17/18 05:57 Dose: 100 mg Insulin Human Regular (Novolin R) 0 unit SC ACHS [facility] PRN Reason: Protocol Last Admin: 03/16/18 21:33 Dose: Not Given Metoprolol Succinate (Toprol Xl) 50 mg PO BID [facility] Last Admin: 03/16/18 18:28 Dose: 50 mg Rosuvastatin Calcium (Crestor) 5 mg PO HS [facility] Last Admin: 03/16/18 21:03 Dose: 5 mg Sevelamer Carbonate (Renvela) 2.4 gm PO DAILY [facility] Last Admin: 03/16/18 09:05 Dose: 2.4 gm - Labs Labs: 03/17/18 07:41 03/16/18 06:30 PT 12.1 SECONDS (9.7-12.2) 03/14/18 16:25 INR 1.1 03/14/18 16:25 APTT 34 SECONDS (21-34) 03/14/18 16:25 - Constitutional Appears: No Acute Distress - Head Exam Head Exam: NORMAL INSPECTION - Neurological Exam Neurological Exam: Alert, Awake, Oriented x3 Neuro motor strength exam: Left Upper Extremity: 5, Right Upper Extremity: 5, Left Lower Extremity: 4, Right Lower Extremity: 5 Additional comments: Neurological unchanged from previous examination. Assessment and Plan (1) TIA (transient ischemic attack) Assessment & Plan: Case discussed with Dr. Burk, continue all current medical, physical, occupational, and speech regimens. Pending echocardiogram. Recommend to treat any electrolyte abnormalities, blood pressure and glycemic control. Status: Acute
[2018-03-17 08:06] LABS: ALB/GLOB RATIO 0.9 (1.0-2.1); ALBUMIN 3.9 g/dL (3.5-5.0); CALCIUM 8.4 mg/dl (8.6-10.4)
[2018-03-17] MEDS: (Novolin R) Insulin Human Regular 100 units/ml vial SC SCH ×4 (08:30→22:22)
[2018-03-17] MEDS: Metoprolol Succinate 50 mg XL Tab PO SCH ×2 (09:04→17:24)
[2018-03-17] MEDS: Sevelamer Carb 2.4 gm/Packet PO SCH (09:04)
--- NOTE | 2018-03-17 10:59 | CP.PCM.PN ---
Subjective - Date & Time of Evaluation Date of Evaluation: 03/17/18 Time of Evaluation: 10:58 - Subjective Subjective: pt is seen and examined, follow up consult is dictated #[id number] for hd on tuesday Objective - Vital Signs/Intake and Output Vital Signs (last 24 hours): Temp Pulse Resp BP Pulse Ox 98.7 F 92 H 20 166/70 H 99 03/17/18 07:00 03/17/18 08:00 03/17/18 07:00 03/17/18 07:00 03/17/18 09:05 - Medications Medications: Current Medications Amlodipine Besylate (Norvasc) 5 mg PO DAILY [facility] Last Admin: 03/17/18 09:04 Dose: 5 mg Aspirin (Aspirin) 325 mg PO DAILY [facility] Last Admin: 03/17/18 09:07 Dose: 325 mg Calcitriol (Rocaltrol) 0.25 mcg PO DAILY [facility] Last Admin: 03/17/18 09:04 Dose: 0.25 mcg Diphenhydramine HCl (Benadryl) 25 mg PO DAILY [facility] Last Admin: 03/17/18 09:04 Dose: 25 mg Famotidine (Pepcid) 20 mg PO DAILY [facility] Last Admin: 03/17/18 09:04 Dose: 20 mg Ferrous Sulfate (Feosol) 325 mg PO DAILY [facility] Last Admin: 03/17/18 09:07 Dose: 325 mg Finasteride (Proscar) 5 mg PO DAILY [facility] Last Admin: 03/17/18 09:04 Dose: 5 mg Heparin Sodium (Porcine) (Heparin) 5,000 units SC Q8 [facility] Last Admin: 03/17/18 05:57 Dose: 5,000 units Hydralazine HCl (Apresoline) 100 mg PO Q8 [facility] Last Admin: 03/17/18 05:57 Dose: 100 mg Insulin Human Regular (Novolin R) 0 unit SC ACHS [facility] PRN Reason: Protocol Last Admin: 03/17/18 08:30 Dose: Not Given Metoprolol Succinate (Toprol Xl) 50 mg PO BID [facility] Last Admin: 03/17/18 09:04 Dose: 50 mg Rosuvastatin Calcium (Crestor) 5 mg PO HS [facility] Last Admin: 03/16/18 21:03 Dose: 5 mg Sevelamer Carbonate (Renvela) 2.4 gm PO DAILY [facility] Last Admin: 03/17/18 09:04 Dose: 2.4 gm - Labs Labs: 03/17/18 07:41 03/17/18 07:41 PT 12.1 SECONDS (9.7-12.2) 03/14/18 16:25 INR 1.1 03/14/18 16:25 APTT 34 SECONDS (21-34) 03/14/18 16:25
--- NOTE | 2018-03-17 17:08 | CARD ---
APPROVED REPORT EKG Measurement Heart [id number] <Conclusion> Sinus rhythm with 1st degree AV block Possible Left atrial enlargement Right bundle branch block Inferior infarct, age undetermined Abnormal ECG
--- NOTE | 2018-03-17 21:24 | PN ---
DATE: 03/17/2018 LOCATION: 650, bed B. SUBJECTIVE: This is a 72 years old male seen and examined in rounds without significant clinical changes or reported active bleeding seen and examined early this morning with the Nephrology software security consultant on the case. The patient appeared to be somewhat more alert and oriented. Denied any actual chest pain, dizziness, palpitations. No reported vomiting, but mild dyspepsia and nausea on and off, somewhat able to follow simple commands with intermittent period of mild shortness of breath. No reported active bleeding, still on hemodialysis. His aphasia is subsequently and mildly improving. The entire chart is reviewed including but not limited to lab results, current and previous medication lists, current and previous medical records. LABORATORY DATA: Today's lab showed low white blood cells to 4.6, normal hemoglobin and hematocrit, normal platelet count with BUN of 40, creatinine 6.3, blood glucose level 152, calcium 8.4. The patient orally takes still some . PHYSICAL EXAMINATION: GENERAL: A 72 years old male. VITAL SIGNS: Afebrile with pulse of 76, respiratory rate 20 and 22, blood pressure of 158/74. HEENT: Showed pale, dry oral mucoid membrane. Nonicteric sclerae. LUNGS: Few scattered crepitation. Decreased air entry at bases. HEART: Positive S1 and S2. ABDOMEN: Soft, slight distention. No masses or organomegaly. No rebound tenderness or guarding. Mild generalized abdominal fine distention noticed. EXTREMITIES: Lower extremity edematous changes. No clubbing or cyanosis with status post amputation of the left second toe. NEUROLOGIC: No reported new neurological deficits, sensory or motor. No reported new focal deficits. IMPRESSION: 1. Questionable, recent history of transient ischemic attack. 2. The patient has a history of cardiac arrest status post pacemaker insertion as per record. 3. Known history of hyperlipidemia, hypertension, end-stage renal disease, on hemodialysis. 4. Peripheral vascular disease by history. 5. Poorly controlled diabetes mellitus. 6. Mild anemia by recent history. SUGGESTIONS: 1. Continue current management. 2. Due to the patient's reported change of bowel movement, his stools for C. diff to be followed up. 3. Cancer markers. 4. Peripheral hyperalimentation. 5. Further recommendation to follow. Frank Chamorro MD [facility] # [id number]
--- NOTE | 2018-03-18 02:15 | PN ---
DATE: 03/17/2018 FOLLOWUP RENAL CONSULTATION LOCATION: Room 650, bed B. REQUESTED BY: Dr. Emilio Israel. REASON FOR FOLLOWUP: End-stage renal disease, continuation with hemodialysis. SUBJECTIVE: Mr. Richards is a 72 years old elderly male with a past medical history significant for longstanding hypertension, diabetes, BPH, hyperlipidemia, end-stage renal disease on hemodialysis three times a week Tuesday, , Tuesday, status post treatment for diverticulitis, status post BKA, status post pacemaker placement who was sent from the dialysis unit after having a aphasia and tremors to rule out TIA and CVA. The patient is feeling much better, not in acute distress. Denies any headache, dizziness. Denies any chest pain or palpitation. Denies any fever or cough. No abdominal pain. No nausea, vomiting, diarrhea. PHYSICAL EXAMINATION: VITAL SIGNS: This morning, blood pressure 166/70, pulse 91, respiration 20, temperature 98.7, saturation 97%. Height 6 feet 1 inch, weight is 190 pounds. GENERAL: Mr. Richards is 72 years old elderly male, moderately built, moderately nourished, not in distress. HEENT: Pupils normal, react to light and accommodation. Conjunctivae pink. Sclerae anicteric. Tongue is moist and trachea is midline. LUNGS: Symmetric on both sides. Bilateral breath sounds present. Clear to auscultation. CVS: [place] at the fifth intercostal space, midclavicular line. S1 and S2 audible. No murmur or gallop. ABDOMEN: Normal in appearance, soft, tympanic. No guarding, no rigidity. No hepatosplenomegaly. PRODUCTION SUPPORT MANAGER: The patient is alert, awake, oriented x3. Nonfocal neuro examination. Cranial nerves II through XII grossly intact. Sensory and motor system is within normal limits. EXTREMITIES: No cyanosis, no clubbing no edema on the right leg, status post left BKA. CURRENT MEDICATIONS: Hydralazine 100 mg p.o. every 8 hours, aspirin 325 mg p.o. daily, Benadryl to 25 mg p.o. daily, Crestor 5 mg at bedtime, Feosol 325 mg p.o. daily, heparin 5000 units subcu every 8 hours, amlodipine 5 mg daily, Novolin R for sliding scale, Pepcid 20 mg daily, Proscar 5 mg p.o. daily, Renvela 2.4 gm daily, Rocaltrol 0.25 mcg p.o. daily and metoprolol 50 mg p.o. b.i.d. LABORATORY DATA: As of 03/17/2018; WBC 4.6, hemoglobin 12.2, hematocrit is 35.8, platelet 139. Sodium 140, potassium 4.5, chloride 97, CO 29, BUN 40, creatinine 6.3, glucose 137, calcium 8.7, total bili 0.7, AST 26, ALT 16, alkaline phos 121, total protein 8, albumin is 3.9. ASSESSMENT: In summary, Mr. Richards is about 72 years old elderly male with history of longstanding hypertension, diabetes, hyperlipidemia, benign prostatic hypertrophy, end-stage renal disease, status post below-knee amputation, diverticulitis, status post treatment about a week ago and admitted with aphasia and also tremors after dialysis on Tuesday. 1. End-stage renal disease. Continue hemodialysis three times a week Tuesday, , Tuesday. 2. Hypertension. Blood pressure is improving. Continue his current medications hydralazine, metoprolol and clonidine and we will titrate amlodipine as needed. 3. Diabetes. 4. End-stage renal disease. 5. Status post aphasia and tremors, rule out transient ischemic attack and follow up with Neurology. PLAN: The patient is awaiting for the subacute rehab placement for possible physical therapy. If patient is in the hospital tomorrow, we will schedule for dialysis. We will follow with you. Thank you for allowing me to participate in your patient's care. Blanca Thakkar MD
--- NOTE | 2018-03-18 05:16 | CP.PCM.PN ---
Subjective - Date & Time of Evaluation Date of Evaluation: 03/17/18 Time of Evaluation: 19:00 - Subjective Subjective: Pt seen and examined, is improved, dysarthia less likely due to CVA feels better, does not have any neurological deficit Objective - Vital Signs/Intake and Output Vital Signs (last 24 hours): Temp Pulse Resp BP Pulse Ox 98.3 F 85 20 187/83 H 98 03/17/18 23:05 03/18/18 01:00 03/17/18 23:05 03/18/18 04:00 03/17/18 23:05 - Medications Medications: Current Medications Amlodipine Besylate (Norvasc) 5 mg PO DAILY [facility] Last Admin: 03/17/18 09:04 Dose: 5 mg Aspirin (Aspirin) 325 mg PO DAILY [facility] Last Admin: 03/17/18 09:07 Dose: 325 mg Calcitriol (Rocaltrol) 0.25 mcg PO DAILY [facility] Last Admin: 03/17/18 09:04 Dose: 0.25 mcg Diphenhydramine HCl (Benadryl) 25 mg PO DAILY [facility] Last Admin: 03/17/18 09:04 Dose: 25 mg Famotidine (Pepcid) 20 mg PO DAILY [facility] Last Admin: 03/17/18 09:04 Dose: 20 mg Ferrous Sulfate (Feosol) 325 mg PO DAILY [facility] Last Admin: 03/17/18 09:07 Dose: 325 mg Finasteride (Proscar) 5 mg PO DAILY [facility] Last Admin: 03/17/18 09:04 Dose: 5 mg Heparin Sodium (Porcine) (Heparin) 5,000 units SC Q8 [facility] Last Admin: 03/17/18 22:26 Dose: 5,000 units Hydralazine HCl (Apresoline) 100 mg PO Q8 [facility] Last Admin: 03/17/18 22:26 Dose: 100 mg Insulin Human Regular (Novolin R) 0 unit SC [facility] PRN Reason: Protocol Last Admin: 03/17/18 22:22 Dose: Not Given Metoprolol Succinate (Toprol Xl) 50 mg PO BID [facility] Last Admin: 03/17/18 17:24 Dose: 50 mg Rosuvastatin Calcium (Crestor) 5 mg PO HS [facility] Last Admin: 03/17/18 22:26 Dose: 5 mg Sevelamer Carbonate (Renvela) 2.4 gm PO DAILY [facility] Last Admin: 03/17/18 09:04 Dose: 2.4 gm - Labs Labs: 03/17/18 07:41 03/17/18 07:41 PT 12.1 SECONDS (9.7-12.2) 03/14/18 16:25 INR 1.1 03/14/18 16:25 APTT 34 SECONDS (21-34) 03/14/18 16:25 - Constitutional Appears: No Acute Distress - Head Exam Head Exam: ATRAUMATIC, NORMAL INSPECTION, NORMOCEPHALIC - Eye Exam Eye Exam: EOMI, Normal appearance, PERRL Pupil Exam: NORMAL ACCOMODATION, PERRL - Respiratory Exam Respiratory Exam: Clear to Ausculation Bilateral, NORMAL BREATHING PATTERN - Cardiovascular Exam Cardiovascular Exam: REGULAR RHYTHM, +S1, +S2. absent: Murmur - Rectal Exam Rectal Exam: Deferred - Extremities Exam Extremities Exam: Full ROM, Normal Capillary Refill, Normal Inspection. absent : Joint Swelling, Pedal Edema Assessment and Plan (1) Dysarthria Assessment & Plan: unlikely CVA Physical therapy rehab Status: Acute (2) Slurred speech Status: Acute (3) CKD (chronic kidney disease) Status: Acute (4) ESRD needing dialysis Status: Acute (5) Hypertension Status: Chronic
--- NOTE | 2018-03-18 05:52 | CP.PCM.PN ---
Subjective - Date & Time of Evaluation Date of Evaluation: 03/18/18 Time of Evaluation: 19:00 - Subjective Subjective: Pt is seen and examined at the bedside. He is alert, oriented in all spheres. He denies any headache, dizziness, lightheadedness, nausea, or vomiting. He is able to follow simple commands. He has mild dysarthric but fluent and resolved Right arm mild pronator drift.There was no untoward events overnight. Objective - Vital Signs/Intake and Output Vital Signs (last 24 hours): Temp Pulse Resp BP Pulse Ox 98.3 F 85 20 187/83 H 98 03/17/18 23:05 03/18/18 01:00 03/17/18 23:05 03/18/18 04:00 03/17/18 23:05 - Medications Medications: Current Medications Amlodipine Besylate (Norvasc) 5 mg PO DAILY [facility] Last Admin: 03/17/18 09:04 Dose: 5 mg Aspirin (Aspirin) 325 mg PO DAILY [facility] Last Admin: 03/17/18 09:07 Dose: 325 mg Calcitriol (Rocaltrol) 0.25 mcg PO DAILY [facility] Last Admin: 03/17/18 09:04 Dose: 0.25 mcg Diphenhydramine HCl (Benadryl) 25 mg PO DAILY [facility] Last Admin: 03/17/18 09:04 Dose: 25 mg Famotidine (Pepcid) 20 mg PO DAILY [facility] Last Admin: 03/17/18 09:04 Dose: 20 mg Ferrous Sulfate (Feosol) 325 mg PO DAILY [facility] Last Admin: 03/17/18 09:07 Dose: 325 mg Finasteride (Proscar) 5 mg PO DAILY [facility] Last Admin: 03/17/18 09:04 Dose: 5 mg Heparin Sodium (Porcine) (Heparin) 5,000 units SC Q8 [facility] Last Admin: 03/18/18 05:25 Dose: 5,000 units Hydralazine HCl (Apresoline) 100 mg PO Q8 [facility] Last Admin: 03/18/18 05:25 Dose: 100 mg Insulin Human Regular (Novolin R) 0 unit SC [facility] PRN Reason: Protocol Last Admin: 03/17/18 22:22 Dose: Not Given Metoprolol Succinate (Toprol Xl) 50 mg PO BID [facility] Last Admin: 03/17/18 17:24 Dose: 50 mg Rosuvastatin Calcium (Crestor) 5 mg PO HS [facility] Last Admin: 03/17/18 22:26 Dose: 5 mg Sevelamer Carbonate (Renvela) 2.4 gm PO DAILY [facility] Last Admin: 03/17/18 09:04 Dose: 2.4 gm - Labs Labs: 03/17/18 07:41 03/17/18 07:41 PT 12.1 SECONDS (9.7-12.2) 03/14/18 16:25 INR 1.1 03/14/18 16:25 APTT 34 SECONDS (21-34) 03/14/18 16:25 Assessment and Plan (1) Dysarthria Status: Acute (2) Slurred speech Status: Acute (3) CKD (chronic kidney disease) Status: Acute (4) ESRD needing dialysis Status: Acute (5) Hypertension Status: Chronic
[2018-03-18 06:37] LABS: HEMOGLOBIN 12.7 g/dL (12.0-18.0); MEAN CELL VOLUME 97.3 fL (80.0-94.0); MEAN CORPUSCULAR HEMOGLOBIN 33.3 pg (27.0-31.0); MEAN CORPUSCULAR HGB CONC 34.3 g/dL (33.0-37.0); MEAN PLATELET VOLUME 9.4 fL (7.2-11.7); RBC 3.81 Mil/uL (4.40-5.90); RED CELL DISTRIBUTION WIDTH 14.9 % (11.5-14.5); WHITE BLOOD COUNT 4.9 K/uL (4.8-10.8)
[2018-03-18] MEDS: (Novolin R) Insulin Human Regular 100 units/ml vial SC SCH ×4 (06:45→22:07)
[2018-03-18 07:02] LABS: CALCIUM 7.6 mg/dl (8.6-10.4)
--- NOTE | 2018-03-18 10:50 | PN ---
DATE: 03/18/2018 LOCATION: 650, Bed B. SUBJECTIVE: This is a 72-year-old male seen and examined early in rounds today without any reported significant clinical changes with a complaint of mild generalized body ache with poor oral intake, is still on hemodialysis. The entire chart is reviewed including but not limited to the most recent lab and radiology study results, current and the previous medication list, current and the previous medical events. Case discussed with the staff and the patient today. Blood workup showed normal hemoglobin and hematocrit with normal platelet count, BUN of 50 with creatinine of 0.6, calcium 7.6, blood glucose level 109. PHYSICAL EXAMINATION: GENERAL: A 72-year-old male, afebrile with pulse of 82, respiratory rate 20 to 22 with blood pressure of 176/78. HEENT: Showed pale dry oral mucoid membrane. Nonicteric sclerae. LUNGS: Few scattered crepitation with decreased air entry at bases. HEART: Positive S1 and S2. ABDOMEN: Soft. No mass or organomegaly. No rebound tenderness or guarding, but mild generalized tenderness. Bowel sounds are present. EXTREMITIES: With evidence of status post below-knee amputation. No clubbing or cyanosis. NEUROLOGIC: No reported new neurological deficits, sensory, or motor. The patient denied this morning any episodes of nausea or vomiting or dyspepsia or vomiting, but mild nausea on and off. IMPRESSION: 1. Re-exacerbation of peptic ulcer disease. 2. End-stage renal disease, on hemodialysis. 3. Known history of but not limited to poorly controlled hypertension, diabetes mellitus by history. 4. Reported history of peripheral vascular disease. 5. Possible recent history of transient ischemic attack. 6. Reported history of status post cardiac arrest, status post pacemaker insertion as per record. SUGGESTIONS: 1. Continue current management. 2. Guaiac all the stool every other day x3. 3. Follow up on cancer markers. 4. Advance oral intake as tolerated. Frank Chamorro MD
--- NOTE | 2018-03-18 11:10 | CARD ---
APPROVED REPORT EXAM: Two-dimensional and M-mode echocardiogram with Doppler and color Doppler. Other Information Quality : GoodRhythm : INDICATION CVA/TIA Dyspnea Cardiac Disease: CAD ESRD RISK FACTORS Hypertension Diabetes 2D DIMENSIONS IVSd1.8 (0.7-1.1cm)LVDd4.1 (3.9-5.9cm) PWd1.7 (0.7-1.1cm)LVDs2.0 (2.5-4.0cm) FS (%) 49.5 %LVEF (%)81.3 (>50%) M-Mode DIMENSIONS Left Atrium (MM)3.90 (2.5-4.0cm)Aortic Root4.38 (2.2-3.7cm) Aortic Cusp Exc.2.13 (1.5-2.0cm) Mitral Valve MV E Mpntmgbm26.0cm/sMV A Nnmnybub383.2cm/sE/A ratio0.7 TDI E/Lateral E'0.0E/Medial E'0.0 Tricuspid Valve TR Peak Kqqpbpyb548uu/sTR Peak Gr.[id number] LEFT VENTRICLE The left ventricle is normal size. There is mild to moderate concentric left ventricular hypertrophy. The left ventricular function is normal. The left ventricular ejection fraction is within the normal range. There is normal LV segmental wall motion. The left ventricular diastolic function is normal. Transmitral Doppler flow pattern is Grade I-abnormal relaxation pattern. No left ventricle thrombus noted on this study. There is no ventricular septal defect visualized. There is no left ventricular aneurysm. There is no mass noted in the left ventricle. ATRIA The left atrium is borderline dilated. The right atrium size is normal. AORTIC VALVE The aortic valve is normal in structure. No aortic regurgitation is present. There is no aortic valvular stenosis. There is no aortic valvular vegetation. MITRAL VALVE The mitral valve is normal in structure. There is no mitral valve stenosis. Mitral regurgitation is mild. TRICUSPID VALVE The tricuspid valve is normal in structure. There is no tricuspid valve regurgitation noted. PULMONIC VALVE The pulmonary valve is normal in structure. There is no pulmonic valvular regurgitation. GREAT VESSELS The aortic root is normal in size. The ascending aorta is normal in size. The pulmonary artery is normal. The IVC is normal in size and collapses >50% with inspiration. PERICARDIAL EFFUSION There is a small loculated posterior pericardial effusion. <Conclusion> There is mild to moderate concentric left ventricular hypertrophy. Mitral regurgitation is mild. The left atrium is borderline dilated.LVEF IS 70%. The left ventricular diastolic function is normal. Transmitral Doppler flow pattern is Grade I-abnormal relaxation pattern.
--- NOTE | 2018-03-18 11:39 | CP.PCM.PN ---
Subjective - Date & Time of Evaluation Date of Evaluation: 03/18/18 Time of Evaluation: 11:39 - Subjective Subjective: pt is seen and examiend, follow up consult is dictated #[id number] seen in hd , uf goal is 3 lit Objective - Vital Signs/Intake and Output Vital Signs (last 24 hours): Temp Pulse Resp BP Pulse Ox 98.1 F 81 20 194/92 H 98 03/18/18 10:05 03/18/18 10:05 03/18/18 10:05 03/18/18 11:05 03/18/18 10:05 - Medications Medications: Current Medications Amlodipine Besylate (Norvasc) 5 mg PO DAILY [facility] Last Admin: 03/18/18 11:36 Dose: 5 mg Aspirin (Aspirin) 325 mg PO DAILY [facility] Last Admin: 03/17/18 09:07 Dose: 325 mg Calcitriol (Rocaltrol) 0.25 mcg PO DAILY [facility] Last Admin: 03/17/18 09:04 Dose: 0.25 mcg Diphenhydramine HCl (Benadryl) 25 mg PO DAILY [facility] Last Admin: 03/17/18 09:04 Dose: 25 mg Famotidine (Pepcid) 20 mg PO DAILY [facility] Last Admin: 03/17/18 09:04 Dose: 20 mg Ferrous Sulfate (Feosol) 325 mg PO DAILY [facility] Last Admin: 03/17/18 09:07 Dose: 325 mg Finasteride (Proscar) 5 mg PO DAILY [facility] Last Admin: 03/17/18 09:04 Dose: 5 mg Hydralazine HCl (Apresoline) 100 mg PO Q8 [facility] Last Admin: 03/18/18 05:25 Dose: 100 mg Insulin Human Regular (Novolin R) 0 unit SC [facility] PRN Reason: Protocol Last Admin: 03/18/18 06:45 Dose: Not Given Metoprolol Succinate (Toprol Xl) 50 mg PO BID [facility] Last Admin: 03/17/18 17:24 Dose: 50 mg Rosuvastatin Calcium (Crestor) 5 mg PO HS [facility] Last Admin: 03/17/18 22:26 Dose: 5 mg Sevelamer Carbonate (Renvela) 2.4 gm PO DAILY [facility] Last Admin: 03/17/18 09:04 Dose: 2.4 gm - Labs Labs: 03/18/18 06:28 03/18/18 06:28 PT 12.1 SECONDS (9.7-12.2) 03/14/18 16:25 INR 1.1 03/14/18 16:25 APTT 34 SECONDS (21-34) 03/14/18 16:25
[2018-03-18] MEDS: Metoprolol Succinate 50 mg XL Tab PO SCH ×2 (13:14→17:13)
[2018-03-18] MEDS: Sevelamer Carb 2.4 gm/Packet PO SCH (14:17)
--- NOTE | 2018-03-19 00:59 | PN ---
DATE: 03/18/2018 FOLLOWUP RENAL CONSULTATION LOCATION: Room 650, bed B. REQUESTED BY: Dr. Emilio Israel. SUBJECTIVE: Mr. Richards is a 72 years old elderly male with a past medical history significant for longstanding hypertension, diabetes, end-stage renal disease, status post BKA, diverticulitis, status post pacemaker, who was admitted with chief complaints of aphasia and tremors post dialysis last week on Tuesday. The patient is not in acute distress. The patient is being dialyzed, UF goal is about 3 liters. Denies any headache, dizziness. Denies any chest pain or palpitation. Denies any fever or cough. No abdominal pain. No nausea, vomiting, diarrhea. PHYSICAL EXAMINATION: VITAL SIGNS: Blood pressure 186/90, pulse is about 81, respirations 20, temperature 97.6, saturation 96%. Height 6 feet 1 inch, weight is 190 pounds. GENERAL: Mr. Richards is a 72 years old elderly male, moderately built, moderately nourished, not in acute distress. HEENT: Pupils normal, react to light and accommodation. Conjunctivae pink. Sclerae anicteric. Tongue is moist. Trachea is midline. LUNGS: Symmetric on both sides. Bilateral breath sounds present. Clear to auscultation. CVS: [place] at the fifth intercostal space, midclavicular line. S1 and S2 audible. No murmur or gallop. ABDOMEN: Normal in appearance, soft, tympanic. No guarding, no rigidity. No hepatosplenomegaly. PILOT FUEL ENGINEER: The patient is alert, awake, oriented x3. Nonfocal neuro examination. Cranial nerves II through XII grossly intact grossly intact. Sensory and motor system is within normal limits. EXTREMITIES: No cyanosis, no clubbing, no edema on the right leg status post left BKA. CURRENT MEDICATIONS: Hydralazine 100 mg p.o. every 8 hours, aspirin 325 mg daily, Benadryl 25 mg daily, Crestor 5 mg at bedtime, Feosol 325 mg p.o. daily, amlodipine 10 mg daily, Pepcid 20 mg p.o. daily, Proscar 5 mg daily, Renvela 2.4 gm p.o. daily, calcitriol 0.25 mcg daily, metoprolol 50 mg p.o. b.i.d. LABORATORY DATA: As of 03/18/2018; WBC 4.9, hemoglobin 12.7, hematocrit is 37.1, platelets 142. Sodium 136, potassium is 5, chloride 95, CO 24, BUN 50, creatinine 8.7, glucose 109, calcium 7.6. ASSESSMENT: In summary, Mr. Richards is a 72 years old elderly male with hypertension, diabetes, end-stage renal disease, status post below-knee amputation, status post diverticulitis, status post pacemaker, was admitted with aphasia and tremors post dialysis on Tuesday and the patient is being dialyzed, ultrafiltration goal is about 3 liters. 1. End-stage renal disease. Continue hemodialysis three times a week Tuesday, , Tuesday. 2. Uncontrolled hypertension. Continue hydralazine, Norvasc and metoprolol, titrate his metoprolol as needed. We will consider to add losartan also. PLAN: Continue followup with Neurology for further management and possible subacute rehab placement. Restrict fluids to 1 liter per day and also low-sodium, low potassium diet. We will follow with you. Thank you for allowing me to participate in your patient's care. Blanca Thakkar MD
[2018-03-19] MEDS: (Novolin R) Insulin Human Regular 100 units/ml vial SC SCH ×4 (07:43→21:26)
[2018-03-19] MEDS: Sevelamer Carb 2.4 gm/Packet PO SCH (09:29)
[2018-03-19] MEDS: Metoprolol Succinate 50 mg XL Tab PO SCH ×2 (09:29→17:39)
--- NOTE | 2018-03-19 11:27 | PN ---
DATE: LOCATION: 650, bed B. SUBJECTIVE: This is a 72-year-old male, seen and examined early in rounds without significant clinical changes or reported active bleeding with less reported episode of nausea or vomiting or dizziness. The patient denied any chest pain, palpitation, or significant shortness of breath. No chills or fever. The entire chart is reviewed including but not limited to most recent lab and radiology study results, current and the previous medication list, current and the previous medical events. Today's lab showed blood glucose level 137, rest of the lab results still pending, however, the patient still have elevated BUN and creatinine secondary to his chronic renal failure. No reported active bleeding. The patient is still complaining of intermittent periods of postprandial abdominal distention with mild abdominal pain. PHYSICAL EXAMINATION: GENERAL: A 72-year-old male, awake, alert, oriented, complaining of generalized weakness and malaise. VITAL SIGNS: Afebrile with pulse of 76, respiratory rate 20 to 22, blood pressure of 154/70. HEENT: Showed pale dry oral mucoid membrane. Nonicteric sclerae. LUNGS: Few scattered crepitation with decreased air entry at bases. HEART: Positive S1 and S2. ABDOMEN: Soft with mild distention and slight generalized tenderness. No mass or organomegaly. No rebound tenderness or guarding. RECTAL: The patient refused. EXTREMITIES: With mild lower extremity edematous changes. No clubbing or cyanosis. Peripheral pulses are present but decreased at bases. NEUROLOGIC: No reported new neurological deficits, sensory or motor. No reported new focal deficits. IMPRESSION: 1. Re-exacerbation of peptic ulcer disease. 2. End-stage renal disease, on hemodialysis. 3. Known history of poorly controlled hypertension, diabetes mellitus, peripheral vascular disease. 4. Known history of status post transient ischemic attack as reported. 5. Known reported history of status post cardiac arrhythmia with status post pacemaker insertion before. SUGGESTIONS: 1. Continue current management. 2. Guaiac all the stools daily x3. 3. Proton pump inhibitors. 4. Zofran p.r.n. 5. The patient may need abdominal ultrasound due to his previous complaint of nausea and dyspepsia. 6. No need for aggressive gastrointestinal workup in the meantime until the patient is more stable clinically. Further recommendation to follow. Frank Chamorro MD [facility] # [id number]
--- NOTE | 2018-03-19 12:26 | CP.PCM.PN ---
Subjective - Date & Time of Evaluation Date of Evaluation: 03/19/18 Time of Evaluation: 12:26 - Subjective Subjective: pt is seen and examined, follow up consult is dictated #[id number] Objective - Vital Signs/Intake and Output Vital Signs (last 24 hours): Temp Pulse Resp BP Pulse Ox 98.4 F 85 18 163/83 H 96 03/19/18 08:39 03/19/18 08:39 03/19/18 08:39 03/19/18 08:39 03/19/18 07:42 Intake and Output: 03/19/18 03/19/18 06:59 18:59 Intake Total 120 Balance 120 - Medications Medications: Current Medications Amlodipine Besylate (Norvasc) 10 mg PO DAILY [facility] Last Admin: 03/19/18 09:30 Dose: 10 mg Aspirin (Aspirin) 325 mg PO DAILY [facility] Last Admin: 03/19/18 09:34 Dose: 325 mg Calcitriol (Rocaltrol) 0.25 mcg PO DAILY [facility] Last Admin: 03/19/18 09:29 Dose: 0.25 mcg Diphenhydramine HCl (Benadryl) 25 mg PO DAILY [facility] Last Admin: 03/19/18 09:29 Dose: 25 mg Famotidine (Pepcid) 20 mg PO DAILY [facility] Last Admin: 03/19/18 09:29 Dose: 20 mg Ferrous Sulfate (Feosol) 325 mg PO DAILY [facility] Last Admin: 03/19/18 09:29 Dose: 325 mg Finasteride (Proscar) 5 mg PO DAILY [facility] Last Admin: 03/19/18 09:29 Dose: 5 mg Hydralazine HCl (Apresoline) 100 mg PO Q8 [facility] Last Admin: 03/19/18 05:19 Dose: 100 mg Insulin Human Regular (Novolin R) 0 unit SC [facility] PRN Reason: Protocol Last Admin: 03/19/18 07:43 Dose: Not Given Metoprolol Succinate (Toprol Xl) 50 mg PO BID [facility] Last Admin: 03/19/18 09:29 Dose: 50 mg Rosuvastatin Calcium (Crestor) 5 mg PO HS [facility] Last Admin: 03/18/18 21:34 Dose: 5 mg Sevelamer Carbonate (Renvela) 2.4 gm PO DAILY [facility] Last Admin: 03/19/18 09:29 Dose: 2.4 gm - Labs Labs: 03/18/18 06:28 03/18/18 06:28 PT 12.1 SECONDS (9.7-12.2) 03/14/18 16:25 INR 1.1 03/14/18 16:25 APTT 34 SECONDS (21-34) 03/14/18 16:25
--- NOTE | 2018-03-19 22:26 | CP.PCM.PN ---
Subjective - Date & Time of Evaluation Date of Evaluation: 03/19/18 Time of Evaluation: 19:00 - Subjective Subjective: Pt seen and examined at bedside Objective - Vital Signs/Intake and Output Vital Signs (last 24 hours): Temp Pulse Resp BP Pulse Ox 98.1 F 78 20 179/90 H 99 03/19/18 15:00 03/19/18 16:00 03/19/18 15:00 03/19/18 15:00 03/19/18 15:00 - Medications Medications: Current Medications Amlodipine Besylate (Norvasc) 10 mg PO DAILY [facility] Last Admin: 03/19/18 09:30 Dose: 10 mg Aspirin (Aspirin) 325 mg PO DAILY [facility] Last Admin: 03/19/18 09:34 Dose: 325 mg Calcitriol (Rocaltrol) 0.25 mcg PO DAILY [facility] Last Admin: 03/19/18 09:29 Dose: 0.25 mcg Diphenhydramine HCl (Benadryl) 25 mg PO DAILY [facility] Last Admin: 03/19/18 09:29 Dose: 25 mg Famotidine (Pepcid) 20 mg PO DAILY [facility] Last Admin: 03/19/18 09:29 Dose: 20 mg Ferrous Sulfate (Feosol) 325 mg PO DAILY [facility] Last Admin: 03/19/18 09:29 Dose: 325 mg Finasteride (Proscar) 5 mg PO DAILY [facility] Last Admin: 03/19/18 09:29 Dose: 5 mg Hydralazine HCl (Apresoline) 100 mg PO Q8 [facility] Last Admin: 03/19/18 21:24 Dose: 100 mg Insulin Human Regular (Novolin R) 0 unit SC [facility] PRN Reason: Protocol Last Admin: 03/19/18 21:26 Dose: Not Given Metoprolol Succinate (Toprol Xl) 50 mg PO BID [facility] Last Admin: 03/19/18 17:39 Dose: 50 mg Rosuvastatin Calcium (Crestor) 5 mg PO HS [facility] Last Admin: 03/19/18 21:24 Dose: 5 mg Sevelamer Carbonate (Renvela) 2.4 gm PO DAILY [facility] Last Admin: 03/19/18 09:29 Dose: 2.4 gm - Labs Labs: 03/18/18 06:28 03/18/18 06:28 PT 12.1 SECONDS (9.7-12.2) 03/14/18 16:25 INR 1.1 03/14/18 16:25 APTT 34 SECONDS (21-34) 03/14/18 16:25 Assessment and Plan (1) Dysarthria Status: Acute (2) Slurred speech Status: Acute (3) CKD (chronic kidney disease) Status: Acute (4) ESRD needing dialysis Status: Acute (5) Hypertension Status: Chronic
--- NOTE | 2018-03-20 00:44 | PN ---
DATE: 03/19/2018 FOLLOWUP RENAL CONSULTATION LOCATION: Room 650, bed B. REQUESTED BY: Dr. Emilio Israel. REASON FOR FOLLOWUP: End-stage renal disease, hypertension, for continuation with hemodialysis. SUBJECTIVE: Mr. Richards is a 72 years old elderly very pleasant male with a past medical history significant for longstanding hypertension, diabetes, diverticulitis, end-stage renal disease, status post pacemaker and status post left BKA was admitted with chief complaints of aphasia and tremors post dialysis on Tuesday. The patient is feeling much better, not in acute distress. Denies any headache, dizziness. Denies any chest pain or palpitation. Denies any fever or cough. No abdominal pain. No nausea, vomiting or diarrhea. PHYSICAL EXAMINATION: VITAL SIGNS: This morning as follows; blood pressure 163/83, pulse 85, respiration 18, temperature 98.4, saturation 99%. Height 6 feet 1 inch, weight is 190 pounds. GENERAL: Mr. Richards is a 72 years elderly male, moderately built, moderately nourished, not in acute distress. HEENT: Pupils normal, react to light and accommodation. Conjunctivae pink. Sclerae anicteric. Tongue is moist. Trachea is midline. LUNGS: Symmetric on both sides. Bilateral breath sounds present. Clear to auscultation. CVS: [place] at the fifth intercostal space, midclavicular line. S1 and S2 audible. No murmur or gallop. ABDOMEN: Normal in appearance, soft, tympanic. No guarding, no rigidity. No hepatosplenomegaly. KINDER TEACHER: The patient is alert, awake, oriented x3. Nonfocal neuro examination. Cranial nerves II through XII grossly intact. Sensory and motor system is within normal limits. EXTREMITIES: No cyanosis, no clubbing, no edema on the right side status post left BKA. CURRENT MEDICATIONS: Hydralazine 100 mg p.o. every 8 hours, aspirin 325 mg p.o. daily, Benadryl 25 mg p.o. daily, Crestor 5 mg at bedtime, Feosol 325 mg p.o. daily, Novolin R for sliding scale, Pepcid 20 mg p.o. daily, Proscar 5 mg p.o. daily, Renvela 2.4 gm p.o. daily, calcitriol 0.25 mcg p.o. daily, metoprolol 50 mg p.o. b.i.d. LABORATORY DATA: As of 03/18/2018; WBC 4.9, hemoglobin 12.7, hematocrit is 37.1, platelets 142. Sodium 136, potassium is 5, chloride 95, CO 24, BUN 50, creatinine 8.7, glucose 119, calcium 7.6. ASSESSMENT: In summary, Mr. Richards is a 72 years old elderly male with a history of longstanding hypertension, diabetes, end stage renal disease, diverticulitis, status post pacemaker, status post below knee amputation was admitted with tremors and aphasia post dialysis on Tuesday, now the patient is feeling much better. 1. End-stage renal disease. Continue hemodialysis three times a week Tuesday, , Tuesday. 2. Uncontrolled hypertension. Continue his blood pressure medication, hydralazine 100 mg p.o. every 8 hours and metoprolol 50 mg p.o. b.i.d. and Norvasc 10 mg daily and continue low-sodium diet. 3. Diabetes. Sugars are under control. 4. Rule out transient ischemic attack. PLAN: Continue aspirin. Follow up with Urology for further recommendations. Change Renvela to 800 mg three times a day with food. Blanca Thakkar MD
--- NOTE | 2018-03-20 08:17 | CP.PCM.PN ---
Subjective - Date & Time of Evaluation Date of Evaluation: 03/20/18 Time of Evaluation: 08:17 - Subjective Subjective: Mr. Richards was seen and examined at the bedside. He is alert, oriented in all spheres. He denies any headache, dizziness, lightheadedness, nausea, or vomiting. He is able to follow simple commands. He has clear speech and fluent. He is able to follow all commands.There was no untoward events overnight. Objective - Vital Signs/Intake and Output Vital Signs (last 24 hours): Temp Pulse Resp BP Pulse Ox 98.2 F 80 20 171/82 H 96 03/20/18 07:00 03/20/18 07:00 03/20/18 07:00 03/20/18 07:00 03/20/18 07:00 Intake and Output: 03/20/18 03/20/18 06:59 18:59 Intake Total 120 Balance 120 - Medications Medications: Current Medications Amlodipine Besylate (Norvasc) 10 mg PO DAILY [facility] Last Admin: 03/19/18 09:30 Dose: 10 mg Aspirin (Aspirin) 325 mg PO DAILY [facility] Last Admin: 03/19/18 09:34 Dose: 325 mg Calcitriol (Rocaltrol) 0.25 mcg PO DAILY [facility] Last Admin: 03/19/18 09:29 Dose: 0.25 mcg Diphenhydramine HCl (Benadryl) 25 mg PO DAILY [facility] Last Admin: 03/19/18 09:29 Dose: 25 mg Famotidine (Pepcid) 20 mg PO DAILY [facility] Last Admin: 03/19/18 09:29 Dose: 20 mg Ferrous Sulfate (Feosol) 325 mg PO DAILY [facility] Last Admin: 03/19/18 09:29 Dose: 325 mg Finasteride (Proscar) 5 mg PO DAILY [facility] Last Admin: 03/19/18 09:29 Dose: 5 mg Hydralazine HCl (Apresoline) 100 mg PO Q8 [facility] Last Admin: 03/20/18 06:10 Dose: 100 mg Insulin Human Regular (Novolin R) 0 unit SC [facility] PRN Reason: Protocol Last Admin: 03/19/18 21:26 Dose: Not Given Metoprolol Succinate (Toprol Xl) 50 mg PO BID [facility] Last Admin: 03/19/18 17:39 Dose: 50 mg Rosuvastatin Calcium (Crestor) 5 mg PO HS [facility] Last Admin: 03/19/18 21:24 Dose: 5 mg Sevelamer Carbonate (Renvela) 2.4 gm PO DAILY [facility] Last Admin: 03/19/18 09:29 Dose: 2.4 gm - Labs Labs: 03/18/18 06:28 03/18/18 06:28 PT 12.1 SECONDS (9.7-12.2) 03/14/18 16:25 INR 1.1 03/14/18 16:25 APTT 34 SECONDS (21-34) 03/14/18 16:25 - Constitutional Appears: No Acute Distress - Head Exam Head Exam: NORMAL INSPECTION - Neurological Exam Neurological Exam: Alert, Awake, Oriented x3 Neuro motor strength exam: Left Upper Extremity: 5, Right Upper Extremity: 5, Left Lower Extremity: 4, Right Lower Extremity: 4 Additional comments: Neurological unchanged from previous examination. Assessment and Plan (1) TIA (transient ischemic attack) Assessment & Plan: Case discussed with Dr. Conrad, continue all current medical, physical, occupational, and speech regimens.Recommend to treat any electrolyte abnormalities, blood pressure and glycemic control. Neurology is signing off from this case since the patient is back to his baseline. Please re-consult if needed. Status: Acute
[2018-03-20] MEDS: (Novolin R) Insulin Human Regular 100 units/ml vial SC SCH ×4 (08:30→21:54)
[2018-03-20] MEDS: Metoprolol Succinate 50 mg XL Tab PO SCH ×2 (10:26→17:38)
[2018-03-20] MEDS: Sevelamer Carb 2.4 gm/Packet PO SCH (10:26)
--- NOTE | 2018-03-20 11:39 | CP.PCM.PN ---
Subjective - Date & Time of Evaluation Date of Evaluation: 03/20/18 Time of Evaluation: 11:39 - Subjective Subjective: pt is seen and examined, follow up consult is dictated #[id number] Objective - Vital Signs/Intake and Output Vital Signs (last 24 hours): Temp Pulse Resp BP Pulse Ox 98.2 F 80 20 171/82 H 96 03/20/18 07:00 03/20/18 07:00 03/20/18 07:00 03/20/18 07:00 03/20/18 07:00 Intake and Output: 03/20/18 03/20/18 06:59 18:59 Intake Total 120 Balance 120 - Medications Medications: Current Medications Amlodipine Besylate (Norvasc) 10 mg PO DAILY [facility] Last Admin: 03/20/18 10:26 Dose: 10 mg Aspirin (Aspirin) 325 mg PO DAILY [facility] Last Admin: 03/20/18 10:26 Dose: 325 mg Calcitriol (Rocaltrol) 0.25 mcg PO DAILY [facility] Last Admin: 03/20/18 10:26 Dose: 0.25 mcg Diphenhydramine HCl (Benadryl) 25 mg PO DAILY [facility] Last Admin: 03/20/18 10:26 Dose: 25 mg Famotidine (Pepcid) 20 mg PO DAILY [facility] Last Admin: 03/20/18 10:26 Dose: 20 mg Ferrous Sulfate (Feosol) 325 mg PO DAILY [facility] Last Admin: 03/20/18 10:26 Dose: 325 mg Finasteride (Proscar) 5 mg PO DAILY [facility] Last Admin: 03/20/18 10:26 Dose: 5 mg Hydralazine HCl (Apresoline) 100 mg PO Q8 [facility] Last Admin: 03/20/18 06:10 Dose: 100 mg Insulin Human Regular (Novolin R) 0 unit SC [facility] PRN Reason: Protocol Last Admin: 03/20/18 08:30 Dose: Not Given Metoprolol Succinate (Toprol Xl) 50 mg PO BID [facility] Last Admin: 03/20/18 10:26 Dose: 50 mg Rosuvastatin Calcium (Crestor) 5 mg PO HS [facility] Last Admin: 03/19/18 21:24 Dose: 5 mg Sevelamer Carbonate (Renvela) 2.4 gm PO DAILY [facility] Last Admin: 03/20/18 10:26 Dose: 2.4 gm - Labs Labs: 03/18/18 06:28 03/18/18 06:28 PT 12.1 SECONDS (9.7-12.2) 03/14/18 16:25 INR 1.1 03/14/18 16:25 APTT 34 SECONDS (21-34) 03/14/18 16:25
--- NOTE | 2018-03-21 02:34 | PN ---
DATE: 03/20/2018 FOLLOWUP RENAL CONSULTATION LOCATION: The patient is located in room 650, bed B. REQUESTED BY: Emilio Israel MD REASON FOR FOLLOWUP: End-stage renal disease, for continuation of hemodialysis. HISTORY OF PRESENT ILLNESS: Mr. Richards is a 72-year-old elderly -[place] male with a past medical history significant for longstanding hypertension, diabetes, diverticulitis, end-stage renal disease on hemodialysis three times a week on Tuesday, and Tuesday, status post left BKA, status post pacemaker placement who was admitted with chief complaints of aphasia transient and tremors during in the post-dialysis last week on Tuesday. The patient is feeling better, not in acute distress. Denies any headache, dizziness. Denies any chest pain or palpitation. Denies any fever or cough. No abdominal pain. No nausea. No vomiting or diarrhea. PHYSICAL EXAMINATION: VITAL SIGNS: His vital signs as follows: Blood pressure this morning 172/88, pulse 82, respirations 20, temperature 98.2. GENERAL: Mr. Richards is a 72-year-old elderly -[place] male, moderately built, moderate nourished, not in acute distress. HEENT: Pupils normal and reactive to light and accommodation. Conjunctivae pink. Sclerae anicteric. Tongue is moist. Trachea is midline. LUNGS: Symmetric on both sides. Bilateral breath sounds present. Clear to auscultation. CVS: [place] at the fifth intercostal space, midclavicular line. S1, S2 audible. No murmur or gallop. ABDOMEN: Normal in appearance, soft, tympanic. No guarding, no rigidity. No hepatosplenomegaly. CERTIFIED PERSONAL TRAINER: The patient is alert, awake, oriented x3. Nonfocal neuro examination. Cranial nerves II-XII grossly intact. Sensory and motor system is within normal limits. EXTREMITIES: No cyanosis, no clubbing, no edema on the right side. Status post left BKA. MEDICATIONS: His current medications include as follows: Hydralazine 100 mg p.o. every 8 hours, aspirin 325 mg p.o. daily, Benadryl 25 mg p.o. daily, Crestor 5 mg at bedtime, Feosol 325 mg p.o. daily, amlodipine 10 mg p.o. daily, Pepcid 20 mg p.o. daily, Proscar 5 mg p.o. daily, Renvela 2.4 g p.o. daily, Rocaltrol 0.25 mcg p.o. daily, and metoprolol 50 mg p.o. b.i.d. LABORATORY DATA: No new labs are available. His Accu-Cheks 117 and 238. Vitamin B12 is 786 and TSH is 2.49. IMPRESSION: In summary, Mr. Richards is a 72-year-old elderly -[place] male with a history of hypertension, diabetes, hyperlipidemia, benign prostatic hyperplasia, diverticulitis, status post below-knee amputation, status post pacemaker placement who was admitted with aphasia and tremors and rule out transient ischemic attack. 1. End-stage renal disease. Continue hemodialysis three times a week on Tuesday, , and Tuesday. 2. Hypertension. Blood pressure is still high. Continue hydralazine. Continue Norvasc. Increase metoprolol to 75 mg p.o. b.i.d. and titrate as needed. 3. Diabetes. Sugars are under control. Change Renvela to 800 mg p.o. t.i.d. We will follow with you. Thank you for allowing me to participate in your patient's care. Blanca Thakkar MD
[2018-03-21] MEDS: (Novolin R) Insulin Human Regular 100 units/ml vial SC SCH ×3 (07:45→18:49)
--- NOTE | 2018-03-21 07:45 | PN ---
DATE: 03/20/2018 LOCATION: 650, bed B. SUBJECTIVE: This is a 72-year-old male seen and examined in rounds today, appeared to be more awake, alert and oriented. Denies any actual chest pain or palpitation. No headache or dizziness and no significant complaint of shortness of breath. The entire chart is reviewed including but not limited to the most recent lab and radiology study results, current and the previous medication list, current and the previous medical events. Case discussed with the staff at length. The patient is still have mild intermittent period of mild nausea with slight abdominal discomfort but no reported active bleeding. Today's lab results showed blood glucose level of 238. Rest of the blood results still pending. PHYSICAL EXAMINATION: GENERAL: A 72-year-old male. VITAL SIGNS: Afebrile with pulse of 84, respiratory rate 20 to 22, blood pressure of 156/74. HEENT: Showed pale dry oral mucoid membrane. Nonicteric sclerae. LUNGS: Few scattered crepitation. Decreased air entry at bases. HEART: Positive S1 and S2. ABDOMEN: Soft with mild generalized tenderness. No mass or organomegaly. No rebound tenderness or guarding. EXTREMITIES: With lower extremities mild edematous changes with weakness. No clubbing or cyanosis. Peripheral pulses are present bilaterally but decreased. NEUROLOGIC: No reported new neurological deficits, sensory or motor and no reported new focal deficits. IMPRESSION: 1. Peptic ulcer disease. 2. End-stage renal disease on hemodialysis. 3. Known history of hypertension, diabetes mellitus with peripheral vascular disease. 4. Reported history of status post transient ischemic attack. 5. Reported history of status post cardiac arrhythmia with pacemaker insertion. SUGGESTIONS: 1. Continue current management. 2. Add Zofran IV p.r.n. 3. Guaiac all the stools daily x3 due to the patient's recent lab results. 4. Follow up the cancer markers. 5. Further recommendation to follow. Frank Chamorro MD
--- NOTE | 2018-03-21 08:57 | CP.PCM.PN ---
Subjective - Date & Time of Evaluation Date of Evaluation: 03/20/18 Time of Evaluation: 19:00 - Subjective Subjective: Pt seen and examined at bedside Objective - Vital Signs/Intake and Output Vital Signs (last 24 hours): Temp Pulse Resp BP Pulse Ox 98.4 F 79 20 165/77 H 96 03/21/18 08:28 03/21/18 08:28 03/21/18 08:28 03/21/18 08:28 03/21/18 08:28 Intake and Output: 03/21/18 03/21/18 06:59 18:59 Intake Total 120 Balance 120 - Medications Medications: Current Medications Amlodipine Besylate (Norvasc) 10 mg PO DAILY [facility] Last Admin: 03/20/18 10:26 Dose: 10 mg Aspirin (Aspirin) 325 mg PO DAILY [facility] Last Admin: 03/20/18 10:26 Dose: 325 mg Calcitriol (Rocaltrol) 0.25 mcg PO DAILY [facility] Last Admin: 03/20/18 10:26 Dose: 0.25 mcg Diphenhydramine HCl (Benadryl) 25 mg PO DAILY [facility] Last Admin: 03/20/18 10:26 Dose: 25 mg Famotidine (Pepcid) 20 mg PO DAILY [facility] Last Admin: 03/20/18 10:26 Dose: 20 mg Ferrous Sulfate (Feosol) 325 mg PO DAILY [facility] Last Admin: 03/20/18 10:26 Dose: 325 mg Finasteride (Proscar) 5 mg PO DAILY [facility] Last Admin: 03/20/18 10:26 Dose: 5 mg Hydralazine HCl (Apresoline) 100 mg PO Q8 [facility] Last Admin: 03/21/18 05:53 Dose: 100 mg Insulin Human Regular (Novolin R) 0 unit SC [facility] PRN Reason: Protocol Last Admin: 03/21/18 07:45 Dose: Not Given Metoprolol Succinate (Toprol Xl) 50 mg PO BID [facility] Last Admin: 03/20/18 17:38 Dose: 50 mg Rosuvastatin Calcium (Crestor) 5 mg PO HS [facility] Last Admin: 03/20/18 21:17 Dose: 5 mg Sevelamer Carbonate (Renvela) 800 mg PO TIDCC [facility] Last Admin: 03/21/18 08:24 Dose: 800 mg - Labs Labs: 03/18/18 06:28 03/18/18 06:28 PT 12.1 SECONDS (9.7-12.2) 03/14/18 16:25 INR 1.1 03/14/18 16:25 APTT 34 SECONDS (21-34) 03/14/18 16:25 Assessment and Plan (1) Dysarthria Status: Acute (2) Slurred speech Status: Acute (3) CKD (chronic kidney disease) Status: Acute (4) ESRD needing dialysis Status: Acute (5) Hypertension Status: Chronic
[2018-03-21] MEDS: Metoprolol Succinate 50 mg XL Tab PO SCH ×2 (09:04→18:51)
--- NOTE | 2018-03-21 09:44 | PN ---
DATE: LOCATION: 650, bed B. SUBJECTIVE: This is a 72 years old male seen and examined in rounds without significant clinical changes or reported active bleeding with reported less oral intake, somewhat more oriented and alert. No reported chest pain, palpitation, dizziness or significant shortness of breath, but mild dyspepsia and occasional nausea on and off. No reported active bleeding. Most recent lab results showed blood glucose level of 97, rest of the lab results still pending. PHYSICAL EXAMINATION: GENERAL: A 72 years old male. VITAL SIGNS: Afebrile with pulse of 82, respiratory rate 20 to 22, blood pressure of 162/74. HEENT: Showed pale dry oral mucous membrane. Nonicteric sclerae. LUNGS: Few scattered crepitation. Decreased air entry at bases. HEART: Positive S1 and S2. ABDOMEN: Soft with mild generalized tenderness. No mass or organomegaly. No rebound tenderness or guarding. EXTREMITIES: Without significant clubbing or cyanosis but lower extremities edematous changes. NEUROLOGIC: No reported new neurological deficits, sensory or motor. Peripheral pulses are decreased bilaterally. No focal deficits reported recently. IMPRESSION: 1. Peripheral vascular disease by history. 2. Reported history of cardiac arrest, cardiac arrhythmia status post pacemaker insertion, by history. 3. Questionable recent history of transient ischemic attack. 4. Known history of hypertension, hyperlipidemia, end-stage renal disease on hemodialysis. 5. Poorly controlled diabetes mellitus. 6. Anemia secondary to above, mild. SUGGESTIONS: 1. Continue current management. 2. The patient may need sectional abdominal and pelvic CAT scan. 3. Full Cardiology reevaluation. 4. Further recommendation to follow. Frank Chamorro MD
--- NOTE | 2018-03-21 12:03 | CP.PCM.PN ---
Subjective - Date & Time of Evaluation Date of Evaluation: 03/21/18 Time of Evaluation: 12:03 - Subjective Subjective: pt is seen and examined, follow up consult is dictated #[id number] for hd today Objective - Vital Signs/Intake and Output Vital Signs (last 24 hours): Temp Pulse Resp BP Pulse Ox 98.4 F 79 20 165/77 H 96 03/21/18 08:28 03/21/18 08:28 03/21/18 08:28 03/21/18 08:28 03/21/18 08:28 Intake and Output: 03/21/18 03/21/18 06:59 18:59 Intake Total 120 Balance 120 - Medications Medications: Current Medications Amlodipine Besylate (Norvasc) 10 mg PO DAILY [facility] Last Admin: 03/21/18 09:03 Dose: 10 mg Aspirin (Aspirin) 325 mg PO DAILY [facility] Last Admin: 03/21/18 09:03 Dose: 325 mg Calcitriol (Rocaltrol) 0.25 mcg PO DAILY [facility] Last Admin: 03/21/18 09:03 Dose: 0.25 mcg Diphenhydramine HCl (Benadryl) 25 mg PO DAILY [facility] Last Admin: 03/21/18 09:03 Dose: 25 mg Famotidine (Pepcid) 20 mg PO DAILY [facility] Last Admin: 03/21/18 09:04 Dose: 20 mg Ferrous Sulfate (Feosol) 325 mg PO DAILY [facility] Last Admin: 03/21/18 09:03 Dose: 325 mg Finasteride (Proscar) 5 mg PO DAILY [facility] Last Admin: 03/21/18 09:03 Dose: 5 mg Hydralazine HCl (Apresoline) 100 mg PO Q8 [facility] Last Admin: 03/21/18 05:53 Dose: 100 mg Insulin Human Regular (Novolin R) 0 unit SC [facility] PRN Reason: Protocol Last Admin: 03/21/18 07:45 Dose: Not Given Metoprolol Succinate (Toprol Xl) 50 mg PO BID [facility] Last Admin: 03/21/18 09:04 Dose: 50 mg Rosuvastatin Calcium (Crestor) 5 mg PO HS [facility] Last Admin: 03/20/18 21:17 Dose: 5 mg Sevelamer Carbonate (Renvela) 800 mg PO TIDCC [facility] Last Admin: 03/21/18 08:24 Dose: 800 mg - Labs Labs: 03/18/18 06:28 03/18/18 06:28 PT 12.1 SECONDS (9.7-12.2) 03/14/18 16:25 INR 1.1 03/14/18 16:25 APTT 34 SECONDS (21-34) 03/14/18 16:25
--- NOTE | 2018-03-21 15:54 | CP.PCM.PN ---
Subjective - Date & Time of Evaluation Date of Evaluation: 03/21/18 Time of Evaluation: 10:40 - Subjective Subjective: Patient seen today, awake, alert, oriented , denies any chest pain, sob, weakness, abdominal pain, N/V/ , No overnight events reported by RN Objective - Vital Signs/Intake and Output Vital Signs (last 24 hours): Temp Pulse Resp BP Pulse Ox 98.4 F 79 20 165/77 H 96 03/21/18 08:28 03/21/18 08:28 03/21/18 08:28 03/21/18 08:28 03/21/18 08:28 Intake and Output: 03/21/18 03/21/18 06:59 18:59 Intake Total 120 Balance 120 - Medications Medications: Current Medications Amlodipine Besylate (Norvasc) 10 mg PO DAILY [facility] Last Admin: 03/21/18 09:03 Dose: 10 mg Aspirin (Aspirin) 325 mg PO DAILY [facility] Last Admin: 03/21/18 09:03 Dose: 325 mg Calcitriol (Rocaltrol) 0.25 mcg PO DAILY [facility] Last Admin: 03/21/18 09:03 Dose: 0.25 mcg Diphenhydramine HCl (Benadryl) 25 mg PO DAILY [facility] Last Admin: 03/21/18 09:03 Dose: 25 mg Famotidine (Pepcid) 20 mg PO DAILY [facility] Last Admin: 03/21/18 09:04 Dose: 20 mg Ferrous Sulfate (Feosol) 325 mg PO DAILY [facility] Last Admin: 03/21/18 09:03 Dose: 325 mg Finasteride (Proscar) 5 mg PO DAILY [facility] Last Admin: 03/21/18 09:03 Dose: 5 mg Hydralazine HCl (Apresoline) 100 mg PO Q8 [facility] Last Admin: 03/21/18 15:35 Dose: 100 mg Insulin Human Regular (Novolin R) 0 unit SC ACHS [facility] PRN Reason: Protocol Last Admin: 03/21/18 11:30 Dose: Not Given Metoprolol Succinate (Toprol Xl) 50 mg PO BID [facility] Last Admin: 03/21/18 09:04 Dose: 50 mg Rosuvastatin Calcium (Crestor) 5 mg PO HS [facility] Last Admin: 03/20/18 21:17 Dose: 5 mg Sevelamer Carbonate (Renvela) 800 mg PO TIDCC [facility] Last Admin: 03/21/18 08:24 Dose: 800 mg - Labs Labs: 03/18/18 06:28 03/18/18 06:28 PT 12.1 SECONDS (9.7-12.2) 03/14/18 16:25 INR 1.1 03/14/18 16:25 APTT 34 SECONDS (21-34) 03/14/18 16:25 - Constitutional Appears: Well, No Acute Distress - Respiratory Exam Respiratory Exam: Clear to Ausculation Bilateral, NORMAL BREATHING PATTERN - Cardiovascular Exam Cardiovascular Exam: REGULAR RHYTHM, +S1, +S2 - Neurological Exam Neurological Exam: Alert, Awake, Oriented x3 Assessment and Plan - Assessment and Plan (Free Text) Assessment: A/P 72 y/o male with history of ESRD on hemodialysis T, Thurs, Sat , HTN, admitted with slurred speech/TIA symptoms resolved Neurology seen and cleared patient for discharge Discussed with patient regarding [facility] vs home PT , patient agreed for rehab at [facility] D/W Dr. Israel, stable for discharge to [facility] today and Dr. Israel will follow the patient at [facility]
[2018-03-21 18:47] VITALS: BP 149/70; RESP 20; TEMP 97.5; O2SAT 98
[2018-03-21 19:21] VITALS: PULSE 86
--- NOTE | 2018-03-22 00:11 | CP.PCM.DIS ---
Provider - Provider Date of Admission: 03/14/18 16:57 Attending physician: Emilio Israel MD Time Spent in preparation of Discharge (in minutes): 45 Hospital Course - Lab Results Lab Results: Most Recent Lab Values WBC 4.9 K/uL (4.8-10.8) 03/18/18 06:28 RBC 3.81 Mil/uL (4.40-5.90) L 03/18/18 06:28 Hgb 12.7 g/dL (12.0-18.0) 03/18/18 06:28 Hct 37.1 % (35.0-51.0) 03/18/18 06:28 MCV 97.3 fL (80.0-94.0) H 03/18/18 06:28 MCH 33.3 pg (27.0-31.0) H 03/18/18 06:28 MCHC 34.3 g/dL (33.0-37.0) 03/18/18 06:28 RDW 14.9 % (11.5-14.5) H 03/18/18 06:28 Plt Count 142 K/uL (130-400) 03/18/18 06:28 MPV 9.4 fL (7.2-11.7) 03/18/18 06:28 Neut % (Auto) 62.5 % (50.0-75.0) 03/17/18 07:41 Lymph % (Auto) 19.2 % (20.0-40.0) L 03/17/18 07:41 Sherman % (Auto) 14.1 % (0.0-10.0) H 03/17/18 07:41 Eos % (Auto) 3.5 % (0.0-4.0) 03/17/18 07:41 Baso % (Auto) 0.7 % (0.0-2.0) 03/17/18 07:41 Neut # (Auto) 2.9 K/uL (1.8-7.0) 03/17/18 07:41 Lymph # (Auto) 0.9 K/uL (1.0-4.3) L 03/17/18 07:41 Sherman # (Auto) 0.6 K/uL (0.0-0.8) 03/17/18 07:41 Eos # (Auto) 0.2 K/uL (0.0-0.7) 03/17/18 07:41 Baso # (Auto) 0.0 K/uL (0.0-0.2) 03/17/18 07:41 PT 12.1 SECONDS (9.7-12.2) 03/14/18 16:25 INR 1.1 03/14/18 16:25 APTT 34 SECONDS (21-34) 03/14/18 16:25 Sodium 136 mmol/L (132-148) 03/18/18 06:28 Potassium 5.0 mmol/L (3.6-5.2) 03/18/18 06:28 Chloride 95 mmol/L (98-107) L 03/18/18 06:28 Carbon Dioxide 24 mmol/L (22-30) 03/18/18 06:28 Anion Gap 21 (10-20) H 03/18/18 06:28 BUN 50 mg/dL (9-20) H 03/18/18 06:28 Creatinine 8.7 mg/dL (0.8-1.5) H* D 03/18/18 06:28 Est GFR ( Amer) 7 03/18/18 06:28 Est GFR (Non-Af Amer) 6 03/18/18 06:28 POC Glucose (mg/dL) 138 mg/dL (65-110) H 03/21/18 18:37 Random Glucose 109 mg/dL (75-110) 03/18/18 06:28 Hemoglobin A1c 6.7 % (4.2-6.5) H 03/14/18 16:25 Calcium 7.6 mg/dl (8.6-10.4) L 03/18/18 06:28 Phosphorus 6.0 mg/dL (2.5-4.5) H 03/16/18 06:30 Total Bilirubin 0.7 mg/dL (0.2-1.3) 03/17/18 07:41 AST 26 U/L (17-59) 03/17/18 07:41 ALT 16 U/L (21-72) L 03/17/18 07:41 Alkaline Phosphatase 121 U/L (38-126) 03/17/18 07:41 Troponin I 0.0500 ng/mL (0.00-0.120) 03/14/18 16:25 Total Protein 8.2 g/dL (6.3-8.3) 03/17/18 07:41 Albumin 3.9 g/dL (3.5-5.0) 03/17/18 07:41 Globulin 4.3 gm/dL (2.2-3.9) H 03/17/18 07:41 Albumin/Globulin Ratio 0.9 (1.0-2.1) L 03/17/18 07:41 Triglycerides 97 mg/dL (0-149) 03/14/18 16:25 Cholesterol 134 mg/dL (0-199) 03/14/18 16:25 LDL Cholesterol Direct 75 mg/dL (0-129) 03/14/18 16:25 HDL Cholesterol 29 mg/dL (30-70) L 03/14/18 16:25 Vitamin B12 786 pg/mL (239-931) 03/20/18 06:20 TSH 3rd Generation 2.49 mIU/L (0.46-4.68) 03/20/18 06:20 PTH Intact Whole Molec 134 pg/mL (14-64) H 03/16/18 06:30 Blood Type B POSITIVE 03/14/18 16:25 Antibody Screen Negative 03/14/18 16:25 - Hospital Course Hospital Course: A/P 72 y/o male with history of ESRD on hemodialysis T, Thurs, Sat , HTN, admitted with slurred speech/TIA symptoms resolved Neurology seen and cleared patient for discharge Discussed with patient regarding [facility] vs home PT , patient agreed for rehab at [facility] , stable for discharge to [facility] today and i will follow the patient at [facility] Discharge Exam - Head Exam Head Exam: NORMAL INSPECTION Discharge Plan - Follow Up Plan Condition: STABLE Disposition: REHAB FACILITY/REHAB UNIT Instructions: Quitting Smoking for Older Adults, Smoking: Not Just Harmful to Your Lungs and Heart, Dialysis Diet , Dysarthria, Transient Ischemic Attack (DC) , Hemodialysis (DC), End Stage Kidney Disease (DC) Referrals: Emilio Israel MD [Staff Provider] -
--- NOTE | 2018-03-22 02:54 | PN ---
DATE: 03/21/2018 FOLLOWUP RENAL CONSULTATION LOCATION: The patient is located in room 650, bed B. REQUESTED BY: Emilio Israel MD REASON FOR FOLLOWUP: End-stage renal disease, for continuation of hemodialysis. SUBJECTIVE: Mr. Richards is a 72 years old elderly -Israeli male with a past medical history significant for longstanding hypertension, diabetes, end-stage renal disease, diverticulitis, status post BKA, status post pacemaker placement who was admitted with chief complaints of aphasia and tremors and rule out TIA. The patient is feeling much better, not in acute distress. Denies any headache or dizziness. Denies any chest pain or palpitation. Denies any fever or cough. No abdominal pain. No nausea, vomiting or diarrhea. The patient is awaiting for the subacute rehab placement. The patient is scheduled for hemodialysis today. PHYSICAL EXAMINATION: VITAL SIGNS: As follows. Blood pressure 165/82, pulse 82, respiration 19, temperature 97.5, saturation 100% post dialysis. Weight 85.9 kg. GENERAL: Mr. Richards is 72 years elderly male, moderately built, moderately nourished, not in distress. HEENT: Pupils are normal and reactive to light and accommodation. Conjunctivae pink. Sclerae anicteric. Tongue is moist. Trachea is midline. LUNGS: Symmetric on both sides. Bilateral breath sounds present. Clear to auscultation. CVS: [place] at the fifth intercostal space, midclavicular line. S1, S2 audible. No murmur or gallop. ABDOMEN: Normal in appearance, soft, tympanic. No guarding. No rigidity. No hepatosplenomegaly. 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 Nonfocal neuro examination. Cranial nerves II-XII grossly intact. Sensory and motor system is within normal limits. EXTREMITIES: No cyanosis, no clubbing, no edema on the right side. Status post left BKA. MEDICATIONS: His current medications include as follows: Tylenol two tablets p.o. every 6 hours p.r.n., lactulose 20 g p.o. at bedtime, hydralazine 100 mg p.o. every 8 hours, amlodipine 10 mg daily, Renvela 800 mg p.o. t.i.d., Crestor 5 mg at bedtime, metoprolol 50 mg p.o. b.i.d., Proscar 5 mg daily, ferrous sulfate 325 mg p.o. daily, Pepcid 20 mg p.o. daily, Benadryl 25 mg p.o. daily, Rocaltrol 0.25 mcg p.o. daily, aspirin 325 mg p.o. daily. LABORATORY DATA: No new labs are available. Accu-Chek is 97 this morning. Accu-Cheks as of 03/20/2018 are 238, 83, and 208. ASSESSMENT AND PLAN: In summary, Mr. Richards is 72 years elderly -Israeli male with a history of hypertension, diabetes, end-stage renal disease, diverticulitis, status post below-knee amputation of left side, status post pacemaker placement who was admitted after referred from the dialysis unit with aphasia and tremors post dialysis. 1. End-stage renal disease. Continue hemodialysis three times a week on Tuesday, , Tuesday. 2. Hypertension. Blood pressure is stable, improving. Continue hydralazine, Norvasc and metoprolol and also advised low-sodium diet. 3. Diabetes. Sugars are under control. 4. Rule out transient ischemic attack. Continue to follow with neurology. The patient is awaiting for subacute rehab acceptance. The patient is scheduled for hemodialysis this evening. The patient underwent hemodialysis and had ultrafiltration of about 2.5 L this evening. We will follow with you. Thank you for allowing me to participate in your patient's care. Blanca Thakkar MD
== END 2018-03-21 21:30 | DRG 69 ==
LOC: C.ER 15:29 → C.9E 16:57 → C.6T 20:53
PROVIDERS: ADMIT Internal Medicine; ATTEND Internal Medicine
PROC: 5A1D70Z Performance of Urinary Filtration, Intermittent, Less than 6 Hours Per Day (ICD-10-PCS; principal; 2018-03-16)
DX: G45.9 Transient cerebral ischemic attack, unspecified (principal); N18.6 End stage renal disease; I12.0 Hypertensive chronic kidney disease with stage 5 chronic kidney disease or end stage renal disease; K25.3 Acute gastric ulcer without hemorrhage or perforation; R47.01 Aphasia; E11.22 Type 2 diabetes mellitus with diabetic chronic kidney disease; E11.51 Type 2 diabetes mellitus with diabetic peripheral angiopathy without gangrene; E11.65 Type 2 diabetes mellitus with hyperglycemia; E78.00 Pure hypercholesterolemia, unspecified; D64.9 Anemia, unspecified; Z99.2 Dependence on renal dialysis; F17.210 Nicotine dependence, cigarettes, uncomplicated; R25.1 Tremor, unspecified; Z95.0 Presence of cardiac pacemaker; Z79.4 Long term (current) use of insulin

== ENCOUNTER 2018-06-24 22:58 | Inpatient (IN) | payer MEDICARE, BC ==
[2018-06-24 22:59] VITALS: BMI 25.3
[2018-06-24 23:34] LABS: BASO % 0.6 % (0.0-2.0); EOS # 0.2 K/uL (0.0-0.7); EOS % 2.7 % (0.0-4.0); HEMOGLOBIN 8.9 g/dL (12.0-18.0); LYMPH # 0.9 K/uL (1.0-4.3); LYMPH % 13.5 % (20.0-40.0); MEAN CELL VOLUME 93.2 fL (80.0-94.0); MEAN CORPUSCULAR HEMOGLOBIN 31.1 pg (27.0-31.0); MEAN CORPUSCULAR HGB CONC 33.4 g/dL (33.0-37.0); MEAN PLATELET VOLUME 8.1 fL (7.2-11.7); MONO # 0.6 K/uL (0.0-0.8); MONO % 9.6 % (0.0-10.0); NEUT # 4.7 K/uL (1.8-7.0); NEUT % 73.6 % (50.0-75.0); RBC 2.86 Mil/uL (4.40-5.90); RED CELL DISTRIBUTION WIDTH 14.2 % (11.5-14.5); WHITE BLOOD COUNT 6.4 K/uL (4.8-10.8)
[2018-06-24 23:42] LABS: INR 1.2; PROTHROMBIN TIME 12.9 SECONDS (9.7-12.2)
[2018-06-24 23:47] LABS: ALB/GLOB RATIO 1.1 (1.0-2.1); ALBUMIN 3.8 g/dL (3.5-5.0); CALCIUM 8.4 mg/dl (8.6-10.4)
[2018-06-24 23:58] LABS: TROPONIN I 0.015 ng/mL (0.00-0.120)
--- NOTE | 2018-06-25 00:02 | C.PDOC ---
History Of Present Illness 73-year-old year old male is sent to the ED from [facility] for evaluation of bright red blood per rectum. Patient denies pain or history of GI bleed. Additional history limited secondary to patient's history of Dementia. Time Seen by Provider: 06/24/18 23:08 Chief Complaint (Nursing): Abdominal Pain History Per: Patient History/Exam Limitations: other (dementia ) Onset/Duration Of Symptoms: Hrs Current Symptoms Are (Timing): Still Present Quality Of Discomfort: denies: "Pain" Additional History Per: Patient, Assisted Past Medical History Reviewed: Historical Data, Nursing Documentation, Vital Signs Vital Signs: Last Vital Signs Temp 97.8 F 06/24/18 23:11 Pulse 70 06/24/18 23:11 Resp 16 06/24/18 23:11 BP 105/51 L 06/24/18 23:11 Pulse Ox 100 06/25/18 00:34 - Medical History PMH: HTN, Hypercholesterolemia, End Stage Renal Disease, Chronic Kidney Disease Denies: Alzheimer's Disease, Peripheral Edema Surgical History: Pacemaker (12/17) - [facility] Procedures (03/14/18) BYPASS LEFT POPLITEAL ARTERY TO FOOT ARTERY, OPEN APPROACH (12/27/15) DETACHMENT AT LEFT 2ND TOE, MID, OPEN APPROACH (12/27/15) DETACHMENT AT LEFT 5TH TOE, COMPLETE, OPEN APPROACH (12/27/15) DETACHMENT AT LEFT LOWER LEG, HIGH, OPEN APPROACH (12/13/16) DIALYSIS ARTERIOVENOSTOM (04/08/14) EXCISION OF DESCENDING COLON, ENDO, DIAGN (12/22/17) EXCISION OF LEFT FOOT SKIN, EXTERNAL APPROACH (12/27/15) EXCISION OF LEFT GREATER SAPHENOUS VEIN, OPEN APPROACH (12/27/15) EXCISION OF STOMACH, PYLORUS, ENDO, DIAGN (12/22/17) FLUOROSCOPY OF LEFT HEART USING LOW OSMOLAR CONTRAST (12/27/15) FLUOROSCOPY OF MULT COR ART USING L OSM CONTRAST (12/27/15) HEMODIALYSIS (04/08/14) INSERTION OF ENDOTRACHEAL AIRWAY INTO TRACHEA, VIA OPENING (12/13/16) INSERTION OF INFUSION DEV INTO SUP VENA CAVA, PERC APPROACH (12/27/15) INSERTION OF INFUSION DEVICE INTO R ATRIUM, PERC APPROACH (08/20/15) MEASURE OF CARDIAC SAMPL & PRESSURE, L HEART, PERC APPROACH (12/27/15) PERFORMANCE OF CARDIAC OUTPUT, SINGLE, MANUAL (12/13/16) PERFORMANCE OF URINARY FILTRATION, MULTIPLE (12/13/16) PLAIN RADIOGRAPHY OF AORTA, BI LE ART USING L OSM CONTRAST (12/27/15) RESPIRATORY VENTILATION, LESS THAN 24 CONSECUTIVE HOURS (12/13/16) TRANSFUSE NONAUT RED BLOOD CELLS IN PERIPH VEIN, PERC (12/27/15) ULTRASONOGRAPHY OF SUPERIOR VENA CAVA, GUIDANCE (12/27/15) VENOUS CATHETERIZATION FOR RENAL DIALYSIS (04/08/14) Family History: States: Unknown Family Hx - Social History Hx Tobacco Use: Yes Hx Alcohol Use: (UNKNOWN) Hx Substance Use: (UNKNOWN) - Immunization History Hx Tetanus Toxoid Vaccination: No Hx Influenza Vaccination: Yes Hx Pneumococcal Vaccination: Yes Review Of Systems Review Of Systems: ROS cannot be obtained secondary to pt's inabilty to answer questions. Physical Exam - Physical Exam Appears: Non-toxic, No Acute Distress, Other (elderly demented Black male ) Skin: Normal Color, Warm, Dry Head: Atraumatic, Normacephalic Eye(s): bilateral: Normal Inspection Oral Mucosa: Moist Neck: Supple Chest: Symmetrical, No Deformity, No Tenderness Cardiovascular: Rhythm Regular, No Murmur Respiratory: Normal Breath Sounds, No Rales, No Rhonchi, No Wheezing Gastrointestinal/Abdominal: Soft, No Tenderness, No Guarding, No Rebound Rectal: Other (tender, external hemorrhoid with blood ) Extremity: Normal ROM, Capillary Refill (less than 2 seconds ) Neurological/Psych: Other (arousable to touch and verbal stimuli ) ED Course And Treatment - Laboratory Results Result Diagrams: 06/24/18 23:30 06/24/18 23:30 Lab Interpretation: Abnormal (+ hgb drop from baseline 12, creat is improved from prior 9.8) ECG: Interpreted By Me ECG Rhythm: Sinus Rhythm ECG Interpretation: Normal Rate From EC O2 Sat by Pulse Oximetry: 100 (on RA) Pulse Ox Interpretation: Normal - Radiology CXR: Interpreted by Me CXR Interpretation: Yes: No Acute Disease Progress Note: Bloodwork, urinalysis, CXR, EKG ordered and reviewed. Reevaluation Time: 00:01 Reassessment Condition: Unchanged - Physician Consult Information Outcome Of Conversation: [id number], [id number]: d/w donna Barrera to admit Med/Surg. Defer blood tx for now. Medical Decision Making Medical Decision Making: bleeding hemorroid hgb drop from baseline ? source creat 6.0 IMPROVED from prior ? Disposition Doctor Will See Patient In The: Hospital Counseled Patient/Family Regarding: Studies Performed, Diagnosis - Disposition Disposition: HOSPITALIZED Disposition Time: 00:07 Condition: GOOD - Clinical Impression Clinical Impression: BRBPR (bright red blood per rectum), Bleeding hemorrhoid
[2018-06-25] MEDS: (Novolin R) Insulin Human Regular 100 units/ml vial SC SCH ×4 (08:22→21:19)
--- NOTE | 2018-06-25 09:33 | RAD ---
Date of service: 06/24/2018 PROCEDURE: CHEST RADIOGRAPH, 1 VIEW HISTORY: abd pain COMPARISON: Portable chest 03/14/2018. FINDINGS: LUNGS: Unipolar pacemaker/ AICD again identified. No acute alveolitis bilaterally. PLEURA: No pneumothorax or pleural fluid seen. CARDIOVASCULAR: Normal. OSSEOUS STRUCTURES: No significant abnormalities. VISUALIZED UPPER ABDOMEN: Normal. OTHER FINDINGS: None. IMPRESSION: Pacemaker/AICD reiterated. No acute infiltrate pleural effusion or pneumothorax. No acute cardiovascular changes appreciated.
[2018-06-25] MEDS: Metoprolol Succinate 50 mg XL Tab PO SCH ×2 (09:51→17:47)
[2018-06-25 10:18] LABS: HEMOGLOBIN 8.3 g/dL (12.0-18.0); MEAN CELL VOLUME 93.2 fL (80.0-94.0); MEAN CORPUSCULAR HEMOGLOBIN 31.2 pg (27.0-31.0); MEAN CORPUSCULAR HGB CONC 33.4 g/dL (33.0-37.0); MEAN PLATELET VOLUME 8.7 fL (7.2-11.7); RBC 2.65 Mil/uL (4.40-5.90); RED CELL DISTRIBUTION WIDTH 14.3 % (11.5-14.5); WHITE BLOOD COUNT 6.4 K/uL (4.8-10.8)
[2018-06-25 12:15] LABS: MEAN CELL VOLUME 92.6 fL (80.0-94.0); MEAN CORPUSCULAR HEMOGLOBIN 31.1 pg (27.0-31.0); MEAN CORPUSCULAR HGB CONC 33.6 g/dL (33.0-37.0); MEAN PLATELET VOLUME 8.6 fL (7.2-11.7); RBC 2.58 Mil/uL (4.40-5.90); RED CELL DISTRIBUTION WIDTH 14.3 % (11.5-14.5); WHITE BLOOD COUNT 6.2 K/uL (4.8-10.8)
[2018-06-25 12:27] LABS: INR 1.2; PROTHROMBIN TIME 12.9 SECONDS (9.7-12.2)
--- NOTE | 2018-06-25 14:21 | CP.PCM.CON ---
History of Present Illness - History of Present Illness History of Present Illness: pt is seen and examined, full consult is dictated #[id number] 1. HTn 2. dm 3. ESRD 4. Diverticulosis 5. rectal bleed, r/o diverticular bleed consider GI consult transfuse a sneeded type a nd screen cbc q 6 hrs Past Patient History - Infectious Disease Hx of Infectious Diseases: None - Past Medical History & Family History Past Medical History?: Yes - Past Social History Smoking Status: Former Smoker - CARDIAC Hx Cardiac Disorders: Yes Hx Hypercholesterolemia: Yes Hx Hypertension: Yes Hx Pacemaker: Yes (12/17) Hx Peripheral Edema: No - PULMONARY Hx Respiratory Disorders: No Other/Comment: light smoker - NEUROLOGICAL Hx Neurological Disorder: No - HEENT Hx HEENT Problems: Yes Other/Comment: left eye vision problems - RENAL Hx Chronic Kidney Disease: Yes - ENDOCRINE/METABOLIC Hx Diabetes Mellitus Type 2: Yes - HEMATOLOGICAL/ONCOLOGICAL Hx Blood Transfusions: (UNKNOWN) - INTEGUMENTARY Hx Dermatological Problems: No - MUSCULOSKELETAL/RHEUMATOLOGICAL Hx Falls: No - GASTROINTESTINAL Hx Gastrointestinal Disorders: Yes Hx Diverticulitis: Yes - GENITOURINARY/GYNECOLOGICAL Hx Genitourinary Disorders: No - PSYCHIATRIC Hx Substance Use: No - SURGICAL HISTORY Hx Surgeries: Yes - ANESTHESIA Hx Anesthesia: Yes Hx Anesthesia Reactions: No Hx Malignant Hyperthermia: No Meds Allergies/Adverse Reactions: Allergies Allergy/AdvReac Type Severity Reaction Status Date / Time No Known Allergies Allergy Verified 06/24/18 23:03 - Medications Medications: Current Medications Acetaminophen (Tylenol 325mg Tab) 2 mg PO Q6 PRN PRN Reason: Pain, moderate (4-7) Calcitriol (Rocaltrol) 0.25 mcg PO DAILY [facility] Last Admin: 06/25/18 09:48 Dose: 0.25 mcg Calcium Acetate (Phoslo) 667 mg PO TID [facility] Last Admin: 06/25/18 09:48 Dose: 667 mg Collagenase (Santyl) 0 gm TOP HS [facility] Finasteride (Proscar) 5 mg PO DAILY [facility] Last Admin: 06/25/18 09:48 Dose: 5 mg Hydralazine HCl (Apresoline) 100 mg PO Q8 [facility] Last Admin: 06/25/18 05:53 Dose: 100 mg Insulin Human Regular (Novolin R) 0 unit SC ACHS [facility] PRN Reason: Protocol Last Admin: 06/25/18 12:19 Dose: Not Given Metoprolol Succinate (Toprol Xl) 50 mg PO BID [facility] Last Admin: 06/25/18 09:51 Dose: 50 mg Pantoprazole Sodium (Protonix Inj) 40 mg IVP DAILY [facility] Last Admin: 06/25/18 09:48 Dose: 40 mg Rosuvastatin Calcium (Crestor) 5 mg PO HS [facility] Results - Vital Signs Recent Vital Signs: Last Vital Signs Temp 98.1 F 06/25/18 08:25 Pulse 78 06/25/18 08:25 Resp 20 06/25/18 08:25 BP 117/61 06/25/18 08:25 Pulse Ox 97 06/25/18 08:25 - Labs Result Diagrams: 06/25/18 12:11 06/24/18 23:30 Labs: Laboratory Results - last 24 hr 06/24/18 06/24/18 06/24/18 23:30 23:30 23:30 WBC 6.4 RBC 2.86 L Hgb 8.9 L D Hct 26.6 L MCV 93.2 D MCH 31.1 H MCHC 33.4 RDW 14.2 Plt Count 163 MPV 8.1 Neut % (Auto) 73.6 Lymph % (Auto) 13.5 L Owen % (Auto) 9.6 Eos % (Auto) 2.7 Baso % (Auto) 0.6 Neut # (Auto) 4.7 Lymph # (Auto) 0.9 L Owen # (Auto) 0.6 Eos # (Auto) 0.2 Baso # (Auto) 0.0 PT 12.9 H INR 1.2 APTT 31 Sodium 140 Potassium 5.1 Chloride 99 Carbon Dioxide 27 Anion Gap 19 BUN 30 H Creatinine 6.0 H Est GFR ( Amer) 11 Est GFR (Non-Af Amer) 9 POC Glucose (mg/dL) Random Glucose 189 H Calcium 8.4 L Total Bilirubin 0.5 AST 21 ALT 16 L Alkaline Phosphatase 93 Troponin I 0.0150 NT-Pro-B Natriuret Pep 8930 H Total Protein 7.4 Albumin 3.8 Globulin 3.5 Albumin/Globulin Ratio 1.1 Lipase 227 Alpha Fetoprotein Carcinoembryonic Ag CA 19-9 Antigen Stool Occult Blood Blood Type Antibody Screen 06/24/18 06/25/18 06/25/18 23:33 07:24 09:19 WBC RBC Hgb Hct MCV MCH MCHC RDW Plt Count MPV Neut % (Auto) Lymph % (Auto) Owen % (Auto) Eos % (Auto) Baso % (Auto) Neut # (Auto) Lymph # (Auto) Owen # (Auto) Eos # (Auto) Baso # (Auto) PT INR APTT Sodium Potassium Chloride Carbon Dioxide Anion Gap BUN Creatinine Est GFR ( Amer) Est GFR (Non-Af Amer) POC Glucose (mg/dL) 179 H Random Glucose Calcium Total Bilirubin AST ALT Alkaline Phosphatase Troponin I NT-Pro-B Natriuret Pep Total Protein Albumin Globulin Albumin/Globulin Ratio Lipase Alpha Fetoprotein Carcinoembryonic Ag CA 19-9 Antigen Stool Occult Blood Positive H Blood Type B POSITIVE Antibody Screen Negative 06/25/18 06/25/18 06/25/18 09:19 11:05 12:11 WBC 6.4 6.2 RBC 2.65 L 2.58 L Hgb 8.3 L 8.0 L Hct 24.7 L 23.9 L MCV 93.2 92.6 MCH 31.2 H 31.1 H MCHC 33.4 33.6 RDW 14.3 14.3 Plt Count 156 151 MPV 8.7 8.6 Neut % (Auto) Lymph % (Auto) Owen % (Auto) Eos % (Auto) Baso % (Auto) Neut # (Auto) Lymph # (Auto) Owen # (Auto) Eos # (Auto) Baso # (Auto) PT INR APTT Sodium Potassium Chloride Carbon Dioxide Anion Gap BUN Creatinine Est GFR ( Amer) Est GFR (Non-Af Amer) POC Glucose (mg/dL) 149 H Random Glucose Calcium Total Bilirubin AST ALT Alkaline Phosphatase Troponin I NT-Pro-B Natriuret Pep Total Protein Albumin Globulin Albumin/Globulin Ratio Lipase Alpha Fetoprotein Carcinoembryonic Ag CA 19-9 Antigen Stool Occult Blood Blood Type Antibody Screen 06/25/18 06/25/18 06/25/18 12:11 12:11 12:11 WBC RBC Hgb Hct MCV MCH MCHC RDW Plt Count MPV Neut % (Auto) Lymph % (Auto) Owen % (Auto) Eos % (Auto) Baso % (Auto) Neut # (Auto) Lymph # (Auto) Owen # (Auto) Eos # (Auto) Baso # (Auto) PT 12.9 H INR 1.2 APTT 29 Sodium Potassium Chloride Carbon Dioxide Anion Gap BUN Creatinine Est GFR ( Amer) Est GFR (Non-Af Amer) POC Glucose (mg/dL) Random Glucose Calcium Total Bilirubin AST ALT Alkaline Phosphatase Troponin I NT-Pro-B Natriuret Pep Total Protein Albumin Globulin Albumin/Globulin Ratio Lipase Alpha Fetoprotein 1.1 Carcinoembryonic Ag 3.9 H CA 19-9 Antigen 42.1 H Stool Occult Blood Blood Type Antibody Screen
[2018-06-25] MEDS: Collagenase 250 Units/gm Ointment(30 gm) TOP SCH (22:00)
[2018-06-25] MEDS ORDERED: DiphenhydrAMINE 50 mg/ml Inj IVP STA ×2 (22:35→22:48)
--- NOTE | 2018-06-25 23:26 | CP.PCM.HP ---
Past Patient History - Infectious Disease Hx of Infectious Diseases: None - Past Medical History & Family History Past Medical History?: Yes - Past Social History Smoking Status: Former Smoker - CARDIAC Hx Cardiac Disorders: Yes Hx Hypercholesterolemia: Yes Hx Hypertension: Yes Hx Pacemaker: Yes (12/17) Hx Peripheral Edema: No - PULMONARY Hx Respiratory Disorders: No Other/Comment: light smoker - NEUROLOGICAL Hx Neurological Disorder: No - HEENT Hx HEENT Problems: Yes Other/Comment: left eye vision problems - RENAL Hx Chronic Kidney Disease: Yes - ENDOCRINE/METABOLIC Hx Diabetes Mellitus Type 2: Yes - HEMATOLOGICAL/ONCOLOGICAL Hx Blood Transfusions: (UNKNOWN) - INTEGUMENTARY Hx Dermatological Problems: No - MUSCULOSKELETAL/RHEUMATOLOGICAL Hx Falls: No - GASTROINTESTINAL Hx Gastrointestinal Disorders: Yes Hx Diverticulitis: Yes - GENITOURINARY/GYNECOLOGICAL Hx Genitourinary Disorders: No - PSYCHIATRIC Hx Substance Use: No - SURGICAL HISTORY Hx Surgeries: Yes - ANESTHESIA Hx Anesthesia: Yes Hx Anesthesia Reactions: No Hx Malignant Hyperthermia: No Meds Allergies/Adverse Reactions: Allergies Allergy/AdvReac Type Severity Reaction Status Date / Time No Known Allergies Allergy Verified 06/24/18 23:03 Results - Vital Signs Recent Vital Signs: Last Vital Signs Temp 98.3 F 06/25/18 22:56 Pulse 74 06/25/18 21:34 Resp 20 06/25/18 21:34 BP 139/67 06/25/18 21:34 Pulse Ox 100 06/25/18 15:46 - Labs Result Diagrams: 06/25/18 12:11 06/24/18 23:30 Labs: Laboratory Results - last 24 hr 06/24/18 06/24/18 06/24/18 23:30 23:30 23:30 WBC 6.4 RBC 2.86 L Hgb 8.9 L D Hct 26.6 L MCV 93.2 D MCH 31.1 H MCHC 33.4 RDW 14.2 Plt Count 163 MPV 8.1 Neut % (Auto) 73.6 Lymph % (Auto) 13.5 L Burnet % (Auto) 9.6 Eos % (Auto) 2.7 Baso % (Auto) 0.6 Neut # (Auto) 4.7 Lymph # (Auto) 0.9 L Burnet # (Auto) 0.6 Eos # (Auto) 0.2 Baso # (Auto) 0.0 PT 12.9 H INR 1.2 APTT 31 Sodium 140 Potassium 5.1 Chloride 99 Carbon Dioxide 27 Anion Gap 19 BUN 30 H Creatinine 6.0 H Est GFR ( Amer) 11 Est GFR (Non-Af Amer) 9 POC Glucose (mg/dL) Random Glucose 189 H Calcium 8.4 L Total Bilirubin 0.5 AST 21 ALT 16 L Alkaline Phosphatase 93 Troponin I 0.0150 NT-Pro-B Natriuret Pep 8930 H Total Protein 7.4 Albumin 3.8 Globulin 3.5 Albumin/Globulin Ratio 1.1 Lipase 227 Alpha Fetoprotein Carcinoembryonic Ag CA 19-9 Antigen Stool Occult Blood Blood Type Antibody Screen 06/24/18 06/25/18 06/25/18 23:33 07:24 09:19 WBC RBC Hgb Hct MCV MCH MCHC RDW Plt Count MPV Neut % (Auto) Lymph % (Auto) Burnet % (Auto) Eos % (Auto) Baso % (Auto) Neut # (Auto) Lymph # (Auto) Burnet # (Auto) Eos # (Auto) Baso # (Auto) PT INR APTT Sodium Potassium Chloride Carbon Dioxide Anion Gap BUN Creatinine Est GFR ( Amer) Est GFR (Non-Af Amer) POC Glucose (mg/dL) 179 H Random Glucose Calcium Total Bilirubin AST ALT Alkaline Phosphatase Troponin I NT-Pro-B Natriuret Pep Total Protein Albumin Globulin Albumin/Globulin Ratio Lipase Alpha Fetoprotein Carcinoembryonic Ag CA 19-9 Antigen Stool Occult Blood Positive H Blood Type B POSITIVE Antibody Screen Negative 06/25/18 06/25/18 06/25/18 09:19 11:05 12:11 WBC 6.4 6.2 RBC 2.65 L 2.58 L Hgb 8.3 L 8.0 L Hct 24.7 L 23.9 L MCV 93.2 92.6 MCH 31.2 H 31.1 H MCHC 33.4 33.6 RDW 14.3 14.3 Plt Count 156 151 MPV 8.7 8.6 Neut % (Auto) Lymph % (Auto) Burnet % (Auto) Eos % (Auto) Baso % (Auto) Neut # (Auto) Lymph # (Auto) Burnet # (Auto) Eos # (Auto) Baso # (Auto) PT INR APTT Sodium Potassium Chloride Carbon Dioxide Anion Gap BUN Creatinine Est GFR ( Amer) Est GFR (Non-Af Amer) POC Glucose (mg/dL) 149 H Random Glucose Calcium Total Bilirubin AST ALT Alkaline Phosphatase Troponin I NT-Pro-B Natriuret Pep Total Protein Albumin Globulin Albumin/Globulin Ratio Lipase Alpha Fetoprotein Carcinoembryonic Ag CA 19-9 Antigen Stool Occult Blood Blood Type Antibody Screen 06/25/18 06/25/18 06/25/18 12:11 12:11 12:11 WBC RBC Hgb Hct MCV MCH MCHC RDW Plt Count MPV Neut % (Auto) Lymph % (Auto) Burnet % (Auto) Eos % (Auto) Baso % (Auto) Neut # (Auto) Lymph # (Auto) Burnet # (Auto) Eos # (Auto) Baso # (Auto) PT 12.9 H INR 1.2 APTT 29 Sodium Potassium Chloride Carbon Dioxide Anion Gap BUN Creatinine Est GFR ( Amer) Est GFR (Non-Af Amer) POC Glucose (mg/dL) Random Glucose Calcium Total Bilirubin AST ALT Alkaline Phosphatase Troponin I NT-Pro-B Natriuret Pep Total Protein Albumin Globulin Albumin/Globulin Ratio Lipase Alpha Fetoprotein 1.1 Carcinoembryonic Ag 3.9 H CA 19-9 Antigen 42.1 H Stool Occult Blood Blood Type Antibody Screen 06/25/18 06/25/18 16:10 21:14 WBC RBC Hgb Hct MCV MCH MCHC RDW Plt Count MPV Neut % (Auto) Lymph % (Auto) Burnet % (Auto) Eos % (Auto) Baso % (Auto) Neut # (Auto) Lymph # (Auto) Burnet # (Auto) Eos # (Auto) Baso # (Auto) PT INR APTT Sodium Potassium Chloride Carbon Dioxide Anion Gap BUN Creatinine Est GFR ( Amer) Est GFR (Non-Af Amer) POC Glucose (mg/dL) 225 H 113 H Random Glucose Calcium Total Bilirubin AST ALT Alkaline Phosphatase Troponin I NT-Pro-B Natriuret Pep Total Protein Albumin Globulin Albumin/Globulin Ratio Lipase Alpha Fetoprotein Carcinoembryonic Ag CA 19-9 Antigen Stool Occult Blood Blood Type Antibody Screen
[2018-06-26 07:26] LABS: HEMOGLOBIN 8.6 g/dL (12.0-18.0); MEAN CELL VOLUME 91.3 fL (80.0-94.0); MEAN CORPUSCULAR HEMOGLOBIN 30.9 pg (27.0-31.0); MEAN CORPUSCULAR HGB CONC 33.9 g/dL (33.0-37.0); MEAN PLATELET VOLUME 8.4 fL (7.2-11.7); RBC 2.8 Mil/uL (4.40-5.90); RED CELL DISTRIBUTION WIDTH 15.2 % (11.5-14.5); WHITE BLOOD COUNT 5.2 K/uL (4.8-10.8)
[2018-06-26] MEDS: (Novolin R) Insulin Human Regular 100 units/ml vial SC SCH ×3 (07:40→16:28)
--- NOTE | 2018-06-26 07:43 | CON ---
Copied To: Blanca Thakkar MD Attending MD: Blanca Thakkar MD DATE: 06/25/2018 FOLLOWUP RENAL CONSULTATION LOCATION: The patient is located in room 369 and bed B. REQUESTED BY: Emilio Israel MD REASON FOR CONSULTATION: End-stage renal disease, on hemodialysis three times a week; Tuesday, , and Tuesday and rectal bleed and anemia. HISTORY OF PRESENT ILLNESS: Mr. Richards is a 73-year-old elderly very pleasant male with a past medical history significant for longstanding hypertension, diabetes, hyperlipidemia, end-stage renal disease, status post left BKA, peripheral vascular disease, status post angioplasty of the right leg and status post pacemaker placement, history of C. difficile, and diverticulosis, multiple admissions to the hospital, who is recently admitted to the subacute rehab after prolonged multiple admissions to the hospital for generalized weakness, and the patient underwent hemodialysis yesterday without any difficulty. After went back to the room, the patient had abdominal discomfort and moved his bowels around 09:00 p.m. He claims he moved his bowels three times which was bloody and fresh blood, and the patient notified the nurse and subsequently the patient was transferred to the [facility]. The patient is admitted for anemia and rectal bleed. The patient is not in acute distress. Denies any chest pain or palpitation. Denies any fever or cough. Denies any abdominal pain. He claims he had another bowel movement in the emergency room last night. No chest pain. No palpitation. The patient did have nausea in the [facility] prior to the bowel movement. PAST MEDICAL HISTORY: Significant for longstanding hypertension, diabetes, hyperlipidemia, end-stage renal disease, on hemodialysis three times a week, and peripheral vascular disease. PAST SURGICAL HISTORY: Status post left upper extremity AV graft placement, status post hernia repair, also status post left BKA, status post pacemaker placement on the right subclavian region, status post angiogram and angioplasties mainly on the right leg. ALLERGIES NO KNOWN DRUG ALLERGIES. SOCIAL HISTORY: The patient is a smoker. Advised to quit smoking and was trying to quit smoking as per the patient. Denies any alcohol. Denies any drugs. PERSONAL HISTORY: He is a . His of lymphoma. He has a good family support and both parents . REVIEW OF SYSTEMS: Significant for rectal bleed and abdominal discomfort and nausea. All other review of systems are reviewed and negative. PHYSICAL EXAMINATION: VITAL SIGNS: As follows: Blood pressure 117/61, pulse 78, respiration 20, and temperature 97. Height 6 feet 1 inch, weight is 205 pounds. GENERAL: Mr. Richards is a 73-year-old elderly male, moderately built, moderately nourished, not in distress. HEENT: Pupils are normal and reactive to light and accommodation. Conjunctivae slightly pale. Sclerae anicteric. Tongue is moist. Trachea is midline. LUNGS: Symmetric on both sides. Bilateral breath sounds present. Clear to auscultation. CARDIOVASCULAR SYSTEM: S1 and S2 audible. No murmur or gallop. ABDOMEN: Slightly distended, soft, and tympanitic. No guarding. No rigidity. No hepatosplenomegaly. CENTRAL VENOUS SYSTEM: The patient is alert, awake, and oriented x3. Nonfocal neuro examination. Cranial nerves II-XII grossly intact. Sensory and motor system is within normal limits. EXTREMITIES: No cyanosis, no clubbing, and no edema on the right leg, status post left BKA. The patient has a small ulcer on the right lower extremity. CURRENT MEDICATIONS: Include as follows: Hydralazine 100 mg p.o. every 8 hours, Crestor 5 mg at bedtime, Novolin R for sliding scale, calcium acetate 667 mg p.o. t.i.d., Proscar 5 mg p.o. daily, Protonix 40 mg daily, Rocaltrol 0.25 mcg p.o. daily, Santyl for topical, metoprolol 50 mg p.o. b.i.d., and Tylenol. LABORATORY DATA: His recent hemoglobin on 06/10/2018; hemoglobin about 10.2 to 10.6 from the [facility]. His current laboratory data as of 06/24/2018 on admission: WBC 6.4, hemoglobin 8.9, hematocrit is 26.6, and platelets 163. PT 12.9, PTT 31. Sodium 140, potassium 5.1, chloride 99, CO2 of 27, BUN 30, creatinine 6, glucose 189, and calcium 8.4. Total bili 0.3, AST 21, ALT 16, alkaline phosphatase 93. Troponin 0.015 and proBNP 8930. Total protein 7.4 and albumin is 3.4 and lipase is 227. Stool for occult blood is positive. His lipase is 227. Other laboratory data as of 06/25/2018: Alpha-fetoprotein 1.1, CEA 3.9, and CA 19-9 is 42.1. Other laboratory data as of 06/25/2018: WBC 6.4, hemoglobin 8.3, hematocrit is 156. Repeat CBC: WBC 6.2, hemoglobin 8, hematocrit is 23.9, and platelets 151. PT 12.9 and PTT 29. ASSESSMENT: In summary, Mr. Richards is a 73-year-old elderly male with a history of hypertension, diabetes, hyperlipidemia, end-stage renal disease, peripheral vascular disease, status post left below-knee amputation, status post angioplasty of the right lower extremity, and history of diverticulosis and Clostridium difficile colitis in the past, was admitted with rectal bleed. His CT of the abdomen and pelvis report as of 02/10/2018; distal descending colon, sigmoid colon diverticulitis without significant change. No free air or adjacent fluid collection. 1. End-stage renal disease. Continue hemodialysis three times a week; Tuesday, , and Tuesday. 2. Anemia secondary to rectal bleed. 3. Rectal bleed, most likely secondary to diverticular bleed, cannot rule out diverticulitis. 4. Hypertension. 5. Diabetes. PLAN: Continue to monitor CBC every 6 hours and transfuse as needed if hemoglobin drops below 7; type and screen. Follow up with GI for possible colonoscopy. We will follow with you. Thank you for allowing me to participate in your patient's care. Blanca Thakkar MD
--- NOTE | 2018-06-26 08:04 | HP ---
Copied To: Emilio Israel MD Attending MD: Emilio Israel MD CHIEF COMPLAINT: Rectal bleed. 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 Currently, he is in [facility]. He is getting physiotherapy after he was discharged from [facility] before for a prior hospitalization. Presenting in his usual state of health, he is on physiotherapy. He is dependent on [facility] staff for activities of daily living, and he uses his left leg prosthesis and a walker to ambulate, and he has been getting physiotherapy in [facility], and on the night of admission, he developed bright red blood per rectum. He had two episode, and he was transferred to the emergency room, and he is hospitalized. He denies any fever, chills, rigors. He denies any cough, sore throat, running nose. He denies history of nausea, vomiting, or diarrhea. No history of polyuria, polydipsia, polyphagia. PAST MEDICAL HISTORY: CKD, diabetes, hypertension, congestive heart failure, hyperlipidemia, osteoarthritis, peripheral vascular disease with left BKA and right leg ulcer with angioplasty. SOCIAL HISTORY: Ex-smoker, ex-Et[employer] user. CURRENT MEDICATIONS: At [facility], he is on Zofran, Tylenol, Toprol XL, Santyl ointment, PhosLo, Pepcid, Norvasc, lactulose, sliding scale on , hydralazine, Crestor, Proscar, Feosol, Rocaltrol, Benadryl, aspirin. PHYSICAL EXAMINATION: GENERAL: An elderly male, in no acute distress. He had another episode of rectal bleeding this morning. VITAL SIGNS: Blood pressure 139/67, pulse 74, respiratory rate 20, temperature 98.1. SKIN: Pale. No bruises. No purpura. No petechiae. No ecchymosis. HEENT: Atraumatic, normocephalic. Positive pallor. Negative jaundice. Extraocular movements are intact. NECK: Supple. No JVD. No lymph nodes. No thyromegaly. No carotid bruits. CHEST WALL: Bilateral symmetrical expansion. No deformity. LUNGS: Bilaterally clear. No rales. No rhonchi. CVS: S1 and S2 plus S3 positive. ABDOMEN: Soft. Nontender. Bowel sounds are positive. RECTAL: Enlarged prostate. GENITAL: Normal. EXTREMITIES: No clubbing, cyanosis, or edema. There is left BKA with stump clean; and right leg, he has ulcer which is healing with good capillary refill with poor dorsalis pedis and posterior tibial artery pulses. CENTRAL NERVOUS SYSTEM: Awake, alert, and oriented x3. Cranial nerves II through XII are normal. Power 5/5 x4. Plantars are downgoing on the right side; and there is decreased sensation in the right foot. ASSESSMENT: 1. Gastrointestinal bleed, most likely to diverticulosis, could be angiodysplasia, could be colon neoplasm. 2. Chronic kidney disease, on hemodialysis. 3. Type 2 diabetes. 4. Hypertension. PLAN: Admit. Detailed orders written. Seen and examined. Emilio Israel MD
[2018-06-26] MEDS: Metoprolol Succinate 50 mg XL Tab PO SCH ×2 (09:44→17:40)
[2018-06-26] MEDS ORDERED: Propofol 10 mg/ml Inj (20 ML) ONE (09:51)
[2018-06-26] MEDS ORDERED: Peg-Electrolyte Oral Soln 4L (Golytely) PO ONE (13:00)
[2018-06-26] MEDS ORDERED: Bisacodyl 5mg EC Tab PO ONE (17:00)
--- NOTE | 2018-06-26 18:44 | CP.PCM.PN ---
Subjective - Date & Time of Evaluation Date of Evaluation: 06/26/18 Time of Evaluation: 18:44 - Subjective Subjective: pt is seen and examined, follow up consult is dictated #[id number] Objective - Vital Signs/Intake and Output Vital Signs (last 24 hours): Temp Pulse Resp BP Pulse Ox 97.8 F 66 20 148/70 100 06/26/18 16:00 06/26/18 16:00 06/26/18 16:00 06/26/18 16:00 06/26/18 16:00 Intake and Output: 06/26/18 06/26/18 06:59 18:59 Intake Total 930 50 Balance 930 50 - Medications Medications: Current Medications Acetaminophen (Tylenol 325mg Tab) 2 mg PO Q6 PRN PRN Reason: Pain, moderate (4-7) Calcitriol (Rocaltrol) 0.25 mcg PO DAILY [facility] Last Admin: 06/26/18 09:44 Dose: Not Given Calcium Acetate (Phoslo) 667 mg PO TID [facility] Last Admin: 06/26/18 17:39 Dose: 667 mg Collagenase (Santyl) 0 gm TOP HS [facility] Last Admin: 06/25/18 22:00 Dose: 1 applic Finasteride (Proscar) 5 mg PO DAILY [facility] Last Admin: 06/26/18 09:43 Dose: Not Given Fluconazole (Diflucan) 50 mg PO DAILY [facility] PRN Reason: Protocol Last Admin: 06/26/18 11:35 Dose: 50 mg Hydralazine HCl (Apresoline) 100 mg PO Q8 [facility] Last Admin: 06/26/18 13:51 Dose: 100 mg Insulin Human Regular (Novolin R) 0 unit SC ACHS [facility] PRN Reason: Protocol Last Admin: 06/26/18 16:28 Dose: Not Given Metoclopramide HCl (Reglan) 5 mg IVP Q6H [facility] Last Admin: 06/26/18 16:00 Dose: 5 mg Metoprolol Succinate (Toprol Xl) 50 mg PO BID [facility] Last Admin: 06/26/18 17:40 Dose: 50 mg Pantoprazole Sodium (Protonix Inj) 40 mg IVP DAILY [facility] Last Admin: 06/26/18 09:44 Dose: Not Given Rosuvastatin Calcium (Crestor) 5 mg PO HS [facility] Last Admin: 06/25/18 21:17 Dose: 5 mg - Labs Labs: 08/27/18 07:15 06/24/18 23:30 PT 12.9 SECONDS (9.7-12.2) H 06/25/18 12:11 INR 1.2 06/25/18 12:11 APTT 29 SECONDS (21-34) 06/25/18 12:11
[2018-06-26] MEDS: Collagenase 250 Units/gm Ointment(30 gm) TOP SCH (21:39)
--- NOTE | 2018-06-26 22:19 | CP.PCM.PN ---
Objective - Vital Signs/Intake and Output Vital Signs (last 24 hours): Temp Pulse Resp BP Pulse Ox 97.8 F 66 20 148/70 100 06/26/18 16:00 06/26/18 16:00 06/26/18 16:00 06/26/18 16:00 06/26/18 16:00 Intake and Output: 06/26/18 06/27/18 18:59 06:59 Intake Total 50 Balance 50 - Medications Medications: Current Medications Acetaminophen (Tylenol 325mg Tab) 2 mg PO Q6 PRN PRN Reason: Pain, moderate (4-7) Calcitriol (Rocaltrol) 0.25 mcg PO DAILY [facility] Last Admin: 06/26/18 09:44 Dose: Not Given Calcium Acetate (Phoslo) 667 mg PO TID [facility] Last Admin: 06/26/18 17:39 Dose: 667 mg Collagenase (Santyl) 0 gm TOP HS [facility] Last Admin: 06/26/18 21:39 Dose: 1 applic Finasteride (Proscar) 5 mg PO DAILY [facility] Last Admin: 06/26/18 09:43 Dose: Not Given Fluconazole (Diflucan) 50 mg PO DAILY [facility] PRN Reason: Protocol Last Admin: 06/26/18 11:35 Dose: 50 mg Hydralazine HCl (Apresoline) 100 mg PO Q8 [facility] Last Admin: 06/26/18 21:35 Dose: 100 mg Insulin Human Regular (Novolin R) 0 unit SC ACHS [facility] PRN Reason: Protocol Last Admin: 06/26/18 16:28 Dose: Not Given Metoclopramide HCl (Reglan) 5 mg IVP Q6H [facility] Last Admin: 06/26/18 21:35 Dose: 5 mg Metoprolol Succinate (Toprol Xl) 50 mg PO BID [facility] Last Admin: 06/26/18 17:40 Dose: 50 mg Pantoprazole Sodium (Protonix Inj) 40 mg IVP DAILY [facility] Last Admin: 06/26/18 09:44 Dose: Not Given Rosuvastatin Calcium (Crestor) 5 mg PO HS [facility] Last Admin: 06/26/18 21:35 Dose: 5 mg - Labs Labs: 06/26/18 07:15 06/24/18 23:30 PT 12.9 SECONDS (9.7-12.2) H 06/25/18 12:11 INR 1.2 06/25/18 12:11 APTT 29 SECONDS (21-34) 06/25/18 12:11
--- NOTE | 2018-06-27 02:42 | PN ---
Copied To: Emilio Israel MD Attending MD: Emilio Israel MD DATE: 06/26/2018 SUBJECTIVE: The patient is status post . He is afebrile. PHYSICAL EXAMINATION: VITAL SIGNS: Blood pressure 147/70, pulse 66, respiratory rate 20, temperature 97.8. LUNGS: Clear. CARDIOVASCULAR SYSTEM: S1 and S2 plus S3 positive. ABDOMEN: Soft. ASSESSMENT: 1. Gastrointestinal bleed, most likely to diverticulosis with bleeding. 2. Diabetes. 3. Chronic kidney disease. 4. Congestive heart failure. PLAN: Colonoscopy. Monitor the patient. Emilio Israel MD
--- NOTE | 2018-06-27 07:04 | CON ---
Copied To: Frank Chamorro MD Attending MD: Frank Chamorro MD DATE: 06/25/[address] Chamorro to Dr. Jhonatan Jhaveri. I was called for GI consultation by the admitting MD. The patient was seen and fully examined on 06/25/2018 in the presence of the staff in the floor. The entire chart is reviewed including but not limited to the most recent lab and radiology study results, current and previous medication list, current and previous medical events, all the available current and previous medical records. Case discussed with the staff at length. HISTORY OF PRESENT ILLNESS: This is a 73-year-old male, known case for me from previous admission who was admitted to the hospital through the ER from [facility] due to recurrent episodes of rectal bleeding, abdominal pain, dyspepsia with nausea, with intermittent periods of dyspepsia with postprandial abdominal distention. No actual chest pain, palpitation, shortness of breath, chills, or fever. PAST MEDICAL HISTORY: Including but not limited to: 1. Hypertension. 2. Hyperlipidemia. 3. End-stage renal disease, on hemodialysis. 4. Peptic ulcer disease. 5. Diverticulosis by history. 6. Cardiac arrest with status post pacemaker insertion. It has to be mentioned that the patient had a colonoscopy done in 12/2017 due to change of bowel movement with upper endoscopy at the same time indicative of peptic ulcer disease. The patient also had blood transfusion due to recurrent GI blood loss and subsequent drop of hemoglobin and hematocrit. FAMILY HISTORY: Unknown. SOCIAL HISTORY: Denied any recent history of cigarette smoking or alcohol intake, but he is an ex-smoker. CURRENT MEDICATIONS: Post-admission medication lists were reviewed. ALLERGIES TO MEDICATIONS: Unclear. LABORATORY DATA: Initial blood workup at the time of the admission showed hemoglobin of 8.9, hematocrit 26.6 with normal white blood cells and platelet count with blood glucose level 189, BUN 30, and creatinine 6. PHYSICAL EXAMINATION: GENERAL: A 73-year-old male, awake, alert, oriented, afebrile with pulse of 72, respiratory rate 18 to 20, and blood pressure 110/58. HEENT: Showed pale, dry oral mucous membrane. Nonicteric sclerae. LYMPH NODES: No lymphadenitis. LUNGS: Few scattered crepitation with decreased air entry at bases. HEART: Positive S1 and S2. ABDOMEN: Soft with mild distention with generalized tenderness. Bowel sounds are hyperactive. No mass or organomegaly. No rebound tenderness or guarding. RECTAL EXAMINATION: Positive tone; trace presence of the blood with trace of black tarry stool. EXTREMITIES: Without significant clubbing, cyanosis, but mild lower extremity edematous changes. NEUROLOGIC: No reported new neurological deficits, sensory or motor. No reported new focal deficits. Peripheral pulses positive, but decreased bilaterally. IMPRESSION: 1. Gastrointestinal bleeding; upper versus lower. 2. Re-exacerbation of peptic ulcer disease. 3. Anemia most likely secondary to above. 4. Rule out occult gastrointestinal malignancy. 5. Multiple past medical history as reported above and possibility of ischemic colitis to be considered. SUGGESTIONS: 1. Cancer markers. 2. Blood transfusion to keep hemoglobin around 10 gram percent as needed. 3. Proton pump inhibitors. 4. Sectional abdominal and pelvic CAT scan. 5. Endoscopic evaluation of the upper GI tract when the patient is more stable clinically. However, if there is no significant noticed upper GI tract source of blood loss and if the patient's bleeding continued, then colonoscopy to be considered after adequate preparation. 6. Surgical consultation to be kept in mind. 7. Further recommendation to follow. Thank you for letting me participate in your patient's case management. Frank Chamorro MD
[2018-06-27] MEDS ORDERED: Dextrose 50% SYRINGE Inj (50 ml) IV STA (07:32)
[2018-06-27] MEDS: (Novolin R) Insulin Human Regular 100 units/ml vial SC SCH ×4 (08:04→22:18)
--- NOTE | 2018-06-27 08:35 | PN ---
Copied To: Blanca Thakkar MD Attending MD: Blanca Thakkar MD DATE: 06/26/2018 FOLLOWUP RENAL CONSULTATION LOCATION: The patient is located in the room 369, bed B. REQUESTED BY: Emilio Israel MD REASON FOR FOLLOWUP: End-stage renal disease, continuation of hemodialysis. HISTORY OF PRESENT ILLNESS: The patient is a 73-year-old elderly male with a past medical history significant for longstanding hypertension, diabetes, end-stage renal disease, status post pacemaker placement, diverticulosis, history of C. diff, peripheral vascular disease, status post left BKA, status post angioplasty of the right lower extremity who was sent from the [facility] with rectal bleed, fresh blood; and the patient is still having fresh blood per rectum status post transfusion of 1 unit of packed RBC as per the patient. The patient is not in acute distress. Denies any chest pain or palpitation. Denies any fever or cough. No abdominal pain. No nausea, vomiting, diarrhea. No fever. No cough. No shortness of breath. OBJECTIVE: VITAL SIGNS: As follows: Blood pressure 148/70, pulse 66, respirations 20, temperature 97.8, saturation 100%. Height 6 feet 1 inch, weight is 205 pounds. GENERAL: The patient is a 73-year-old elderly male, moderately built, moderately nourished, not in distress. HEENT: Pupils normal and reactive to light and accommodation. Conjunctivae pink. Sclerae anicteric. Tongue is moist. Trachea is midline. LUNGS: Symmetric on both sides. Bilateral breath sounds present. Clear to auscultation. CVS: Volin at the fifth intercostal space, midclavicular line. S1, S2 audible. No murmur or gallop. ABDOMEN: Normal in appearance, soft, tympanitic. No guarding. No rigidity. No hepatosplenomegaly. FURNITURE REPAIR TECHNICIAN: The patient is alert, awake and oriented x3. Nonfocal neuro examination. Cranial nerves II through XII grossly intact. Sensory and motor system is within normal limits. EXTREMITIES: No cyanosis, no clubbing, no edema on the right side. The patient has a small dressing to the middle of the right leg for superficial ulcer. Status post left BKA. MEDICATIONS: His current medications include as follows: Hydralazine 100 mg p.o. every 8 hours, Crestor 5 mg p.o. at bedtime, Diflucan 50 mg p.o. daily, Novolin R for sliding scale, PhosLo 667 mg p.o. t.i.d., Proscar 5 mg p.o. daily, Protonix 40 mg daily, Reglan 5 mg IV daily, Rocaltrol 0.25 mcg p.o. daily, Santyl topical, metoprolol 50 mg p.o. b.i.d., and Tylenol. LABORATORY DATA: His laboratory data include as follows: As of 06/26/2018, WBC 5.2, hemoglobin 8.6, hematocrit is 25.5, platelets 144. Accu-Cheks 99, 110, 114, and 134. As of 06/25/2018, H and H 06/22.9. IMPRESSION: In summary, the patient is a 73-year-old elderly male with a history of hypertension, diabetes, end-stage renal disease, diverticulosis, history of clostridium difficile colitis, status post pacemaker placement, also status post left below knee amputation, status post angioplasty of the right leg lower extremity in [facility], now admitted from the correction with rectal bleed and low hemoglobin and hematocrit. 1. End-stage renal disease. Continue hemodialysis three times a week Tuesday, , and Tuesday. 2. Hypertension. Blood pressure is stable. Continue his current medications hydralazine and metoprolol. 3. Benign prostatic hyperplasia. Continue Proscar. 4. Rectal bleed, etiology is not clear, most likely secondary to diverticulosis and diverticular bleed, status post EGD today. The patient is scheduled for colonoscopy in a.m. Continue to monitor H and H, and we will follow with you. Thank you for allowing me to participate in your patient's care. We will schedule for hemodialysis tomorrow. We will coordinate with colonoscopy. We will follow with you. Thank you for allowing me to participate in your patient's care. Case discussed with Dr. Emilio Israel in rounds. Blanca Thakkar MD
[2018-06-27 09:00] LABS: HEMOGLOBIN 8.8 g/dL (12.0-18.0); MEAN CELL VOLUME 90.3 fL (80.0-94.0); MEAN CORPUSCULAR HEMOGLOBIN 30.7 pg (27.0-31.0); MEAN PLATELET VOLUME 7.9 fL (7.2-11.7); RBC 2.85 Mil/uL (4.40-5.90); RED CELL DISTRIBUTION WIDTH 15.5 % (11.5-14.5); WHITE BLOOD COUNT 5.3 K/uL (4.8-10.8)
[2018-06-27 09:25] LABS: CALCIUM 8.5 mg/dl (8.6-10.4)
[2018-06-27] MEDS ORDERED: Paricalcitol 2 mcg/ml Inj IV ONE (09:30)
[2018-06-27] MEDS: Ferric Sodium Gluconat Complex 62.5 mg/5 ml Vial IVPB SCH (10:18)
[2018-06-27] MEDS: Epoetin Alfa Dialysis 20000 UNIT/ML Inj IV SCH (10:18)
[2018-06-27] MEDS: Metoprolol Succinate 50 mg XL Tab PO SCH ×2 (10:35→17:32)
--- NOTE | 2018-06-27 15:24 | CP.PCM.PN ---
Subjective - Date & Time of Evaluation Date of Evaluation: 06/27/18 Time of Evaluation: 15:00 - Subjective Subjective: PGY-4 GI Fellow Prog Note Pt lying in bed, eating liquid diet tray. Pt denies any complaints. States tolerated prep well with reddish-clear bowel movements. Denied any abd pain, N/ V. 5 point ROS negative other than stated above Objective - Vital Signs/Intake and Output Vital Signs (last 24 hours): Temp Pulse Resp BP Pulse Ox 97.7 F 87 18 113/56 L 100 06/27/18 12:30 06/27/18 12:30 06/27/18 12:30 06/27/18 12:30 06/27/18 12:30 Intake and Output: 06/27/18 06/27/18 06:59 18:59 Intake Total 350 Balance 350 - Medications Medications: Current Medications Acetaminophen (Tylenol 325mg Tab) 2 mg PO Q6 PRN PRN Reason: Pain, moderate (4-7) Calcitriol (Rocaltrol) 0.25 mcg PO DAILY [facility] Last Admin: 06/27/18 10:35 Dose: Not Given Calcium Acetate (Phoslo) 667 mg PO TID [facility] Last Admin: 06/27/18 13:56 Dose: 667 mg Collagenase (Santyl) 0 gm TOP HS [facility] Last Admin: 06/26/18 21:39 Dose: 1 applic Epoetin Omi (Procrit) 20,000 unit IV TTS [facility] Last Admin: 06/27/18 10:18 Dose: 20,000 unit Ferric Sodium Gluconate Complex (Ferrlecit) 125 mg IVPB TTS [facility] Stop: 07/05/18 10:01 Last Admin: 06/27/18 10:18 Dose: 125 mg Finasteride (Proscar) 5 mg PO DAILY [facility] Last Admin: 06/27/18 14:02 Dose: 5 mg Fluconazole (Diflucan) 50 mg PO DAILY [facility] PRN Reason: Protocol Last Admin: 06/27/18 14:02 Dose: 50 mg Hydralazine HCl (Apresoline) 100 mg PO Q8 [facility] Last Admin: 06/27/18 13:57 Dose: 100 mg Insulin Human Regular (Novolin R) 0 unit SC ACHS [facility] PRN Reason: Protocol Last Admin: 06/27/18 11:30 Dose: Not Given Metoclopramide HCl (Reglan) 5 mg IVP Q6H [facility] Last Admin: 06/27/18 10:34 Dose: Not Given Metoprolol Succinate (Toprol Xl) 50 mg PO BID [facility] Last Admin: 06/27/18 10:35 Dose: Not Given Pantoprazole Sodium (Protonix Inj) 40 mg IVP DAILY [facility] Last Admin: 06/27/18 10:34 Dose: Not Given Rosuvastatin Calcium (Crestor) 5 mg PO HS [facility] Last Admin: 06/26/18 21:35 Dose: 5 mg - Labs Labs: 06/27/18 08:53 06/27/18 08:53 PT 12.9 SECONDS (9.7-12.2) H 06/25/18 12:11 INR 1.2 06/25/18 12:11 APTT 29 SECONDS (21-34) 06/25/18 12:11 - Constitutional Appears: Well, No Acute Distress - Head Exam Head Exam: ATRAUMATIC, NORMAL INSPECTION - Eye Exam Eye Exam: EOMI. absent: Conjunctival injection, Scleral icterus - ENT Exam ENT Exam: Mucous Membranes Moist, Normal External Ear Exam. absent: Mucous Membranes Dry - Respiratory Exam Respiratory Exam: NORMAL BREATHING PATTERN. absent: Accessory Muscle Use, Wheezes - Cardiovascular Exam Cardiovascular Exam: REGULAR RHYTHM, RRR - GI/Abdominal Exam GI & Abdominal Exam: Distended (mildly), Soft, Normal Bowel Sounds. absent: Firm, Guarding, Rigid, Tenderness, Diminished Bowel Sounds, Hernia, Hyperactive Bowel Sounds, Hypoactive Bowel Sounds, Mass, Organomegaly, Pulsatile Mass, Rebound Assessment and Plan - Assessment and Plan (Free Text) Assessment: 73 yo BM with h/o ESRD, HTN, Diverticulosis presenting with bright red blood per rectum. # Hematochezia: Painless. Likely related to diverticular vs AVM vs mass vs hemorrhoidal other. S/p EGD 06/26 without signs of active bleed. # Luma Esophagitis: LA-B. Cont fluconazole Plan: - Clear Liq Diet - NPO at [facility] for Colonoscopy on 06/28 - Dulcolax PO this PM - s/p bowel prep 06/26 - Check INR in AM, give FFP if >1.5 - Cont fluconazole and PPI Pt discused with Dr. Law. See his attestation for further recs/changes.
--- NOTE | 2018-06-27 16:47 | CARD ---
APPROVED REPORT Date of service: 06/24/2018 EKG Measurement Heart [id number] <Conclusion> Sinus rhythm with 1st degree AV block Right bundle branch block Inferior infarct, age undetermined Anteroseptal infarct, age undetermined Abnormal ECG
--- NOTE | 2018-06-27 19:33 | CP.PCM.PN ---
Subjective - Date & Time of Evaluation Date of Evaluation: 06/27/18 Time of Evaluation: 19:33 - Subjective Subjective: pt is seen and examined, follow up consult is dictated #[id number] s/p hd today, uf 1.2 lit Objective - Vital Signs/Intake and Output Vital Signs (last 24 hours): Temp Pulse Resp BP Pulse Ox 99.7 F H 88 20 152/68 H 98 06/27/18 17:20 06/27/18 17:20 06/27/18 17:20 06/27/18 17:20 06/27/18 17:20 Intake and Output: 06/27/18 06/28/18 18:59 06:59 Intake Total 350 Balance 350 - Medications Medications: Current Medications Acetaminophen (Tylenol 325mg Tab) 2 mg PO Q6 PRN PRN Reason: Pain, moderate (4-7) Calcitriol (Rocaltrol) 0.25 mcg PO DAILY [facility] Last Admin: 06/27/18 10:35 Dose: Not Given Calcium Acetate (Phoslo) 667 mg PO TID [facility] Last Admin: 06/27/18 17:32 Dose: 667 mg Collagenase (Santyl) 0 gm TOP HS [facility] Last Admin: 06/26/18 21:39 Dose: 1 applic Epoetin Omi (Procrit) 20,000 unit IV TTS [facility] Last Admin: 06/27/18 10:18 Dose: 20,000 unit Ferric Sodium Gluconate Complex (Ferrlecit) 125 mg IVPB TTS [facility] Stop: 07/05/18 10:01 Last Admin: 06/27/18 10:18 Dose: 125 mg Finasteride (Proscar) 5 mg PO DAILY [facility] Last Admin: 06/27/18 14:02 Dose: 5 mg Fluconazole (Diflucan) 50 mg PO DAILY [facility] PRN Reason: Protocol Last Admin: 06/27/18 14:02 Dose: 50 mg Hydralazine HCl (Apresoline) 100 mg PO Q8 [facility] Last Admin: 06/27/18 13:57 Dose: 100 mg Insulin Human Regular (Novolin R) 0 unit SC ACHS [facility] PRN Reason: Protocol Last Admin: 06/27/18 11:30 Dose: Not Given Metoclopramide HCl (Reglan) 5 mg IVP Q6H [facility] Last Admin: 06/27/18 17:32 Dose: 5 mg Metoprolol Succinate (Toprol Xl) 50 mg PO BID [facility] Last Admin: 06/27/18 17:32 Dose: 50 mg Pantoprazole Sodium (Protonix Inj) 40 mg IVP DAILY [facility] Last Admin: 06/27/18 10:34 Dose: Not Given Rosuvastatin Calcium (Crestor) 5 mg PO HS [facility] Last Admin: 06/26/18 21:35 Dose: 5 mg - Labs Labs: 06/27/18 08:53 06/27/18 08:53 PT 12.9 SECONDS (9.7-12.2) H 06/25/18 12:11 INR 1.2 06/25/18 12:11 APTT 29 SECONDS (21-34) 06/25/18 12:11
--- NOTE | 2018-06-27 23:25 | CP.PCM.PN ---
Objective - Vital Signs/Intake and Output Vital Signs (last 24 hours): Temp Pulse Resp BP Pulse Ox 99.7 F H 88 20 152/68 H 98 06/27/18 17:20 06/27/18 17:20 06/27/18 17:20 06/27/18 17:20 06/27/18 17:20 Intake and Output: 06/27/18 06/28/18 18:59 06:59 Intake Total 350 250 Balance 350 250 - Medications Medications: Current Medications Acetaminophen (Tylenol 325mg Tab) 2 mg PO Q6 PRN PRN Reason: Pain, moderate (4-7) Calcitriol (Rocaltrol) 0.25 mcg PO DAILY [facility] Last Admin: 06/27/18 10:35 Dose: Not Given Calcium Acetate (Phoslo) 667 mg PO TID [facility] Last Admin: 06/27/18 17:32 Dose: 667 mg Collagenase (Santyl) 0 gm TOP HS [facility] Last Admin: 06/26/18 21:39 Dose: 1 applic Epoetin Omi (Procrit) 20,000 unit IV TTS [facility] Last Admin: 06/27/18 10:18 Dose: 20,000 unit Ferric Sodium Gluconate Complex (Ferrlecit) 125 mg IVPB TTS [facility] Stop: 07/05/18 10:01 Last Admin: 06/27/18 10:18 Dose: 125 mg Finasteride (Proscar) 5 mg PO DAILY [facility] Last Admin: 06/27/18 14:02 Dose: 5 mg Fluconazole (Diflucan) 50 mg PO DAILY [facility] PRN Reason: Protocol Last Admin: 06/27/18 14:02 Dose: 50 mg Hydralazine HCl (Apresoline) 100 mg PO Q8 [facility] Last Admin: 06/27/18 22:15 Dose: 100 mg Insulin Human Regular (Novolin R) 0 unit SC ACHS [facility] PRN Reason: Protocol Last Admin: 06/27/18 22:18 Dose: Not Given Metoclopramide HCl (Reglan) 5 mg IVP Q6H [facility] Last Admin: 06/27/18 22:23 Dose: 5 mg Metoprolol Succinate (Toprol Xl) 50 mg PO BID [facility] Last Admin: 06/27/18 17:32 Dose: 50 mg Pantoprazole Sodium (Protonix Inj) 40 mg IVP DAILY [facility] Last Admin: 08/28/18 10:34 Dose: Not Given Rosuvastatin Calcium (Crestor) 5 mg PO HS [facility] Last Admin: 06/27/18 22:15 Dose: 5 mg - Labs Labs: 06/27/18 08:53 06/27/18 08:53 PT 12.9 SECONDS (9.7-12.2) H 06/25/18 12:11 INR 1.2 06/25/18 12:11 APTT 29 SECONDS (21-34) 06/25/18 12:11
--- NOTE | 2018-06-28 03:27 | PN ---
Copied To: Blanca Thakkar MD Attending MD: Blanca Thakkar MD DATE: 06/27/2018 FOLLOWUP RENAL CONSULTATION LOCATION: The patient is located in room 369, bed B. REQUESTED BY: Emilio Israel MD REASON FOR FOLLOWUP: End-stage renal disease, continuation of the hemodialysis and rectal bleed. SUBJECTIVE: Mr. Richards is a 73-year-old elderly very pleasant male with a history of longstanding hypertension, diabetes, peripheral vascular disease, status post left BKA, status post pacemaker placement, diverticulosis, C. difficile colitis in the past who was in the [facility], was sent from the custodial with chief complaints of rectal bleed, sudden onset on Tuesday evening, multiple episodes. The patient was also requiring transfusion. Status post EGD yesterday and scheduled for colonoscopy, but canceled and later on scheduled for colonoscopy for tomorrow. The patient denies any chest pain or palpitation. Denies any fever or cough. No abdominal pain. No nausea, vomiting, or diarrhea today. The patient was complaining of pain in the left shoulder during dialysis. Pain is slightly better now. PHYSICAL EXAMINATION: VITAL SIGNS: As follows: Blood pressure 152/68, pulse 88, respirations 20, temperature 99.7, saturation 98% to 100%. Height 6 feet 1 inch. Weight is 190 pounds. GENERAL: Mr. Richards is a 73-year-old elderly male, moderately built, moderately nourished, not in acute distress. HEENT: Pupils are normal and reactive to light and accommodation. Conjunctivae slightly pale. Sclerae anicteric. Tongue is moist and trachea is midline. LUNGS: Symmetric on both sides. Bilateral breath sounds present. Clear to auscultation. CARDIOVASCULAR SYSTEM: Dougherty at the fifth intercostal space, midclavicular line. S1, S2 audible. No murmur. No gallop. ABDOMEN: Normal in appearance, slightly protuberant, soft, tympanitic. No guarding. No rigidity. No hepatosplenomegaly. CENTRAL NERVOUS SYSTEM: The patient is alert, awake, oriented x3. Nonfocal neuro examination. Cranial nerves II-XII grossly intact. Sensory and motor system is within normal limits. EXTREMITIES: No cyanosis, no clubbing, no edema on the right leg. Status post left BKA. The patient has a small dressing on the right leg. CURRENT MEDICATIONS: Include as follows: Hydralazine 100 mg p.o. every 8 hours, Crestor 5 mg daily, Diflucan 50 mg p.o. daily, Ferrlecit 125 mg three times a week on Tuesday, and Tuesday, PhosLo 667 mg p.o. t.i.d., Epogen 20,000 units three times a week, Proscar 5 mg p.o. daily, Protonix 40 mg p.o. daily, Reglan 5 mg every 6 hours IV piggyback, calcitriol 0.25 mcg p.o. daily, Santyl topical, metoprolol 50 mg p.o. b.i.d., and Tylenol 325 mg two tablets p.o. every 6 hours p.r.n. LABORATORY DATA: Include as follows as of 06/27/2018: WBC 5.3, hemoglobin 8.8, hematocrit is 25.7, platelets 164. Sodium 136, potassium is 5, chloride 97, CO2 of 19, anion gap 25, BUN 66, creatinine is 10.5, glucose 152, calcium 8.5. Accu-Cheks, 89, 159 and 95. ASSESSMENT AND PLAN: In summary, Mr. Richards is a 73-year-old elderly male with a history of hypertension, diabetes, diverticulosis, peripheral vascular disease, status post left below-knee amputation, status post pacemaker placement, history of Clostridium difficile colitis who was admitted with sudden onset of rectal bleed since Tuesday that is on 06/24/2018, rectal bleed and low hemoglobin and hematocrit who is status post transfusion of one unit packed red blood cells. 1. End-stage renal disease. Continue hemodialysis three times a week on Tuesday, and Tuesday. The patient underwent hemodialysis today, had ultrafiltration of about 1.2 liters. 2. Hypertension. Blood pressure is stable. Continue his current medications, hydralazine and metoprolol. 3. Anemia secondary to rectal bleed. Continue Ferrlecit and Epogen three times a week. 4. Benign prostatic hypertrophy. Continue Proscar. 5. Rectal bleed. Follow up with Gastroenterology for colonoscopy in the morning. We will follow with you. Thank you for allowing me to participate in your patient's care. Restrict the fluids to one liter per day. Blanca Thakkar MD [facility] # [phone]
--- NOTE | 2018-06-28 04:41 | PN ---
Copied To: Emilio Israel MD Attending MD: Emilio Israel MD DATE: 06/27/2018 SUBJECTIVE: The patient is for colonoscopy today. He is afebrile. No shortness of breath. He is not actively bleeding, seen by Dr. Law. PHYSICAL EXAMINATION: VITAL SIGNS: BP 156/71, pulse 51, respiratory rate 20, and temperature 98.1. LUNGS: Clear. CVS: S1 and S2 regular. ABDOMEN: Soft. ASSESSMENT: 1. Gastrointestinal bleed due to diverticulosis. 2. Diabetes. 3. Chronic kidney disease, on hemodialysis. 4. Hypertension. PLAN: Medical management. Monitor the patient. Emilio Israel MD
[2018-06-28 06:57] LABS: MEAN CELL VOLUME 89.1 fL (80.0-94.0); MEAN CORPUSCULAR HEMOGLOBIN 30.2 pg (27.0-31.0); MEAN CORPUSCULAR HGB CONC 33.9 g/dL (33.0-37.0); MEAN PLATELET VOLUME 7.7 fL (7.2-11.7); RBC 2.65 Mil/uL (4.40-5.90); RED CELL DISTRIBUTION WIDTH 15.1 % (11.5-14.5); WHITE BLOOD COUNT 4.8 K/uL (4.8-10.8)
[2018-06-28 07:05] LABS: INR 1.1; PROTHROMBIN TIME 12.4 SECONDS (9.7-12.2)
[2018-06-28 07:10] LABS: CALCIUM 7.8 mg/dl (8.6-10.4)
[2018-06-28] MEDS: (Novolin R) Insulin Human Regular 100 units/ml vial SC SCH ×4 (08:52→21:37)
[2018-06-28] MEDS ORDERED: Sodium Chloride 0.9% 1,000 ML IV ONE (09:10)
[2018-06-28] MEDS ORDERED: Propofol 10 mg/ml Inj (20 ML) ONE (09:17)
[2018-06-28] MEDS ORDERED: Midazolam 2 MG/2 ML VIAL ONE (09:18)
[2018-06-28] MEDS: Metoprolol Succinate 50 mg XL Tab PO SCH ×2 (11:03→17:52)
[2018-06-28] MEDS ORDERED: Magnesium Citrate Oral SOL (300 ml) PO ONE ×2 (13:00→18:00)
[2018-06-28] MEDS ORDERED: Bisacodyl 5mg EC Tab PO ONE (18:00)
--- NOTE | 2018-06-28 20:11 | CP.PCM.PN ---
Subjective - Date & Time of Evaluation Date of Evaluation: 06/28/18 Time of Evaluation: 20:11 - Subjective Subjective: pt is seen and examined, follow up consult is dictated #[id number] for hd in am, stool c.diff toxin + Objective - Vital Signs/Intake and Output Vital Signs (last 24 hours): Temp Pulse Resp BP Pulse Ox 98.6 F 78 20 164/75 H 97 06/28/18 16:23 06/28/18 16:23 06/28/18 16:23 06/28/18 16:23 06/28/18 16:23 Intake and Output: 06/28/18 06/29/18 18:59 06:59 Intake Total 360 Balance 360 - Medications Medications: Current Medications Acetaminophen (Tylenol 325mg Tab) 2 mg PO Q6 PRN PRN Reason: Pain, moderate (4-7) Calcitriol (Rocaltrol) 0.25 mcg PO DAILY [facility] Last Admin: 06/28/18 10:29 Dose: 0.25 mcg Calcium Acetate (Phoslo) 667 mg PO TID [facility] Last Admin: 06/28/18 17:52 Dose: 667 mg Collagenase (Santyl) 0 gm TOP HS [facility] Last Admin: 06/26/18 21:39 Dose: 1 applic Epoetin Omi (Procrit) 20,000 unit IV TTS [facility] Last Admin: 06/27/18 10:18 Dose: 20,000 unit Ferric Sodium Gluconate Complex (Ferrlecit) 125 mg IVPB TTS [facility] Stop: 07/05/18 10:01 Last Admin: 06/27/18 10:18 Dose: 125 mg Finasteride (Proscar) 5 mg PO DAILY [facility] Last Admin: 06/28/18 10:29 Dose: 5 mg Fluconazole (Diflucan) 50 mg PO DAILY [facility] PRN Reason: Protocol Last Admin: 06/28/18 10:29 Dose: 50 mg Hydralazine HCl (Apresoline) 100 mg PO Q8 [facility] Last Admin: 06/28/18 14:09 Dose: 100 mg Insulin Human Regular (Novolin R) 0 unit SC ACHS [facility] PRN Reason: Protocol Last Admin: 06/28/18 16:53 Dose: Not Given Metoprolol Succinate (Toprol Xl) 50 mg PO BID [facility] Last Admin: 06/28/18 17:52 Dose: 50 mg Pantoprazole Sodium (Protonix Ec Tab) 40 mg PO DAILY [facility] Rosuvastatin Calcium (Crestor) 5 mg PO HS [facility] Last Admin: 06/27/18 22:15 Dose: 5 mg - Labs Labs: 06/28/18 06:42 06/28/18 06:42 PT 12.4 SECONDS (9.7-12.2) H 06/28/18 06:42 INR 1.1 06/28/18 06:42 APTT 31 SECONDS (21-34) 06/28/18 06:42
--- NOTE | 2018-06-28 20:41 | CP.PCM.PN ---
Objective - Vital Signs/Intake and Output Vital Signs (last 24 hours): Temp Pulse Resp BP Pulse Ox 98.6 F 78 20 164/75 H 97 06/28/18 16:23 06/28/18 16:23 06/28/18 16:23 06/28/18 16:23 06/28/18 16:23 Intake and Output: 06/28/18 06/29/18 18:59 06:59 Intake Total 360 Balance 360 - Medications Medications: Current Medications Acetaminophen (Tylenol 325mg Tab) 2 mg PO Q6 PRN PRN Reason: Pain, moderate (4-7) Calcitriol (Rocaltrol) 0.25 mcg PO DAILY [facility] Last Admin: 06/28/18 10:29 Dose: 0.25 mcg Calcium Acetate (Phoslo) 667 mg PO TID [facility] Last Admin: 06/28/18 17:52 Dose: 667 mg Collagenase (Santyl) 0 gm TOP HS [facility] Last Admin: 06/26/18 21:39 Dose: 1 applic Epoetin Omi (Procrit) 20,000 unit IV TTS [facility] Last Admin: 06/27/18 10:18 Dose: 20,000 unit Ferric Sodium Gluconate Complex (Ferrlecit) 125 mg IVPB TTS [facility] Stop: 07/05/18 10:01 Last Admin: 06/27/18 10:18 Dose: 125 mg Finasteride (Proscar) 5 mg PO DAILY [facility] Last Admin: 06/28/18 10:29 Dose: 5 mg Fluconazole (Diflucan) 50 mg PO DAILY [facility] PRN Reason: Protocol Last Admin: 06/28/18 10:29 Dose: 50 mg Hydralazine HCl (Apresoline) 100 mg PO Q8 [facility] Last Admin: 06/28/18 14:09 Dose: 100 mg Insulin Human Regular (Novolin R) 0 unit SC ACHS [facility] PRN Reason: Protocol Last Admin: 06/28/18 16:53 Dose: Not Given Metoprolol Succinate (Toprol Xl) 50 mg PO BID [facility] Last Admin: 06/28/18 17:52 Dose: 50 mg Pantoprazole Sodium (Protonix Ec Tab) 40 mg PO DAILY [facility] Rosuvastatin Calcium (Crestor) 5 mg PO HS [facility] Last Admin: 06/27/18 22:15 Dose: 5 mg Vancomycin HCl (Vancocin (Oral Or Rectal Use)) 125 mg PO QID [facility] PRN Reason: Protocol - Labs Labs: 06/28/18 06:42 06/28/18 06:42 PT 12.4 SECONDS (9.7-12.2) H 06/28/18 06:42 INR 1.1 06/28/18 06:42 APTT 31 SECONDS (21-34) 06/28/18 06:42
[2018-06-28] MEDS: Vancomycin 125 MG/5 ML SOLN (ORAL/RECTAL) PO SCH (21:39)
[2018-06-28] MEDS: Collagenase 250 Units/gm Ointment(30 gm) TOP SCH (23:25)
--- NOTE | 2018-06-29 06:24 | PN ---
Copied To: Emilio Israel MD Attending MD: Emilio Israel MD DATE: 06/28/2018 SUBJECTIVE: The patient is for colonoscopy. He is not actively bleeding. His H and H are stable. He has been seen by GI. No fever. No chills. Afebrile. PHYSICAL EXAMINATION: VITAL SIGNS: Blood pressure 164/75, pulse 78, respiratory rate 20, temperature 98.6. LUNGS: Clear. No rales. No rhonchi. CVS: S1 and S2 plus 2/6 ejection systolic murmur at the apex. ABDOMEN: Soft, nontender. Bowel sound are positive. ASSESSMENT: 1. End-stage renal disease, on hemodialysis. 2. Peripheral vascular disease, for intervention by Dr. Schwartz. 3. Gastrointestinal bleed. The patient's gastrointestinal bleed is under control. The patient is status post EGD, and he needs colonoscopy. 4. Hypertension. PLAN: Continue current medication. Emilio Israel MD
[2018-06-29] MEDS: (Novolin R) Insulin Human Regular 100 units/ml vial SC SCH ×3 (07:14→17:30)
--- NOTE | 2018-06-29 07:57 | CON ---
Copied To: Blanca Thakkar MD Attending MD: Blanca Thakkar MD DATE: 06/28/2018 FOLLOWUP RENAL CONSULTATION LOCATION: The patient is located in room 369, bed B. REQUESTED BY: Emilio Israel MD REASON FOR FOLLOWUP: End-stage renal disease, continuation of hemodialysis, rectal bleed. HISTORY OF PRESENT ILLNESS: Mr. Richards is a 73-year-old elderly very pleasant male with a past medical history significant for longstanding hypertension, diabetes, hyperlipidemia, BPH, end-stage renal disease, peripheral vascular disease, status post left BKA, status post pacemaker placement, status post angioplasty of the right leg for ulcer on the middle of the leg, who was admitted with rectal bleed and found to have anemia, status post transfusion of packed RBCs. The patient underwent colonoscopy, unsuccessful due to poor preparation, and the patient is scheduled for colonoscopy again tomorrow. The patient is not in acute distress. Denies any headache, dizziness. Denies any chest pain or palpitation. Denies any fever or cough. No abdominal pain. No nausea, vomiting, or diarrhea. PHYSICAL EXAMINATION: VITAL SIGNS: As follows: Blood pressure 165/76, pulse 78, respirations 20, temperature 98.6, and saturation 97% to 100%. Height 6 feet 1 inch, weight is 190 pounds. GENERAL: Mr. Richards is a 73-year-old elderly male, moderately built, moderately nourished, not in distress. HEENT: Pupils normal, and reactive to light and accommodation. Conjunctivae pink. Sclerae anicteric. Tongue is moist. NECK: Trachea is midline. LUNGS: Symmetric on both sides. Bilateral breath sounds present. Clear to auscultation. CVS: [place] at the fifth intercostal space, midclavicular line. S1, S2 audible. No murmur or gallop. ABDOMEN: Normal in appearance. Soft, tympanic. No guarding. No rigidity. No hepatosplenomegaly. 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 Nonfocal neuro examination. Cranial nerves II through XII grossly intact. Sensory and motor system are within normal limits. EXTREMITIES: No cyanosis, no clubbing, no edema on the right leg. The patient has a 4 x 4 dressing to the middle of the right leg. Superficial ulcer left lower extremity, status post BKA. CURRENT MEDICATIONS: Include as follows: Hydralazine 100 mg p.o. every 8 hours, Crestor 5 mg p.o. at bedtime, Diflucan 50 mg p.o. daily, Ferrlecit 125 mg three times a week, Novolin R for sliding scale, PhosLo 667 mg p.o. t.i.d., Procrit 20,000 units three times a week, Protonix 40 mg p.o. daily, Santyl ointment topical, metoprolol 50 mg p.o. b.i.d., Tylenol, and vancomycin 125 mg p.o. 4 times a day. LABORATORY DATA: Include as follows: As of 06/28/2018, WBC 4.8, hemoglobin 8, hematocrit is 23.6, platelets 140, PT 12.4, PTT 31. Sodium 138, potassium 4.5, chloride 98, CO2 26, BUN 34, creatinine 7.8, glucose 84, calcium is 7.8. Stool for C. difficile toxin is positive. ASSESSMENT AND PLAN: In summary, Mr. Richards is a 73-year-old elderly male with a past medical history significant for longstanding hypertension, diabetes, end-stage renal disease, benign prostatic hyperplasia, status post left below-knee amputation and right leg ulcer, status post right lower extremity angiogram and angioplasty, was admitted with rectal bleed sudden onset last week, Tuesday, status post esophagogastroduodenoscopy and status post colonoscopy. The patient is rescheduled for colonoscopy again due to poor preparation, and also stool for Clostridium difficile toxin is positive. 1. End-stage renal disease. Continue hemodialysis three times a week, Tuesday, , Tuesday. 2. Anemia secondary to rectal bleed. Hemoglobin and hematocrit are stable. Continue Ferrlecit. Continue Epogen. Follow up hemoglobin and hematocrit. 3. Clostridium difficile colitis. 4. Hypertension. 5. Diabetes. The patient is scheduled for colonoscopy in a.m. We will schedule for hemodialysis after colonoscopy tomorrow. We will follow with you. Thank you for allowing me to participate in your patient's care. Blanca Thakkar MD
[2018-06-29] MEDS ORDERED: Propofol 10 mg/ml Inj (20 ML) ONE (08:03)
[2018-06-29] MEDS ORDERED: Phenylephrine 10 mg/ml Inj ONE (08:04)
[2018-06-29] MEDS ORDERED: Sodium Chloride 0.9% 500 ML IV ONE ×2 (08:04)
[2018-06-29] MEDS: Metoprolol Succinate 50 mg XL Tab PO SCH ×2 (09:52→17:24)
[2018-06-29] MEDS: Vancomycin 125 MG/5 ML SOLN (ORAL/RECTAL) PO SCH ×2 (09:53→13:32)
[2018-06-29] MEDS ORDERED: Pantoprazole 40 mg EC Tab PO SCH (10:00)
--- NOTE | 2018-06-29 13:22 | CP.PCM.PN ---
Subjective - Date & Time of Evaluation Date of Evaluation: 06/29/18 Time of Evaluation: 11:00 - Subjective Subjective: Patient seen today, denies any abdominal pain/ N/V/ tolerating diet s/p colonoscopy today -non bleeding internal and external hemorrhoids , diverticulosis in the entire colon, no evidence of diverticular bleeding ( see full report for details ) hgb stable- 8-8.6-8 Objective - Vital Signs/Intake and Output Vital Signs (last 24 hours): Temp Pulse Resp BP Pulse Ox 98.2 F 78 14 176/78 H 95 06/29/18 08:25 06/29/18 08:55 06/29/18 08:55 06/29/18 08:55 06/29/18 08:55 Intake and Output: 06/29/18 06/29/18 06:59 18:59 Intake Total 400 Balance 400 - Medications Medications: Current Medications Acetaminophen (Tylenol 325mg Tab) 2 mg PO Q6 PRN PRN Reason: Pain, moderate (4-7) Calcitriol (Rocaltrol) 0.25 mcg PO DAILY [facility] Last Admin: 06/29/18 09:51 Dose: 0.25 mcg Calcium Acetate (Phoslo) 667 mg PO TID [facility] Last Admin: 06/29/18 09:51 Dose: 667 mg Collagenase (Santyl) 0 gm TOP HS [facility] Last Admin: 06/28/18 23:25 Dose: 1 applic Epoetin Omi (Procrit) 20,000 unit IV TTS [facility] Last Admin: 06/27/18 10:18 Dose: 20,000 unit Ferric Sodium Gluconate Complex (Ferrlecit) 125 mg IVPB TTS [facility] Stop: 07/05/18 10:01 Last Admin: 06/27/18 10:18 Dose: 125 mg Finasteride (Proscar) 5 mg PO DAILY [facility] Last Admin: 06/29/18 09:51 Dose: 5 mg Fluconazole (Diflucan) 50 mg PO DAILY [facility] PRN Reason: Protocol Last Admin: 06/29/18 09:51 Dose: 50 mg Hydralazine HCl (Apresoline) 100 mg PO Q8 [facility] Last Admin: 06/29/18 06:43 Dose: 100 mg Insulin Human Regular (Novolin R) 0 unit SC ACHS [facility] PRN Reason: Protocol Last Admin: 06/29/18 07:14 Dose: Not Given Metoprolol Succinate (Toprol Xl) 50 mg PO BID [facility] Last Admin: 06/29/18 09:52 Dose: Not Given Pantoprazole Sodium (Protonix Ec Tab) 40 mg PO DAILY [facility] Last Admin: 06/29/18 09:51 Dose: 40 mg Rosuvastatin Calcium (Crestor) 5 mg PO HS [facility] Last Admin: 06/28/18 21:40 Dose: 5 mg Vancomycin HCl (Vancocin (Oral Or Rectal Use)) 125 mg PO QID [facility] PRN Reason: Protocol Last Admin: 06/29/18 09:53 Dose: 125 mg - Labs Labs: 06/28/18 06:42 06/28/18 06:42 PT 12.4 SECONDS (9.7-12.2) H 06/28/18 06:42 INR 1.1 06/28/18 06:42 APTT 31 SECONDS (21-34) 06/28/18 06:42 - Constitutional Appears: Well, No Acute Distress - Respiratory Exam Respiratory Exam: Clear to Ausculation Bilateral, NORMAL BREATHING PATTERN - Cardiovascular Exam Cardiovascular Exam: REGULAR RHYTHM, +S1, +S2 - GI/Abdominal Exam GI & Abdominal Exam: Soft - Neurological Exam Neurological Exam: Alert, Awake, Oriented x3 Additional comments: wound ppresent Assessment and Plan - Assessment and Plan (Free Text) Assessment: A/P 73 yr old male with pmhx of HTN, Hypercholesterolemia, End Stage Renal Disease on HD TUE,,SAT sent from [facility] for evaluation of bright red blood from rectum and abdominal pain s/p EGD-Candidiasis esophagitis and gastritis( see full report for details) s/p colonoscopy- non bleeding internal and external hemorrhoids , diverticulosis in the entire colon, no evidence of diverticular bleeding ( see full report for details ) hgb stable- 8-8.6-8 pathology - negative for active colitis or dysphlasia D/W Dr. israel, cleared fro discharge home today an df/u with Dr. Israel office in 1 week an continue HD as scheduled stool -c-dif toxin b positive started on vanco po and continue for 7 more days discharge plan discussed [facility] pateint who understands and agrees with plan RX e prescribed to [facility]
[2018-06-29 14:21] VITALS: O2SAT 99
[2018-06-29] MEDS: Ferric Sodium Gluconat Complex 62.5 mg/5 ml Vial IVPB SCH (15:26)
[2018-06-29] MEDS: Epoetin Alfa Dialysis 20000 UNIT/ML Inj IV SCH (15:27)
[2018-06-29 16:34] VITALS: BP 174/75; PULSE 83; RESP 20; TEMP 98
--- NOTE | 2018-06-29 17:26 | CP.PCM.PN ---
Subjective - Date & Time of Evaluation Date of Evaluation: 06/29/18 Time of Evaluation: 17:26 - Subjective Subjective: pt is seen and examined, follow up consult is dictated #[id number] s/p hd today, had a uf about 2.5 lit Objective - Vital Signs/Intake and Output Vital Signs (last 24 hours): Temp Pulse Resp BP Pulse Ox 98 F 83 20 174/75 H 99 06/29/18 16:33 06/29/18 16:33 06/29/18 16:33 06/29/18 16:33 06/29/18 16:33 Intake and Output: 06/29/18 06/29/18 06:59 18:59 Intake Total 400 Balance 400 - Medications Medications: Current Medications Acetaminophen (Tylenol 325mg Tab) 2 mg PO Q6 PRN PRN Reason: Pain, moderate (4-7) Calcitriol (Rocaltrol) 0.25 mcg PO DAILY [facility] Last Admin: 06/29/18 09:51 Dose: 0.25 mcg Calcium Acetate (Phoslo) 667 mg PO TID [facility] Last Admin: 06/29/18 17:18 Dose: 667 mg Collagenase (Santyl) 0 gm TOP HS [facility] Last Admin: 06/28/18 23:25 Dose: 1 applic Epoetin Omi (Procrit) 20,000 unit IV TTS [facility] Last Admin: 06/29/18 15:27 Dose: 20,000 unit Ferric Sodium Gluconate Complex (Ferrlecit) 125 mg IVPB TTS [facility] Stop: 07/05/18 10:01 Last Admin: 06/29/18 15:26 Dose: 125 mg Finasteride (Proscar) 5 mg PO DAILY [facility] Last Admin: 06/29/18 09:51 Dose: 5 mg Fluconazole (Diflucan) 50 mg PO DAILY [facility] PRN Reason: Protocol Last Admin: 06/29/18 09:51 Dose: 50 mg Hydralazine HCl (Apresoline) 100 mg PO Q8 [facility] Last Admin: 06/29/18 13:32 Dose: Not Given Insulin Human Regular (Novolin R) 0 unit SC ACHS [facility] PRN Reason: Protocol Last Admin: 06/29/18 12:20 Dose: 2 units Metoprolol Succinate (Toprol Xl) 50 mg PO BID [facility] Last Admin: 06/29/18 09:52 Dose: Not Given Pantoprazole Sodium (Protonix Ec Tab) 40 mg PO DAILY [facility] Last Admin: 06/29/18 09:51 Dose: 40 mg Rosuvastatin Calcium (Crestor) 5 mg PO HS [facility] Last Admin: 06/28/18 21:40 Dose: 5 mg Vancomycin HCl (Vancocin (Oral Or Rectal Use)) 125 mg PO QID [facility] PRN Reason: Protocol Last Admin: 06/29/18 13:32 Dose: Not Given - Labs Labs: 06/28/18 06:42 06/28/18 06:42 PT 12.4 SECONDS (9.7-12.2) H 06/28/18 06:42 INR 1.1 06/28/18 06:42 APTT 31 SECONDS (21-34) 06/28/18 06:42
--- NOTE | 2018-06-30 02:57 | PN ---
Copied To: Blanca Thakkar MD Attending MD: Blanca Thakkar MD DATE: 06/29/2018 FOLLOWUP RENAL CONSULTATION LOCATION: The patient is located in room 369, bed B. REQUESTED BY: Emilio Israel MD HISTORY OF PRESENT ILLNESS: Mr. Richards is a 73-year-old elderly male with a past medical history significant for longstanding hypertension, diabetes, end-stage renal disease, diverticulosis, and history of C. diff colitis in the past, status post left BKA, status post angioplasty of the right lower extremity for peripheral vascular disease was admitted with chief complaints of rectal bleed, status post EGD and colonoscopy. The patient denies any complaints today. The patient underwent hemodialysis today after colonoscopy, had ultrafiltration about 2.5 liters. The patient denies any chest pain or palpitation. Denies any fever or cough. No abdominal pain. PHYSICAL EXAMINATION: VITAL SIGNS: This is afternoon, blood pressure 163/75, 174/75; pulse 83; respirations 20; temperature 98. Height 6 feet 1 inch, weight is 190 pounds. GENERAL: Mr. Richards is a 73-year-old elderly male, moderately built, moderately nourished, not in distress. HEENT: Pupils normal and reactive to light and accommodation. Conjunctivae pink. Sclerae anicteric. Tongue is moist. Trachea is midline. LUNGS: Symmetric on both sides. Bilateral breath sounds present. Clear to auscultation. CVS: [place] at the fifth intercostal space, half inch medial to midclavicular area. S1, S2 audible. No murmur or gallop. ABDOMEN: Normal in appearance, soft, tympanitic. No guarding. No rigidity. No hepatosplenomegaly. TAX MANAGER: The patient is alert, awake, and oriented x3. Nonfocal neuro examination. Cranial nerves II through XII grossly intact. Sensory and motor system is within normal limits. EXTREMITIES: Status post left BKA. At the right lower extremity, the patient has a dressing in the mid of the leg. MEDICATIONS: Current medications include as follows: Aspirin 325 mg p.o. daily, hydralazine 100 mg p.o. every 8 hours, vancomycin 125 mg p.o. 4 times daily, Crestor 5 mg p.o. at bedtime, metoprolol 50 mg p.o. b.i.d., Anusol HC one application per rectal b.i.d., Diflucan 50 mg p.o. daily, Proscar 5 mg p.o. daily, Feosol 325 mg daily, Pepcid 20 mg p.o. daily, Santyl, and PhosLo 667 mg p.o. t.i.d., Rocaltrol 0.25 mg p.o. daily, and Tylenol. LABORATORY DATA: No new labs are available. Accu-Cheks 91, 241, and 132. IMPRESSION: In summary, Mr. Richards is a 73-year-old elderly male with a history of longstanding hypertension, diabetes, peripheral vascular disease, status post left below knee amputation, status post pacemaker placement, diverticulosis, history of Clostridium difficile colitis who was admitted with rectal bleed. Stool for Clostridium difficile toxin was positive. Started on Flagyl yesterday. 1. End-stage renal disease. Continue hemodialysis three times a week; Tuesday, , Tuesday. The patient underwent hemodialysis today, had ultrafiltration of 2.5 liters. 2. Hypertension. Blood pressure is stable. Continue his current antihypertensive medications, hydralazine 100 mg p.o. every 8 hours, metoprolol 50 mg p.o. b.i.d., and titrate Toprol as needed. 3. Anemia, secondary to recent gastrointestinal bleed, rectal bleed. No ____ EGD and colonoscopy. 4. Clostridium difficile colitis. 5. Diverticulosis. PLAN: Continue vancomycin 125 mg p.o. 4 times daily. We will follow with you. Thank you for allowing me to participate in your patient's care. The patient is being discharged to home and follow up with Dr. Israel as scheduled. Blanca Thakkar MD
== END 2018-06-29 18:28 | disposition home health service (06) | DRG 377 ==
LOC: C.ER 22:58 → C.3T 06-25 00:08
PROVIDERS: ADMIT Internal Medicine; ATTEND Internal Medicine
PROC: 0DB68ZX Excision of Stomach, Via Natural or Artificial Opening Endoscopic, Diagnostic (ICD-10-PCS; principal; 2018-06-26 09:53)
PROC: 5A1D70Z Performance of Urinary Filtration, Intermittent, Less than 6 Hours Per Day (ICD-10-PCS; 2018-06-27)
PROC: 0DBM8ZX Excision of Descending Colon, Via Natural or Artificial Opening Endoscopic, Diagnostic (ICD-10-PCS; 2018-06-28)
PROC: 0DBM8ZX Excision of Descending Colon, Via Natural or Artificial Opening Endoscopic, Diagnostic (ICD-10-PCS; 2018-06-29)
PROC: 5A1D70Z Performance of Urinary Filtration, Intermittent, Less than 6 Hours Per Day (ICD-10-PCS; 2018-06-29)
DX: K57.31 Diverticulosis of large intestine without perforation or abscess with bleeding (principal); N18.6 End stage renal disease; A04.72 Enterocolitis due to Clostridium difficile, not specified as recurrent; B37.81 Candidal esophagitis; K29.00 Acute gastritis without bleeding; D50.0 Iron deficiency anemia secondary to blood loss (chronic); K29.80 Duodenitis without bleeding; K44.9 Diaphragmatic hernia without obstruction or gangrene; B96.81 Helicobacter pylori [H. pylori] as the cause of diseases classified elsewhere; I13.2 Hypertensive heart and chronic kidney disease with heart failure and with stage 5 chronic kidney disease, or end stage renal disease; E11.21 Type 2 diabetes mellitus with diabetic nephropathy; E11.22 Type 2 diabetes mellitus with diabetic chronic kidney disease; E11.51 Type 2 diabetes mellitus with diabetic peripheral angiopathy without gangrene; K64.8 Other hemorrhoids; K64.4 Residual hemorrhoidal skin tags; I50.9 Heart failure, unspecified; N40.0 Benign prostatic hyperplasia without lower urinary tract symptoms; E78.5 Hyperlipidemia, unspecified; E78.00 Pure hypercholesterolemia, unspecified; F03.90 Unspecified dementia, unspecified severity, without behavioral disturbance, psychotic disturbance, mood disturbance, and anxiety; Z89.512 Acquired absence of left leg below knee; Z86.74 Personal history of sudden cardiac arrest; Z95.0 Presence of cardiac pacemaker; Z99.2 Dependence on renal dialysis; Z87.891 Personal history of nicotine dependence; Z87.11 Personal history of peptic ulcer disease

== ENCOUNTER 2018-09-18 13:34 | Inpatient (IN) | payer MEDICARE, BC ==
[2018-09-18 13:35] VITALS: BMI 25.3
--- NOTE | 2018-09-18 15:01 | C.PDOC ---
History Of Present Illness 73yo male, with history of dialysis, comes to ER for evaluation of groin pain x 2 days and also bilateral shoulder and neck pain. Patient reports he has been feeling urinary urgency as well but has not made urine "for a while." Patient denies any falls or trauma and is unsure what caused his shoulder pain. He states he was able to complete 2.5 hours of dialysis today. No weakness, numbness, and no additional complaints. Time Seen by Provider: 09/18/18 14:00 Chief Complaint (Nursing): Groin Pain History Per: Patient History/Exam Limitations: no limitations Current Symptoms Are (Timing): Still Present Past Medical History Reviewed: Historical Data, Nursing Documentation, Vital Signs Vital Signs: Last Vital Signs Temp 99.4 F 09/18/18 13:43 Pulse 107 H 09/18/18 13:43 Resp 20 09/18/18 13:43 BP 111/57 L 09/18/18 13:43 Pulse Ox 99 09/18/18 13:43 - Medical History PMH: Diverticulitis, HTN, Hypercholesterolemia, End Stage Renal Disease, Chronic Kidney Disease Denies: Alzheimer's Disease, Peripheral Edema Surgical History: Pacemaker (12/17) - [facility] Procedures (06/25/18) BYPASS LEFT POPLITEAL ARTERY TO FOOT ARTERY, OPEN APPROACH (12/27/15) DETACHMENT AT LEFT 2ND TOE, MID, OPEN APPROACH (12/27/15) DETACHMENT AT LEFT 5TH TOE, COMPLETE, OPEN APPROACH (12/27/15) DETACHMENT AT LEFT LOWER LEG, HIGH, OPEN APPROACH (12/13/16) DIALYSIS ARTERIOVENOSTOM (04/08/14) EXCISION OF DESCENDING COLON, ENDO, DIAGN (06/25/18) EXCISION OF LEFT FOOT SKIN, EXTERNAL APPROACH (12/27/15) EXCISION OF LEFT GREATER SAPHENOUS VEIN, OPEN APPROACH (12/27/15) EXCISION OF STOMACH, ENDO, DIAGN (06/25/18) EXCISION OF STOMACH, PYLORUS, ENDO, DIAGN (12/22/17) FLUOROSCOPY OF LEFT HEART USING LOW OSMOLAR CONTRAST (12/27/15) FLUOROSCOPY OF MULT COR ART USING L OSM CONTRAST (12/27/15) HEMODIALYSIS (04/08/14) INSERTION OF ENDOTRACHEAL AIRWAY INTO TRACHEA, VIA OPENING (12/13/16) INSERTION OF INFUSION DEV INTO SUP VENA CAVA, PERC APPROACH (12/27/15) INSERTION OF INFUSION DEVICE INTO R ATRIUM, PERC APPROACH (08/20/15) MEASURE OF CARDIAC SAMPL & PRESSURE, L HEART, PERC APPROACH (12/27/15) PERFORMANCE OF CARDIAC OUTPUT, SINGLE, MANUAL (12/13/16) PERFORMANCE OF URINARY FILTRATION, MULTIPLE (12/13/16) PLAIN RADIOGRAPHY OF AORTA, BI LE ART USING L OSM CONTRAST (12/27/15) RESPIRATORY VENTILATION, LESS THAN 24 CONSECUTIVE HOURS (12/13/16) TRANSFUSE NONAUT RED BLOOD CELLS IN PERIPH VEIN, PERC (12/27/15) ULTRASONOGRAPHY OF SUPERIOR VENA CAVA, GUIDANCE (12/27/15) VENOUS CATHETERIZATION FOR RENAL DIALYSIS (04/08/14) Family History: States: Unknown Family Hx - Social History Hx Tobacco Use: Yes Hx Alcohol Use: No Hx Substance Use: No - Immunization History Hx Tetanus Toxoid Vaccination: No Hx Influenza Vaccination: Yes Hx Pneumococcal Vaccination: Yes Review Of Systems Except As Marked, All Systems Reviewed And Found Negative. Constitutional: Negative for: Fever, Chills Genitourinary: Positive for: Other (urinary urgerny) Musculoskeletal: Positive for: Neck Pain, Shoulder Pain Physical Exam - Physical Exam Appears: No Acute Distress, Chronically Ill Skin: Normal Color Head: Atraumatic, Normacephalic Eye(s): bilateral: Normal Inspection Neck: Supple Chest: Symmetrical Cardiovascular: Rhythm Regular Respiratory: Normal Breath Sounds Gastrointestinal/Abdominal: No Tenderness, Other (firm abdomen) Extremity: Normal ROM (FROM of bilateral shoulders), No Tenderness, Other (left BKA; left arm with fistula) ED Course And Treatment - Laboratory Results Result Diagrams: 09/18/18 15:03 09/18/18 15:03 O2 Sat by Pulse Oximetry: 99 (RA) Pulse Ox Interpretation: Normal - Other Rad CXR X-Ray: Read By Radiologist Interpretation: FINDINGS: LUNGS: Poor inspiration with low lung volumes, crowded bronchovascular markings and minor bibasilar atelectasis. PLEURA: No significant pleural effusion identified, no pneumothorax apparent. CARDIOVASCULAR: No appreciable aortic atherosclerotic calcification seen on this chest radiograph. In situ single lead pacemaker/defibrillator. OSSEOUS STRUCTURES: No significant abnormalities. VISUALIZED UPPER ABDOMEN: Normal. OTHER FINDINGS: None. IMPRESSION: Poor inspiration with low lung volumes, crowded bronchovascular markings and minor bibasilar atelectasis. - CT Scan/US US Testicular Other Rad Studies (CT/US): Read By Radiologist CT/US Interpretation: FINDINGS: RIGHT TESTICLE: Measures 2.4 x 2.7 x 3.3 cm. Normal echotexture and flow. RIGHT EPIDIDYMIS: Epididymal head measures 0.8 x 1.3 cm. Grossly unremarkable appearance with normal flow.Incidental finding(s): 3 small epididymal cysts ranging from 2-4 mm. LEFT TESTICLE: Measures 2.4 x 2.8 x 5.1 cm. Normal echotexture and flow. LEFT EPIDIDYMIS: Epididymal head measures 0.8 x 1.8 cm. Grossly unremarkable appearance with normal flow. HYDROCELE: None. VARICOCELE: None. OTHER FINDINGS: None. IMPRESSION: Negative study for epididymitis, orchitis or torsion. Additional benign and/or incidental findings described above. Medical Decision Making Medical Decision Making: Impression: 73yo male with shoulder pain, urinary urgency, groin pain Plan: -- Labs -- CXR -- US Testicular Progress: Contact Dr Radha Thakkar to discuss case, he recommends obs admission and to contact Dr Israel Disposition - Disposition Disposition: HOSPITALIZED Disposition Time: 17:50 Condition: STABLE - POA Present On Arrival: None - Clinical Impression Clinical Impression: ESRD needing dialysis, Fever - Scribe Statement The provider has reviewed the documentation as recorded by the Jake Long Provider Attestation: All medical record entries made by the Jake were at my direction and personally dictated by me. I have reviewed the chart and agree that the record accurately reflects my personal performance of the history, physical exam, medical decision making, and the department course for this patient. I have also personally directed, reviewed, and agree with the discharge instructions and disposition. Decision To Admit - Pt Status Changed To: Hospital Disposition Of: Inpatient - Admit Certification Admit to Inpatient:: After my assessment, the patient will require hospitalization for at least two midnights. This is because of the severity of symptoms shown, intensity of services needed, and/or the medical risk in this patient being treated as an outpatient. - InPatient: Physician Admission Certification: I certify that this patient requires 2 or more midnights of care for the following reason:: patient febrile outpatient has groin pain and anuric, labs show leukocytosis. - . Bed Request Type: Regular Admitting Physician: Emilio Israel Patient Diagnosis: ESRD needing dialysis, Fever
[2018-09-18 15:07] LABS: BASO # 0.1 K/uL (0.0-0.2); BASO % 0.5 % (0.0-2.0); EOS % 0.1 % (0.0-4.0); LYMPH # 0.7 K/uL (1.0-4.3); LYMPH % 5.1 % (20.0-40.0); MEAN CORPUSCULAR HEMOGLOBIN 31.1 pg (27.0-31.0); MEAN PLATELET VOLUME 9.5 fL (7.2-11.7); MONO # 1.7 K/uL (0.0-0.8); MONO % 11.7 % (0.0-10.0); NEUT # 11.9 K/uL (1.8-7.0); NEUT % 82.6 % (50.0-75.0); RBC 3.53 Mil/uL (4.40-5.90); RED CELL DISTRIBUTION WIDTH 15.6 % (11.5-14.5)
[2018-09-18 15:18] LABS: ALB/GLOB RATIO 1.1 (1.0-2.1); ALBUMIN 4.2 g/dL (3.5-5.0); CALCIUM 8.3 mg/dl (8.6-10.4); MEAN CELL VOLUME 94.4 fL (80.0-94.0); PLATELET COUNT 98 K/uL (130-400); WHITE BLOOD COUNT 14.5 K/uL (4.8-10.8)
[2018-09-18 15:40] LABS: ANISOCYTOSIS SLIGHT; BANDS 2 % (0-2); LYMPHOCYTE 3 % (20-40); MONOCYTE 12 % (0-10); NEUTROPHIL 83 % (50-75); PLATELET ESTIMATE DECREASED (NORMAL); TOTAL CELLS COUNTED 100
--- NOTE | 2018-09-18 16:14 | US ---
Date of service: 09/18/2018 HISTORY: scrotal pain TECHNIQUE: Realtime sonography through the scrotum with color and doppler flow. COMPARISON: None Available. FINDINGS: RIGHT TESTICLE: Measures 2.4 x 2.7 x 3.3 cm. Normal echotexture and flow. RIGHT EPIDIDYMIS: Epididymal head measures 0.8 x 1.3 cm. Grossly unremarkable appearance with normal flow.Incidental finding(s): 3 small epididymal cysts ranging from 2-4 mm. LEFT TESTICLE: Measures 2.4 x 2.8 x 5.1 cm. Normal echotexture and flow. LEFT EPIDIDYMIS: Epididymal head measures 0.8 x 1.8 cm. Grossly unremarkable appearance with normal flow. HYDROCELE: None. VARICOCELE: None. OTHER FINDINGS: None. IMPRESSION: Negative study for epididymitis, orchitis or torsion. Additional benign and/or incidental findings described above.
--- NOTE | 2018-09-18 16:15 | RAD ---
Date of service: 09/18/2018 HISTORY: SOB COMPARISON: Comparison made with prior chest radiograph 06/24/2018. FINDINGS: LUNGS: Poor inspiration with low lung volumes, crowded bronchovascular markings and minor bibasilar atelectasis. PLEURA: No significant pleural effusion identified, no pneumothorax apparent. CARDIOVASCULAR: No appreciable aortic atherosclerotic calcification seen on this chest radiograph. In situ single lead pacemaker/defibrillator. OSSEOUS STRUCTURES: No significant abnormalities. VISUALIZED UPPER ABDOMEN: Normal. OTHER FINDINGS: None. IMPRESSION: Poor inspiration with low lung volumes, crowded bronchovascular markings and minor bibasilar atelectasis.
[2018-09-18] MEDS ORDERED: Piperacillin/Tazobact 3.375 gm 100 ML IV STA (17:45)
[2018-09-18] MEDS ORDERED: Piperacillin/Tazobact 3.375 gm 100 ML IVPB ONE (18:32)
[2018-09-18] MEDS ORDERED: Oxycodone/Acetaminophen 5/325 mg Tab PO PRN (20:41)
[2018-09-18] MEDS ORDERED: Collagenase 250 Units/gm Ointment(30 gm) TOP SCH (22:00)
--- NOTE | 2018-09-18 22:14 | CP.PCM.HP ---
Past Patient History - Infectious Disease Hx of Infectious Diseases: None - Past Medical History & Family History Past Medical History?: Yes - Past Social History Smoking Status: Former Smoker - CARDIAC Hx Cardiac Disorders: Yes Hx Hypercholesterolemia: Yes Hx Hypertension: Yes Hx Pacemaker: Yes (12/17) Hx Peripheral Edema: No - PULMONARY Hx Respiratory Disorders: No Other/Comment: light smoker - NEUROLOGICAL Hx Neurological Disorder: No Hx Alzheimer's Disease: No - HEENT Hx HEENT Problems: Yes Other/Comment: left eye vision problems - RENAL Hx Chronic Kidney Disease: Yes - ENDOCRINE/METABOLIC Hx Endocrine Disorders: Yes Hx Diabetes Mellitus Type 2: Yes - HEMATOLOGICAL/ONCOLOGICAL Hx Blood Transfusions: Yes (UNKNOWN) - INTEGUMENTARY Hx Dermatological Problems: No - MUSCULOSKELETAL/RHEUMATOLOGICAL Hx Falls: No Other/Comment: LBKA - GASTROINTESTINAL Hx Gastrointestinal Disorders: Yes Hx Diverticulitis: Yes - GENITOURINARY/GYNECOLOGICAL Hx Genitourinary Disorders: No Hx Urinary Tract Infection: Yes Other/Comment: ADMITTING DX PYELONEPHRITIS - PSYCHIATRIC Hx Substance Use: No - SURGICAL HISTORY Hx Surgeries: Yes Hx Amputation: Yes Hx Vascular Surgery: Yes Hx Vascular Access Device: Yes - ANESTHESIA Hx Anesthesia: Yes Hx Anesthesia Reactions: No Hx Malignant Hyperthermia: No Has any member of the family had a problem w/ anesthesia?: No Meds Allergies/Adverse Reactions: Allergies Allergy/AdvReac Type Severity Reaction Status Date / Time No Known Allergies Allergy Verified 09/18/18 13:46 Results - Vital Signs Recent Vital Signs: Last Vital Signs Temp 98.5 F 09/18/18 20:46 Pulse 101 H 09/18/18 20:46 Resp 20 09/18/18 20:46 BP 125/70 09/18/18 20:46 Pulse Ox 97 09/18/18 20:46 - Labs Result Diagrams: 09/18/18 15:03 09/18/18 15:03 Labs: Laboratory Results - last 24 hr 09/18/18 09/18/18 09/18/18 15:03 15:03 15:04 WBC 14.5 H D RBC 3.53 L Hgb 11.0 L D Hct 33.3 L MCV 94.4 H D MCH 31.1 H MCHC 33.0 RDW 15.6 H Plt Count 98 L D MPV 9.5 Neut % (Auto) 82.6 H Lymph % (Auto) 5.1 L [place] % (Auto) 11.7 H Eos % (Auto) 0.1 Baso % (Auto) 0.5 Neut # (Auto) 11.9 H Lymph # (Auto) 0.7 L [place] # (Auto) 1.7 H Eos # (Auto) 0.0 Baso # (Auto) 0.1 Neutrophils % (Manual) 83 H Band Neutrophils % 2 Lymphocytes % (Manual) 3 L Monocytes % (Manual) 12 H Platelet Estimate Decreased L Anisocytosis (manual) Slight Sodium 137 Potassium 4.7 Chloride 98 Carbon Dioxide 22 Anion Gap 21 H BUN 44 H Creatinine 7.1 H Est GFR ( Amer) 9 Est GFR (Non-Af Amer) 8 POC Glucose (mg/dL) 124 H Random Glucose 128 H Calcium 8.3 L Total Bilirubin 1.4 H AST 25 ALT 22 Alkaline Phosphatase 108 Total Creatine Kinase 100 Total Protein 8.0 Albumin 4.2 Globulin 3.8 Albumin/Globulin Ratio 1.1 09/18/18 21:02 WBC RBC Hgb Hct MCV MCH MCHC RDW Plt Count MPV Neut % (Auto) Lymph % (Auto) [place] % (Auto) Eos % (Auto) Baso % (Auto) Neut # (Auto) Lymph # (Auto) [place] # (Auto) Eos # (Auto) Baso # (Auto) Neutrophils % (Manual) Band Neutrophils % Lymphocytes % (Manual) Monocytes % (Manual) Platelet Estimate Anisocytosis (manual) Sodium Potassium Chloride Carbon Dioxide Anion Gap BUN Creatinine Est GFR ( Amer) Est GFR (Non-Af Amer) POC Glucose (mg/dL) 261 H Random Glucose Calcium Total Bilirubin AST ALT Alkaline Phosphatase Total Creatine Kinase Total Protein Albumin Globulin Albumin/Globulin Ratio
[2018-09-18] MEDS: Piperacill/Tazo 2.25gm in Dex 2.25 GM/50 ML BAG IVPB SCH (23:59)
--- NOTE | 2018-09-19 03:59 | HP ---
CHIEF COMPLAINT: Fever and flank pain for two days. HISTORY OF PRESENT ILLNESS: This is a 73-year-old male, well known to me, with history of CKD, type 2 diabetes, hypertension, hyperlipidemia, peripheral arterial disease, status post left below-knee amputation and status post right leg ulcer, and vascular surgery consult in the past, in his usual state of health. He is wheel-chair bound. He has a left below-knee prosthesis, but he sometime uses and sometimes not. He is dependent on his son for activities of daily living. He is unable to cooperate on his own. He is unable to move around on his own, in his usual state of health. He is ambulatory. The patient developed bilateral flank pain, fever, chills, rigors, body aches, tiredness, anorexia, malacia, and fatigue. According to him, he also has been feeling urinary urgency. Denies any hematuria or pyuria. He denies any dysuria. The patient is anuric, and he makes very little urine. There is no history of trauma, fall, or loss of consciousness. There is no history of seizure-like activity. There is no history of tingling, numbness, or paresthesias. His right leg has done well after angioplasty. CURRENT MEDICATIONS: Hydralazine, Crestor, Toprol-XL, lactulose, Diflucan, Proscar, iron sulphate, Pepcid, Santyl, PhosLo, calcitrol, aspirin, and Tylenol. SOCIAL HISTORY: He smokes. He denies drinking. FAMILY HISTORY: Negative for premature coronary artery disease. PHYSICAL EXAMINATION: GENERAL: An elderly male, not in any acute cardiopulmonary distress. He complains of fever, chills. VITAL SIGNS: Blood pressure 158/72, pulse 106, respiratory rate 20, and temperature 98.5. SKIN: No rashes. No bruises. No purpura. HEENT: Atraumatic and normocephalic. Positive PERRLA. Negative jaundice. Extraocular movements are intact. NECK: Supple. No JVD. No lymph node. No thyromegaly. No carotid bruit. CHEST WALL: Bilateral symmetrical expansion. No deformity. LUNGS: Bilaterally clear. No rales. No rhonchi. CARDIOVASCULAR SYSTEM: PMI not localized. S1 and S2, plus S3 positive. ABDOMEN: Soft and nontender. Bowel sounds are positive. RECTAL: Enlarged prostate. No masses. No bleeding. EXTREMITIES: No clubbing, cyanosis, or edema. Left BKA. CENTRAL NERVOUS SYSTEM: Awake, alert, and oriented x3. Cranial nerves II through XII are normal. Power 5/5 x4. Plantars are downgoing. ASSESSMENT: 1. Urinary tract infection, rule out pyelonephritis, rule out obstructive uropathy. The patient has urinary symptoms with flank pain, unlikely to be septicemia causing all these symptoms. 2. Chronic kidney disease, on hemodialysis. 3. Type 2 diabetes. 4. Hypertension. PLAN: Continue current medications. Monitor the patient. Septic workup. Emilio Israel MD
--- NOTE | 2018-09-19 06:12 | CP.PCM.CON ---
History of Present Illness - History of Present Illness History of Present Illness: Podiatry Consult Note: Dr. Stoll 73M patient, with PMHx of HTN, Hypercholesterolemia, ESRD, seen and examined for R leg ulceration. Patient states that the ulceration started about a month and a half ago. He receives local wound care from a home visiting nurse who changes the dressing weekly with Ag dressing and bordered gauze. 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 Patient denies N/V/SOB/CP, admits to fever. PMHx: HTN, Hypercholesterolemia, ESRD PSHx: Pacemaker, bypass L popliteal artery, R BKA FHX: Unknown Social: Former heavy smoker, current light tobacco use ALL: NKDA Review of Systems - Review of Systems Review of Systems: As per HPI Past Patient History - Infectious Disease Hx of Infectious Diseases: None - Past Medical History & Family History Past Medical History?: Yes - Past Social History Smoking Status: Former Smoker - CARDIAC Hx Cardiac Disorders: Yes Hx Hypercholesterolemia: Yes Hx Hypertension: Yes Hx Pacemaker: Yes (12/17) Hx Peripheral Edema: No - PULMONARY Hx Respiratory Disorders: No Other/Comment: light smoker - NEUROLOGICAL Hx Neurological Disorder: No Hx Alzheimer's Disease: No - HEENT Hx HEENT Problems: Yes Other/Comment: left eye vision problems - RENAL Hx Chronic Kidney Disease: Yes - ENDOCRINE/METABOLIC Hx Endocrine Disorders: Yes Hx Diabetes Mellitus Type 2: Yes - HEMATOLOGICAL/ONCOLOGICAL Hx Blood Transfusions: Yes (UNKNOWN) - INTEGUMENTARY Hx Dermatological Problems: No - MUSCULOSKELETAL/RHEUMATOLOGICAL Hx Falls: No Other/Comment: LBKA - GASTROINTESTINAL Hx Gastrointestinal Disorders: Yes Hx Diverticulitis: Yes - GENITOURINARY/GYNECOLOGICAL Hx Genitourinary Disorders: No Hx Urinary Tract Infection: Yes Other/Comment: ADMITTING DX PYELONEPHRITIS - PSYCHIATRIC Hx Substance Use: No - SURGICAL HISTORY Hx Surgeries: Yes Hx Amputation: Yes Hx Vascular Surgery: Yes Hx Vascular Access Device: Yes - ANESTHESIA Hx Anesthesia: Yes Hx Anesthesia Reactions: No Hx Malignant Hyperthermia: No Has any member of the family had a problem w/ anesthesia?: No Meds Allergies/Adverse Reactions: Allergies Allergy/AdvReac Type Severity Reaction Status Date / Time No Known Allergies Allergy Verified 09/18/18 13:46 - Medications Medications: Current Medications Acetaminophen (Tylenol 325mg Tab) 2 mg PO Q6 PRN PRN Reason: Pain, moderate (4-7) Acetaminophen (Tylenol 325mg Tab) 650 mg PO Q6 PRN PRN Reason: Fever >100.4 F Last Admin: 09/19/18 03:27 Dose: 650 mg Aspirin (Aspirin) 325 mg PO DAILY [facility] Calcitriol (Rocaltrol) 0.25 mcg PO DAILY [facility] Calcium Acetate (Phoslo) 667 mg PO TID [facility] Collagenase (Santyl) 0 gm TOP HS [facility] Famotidine (Pepcid) 20 mg PO DAILY [facility] Ferrous Sulfate (Feosol) 325 mg PO DAILY [facility] Finasteride (Proscar) 5 mg PO DAILY [facility] Heparin Sodium (Porcine) (Heparin) 5,000 units SC Q8 [facility] Last Admin: 09/18/18 22:07 Dose: 5,000 units Hydralazine HCl (Apresoline) 100 mg PO Q8 [facility] Last Admin: 09/18/18 22:07 Dose: 100 mg Hydrocortisone (Anusol-Hc) 0 gm [place] BID [facility] Piperacillin Sod/Tazobactam Sod (Zosyn 2.25 Gm Iv Premix) 2.25 gm in 50 mls @ 100 mls/hr IVPB Q6H [facility]; Protocol Last Admin: 09/18/18 23:59 Dose: 100 mls/hr Lactulose (Enulose) 20 gm PO HS PRN PRN Reason: Constipation Metoprolol Succinate (Toprol Xl) 50 mg PO BID [facility] Oxycodone/Acetaminophen (Percocet 5/325 Mg Tab) 1 tab PO Q4H PRN PRN Reason: Pain Stop: 09/21/18 20:42 Last Admin: 09/18/18 22:08 Dose: 1 tab Rosuvastatin Calcium (Crestor) 5 mg PO HS [facility] Last Admin: 09/18/18 22:06 Dose: 5 mg Physical Exam - Constitutional Appears: Well, Non-toxic, No Acute Distress - Extremities Exam Additional comments: RLE focused exam: Vascular: DP non-palpable, PT faintly palpable, cap refil > 3 seconds, Te mperature gradient warm to warm, no edema noted Ortho: Mild pain upon palpation of ulceration site, MMT 5/5 to the RLE, L BKA Neuro: protective sensation diminised, gross sensation intact, motor function intact. Derm: Small ulceration noted to anterior aspect of R leg measuring approximately .[id number].5.x0.1. Wound base healing with no open lesions, no drainage, no malodor, no tunneling, no tracking, no erythema. Diffuse xerosis to R lower extremity - Neurological Exam Neurological exam: Alert, Oriented x3 - Psychiatric Exam Psychiatric exam: Normal Affect, Normal Mood Results - Vital Signs Recent Vital Signs: Last Vital Signs Temp 99 F 09/19/18 06:09 Pulse 89 09/19/18 06:09 Resp 20 09/19/18 06:09 BP 104/51 L 09/19/18 06:09 Pulse Ox 98 09/19/18 06:09 - Labs Result Diagrams: 09/19/18 14:11 09/19/18 14:11 Labs: Laboratory Results - last 24 hr 09/18/18 09/18/18 09/18/18 15:03 15:03 15:04 WBC 14.5 H D RBC 3.53 L Hgb 11.0 L D Hct 33.3 L MCV 94.4 H D MCH 31.1 H MCHC 33.0 RDW 15.6 H Plt Count 98 L D MPV 9.5 Neut % (Auto) 82.6 H Lymph % (Auto) 5.1 L [place] % (Auto) 11.7 H Eos % (Auto) 0.1 Baso % (Auto) 0.5 Neut # (Auto) 11.9 H Lymph # (Auto) 0.7 L [place] # (Auto) 1.7 H Eos # (Auto) 0.0 Baso # (Auto) 0.1 Neutrophils % (Manual) 83 H Band Neutrophils % 2 Lymphocytes % (Manual) 3 L Monocytes % (Manual) 12 H Platelet Estimate Decreased L Anisocytosis (manual) Slight Sodium 137 Potassium 4.7 Chloride 98 Carbon Dioxide 22 Anion Gap 21 H BUN 44 H Creatinine 7.1 H Est GFR ( Amer) 9 Est GFR (Non-Af Amer) 8 POC Glucose (mg/dL) 124 H Random Glucose 128 H Calcium 8.3 L Total Bilirubin 1.4 H AST 25 ALT 22 Alkaline Phosphatase 108 Total Creatine Kinase 100 Total Protein 8.0 Albumin 4.2 Globulin 3.8 Albumin/Globulin Ratio 1.1 09/18/18 21:02 WBC RBC Hgb Hct MCV MCH MCHC RDW Plt Count MPV Neut % (Auto) Lymph % (Auto) [place] % (Auto) Eos % (Auto) Baso % (Auto) Neut # (Auto) Lymph # (Auto) [place] # (Auto) Eos # (Auto) Baso # (Auto) Neutrophils % (Manual) Band Neutrophils % Lymphocytes % (Manual) Monocytes % (Manual) Platelet Estimate Anisocytosis (manual) Sodium Potassium Chloride Carbon Dioxide Anion Gap BUN Creatinine Est GFR ( Amer) Est GFR (Non-Af Amer) POC Glucose (mg/dL) 261 H Random Glucose Calcium Total Bilirubin AST ALT Alkaline Phosphatase Total Creatine Kinase Total Protein Albumin Globulin Albumin/Globulin Ratio Assessment & Plan - Assessment and Plan (Free Text) Assessment: 73M patient, with PMHx of HTN, Hypercholesterolemia, ESRD, seen and examined for R leg ulceration, stable. Plan: Patient seen and evaluated with Dr. Stoll WBC 14.5, Temp: 99F Local wound care: Optifoam dressing Ammonium lactate ordered for R lower extremity Podiatry will continue to follow Thank you for the consult - Date & Time Date: 09/19/18 Time: 06:07
[2018-09-19] MEDS: Piperacill/Tazo 2.25gm in Dex 2.25 GM/50 ML BAG IVPB SCH ×3 (06:13→21:32)
--- NOTE | 2018-09-19 09:19 | CP.PCM.CON ---
History of Present Illness - History of Present Illness History of Present Illness: 73 yo AA male with pmh/o long standing htn, dm, esrd , on hd 3 x a week TTS, s/p pacemaker, s/p left BKA , s/p angioplasty of rt l LE s/p rx rt foot infection few months ago , diverticulosis, s/p rx diverticulitis, s/p rx c. diff 6 mongths ago was admitted with cc/o lower abdominal dis comfort and dysuria, frequency x 3-4 days, pt also had a fevre about 100.5 in the hd unit yesterday. pt also c/o occ cough ass ociated with whi te sputum for few days, no cp, no palpitation, no nausea, no vomitings, no h/a, no dizyness. pt is due for hd in am Review of Systems - Constitutional Constitutional: As Per HPI - EENT Eyes: As Per HPI Ears: As Per HPI Nose/Mouth/Throat: As Per HPI - Cardiovascular Cardiovascular: As Per HPI - Respiratory Respiratory: As Per HPI, Cough, Excessive Mucous Production - Gastrointestinal Gastrointestinal: As Per HPI - Genitourinary Genitourinary: As Per HPI, Dysuria, Urinary Frequency Additional comments: lower abd.pain - Musculoskeletal Musculoskeletal: As Per HPI - Integumentary Integumentary: As Per HPI - Neurological Neurological: As Per HPI - Psychiatric Psychiatric: As Per HPI - Endocrine Endocrine: As Per HPI - Hematologic/Lymphatic Hematologic: As Per HPI Past Patient History - Infectious Disease Hx of Infectious Diseases: None - Past Medical History & Family History Past Medical History?: Yes - Past Social History Smoking Status: Former Smoker - CARDIAC Hx Cardiac Disorders: Yes Hx Hypercholesterolemia: Yes Hx Hypertension: Yes Hx Pacemaker: Yes (12/17) Hx Peripheral Edema: No - PULMONARY Hx Respiratory Disorders: No Other/Comment: light smoker - NEUROLOGICAL Hx Neurological Disorder: No Hx Alzheimer's Disease: No - HEENT Hx HEENT Problems: Yes Other/Comment: left eye vision problems - RENAL Hx Chronic Kidney Disease: Yes - ENDOCRINE/METABOLIC Hx Endocrine Disorders: Yes Hx Diabetes Mellitus Type 2: Yes - HEMATOLOGICAL/ONCOLOGICAL Hx Blood Transfusions: Yes (UNKNOWN) - INTEGUMENTARY Hx Dermatological Problems: No - MUSCULOSKELETAL/RHEUMATOLOGICAL Hx Falls: No Other/Comment: LBKA - GASTROINTESTINAL Hx Gastrointestinal Disorders: Yes Hx Diverticulitis: Yes - GENITOURINARY/GYNECOLOGICAL Hx Genitourinary Disorders: No Hx Urinary Tract Infection: Yes Other/Comment: ADMITTING DX PYELONEPHRITIS - PSYCHIATRIC Hx Substance Use: No - SURGICAL HISTORY Hx Surgeries: Yes Hx Amputation: Yes Hx Vascular Surgery: Yes Hx Vascular Access Device: Yes - ANESTHESIA Hx Anesthesia: Yes Hx Anesthesia Reactions: No Hx Malignant Hyperthermia: No Has any member of the family had a problem w/ anesthesia?: No Meds Allergies/Adverse Reactions: Allergies Allergy/AdvReac Type Severity Reaction Status Date / Time No Known Allergies Allergy Verified 09/18/18 13:46 - Medications Medications: Current Medications Acetaminophen (Tylenol 325mg Tab) 2 mg PO Q6 PRN PRN Reason: Pain, moderate (4-7) Acetaminophen (Tylenol 325mg Tab) 650 mg PO Q6 PRN PRN Reason: Fever >100.4 F Last Admin: 09/19/18 03:27 Dose: 650 mg Aspirin (Aspirin) 325 mg PO DAILY [facility] Calcitriol (Rocaltrol) 0.25 mcg PO DAILY [facility] Calcium Acetate (Phoslo) 667 mg PO TID [facility] Collagenase (Santyl) 0 gm TOP HS [facility] Famotidine (Pepcid) 20 mg PO DAILY [facility] Ferrous Sulfate (Feosol) 325 mg PO DAILY [facility] Finasteride (Proscar) 5 mg PO DAILY [facility] Heparin Sodium (Porcine) (Heparin) 5,000 units SC Q8 [facility] Last Admin: 09/19/18 06:13 Dose: 5,000 units Hydralazine HCl (Apresoline) 100 mg PO Q8 [facility] Last Admin: 09/19/18 06:18 Dose: Not Given Hydrocortisone (Anusol-Hc) 0 gm [place] BID [facility] Piperacillin Sod/Tazobactam Sod (Zosyn 2.25 Gm Iv Premix) 2.25 gm in 50 mls @ 100 mls/hr IVPB Q6H [facility]; Protocol Last Admin: 09/19/18 06:13 Dose: 100 mls/hr Lactulose (Enulose) 20 gm PO HS PRN PRN Reason: Constipation Metoprolol Succinate (Toprol Xl) 50 mg PO BID [facility] Oxycodone/Acetaminophen (Percocet 5/325 Mg Tab) 1 tab PO Q4H PRN PRN Reason: Pain Stop: 09/21/18 20:42 Last Admin: 09/18/18 22:08 Dose: 1 tab Rosuvastatin Calcium (Crestor) 5 mg PO HS [facility] Last Admin: 09/18/18 22:06 Dose: 5 mg Physical Exam - Constitutional Appears: Non-toxic, No Acute Distress - Head Exam Head Exam: ATRAUMATIC - Eye Exam Eye Exam: EOMI, Normal appearance, PERRL Pupil Exam: NORMAL ACCOMODATION - ENT Exam ENT Exam: Mucous Membranes Moist - Neck Exam Neck exam: Positive for: Full Rom, Normal Inspection - Respiratory Exam Respiratory Exam: Clear to Auscultation Bilateral, NORMAL BREATHING PATTERN - Cardiovascular Exam Cardiovascular Exam: REGULAR RHYTHM, +S1, +S2 - GI/Abdominal Exam GI & Abdominal Exam: Distended, Normal Bowel Sounds, Soft - Rectal Exam Rectal Exam: Deferred - Extremities Exam Additional comments: left bka+ - Neurological Exam Neurological exam: Alert, CN II-XII Intact, Oriented x3, Reflexes Normal Additional comments: left leg prosthesis+ - Psychiatric Exam Psychiatric exam: Normal Affect, Normal Mood - Skin Skin Exam: Normal Color, Warm Results - Vital Signs Recent Vital Signs: Last Vital Signs Temp 99.5 F 09/19/18 07:29 Pulse 98 H 09/19/18 07:29 Resp 220 H 09/19/18 07:29 BP 108/60 09/19/18 07:29 Pulse Ox 99 09/19/18 07:29 - Labs Result Diagrams: 09/19/18 14:11 09/19/18 14:11 Labs: Laboratory Results - last 24 hr 09/18/18 09/18/18 09/18/18 15:03 15:03 15:04 WBC 14.5 H D RBC 3.53 L Hgb 11.0 L D Hct 33.3 L MCV 94.4 H D MCH 31.1 H MCHC 33.0 RDW 15.6 H Plt Count 98 L D MPV 9.5 Neut % (Auto) 82.6 H Lymph % (Auto) 5.1 L [place] % (Auto) 11.7 H Eos % (Auto) 0.1 Baso % (Auto) 0.5 Neut # (Auto) 11.9 H Lymph # (Auto) 0.7 L [place] # (Auto) 1.7 H Eos # (Auto) 0.0 Baso # (Auto) 0.1 Neutrophils % (Manual) 83 H Band Neutrophils % 2 Lymphocytes % (Manual) 3 L Monocytes % (Manual) 12 H Platelet Estimate Decreased L Anisocytosis (manual) Slight Sodium 137 Potassium 4.7 Chloride 98 Carbon Dioxide 22 Anion Gap 21 H BUN 44 H Creatinine 7.1 H Est GFR ( Amer) 9 Est GFR (Non-Af Amer) 8 POC Glucose (mg/dL) 124 H Random Glucose 128 H Calcium 8.3 L Total Bilirubin 1.4 H AST 25 ALT 22 Alkaline Phosphatase 108 Total Creatine Kinase 100 Total Protein 8.0 Albumin 4.2 Globulin 3.8 Albumin/Globulin Ratio 1.1 09/18/18 09/19/18 21:02 07:15 WBC RBC Hgb Hct MCV MCH MCHC RDW Plt Count MPV Neut % (Auto) Lymph % (Auto) [place] % (Auto) Eos % (Auto) Baso % (Auto) Neut # (Auto) Lymph # (Auto) [place] # (Auto) Eos # (Auto) Baso # (Auto) Neutrophils % (Manual) Band Neutrophils % Lymphocytes % (Manual) Monocytes % (Manual) Platelet Estimate Anisocytosis (manual) Sodium Potassium Chloride Carbon Dioxide Anion Gap BUN Creatinine Est GFR ( Amer) Est GFR (Non-Af Amer) POC Glucose (mg/dL) 261 H 179 H Random Glucose Calcium Total Bilirubin AST ALT Alkaline Phosphatase Total Creatine Kinase Total Protein Albumin Globulin Albumin/Globulin Ratio - Imaging and Cardiology Chest x-ray Status: Report reviewed by me US - abdomen Status: Report reviewed by me Additional comment: pelvic u/s Assessment & Plan - Assessment and Plan (Free Text) Assessment: 73 yo AA male with pmh/o htn, dm esrdpvd, s/p left bka, s/p pacemeaker, bph was admitted with lower abd. pain, dysuria, frequency, low garde fever 1. ESRD 2. HTN 3. DM 4. frequecy/dysuria, fever r/o UTI check blood c/s, urine c/s ID consult a spefr Dr. Israel will schedule for HD in am c/w current anti HTN meds low na, low K+diet c/w po4 binders Plan: as above
[2018-09-19] MEDS: Metoprolol Succinate 50 mg XL Tab PO SCH ×2 (10:00→20:37)
[2018-09-19] MEDS: Hydrocortisone 2.5% Rectal Cream(30 gm) PR SCH ×3 (10:01→20:39)
--- NOTE | 2018-09-19 14:10 | CP.PCM.CON ---
History of Present Illness - History of Present Illness History of Present Illness: HPI: 73-year-old male with past medical history of HTN, hypercholesterolemia, ESRD on hemodialysis TTS was admitted on 09/18/18 for evaluation of lower abdominal pain and terminal dysuria with inability to pass any urine for the past 2 days. Patient states he has been feeling urgency and abdominal discomfort and inability to void. Patient states he is also having some suprapubic discomfort. Patient also complains of generalized body aches with pain generalized.DENIES ANY FALLS OR TRAUMA. Patient also has history off left BKA done about 2 years ago. He also has a sustained laceration for about a month and a half on his right lower leg, which is presently healing and has a dressing in place. There is no drainage or dis charge noted from the ulceration site. Patient also has slight cough but denies any chest pain or shortness of breath. Patient underwent dialysis on Tuesday for 2.5 hours. Patient was empirically started on IV Zosyn 2.25 g IV piggyback every 6 hourly by PMD. Infectious disease consultation requested for the above complaints and possible UTI. A testicular ultrasound was done which did not reveal any epididymitis or any acute pathology. PMHx: HTN, Hypercholesterolemia, ESRD ON HEMODIALYSIS TTS, DIVERTICULITIS, HISTORY OF PSEUDOMEMBRANOUS COLITIS. PSHx: Pacemaker IN 2017, bypass L popliteal artery, LT BKA FHX: Unknown Social: Former heavy smoker, current light tobacco use ALL: NKDA Review of Systems - Constitutional Constitutional: As Per HPI, Fever, Malaise. absent: Frequent Falls, Headache - EENT Eyes: absent: Change in Vision Ears: absent: Dizziness Nose/Mouth/Throat: absent: Mouth Lesions, Sore Throat - Cardiovascular Cardiovascular: Leg Ulcers (right lower extremity laceration healing and dry.). absent: Chest Pain, Leg Edema - Respiratory Respiratory: Cough. absent: Hemoptysis, Chest Congestion, Change in Mucous Color - Gastrointestinal Gastrointestinal: Abdominal Pain (suprapubic discomfort.). absent: Constipation, Hematemesis, Loose Stools, Nausea, Vomiting - Genitourinary Genitourinary: Difficulty Urinating, Dysuria, Urinary Hesitance. absent: Hematuria - Reproductive: Male Reproductive:Male: Pelvic Pain - Musculoskeletal Musculoskeletal: Myalgias - Hematologic/Lymphatic Hematologic: As Per HPI. absent: Easy Bruising, Lymphadenopathy Past Patient History - Infectious Disease Hx of Infectious Diseases: None - Past Medical History & Family History Past Medical History?: Yes - Past Social History Smoking Status: Former Smoker - CARDIAC Hx Cardiac Disorders: Yes Hx Hypercholesterolemia: Yes Hx Hypertension: Yes Hx Pacemaker: Yes (12/17) Hx Peripheral Edema: No - PULMONARY Hx Respiratory Disorders: No Other/Comment: light smoker - NEUROLOGICAL Hx Neurological Disorder: No Hx Alzheimer's Disease: No - HEENT Hx HEENT Problems: Yes Other/Comment: left eye vision problems - RENAL Hx Chronic Kidney Disease: Yes - ENDOCRINE/METABOLIC Hx Endocrine Disorders: Yes Hx Diabetes Mellitus Type 2: Yes - HEMATOLOGICAL/ONCOLOGICAL Hx Blood Transfusions: Yes (UNKNOWN) - INTEGUMENTARY Hx Dermatological Problems: No - MUSCULOSKELETAL/RHEUMATOLOGICAL Hx Falls: No Other/Comment: LBKA - GASTROINTESTINAL Hx Gastrointestinal Disorders: Yes Hx Diverticulitis: Yes - GENITOURINARY/GYNECOLOGICAL Hx Genitourinary Disorders: No Hx Urinary Tract Infection: Yes Other/Comment: ADMITTING DX PYELONEPHRITIS - PSYCHIATRIC Hx Substance Use: No - SURGICAL HISTORY Hx Surgeries: Yes Hx Amputation: Yes Hx Vascular Surgery: Yes Hx Vascular Access Device: Yes - ANESTHESIA Hx Anesthesia: Yes Hx Anesthesia Reactions: No Hx Malignant Hyperthermia: No Has any member of the family had a problem w/ anesthesia?: No Meds Allergies/Adverse Reactions: Allergies Allergy/AdvReac Type Severity Reaction Status Date / Time No Known Allergies Allergy Verified 09/18/18 13:46 - Medications Medications: Current Medications Acetaminophen (Tylenol 325mg Tab) 2 mg PO Q6 PRN PRN Reason: Pain, moderate (4-7) Acetaminophen (Tylenol 325mg Tab) 650 mg PO Q6 PRN PRN Reason: Fever >100.4 F Last Admin: 09/19/18 03:27 Dose: 650 mg Aspirin (Aspirin) 325 mg PO DAILY [facility] Last Admin: 09/19/18 10:00 Dose: 325 mg Calcitriol (Rocaltrol) 0.25 mcg PO DAILY [facility] Last Admin: 09/19/18 10:01 Dose: 0.25 mcg Calcium Acetate (Phoslo) 667 mg PO TID [facility] Last Admin: 09/19/18 13:45 Dose: 667 mg Collagenase (Santyl) 0 gm TOP HS [facility] Famotidine (Pepcid) 20 mg PO DAILY [facility] Last Admin: 09/19/18 10:00 Dose: 20 mg Ferrous Sulfate (Feosol) 325 mg PO DAILY [facility] Last Admin: 09/19/18 10:00 Dose: 325 mg Finasteride (Proscar) 5 mg PO DAILY [facility] Last Admin: 09/19/18 10:00 Dose: 5 mg Guaifenesin (Robitussin) 200 mg PO Q4H PRN PRN Reason: Cough and congestion Heparin Sodium (Porcine) (Heparin) 5,000 units SC Q8 [facility] Last Admin: 09/19/18 13:45 Dose: 5,000 units Hydralazine HCl (Apresoline) 50 mg PO Q8 [facility] Last Admin: 09/19/18 13:45 Dose: 50 mg Hydrocortisone (Anusol-Hc) 0 gm NC BID [facility] Last Admin: 09/19/18 10:08 Dose: Not Given Piperacillin Sod/Tazobactam Sod (Zosyn 2.25 Gm Iv Premix) 2.25 gm in 50 mls @ 100 mls/hr IVPB Q6H [facility]; Protocol Last Admin: 09/19/18 13:44 Dose: 100 mls/hr Lactulose (Enulose) 20 gm PO HS PRN PRN Reason: Constipation Metoprolol Succinate (Toprol Xl) 50 mg PO BID [facility] Last Admin: 09/19/18 10:00 Dose: 50 mg Oxycodone/Acetaminophen (Percocet 5/325 Mg Tab) 1 tab PO Q4H PRN PRN Reason: Pain Stop: 09/21/18 20:42 Last Admin: 09/18/18 22:08 Dose: 1 tab [facility] Rosuvastatin Calcium (Crestor) 5 mg PO [facility] Last Admin: 09/18/18 22:06 Dose: 5 mg Physical Exam - Constitutional Appears: No Acute Distress - Head Exam Head Exam: NORMAL INSPECTION - Eye Exam Eye Exam: EOMI, PERRL - ENT Exam ENT Exam: Normal Oropharynx - Neck Exam Neck exam: Positive for: Normal Inspection. Negative for: Meningismus - Respiratory Exam Respiratory Exam: Decreased Breath Sounds, NORMAL BREATHING PATTERN - Cardiovascular Exam Cardiovascular Exam: REGULAR RHYTHM, +S1, +S2 - Extremities Exam Extremities exam: Positive for: pedal pulses present (left BKA. Right lower ex tremity laceration superficial and dry.). Negative for: calf tenderness, pedal edema - Neurological Exam Neurological exam: Alert, CN II-XII Intact, Oriented x3, Reflexes Normal - Psychiatric Exam Psychiatric exam: Normal Mood - Skin Skin Exam: Normal Color, Warm Results - Vital Signs Recent Vital Signs: Last Vital Signs Temp 99.5 F 09/19/18 07:29 Pulse 98 H 09/19/18 07:29 Resp 220 H 09/19/18 07:29 BP 108/60 09/19/18 07:29 Pulse Ox 99 09/19/18 07:29 - Labs Result Diagrams: 09/19/18 14:11 09/19/18 14:11 Labs: Laboratory Results - last 24 hr 09/18/18 09/18/18 09/18/18 15:03 15:03 15:04 WBC 14.5 H D RBC 3.53 L Hgb 11.0 L D Hct 33.3 L MCV 94.4 H D MCH 31.1 H MCHC 33.0 RDW 15.6 H Plt Count 98 L D MPV 9.5 Neut % (Auto) 82.6 H Lymph % (Auto) 5.1 L [place] % (Auto) 11.7 H Eos % (Auto) 0.1 Baso % (Auto) 0.5 Neut # (Auto) 11.9 H Lymph # (Auto) 0.7 L [place] # (Auto) 1.7 H Eos # (Auto) 0.0 Baso # (Auto) 0.1 Neutrophils % (Manual) 83 H Band Neutrophils % 2 Lymphocytes % (Manual) 3 L Monocytes % (Manual) 12 H Platelet Estimate Decreased L Anisocytosis (manual) Slight Sodium 137 Potassium 4.7 Chloride 98 Carbon Dioxide 22 Anion Gap 21 H BUN 44 H Creatinine 7.1 H Est GFR ( Amer) 9 Est GFR (Non-Af Amer) 8 POC Glucose (mg/dL) 124 H Random Glucose 128 H Calcium 8.3 L Total Bilirubin 1.4 H AST 25 ALT 22 Alkaline Phosphatase 108 Total Creatine Kinase 100 Total Protein 8.0 Albumin 4.2 Globulin 3.8 Albumin/Globulin Ratio 1.1 09/18/18 09/19/18 09/19/18 21:02 07:15 11:21 WBC RBC Hgb Hct MCV MCH MCHC RDW Plt Count MPV Neut % (Auto) Lymph % (Auto) [place] % (Auto) Eos % (Auto) Baso % (Auto) Neut # (Auto) Lymph # (Auto) [place] # (Auto) Eos # (Auto) Baso # (Auto) Neutrophils % (Manual) Band Neutrophils % Lymphocytes % (Manual) Monocytes % (Manual) Platelet Estimate Anisocytosis (manual) Sodium Potassium Chloride Carbon Dioxide Anion Gap BUN Creatinine Est GFR ( Amer) Est GFR (Non-Af Amer) POC Glucose (mg/dL) 261 H 179 H 287 H Random Glucose Calcium Total Bilirubin AST ALT Alkaline Phosphatase Total Creatine Kinase Total Protein Albumin Globulin Albumin/Globulin Ratio - Imaging and Cardiology Chest x-ray Status: Report reviewed by me (SEE REPORT.) Assessment & Plan (1) Abdominal pain Status: Acute (2) Fever Assessment and Plan: BLOOD CULTURES X2 DONE IN er-PENDING RESULTS .U/A AND URINE CULTURE PENDING. REPORTED PATIENT WAS ABLE TO PASS ONLY 10 CC OF URINE REFUSES TO BE STRAIGHT CATHETERIZED IT WAS ATTEMPTED IN THE ER BEFORE. Status: Acute (3) ESRD (end stage renal disease) on dialysis Assessment and Plan: PATIENT ON HEMODIALYSIS TTS. PATIENT DID UNDERGO TO HEMODIALYSIS ON 09/18/18 FOR 2.5 HOURS. PATIENT FOR HEMODIALYSIS IN A.M. Status: Acute (4) Peripheral vascular disease Assessment and Plan: PATIENT WITH LEFT BKA. RIGHT LOWER EXTREMITY SMALL LACERATION SIZE 1.5 CM DRY AND CLEAN. CONTINUE LOCAL WOUND CARE PER PODIATRY. Status: Acute (5) Diverticulitis Status: Acute - Assessment and Plan (Free Text) Plan: PLAN. PANCULTURES U/A URINE CULTURES. ESR CRP. CONTINUE iv ZOSYN 2.25 G iv PIGGYBACK EVERY 6 HOURLY 09/18/18. FOLLOW-UP CULTURES TO ADJUST ANTIBIOTICS. CASE DISCUSSED WITH THE STAFF. wILL FOLLOW ALONG WITH YOU.
[2018-09-19 14:15] LABS: BASO % 0.2 % (0.0-2.0); EOS # 0.1 K/uL (0.0-0.7); EOS % 1.1 % (0.0-4.0); HEMOGLOBIN 10.4 g/dL (12.0-18.0); LYMPH # 0.4 K/uL (1.0-4.3); LYMPH % 3.9 % (20.0-40.0); MEAN CELL VOLUME 94.2 fL (80.0-94.0); MEAN CORPUSCULAR HEMOGLOBIN 31.5 pg (27.0-31.0); MEAN CORPUSCULAR HGB CONC 33.5 g/dL (33.0-37.0); MONO # 0.9 K/uL (0.0-0.8); MONO % 8.5 % (0.0-10.0); NEUT % 86.3 % (50.0-75.0); PLATELET COUNT 95 K/uL (130-400); RED CELL DISTRIBUTION WIDTH 15.3 % (11.5-14.5); WHITE BLOOD COUNT 10.5 K/uL (4.8-10.8)
[2018-09-19 14:45] LABS: CALCIUM 8.1 mg/dl (8.6-10.4)
[2018-09-19 14:52] LABS: ANISOCYTOSIS SLIGHT; EOSINOPHIL 2 % (0-4); LYMPHOCYTE 3 % (20-40); MONOCYTE 7 % (0-10); NEUTROPHIL 88 % (50-75); PLATELET ESTIMATE DECREASED (NORMAL); TOTAL CELLS COUNTED 100
[2018-09-19 14:53] LABS: HYPOCHROMIC SLIGHT; OVALOCYTES SLIGHT; POLYCHROMIC SLIGHT
--- NOTE | 2018-09-19 15:11 | US ---
Date of service: 09/19/2018 PROCEDURE: Pelvic ultrasound HISTORY: obstruction COMPARISON: None TECHNIQUE: Standard protocol for this study/examination. FINDINGS: A decompressed urinary bladder is identified. IMPRESSION: No abnormal fluid collections or masses identified in the male pelvis.
[2018-09-20] MEDS: Piperacill/Tazo 2.25gm in Dex 2.25 GM/50 ML BAG IVPB SCH ×3 (04:36→21:16)
[2018-09-20 08:13] LABS: URINE BACTERIA MOD (<OCC); URINE BILIRUBIN NEGATIVE (NEGATIVE); URINE BLOOD 2+ (NEGATIVE); URINE CLARITY Turbid (Clear); URINE GLUCOSE (UA) NORMAL (Normal); URINE LEUKOCYTE ESTERASE 2+ Leu/uL (Negative); URINE PROTEIN 2+ mg/dL (NEGATIVE); WBC CLUMPS OCC /hpf
[2018-09-20 08:18] LABS: URINE COLOR BROWN (YELLOW)
--- NOTE | 2018-09-20 10:17 | CP.PCM.PN ---
Subjective - Date & Time of Evaluation Date of Evaluation: 09/20/18 Time of Evaluation: 10:16 - Subjective Subjective: pt was seen and examined during hemodialysis, uf goal is about 2.5 lit Objective - Vital Signs/Intake and Output Vital Signs (last 24 hours): Temp Pulse Resp BP Pulse Ox 98 F 78 18 140/75 95 09/20/18 09:15 09/20/18 09:52 09/20/18 09:52 09/20/18 10:00 09/20/18 09:15 Intake and Output: 09/20/18 09/20/18 06:59 18:59 Intake Total 300 340 Balance 300 340 - Medications Medications: Current Medications Acetaminophen (Tylenol 325mg Tab) 2 mg PO Q6 PRN PRN Reason: Pain, moderate (4-7) Acetaminophen (Tylenol 325mg Tab) 650 mg PO Q6 PRN PRN Reason: Fever >100.4 F Last Admin: 09/19/18 03:27 Dose: 650 mg Aspirin (Aspirin) 325 mg PO DAILY [facility] Last Admin: 09/19/18 10:00 Dose: 325 mg Calcitriol (Rocaltrol) 0.25 mcg PO DAILY [facility] Last Admin: 09/19/18 10:01 Dose: 0.25 mcg Calcium Acetate (Phoslo) 667 mg PO TID [facility] Last Admin: 09/19/18 20:37 Dose: 667 mg Collagenase (Santyl) 0 gm TOP HS [facility] Last Admin: 09/19/18 22:12 Dose: Not Given Epoetin Omi (Procrit) 10,000 unit IV [facility] Famotidine (Pepcid) 20 mg PO DAILY [facility] Last Admin: 09/19/18 10:00 Dose: 20 mg Ferrous Sulfate (Feosol) 325 mg PO DAILY [facility] Last Admin: 09/19/18 10:00 Dose: 325 mg Finasteride (Proscar) 5 mg PO DAILY [facility] Last Admin: 09/19/18 10:00 Dose: 5 mg Guaifenesin (Robitussin) 200 mg PO Q4H PRN PRN Reason: Cough and congestion Heparin Sodium (Porcine) (Heparin) 5,000 units SC Q8 [facility] Last Admin: 09/20/18 06:18 Dose: 5,000 units Hydralazine HCl (Apresoline) 50 mg PO Q8 [facility] Last Admin: 09/20/18 06:19 Dose: 50 mg Hydrocortisone (Anusol-Hc) 0 gm ID BID [facility] Last Admin: 09/19/18 20:39 Dose: Not Given Piperacillin Sod/Tazobactam Sod (Zosyn 2.25 Gm Iv Premix) 2.25 gm in 50 mls @ 100 mls/hr IVPB Q8H [facility]; Protocol Last Admin: 09/20/18 04:36 Dose: 100 mls/hr Lactic Acid (Lac-Hydrin 12% Lotion (225 G)) 0 gm EXT DAILY [facility] Lactulose (Enulose) 20 gm PO HS PRN PRN Reason: Constipation Metoprolol Succinate (Toprol Xl) 50 mg PO BID [facility] Last Admin: 09/19/18 20:37 Dose: 50 mg Oxycodone/Acetaminophen (Percocet 5/325 Mg Tab) 1 tab PO Q4H PRN PRN Reason: Pain Stop: 09/21/18 20:42 Last Admin: 09/18/18 22:08 Dose: 1 tab Phenazopyridine HCl (Pyridium) 200 mg PO TIDPC [facility] Last Admin: 09/20/18 08:20 Dose: 200 mg Rosuvastatin Calcium (Crestor) 5 mg PO HS [facility] Last Admin: 09/19/18 21:40 Dose: 5 mg - Labs Labs: 09/19/18 14:11 09/19/18 14:11 urine c/s+ ve for GNR - Constitutional Appears: Well, Non-toxic, No Acute Distress - Head Exam Head Exam: ATRAUMATIC - Eye Exam Eye Exam: EOMI, Normal appearance, PERRL Pupil Exam: NORMAL ACCOMODATION - ENT Exam ENT Exam: Mucous Membranes Moist - Neck Exam Neck Exam: Full ROM - Respiratory Exam Respiratory Exam: Clear to Ausculation Bilateral, NORMAL BREATHING PATTERN - Cardiovascular Exam Cardiovascular Exam: REGULAR RHYTHM, +S1, +S2 - GI/Abdominal Exam GI & Abdominal Exam: Soft, Normal Bowel Sounds - Rectal Exam Rectal Exam: Deferred - Extremities Exam Extremities Exam: Normal Inspection Additional comments: s/p left bka - Neurological Exam Neurological Exam: Alert, Awake, CN II-XII Intact, Normal Gait, Oriented x3 - Psychiatric Exam Psychiatric exam: Normal Affect, Normal Mood - Skin Skin Exam: Normal Color, Warm Assessment and Plan - Assessment and Plan (Free Text) Assessment: 73 yo AA male with pmh/o htn, dm esrdpvd, s/p left bka, s/p pacemeaker, bph was admitted with lower abd. pain, dysuria, frequency, low garde fever 1. ESRD 2. HTN 3. DM 4. frequecy / dysuria, fever r/o UTI check blood c/s, urine c/s c/w iv abx as per ID pt is being dilayzed, uf goal is 2.5 lit c/w current anti HTN meds low na, low K+diet c/w po4 binders Plan:
[2018-09-20] MEDS: Epoetin Alfa 10,000 unit/ml Dialysis IV SCH (10:34)
[2018-09-20] MEDS: Hydrocortisone 2.5% Rectal Cream(30 gm) PR SCH ×2 (10:56→21:16)
[2018-09-20] MEDS: Ammonium Lactate 12% Lotion (225 g) EXT SCH (10:57)
[2018-09-20] MEDS: Metoprolol Succinate 50 mg XL Tab PO SCH ×2 (10:58→17:29)
--- NOTE | 2018-09-20 13:04 | US ---
HISTORY: lower abdominal pain COMPARISON: CT of the abdomen and pelvis with contrast performed 02/10/18 TECHNIQUE: Sonographic evaluation of the abdomen. FINDINGS: Examination limited by habitus. LIVER: Measures 16.8 cm in sagittal dimension. Echogenic liver may be seen in setting of hepatic parenchymal disease or fatty infiltration. Anechoic avascular left hepatic lobe lesion consistent with a cyst measures approximately 1.0 x 0.9 x 1.1 cm. The main portal vein appears patent with normal directional flow. No intrahepatic bile duct dilatation. GALLBLADDER: Small gallstone at the gallbladder neck. No gallbladder wall thickening. Negative sonographic Bateman's sign as assessed by the laserist. COMMON BILE DUCT: Measures 8 mm. PANCREAS: Not well visualized. RIGHT KIDNEY: Measures 11.7 x 4.9 x 6.4 cm. Echogenic renal parenchyma. No hydronephrosis identified. 1.4 x 1.3 x 1.3 cm cyst. 1.1 cm midpole calculus. LEFT KIDNEY: Measures 11.6 x 5.2 x 5.4cm. Echogenic renal parenchyma. No obstructing calculus or hydronephrosis identified. 1.1 x 0.8 x 1.0 cm upper pole renal cyst. SPLEEN: Measures approximately 11.2 cm. AORTA: Limited views appear unremarkable. IVC: Limited views appear unremarkable. OTHER FINDINGS: None. IMPRESSION: Echogenic liver may be seen in setting of hepatic parenchymal disease or fatty infiltration. 1.1 cm left hepatic cyst. Cholelithiasis; small gallstone is evident at the gallbladder neck. No gallbladder wall thickening or pericholecystic edema. Negative sonographic Bateman's sign as assessed by the laserist. Mildly dilated common bile duct. Bilateral renal cysts. Echogenic renal parenchyma may be seen in setting of medical renal disease. Nonobstructing right renal calculus. Please note that heterogeneous enhancing lesion at the left upper pole kidney on CT performed 02/10/18 is not definitively imaged on the current examination. Preliminary impression was provided by [facility].
--- NOTE | 2018-09-20 13:35 | CP.PCM.PN ---
Subjective - Date & Time of Evaluation Date of Evaluation: 09/20/18 Time of Evaluation: 13:35 - Subjective Subjective: CHIEF COMPLAINTS TODAY : afebrile ,vss had HD today. c/o lower abdominal discomfort. ROS. HEENT : N. Resp : mild cough, no wheezing ,pleuritic CP ,or hemoptysis Cardio : No anginal CP, PND, orthopnea, palpitation GI : +ve LOWER ABDOMINAL PAIN , NO n/v ,diarrhea or GI bleeding . CHURN DRILLER : No headache, vertigo, focal deficit. Musculoskel : No joint swelling , Derm : No rash Psych : Normal affect. Ext : No swelling ,calf pain PE. Pt. is alert awake in no distress. V.S As noted in the chart Head ,ear nose,throat and eyes : Normal. Neck : Supple with normal carotids. Lungs: Clear air entry. Heart : S1 & S2 normal with S4. No murmur. Abd : MID TENDERNESS LOWER ABDOMEN with normal bowel sounds. Neuro : Moves all ext. LEFT BKA, RT LOWER EXTREMITY WITH A HEALING LACERATION, +VE DRESSING IN PLACE Ext : No edema with intact pulses.Non tender calves Derm : No rashes or decubitus ulcer. LABS/RADIOLOGY: WBC IMPROVING, URINE CULTURE +VE GNR U/A +VE PYURIA BLOOD CULTURES -VE X 24HRS. ASSESSMENT. SEPSIS URINARY HESITANCY UROSEPSIS GNR +VE. PVD /LT. BKA. ESRD ON HD TTS CAD. /PLAN : DISCONTINUE IV ZOSYN 2.25GM IV PB Q 8HRLY 09/18/18. START IV CEFEPIME 1GM IVPB Q 12 HRLY 09/20/19 1 DOSE IV AMIKACIN 500MG IVPB POST HD TODAY. F/U CULTURES TO ADJUST ABX. Objective - Vital Signs/Intake and Output Vital Signs (last 24 hours): Temp Pulse Resp BP Pulse Ox 98 F 86 18 102/55 L 95 09/20/18 12:45 09/20/18 12:45 09/20/18 12:45 09/20/18 12:45 09/20/18 12:45 Intake and Output: 09/20/18 09/20/18 06:59 18:59 Intake Total 300 340 Balance 300 340 - Medications Medications: Current Medications Acetaminophen (Tylenol 325mg Tab) 2 mg PO Q6 PRN PRN Reason: Pain, moderate (4-7) Acetaminophen (Tylenol 325mg Tab) 650 mg PO Q6 PRN PRN Reason: Fever >100.4 F Last Admin: 09/19/18 03:27 Dose: 650 mg Aspirin (Aspirin) 325 mg PO DAILY [facility] Last Admin: 09/20/18 10:57 Dose: Not Given Calcitriol (Rocaltrol) 0.25 mcg PO DAILY [facility] Last Admin: 09/20/18 10:58 Dose: Not Given Calcium Acetate (Phoslo) 667 mg PO TID [facility] Last Admin: 09/20/18 10:58 Dose: Not Given Epoetin Omi (Procrit) 10,000 unit IV MWF [facility] Last Admin: 09/20/18 10:34 Dose: 10,000 unit Famotidine (Pepcid) 20 mg PO DAILY [facility] Last Admin: 09/20/18 10:57 Dose: Not Given Ferrous Sulfate (Feosol) 325 mg PO DAILY [facility] Last Admin: 09/20/18 10:57 Dose: Not Given Finasteride (Proscar) 5 mg PO DAILY [facility] Last Admin: 09/20/18 10:58 Dose: Not Given Guaifenesin (Robitussin) 200 mg PO Q4H PRN PRN Reason: Cough and congestion Heparin Sodium (Porcine) (Heparin) 5,000 units SC Q8 [facility] Last Admin: 09/20/18 06:18 Dose: 5,000 units Hydralazine HCl (Apresoline) 50 mg PO Q8 [facility] Last Admin: 09/20/18 06:19 Dose: 50 mg Hydrocortisone (Anusol-Hc) 0 gm SD BID [facility] Last Admin: 09/20/18 10:56 Dose: Not Given Piperacillin Sod/Tazobactam Sod (Zosyn 2.25 Gm Iv Premix) 2.25 gm in 50 mls @ 100 mls/hr IVPB Q8H [facility]; Protocol Last Admin: 09/20/18 04:36 Dose: 100 mls/hr Lactic Acid (Lac-Hydrin 12% Lotion (225 G)) 0 gm EXT DAILY [facility] Last Admin: 09/20/18 10:57 Dose: Not Given Lactulose (Enulose) 20 gm PO DAILY [facility] Metoprolol Succinate (Toprol Xl) 50 mg PO BID [facility] Last Admin: 09/20/18 10:58 Dose: Not Given Oxycodone/Acetaminophen (Percocet 5/325 Mg Tab) 1 tab PO Q4H PRN PRN Reason: Pain Stop: 09/21/18 20:42 Last Admin: 09/18/18 22:08 Dose: 1 tab Phenazopyridine HCl (Pyridium) 200 mg PO TIDPC [facility] Last Admin: 09/20/18 08:20 Dose: 200 mg Rosuvastatin Calcium (Crestor) 5 mg PO HS [facility] Last Admin: 09/19/18 21:40 Dose: 5 mg - Labs Labs: 09/19/18 14:11 09/19/18 14:11 Assessment and Plan (1) Abdominal pain Status: Acute (2) Fever Status: Acute (3) ESRD (end stage renal disease) on dialysis Status: Acute (4) Peripheral vascular disease Status: Acute (5) Diverticulitis Status: Acute
--- NOTE | 2018-09-20 16:07 | CP.PCM.PN ---
Subjective - Date & Time of Evaluation Date of Evaluation: 09/20/18 Time of Evaluation: 16:05 - Subjective Subjective: Podiatry Progress Note for Dr. Stoll 73M seen in dialysis for right leg wound. Patient is AAO x 3 and NAD, resting comfortably in bed. Denies any acute overnight events or new pedal complaints. Denies any pain to his leg wound. Denies any recent N/V/F/C/CP/SOB/D Objective - Vital Signs/Intake and Output Vital Signs (last 24 hours): Temp Pulse Resp BP Pulse Ox 98 F 86 18 102/55 L 95 09/20/18 12:45 09/20/18 12:45 09/20/18 12:45 09/20/18 12:45 09/20/18 12:45 Intake and Output: 09/20/18 09/20/18 06:59 18:59 Intake Total 300 640 Balance 300 640 - Medications Medications: Current Medications Acetaminophen (Tylenol 325mg Tab) 2 mg PO Q6 PRN PRN Reason: Pain, moderate (4-7) Acetaminophen (Tylenol 325mg Tab) 650 mg PO Q6 PRN PRN Reason: Fever >100.4 F Last Admin: 09/19/18 03:27 Dose: 650 mg Aspirin (Aspirin) 325 mg PO DAILY [facility] Last Admin: 09/20/18 13:54 Dose: 325 mg Calcitriol (Rocaltrol) 0.25 mcg PO DAILY [facility] Last Admin: 09/20/18 13:54 Dose: 0.25 mcg Calcium Acetate (Phoslo) 667 mg PO TID [facility] Last Admin: 09/20/18 13:54 Dose: 667 mg Epoetin Omi (Procrit) 10,000 unit IV MWF [facility] Last Admin: 09/20/18 10:34 Dose: 10,000 unit Famotidine (Pepcid) 20 mg PO DAILY [facility] Last Admin: 09/20/18 13:55 Dose: 20 mg Ferrous Sulfate (Feosol) 325 mg PO DAILY [facility] Last Admin: 09/20/18 13:54 Dose: 325 mg Finasteride (Proscar) 5 mg PO DAILY [facility] Last Admin: 09/20/18 10:58 Dose: Not Given Guaifenesin (Robitussin) 200 mg PO Q4H PRN PRN Reason: Cough and congestion Heparin Sodium (Porcine) (Heparin) 5,000 units SC Q8 [facility] Last Admin: 09/20/18 13:55 Dose: 5,000 units Hydralazine HCl (Apresoline) 50 mg PO Q8 [facility] Last Admin: 09/20/18 13:55 Dose: 50 mg Hydrocortisone (Anusol-Hc) 0 gm [place] BID [facility] Last Admin: 09/20/18 10:56 Dose: Not Given Piperacillin Sod/Tazobactam Sod (Zosyn 2.25 Gm Iv Premix) 2.25 gm in 50 mls @ 100 mls/hr IVPB Q8H [facility]; Protocol Last Admin: 09/20/18 13:53 Dose: 100 mls/hr Amikacin Sulfate 500 mg/ (Dextrose) 102 mls @ 204 mls/hr IVPB ONCE ONE; Protocol Stop: 09/20/18 18:29 Lactic Acid (Lac-Hydrin 12% Lotion (225 G)) 0 gm EXT DAILY [facility] Last Admin: 09/20/18 10:57 Dose: Not Given Lactulose (Enulose) 20 gm PO DAILY [facility] Metoprolol Succinate (Toprol Xl) 50 mg PO BID [facility] Last Admin: 09/20/18 10:58 Dose: Not Given Oxycodone/Acetaminophen (Percocet 5/325 Mg Tab) 1 tab PO Q4H PRN PRN Reason: Pain Stop: 09/21/18 20:42 Last Admin: 09/18/18 22:08 Dose: 1 tab Phenazopyridine HCl (Pyridium) 200 mg PO TIDPC [facility] Last Admin: 09/20/18 13:53 Dose: 200 mg Rosuvastatin Calcium (Crestor) 5 mg PO HS [facility] Last Admin: 09/19/18 21:40 Dose: 5 mg - Labs Labs: 09/19/18 14:11 09/19/18 14:11 - Constitutional Appears: Well, Non-toxic, No Acute Distress - Extremities Exam Additional comments: RLE focused exam: Vascular: DP non-palpable, PT faintly palpable, cap refill > 3 seconds, Temperature gradient warm to warm, no edema noted Ortho: No pain upon palpation of ulceration site, MMT 5/5 to the RLE, L BKA Neuro: Epicritic and protective sensation grossly diminished Derm: Small ulceration noted to anterior aspect of R leg measuring approximately .[id number].5.[id number]. Wound base healing with no open lesions, no drainage, no malodor, no tunneling, no tracking, no erythema, no other clinical signs of infection. Diffuse xerosis to R lower extremity - Neurological Exam Neurological Exam: Alert, Awake, Oriented x3 - Psychiatric Exam Psychiatric exam: Normal Affect, Normal Mood Assessment and Plan - Assessment and Plan (Free Text) Assessment: 73M seen in dialysis for right leg wound Plan: Patient seen and evaluated with Dr. Stoll Afebrile Continue IV abx per ID No plan for surgical intervention at this time Wound dressed with betadine, DSD Podiatry will continue to follow while patient in house
--- NOTE | 2018-09-20 17:09 | PN ---
DATE: 09/20/2018 COVERING FOR: Emilio Israel MD SUBJECTIVE: The patient is currently undergoing hemodialysis. He reported to me that he is being constipated for past few days. He denies any chest pain or abdominal pain. PHYSICAL EXAMINATION: VITAL SIGNS: Blood pressure 127/69, heart rate 78, temperature 98, respirations 18. HEENT: Pale conjunctivae. CHEST: Clear. HEART: S1 and S2 regular. EXTREMITIES: Left [id number] amputation and dressing is applied to the right leg. LABORATORY DATA: Yesterday's SMA-7, sodium 134, potassium 4.9, chloride 95, CO2 of 22, glucose 111, BUN 66, creatinine 9.3. Yesterday his hemoglobin, hematocrit 10.4 and 31.1. White count 10.5, platelet count 95,000. Pelvic ultrasound, no abnormal fluid collection or mass. Testicular ultrasound, negative study for epididymitis, orchitis or torsion. EKG revealed sinus tachycardia right bundle branch block, anterior infarct and anteroseptal infarct of undermined age. ASSESSMENT: 1. End-stage renal disease, on hemodialysis. 2. Pyelonephritis. Urine culture is positive for gram-negative rods. Blood cultures negative after 24 hours. 3. Peripheral vascular disease status post left [id number] amputation. 4. Coronary artery disease and he is in cardiac catheterization performed in 12/2015. The patient was found to have single vessel disease with total occlusion very proximal segmental right coronary artery, which appear to be a total occlusion. There was normal left ventricular systolic function at that time and medical therapy was recommended. PLAN: Continue hydralazine 50 mg every 8 hours, aspirin 325 mg once a day, Crestor 20 mg once a day, subcutaneous heparin 5000 units every 8 hours, every 4 hours, PhosLo one tablet three times a day, Toprol-XL 50 mg twice a day, Zosyn 2.25 g intravenously every 8 hours and will start lactulose 20 mg orally daily. Roberto Mayer MD
[2018-09-20] MEDS ORDERED: Amikacin 500 MG in Dextrose 5% In Water 100 ML IVPB ONE (18:00)
[2018-09-20] MEDS: guaiFENesin 200 mg/10 ml Syrup UD PO PRN (21:50)
[2018-09-21] MEDS: Metoprolol Succinate 50 mg XL Tab PO SCH ×2 (09:22→17:36)
[2018-09-21] MEDS: Hydrocortisone 2.5% Rectal Cream(30 gm) PR SCH ×2 (09:24→17:36)
[2018-09-21] MEDS: Ammonium Lactate 12% Lotion (225 g) EXT SCH (10:44)
--- NOTE | 2018-09-21 12:49 | CP.PCM.PN ---
Subjective - Date & Time of Evaluation Date of Evaluation: 09/21/18 Time of Evaluation: 12:48 - Subjective Subjective: pt denies any sob, no cp, no nausea, no vomitings, still c/o dysuria Objective - Vital Signs/Intake and Output Vital Signs (last 24 hours): Temp Pulse Resp BP Pulse Ox 98.8 F 71 20 134/61 95 09/21/18 08:03 09/21/18 08:03 09/21/18 08:03 09/21/18 08:03 09/21/18 08:03 Intake and Output: 09/21/18 09/21/18 06:59 18:59 Intake Total 570 Balance 570 - Medications Medications: Current Medications Acetaminophen (Tylenol 325mg Tab) 2 mg PO Q6 PRN PRN Reason: Pain, moderate (4-7) Acetaminophen (Tylenol 325mg Tab) 650 mg PO Q6 PRN PRN Reason: Fever >100.4 F Last Admin: 09/19/18 03:27 Dose: 650 mg Aspirin (Aspirin) 325 mg PO DAILY [facility] Last Admin: 09/21/18 09:22 Dose: 325 mg Calcitriol (Rocaltrol) 0.25 mcg PO DAILY [facility] Last Admin: 09/21/18 09:23 Dose: 0.25 mcg Calcium Acetate (Phoslo) 667 mg PO TID [facility] Last Admin: 09/21/18 09:22 Dose: 667 mg Epoetin Omi (Procrit) 10,000 unit IV MWF [facility] Last Admin: 09/20/18 10:34 Dose: 10,000 unit Famotidine (Pepcid) 20 mg PO DAILY [facility] Last Admin: 09/21/18 09:23 Dose: 20 mg Ferrous Sulfate (Feosol) 325 mg PO DAILY [facility] Last Admin: 09/21/18 09:23 Dose: 325 mg Finasteride (Proscar) 5 mg PO DAILY [facility] Last Admin: 09/21/18 09:32 Dose: 5 mg Guaifenesin (Robitussin) 200 mg PO Q4H PRN PRN Reason: Cough and congestion Last Admin: 09/20/18 21:50 Dose: 200 mg Heparin Sodium (Porcine) (Heparin) 5,000 units SC Q8 [facility] Last Admin: 09/21/18 05:47 Dose: 5,000 units Hydralazine HCl (Apresoline) 50 mg PO Q8 [facility] Last Admin: 09/21/18 05:46 Dose: 50 mg Hydrocortisone (Anusol-Hc) 0 gm [place] BID [facility] Last Admin: 09/21/18 09:24 Dose: 1 applic Cefepime HCl (Maxipime Iv 1 Gm Premix) 1 gm in 50 mls @ 100 mls/hr IVPB Q12H [facility]; Protocol Lactic Acid (Lac-Hydrin 12% Lotion (225 G)) 0 gm EXT DAILY [facility] Last Admin: 09/21/18 10:44 Dose: 1 applic Lactulose (Enulose) 20 gm PO DAILY [facility] Last Admin: 09/21/18 09:21 Dose: 20 gm Metoprolol Succinate (Toprol Xl) 50 mg PO BID [facility] Last Admin: 09/21/18 09:22 Dose: 50 mg Oxycodone/Acetaminophen (Percocet 5/325 Mg Tab) 1 tab PO Q4H PRN PRN Reason: Pain Stop: 09/21/18 20:42 Last Admin: 09/18/18 22:08 Dose: 1 tab Phenazopyridine HCl (Pyridium) 200 mg PO TIDPC [facility] Last Admin: 09/21/18 08:13 Dose: 200 mg Rosuvastatin Calcium (Crestor) 5 mg PO HS [facility] Last Admin: 09/20/18 21:44 Dose: 5 mg - Labs Labs: 09/19/18 14:11 09/19/18 14:11 - Constitutional Appears: Well, Non-toxic, No Acute Distress - Head Exam Head Exam: ATRAUMATIC, NORMAL INSPECTION - Eye Exam Eye Exam: EOMI, Normal appearance, PERRL Pupil Exam: NORMAL ACCOMODATION - ENT Exam ENT Exam: Mucous Membranes Moist - Neck Exam Neck Exam: Full ROM, Normal Inspection - Respiratory Exam Respiratory Exam: Clear to Ausculation Bilateral, NORMAL BREATHING PATTERN - Cardiovascular Exam Cardiovascular Exam: REGULAR RHYTHM, +S1, +S2 - GI/Abdominal Exam GI & Abdominal Exam: Distended, Soft, Normal Bowel Sounds - Rectal Exam Rectal Exam: Deferred - Extremities Exam Additional comments: s/p left BKA - Neurological Exam Neurological Exam: Alert, Awake, CN II-XII Intact, Oriented x3 - Psychiatric Exam Psychiatric exam: Normal Mood - Skin Skin Exam: Normal Color Assessment and Plan - Assessment and Plan (Free Text) Assessment: 73 yo AA male with pmh/o htn, dm esrd, pvd, s/p left bka, s/p pacemeaker, diverticulosis, s/p diverticulitis, anemia, s/p c.diff , bph was admitted with lower abd. pain, dysuria, frequency, low garde fever 1. ESRD 2. HTN 3. DM 4. UTI urine c/s is + for GNR blood c/s ,no growth so far c/w iv abx as per ID s/p hD yesterday, uf goal is 2.5 lit c/w current anti HTN meds low na, low K+diet c/w po4 binders
[2018-09-21] MEDS: Cefepime IV 1 gm in Dextrose 1 GM/50 ML BAG IVPB SCH (13:21)
--- NOTE | 2018-09-21 15:28 | CP.PCM.PN ---
Subjective - Date & Time of Evaluation Date of Evaluation: 09/21/18 Time of Evaluation: 15:28 - Subjective Subjective: CHIEF COMPLAINTS TODAY : afebrile ,vss S/P HD today. NO NEW COMPLAINTS ROS. HEENT : N. Resp : mild cough, no wheezing ,pleuritic CP ,or hemoptysis Cardio : No anginal CP, PND, orthopnea, palpitation GI : +ve LOWER ABDOMINAL PAIN , NO n/v ,diarrhea or GI bleeding . [employer] : No headache, vertigo, focal deficit. Musculoskel : No joint swelling , Derm : No rash Psych : Normal affect. Ext : No swelling ,calf pain PE. Pt. is alert awake in no distress. V.S As noted in the chart Head ,ear nose,throat and eyes : Normal. Neck : Supple with normal carotids. Lungs: Clear air entry. Heart : S1 & S2 normal with S4. No murmur. Abd : MID TENDERNESS LOWER ABDOMEN with normal bowel sounds. Neuro : Moves all ext. LEFT BKA, RT LOWER EXTREMITY WITH A HEALING LACERATION, +VE DRESSING IN PLACE Ext : No edema with intact pulses.Non tender calves Derm : No rashes or decubitus ulcer. LABS/RADIOLOGY: WBC IMPROVING, URINE CULTURE +VE KLEIBSIELLA-PNEUMONIA S-CEFEPIME U/A +VE PYURIA BLOOD CULTURES -VE X TO DATE ASSESSMENT. SEPSIS URINARY HESITANCY UROSEPSIS KLEIBSIELLA-PNEUMONIAE PVD /LT. BKA. ESRD ON HD TTS CAD. /PLAN : DISCONTINUE IV ZOSYN 2.25GM IV PB Q 8HRLY 09/18/18. CONTINUE IV CEFEPIME 1GM IVPB Q 12 HRLY 09/21/18 1 DOSE IV AMIKACIN 500MG IVPB POST HD 09/20/18 F/U CULTURES TO ADJUST ABX. Objective - Vital Signs/Intake and Output Vital Signs (last 24 hours): Temp Pulse Resp BP Pulse Ox 98.8 F 71 20 134/61 95 09/21/18 08:03 09/21/18 08:03 09/21/18 08:03 09/21/18 08:03 09/21/18 08:03 Intake and Output: 09/21/18 09/21/18 06:59 18:59 Intake Total 570 300 Balance 570 300 - Medications Medications: Current Medications Acetaminophen (Tylenol 325mg Tab) 2 mg PO Q6 PRN PRN Reason: Pain, moderate (4-7) Acetaminophen (Tylenol 325mg Tab) 650 mg PO Q6 PRN PRN Reason: Fever >100.4 F Last Admin: 09/19/18 03:27 Dose: 650 mg Aspirin (Aspirin) 325 mg PO DAILY [facility] Last Admin: 09/21/18 09:22 Dose: 325 mg Calcitriol (Rocaltrol) 0.25 mcg PO DAILY [facility] Last Admin: 09/21/18 09:23 Dose: 0.25 mcg Calcium Acetate (Phoslo) 667 mg PO TID [facility] Last Admin: 09/21/18 13:03 Dose: 667 mg Epoetin Omi (Procrit) 10,000 unit IV MWF [facility] Last Admin: 09/20/18 10:34 Dose: 10,000 unit Famotidine (Pepcid) 20 mg PO DAILY [facility] Last Admin: 09/21/18 09:23 Dose: 20 mg Ferrous Sulfate (Feosol) 325 mg PO DAILY [facility] Last Admin: 09/21/18 09:23 Dose: 325 mg Finasteride (Proscar) 5 mg PO DAILY [facility] Last Admin: 09/21/18 09:32 Dose: 5 mg Guaifenesin (Robitussin) 200 mg PO Q4H PRN PRN Reason: Cough and congestion Last Admin: 09/20/18 21:50 Dose: 200 mg Heparin Sodium (Porcine) (Heparin) 5,000 units SC Q8 [facility] Last Admin: 09/21/18 13:02 Dose: 5,000 units Hydralazine HCl (Apresoline) 50 mg PO Q8 [facility] Last Admin: 09/21/18 13:03 Dose: 50 mg Hydrocortisone (Anusol-Hc) 0 gm [place] BID [facility] Last Admin: 09/21/18 09:24 Dose: 1 applic Cefepime HCl (Maxipime Iv 1 Gm Premix) 1 gm in 50 mls @ 100 mls/hr IVPB Q12H [facility]; Protocol Last Admin: 09/21/18 13:21 Dose: 100 mls/hr Lactic Acid (Lac-Hydrin 12% Lotion (225 G)) 0 gm EXT DAILY [facility] Last Admin: 09/21/18 10:44 Dose: 1 applic Lactulose (Enulose) 20 gm PO DAILY [facility] Last Admin: 09/21/18 09:21 Dose: 20 gm Metoprolol Succinate (Toprol Xl) 50 mg PO BID [facility] Last Admin: 09/21/18 09:22 Dose: 50 mg Oxycodone/Acetaminophen (Percocet 5/325 Mg Tab) 1 tab PO Q4H PRN PRN Reason: Pain Stop: 09/21/18 20:42 Last Admin: 09/18/18 22:08 Dose: 1 tab Phenazopyridine HCl (Pyridium) 200 mg PO TIDPC [facility] Last Admin: 09/21/18 13:04 Dose: 200 mg Rosuvastatin Calcium (Crestor) 5 mg PO HS [facility] Last Admin: 09/20/18 21:44 Dose: 5 mg - Labs Labs: 09/19/18 14:11 09/19/18 14:11 Assessment and Plan (1) Abdominal pain Status: Acute (2) Fever Status: Acute (3) ESRD (end stage renal disease) on dialysis Status: Acute (4) Peripheral vascular disease Status: Acute (5) Diverticulitis Status: Acute
--- NOTE | 2018-09-21 17:39 | PN ---
DATE: 09/21/2018 SUBJECTIVE: The patient has improved. He is still experiencing constipation. No chest pain. PHYSICAL EXAMINATION: VITAL SIGNS: Blood pressure 160/70, heart rate 72, temperature 98.7, respiration 22. HEENT: Pale conjunctivae. CHEST: Clear. HEART: S1 and S2 regular. EXTREMITIES: Left below-knee amputation. LABORATORY STUDIES: Today's blood sugar is 185 and 218. ASSESSMENT: 1. Pyelonephritis. Urine culture was positive for Klebsiella pneumoniae. Blood culture was negative for less than 48 hours. 2. End-stage renal disease, on hemodialysis. 3. Peripheral vascular disease, status post left below-knee amputation. 4. Known coronary artery disease with chronic total occlusion of right coronary artery. 5. Constipation. PLAN: 1. Continue hydralazine 50 mg every 8 hours. 2. Aspirin 325 mg once a day. 3. Crestor 5 mg once a day. 4. Heparin 5000 units every 8 hours. 5. IV Maxipime 1 g every 12 hours. 6. Toprol XL 50 mg daily. 7. I will start lactulose 20 mg p.o. now as an additional dose. Roberto Mayer MD
[2018-09-21] MEDS: guaiFENesin 200 mg/10 ml Syrup UD PO PRN (17:41)
[2018-09-22] MEDS: Cefepime IV 1 gm in Dextrose 1 GM/50 ML BAG IVPB SCH ×2 (00:44→14:06)
[2018-09-22] MEDS: guaiFENesin 200 mg/10 ml Syrup UD PO PRN (04:40)
[2018-09-22] MEDS ORDERED: Cefepime IV 1 gm in Dextrose 1 GM/50 ML BAG IVPB SCH (06:30)
--- NOTE | 2018-09-22 10:15 | CON ---
DATE: 09/20/2018 HISTORY OF PRESENT ILLNESS: The patient is a 73-year-old -Spanish male who was admitted to the hospital with fever and possible sepsis. The patient is on hemodialysis. When he was admitted, he was complaining of dysuria and urgency. No hematuria. The patient's white count is elevated. PHYSICAL EXAMINATION GENERAL: The patient is in no distress. ABDOMEN: No suprapubic fullness. No flank tenderness. GENITOURINARY: Testes in the scrotum. Penis within normal limits. IMAGING STUDIES: Pelvic ultrasound revealed no retention, totally compressed bladder. The patient is on antibiotic, needs to be treated for his infection. Follow up urine culture if possible. The patient is only voiding small quantity of urine daily. IMPRESSION: Sepsis, elevated white blood count. Find the source of infection. No evidence of any retention. PLAN: Follow up. Tata Hung MD
[2018-09-22 10:22] LABS: BASO % 0.6 % (0.0-2.0); EOS # 0.2 K/uL (0.0-0.7); EOS % 3.8 % (0.0-4.0); HEMOGLOBIN 9.9 g/dL (12.0-18.0); LYMPH # 0.6 K/uL (1.0-4.3); LYMPH % 12.2 % (20.0-40.0); MEAN CELL VOLUME 93.9 fL (80.0-94.0); MEAN CORPUSCULAR HEMOGLOBIN 30.6 pg (27.0-31.0); MEAN CORPUSCULAR HGB CONC 32.6 g/dL (33.0-37.0); MEAN PLATELET VOLUME 9.3 fL (7.2-11.7); MONO # 0.3 K/uL (0.0-0.8); MONO % 6.1 % (0.0-10.0); NEUT # 3.5 K/uL (1.8-7.0); NEUT % 77.3 % (50.0-75.0); NRBC % 0.1 % (0.0-2.0); RBC 3.22 Mil/uL (4.40-5.90); RED CELL DISTRIBUTION WIDTH 15.1 % (11.5-14.5)
[2018-09-22 10:24] LABS: WHITE BLOOD COUNT 4.6 K/uL (4.8-10.8)
[2018-09-22] MEDS: Hydrocortisone 2.5% Rectal Cream(30 gm) PR SCH ×2 (10:30→17:28)
[2018-09-22] MEDS: Ammonium Lactate 12% Lotion (225 g) EXT SCH (10:30)
[2018-09-22] MEDS: Metoprolol Succinate 50 mg XL Tab PO SCH ×2 (10:31→17:30)
[2018-09-22 10:50] LABS: ALBUMIN 3.6 g/dL (3.5-5.0); CALCIUM 8.2 mg/dl (8.6-10.4)
--- NOTE | 2018-09-22 12:06 | CP.PCM.PN ---
Subjective - Date & Time of Evaluation Date of Evaluation: 09/22/18 Time of Evaluation: 12:06 - Subjective Subjective: pt is seen and examined during hemodialysis, uf goal is about 3000 ml, no cp, no sob, still c/o dysuria and lower abdominal discomfort Objective - Vital Signs/Intake and Output Vital Signs (last 24 hours): Temp Pulse Resp BP Pulse Ox 98.1 F 71 16 135/62 97 09/22/18 09:20 09/22/18 09:20 09/22/18 09:20 09/22/18 11:50 09/22/18 09:20 Intake and Output: 09/22/18 09/22/18 06:59 18:59 Intake Total 350 Balance 350 - Medications Medications: Current Medications Acetaminophen (Tylenol 325mg Tab) 2 mg PO Q6 PRN PRN Reason: Pain, moderate (4-7) Acetaminophen (Tylenol 325mg Tab) 650 mg PO Q6 PRN PRN Reason: Fever >100.4 F Last Admin: 09/22/18 03:10 Dose: 650 mg Aspirin (Aspirin) 325 mg PO DAILY [facility] Last Admin: 09/22/18 10:30 Dose: Not Given Calcitriol (Rocaltrol) 0.25 mcg PO DAILY [facility] Last Admin: 09/22/18 10:31 Dose: Not Given Calcium Acetate (Phoslo) 667 mg PO TID [facility] Last Admin: 09/22/18 10:31 Dose: Not Given Epoetin Omi (Procrit) 10,000 unit IV MWF [facility] Last Admin: 09/20/18 10:34 Dose: 10,000 unit Famotidine (Pepcid) 20 mg PO DAILY [facility] Last Admin: 09/22/18 10:30 Dose: Not Given Ferrous Sulfate (Feosol) 325 mg PO DAILY [facility] Last Admin: 09/22/18 10:30 Dose: Not Given Finasteride (Proscar) 5 mg PO DAILY [facility] Last Admin: 09/22/18 10:31 Dose: Not Given Guaifenesin (Robitussin) 200 mg PO Q4H PRN PRN Reason: Cough and congestion Last Admin: 09/22/18 04:40 Dose: 200 mg Hydralazine HCl (Apresoline) 50 mg PO Q8 [facility] Last Admin: 09/22/18 05:55 Dose: 50 mg Hydrocortisone (Anusol-Hc) 0 gm [place] BID [facility] Last Admin: 09/22/18 10:30 Dose: Not Given Cefepime HCl (Maxipime Iv 1 Gm Premix) 1 gm in 50 mls @ 100 mls/hr IVPB Q12H [facility]; Protocol Last Admin: 09/22/18 00:44 Dose: 100 mls/hr Lactic Acid (Lac-Hydrin 12% Lotion (225 G)) 0 gm EXT DAILY [facility] Last Admin: 09/22/18 10:30 Dose: Not Given Lactulose (Enulose) 20 gm PO DAILY [facility] Last Admin: 09/22/18 10:30 Dose: Not Given Metoprolol Succinate (Toprol Xl) 50 mg PO BID [facility] Last Admin: 09/22/18 10:31 Dose: Not Given Phenazopyridine HCl (Pyridium) 200 mg PO TIDPC [facility] Last Admin: 09/22/18 08:36 Dose: 200 mg Rosuvastatin Calcium (Crestor) 5 mg PO HS [facility] Last Admin: 09/21/18 21:31 Dose: 5 mg - Labs Labs: 09/22/18 10:14 09/22/18 10:14 - Constitutional Appears: Well, Toxic, No Acute Distress - Head Exam Head Exam: ATRAUMATIC, NORMAL INSPECTION - Eye Exam Eye Exam: EOMI, Normal appearance, PERRL Pupil Exam: NORMAL ACCOMODATION - ENT Exam ENT Exam: Mucous Membranes Moist - Neck Exam Neck Exam: Full ROM - Respiratory Exam Respiratory Exam: Clear to Ausculation Bilateral, NORMAL BREATHING PATTERN - Cardiovascular Exam Cardiovascular Exam: REGULAR RHYTHM, +S1, +S2 - GI/Abdominal Exam GI & Abdominal Exam: Distended, Soft, Normal Bowel Sounds - Rectal Exam Rectal Exam: Deferred - Extremities Exam Additional comments: s/p left bka, pt has dressing to rt leg - Neurological Exam Neurological Exam: Alert, Awake, CN II-XII Intact, Oriented x3 - Psychiatric Exam Psychiatric exam: Normal Affect - Skin Skin Exam: Normal Color Assessment and Plan - Assessment and Plan (Free Text) Assessment: 73 yo AA male with pmh/o htn, dm esrd, pvd, s/p left bka, s/p pacemeaker, diverticulosis, s/p diverticulitis, anemia, s/p c.diff , bph was admitted with lower abd. pain, dysuria, frequency, low garde fever 1. ESRD 2. HTN 3. DM 4. UTI urine c/s is + for GNR blood c/s, no growth so far c/w iv abx as per ID c/w current anti HTN meds low na, low K+diet c/w po4 binders pt is being dialyzed, uf goal is 3 lit
[2018-09-22] MEDS: Epoetin Alfa 10,000 unit/ml Dialysis IV SCH (12:12)
[2018-09-22] MEDS ORDERED: Oxycodone/Acetaminophen 5/325 mg Tab PO PRN (12:31)
--- NOTE | 2018-09-22 13:09 | CP.PCM.PN ---
Subjective - Date & Time of Evaluation Date of Evaluation: 09/22/18 Time of Evaluation: 13:09 - Subjective Subjective: CHIEF COMPLAINTS TODAY : afebrile ,vss S/P HD TODAY NO NEW COMPLAINTS ROS. HEENT : N. Resp : mild cough, no wheezing ,pleuritic CP ,or hemoptysis Cardio : No anginal CP, PND, orthopnea, palpitation GI : +ve LOWER ABDOMINAL PAIN , NO n/v ,diarrhea or GI bleeding . 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 Musculoskel : No joint swelling , Derm : No rash Psych : Normal affect. Ext : No swelling ,calf pain PE. Pt. is alert awake in no distress. V.S As noted in the chart Head ,ear nose,throat and eyes : Normal. Neck : Supple with normal carotids. Lungs: Clear air entry. Heart : S1 & S2 normal with S4. No murmur. Abd :TENDERNESS LOWER ABDOMEN IMPROVING ,with normal bowel sounds. Neuro : Moves all ext. LEFT BKA, RT LOWER EXTREMITY WITH A HEALING LACERATION, +VE DRESSING IN PLACE Ext : No edema with intact pulses.Non tender calves Derm : No rashes or decubitus ulcer. LABS/RADIOLOGY: WBC IMPROVING, URINE CULTURE +VE KLEIBSIELLA-PNEUMONIA S-CEFEPIME U/A +VE PYURIA BLOOD CULTURES -VE X TO DATE ABD US/PELVIC US NOTED09/19 ASSESSMENT. SEPSIS URINARY HESITANCY UROSEPSIS KLEIBSIELLA-PNEUMONIAE +VE GALLSTONES/FATTY LIVER/MILDLY DILATED CBD/SMALL GS IN NECK OF GB PVD /LT. BKA. ESRD ON HD TTS NOW MWF CAD. /PLAN : CONTINUE IV CEFEPIME 1GM IVPB Q 12 HRLY 09/21/18 1 DOSE IV AMIKACIN 500MG IVPB POST HD 09/20/18 F/U REPEAT URINE CULTURE. HIDA SCAN GB R/O CHOLYCYSTITIS. Objective - Vital Signs/Intake and Output Vital Signs (last 24 hours): Temp Pulse Resp BP Pulse Ox 98.1 F 71 16 145/66 97 09/22/18 09:20 09/22/18 09:20 09/22/18 09:20 09/22/18 12:20 09/22/18 09:20 Intake and Output: 09/22/18 09/22/18 06:59 18:59 Intake Total 350 Balance 350 - Medications Medications: Current Medications Acetaminophen (Tylenol 325mg Tab) 2 mg PO Q6 PRN PRN Reason: Pain, moderate (4-7) Acetaminophen (Tylenol 325mg Tab) 650 mg PO Q6 PRN PRN Reason: Fever >100.4 F Last Admin: 09/22/18 03:10 Dose: 650 mg Aspirin (Aspirin) 325 mg PO DAILY [facility] Last Admin: 09/22/18 10:30 Dose: Not Given Calcitriol (Rocaltrol) 0.25 mcg PO DAILY [facility] Last Admin: 09/22/18 10:31 Dose: Not Given Calcium Acetate (Phoslo) 667 mg PO TID [facility] Last Admin: 09/22/18 10:31 Dose: Not Given Epoetin Omi (Procrit) 10,000 unit IV MWF [facility] Last Admin: 09/22/18 12:12 Dose: 10,000 unit Famotidine (Pepcid) 20 mg PO DAILY [facility] Last Admin: 09/22/18 10:30 Dose: Not Given Ferrous Sulfate (Feosol) 325 mg PO DAILY [facility] Last Admin: 09/22/18 10:30 Dose: Not Given Finasteride (Proscar) 5 mg PO DAILY [facility] Last Admin: 09/22/18 10:31 Dose: Not Given Guaifenesin (Robitussin) 200 mg PO Q4H PRN PRN Reason: Cough and congestion Last Admin: 09/22/18 04:40 Dose: 200 mg Hydralazine HCl (Apresoline) 50 mg PO Q8 [facility] Last Admin: 09/22/18 05:55 Dose: 50 mg Hydrocortisone (Anusol-Hc) 0 gm [place] BID [facility] Last Admin: 09/22/18 10:30 Dose: Not Given Cefepime HCl (Maxipime Iv 1 Gm Premix) 1 gm in 50 mls @ 100 mls/hr IVPB Q12H [facility]; Protocol Last Admin: 09/22/18 00:44 Dose: 100 mls/hr Lactic Acid (Lac-Hydrin 12% Lotion (225 G)) 0 gm EXT DAILY [facility] Last Admin: 09/22/18 10:30 Dose: Not Given Lactulose (Enulose) 20 gm PO DAILY [facility] Last Admin: 09/22/18 10:30 Dose: Not Given Metoprolol Succinate (Toprol Xl) 50 mg PO BID [facility] Last Admin: 09/22/18 10:31 Dose: Not Given Oxycodone/Acetaminophen (Percocet 5/325 Mg Tab) 1 tab PO Q6H PRN PRN Reason: Pain, moderate (4-7) Stop: 09/25/18 12:32 Phenazopyridine HCl (Pyridium) 200 mg PO TIDPC [facility] Last Admin: 09/22/18 08:36 Dose: 200 mg Rosuvastatin Calcium (Crestor) 5 mg PO HS [facility] Last Admin: 09/21/18 21:31 Dose: 5 mg - Labs Labs: 09/22/18 10:14 09/22/18 10:14 Assessment and Plan (1) Abdominal pain Status: Acute (2) Fever Status: Acute (3) ESRD (end stage renal disease) on dialysis Status: Acute (4) Peripheral vascular disease Status: Acute (5) Diverticulitis Status: Acute
--- NOTE | 2018-09-22 17:10 | CP.PCM.PN ---
Subjective - Date & Time of Evaluation Date of Evaluation: 09/22/18 Time of Evaluation: 17:09 - Subjective Subjective: Podiatry Progress Note for Dr. Stoll 73M seen in dialysis for right leg wound. Patient is AAO x 3 and NAD, resting comfortably in bed. Denies any acute overnight events or new pedal complaints. Denies any pain to his leg wound. Denies any recent N/V/F/C/CP/SOB/D Objective - Vital Signs/Intake and Output Vital Signs (last 24 hours): Temp Pulse Resp BP Pulse Ox 97.9 F 92 H 20 136/67 95 09/22/18 12:50 09/22/18 14:05 09/22/18 14:05 09/22/18 14:05 09/22/18 12:50 Intake and Output: 09/22/18 09/22/18 06:59 18:59 Intake Total 350 410 Balance 350 410 - Medications Medications: Current Medications Acetaminophen (Tylenol 325mg Tab) 2 mg PO Q6 PRN PRN Reason: Pain, moderate (4-7) Acetaminophen (Tylenol 325mg Tab) 650 mg PO Q6 PRN PRN Reason: Fever >100.4 F Last Admin: 09/22/18 03:10 Dose: 650 mg Aspirin (Aspirin) 325 mg PO DAILY [facility] Last Admin: 09/22/18 10:30 Dose: Not Given Calcitriol (Rocaltrol) 0.25 mcg PO DAILY [facility] Last Admin: 09/22/18 10:31 Dose: Not Given Calcium Acetate (Phoslo) 667 mg PO TID [facility] Last Admin: 09/22/18 14:06 Dose: 667 mg Epoetin Omi (Procrit) 10,000 unit IV MWF [facility] Last Admin: 09/22/18 12:12 Dose: 10,000 unit Famotidine (Pepcid) 20 mg PO DAILY [facility] Last Admin: 09/22/18 10:30 Dose: Not Given Ferrous Sulfate (Feosol) 325 mg PO DAILY [facility] Last Admin: 09/22/18 10:30 Dose: Not Given Finasteride (Proscar) 5 mg PO DAILY [facility] Last Admin: 09/22/18 10:31 Dose: Not Given Guaifenesin (Robitussin) 200 mg PO Q4H PRN PRN Reason: Cough and congestion Last Admin: 09/22/18 04:40 Dose: 200 mg Hydralazine HCl (Apresoline) 50 mg PO Q8 [facility] Last Admin: 09/22/18 14:06 Dose: 50 mg Hydrocortisone (Anusol-Hc) 0 gm [place] BID [facility] Last Admin: 09/22/18 10:30 Dose: Not Given Cefepime HCl (Maxipime Iv 1 Gm Premix) 1 gm in 50 mls @ 100 mls/hr IVPB Q12H [facility]; Protocol Last Admin: 09/22/18 14:06 Dose: 100 mls/hr Lactic Acid (Lac-Hydrin 12% Lotion (225 G)) 0 gm EXT DAILY [facility] Last Admin: 09/22/18 10:30 Dose: Not Given Lactulose (Enulose) 20 gm PO DAILY [facility] Last Admin: 09/22/18 10:30 Dose: Not Given Metoprolol Succinate (Toprol Xl) 50 mg PO BID [facility] Last Admin: 09/22/18 10:31 Dose: Not Given Oxycodone/Acetaminophen (Percocet 5/325 Mg Tab) 1 tab PO Q6H PRN PRN Reason: Pain, moderate (4-7) Stop: 09/25/18 12:32 Phenazopyridine HCl (Pyridium) 200 mg PO TIDPC [facility] Last Admin: 09/22/18 14:06 Dose: 200 mg Rosuvastatin Calcium (Crestor) 5 mg PO HS [facility] Last Admin: 09/21/18 21:31 Dose: 5 mg - Labs Labs: 09/22/18 10:14 09/22/18 10:14 - Constitutional Appears: Well, Non-toxic - Head Exam Head Exam: ATRAUMATIC - Extremities Exam Additional comments: RLE focused exam: Vascular: DP non-palpable, PT faintly palpable, cap refill > 3 seconds, Temperature gradient warm to warm, no edema noted Ortho: No pain upon palpation of ulceration site, MMT 5/5 to the RLE, L BKA Neuro: Epicritic and protective sensation grossly diminished Derm: Small ulceration noted to anterior aspect of R leg measuring approximately .[id number]. Wound base healing with no open lesions, no drainage, no malodor, no tunneling, no tracking, no erythema, no other clinical signs of infection. Diffuse xerosis to R lower extremity Assessment and Plan - Assessment and Plan (Free Text) Assessment: 73M seen in dialysis for right leg wound Plan: Patient seen and evaluated with Dr. Stoll Afebrile Continue IV abx per ID No plan for surgical intervention at this time Wound dressed with betadine, DSD Podiatry will continue to follow while patient in house
--- NOTE | 2018-09-22 17:49 | PN ---
DATE: 09/22/2018 SUBJECTIVE: The patient is currently undergoing hemodialysis. He is experiencing severe penile pain. Constipation has improved. PHYSICAL EXAMINATION: VITAL SIGNS: Blood pressure 145/66, heart rate 71, temperature 98.1, respirations 16. HEENT: Pale conjunctivae. CHEST: Clear. HEART: S1 and S2 regular. EXTREMITIES: Left below-knee amputation and the dressing of the right leg was changed today. LABORATORY DATA: Hemoglobin and hematocrit 9.9 and 30.2, white count 4.6, platelet count 120,000. SMA-7: Sodium 134, potassium 3.4, chloride 96, CO2 of 27, glucose 107, BUN 47, creatinine 7.4. ASSESSMENT: 1. Klebsiella pneumonia urinary tract infection. 2. Coronary artery disease with known total occlusion of the right coronary artery. 3. End-stage renal disease, on hemodialysis. 4. Peripheral vascular disease status post left below-knee amputation. RECOMMENDATIONS: Continue hydralazine 50 mg every 8 hours, Crestor at 5 mg once a day, IV cefepime at 1 g every 12 hours, Toprol XL at 50 mg twice a day, start Percocet at one tablet every 4 hours p.r.n. for pain. Roberto Mayer MD
[2018-09-23] MEDS: Cefepime IV 1 gm in Dextrose 1 GM/50 ML BAG IVPB SCH ×2 (00:41→12:59)
[2018-09-23] MEDS: Ammonium Lactate 12% Lotion (225 g) EXT SCH (10:05)
[2018-09-23] MEDS: Metoprolol Succinate 50 mg XL Tab PO SCH ×2 (10:26→17:49)
--- NOTE | 2018-09-23 12:46 | NM ---
Date of service: 09/23/2018 PROCEDURE: Nuclear Medicine Hepatobiliary Scan HISTORY: +VE GALLSTONES/MILDLY DILATED CBD. COMPARISON: None available. TECHNIQUE: 6.3 mCi of technetium 99m Mebrofenin was administered intravenously. Planar images of the abdomen were obtained at 5 min intervals to 60 mins. Delayed images were also obtained. FINDINGS: LIVER: Timely and homogenous uptake. COMMON BILE DUCT: identified at 10 mins. GALLBLADDER: identified at 20 mins. SMALL BOWEL: Identified at 15 mins. IMPRESSION: Normal Hepatobiliary Scan. The cystic duct is patent.
--- NOTE | 2018-09-23 14:37 | CP.PCM.PN ---
Subjective - Date & Time of Evaluation Date of Evaluation: 09/23/18 Time of Evaluation: 14:37 - Subjective Subjective: CHIEF COMPLAINTS TODAY : afebrile ,vss denies lower abdominal pain denies further dysuria ROS. HEENT : N. Resp : mild cough, no wheezing ,pleuritic CP ,or hemoptysis Cardio : No anginal CP, PND, orthopnea, palpitation GI : +ve LOWER ABDOMINAL PAIN , NO n/v ,diarrhea or GI bleeding . 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 Musculoskel : No joint swelling , Derm : No rash Psych : Normal affect. Ext : No swelling ,calf pain PE. Pt. is alert awake in no distress. V.S As noted in the chart Head ,ear nose,throat and eyes : Normal. Neck : Supple with normal carotids. Lungs: Clear air entry. Heart : S1 & S2 normal with S4. No murmur. Abd :LOWER ABDOMEN -ve tenderness ,with normal bowel sounds. Neuro : Moves all ext. LEFT BKA, RT LOWER EXTREMITY WITH A HEALING LACERATION, +VE DRESSING IN PLACE Ext : No edema with intact pulses.Non tender calves Derm : No rashes or decubitus ulcer. LABS/RADIOLOGY: hida scan 09/23/18 normal. cystic duct patent WBC IMPROVING, URINE CULTURE +VE KLEIBSIELLA-PNEUMONIA S-CEFEPIME U/A +VE PYURIA BLOOD CULTURES -VE X TO DATE ABD US/PELVIC US NOTED09/19 ASSESSMENT. SEPSIS URINARY HESITANCY UROSEPSIS KLEIBSIELLA-PNEUMONIAE +VE GALLSTONES/FATTY LIVER/MILDLY DILATED CBD/SMALL GS IN NECK OF GB (hida -ve ) PVD /LT. BKA. ESRD ON HD TTS NOW MWF CAD. /PLAN : CONTINUE IV CEFEPIME 1GM IVPB Q 12 HRLY 09/21/18 for now. 1 DOSE IV AMIKACIN 500MG IVPB POST HD 09/20/18 F/U REPEAT URINE CULTURE.-pending CPM. Objective - Vital Signs/Intake and Output Vital Signs (last 24 hours): Temp Pulse Resp BP Pulse Ox 98.9 F 79 20 135/50 L 97 09/23/18 08:01 09/23/18 08:01 09/23/18 08:01 09/23/18 08:01 09/23/18 08:01 Intake and Output: 09/23/18 09/23/18 06:59 18:59 Intake Total 500 Balance 500 - Medications Medications: Current Medications Acetaminophen (Tylenol 325mg Tab) 2 mg PO Q6 PRN PRN Reason: Pain, moderate (4-7) Acetaminophen (Tylenol 325mg Tab) 650 mg PO Q6 PRN PRN Reason: Fever >100.4 F Last Admin: 09/23/18 11:39 Dose: 650 mg Aspirin (Aspirin) 325 mg PO DAILY [facility] Last Admin: 09/23/18 10:27 Dose: 325 mg Calcitriol (Rocaltrol) 0.25 mcg PO DAILY [facility] Last Admin: 09/23/18 10:28 Dose: 0.25 mcg Calcium Acetate (Phoslo) 667 mg PO TID [facility] Last Admin: 09/23/18 14:21 Dose: 667 mg Epoetin Moi (Procrit) 10,000 unit IV MWF [facility] Last Admin: 09/22/18 12:12 Dose: 10,000 unit Famotidine (Pepcid) 20 mg PO DAILY [facility] Last Admin: 09/23/18 10:27 Dose: 20 mg Ferrous Sulfate (Feosol) 325 mg PO DAILY [facility] Last Admin: 09/23/18 10:27 Dose: 325 mg Finasteride (Proscar) 5 mg PO DAILY [facility] Last Admin: 09/23/18 10:27 Dose: 5 mg Guaifenesin (Robitussin) 200 mg PO Q4H PRN PRN Reason: Cough and congestion Last Admin: 09/22/18 04:40 Dose: 200 mg Hydralazine HCl (Apresoline) 50 mg PO Q8 [facility] Last Admin: 09/23/18 14:21 Dose: 50 mg Hydrocortisone (Anusol-Hc) 0 gm [place] BID [facility] Last Admin: 09/22/18 17:28 Dose: 1 applic Cefepime HCl (Maxipime Iv 1 Gm Premix) 1 gm in 50 mls @ 100 mls/hr IVPB Q12H [facility]; Protocol Last Admin: 09/23/18 12:59 Dose: 100 mls/hr Lactic Acid (Lac-Hydrin 12% Lotion (225 G)) 0 gm EXT DAILY [facility] Last Admin: 09/23/18 10:05 Dose: 1 applic Lactulose (Enulose) 20 gm PO DAILY [facility] Last Admin: 09/23/18 10:27 Dose: 20 gm Metoprolol Succinate (Toprol Xl) 50 mg PO BID [facility] Last Admin: 09/23/18 10:26 Dose: 50 mg Oxycodone/Acetaminophen (Percocet 5/325 Mg Tab) 1 tab PO Q6H PRN PRN Reason: Pain, moderate (4-7) Stop: 09/25/18 12:32 Phenazopyridine HCl (Pyridium) 200 mg PO TIDPC [facility] Last Admin: 09/23/18 13:02 Dose: 200 mg Rosuvastatin Calcium (Crestor) 5 mg PO HS [facility] Last Admin: 09/22/18 21:46 Dose: 5 mg - Labs Labs: 09/22/18 10:14 09/22/18 10:14 Assessment and Plan (1) Abdominal pain Status: Acute (2) Fever Status: Acute (3) ESRD (end stage renal disease) on dialysis Status: Acute (4) Peripheral vascular disease Status: Acute (5) Diverticulitis Status: Acute
--- NOTE | 2018-09-23 16:21 | CP.PCM.PN ---
Subjective - Date & Time of Evaluation Date of Evaluation: 09/23/18 Time of Evaluation: 16:21 - Subjective Subjective: pt denies any sob, no cp, no abd. pain, no dysuria feeling much better Objective - Vital Signs/Intake and Output Vital Signs (last 24 hours): Temp Pulse Resp BP Pulse Ox 98.9 F 72 20 138/64 97 09/23/18 08:01 09/23/18 09:00 09/23/18 08:01 09/23/18 09:00 09/23/18 08:01 Intake and Output: 09/23/18 09/23/18 06:59 18:59 Intake Total 500 Balance 500 - Medications Medications: Current Medications Acetaminophen (Tylenol 325mg Tab) 2 mg PO Q6 PRN PRN Reason: Pain, moderate (4-7) Acetaminophen (Tylenol 325mg Tab) 650 mg PO Q6 PRN PRN Reason: Fever >100.4 F Last Admin: 09/23/18 11:39 Dose: 650 mg Aspirin (Aspirin) 325 mg PO DAILY [facility] Last Admin: 09/23/18 10:27 Dose: 325 mg Calcitriol (Rocaltrol) 0.25 mcg PO DAILY [facility] Last Admin: 09/23/18 10:28 Dose: 0.25 mcg Calcium Acetate (Phoslo) 667 mg PO TID [facility] Last Admin: 09/23/18 14:21 Dose: 667 mg Epoetin Omi (Procrit) 10,000 unit IV MWF [facility] Last Admin: 09/22/18 12:12 Dose: 10,000 unit Famotidine (Pepcid) 20 mg PO DAILY [facility] Last Admin: 09/23/18 10:27 Dose: 20 mg Ferrous Sulfate (Feosol) 325 mg PO DAILY [facility] Last Admin: 09/23/18 10:27 Dose: 325 mg Finasteride (Proscar) 5 mg PO DAILY [facility] Last Admin: 09/23/18 10:27 Dose: 5 mg Guaifenesin (Robitussin) 200 mg PO Q4H PRN PRN Reason: Cough and congestion Last Admin: 09/22/18 04:40 Dose: 200 mg Hydralazine HCl (Apresoline) 50 mg PO Q8 [facility] Last Admin: 09/23/18 14:21 Dose: 50 mg Hydrocortisone (Anusol-Hc) 0 gm [place] BID [facility] Last Admin: 09/22/18 17:28 Dose: 1 applic Cefepime HCl (Maxipime Iv 1 Gm Premix) 1 gm in 50 mls @ 100 mls/hr IVPB Q12H [facility]; Protocol Last Admin: 09/23/18 12:59 Dose: 100 mls/hr Lactic Acid (Lac-Hydrin 12% Lotion (225 G)) 0 gm EXT DAILY [facility] Last Admin: 09/23/18 10:05 Dose: 1 applic Lactulose (Enulose) 20 gm PO DAILY [facility] Last Admin: 09/23/18 10:27 Dose: 20 gm Metoprolol Succinate (Toprol Xl) 50 mg PO BID [facility] Last Admin: 09/23/18 10:26 Dose: 50 mg Oxycodone/Acetaminophen (Percocet 5/325 Mg Tab) 1 tab PO Q6H PRN PRN Reason: Pain, moderate (4-7) Stop: 09/25/18 12:32 Phenazopyridine HCl (Pyridium) 200 mg PO TIDPC [facility] Last Admin: 09/23/18 13:02 Dose: 200 mg Rosuvastatin Calcium (Crestor) 5 mg PO HS [facility] Last Admin: 09/22/18 21:46 Dose: 5 mg - Labs Labs: 09/22/18 10:14 09/22/18 10:14 - Constitutional Appears: Well, Non-toxic, No Acute Distress - Head Exam Head Exam: ATRAUMATIC, NORMAL INSPECTION, NORMOCEPHALIC - Eye Exam Eye Exam: EOMI, Normal appearance, PERRL Pupil Exam: NORMAL ACCOMODATION - ENT Exam ENT Exam: Mucous Membranes Moist - Neck Exam Neck Exam: Full ROM - Respiratory Exam Respiratory Exam: Clear to Ausculation Bilateral, NORMAL BREATHING PATTERN - Cardiovascular Exam Cardiovascular Exam: REGULAR RHYTHM, +S1, +S2 - GI/Abdominal Exam GI & Abdominal Exam: Soft, Diminished Bowel Sounds, Normal Bowel Sounds - Extremities Exam Additional comments: s/p left BKA - Neurological Exam Neurological Exam: Alert, Awake, CN II-XII Intact, Oriented x3 - Skin Skin Exam: Normal Color Assessment and Plan - Assessment and Plan (Free Text) Assessment: 73 yo AA male with pmh/o htn, dm esrd, pvd, s/p left bka, s/p pacemaker, diverticulosis, s/p diverticulitis, anemia, s/p c.diff , bph was admitted with lower abd. pain, dysuria, frequency, low garde fever 1. ESRD 2. HTN 3. DM 4. UTI urine c/s is + for GNR, identified as K. pneumonia blood c/s, no growth so far c/w iv abx as per ID c/w current anti HTN meds low na, low K+diet c/w po4 binders
[2018-09-23] MEDS: Hydrocortisone 2.5% Rectal Cream(30 gm) PR SCH (17:53)
--- NOTE | 2018-09-23 21:33 | PN ---
DATE: 09/23/2018 SUBJECTIVE: The patient's penile pain and dysuria have improved. He denies abdominal pain. He underwent hepatobiliary scan, which was a normal study with patent cystic duct. PHYSICAL EXAMINATION: VITAL SIGNS: Blood pressure 138/64, heart rate 72, temperature 98.9, respirations 20. HEENT: Pale conjunctivae. CHEST: Clear. HEART: S1, S2 regular. EXTREMITIES: Left below-knee amputation. ASSESSMENT: 1. End-stage renal disease, on hemodialysis. 2. Urinary tract infection with Klebsiella pneumoniae. 3. Coronary artery disease with known total occlusion of the right coronary artery. 4. Peripheral vascular disease, status post left below-knee amputation. PLAN: Continue current hydralazine 50 mg every 8 hours, aspirin 325 mg once a day, Crestor at 5 mg once a day, at 20 mg once a day, Feosol 1 tablet daily, IV cefepime at 1 g every 12 hours, PhosLo 1 tablet t.i.d., Procrit 10,000 units intravenously Tuesday, Tuesday, and Tuesday, mg t.i.d., Toprol-XL 50 mg once a day, Tylenol 650 mg every 6 hours p.r.n. Roberto Mayer MD
[2018-09-24] MEDS: Cefepime IV 1 gm in Dextrose 1 GM/50 ML BAG IVPB SCH (02:02)
[2018-09-24] MEDS: Metoprolol Succinate 50 mg XL Tab PO SCH ×2 (09:33→18:24)
[2018-09-24] MEDS: Ammonium Lactate 12% Lotion (225 g) EXT SCH (09:34)
--- NOTE | 2018-09-24 13:30 | CP.PCM.PN ---
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 pt is arousable, confused, moving all extremities, following simple commands pt is usually aa ox 3 Objective - Vital Signs/Intake and Output Vital Signs (last 24 hours): Temp Pulse Resp BP Pulse Ox 98.5 F 71 20 158/70 H 95 09/24/18 08:39 09/24/18 08:39 09/24/18 08:39 09/24/18 08:39 09/24/18 08:39 Intake and Output: 09/24/18 09/24/18 06:59 18:59 Intake Total 300 290 Balance 300 290 - Medications Medications: Current Medications Acetaminophen (Tylenol 325mg Tab) 2 mg PO Q6 PRN PRN Reason: Pain, moderate (4-7) Acetaminophen (Tylenol 325mg Tab) 650 mg PO Q6 PRN PRN Reason: Fever >100.4 F Last Admin: 09/23/18 11:39 Dose: 650 mg Aspirin (Aspirin) 325 mg PO DAILY [facility] Last Admin: 09/24/18 09:33 Dose: 325 mg Calcitriol (Rocaltrol) 0.25 mcg PO DAILY [facility] Last Admin: 09/24/18 09:34 Dose: 0.25 mcg Calcium Acetate (Phoslo) 667 mg PO TID [facility] Last Admin: 09/24/18 09:33 Dose: 667 mg Epoetin Omi (Procrit) 10,000 unit IV MWF [facility] Last Admin: 09/22/18 12:12 Dose: 10,000 unit Famotidine (Pepcid) 20 mg PO DAILY [facility] Last Admin: 09/24/18 09:33 Dose: 20 mg Ferrous Sulfate (Feosol) 325 mg PO DAILY [facility] Last Admin: 09/24/18 09:33 Dose: 325 mg Finasteride (Proscar) 5 mg PO DAILY [facility] Last Admin: 09/24/18 09:33 Dose: 5 mg Guaifenesin (Robitussin) 200 mg PO Q4H PRN PRN Reason: Cough and congestion Last Admin: 09/22/18 04:40 Dose: 200 mg Hydralazine HCl (Apresoline) 50 mg PO Q8 [facility] Last Admin: 09/24/18 05:39 Dose: 50 mg Hydrocortisone (Anusol-Hc) 0 gm [place] BID [facility] Last Admin: 09/23/18 17:53 Dose: 1 applic Cefepime HCl (Maxipime Iv 1 Gm Premix) 1 gm in 50 mls @ 100 mls/hr IVPB Q12H [facility]; Protocol Last Admin: 09/24/18 02:02 Dose: 100 mls/hr Vancomycin HCl 1 gm/ Sodium (Chloride) 250 mls @ 166.7 mls/hr IVPB STAT [facility]; Protocol Stop: 09/24/18 14:29 Lactic Acid (Lac-Hydrin 12% Lotion (225 G)) 0 gm EXT DAILY [facility] Last Admin: 09/24/18 09:34 Dose: 1 applic Lactulose (Enulose) 20 gm PO DAILY [facility] Last Admin: 09/24/18 09:32 Dose: 20 gm Metoprolol Succinate (Toprol Xl) 50 mg PO BID [facility] Last Admin: 09/24/18 09:33 Dose: 50 mg Phenazopyridine HCl (Pyridium) 200 mg PO TIDPC [facility] Last Admin: 09/24/18 09:33 Dose: 200 mg Rosuvastatin Calcium (Crestor) 5 mg PO HS [facility] Last Admin: 09/23/18 22:03 Dose: 5 mg - Labs Labs: 09/22/18 10:14 09/22/18 10:14 - Constitutional Appears: Well, Non-toxic, No Acute Distress - Head Exam Head Exam: ATRAUMATIC, NORMAL INSPECTION - Eye Exam Eye Exam: EOMI, Normal appearance, PERRL Pupil Exam: NORMAL ACCOMODATION - ENT Exam ENT Exam: Mucous Membranes Moist - Neck Exam Neck Exam: Full ROM, Normal Inspection - Respiratory Exam Respiratory Exam: Clear to Ausculation Bilateral, NORMAL BREATHING PATTERN - GI/Abdominal Exam GI & Abdominal Exam: Soft, Normal Bowel Sounds - Rectal Exam Rectal Exam: Deferred - Extremities Exam Additional comments: no edema, s/p left BKA - Neurological Exam Neurological Exam: Altered, CN II-XII Intact Additional comments: arousable, following simple commands, moving all extremities, no focal deficit Assessment and Plan - Assessment and Plan (Free Text) Assessment: 73 yo AA male with pmh/o htn, dm esrd, pvd, s/p left bka, s/p pacemaker, diverticulosis, s/p diverticulitis, anemia, s/p c.diff , bph was admitted with lower abd. pain, dysuria, frequency, low garde fever 1. ESRD 2. HTN 3. DM 4. UTI 5. AMS, most likely sec to metabolic encephalopathy sec to drug, Maxipime pt is reciving 1gm q 12 hrs (renal dose 500 mg q2 4 hrs), r/o seizers urine c/s is + for GNR, identified as K. pneumonia blood c/s, no growth so far d/c Maxipine c/w current anti HTN meds low na, low K+diet c/w po4 binders for HD in AM neurology evaluation
[2018-09-24 13:35] LABS: ABG ALLEN TEST POS; ARTERIAL BLOOD GAS HCO3 24.8 mmol/L (21-28); ARTERIAL BLOOD GAS O2 SAT 93.2 % (95-98); ARTERIAL BLOOD GAS PCO2 43 mm/Hg (35-45); ARTERIAL BLOOD GAS PH 7.38 (7.35-7.45); ARTERIAL BLOOD GAS PO2 71 mm/Hg (80-100); ARTERIAL BLOOD GAS TCO2 26.7 mmol/L (22-28)
[2018-09-24 13:50] LABS: BASO % 0.6 % (0.0-2.0); EOS # 0.2 K/uL (0.0-0.7); EOS % 2.1 % (0.0-4.0); HEMOGLOBIN 10.6 g/dL (12.0-18.0); LYMPH # 1.1 K/uL (1.0-4.3); LYMPH % 15.4 % (20.0-40.0); MEAN CELL VOLUME 95.6 fL (80.0-94.0); MEAN CORPUSCULAR HEMOGLOBIN 31.4 pg (27.0-31.0); MEAN CORPUSCULAR HGB CONC 32.8 g/dL (33.0-37.0); MEAN PLATELET VOLUME 8.9 fL (7.2-11.7); MONO # 0.8 K/uL (0.0-0.8); MONO % 11.1 % (0.0-10.0); NEUT # 5.1 K/uL (1.8-7.0); NEUT % 70.8 % (50.0-75.0); NRBC % 0.1 % (0.0-2.0); RBC 3.38 Mil/uL (4.40-5.90); WHITE BLOOD COUNT 7.2 K/uL (4.8-10.8)
[2018-09-24 13:51] LABS: TROPONIN I 0.047 ng/mL (0.00-0.120)
[2018-09-24 13:59] LABS: INR 1.2; PROTHROMBIN TIME 12.6 SECONDS (9.7-12.2)
[2018-09-24 14:00] LABS: ALBUMIN 4.1 g/dL (3.5-5.0); CALCIUM 8.8 mg/dl (8.6-10.4)
[2018-09-24] MEDS ORDERED: Dextrose 5%/0.45% NS 1,000 ML IV SCH (14:00)
--- NOTE | 2018-09-24 14:07 | PCM.RRT ---
<Yamil Gurrolay - Last Filed: 09/24/18 14:59> SKEIN INSPECTOR Nurses Assessment - Situation Date: 09/24/18 SKEIN INSPECTOR Location:: Med/Oncology Room Number: 357-A SKEIN INSPECTOR Reason for Call: Change in Mental Status (Pt had a bowel movement but was then unable to answer questions appropriately. "mumbling" as per nurse. When we evaluated the pt our examination reveleaed AMS decribed as inability to answer questions other than, "yes" to "are you okay." ) SKEIN INSPECTOR Called By: RN - IV IV Inserted during SKEIN INSPECTOR?: No - Diagnostic Test Ordered EKG: Yes Chest X-Ray: Yes CT Scan: Yes (no acute pathology) - Stat Labs Ordered SKEIN INSPECTOR Stat Labs Ordered: CBC, BMP, TROPONIN, LACTIC ACID, BLOOD C&S X2, ABG - Vital Signs Vital Signs: 197/79, 96% on RA, HR is 79, RR is 18. Repeat BP after initial BP is 201/93. - Buchanan Coma Scale Coma Scale Eye Opening: Spontaneous Coma Scale Motor: Movement to pain stimulus Coma Scale Verbal: Inappropriate words Coma Scale Total: 12 - Recommendations 5) SKEIN INSPECTOR Level of Care Recommendations: Transfer to Telemetry Notifications: Consultations (Dr. Conrad, neurology, requests EEG. Dr. Thakkar, believes that this AMS is likely seconadry to metabolic encephalopathy secondary to Maxipeme. Dr. Nancy Melendez reports that pt is unlikely to be septic and to discontinue all antibiotics at this time.) <Loren Helms V - Last Filed: 09/24/18 21:22> Attending/Attestation - Attestation I have personally seen and examined this patient.: Yes I have fully participated in the care of the patient.: Yes I have reviewed all pertinent clinical information, including history, physical exam and plan: Yes Notes (Text): Brief Hospitalist note SKEIN INSPECTOR: change in mental status 73 year old Male pmhx esrd, htn, left knee amputation, prior tia in 02/2018, smoker, being treated for klebsiella uti on cefepime called for SKEIN INSPECTOR for changed in mental status. Per nursing, he normally is very talkative and this is a sudden change. per clinical partner last normal about 1230. patient is not hypoglycemic. blood work ordered at rapid. Patient noted facial grimancing over the mouth, and right upper extremity hand twitching. Patient is arousable will say yes or no to questions but then fall back to sleep. Discussed with Dr. Mayer, covering for Dr. mathew, noted he saw patient earlier was sleepy but arousable and answering questions. Patient had blood work collected, chest xray completed appears similar to prior. Patient had ct head completed no acute findings. Patient had prior TIA in February 2015, with mild dysarthria, and right upper extremity weakness, which he had recovered Patient did not receive any narcotic, no prior hx of seizure, has pacemaker (cannot MRI) and noted rectal bleeding in hospitlization. Discussed with nephrology at bedside s/p ct head, noted patient is baseline oriented, speaks in southern accent, and that this is an acute change, related t o Cefepime since its at higher dose for typical ESRD. Discussed with ID, recommended to hold, and may consider cipro but will re-evaluate; less likely sepsis. Consult neurology given prior hx of stroke, change in status, and risk factors possible toxic metabolic encephalopathy, recommend for eeg. Updated by neurology upon evaluation for focal seizure, given ativan, accepted to icu for closer monitoring, and continuous eeg. suspected to maximpime. Updated dr. reeves regarding events noted above. Time: >30 min
[2018-09-24 14:12] LABS: CK-MB 1.92 ng/mL (0.0-3.38)
--- NOTE | 2018-09-24 14:13 | PN ---
DATE: 09/24/2018 SUBJECTIVE: The patient denies chest pain or shortness of breath. His dysuria has improved. PHYSICAL EXAMINATION: VITAL SIGNS: Blood pressure 158/70, heart rate 71, temperature 98.5, and respirations 20. HEENT: Pale conjunctivae. CHEST: Clear. HEART: S1 and S2 regular. EXTREMITIES: Left below-knee amputation. ASSESSMENT: 1. End-stage renal disease, on hemodialysis. 2. Urinary tract infection with Klebsiella pneumonia. 3. Peripheral vascular disease, status post left below-knee amputation. 4. Known coronary artery disease with known total occlusion of the right coronary artery. 5. Hypertension and hyperlipidemia. PLAN: Continue current hydrazine 50 mg every 8 hours, aspirin 325 mg once a day, Crestor 5 mg once a day, Feosol one tablet daily, Enulose 20 mg p.o. once a day, IV cefepime at 1 g every 12 hours, PhosLo one tablet t.i.d., Proscar 5 mg once a day, Toprol XL at 50 mg once a day, and Rocaltrol 0.25 daily. Roberto Mayer MD
--- NOTE | 2018-09-24 14:28 | CT ---
Date of service: 09/24/2018 PROCEDURE: CT HEAD WITHOUT CONTRAST. HISTORY: ams COMPARISON: 03/14/2018 TECHNIQUE: Axial computed tomography images were obtained through the head/brain without intravenous contrast. Radiation dose: Total exam DLP = 2058.14 mGy-cm. This CT exam was performed using one or more of the following dose reduction techniques: Automated exposure control, adjustment of the mA and/or kV according to patient size, and/or use of iterative reconstruction technique. FINDINGS: HEMORRHAGE: No intracranial hemorrhage. BRAIN: No mass effect or edema. Minimal atrophy. Minimal chronic periventricular white matter ischemic change. No evidence of acute infarct. VENTRICLES: Unremarkable. No hydrocephalus. CALVARIUM: Unremarkable. PARANASAL SINUSES: Unremarkable as visualized. No significant inflammatory changes. MASTOID AIR CELLS: Unremarkable as visualized. No inflammatory changes. OTHER FINDINGS: None. IMPRESSION: No intracranial mass, hemorrhage or evidence of acute infarct.
--- NOTE | 2018-09-24 15:12 | RAD ---
Date of service: 09/24/2018 HISTORY: abd distention COMPARISON: None available. FINDINGS: BOWEL: Normal. No obstruction. No free air. BONES: Normal. OTHER FINDINGS: None. IMPRESSION: No active disease.
--- NOTE | 2018-09-24 15:52 | RAD ---
Date of service: 09/24/2018 HISTORY: r/o pna COMPARISON: 09/18/2018 FINDINGS: LUNGS: No active pulmonary disease. PLEURA: No significant pleural effusion identified, no pneumothorax apparent. CARDIOVASCULAR: No aortic atherosclerotic calcification present. Normal cardiac size. No congestive change. Permanent pacemaker. Left subclavian/axillary/brachial vascular stent. OSSEOUS STRUCTURES: No significant abnormalities. VISUALIZED UPPER ABDOMEN: Normal. OTHER FINDINGS: None. IMPRESSION: No active disease.
[2018-09-24] MEDS: Hydrocortisone 2.5% Rectal Cream(30 gm) PR SCH (18:24)
--- NOTE | 2018-09-24 19:21 | CP.PCM.CON ---
History of Present Illness - History of Present Illness History of Present Illness: Neurology Consultation Note: Mr. Richards is a 73-year-old man, referred to me by Dr. Helms, with a past medical history of standing HTN, DM, ESRD on HD, s/p pacemaker, s/p left BKA, and multiple other medical co-morbidities, who was admitted for abdominal pain, dysuria and fever. He was started on maxipime for suspected infection and has been receiving dialysis as usual. Today, he was having a bowel movement, and was noted to become acutely encephalopathic. He did not have any focal weakness. A non-contrast CT scan of the head was done and did not show any acute findings. When I saw the patient, he was having right face and arm continuous twitching, consistent with a focal seizure. He was not able to answer any questions, or follow any commands. Review of Systems - Review of Systems Systems not reviewed;Unavailable: Altered Mental Status Past Patient History - Infectious Disease Hx of Infectious Diseases: None - Past Medical History & Family History Past Medical History?: Yes - Past Social History Smoking Status: Former Smoker - CARDIAC Hx Cardiac Disorders: Yes Hx Hypercholesterolemia: Yes Hx Hypertension: Yes Hx Pacemaker: Yes (12/17) Hx Peripheral Edema: No - PULMONARY Hx Respiratory Disorders: No Other/Comment: light smoker - NEUROLOGICAL Hx Neurological Disorder: No Hx Alzheimer's Disease: No - HEENT Hx HEENT Problems: Yes Other/Comment: left eye vision problems - RENAL Hx Chronic Kidney Disease: Yes - ENDOCRINE/METABOLIC Hx Endocrine Disorders: Yes Hx Diabetes Mellitus Type 2: Yes - HEMATOLOGICAL/ONCOLOGICAL Hx Blood Transfusions: Yes (UNKNOWN) - INTEGUMENTARY Hx Dermatological Problems: No - MUSCULOSKELETAL/RHEUMATOLOGICAL Hx Falls: No Other/Comment: LBKA - GASTROINTESTINAL Hx Gastrointestinal Disorders: Yes Hx Diverticulitis: Yes - GENITOURINARY/GYNECOLOGICAL Hx Genitourinary Disorders: No Hx Urinary Tract Infection: Yes Other/Comment: ADMITTING DX PYELONEPHRITIS - PSYCHIATRIC Hx Substance Use: No - SURGICAL HISTORY Hx Surgeries: Yes Hx Amputation: Yes Hx Vascular Surgery: Yes Hx Vascular Access Device: Yes - ANESTHESIA Hx Anesthesia: Yes Hx Anesthesia Reactions: No Hx Malignant Hyperthermia: No Has any member of the family had a problem w/ anesthesia?: No Meds Allergies/Adverse Reactions: Allergies Allergy/AdvReac Type Severity Reaction Status Date / Time No Known Allergies Allergy Verified 09/18/18 13:46 - Medications Medications: Current Medications Acetaminophen (Tylenol 325mg Tab) 2 mg PO Q6 PRN PRN Reason: Pain, moderate (4-7) Acetaminophen (Tylenol 325mg Tab) 650 mg PO Q6 PRN PRN Reason: Fever >100.4 F Last Admin: 09/23/18 11:39 Dose: 650 mg Aspirin (Aspirin) 325 mg PO DAILY [facility] Last Admin: 09/24/18 09:33 Dose: 325 mg Calcitriol (Rocaltrol) 0.25 mcg PO DAILY [facility] Last Admin: 09/24/18 09:34 Dose: 0.25 mcg Calcium Acetate (Phoslo) 667 mg PO TID [facility] Last Admin: 09/24/18 18:24 Dose: Not Given Epoetin Omi (Procrit) 10,000 unit IV MWF [facility] Last Admin: 09/22/18 12:12 Dose: 10,000 unit Famotidine (Pepcid) 20 mg PO DAILY [facility] Last Admin: 09/24/18 09:33 Dose: 20 mg Ferrous Sulfate (Feosol) 325 mg PO DAILY [facility] Last Admin: 09/24/18 09:33 Dose: 325 mg Finasteride (Proscar) 5 mg PO DAILY [facility] Last Admin: 09/24/18 09:33 Dose: 5 mg Guaifenesin (Robitussin) 200 mg PO Q4H PRN PRN Reason: Cough and congestion Last Admin: 09/22/18 04:40 Dose: 200 mg Hydralazine HCl (Apresoline) 50 mg PO Q8 [facility] Last Admin: 09/24/18 14:50 Dose: Not Given Hydrocortisone (Anusol-Hc) 0 gm OK BID [facility] Last Admin: 09/24/18 18:24 Dose: Not Given Dextrose/Sodium Chloride (Dextrose 5%/0.45% Ns 1000 Ml) 1,000 mls @ 50 mls/hr IV .Q20H [facility] Stop: 09/25/18 09:59 Last Admin: 09/24/18 14:00 Dose: 50 mls/hr Lactic Acid (Lac-Hydrin 12% Lotion (225 G)) 0 gm EXT DAILY [facility] Last Admin: 09/24/18 09:34 Dose: 1 applic Lactulose (Enulose) 20 gm PO DAILY [facility] Last Admin: 09/24/18 09:32 Dose: 20 gm Metoprolol Succinate (Toprol Xl) 50 mg PO BID [facility] Last Admin: 09/24/18 18:24 Dose: Not Given Phenazopyridine HCl (Pyridium) 200 mg PO TIDPC [facility] Last Admin: 09/24/18 18:24 Dose: Not Given Rosuvastatin Calcium (Crestor) 5 mg PO HS [facility] Last Admin: 09/23/18 22:03 Dose: 5 mg Physical Exam - Constitutional Appears: Chronically Ill - Head Exam Head Exam: ATRAUMATIC, NORMAL INSPECTION, NORMOCEPHALIC - Eye Exam Eye Exam: EOMI, Normal appearance, PERRL - ENT Exam ENT Exam: Mucous Membranes Moist, Normal Exam - Neck Exam Neck exam: Positive for: Normal Inspection - Respiratory Exam Respiratory Exam: Clear to Auscultation Bilateral, NORMAL BREATHING PATTERN - Cardiovascular Exam Cardiovascular Exam: REGULAR RHYTHM, +S1, +S2 - GI/Abdominal Exam GI & Abdominal Exam: Normal Bowel Sounds, Soft. absent: Tenderness - Rectal Exam Rectal Exam: Deferred - Neurological Exam Neurological exam: Altered, CN II-XII Intact Additional comments: Focal seizure involving right face and arm with rhythmic twitching. - Psychiatric Exam Psychiatric exam: Normal Affect, Normal Mood - Skin Skin Exam: Dry, Intact, Normal Color, Warm Results - Vital Signs Recent Vital Signs: Last Vital Signs Temp 97.2 F L 09/24/18 16:50 Pulse 72 09/24/18 16:50 Resp 20 09/24/18 16:50 BP 152/69 H 09/24/18 16:50 Pulse Ox 97 09/24/18 16:50 - Labs Result Diagrams: 09/24/18 13:16 09/24/18 13:16 Labs: Laboratory Results - last 24 hr 09/23/18 09/24/18 09/24/18 21:23 13:16 13:16 WBC 7.2 D RBC 3.38 L Hgb 10.6 L Hct 32.3 L MCV 95.6 H MCH 31.4 H MCHC 32.8 L RDW 15.0 H Plt Count 156 MPV 8.9 Neut % (Auto) 70.8 Lymph % (Auto) 15.4 L Phillips % (Auto) 11.1 H Eos % (Auto) 2.1 Baso % (Auto) 0.6 Neut # (Auto) 5.1 Lymph # (Auto) 1.1 Phillips # (Auto) 0.8 Eos # (Auto) 0.2 Baso # (Auto) 0.0 PT INR APTT Puncture Site pCO2 pO2 HCO3 ABG pH ABG Total CO2 ABG O2 Saturation ABG Base Excess Josiah Test ABG Potassium A-a O2 Difference Respiratory Index Glucose Lactate FiO2 Sodium 137 Potassium 4.5 Chloride 96 L Carbon Dioxide 23 Anion Gap 22 H BUN 50 H Creatinine 9.8 H* D Est GFR ( Amer) 6 Est GFR (Non-Af Amer) 5 POC Glucose (mg/dL) 285 H Random Glucose 164 H Calcium 8.8 Phosphorus 4.5 Magnesium 2.3 Total Bilirubin 1.4 H AST 98 H D ALT 95 H D Alkaline Phosphatase 101 Ammonia Total Creatine Kinase 41 L CK-MB (Mass) 1.92 Troponin I 0.0470 Total Protein 8.1 Albumin 4.1 Globulin 4.0 H Albumin/Globulin Ratio 1.0 Arterial Blood Potassium 09/24/18 09/24/18 09/24/18 13:16 13:32 13:35 WBC RBC Hgb Hct MCV MCH MCHC RDW Plt Count MPV Neut % (Auto) Lymph % (Auto) Phillips % (Auto) Eos % (Auto) Baso % (Auto) Neut # (Auto) Lymph # (Auto) Phillips # (Auto) Eos # (Auto) Baso # (Auto) PT 12.6 H INR 1.2 APTT 30 Puncture Site Right radial pCO2 43 pO2 71 L HCO3 24.8 ABG pH 7.38 ABG Total CO2 26.7 ABG O2 Saturation 93.2 L ABG Base Excess 0 Josiah Test Pos ABG Potassium 4.2 A-a O2 Difference 25.0 Respiratory Index 0.4 Glucose 171 H Lactate 0.8 FiO2 21.0 Sodium 136.0 Potassium Chloride 101.0 Carbon Dioxide Anion Gap BUN Creatinine Est GFR ( Amer) Est GFR (Non-Af Amer) POC Glucose (mg/dL) Random Glucose Calcium Phosphorus Magnesium Total Bilirubin AST ALT Alkaline Phosphatase Ammonia 24 Total Creatine Kinase CK-MB (Mass) Troponin I Total Protein Albumin Globulin Albumin/Globulin Ratio Arterial Blood Potassium 4.2 Assessment & Plan (1) Focal motor seizure Assessment and Plan: Associated with toxic-metabolic encephalopathy and could be induced by maxipime. Will give Ativan 2 mg IV STAT and start continuous EEG. Maxipime was stopped. I recommend dialysis as soon as possible. If the seizure does not stop, we will give another 2 mg of Ativan. Will consider starting Keppra if the patient is continuing to have seizures. Thank you for this consultation. Status: Acute
--- NOTE | 2018-09-24 21:19 | CP.PCM.CON ---
History of Present Illness - History of Present Illness History of Present Illness: 73-year-old male with past medical history of HTN, hypercholesterolemia, ESRD on hemodialysis TTS was admitted on 09/18/18 for evaluation of lower abdominal pain and UTI, and was started on amikacin and cefipime, patient had episode of confusion this am when CHICKEN CLEANER was called, with no acute changes in the CT head. He was seen by neurology and felt he had twitches in face and right arm and not responding appropriately mentally and suspected focal seizure. At time of my eval patient was post ativan and was confused. Patient was brought down to ICU for EEG monitoring, urgent HD, and close monitoring. PMHx: HTN, Hypercholesterolemia, ESRD ON HEMODIALYSIS TTS, DIVERTICULITIS, HISTORY OF PSEUDOMEMBRANOUS COLITIS. PSHx: Pacemaker IN 2017, bypass L popliteal artery, LT BKA FHX: Unknown Social: Former heavy smoker, current light tobacco use ALL: NKDA Review of Systems - Review of Systems All systems: reviewed and no additional remarkable complaints except (HPI) Past Patient History - Infectious Disease Hx of Infectious Diseases: None - Past Medical History & Family History Past Medical History?: Yes - Past Social History Smoking Status: Former Smoker - CARDIAC Hx Cardiac Disorders: Yes Hx Hypercholesterolemia: Yes Hx Hypertension: Yes Hx Pacemaker: Yes (12/17) Hx Peripheral Edema: No - PULMONARY Hx Respiratory Disorders: No Other/Comment: light smoker - NEUROLOGICAL Hx Neurological Disorder: No Hx Alzheimer's Disease: No - HEENT Hx HEENT Problems: Yes Other/Comment: left eye vision problems - RENAL Hx Chronic Kidney Disease: Yes - ENDOCRINE/METABOLIC Hx Endocrine Disorders: Yes Hx Diabetes Mellitus Type 2: Yes - HEMATOLOGICAL/ONCOLOGICAL Hx Blood Transfusions: Yes (UNKNOWN) - INTEGUMENTARY Hx Dermatological Problems: No - MUSCULOSKELETAL/RHEUMATOLOGICAL Hx Falls: No Other/Comment: LBKA - GASTROINTESTINAL Hx Gastrointestinal Disorders: Yes Hx Diverticulitis: Yes - GENITOURINARY/GYNECOLOGICAL Hx Genitourinary Disorders: No Hx Urinary Tract Infection: Yes Other/Comment: ADMITTING DX PYELONEPHRITIS - PSYCHIATRIC Hx Substance Use: No - SURGICAL HISTORY Hx Surgeries: Yes Hx Amputation: Yes Hx Vascular Surgery: Yes Hx Vascular Access Device: Yes - ANESTHESIA Hx Anesthesia: Yes Hx Anesthesia Reactions: No Hx Malignant Hyperthermia: No Has any member of the family had a problem w/ anesthesia?: No Meds Allergies/Adverse Reactions: Allergies Allergy/AdvReac Type Severity Reaction Status Date / Time No Known Allergies Allergy Verified 09/18/18 13:46 - Medications Medications: Current Medications Acetaminophen (Tylenol 325mg Tab) 2 mg PO Q6 PRN PRN Reason: Pain, moderate (4-7) Acetaminophen (Tylenol 325mg Tab) 650 mg PO Q6 PRN PRN Reason: Fever >100.4 F Last Admin: 09/23/18 11:39 Dose: 650 mg Aspirin (Aspirin) 325 mg PO DAILY [facility] Last Admin: 09/24/18 09:33 Dose: 325 mg Calcitriol (Rocaltrol) 0.25 mcg PO DAILY [facility] Last Admin: 09/24/18 09:34 Dose: 0.25 mcg Calcium Acetate (Phoslo) 667 mg PO TID [facility] Last Admin: 09/24/18 18:24 Dose: Not Given Epoetin Omi (Procrit) 10,000 unit IV MWF [facility] Last Admin: 09/22/18 12:12 Dose: 10,000 unit Famotidine (Pepcid) 20 mg PO DAILY [facility] Last Admin: 09/24/18 09:33 Dose: 20 mg Ferrous Sulfate (Feosol) 325 mg PO DAILY [facility] Last Admin: 09/24/18 09:33 Dose: 325 mg Finasteride (Proscar) 5 mg PO DAILY [facility] Last Admin: 09/24/18 09:33 Dose: 5 mg Guaifenesin (Robitussin) 200 mg PO Q4H PRN PRN Reason: Cough and congestion Last Admin: 09/22/18 04:40 Dose: 200 mg Hydralazine HCl (Apresoline) 50 mg PO Q8 [facility] Last Admin: 09/24/18 14:50 Dose: Not Given Hydrocortisone (Anusol-Hc) 0 gm RI BID [facility] Last Admin: 09/24/18 18:24 Dose: Not Given Dextrose/Sodium Chloride (Dextrose 5%/0.45% Ns 1000 Ml) 1,000 mls @ 50 mls/hr IV .Q20H [facility] Stop: 09/25/18 09:59 Last Admin: 09/24/18 14:00 Dose: 50 mls/hr Lactic Acid (Lac-Hydrin 12% Lotion (225 G)) 0 gm EXT DAILY [facility] Last Admin: 09/24/18 09:34 Dose: 1 applic Lactulose (Enulose) 20 gm PO DAILY [facility] Last Admin: 09/24/18 09:32 Dose: 20 gm Metoprolol Succinate (Toprol Xl) 50 mg PO BID [facility] Last Admin: 09/24/18 18:24 Dose: Not Given Phenazopyridine HCl (Pyridium) 200 mg PO TIDPC [facility] Last Admin: 09/24/18 18:24 Dose: Not Given Rosuvastatin Calcium (Crestor) 5 mg PO HS [facility] Last Admin: 09/23/18 22:03 Dose: 5 mg Physical Exam - Additional Findings Additional findings: * HEENT KEY * Neck supple * chest Clear * CVS regular, pacemaker on the right side * PA soft, nt bs present * Ext left arm av fistula, RBKA * SOLUTIONS CONSULTANT awake, responding, but not communicating appropriately, agitated and disoriented, was able to sons's voice on phone. * Skin Euvolemic. Results - Vital Signs Recent Vital Signs: Last Vital Signs Temp 97.2 F L 09/24/18 16:50 Pulse 72 09/24/18 16:50 Resp 20 09/24/18 16:50 BP 152/69 H 09/24/18 16:50 Pulse Ox 97 09/24/18 16:50 - Labs Result Diagrams: 09/24/18 13:16 09/24/18 13:16 Labs: Laboratory Results - last 24 hr 09/23/18 09/24/18 09/24/18 21:23 13:16 13:16 WBC 7.2 D RBC 3.38 L Hgb 10.6 L Hct 32.3 L MCV 95.6 H MCH 31.4 H MCHC 32.8 L RDW 15.0 H Plt Count 156 MPV 8.9 Neut % (Auto) 70.8 Lymph % (Auto) 15.4 L Warrick % (Auto) 11.1 H Eos % (Auto) 2.1 Baso % (Auto) 0.6 Neut # (Auto) 5.1 Lymph # (Auto) 1.1 Warrick # (Auto) 0.8 Eos # (Auto) 0.2 Baso # (Auto) 0.0 PT INR APTT Puncture Site pCO2 pO2 HCO3 ABG pH ABG Total CO2 ABG O2 Saturation ABG Base Excess Josiah Test ABG Potassium A-a O2 Difference Respiratory Index Glucose Lactate FiO2 Sodium 137 Potassium 4.5 Chloride 96 L Carbon Dioxide 23 Anion Gap 22 H BUN 50 H Creatinine 9.8 H* D Est GFR ( Amer) 6 Est GFR (Non-Af Amer) 5 POC Glucose (mg/dL) 285 H Random Glucose 164 H Calcium 8.8 Phosphorus 4.5 Magnesium 2.3 Total Bilirubin 1.4 H AST 98 H D ALT 95 H D Alkaline Phosphatase 101 Ammonia Total Creatine Kinase 41 L CK-MB (Mass) 1.92 Troponin I 0.0470 Total Protein 8.1 Albumin 4.1 Globulin 4.0 H Albumin/Globulin Ratio 1.0 Arterial Blood Potassium 09/24/18 09/24/18 09/24/18 13:16 13:32 13:35 WBC RBC Hgb Hct MCV MCH MCHC RDW Plt Count MPV Neut % (Auto) Lymph % (Auto) Warrick % (Auto) Eos % (Auto) Baso % (Auto) Neut # (Auto) Lymph # (Auto) Warrick # (Auto) Eos # (Auto) Baso # (Auto) PT 12.6 H INR 1.2 APTT 30 Puncture Site Right radial pCO2 43 pO2 71 L HCO3 24.8 ABG pH 7.38 ABG Total CO2 26.7 ABG O2 Saturation 93.2 L ABG Base Excess 0 Josiah Test Pos ABG Potassium 4.2 A-a O2 Difference 25.0 Respiratory Index 0.4 Glucose 171 H Lactate 0.8 FiO2 21.0 Sodium 136.0 Potassium Chloride 101.0 Carbon Dioxide Anion Gap BUN Creatinine Est GFR ( Amer) Est GFR (Non-Af Amer) POC Glucose (mg/dL) Random Glucose Calcium Phosphorus Magnesium Total Bilirubin AST ALT Alkaline Phosphatase Ammonia 24 Total Creatine Kinase CK-MB (Mass) Troponin I Total Protein Albumin Globulin Albumin/Globulin Ratio Arterial Blood Potassium 4.2 Assessment & Plan - Assessment and Plan (Free Text) Assessment: * Focal seizures suspected from medication s/e, or metabolic encephalopathy * UTI * ESRD on hd * s/p pacemaker * R BKA * PVD Plan: * EEG Monitoring * HD * PRN ativan if signs of continuous seizure my temporary start keppra * Seizure, aspiration precaution * See orders for detail.
[2018-09-25 05:45] LABS: BASO # 0.1 K/uL (0.0-0.2); BASO % 0.8 % (0.0-2.0); EOS # 0.2 K/uL (0.0-0.7); EOS % 2.2 % (0.0-4.0); HEMOGLOBIN 10.8 g/dL (12.0-18.0); LYMPH # 1.5 K/uL (1.0-4.3); LYMPH % 19.6 % (20.0-40.0); MEAN CELL VOLUME 95.3 fL (80.0-94.0); MEAN CORPUSCULAR HEMOGLOBIN 30.5 pg (27.0-31.0); MEAN PLATELET VOLUME 8.8 fL (7.2-11.7); MONO # 0.9 K/uL (0.0-0.8); MONO % 11.6 % (0.0-10.0); NEUT # 5.1 K/uL (1.8-7.0); NEUT % 65.8 % (50.0-75.0); RBC 3.55 Mil/uL (4.40-5.90); RED CELL DISTRIBUTION WIDTH 15.2 % (11.5-14.5); WHITE BLOOD COUNT 7.8 K/uL (4.8-10.8)
[2018-09-25 06:10] LABS: ALBUMIN 4.1 g/dL (3.5-5.0); CALCIUM 7.7 mg/dl (8.6-10.4)
--- NOTE | 2018-09-25 07:57 | CP.CCUPN ---
CCU Subjective - Physician Review Subjective (Free Text): 09/25/18 11:30 PGY-1 Critical Care Progress Note for Dr. Whitehead Patient seen and examined at bedside this AM. Was brought down from 5S last night due to altered mental status, in ICU for 24 hr EEG monitoring. Patient is mildly sluggish but alert and oriented, responds appropriately to questions. No seizure activity noted. 12 pt ROS reviewed and otherwise negative at this time. Critical Care Time Spent (in minutes): 35 CCU Objective - Vital Signs / Intake & Output Vital Signs (Last 4 hours): Vital Signs Pulse Resp BP Pulse Ox 09/25/18 06:00 76 17 93 L 09/25/18 05:50 74 15 177/73 H 96 09/25/18 05:01 76 15 167/73 H 84 L 09/25/18 05:00 75 15 09/25/18 04:00 72 15 Intake and Output (Last 8hrs): Intake & Output 09/24/18 09/25/18 09/25/18 22:59 06:59 14:59 Intake Total 220 100 Balance 220 100 Intake: Intake, IV Amount 0 Right Antecubital 0 Oral 220 100 Other: # Voids Urine, Voided 0 0 # Bowel Movements 0 0 - Physical Exam Head: Positive for: Atraumatic, Normocephalic Pupils: Positive for: PERRL Conjunctiva: Positive for: Normal Mouth: Positive for: Dry Neck: Positive for: Normal Range of Motion Respiratory/Chest: Positive for: Clear to Auscultation, Good Air Exchange. Negative for: Respiratory Distress, Accessory Muscle Use, Wheezes, Rales, Rhonchi Cardiovascular: Positive for: Regular Rate and Rhythm, Normal S1, S2. Negative for: Murmurs Abdomen: Positive for: Normal Bowel Sounds. Negative for: Tenderness, Distention, Peritoneal Signs, Rebound, Guarding Upper Extremity: Positive for: Normal Inspection, NORMAL PULSES, Neurovascularly Intact, Capillary Refill < 2s. Negative for: Cyanosis, Edema, Tenderness, Swelling Lower Extremity: Positive for: Normal Inspection, NORMAL PULSES, Neurovascularly Intact, Capillary Refill < 2 s. Negative for: Edema, CALF TENDERNESS, Swelling Neurological: Positive for: Speech Normal Skin: Positive for: Warm, Dry, Normal Color Psychiatric: Positive for: Alert, Oriented x 3 - Medications Active Medications: Active Medications Generic Name Dose Route Start Last Admin Trade Name Freq PRN Reason Stop Dose Admin Acetaminophen 2 mg 09/18/18 19:08 Tylenol 325mg Tab PO Q6 PRN Pain, moderate (4-7) Acetaminophen 650 mg 09/18/18 19:11 09/23/18 11:39 Tylenol 325mg Tab PO 650 mg Q6 PRN Administration Fever >100.4 F Aspirin 325 mg 09/19/18 10:00 09/24/18 09:33 Aspirin PO 325 mg DAILY MATTHEW Administration Calcitriol 0.25 mcg 09/19/18 10:00 09/24/18 09:34 Rocaltrol PO 0.25 mcg DAILY MATTHEW Administration Calcium Acetate 667 mg 09/19/18 10:00 09/24/18 18:24 Phoslo PO Not Given TID MATTHEW Epoetin Omi 10,000 unit 09/20/18 09:00 09/22/18 12:12 Procrit IV 10,000 unit MWF MATTHEW Administration Famotidine 20 mg 09/19/18 10:00 09/24/18 09:33 Pepcid PO 20 mg DAILY MATTHEW Administration Ferrous Sulfate 325 mg 09/19/18 10:00 09/24/18 09:33 Feosol PO 325 mg DAILY MATTHEW Administration Finasteride 5 mg 09/19/18 10:00 09/24/18 09:33 Proscar PO 5 mg DAILY MATTHEW Administration Guaifenesin 200 mg 09/19/18 12:27 09/22/18 04:40 Robitussin PO 200 mg Q4H PRN Administration Cough and congestion Hydralazine HCl 50 mg 09/19/18 12:20 09/25/18 06:00 Apresoline PO Not Given Q8 MATTHEW Hydrocortisone 0 gm 09/19/18 10:00 09/24/18 18:24 Anusol-Hc DE Not Given BID MATTHEW Dextrose/Sodium Chloride 1,000 mls @ 50 mls/hr 09/24/18 14:00 09/24/18 14:00 Dextrose 5%/0.45% Ns 1000 Ml IV 09/25/18 09:59 50 mls/hr .Q20H MATTHEW Administration Lactic Acid 0 gm 09/20/18 10:00 09/24/18 09:34 Lac-Hydrin 12% Lotion (225 G) EXT 1 applic DAILY MATTHEW Administration Lactulose 20 gm 09/21/18 10:00 09/24/18 09:32 Enulose PO 20 gm DAILY MATTHEW Administration Metoprolol Succinate 50 mg 09/19/18 10:00 09/24/18 18:24 Toprol Xl PO Not Given BID MATTHEW Phenazopyridine HCl 200 mg 09/19/18 14:00 09/24/18 18:24 Pyridium PO Not Given TIDPC MATTHEW Rosuvastatin Calcium 5 mg 09/18/18 22:00 09/24/18 22:00 Crestor PO Not Given HS MATTHEW Sodium Polystyrene Sulfonate 30 gm 09/25/18 08:15 Kayexalate Susp PO 09/25/18 08:16 ONCE ONE - Patient Studies Lab Studies: Lab Studies 09/25/18 09/25/18 09/25/18 Range/Units 06:04 05:37 05:37 WBC 7.8 (4.8-10.8) K/uL RBC 3.55 L (4.40-5.90) Mil/uL Hgb 10.8 L (12.0-18.0) g/dL Hct 33.8 L (35.0-51.0) % MCV 95.3 H (80.0-94.0) fL MCH 30.5 (27.0-31.0) pg MCHC 32.0 L (33.0-37.0) g/dL RDW 15.2 H (11.5-14.5) % Plt Count 158 (130-400) K/uL MPV 8.8 (7.2-11.7) fL Neut % (Auto) 65.8 (50.0-75.0) % Lymph % (Auto) 19.6 L (20.0-40.0) % [place] % (Auto) 11.6 H (0.0-10.0) % Eos % (Auto) 2.2 (0.0-4.0) % Baso % (Auto) 0.8 (0.0-2.0) % Neut # (Auto) 5.1 (1.8-7.0) K/uL Lymph # (Auto) 1.5 (1.0-4.3) K/uL [place] # (Auto) 0.9 H (0.0-0.8) K/uL Eos # (Auto) 0.2 (0.0-0.7) K/uL Baso # (Auto) 0.1 (0.0-0.2) K/uL PT (9.7-12.2) SECONDS INR APTT (21-34) SECONDS Puncture Site pCO2 (35-45) mm/Hg pO2 (80-100) mm/Hg HCO3 (21-28) mmol/L ABG pH (7.35-7.45) ABG Total CO2 (22-28) mmol/L ABG O2 Saturation (95-98) % ABG Base Excess (-2.0-3.0) mmol/L Ojsiah Test ABG Potassium (3.6-5.2) mmol/L A-a O2 Difference mm/Hg Respiratory Index Glucose (75-110) mg/dl Lactate (0.7-2.1) mmol/L FiO2 % Sodium 137 (132-148) mmol/L Potassium 5.7 H (3.6-5.2) mmol/L Chloride 100 (98-107) mmol/L Carbon Dioxide 20 L (22-30) mmol/L Anion Gap 23 H (10-20) BUN 54 H (9-20) mg/dL Creatinine 9.8 H* (0.8-1.5) mg/dL Est GFR ( Amer) 6 Est GFR (Non-Af Amer) 5 POC Glucose (mg/dL) 112 H (65-110) mg/dL Random Glucose 103 (75-110) mg/dL Calcium 7.7 L (8.6-10.4) mg/dl Phosphorus 4.8 H (2.5-4.5) mg/dL Magnesium 2.1 (1.6-2.3) mg/dL Total Bilirubin 2.3 H (0.2-1.3) mg/dL AST 80 H (17-59) U/L ALT 61 (21-72) U/L Alkaline Phosphatase 97 (38-126) U/L Ammonia (9-33) umol/L Total Creatine Kinase (55-170) U/L CK-MB (Mass) (0.0-3.38) ng/mL Troponin I (0.00-0.120) ng/mL Total Protein 8.1 (6.3-8.3) g/dL Albumin 4.1 (3.5-5.0) g/dL Globulin 4.0 H (2.2-3.9) gm/dL Albumin/Globulin Ratio 1.0 (1.0-2.1) Arterial Blood Potassium (3.6-5.2) mmol/L 09/25/18 09/24/18 09/24/18 Range/Units 00:12 17:25 13:35 WBC (4.8-10.8) K/uL RBC (4.40-5.90) Mil/uL Hgb (12.0-18.0) g/dL Hct (35.0-51.0) % MCV (80.0-94.0) fL MCH (27.0-31.0) pg MCHC (33.0-37.0) g/dL RDW (11.5-14.5) % Plt Count (130-400) K/uL MPV (7.2-11.7) fL Neut % (Auto) (50.0-75.0) % Lymph % (Auto) (20.0-40.0) % [place] % (Auto) (0.0-10.0) % Eos % (Auto) (0.0-4.0) % Baso % (Auto) (0.0-2.0) % Neut # (Auto) (1.8-7.0) K/uL Lymph # (Auto) (1.0-4.3) K/uL [place] # (Auto) (0.0-0.8) K/uL Eos # (Auto) (0.0-0.7) K/uL Baso # (Auto) (0.0-0.2) K/uL PT 12.6 H (9.7-12.2) SECONDS INR 1.2 APTT 30 (21-34) SECONDS Puncture Site pCO2 (35-45) mm/Hg pO2 (80-100) mm/Hg HCO3 (21-28) mmol/L ABG pH (7.35-7.45) ABG Total CO2 (22-28) mmol/L ABG O2 Saturation (95-98) % ABG Base Excess (-2.0-3.0) mmol/L Josiah Test ABG Potassium (3.6-5.2) mmol/L A-a O2 Difference mm/Hg Respiratory Index Glucose (75-110) mg/dl Lactate (0.7-2.1) mmol/L FiO2 % Sodium (132-148) mmol/L Potassium (3.6-5.2) mmol/L Chloride (98-107) mmol/L Carbon Dioxide (22-30) mmol/L Anion Gap (10-20) BUN (9-20) mg/dL Creatinine (0.8-1.5) mg/dL Est GFR ( Amer) Est GFR (Non-Af Amer) POC Glucose (mg/dL) 162 H 162 H (65-110) mg/dL Random Glucose (75-110) mg/dL Calcium (8.6-10.4) mg/dl Phosphorus (2.5-4.5) mg/dL Magnesium (1.6-2.3) mg/dL Total Bilirubin (0.2-1.3) mg/dL AST (17-59) U/L ALT (21-72) U/L Alkaline Phosphatase (38-126) U/L Ammonia (9-33) umol/L Total Creatine Kinase (55-170) U/L CK-MB (Mass) (0.0-3.38) ng/mL Troponin I (0.00-0.120) ng/mL Total Protein (6.3-8.3) g/dL Albumin (3.5-5.0) g/dL Globulin (2.2-3.9) gm/dL Albumin/Globulin Ratio (1.0-2.1) Arterial Blood Potassium (3.6-5.2) mmol/L 09/24/18 09/24/18 09/24/18 Range/Units 13:32 13:16 13:16 WBC (4.8-10.8) K/uL RBC (4.40-5.90) Mil/uL Hgb (12.0-18.0) g/dL Hct (35.0-51.0) % MCV (80.0-94.0) fL MCH (27.0-31.0) pg MCHC (33.0-37.0) g/dL RDW (11.5-14.5) % Plt Count (130-400) K/uL MPV (7.2-11.7) fL Neut % (Auto) (50.0-75.0) % Lymph % (Auto) (20.0-40.0) % [place] % (Auto) (0.0-10.0) % Eos % (Auto) (0.0-4.0) % Baso % (Auto) (0.0-2.0) % Neut # (Auto) (1.8-7.0) K/uL Lymph # (Auto) (1.0-4.3) K/uL [place] # (Auto) (0.0-0.8) K/uL Eos # (Auto) (0.0-0.7) K/uL Baso # (Auto) (0.0-0.2) K/uL PT (9.7-12.2) SECONDS INR APTT (21-34) SECONDS Puncture Site Right radial pCO2 43 (35-45) mm/Hg pO2 71 L (80-100) mm/Hg HCO3 24.8 (21-28) mmol/L ABG pH 7.38 (7.35-7.45) ABG Total CO2 26.7 (22-28) mmol/L ABG O2 Saturation 93.2 L (95-98) % ABG Base Excess 0 (-2.0-3.0) mmol/L Josiah Test Pos ABG Potassium 4.2 (3.6-5.2) mmol/L A-a O2 Difference 25.0 mm/Hg Respiratory Index 0.4 Glucose 171 H (75-110) mg/dl Lactate 0.8 (0.7-2.1) mmol/L FiO2 21.0 % Sodium 136.0 137 (132-148) mmol/L Potassium 4.5 (3.6-5.2) mmol/L Chloride 101.0 96 L (98-107) mmol/L Carbon Dioxide 23 (22-30) mmol/L Anion Gap 22 H (10-20) BUN 50 H (9-20) mg/dL Creatinine 9.8 H* D (0.8-1.5) mg/dL Est GFR ( Amer) 6 Est GFR (Non-Af Amer) 5 POC Glucose (mg/dL) (65-110) mg/dL Random Glucose 164 H (75-110) mg/dL Calcium 8.8 (8.6-10.4) mg/dl Phosphorus 4.5 (2.5-4.5) mg/dL Magnesium 2.3 (1.6-2.3) mg/dL Total Bilirubin 1.4 H (0.2-1.3) mg/dL AST 98 H D (17-59) U/L ALT 95 H D (21-72) U/L Alkaline Phosphatase 101 (38-126) U/L Ammonia 24 (9-33) umol/L Total Creatine Kinase 41 L (55-170) U/L CK-MB (Mass) 1.92 (0.0-3.38) ng/mL Troponin I 0.0470 (0.00-0.120) ng/mL Total Protein 8.1 (6.3-8.3) g/dL Albumin 4.1 (3.5-5.0) g/dL Globulin 4.0 H (2.2-3.9) gm/dL Albumin/Globulin Ratio 1.0 (1.0-2.1) Arterial Blood Potassium 4.2 (3.6-5.2) mmol/L 09/24/18 09/24/18 09/24/18 Range/Units 13:16 13:06 11:35 WBC 7.2 D (4.8-10.8) K/uL RBC 3.38 L (4.40-5.90) Mil/uL Hgb 10.6 L (12.0-18.0) g/dL Hct 32.3 L (35.0-51.0) % MCV 95.6 H (80.0-94.0) fL MCH 31.4 H (27.0-31.0) pg MCHC 32.8 L (33.0-37.0) g/dL RDW 15.0 H (11.5-14.5) % Plt Count 156 (130-400) K/uL MPV 8.9 (7.2-11.7) fL Neut % (Auto) 70.8 (50.0-75.0) % Lymph % (Auto) 15.4 L (20.0-40.0) % [place] % (Auto) 11.1 H (0.0-10.0) % Eos % (Auto) 2.1 (0.0-4.0) % Baso % (Auto) 0.6 (0.0-2.0) % Neut # (Auto) 5.1 (1.8-7.0) K/uL Lymph # (Auto) 1.1 (1.0-4.3) K/uL [place] # (Auto) 0.8 (0.0-0.8) K/uL Eos # (Auto) 0.2 (0.0-0.7) K/uL Baso # (Auto) 0.0 (0.0-0.2) K/uL PT (9.7-12.2) SECONDS INR APTT (21-34) SECONDS Puncture Site pCO2 (35-45) mm/Hg pO2 (80-100) mm/Hg HCO3 (21-28) mmol/L ABG pH (7.35-7.45) ABG Total CO2 (22-28) mmol/L ABG O2 Saturation (95-98) % ABG Base Excess (-2.0-3.0) mmol/L Josiah Test ABG Potassium (3.6-5.2) mmol/L A-a O2 Difference mm/Hg Respiratory Index Glucose (75-110) mg/dl Lactate (0.7-2.1) mmol/L FiO2 % Sodium (132-148) mmol/L Potassium (3.6-5.2) mmol/L Chloride (98-107) mmol/L Carbon Dioxide (22-30) mmol/L Anion Gap (10-20) BUN (9-20) mg/dL Creatinine (0.8-1.5) mg/dL Est GFR ( Amer) Est GFR (Non-Af Amer) POC Glucose (mg/dL) 162 H 175 H (65-110) mg/dL Random Glucose (75-110) mg/dL Calcium (8.6-10.4) mg/dl Phosphorus (2.5-4.5) mg/dL Magnesium (1.6-2.3) mg/dL Total Bilirubin (0.2-1.3) mg/dL AST (17-59) U/L ALT (21-72) U/L Alkaline Phosphatase (38-126) U/L Ammonia (9-33) umol/L Total Creatine Kinase (55-170) U/L CK-MB (Mass) (0.0-3.38) ng/mL Troponin I (0.00-0.120) ng/mL Total Protein (6.3-8.3) g/dL Albumin (3.5-5.0) g/dL Globulin (2.2-3.9) gm/dL Albumin/Globulin Ratio (1.0-2.1) Arterial Blood Potassium (3.6-5.2) mmol/L 09/24/18 Range/Units 07:40 WBC (4.8-10.8) K/uL RBC (4.40-5.90) Mil/uL Hgb (12.0-18.0) g/dL Hct (35.0-51.0) % MCV (80.0-94.0) fL MCH (27.0-31.0) pg MCHC (33.0-37.0) g/dL RDW (11.5-14.5) % Plt Count (130-400) K/uL MPV (7.2-11.7) fL Neut % (Auto) (50.0-75.0) % Lymph % (Auto) (20.0-40.0) % [place] % (Auto) (0.0-10.0) % Eos % (Auto) (0.0-4.0) % Baso % (Auto) (0.0-2.0) % Neut # (Auto) (1.8-7.0) K/uL Lymph # (Auto) (1.0-4.3) K/uL [place] # (Auto) (0.0-0.8) K/uL Eos # (Auto) (0.0-0.7) K/uL Baso # (Auto) (0.0-0.2) K/uL PT (9.7-12.2) SECONDS INR APTT (21-34) SECONDS Puncture Site pCO2 (35-45) mm/Hg pO2 (80-100) mm/Hg HCO3 (21-28) mmol/L ABG pH (7.35-7.45) ABG Total CO2 (22-28) mmol/L ABG O2 Saturation (95-98) % ABG Base Excess (-2.0-3.0) mmol/L Josiah Test ABG Potassium (3.6-5.2) mmol/L A-a O2 Difference mm/Hg Respiratory Index Glucose (75-110) mg/dl Lactate (0.7-2.1) mmol/L FiO2 % Sodium (132-148) mmol/L Potassium (3.6-5.2) mmol/L Chloride (98-107) mmol/L Carbon Dioxide (22-30) mmol/L Anion Gap (10-20) BUN (9-20) mg/dL Creatinine (0.8-1.5) mg/dL Est GFR ( Amer) Est GFR (Non-Af Amer) POC Glucose (mg/dL) 145 H (65-110) mg/dL Random Glucose (75-110) mg/dL Calcium (8.6-10.4) mg/dl Phosphorus (2.5-4.5) mg/dL Magnesium (1.6-2.3) mg/dL Total Bilirubin (0.2-1.3) mg/dL AST (17-59) U/L ALT (21-72) U/L Alkaline Phosphatase (38-126) U/L Ammonia (9-33) umol/L Total Creatine Kinase (55-170) U/L CK-MB (Mass) (0.0-3.38) ng/mL Troponin I (0.00-0.120) ng/mL Total Protein (6.3-8.3) g/dL Albumin (3.5-5.0) g/dL Globulin (2.2-3.9) gm/dL Albumin/Globulin Ratio (1.0-2.1) Arterial Blood Potassium (3.6-5.2) mmol/L Laboratory Results - last 24 hr 09/24/18 09/24/18 09/24/18 07:40 11:35 13:06 WBC RBC Hgb Hct MCV MCH MCHC RDW Plt Count MPV Neut % (Auto) Lymph % (Auto) [place] % (Auto) Eos % (Auto) Baso % (Auto) Neut # (Auto) Lymph # (Auto) [place] # (Auto) Eos # (Auto) Baso # (Auto) PT INR APTT Puncture Site pCO2 pO2 HCO3 ABG pH ABG Total CO2 ABG O2 Saturation ABG Base Excess Josiah Test ABG Potassium A-a O2 Difference Respiratory Index Glucose Lactate FiO2 Sodium Potassium Chloride Carbon Dioxide Anion Gap BUN Creatinine Est GFR ( Amer) Est GFR (Non-Af Amer) POC Glucose (mg/dL) 145 H 175 H 162 H Random Glucose Calcium Phosphorus Magnesium Total Bilirubin AST ALT Alkaline Phosphatase Ammonia Total Creatine Kinase CK-MB (Mass) Troponin I Total Protein Albumin Globulin Albumin/Globulin Ratio Arterial Blood Potassium 09/24/18 09/24/18 09/24/18 13:16 13:16 13:16 WBC 7.2 D RBC 3.38 L Hgb 10.6 L Hct 32.3 L MCV 95.6 H MCH 31.4 H MCHC 32.8 L RDW 15.0 H Plt Count 156 MPV 8.9 Neut % (Auto) 70.8 Lymph % (Auto) 15.4 L [place] % (Auto) 11.1 H Eos % (Auto) 2.1 Baso % (Auto) 0.6 Neut # (Auto) 5.1 Lymph # (Auto) 1.1 [place] # (Auto) 0.8 Eos # (Auto) 0.2 Baso # (Auto) 0.0 PT INR APTT Puncture Site pCO2 pO2 HCO3 ABG pH ABG Total CO2 ABG O2 Saturation ABG Base Excess Josiah Test ABG Potassium A-a O2 Difference Respiratory Index Glucose Lactate FiO2 Sodium 137 Potassium 4.5 Chloride 96 L Carbon Dioxide 23 Anion Gap 22 H BUN 50 H Creatinine 9.8 H* D Est GFR ( Amer) 6 Est GFR (Non-Af Amer) 5 POC Glucose (mg/dL) Random Glucose 164 H Calcium 8.8 Phosphorus 4.5 Magnesium 2.3 Total Bilirubin 1.4 H AST 98 H D ALT 95 H D Alkaline Phosphatase 101 Ammonia 24 Total Creatine Kinase 41 L CK-MB (Mass) 1.92 Troponin I 0.0470 Total Protein 8.1 Albumin 4.1 Globulin 4.0 H Albumin/Globulin Ratio 1.0 Arterial Blood Potassium 09/24/18 09/24/18 09/24/18 13:32 13:35 17:25 WBC RBC Hgb Hct MCV MCH MCHC RDW Plt Count MPV Neut % (Auto) Lymph % (Auto) [place] % (Auto) Eos % (Auto) Baso % (Auto) Neut # (Auto) Lymph # (Auto) [place] # (Auto) Eos # (Auto) Baso # (Auto) PT 12.6 H INR 1.2 APTT 30 Puncture Site Right radial pCO2 43 pO2 71 L HCO3 24.8 ABG pH 7.38 ABG Total CO2 26.7 ABG O2 Saturation 93.2 L ABG Base Excess 0 Josiah Test Pos ABG Potassium 4.2 A-a O2 Difference 25.0 Respiratory Index 0.4 Glucose 171 H Lactate 0.8 FiO2 21.0 Sodium 136.0 Potassium Chloride 101.0 Carbon Dioxide Anion Gap BUN Creatinine Est GFR ( Amer) Est GFR (Non-Af Amer) POC Glucose (mg/dL) 162 H Random Glucose Calcium Phosphorus Magnesium Total Bilirubin AST ALT Alkaline Phosphatase Ammonia Total Creatine Kinase CK-MB (Mass) Troponin I Total Protein Albumin Globulin Albumin/Globulin Ratio Arterial Blood Potassium 4.2 09/25/18 09/25/18 09/25/18 00:12 05:37 05:37 WBC 7.8 RBC 3.55 L Hgb 10.8 L Hct 33.8 L MCV 95.3 H MCH 30.5 MCHC 32.0 L RDW 15.2 H Plt Count 158 MPV 8.8 Neut % (Auto) 65.8 Lymph % (Auto) 19.6 L [place] % (Auto) 11.6 H Eos % (Auto) 2.2 Baso % (Auto) 0.8 Neut # (Auto) 5.1 Lymph # (Auto) 1.5 [place] # (Auto) 0.9 H Eos # (Auto) 0.2 Baso # (Auto) 0.1 PT INR APTT Puncture Site pCO2 pO2 HCO3 ABG pH ABG Total CO2 ABG O2 Saturation ABG Base Excess Josiah Test ABG Potassium A-a O2 Difference Respiratory Index Glucose Lactate FiO2 Sodium 137 Potassium 5.7 H Chloride 100 Carbon Dioxide 20 L Anion Gap 23 H BUN 54 H Creatinine 9.8 H* Est GFR ( Amer) 6 Est GFR (Non-Af Amer) 5 POC Glucose (mg/dL) 162 H Random Glucose 103 Calcium 7.7 L Phosphorus 4.8 H Magnesium 2.1 Total Bilirubin 2.3 H AST 80 H ALT 61 Alkaline Phosphatase 97 Ammonia Total Creatine Kinase CK-MB (Mass) Troponin I Total Protein 8.1 Albumin 4.1 Globulin 4.0 H Albumin/Globulin Ratio 1.0 Arterial Blood Potassium 09/25/18 06:04 WBC RBC Hgb Hct MCV MCH MCHC RDW Plt Count MPV Neut % (Auto) Lymph % (Auto) [place] % (Auto) Eos % (Auto) Baso % (Auto) Neut # (Auto) Lymph # (Auto) [place] # (Auto) Eos # (Auto) Baso # (Auto) PT INR APTT Puncture Site pCO2 pO2 HCO3 ABG pH ABG Total CO2 ABG O2 Saturation ABG Base Excess Josiah Test ABG Potassium A-a O2 Difference Respiratory Index Glucose Lactate FiO2 Sodium Potassium Chloride Carbon Dioxide Anion Gap BUN Creatinine Est GFR ( Amer) Est GFR (Non-Af Amer) POC Glucose (mg/dL) 112 H Random Glucose Calcium Phosphorus Magnesium Total Bilirubin AST ALT Alkaline Phosphatase Ammonia Total Creatine Kinase CK-MB (Mass) Troponin I Total Protein Albumin Globulin Albumin/Globulin Ratio Arterial Blood Potassium EKG/Cardiology Studies: Cardiology / EKG Studies 09/24/18 12:50 EKG [ELECTROCARDIOGRAM] Stat Comment: Mode Of Transportation: Reason For Exam: ams Precautions: Fall Prevention Fingerstick Blood Sugar Results: 112 Review of Systems - Review of Systems All systems: reviewed and no additional remarkable complaints except Review of Systems: as per [facility] Critical Care Progress Note - Nutrition Nutrition: Nutrition Category Date Time Status NPO Diet [DIET] Diets 09/24/18 Dinner Active Assessment/Plan - Assessment and Plan (Free Text) Assessment: 73 yo M with PMHx of HTN, HLD, ESRD on HD TTS, admitted 09/18 for lower abdominal pain and UTI, started on cefepime/amikacin. [employer] [facility] called yesterday s/p new onset AMS, CT head negative. Neuro evaluated for apparent facial/RUE twitches, suspected focal seizure vs toxic metabolic encephalopathy. Currently undergoing 24 hr EEG monitoring in ICU. Receiving HD session this AM. Plan: Neuro: Focal seizure, AMS likely 2/2 toxic metabolic encephalopathy -given 5 mg ativan total -CT head: no acute findings -video EEG: findings suggestive of mild nonspecific diffuse disturbance of cortical activity, in keeping with diffuse odell matter dysfunction. Patient not in status epilepticus -Neuro recs (Dr. Conrad) appreciated: ativan prn, may temporarily start keppra if signs of continuous seizure present -seizure, aspiration precautions CV: HTN -Hydralazine 50mg PO q8 -Metoprolol 50 mg PO BID Peripheral vascular disease -ASA, statin Pulm: -not in acute distress -CXR (09/24): no acute findings Heme Chronic anemia 2/2 renal disease -procrit 10,000 units MWF -ferrous sulfate 325 mg PO daily Renal: ESRD -pt on HD TTR -Nephrology recs (Dr. Thakkar) appreciated: HD session to be done in AM -phoslo, calcitriol ID UTI -Urine cx (09/19): klebsiella -amikacin/cefepime dc'd -f/u ID recs PPx, Diet, Disposition -GI ppx: pepcid -Diet: NPO Case discussed with Dr. Charley Mills DO, PGY-1
[2018-09-25] MEDS ORDERED: Sod Polystyrene Sulf 15 gm/60 ml Susp PO ONE (08:15)
--- NOTE | 2018-09-25 08:57 | PCM.VEEG ---
Video EEG - Procedure Start Date: 09/24/18 Start Time: 22:50 End Date: 09/25/18 End Time: 07:55 Technical Summary: DATA ACQUISITION: This was a multichannel inpatient video-EEG, a minimum of 22 channels were uti lized, performed in accordance with recommendations specified by the [place] [employer] (Tyra Sanabria et al. ACNS Guideline 1: Minimum Technical Requirements for Performing Clinical Electroencephalography. Journal of Clinical Neurophysiology 2016;33:303-7). The 10-20 electrode placement system was utilized in accordance with guidelines detailed by the International Federation of Clinical Neurophysiology (Kate Santamaria et al. The Ten-Twenty Electrode System of the International Federation. Recommendations for the Practice of Clinical Neurophysiology: Guidelines of the International Federation of Clinical Physiology 1999; EEG Suppl. 52.). DATA REVIEW / SPIKE DETECTION / DIGITAL ANALYSIS: The entire EEG was scanned and reviewed. Synchronized audio and video recording were reviewed at the time of each alarm and whenever an abnormality or suspicious activity was noted. The entire recording was analyzed utilizing an automated digital spike and seizure analysis program and all automatic spike and seizure detections were manually reviewed. A compressed spectral array was displayed and reviewed alongside the raw EEG tracings. In addition, further analysis of the EEG was performed when abnormalities were identified, including montage changes, dipole source localization, and frequency band identification. This study was attended 24 hours per day. - Interpretation Description of the study: Indication; 73 y/o mom with facial and arm twitching, working diagnosis NCSE EEG Finding during wakefulness: During active states, the EEG was characterized by 10-15 Hz, 15-30 uV activity bilaterally in fronto-central regions, with slightly slower frequencies and variable amplitudes, intermittently seen in each frontal area. Resting wakefulness was characterized by an attenuated and asymmetric posterior dominant rhythm of 6.5 to 7.5 Hz, 30-50 uV, mostly evident on the right, which was reactive to eye opening and closing. Drowsiness was associated with slow roving eye movements, slowing and fragmentation of the posterior dominant rhythm, and bilateral 4-7 Hz, 40-70 uV theta activity, sometimes with a shifting predominance. Hyperventilation and photic stimulation were not performed. EEG Finding during sleep: No sleep seen Interictal non-epileptiform abnormalities: Through the test there were frequent bursts of generalized bifrontal left more than right irregular sharp activity, lasting 200 msc or less, that was paroxysmal not clearly epileptiform. Interictal epileptiform abnormalities: none Ictal epileptiform abnormalities: No seizures No PB activations Induction procedures: none - Impression Impression: This is an abnormal video-EEG monitoring study due to the presence of 1. Diffuse background slowing. 2. No seizures were recorded. 3. Burst of paroxysmal activity not clearly epileptiform. INTERPRETATION: The above mentioned findings are in keeping with a mild non specific diffuse disturbance of cortical activity, in keeping with a diffuse odell matter dysfunction. These findings do not support a specific etiology. Patient is not in status epilepticus.
[2018-09-25] MEDS: Hydrocortisone 2.5% Rectal Cream(30 gm) PR SCH ×2 (09:41→19:25)
[2018-09-25] MEDS: Metoprolol Succinate 50 mg XL Tab PO SCH ×2 (10:00→19:49)
--- NOTE | 2018-09-25 12:11 | CP.PCM.PN ---
Subjective - Date & Time of Evaluation Date of Evaluation: 09/25/18 Time of Evaluation: 12:09 - Subjective Subjective: pt is being dialyzed, uf goal is about 2.5 lit pt is more alert , awake, he knows the year he is born , not date or month, he knows he is in [facility] Objective - Vital Signs/Intake and Output Vital Signs (last 24 hours): Temp Pulse Resp BP Pulse Ox 97.6 F 78 14 149/60 96 09/25/18 11:00 09/25/18 12:00 09/25/18 12:00 09/25/18 12:00 09/25/18 12:00 Intake and Output: 09/25/18 09/25/18 06:59 18:59 Intake Total 100 180 Balance 100 180 - Medications Medications: Current Medications Acetaminophen (Tylenol 325mg Tab) 650 mg PO Q6 PRN PRN Reason: Fever >100.4 F Last Admin: 09/23/18 11:39 Dose: 650 mg Aspirin (Aspirin) 325 mg PO DAILY [facility] Last Admin: 09/24/18 09:33 Dose: 325 mg Calcitriol (Rocaltrol) 0.25 mcg PO DAILY [facility] Last Admin: 09/24/18 09:34 Dose: 0.25 mcg Calcium Acetate (Phoslo) 667 mg PO TID [facility] Last Admin: 09/24/18 18:24 Dose: Not Given Epoetin Omi (Procrit) 10,000 unit IV MWF [facility] Last Admin: 09/22/18 12:12 Dose: 10,000 unit Famotidine (Pepcid) 20 mg PO DAILY [facility] Last Admin: 09/24/18 09:33 Dose: 20 mg Ferrous Sulfate (Feosol) 325 mg PO DAILY [facility] Last Admin: 09/24/18 09:33 Dose: 325 mg Finasteride (Proscar) 5 mg PO DAILY [facility] Last Admin: 09/25/18 09:41 Dose: Not Given Hydralazine HCl (Apresoline) 50 mg PO Q8 [facility] Last Admin: 09/25/18 06:00 Dose: Not Given Hydrocortisone (Anusol-Hc) 0 gm [place] BID [facility] Last Admin: 09/25/18 09:41 Dose: Not Given Lactic Acid (Lac-Hydrin 12% Lotion (225 G)) 0 gm EXT DAILY [facility] Last Admin: 09/24/18 09:34 Dose: 1 applic Lactulose (Enulose) 20 gm PO DAILY [facility] Last Admin: 09/25/18 09:42 Dose: Not Given Metoprolol Succinate (Toprol Xl) 50 mg PO BID [facility] Last Admin: 09/24/18 18:24 Dose: Not Given Rosuvastatin Calcium (Crestor) 5 mg PO HS [facility] Last Admin: 09/24/18 22:00 Dose: Not Given - Labs Labs: 09/25/18 05:37 09/25/18 05:37 PT 12.6 SECONDS (9.7-12.2) H 09/24/18 13:35 INR 1.2 09/24/18 13:35 APTT 30 SECONDS (21-34) 09/24/18 13:35 - Constitutional Appears: Well, Non-toxic, No Acute Distress - Head Exam Head Exam: ATRAUMATIC, NORMAL INSPECTION - Eye Exam Eye Exam: EOMI, Normal appearance, PERRL Pupil Exam: NORMAL ACCOMODATION - ENT Exam ENT Exam: Mucous Membranes Moist - Neck Exam Neck Exam: Full ROM - Respiratory Exam Respiratory Exam: Clear to Ausculation Bilateral, NORMAL BREATHING PATTERN - Cardiovascular Exam Cardiovascular Exam: REGULAR RHYTHM, +S1, +S2 - Rectal Exam Rectal Exam: Deferred - Extremities Exam Additional comments: s/p left bka, dressing to rt leg present - Neurological Exam Neurological Exam: Awake, CN II-XII Intact Additional comments: confused, oriented x 2 - Psychiatric Exam Psychiatric exam: Flat Affect - Skin Skin Exam: Normal Color
--- NOTE | 2018-09-25 12:28 | CP.PCM.PN ---
<Magnolia Gregory - Last Filed: 09/25/18 16:42> Subjective - Date & Time of Evaluation Date of Evaluation: 09/25/18 Time of Evaluation: 12:24 - Subjective Subjective: Neurology Consultation Follow-Up Note: Mr. Richards was evaluated today in the ICU receiving bedside HD. During evaluation he was connected to the continuous video EEG that was ordered by Dr. Conrad. Per nursing staff, Mr. Richards was agitated last night into early this morning and received Ativan. During exam, Mr. Richards is awake and alert, however, he does not verbally answer questions. He does nod and shake head to answer "yes" or "no". When asked if he has a headache, dizziness, visual changes, he shakes is head "no." Physical exam limited as the patient could not follow some of my commands. During exam Mr. Richards did not exhibit any facial or right arm twitching as before. Objective - Vital Signs/Intake and Output Vital Signs (last 24 hours): Temp Pulse Resp BP Pulse Ox 97.6 F 78 14 149/60 96 09/25/18 11:00 09/25/18 12:00 09/25/18 12:00 09/25/18 12:00 09/25/18 12:00 Intake and Output: 09/25/18 09/25/18 06:59 18:59 Intake Total 100 400 Balance 100 400 - Medications Medications: Current Medications Acetaminophen (Tylenol 325mg Tab) 650 mg PO Q6 PRN PRN Reason: Fever >100.4 F Last Admin: 09/23/18 11:39 Dose: 650 mg Aspirin (Aspirin) 325 mg PO DAILY [facility] Last Admin: 09/24/18 09:33 Dose: 325 mg Calcitriol (Rocaltrol) 0.25 mcg PO DAILY [facility] Last Admin: 09/24/18 09:34 Dose: 0.25 mcg Calcium Acetate (Phoslo) 667 mg PO TID [facility] Last Admin: 09/24/18 18:24 Dose: Not Given Epoetin Omi (Procrit) 10,000 unit IV MWF [facility] Last Admin: 09/22/18 12:12 Dose: 10,000 unit Famotidine (Pepcid) 20 mg PO DAILY [facility] Last Admin: 09/24/18 09:33 Dose: 20 mg Ferrous Sulfate (Feosol) 325 mg PO DAILY [facility] Last Admin: 09/24/18 09:33 Dose: 325 mg Finasteride (Proscar) 5 mg PO DAILY [facility] Last Admin: 09/25/18 09:41 Dose: Not Given Hydralazine HCl (Apresoline) 50 mg PO Q8 [facility] Last Admin: 09/25/18 06:00 Dose: Not Given Hydrocortisone (Anusol-Hc) 0 gm [place] BID [facility] Last Admin: 09/25/18 09:41 Dose: Not Given Lactic Acid (Lac-Hydrin 12% Lotion (225 G)) 0 gm EXT DAILY [facility] Last Admin: 09/24/18 09:34 Dose: 1 applic Lactulose (Enulose) 20 gm PO DAILY [facility] Last Admin: 09/25/18 09:42 Dose: Not Given Metoprolol Succinate (Toprol Xl) 50 mg PO BID [facility] Last Admin: 09/24/18 18:24 Dose: Not Given Rosuvastatin Calcium (Crestor) 5 mg PO HS [facility] Last Admin: 09/24/18 22:00 Dose: Not Given - Labs Labs: 09/25/18 05:37 09/25/18 05:37 PT 12.6 SECONDS (9.7-12.2) H 09/24/18 13:35 INR 1.2 09/24/18 13:35 APTT 30 SECONDS (21-34) 09/24/18 13:35 - Constitutional Appears: Non-toxic (nods and shakes head for yes or no; unable to assess if pt is confused 2/2 being given Ativan and he is not verbally answering questions), No Acute Distress, Older Than Stated Age - Head Exam Head Exam: ATRAUMATIC, NORMAL INSPECTION, NORMOCEPHALIC - Eye Exam Eye Exam: EOMI, Normal appearance Pupil Exam: NORMAL ACCOMODATION, PERRL - ENT Exam ENT Exam: Mucous Membranes Moist - Neck Exam Neck Exam: Normal Inspection - Respiratory Exam Respiratory Exam: NORMAL BREATHING PATTERN - Neurological Exam Neurological Exam: Alert, Awake Additional comments: Could not assess fine motor or strength to extremities as patient would not follow commands to do so. He was also noted to be wearing mittens on both hands for safety per nursing. No twitching to right arm or right side of face noted. - Psychiatric Exam Additional comments: Appears calm and comfortable; patient was not verbally responding to questions. He was also given Ativan earlier per nursing staff. - Skin Skin Exam: Normal Color Assessment and Plan (1) Focal motor seizure Assessment & Plan: -Likely toxic metabolic encephalopathy--will evaluate for improvements in mental status once patient is dialyzed. -Mr. Richards is receiving bedside HD, as recommended. -Continuous EEG to be read once it is completed. -Hold anti-epilectic medication for now until EEG resulted and if Mr. Richards has further focal seizures. -Please notify neuro team of any acute changes in condition. Case discussed with Dr. Gregg. Thank you for allowing us to participate in this patient's care. Status: Acute <Ronald Gregg - Last Filed: 09/25/18 17:04> Objective - Vital Signs/Intake and Output Vital Signs (last 24 hours): Temp Pulse Resp BP Pulse Ox 97.6 F 95 H 16 124/60 100 09/25/18 11:00 09/25/18 14:30 09/25/18 14:30 09/25/18 14:30 09/25/18 14:30 Intake and Output: 09/25/18 09/25/18 06:59 18:59 Intake Total 100 920 Balance 100 920 - Medications Medications: Current Medications Acetaminophen (Tylenol 325mg Tab) 650 mg PO Q6 PRN PRN Reason: Fever >100.4 F Last Admin: 09/23/18 11:39 Dose: 650 mg Aspirin (Aspirin) 325 mg PO DAILY [facility] Last Admin: 09/25/18 13:53 Dose: Not Given Calcitriol (Rocaltrol) 0.25 mcg PO DAILY [facility] Last Admin: 09/25/18 10:00 Dose: Not Given Calcium Acetate (Phoslo) 667 mg PO TID [facility] Last Admin: 09/25/18 13:54 Dose: Not Given Epoetin Omi (Procrit) 10,000 unit IV MWF [facility] Last Admin: 09/25/18 12:57 Dose: 10,000 unit Famotidine (Pepcid) 20 mg PO DAILY [facility] Last Admin: 09/25/18 13:54 Dose: Not Given Ferrous Sulfate (Feosol) 325 mg PO DAILY [facility] Last Admin: 09/25/18 13:53 Dose: Not Given Finasteride (Proscar) 5 mg PO DAILY [facility] Last Admin: 09/25/18 09:41 Dose: Not Given Hydralazine HCl (Apresoline) 50 mg PO Q8 [facility] Last Admin: 09/25/18 14:03 Dose: Not Given Hydrocortisone (Anusol-Hc) 0 gm [place] BID [facility] Last Admin: 09/25/18 09:41 Dose: Not Given Valproate Sodium 1,000 mg/ (Sodium Chloride) 110 mls @ 110 mls/hr IVPB ONCE ONE Stop: 09/25/18 17:59 Lactic Acid (Lac-Hydrin 12% Lotion (225 G)) 0 gm EXT DAILY [facility] Last Admin: 09/25/18 13:54 Dose: Not Given Lactulose (Enulose) 20 gm PO DAILY [facility] Last Admin: 09/25/18 09:42 Dose: Not Given Metoprolol Succinate (Toprol Xl) 50 mg PO BID [facility] Last Admin: 09/25/18 10:00 Dose: Not Given Rosuvastatin Calcium (Crestor) 5 mg PO HS [facility] Last Admin: 09/24/18 22:00 Dose: Not Given - Labs Labs: 09/25/18 05:37 09/25/18 05:37 PT 12.6 SECONDS (9.7-12.2) H 09/24/18 13:35 INR 1.2 09/24/18 13:35 APTT 30 SECONDS (21-34) 09/24/18 13:35 Assessment and Plan - Assessment and Plan (Free Text) Assessment: 73 yr old male who has what appears to be triphasics and sharp waves on his EEG that at times seem to coalesce and evolve into small, discrete,short lived seizures. Case and plan discussed with adrien berumen np, and agree wt assessment and plan. 1. Ammonia level. 2. Start depakote at 500 mg bid, loading dose of [address] you [address] gregg
[2018-09-25] MEDS: Epoetin Alfa 10,000 unit/ml Dialysis IV SCH (12:57)
[2018-09-25] MEDS: Ammonium Lactate 12% Lotion (225 g) EXT SCH (13:54)
--- NOTE | 2018-09-25 15:44 | CP.PCM.PN ---
Subjective - Date & Time of Evaluation Date of Evaluation: 09/25/18 Time of Evaluation: 11:30 - Subjective Subjective: Podiatry Progress Note for Dr. Stoll 73 year old male evaluated in ICU for right leg wound. Patient is AAOx3 and NAD, resting comfortably in bed. Denies any pain to his leg wound. Denies any recent N/V/F/C/CP/SOB/D. No other pedal complains at this time. Objective - Vital Signs/Intake and Output Vital Signs (last 24 hours): Temp Pulse Resp BP Pulse Ox 97.6 F 95 H 16 124/60 100 09/25/18 11:00 09/25/18 14:30 09/25/18 14:30 09/25/18 14:30 09/25/18 14:30 Intake and Output: 09/25/18 09/25/18 06:59 18:59 Intake Total 100 920 Balance 100 920 - Medications Medications: Current Medications Acetaminophen (Tylenol 325mg Tab) 650 mg PO Q6 PRN PRN Reason: Fever >100.4 F Last Admin: 09/23/18 11:39 Dose: 650 mg Aspirin (Aspirin) 325 mg PO DAILY [facility] Last Admin: 09/25/18 13:53 Dose: Not Given Calcitriol (Rocaltrol) 0.25 mcg PO DAILY [facility] Last Admin: 09/25/18 10:00 Dose: Not Given Calcium Acetate (Phoslo) 667 mg PO TID [facility] Last Admin: 09/25/18 13:54 Dose: Not Given Epoetin Omi (Procrit) 10,000 unit IV MWF [facility] Last Admin: 09/25/18 12:57 Dose: 10,000 unit Famotidine (Pepcid) 20 mg PO DAILY [facility] Last Admin: 09/25/18 13:54 Dose: Not Given Ferrous Sulfate (Feosol) 325 mg PO DAILY [facility] Last Admin: 09/25/18 13:53 Dose: Not Given Finasteride (Proscar) 5 mg PO DAILY [facility] Last Admin: 09/25/18 09:41 Dose: Not Given Hydralazine HCl (Apresoline) 50 mg PO Q8 [facility] Last Admin: 09/25/18 14:03 Dose: Not Given Hydrocortisone (Anusol-Hc) 0 gm [place] BID [facility] Last Admin: 09/25/18 09:41 Dose: Not Given Lactic Acid (Lac-Hydrin 12% Lotion (225 G)) 0 gm EXT DAILY [facility] Last Admin: 09/25/18 13:54 Dose: Not Given Lactulose (Enulose) 20 gm PO DAILY [facility] Last Admin: 09/25/18 09:42 Dose: Not Given Metoprolol Succinate (Toprol Xl) 50 mg PO BID [facility] Last Admin: 09/25/18 10:00 Dose: Not Given Rosuvastatin Calcium (Crestor) 5 mg PO HS [facility] Last Admin: 09/24/18 22:00 Dose: Not Given - Labs Labs: 09/25/18 05:37 09/25/18 05:37 PT 12.6 SECONDS (9.7-12.2) H 09/24/18 13:35 INR 1.2 09/24/18 13:35 APTT 30 SECONDS (21-34) 09/24/18 13:35 - Constitutional Appears: Well, Non-toxic, No Acute Distress - Extremities Exam Additional comments: RLE focused exam: VASC: DP non-palpable, PT faintly palpable, cap refill > 3 seconds, Temperature gradient warm to warm, no edema noted DERM: Small superficial healed ulceration with dry eshcar noted to anterior aspect of R leg measuring approximately .5x.5.x0.1. no drainage, no malodor, no tunneling, no tracking, no erythema, no other clinical signs of infection. Diffuse xerosis to R lower extremity NEURO: Epicritic and protective sensation grossly diminished ORTHO: No pain upon palpation of ulceration site, MMT 5/5 to the RLE, L BKA - Neurological Exam Neurological Exam: Alert, Awake, Oriented x3 Assessment and Plan - Assessment and Plan (Free Text) Assessment: 73 year old male evaluated for right leg wound Plan: Patient seen and evaluated Discussed plan with attending Dr. Stoll Afebriindu Wound dressed with betadine, DSD Continue IV abx per ID No plan for surgical intervention at this time Stable from podiatry standpoint at this time - Please re-consult if needed
--- NOTE | 2018-09-25 16:06 | CP.PCM.PN ---
Subjective - Date & Time of Evaluation Date of Evaluation: 09/25/18 Time of Evaluation: 16:06 - Subjective Subjective: CHIEF COMPLAINTS TODAY : events noted over the weekend Patient apparently got confused ? seizure Twitchings of the face and arm as noted Patient moved to ICU for 24 hour EEG Patient seen in ICU today09/25/18-Undergoing 24-hour EEG Seen by neurologist. afebrile ,vss patient arousable but confused Opens eyes to name, responds to simple commands . ROS. ( on observation only ) HEENT : N. Resp : mild cough, no wheezing ,pleuritic CP ,or hemoptysis Cardio : No anginal CP, PND, orthopnea, palpitation GI : NO n/v ,diarrhea or GI bleeding . [employer] : No headache, vertigo, focal deficit. moves all extremities. Presently no jerking movements noted. Musculoskel : No joint swelling , Derm : No rash Psych : Normal affect. Ext : No swelling ,calf pain PE. Pt. is arousable, confused in no distress. V.S As noted in the chart Head ,ear nose,throat and eyes : Normal. Neck : Supple with normal carotids. Lungs: Clear air entry. Heart : S1 & S2 normal with S4. No murmur. Abd :LOWER ABDOMEN -ve tenderness ,with normal bowel sounds. Neuro : Moves all ext. LEFT BKA, RT LOWER EXTREMITY WITH A HEALING LACERATION, +VE DRESSING IN PLACE Ext : No edema with intact pulses.Non tender calves Derm : No rashes or decubitus ulcer. LABS/RADIOLOGY: [id number] Repeat blood cultures-ve growth to date. hida scan 09/23/18 normal. cystic duct patent WBC IMPROVING, URINE CULTURE +VE KLEIBSIELLA-PNEUMONIA S-CEFEPIME ABD US/PELVIC US NOTED09/19 ASSESSMENT. ALTERED MENTAL STATUS /? METABOLIC ENCEPHALOPATHY ? DRUG RELATED-TOXICITY ? SEC TO CEFEPIME UROSEPSIS KLEIBSIELLA-PNEUMONIAE +VE GALLSTONES/FATTY LIVER/MILDLY DILATED CBD/SMALL GS IN NECK OF GB (hida -ve ) PVD /LT. BKA. ESRD ON HD TTS NOW MWF CAD. /PLAN : OFF IV CEFEPIME SINCE 09/24/18 DISCUSSED WITH HOSPITALIST. PATIENT DOES NOT APPEAR TO BE SEPTIC. HOLD OFF ANTIBIOTICS FOR NOW F/U REPEAT URINE CULTURE.-? PT NOT VOIDING (ESRD ) PER PMD/NEUROLOGY. oBSERVE FEVER CURVE OFF ANTIBIOTICS. Objective - Vital Signs/Intake and Output Vital Signs (last 24 hours): Temp Pulse Resp BP Pulse Ox 97.6 F 95 H 16 124/60 100 09/25/18 11:00 09/25/18 14:30 09/25/18 14:30 09/25/18 14:30 09/25/18 14:30 Intake and Output: 09/25/18 09/25/18 06:59 18:59 Intake Total 100 920 Balance 100 920 - Medications Medications: Current Medications Acetaminophen (Tylenol 325mg Tab) 650 mg PO Q6 PRN PRN Reason: Fever >100.4 F Last Admin: 09/23/18 11:39 Dose: 650 mg Aspirin (Aspirin) 325 mg PO DAILY [facility] Last Admin: 09/25/18 13:53 Dose: Not Given Calcitriol (Rocaltrol) 0.25 mcg PO DAILY [facility] Last Admin: 09/25/18 10:00 Dose: Not Given Calcium Acetate (Phoslo) 667 mg PO TID [facility] Last Admin: 09/25/18 13:54 Dose: Not Given Epoetin Omi (Procrit) 10,000 unit IV MWF [facility] Last Admin: 09/25/18 12:57 Dose: 10,000 unit Famotidine (Pepcid) 20 mg PO DAILY [facility] Last Admin: 09/25/18 13:54 Dose: Not Given Ferrous Sulfate (Feosol) 325 mg PO DAILY [facility] Last Admin: 09/25/18 13:53 Dose: Not Given Finasteride (Proscar) 5 mg PO DAILY [facility] Last Admin: 09/25/18 09:41 Dose: Not Given Hydralazine HCl (Apresoline) 50 mg PO Q8 [facility] Last Admin: 09/25/18 14:03 Dose: Not Given Hydrocortisone (Anusol-Hc) 0 gm [place] BID [facility] Last Admin: 09/25/18 09:41 Dose: Not Given Lactic Acid (Lac-Hydrin 12% Lotion (225 G)) 0 gm EXT DAILY [facility] Last Admin: 09/25/18 13:54 Dose: Not Given Lactulose (Enulose) 20 gm PO DAILY [facility] Last Admin: 09/25/18 09:42 Dose: Not Given Metoprolol Succinate (Toprol Xl) 50 mg PO BID [facility] Last Admin: 09/25/18 10:00 Dose: Not Given Rosuvastatin Calcium (Crestor) 5 mg PO HS [facility] Last Admin: 09/24/18 22:00 Dose: Not Given - Labs Labs: 09/25/18 05:37 09/25/18 05:37 PT 12.6 SECONDS (9.7-12.2) H 09/24/18 13:35 INR 1.2 09/24/18 13:35 APTT 30 SECONDS (21-34) 09/24/18 13:35 Assessment and Plan (1) Abdominal pain Status: Acute (2) Fever Status: Acute (3) ESRD (end stage renal disease) on dialysis Status: Acute (4) Peripheral vascular disease Status: Acute (5) Diverticulitis Status: Acute
[2018-09-25] MEDS ORDERED: Valproate 1,000 MG in Sodium Chloride 0.9% 100 ML IVPB ONE (17:00)
--- NOTE | 2018-09-25 17:49 | CARD ---
APPROVED REPORT Date of service: 09/18/2018 EKG Measurement Heart [id number] <Conclusion> Sinus tachycardia Possible Left atrial enlargement Right bundle branch block Inferior infarct, age undetermined Anteroseptal infarct, age undetermined Abnormal ECG
--- NOTE | 2018-09-25 17:53 | PN ---
DATE: 09/25/2018 SUBJECTIVE: The patient was transferred to the ICU and was later agitated and required IV Ativan at 11. He is currently sleepy, confused to place. No reported hypotension or ventricular arrhythmia. PHYSICAL EXAMINATION: VITAL SIGNS: Blood pressure 77/82, heart rate 75, temperature 97.6, respirations 15. HEENT: Pale conjunctivae. CHEST: Clear. HEART: S1 and S2 regular. EXTREMITIES: Left below-knee amputation. LABORATORY DATA: Today's SMA-7 sodium 137, potassium 5.7, chloride 100, CO2 of 20, glucose 103, BUN 54, creatinine 9.8. Today's hemoglobin and hematocrit 10.8 and 33.8. White count and platelet count are within normal limits. Yesterday's chest x-ray revealed mild cardiomegaly ventricular pacemaker lead, prominent bronchovascular markings. Flat plate of the abdomen was unremarkable. ASSESSMENT: 1. Altered mental status, rule out focal seizure activity. 3. urinary tract infection. 3. Coronary artery disease with known total occlusion of the right coronary artery. 4. End-stage renal disease on hemodialysis. 5. Mild anemia. RECOMMENDATIONS neurology evaluation and followup and the assessment was toxic/metabolic encephalopathy could be induced by Maxipime and Keppra was started for seizure. Continue aspirin 325 mg once a day, Procrit 10,000 units intravenously Tuesday, Tuesday and Tuesday. Resume Toprol XL 50 mg twice a day. If there is no contraindication, obtain 12-lead EKG now. Roberto Mayer MD
--- NOTE | 2018-09-26 02:02 | CP.PCM.PN ---
Subjective - Date & Time of Evaluation Date of Evaluation: 09/25/18 - Subjective Subjective: dictated Objective - Vital Signs/Intake and Output Vital Signs (last 24 hours): Temp Pulse Resp BP Pulse Ox 98.2 F 90 15 156/74 H 96 09/26/18 00:00 09/26/18 01:00 09/26/18 01:00 09/26/18 01:14 09/26/18 01:00 Intake and Output: 09/25/18 09/26/18 18:59 06:59 Intake Total 1230 0 Output Total 2000 Balance -770 0 - Medications Medications: Current Medications Acetaminophen (Tylenol 325mg Tab) 650 mg PO Q6 PRN PRN Reason: Fever >100.4 F Last Admin: 09/23/18 11:39 Dose: 650 mg Aspirin (Aspirin) 325 mg PO DAILY [facility] Last Admin: 09/25/18 13:53 Dose: Not Given Calcitriol (Rocaltrol) 0.25 mcg PO DAILY [facility] Last Admin: 09/25/18 10:00 Dose: Not Given Calcium Acetate (Phoslo) 667 mg PO TID [facility] Last Admin: 09/25/18 19:26 Dose: Not Given Epoetin Omi (Procrit) 10,000 unit IV MWF [facility] Last Admin: 09/25/18 12:57 Dose: 10,000 unit Famotidine (Pepcid) 20 mg PO DAILY [facility] Last Admin: 09/25/18 13:54 Dose: Not Given Ferrous Sulfate (Feosol) 325 mg PO DAILY [facility] Last Admin: 09/25/18 13:53 Dose: Not Given Finasteride (Proscar) 5 mg PO DAILY [facility] Last Admin: 09/25/18 09:41 Dose: Not Given Hydralazine HCl (Apresoline) 50 mg PO Q8 [facility] Last Admin: 09/25/18 22:47 Dose: 50 mg Hydrocortisone (Anusol-Hc) 0 gm [place] BID [facility] Last Admin: 09/25/18 19:25 Dose: Not Given Lactic Acid (Lac-Hydrin 12% Lotion (225 G)) 0 gm EXT DAILY [facility] Last Admin: 09/25/18 13:54 Dose: Not Given Lactulose (Enulose) 20 gm PO DAILY [facility] Last Admin: 09/25/18 09:42 Dose: Not Given Metoprolol Succinate (Toprol Xl) 50 mg PO BID [facility] Last Admin: 09/25/18 19:49 Dose: Not Given Rosuvastatin Calcium (Crestor) 5 mg PO HS [facility] Last Admin: 09/25/18 22:47 Dose: 5 mg - Labs Labs: 09/25/18 05:37 09/25/18 05:37 PT 12.6 SECONDS (9.7-12.2) H 09/24/18 13:35 INR 1.2 09/24/18 13:35 APTT 30 SECONDS (21-34) 09/24/18 13:35
--- NOTE | 2018-09-26 03:12 | CP.PCM.PN ---
Subjective - Date & Time of Evaluation Date of Evaluation: 09/19/18 - Subjective Subjective: dictated Objective - Vital Signs/Intake and Output Vital Signs (last 24 hours): Temp Pulse Resp BP Pulse Ox 98.2 F 90 15 156/74 H 96 09/26/18 00:00 09/26/18 01:00 09/26/18 01:00 09/26/18 01:14 09/26/18 01:00 Intake and Output: 09/25/18 09/26/18 18:59 06:59 Intake Total 1230 0 Output Total 2000 Balance -770 0 - Medications Medications: Current Medications Acetaminophen (Tylenol 325mg Tab) 650 mg PO Q6 PRN PRN Reason: Fever >100.4 F Last Admin: 09/23/18 11:39 Dose: 650 mg Aspirin (Aspirin) 325 mg PO DAILY [facility] Last Admin: 09/25/18 13:53 Dose: Not Given Calcitriol (Rocaltrol) 0.25 mcg PO DAILY [facility] Last Admin: 09/25/18 10:00 Dose: Not Given Calcium Acetate (Phoslo) 667 mg PO TID [facility] Last Admin: 09/25/18 19:26 Dose: Not Given Epoetin Omi (Procrit) 10,000 unit IV MWF [facility] Last Admin: 09/25/18 12:57 Dose: 10,000 unit Famotidine (Pepcid) 20 mg PO DAILY [facility] Last Admin: 09/25/18 13:54 Dose: Not Given Ferrous Sulfate (Feosol) 325 mg PO DAILY [facility] Last Admin: 09/25/18 13:53 Dose: Not Given Finasteride (Proscar) 5 mg PO DAILY [facility] Last Admin: 09/25/18 09:41 Dose: Not Given Hydralazine HCl (Apresoline) 50 mg PO Q8 [facility] Last Admin: 09/25/18 22:47 Dose: 50 mg Hydrocortisone (Anusol-Hc) 0 gm WA BID [facility] Last Admin: 09/25/18 19:25 Dose: Not Given Lactic Acid (Lac-Hydrin 12% Lotion (225 G)) 0 gm EXT DAILY [facility] Last Admin: 09/25/18 13:54 Dose: Not Given Lactulose (Enulose) 20 gm PO DAILY [facility] Last Admin: 09/25/18 09:42 Dose: Not Given Metoprolol Succinate (Toprol Xl) 50 mg PO BID [facility] Last Admin: 09/25/18 19:49 Dose: Not Given Rosuvastatin Calcium (Crestor) 5 mg PO HS [facility] Last Admin: 09/25/18 22:47 Dose: 5 mg - Labs Labs: 09/25/18 05:37 09/25/18 05:37 PT 12.6 SECONDS (9.7-12.2) H 09/24/18 13:35 INR 1.2 09/24/18 13:35 APTT 30 SECONDS (21-34) 09/24/18 13:35
--- NOTE | 2018-09-26 07:49 | PN ---
DATE: 09/26/2018 SUBJECTIVE: The patient continued to have lower abdominal pain, terminal dysuria, frequency of urination. He is on antibiotics, and he is to be seen by Infectious Disease. The patient also has some suprapubic discomfort. The patient denies any fall or trauma. She denies any cough or sore throat. PHYSICAL EXAMINATION: VITAL SIGNS: Blood pressure is 108/50, pulse 98, respiratory rate 20, temperature 99.5. LUNGS: Clear. CARDIOVASCULAR SYSTEM: S1 and S2 regular. ABDOMEN: Soft. ASSESSMENT: 1. Urinary tract infection, rule out pyelonephritis, rule out septicemia. The patient is on anticoagulation. 2. Chronic kidney disease, on hemodialysis. 3. Peripheral arterial disease with left below knee amputation, status post stent in right leg by Dr. Acevedo. 4. Diverticulitis. PLAN: Antibiotics. The patient's HIDA scan is negative with patent cystic duct. Continue antibiotics. Monitor the patient. Emilio Israel MD
--- NOTE | 2018-09-26 07:58 | PN ---
DATE: 09/26/2018 SUBJECTIVE: The patient, Valentino Richards, is altered. He is confused. He is arousable. His responses are inappropriate. He has tremor in the right hand. He has been seen by Neurology, and he has received intravenous valproate. The patient is afebrile. No respiratory or cardiac distress, but he is confused which is unusual. PHYSICAL EXAMINATION: VITAL SIGNS: Blood pressure is 166/78, pulse 114, respiratory rate 20, temperature 98.2. LUNGS: Clear. CARDIOVASCULAR SYSTEM: S1 and S2 plus S4 positive. ABDOMEN: Soft. ASSESSMENT: 1. Altered mental status, rule out extrapyramidal syndrome, rule out seizure. 2. Hypertension. 3. Congestive heart failure. 4. Chronic kidney disease, on hemodialysis. 5. Peripheral arterial disease. 6. Urine culture was positive for Klebsiella. The patient is on antibiotics per Infectious Disease. PLAN: 1. Continue antibiotics. 2. Continue neuro check. 3. Continue Neurology followup. 4. The patient will be followed closely. Emilio Israel MD
--- NOTE | 2018-09-26 08:20 | CP.CCUPN ---
CCU Subjective - Physician Review Subjective (Free Text): 09/26/18 08:20 PGY-1 Critical Care Progress Note for Dr. Colby Patient seen and examined at bedside this AM. 24 hr EEG monitoring completed, reviewed by Neurology, appears to be triphasics and sharp waves on his EEG that at times seem to coalesce and evolve into small, discrete,short lived seizures. Patient is awake, alert but confused. Minimally responsive to questions but states that "something isn't right". 12 pt ROS difficult to obtain due to patient's clinical status. Critical Care Time Spent (in minutes): 35 CCU Objective - Vital Signs / Intake & Output Vital Signs (Last 4 hours): Vital Signs Pulse Resp BP Pulse Ox 09/26/18 07:00 85 13 98 09/26/18 06:59 86 13 126/50 L 98 09/26/18 06:44 88 14 138/56 L 99 09/26/18 06:30 94 H 15 134/53 L 97 09/26/18 06:15 110 H 192/161 H 92 L 09/26/18 06:00 116 H 177/81 H 87 L 09/26/18 05:45 91 H 185/85 H 97 09/26/18 05:29 95 H 13 155/69 H 09/26/18 05:14 89 11 L 168/78 H 98 09/26/18 05:00 88 14 96 09/26/18 04:59 89 17 155/62 H 97 09/26/18 04:44 89 15 150/54 L 96 09/26/18 04:30 90 14 164/75 H 95 Intake and Output (Last 8hrs): Intake & Output 09/25/18 09/26/18 09/26/18 22:59 06:59 14:59 Intake Total 310 0 Output Total 1999 60 Balance -1690 -60 Intake: Intake, IV Amount 110 0 Right Antecubital 110 0 Oral 200 0 Output: Urine 60 Urine, Voided 60 Other 1999 Other: # Bowel Movements - Physical Exam Head: Positive for: Atraumatic, Normocephalic Pupils: Positive for: PERRL Conjunctiva: Positive for: Normal Mouth: Positive for: Dry Neck: Positive for: Normal Range of Motion Respiratory/Chest: Positive for: Clear to Auscultation, Good Air Exchange. Negative for: Respiratory Distress, Accessory Muscle Use, Wheezes, Rales, Rhonchi Cardiovascular: Positive for: Regular Rate and Rhythm, Normal S1, S2. Negative for: Murmurs Abdomen: Positive for: Normal Bowel Sounds. Negative for: Tenderness, Distention, Peritoneal Signs, Rebound, Guarding Upper Extremity: Positive for: Normal Inspection, NORMAL PULSES, Neurovascularly Intact, Capillary Refill < 2s. Negative for: Cyanosis, Edema, Tenderness, Swelling Lower Extremity: Positive for: Normal Inspection, NORMAL PULSES, Neurovascularly Intact, Capillary Refill < 2 s. Negative for: Edema, CALF TENDERNESS, Swelling Neurological: Positive for: Speech Normal Skin: Positive for: Warm, Dry, Normal Color Psychiatric: Positive for: Alert, Oriented x 3 - Medications Active Medications: Active Medications Generic Name Dose Route Start Last Admin Trade Name Freq PRN Reason Stop Dose Admin Acetaminophen 650 mg 09/18/18 19:11 09/23/18 11:39 Tylenol 325mg Tab PO 650 mg Q6 PRN Administration Fever >100.4 F Aspirin 325 mg 09/19/18 10:00 09/25/18 13:53 Aspirin PO Not Given DAILY [facility] Calcitriol 0.25 mcg 09/19/18 10:00 09/25/18 10:00 Rocaltrol PO Not Given DAILY [facility] Calcium Acetate 667 mg 09/19/18 10:00 09/25/18 19:26 Phoslo PO Not Given TID [facility] Epoetin Omi 10,000 unit 09/20/18 09:00 09/25/18 12:57 Procrit IV 10,000 unit MWF [facility] Administration Famotidine 20 mg 09/19/18 10:00 09/25/18 13:54 Pepcid PO Not Given DAILY [facility] Ferrous Sulfate 325 mg 09/19/18 10:00 09/25/18 13:53 Feosol PO Not Given DAILY [facility] Finasteride 5 mg 09/19/18 10:00 09/25/18 09:41 Proscar PO Not Given DAILY [facility] Hydralazine HCl 50 mg 09/19/18 12:20 09/26/18 06:39 Apresoline PO Not Given Q8 [facility]W Hydrocortisone 0 gm 09/19/18 10:00 09/25/18 19:25 Anusol-Hc TN Not Given BID [facility] Lactic Acid 0 gm 09/20/18 10:00 09/25/18 13:54 Lac-Hydrin 12% Lotion (225 G) EXT Not Given DAILY [facility] Lactulose 20 gm 09/21/18 10:00 09/25/18 09:42 Enulose PO Not Given DAILY [facility] Metoprolol Succinate 50 mg 09/19/18 10:00 09/25/18 19:49 Toprol Xl PO Not Given BID [facility] Rosuvastatin Calcium 5 mg 09/18/18 22:00 09/25/18 22:47 Crestor PO 5 mg HS MAT[facility]W Administration - Patient Studies Lab Studies: Microbiology Studies 09/24/18 13:16 Blood Culture - Preliminary Blood-Venous NO GROWTH AFTER 24 HOURS 09/24/18 13:16 Blood Culture - Preliminary Blood-Venous NO GROWTH AFTER 24 HOURS Lab Studies 09/26/18 09/26/18 09/25/18 Range/Units 05:58 00:12 17:27 POC Glucose (mg/dL) 91 103 85 (65-110) mg/dL 09/25/18 Range/Units 11:40 POC Glucose (mg/dL) 102 (65-110) mg/dL Laboratory Results - last 24 hr 09/25/18 09/25/18 09/26/18 11:40 17:27 00:12 POC Glucose (mg/dL) 102 85 103 09/26/18 05:58 POC Glucose (mg/dL) 91 EKG/Cardiology Studies: Cardiology / EKG Studies 09/25/18 12:53 EKG [ELECTROCARDIOGRAM] Routine Comment: Mode Of Transportation: Reason For Exam: routine Precautions: Fall Prevention Fingerstick Blood Sugar Results: 91 Review of Systems - Review of Systems Systems not reviewed;Unavailable: Altered Mental Status Critical Care Progress Note - Nutrition Nutrition: Nutrition Category Date Time Status NPO Diet [DIET] Diets 09/24/18 Dinner Active Assessment/Plan - Assessment and Plan (Free Text) Assessment: 73 yo M with PMHx of HTN, HLD, ESRD on HD TTS, admitted 09/18 for lower abdominal pain and UTI, started on cefepime/amikacin. 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 Neuro evaluated for apparent facial/RUE twitches, suspected focal seizure vs toxic metabolic encephalopathy. 24 hr EEG completed, reviewed by Neurology, appears to be triphasics and sharp waves on his EEG that at times seem to coalesce and evolve into small, discrete,short lived seizures. Last HD session yesterday. Plan: Focal seizure, AMS Likely 2/2 toxic metabolic encephalopathy -given 5 mg ativan total -CT head: no acute findings -video EEG: appears to be triphasics and sharp waves on his EEG that at times seem to coalesce and evolve into small, discrete,short lived seizures -Neuro recs (Dr. Conrad) appreciated: received loading dose of Valproic Acid 1 gm IV last night. Starting Depakote 500 IV BID this AM. Recommend monitoring for one more day. -seizure, aspiration precautions CV: HTN -Hydralazine 50mg PO q8 -Metoprolol 50 mg PO BID Peripheral vascular disease -ASA, statin Pulm: -not in acute distress -CXR (09/24): no acute findings Heme Chronic anemia 2/2 renal disease -procrit 10,000 units MWF -ferrous sulfate 325 mg PO daily Renal: ESRD -pt on HD TTR -Nephrology recs (Dr. Thakkar) appreciated: HD session done yesterday -phoslo, calcitriol ID UTI -Urine cx (09/19): klebsiella -amikacin/cefepime dc'd -f/u ID recs PPx, Diet, Disposition -GI ppx: pepcid -Diet: NPO Case discussed with Dr. Lasha Mills DO, PGY-1
[2018-09-26 09:33] LABS: BASO # 0.1 K/uL (0.0-0.2); EOS # 0.2 K/uL (0.0-0.7); EOS % 2.1 % (0.0-4.0); HEMOGLOBIN 11.7 g/dL (12.0-18.0); LYMPH # 1.7 K/uL (1.0-4.3); LYMPH % 21.3 % (20.0-40.0); MEAN CELL VOLUME 94.9 fL (80.0-94.0); MEAN CORPUSCULAR HEMOGLOBIN 31.1 pg (27.0-31.0); MEAN CORPUSCULAR HGB CONC 32.7 g/dL (33.0-37.0); MEAN PLATELET VOLUME 8.7 fL (7.2-11.7); MONO # 0.9 K/uL (0.0-0.8); MONO % 11.7 % (0.0-10.0); NEUT % 63.9 % (50.0-75.0); NRBC % 0.3 % (0.0-2.0); RBC 3.77 Mil/uL (4.40-5.90); RED CELL DISTRIBUTION WIDTH 14.8 % (11.5-14.5); WHITE BLOOD COUNT 7.8 K/uL (4.8-10.8)
[2018-09-26] MEDS: Metoprolol Succinate 50 mg XL Tab PO SCH ×2 (09:53→18:12)
[2018-09-26 10:19] LABS: ALBUMIN 4.2 g/dL (3.5-5.0); CALCIUM 8.8 mg/dl (8.6-10.4)
[2018-09-26] MEDS ORDERED: Valproate 500 MG in Sodium Chloride 0.9% 100 ML IVPB ONE (10:21)
--- NOTE | 2018-09-26 10:26 | CP.PCM.PN ---
Subjective - Date & Time of Evaluation Date of Evaluation: 09/26/18 Time of Evaluation: 10:25 - Subjective Subjective: Neurology Consultation Follow-Up Note: Mr. Richards was evaluated today in the ICU with Dr. Burk. Patient had a continuous video EEG done yesterday that was read as abnormal by Dr. Burk. During exam, Mr. Richards is awake, alert, oriented x3, which is an improvement compared to when I saw him yesterday. He answers some questions appropriately during exam but does not follow all commands. Denies headache, dizziness, visual changes, chest pain, shortness of breath, nausea/vomiting, twitching. Per nursing staff, no acute events last night. Physical exam limited as the patient could not follow some of my commands. During exam Mr. Richards did not exhibit any facial or right arm twitching as he did upon arrival to the hospital. Objective - Vital Signs/Intake and Output Vital Signs (last 24 hours): Temp Pulse Resp BP Pulse Ox 98.2 F 85 13 126/50 L 98 09/26/18 00:00 09/26/18 07:00 09/26/18 07:00 09/26/18 06:59 09/26/18 07:00 Intake and Output: 09/26/18 09/26/18 06:59 18:59 Intake Total 0 Output Total 60 Balance -60 - Medications Medications: Current Medications Acetaminophen (Tylenol 325mg Tab) 650 mg PO Q6 PRN PRN Reason: Fever >100.4 F Last Admin: 09/23/18 11:39 Dose: 650 mg Aspirin (Aspirin) 325 mg PO DAILY [facility] Last Admin: 09/26/18 09:53 Dose: 325 mg Calcitriol (Rocaltrol) 0.25 mcg PO DAILY [facility] Last Admin: 09/26/18 09:53 Dose: 0.25 mcg Calcium Acetate (Phoslo) 667 mg PO TID [facility] Last Admin: 09/26/18 09:53 Dose: 667 mg Epoetin Omi (Procrit) 10,000 unit IV MWF [facility] Last Admin: 09/25/18 12:57 Dose: 10,000 unit Famotidine (Pepcid) 20 mg PO DAILY [facility] Last Admin: 09/26/18 09:53 Dose: 20 mg Ferrous Sulfate (Feosol) 325 mg PO DAILY [facility] Last Admin: 09/26/18 09:53 Dose: 325 mg Finasteride (Proscar) 5 mg PO DAILY [facility] Last Admin: 09/26/18 09:53 Dose: 5 mg Heparin Sodium (Porcine) (Heparin) 5,000 units SC Q8 [facility] Hydralazine HCl (Apresoline) 50 mg PO Q8 [facility] Last Admin: 09/26/18 06:39 Dose: Not Given Hydrocortisone (Anusol-Hc) 0 gm FL BID [facility] Last Admin: 09/25/18 19:25 Dose: Not Given Lactic Acid (Lac-Hydrin 12% Lotion (225 G)) 0 gm EXT DAILY [facility] Last Admin: 09/25/18 13:54 Dose: Not Given Lactulose (Enulose) 20 gm PO DAILY [facility] Last Admin: 09/26/18 09:53 Dose: 20 gm Metoprolol Succinate (Toprol Xl) 50 mg PO BID [facility] Last Admin: 09/26/18 09:53 Dose: 50 mg Rosuvastatin Calcium (Crestor) 5 mg PO HS [facility] Last Admin: 09/25/18 22:47 Dose: 5 mg - Labs Labs: 09/26/18 09:30 09/26/18 09:30 PT 12.6 SECONDS (9.7-12.2) H 09/24/18 13:35 INR 1.2 09/24/18 13:35 APTT 30 SECONDS (21-34) 09/24/18 13:35 - Constitutional Appears: Well, Non-toxic, No Acute Distress - Head Exam Head Exam: ATRAUMATIC, NORMAL INSPECTION, NORMOCEPHALIC - Eye Exam Eye Exam: EOMI, Normal appearance - ENT Exam ENT Exam: Mucous Membranes Moist - Neck Exam Neck Exam: Full ROM - Respiratory Exam Respiratory Exam: NORMAL BREATHING PATTERN - Extremities Exam Extremities Exam: Normal Inspection - Neurological Exam Neurological Exam: Alert, Awake, CN II-XII Intact, Oriented x3 Additional comments: Patient able to move all extremities independently, however, I could not assess fine motor or strength to extremities as patient would not follow commands to do so. Right arm and right facial twitching resolved. Patient forgetful with periods of confusion. He could name 10 animals or 10 fruits when asked to do so. - Psychiatric Exam Psychiatric exam: Normal Affect, Normal Mood - Skin Skin Exam: Normal Color Assessment and Plan (1) Focal motor seizure Assessment & Plan: -Mr. Richards' EEG showed seizure activity (read by Dr. Burk). -As a result of the abnormal EEG, Mr. Richards received loading dose of Valproic Acid 1 gm IV last night. -We are starting Valproic Acid 500 mg IV BID this morning. -We recommend to monitor in ICU until tomorrow morning. If Mr. Richards remains stable and/or improves, he may be downgraded then. -Fall precautions. -Please notify neuro team of any acute changes in patient's condition. Case discussed with Dr. Burk. Status: Acute
[2018-09-26] MEDS: Hydrocortisone 2.5% Rectal Cream(30 gm) PR SCH ×4 (11:42→18:07)
[2018-09-26] MEDS: Ammonium Lactate 12% Lotion (225 g) EXT SCH (11:49)
--- NOTE | 2018-09-26 12:32 | CP.PCM.PN ---
Subjective - Date & Time of Evaluation Date of Evaluation: 09/26/18 Time of Evaluation: 12:32 - Subjective Subjective: pt is more alert, awake, oriented x 2, no cp, no sob Objective - Vital Signs/Intake and Output Vital Signs (last 24 hours): Temp Pulse Resp BP Pulse Ox 98.2 F 85 13 126/50 L 98 09/26/18 00:00 09/26/18 07:00 09/26/18 07:00 09/26/18 06:59 09/26/18 07:00 Intake and Output: 09/26/18 09/26/18 06:59 18:59 Intake Total 0 Output Total 60 Balance -60 - Medications Medications: Current Medications Acetaminophen (Tylenol 325mg Tab) 650 mg PO Q6 PRN PRN Reason: Fever >100.4 F Last Admin: 09/23/18 11:39 Dose: 650 mg Aspirin (Aspirin) 325 mg PO DAILY [facility] Last Admin: 09/26/18 09:53 Dose: 325 mg Calcitriol (Rocaltrol) 0.25 mcg PO DAILY [facility] Last Admin: 09/26/18 09:53 Dose: 0.25 mcg Calcium Acetate (Phoslo) 667 mg PO TID [facility] Last Admin: 09/26/18 09:53 Dose: 667 mg Epoetin Omi (Procrit) 10,000 unit IV MWF [facility] Last Admin: 09/25/18 12:57 Dose: 10,000 unit Famotidine (Pepcid) 20 mg PO DAILY [facility] Last Admin: 09/26/18 09:53 Dose: 20 mg Ferrous Sulfate (Feosol) 325 mg PO DAILY [facility] Last Admin: 09/26/18 09:53 Dose: 325 mg Finasteride (Proscar) 5 mg PO DAILY [facility] Last Admin: 09/26/18 09:53 Dose: 5 mg Heparin Sodium (Porcine) (Heparin) 5,000 units SC Q8 [facility] Hydralazine HCl (Apresoline) 50 mg PO Q8 [facility] Last Admin: 09/26/18 06:39 Dose: Not Given Hydrocortisone (Anusol-Hc) 0 gm AR BID [facility] Last Admin: 09/26/18 11:55 Dose: 1 applic Lactic Acid (Lac-Hydrin 12% Lotion (225 G)) 0 gm EXT DAILY [facility] Last Admin: 09/26/18 11:49 Dose: 1 applic Lactulose (Enulose) 20 gm PO DAILY [facility] Last Admin: 09/26/18 09:53 Dose: 20 gm Metoprolol Succinate (Toprol Xl) 50 mg PO BID [facility] Last Admin: 09/26/18 09:53 Dose: 50 mg Rosuvastatin Calcium (Crestor) 5 mg PO HS [facility] Last Admin: 09/25/18 22:47 Dose: 5 mg - Labs Labs: 09/26/18 09:30 09/26/18 09:30 PT 12.6 SECONDS (9.7-12.2) H 09/24/18 13:35 INR 1.2 09/24/18 13:35 APTT 30 SECONDS (21-34) 09/24/18 13:35 - Constitutional Appears: Well, Non-toxic, No Acute Distress - Head Exam Head Exam: ATRAUMATIC, NORMAL INSPECTION - Eye Exam Eye Exam: EOMI, Normal appearance, PERRL Pupil Exam: NORMAL ACCOMODATION - ENT Exam ENT Exam: Mucous Membranes Moist - Neck Exam Neck Exam: Full ROM - Respiratory Exam Respiratory Exam: Clear to Ausculation Bilateral, NORMAL BREATHING PATTERN - Cardiovascular Exam Cardiovascular Exam: REGULAR RHYTHM, +S1, +S2 - Rectal Exam Rectal Exam: Deferred - Extremities Exam Additional comments: s/p left bKA, dressing to rt leg+ - Neurological Exam Neurological Exam: Alert, Awake, CN II-XII Intact Additional comments: oriented x2 - Psychiatric Exam Psychiatric exam: Normal Affect - Skin Skin Exam: Normal Color, Warm Assessment and Plan - Assessment and Plan (Free Text) Assessment: 73 yo AA male with pmh/o htn, dm esrd, pvd, s/p left bka, s/p pacemaker, diverticulosis, s/p diverticulitis, anemia, s/p c.diff , bph was admitted with lower abd. pain, dysuria, frequency, low garde fever 1. ESRD 2. HTN 3. DM 4. UTI 5. AMS, most likely sec to metabolic encephalopathy sec to drug, Maxipime pt is reciving 1gm q 12 hrs (renal dose 500 mg q2 4 hrs), r/o seizers urine c/s is + for GNR, identified as K. pneumonia blood c/s, no growth so far d/c Maxipine c/w current anti HTN meds low na, low K+diet c/w po4 binders for HD in AM f/u with neurology, started on valproic acid for ? seizers
--- NOTE | 2018-09-26 14:29 | CP.PCM.PN ---
Subjective - Date & Time of Evaluation Date of Evaluation: 09/26/18 Time of Evaluation: 14:29 - Subjective Subjective: CHIEF COMPLAINTS TODAY : Patient seen in ICU today. Seen by neurologist. afebrile ,vss AWAKE but confused ABOUT WHAT HAPPENED TO HIM AND HOW HE GOT TO ICU. ROS. HEENT : N. Resp : mild cough, no wheezing ,pleuritic CP ,or hemoptysis Cardio : No anginal CP, PND, orthopnea, palpitation GI : NO n/v ,diarrhea or GI bleeding . [employer] : No headache, vertigo, focal deficit. moves all extremities. Presently no jerking movements noted. Musculoskel : No joint swelling , Derm : No rash Psych : Normal affect. Ext : No swelling ,calf pain PE. Pt. is AWAKE, in no distress. V.S As noted in the chart Head ,ear nose,throat and eyes : Normal. Neck : Supple with normal carotids. Lungs: Clear air entry. Heart : S1 & S2 normal with S4. No murmur. Abd :LOWER ABDOMEN -ve tenderness ,with normal bowel sounds. Neuro : Moves all ext. LEFT BKA, RT LOWER EXTREMITY WITH A HEALING LACERATION, +VE DRESSING IN PLACE Ext : No edema with intact pulses.Non tender calves Derm : No rashes or decubitus ulcer. LABS/RADIOLOGY: [id number] Repeat blood cultures-ve growth to date. ASSESSMENT. ALTERED MENTAL STATUS /? METABOLIC ENCEPHALOPATHY ? DRUG RELATED-TOXICITY ? SEC TO CEFEPIME-IMPROVING UROSEPSIS KLEIBSIELLA-PNEUMONIAE +VE GALLSTONES/FATTY LIVER PVD /LT. BKA. ESRD ON HD TTS NOW MWF CAD. /PLAN : F/U 24 HOUR EEG PENDING. HOLD OFF ANTIBIOTICS FOR NOW F/U REPEAT URINE CULTURE.-? PT NOT VOIDING (ESRD ) PER PMD/NEUROLOGY. OBSERVE FEVER CURVE OFF ANTIBIOTICS. Objective - Vital Signs/Intake and Output Vital Signs (last 24 hours): Temp Pulse Resp BP Pulse Ox 98.2 F 85 13 126/50 L 98 09/26/18 00:00 09/26/18 07:00 09/26/18 07:00 09/26/18 06:59 09/26/18 07:00 Intake and Output: 09/26/18 09/26/18 06:59 18:59 Intake Total 0 Output Total 60 Balance -60 - Medications Medications: Current Medications Acetaminophen (Tylenol 325mg Tab) 650 mg PO Q6 PRN PRN Reason: Fever >100.4 F Last Admin: 09/23/18 11:39 Dose: 650 mg Aspirin (Aspirin) 325 mg PO DAILY [facility] Last Admin: 09/26/18 09:53 Dose: 325 mg Calcitriol (Rocaltrol) 0.25 mcg PO DAILY [facility] Last Admin: 09/26/18 09:53 Dose: 0.25 mcg Calcium Acetate (Phoslo) 667 mg PO TID [facility] Last Admin: 09/26/18 13:45 Dose: 667 mg Epoetin Omi (Procrit) 10,000 unit IV MWF [facility] Last Admin: 09/25/18 12:57 Dose: 10,000 unit Famotidine (Pepcid) 20 mg PO DAILY [facility] Last Admin: 09/26/18 09:53 Dose: 20 mg Ferrous Sulfate (Feosol) 325 mg PO DAILY [facility] Last Admin: 09/26/18 09:53 Dose: 325 mg Finasteride (Proscar) 5 mg PO DAILY [facility] Last Admin: 09/26/18 09:53 Dose: 5 mg Heparin Sodium (Porcine) (Heparin) 5,000 units SC Q8 [facility] Last Admin: 09/26/18 13:45 Dose: 5,000 units Hydralazine HCl (Apresoline) 50 mg PO Q8 [facility] Last Admin: 09/26/18 13:51 Dose: 50 mg Hydrocortisone (Anusol-Hc) 0 gm MT BID [facility] Last Admin: 09/26/18 11:55 Dose: 1 applic Lactic Acid (Lac-Hydrin 12% Lotion (225 G)) 0 gm EXT DAILY [facility] Last Admin: 09/26/18 11:49 Dose: 1 applic Lactulose (Enulose) 20 gm PO DAILY [facility] Last Admin: 09/26/18 09:53 Dose: 20 gm Metoprolol Succinate (Toprol Xl) 50 mg PO BID [facility] Last Admin: 09/26/18 09:53 Dose: 50 mg Rosuvastatin Calcium (Crestor) 5 mg PO HS [facility] Last Admin: 09/25/18 22:47 Dose: 5 mg - Labs Labs: 09/26/18 09:30 09/26/18 09:30 PT 12.6 SECONDS (9.7-12.2) H 09/24/18 13:35 INR 1.2 09/24/18 13:35 APTT 30 SECONDS (21-34) 09/24/18 13:35 Assessment and Plan (1) Abdominal pain Status: Acute (2) Fever Status: Acute (3) ESRD (end stage renal disease) on dialysis Status: Acute (4) Peripheral vascular disease Status: Acute (5) Diverticulitis Status: Acute
--- NOTE | 2018-09-26 15:01 | PN ---
DATE: 09/26/2018 SUBJECTIVE: The patient is confused to place, but he is awake and cooperative. No reported ventricular arrhythmia. PHYSICAL EXAMINATION: VITAL SIGNS: Blood pressure 126/50, heart rate 86, temperature 98.2, respirations 18. HEENT: Normocephalic. CHEST: Clear. HEART: S1 and S2 regular. EXTREMITIES: Left below-knee amputation. LABORATORY DATA: Hemoglobin and hematocrit are 11.7 and 35.7. White count and platelet count are within normal limit. Today's BUN and creatinine 39 and 8.6 respectively. Magnesium is 2.2 within normal limit and calcium is 8.8 within normal limit. EEG: Diffuse background slowing. No seizure was recorded. Burst of paroxysmal activity, not clearly epileptiform. ASSESSMENT: 1. Altered mental status, questionable seizure activity. 2. Coronary artery disease with known total occlusion right coronary artery. 3. Endstage renal disease, on hemodialysis. 4. Peripheral vascular disease status post left below-knee amputation. 5. Klebsiella pneumonia, urinary tract infection. RECOMMENDATIONS: Continue aspirin 325 g once a day, Crestor 5 mg once a day, heparin 5000 units every 8 hours, PhosLo 1 tablet t.i.d., Toprol-XL 50 mg p.o. twice a day. Roberto Mayer MD
--- NOTE | 2018-09-26 21:53 | CP.PCM.PN ---
Subjective - Subjective Subjective: dictated Objective - Vital Signs/Intake and Output Vital Signs (last 24 hours): Temp Pulse Resp BP Pulse Ox 98.1 F 76 14 159/71 H 96 09/26/18 20:00 09/26/18 20:22 09/26/18 20:22 09/26/18 20:22 09/26/18 20:22 Intake and Output: 09/26/18 09/27/18 18:59 06:59 Intake Total 425 0 Balance 425 0 - Medications Medications: Current Medications Acetaminophen (Tylenol 325mg Tab) 650 mg PO Q6 PRN PRN Reason: Fever >100.4 F Last Admin: 09/23/18 11:39 Dose: 650 mg Aspirin (Aspirin) [address] [facility] Last Admin: 09/26/18 09:53 Dose: 325 mg Calcitriol (Rocaltrol) 0.[address] [facility] Last Admin: 09/26/18 09:53 Dose: 0.25 mcg Calcium Acetate (Phoslo) [address] [facility] Last Admin: 09/26/18 18:12 Dose: 667 mg Epoetin Omi (Procrit) 10,[address] [facility] Last Admin: 09/25/18 12:57 Dose: 10,000 unit Famotidine (Pepcid) [address] [facility] Last Admin: 09/26/18 09:53 Dose: 20 mg Ferrous Sulfate (Feosol) [address] [facility] Last Admin: 09/26/18 09:53 Dose: 325 mg Finasteride (Proscar) [address] [facility] Last Admin: 09/26/18 09:53 Dose: 5 mg Heparin Sodium (Porcine) (Heparin) 5,[address] [facility] Last Admin: 09/26/18 21:09 Dose: 5,000 units Hydralazine HCl (Apresoline) [address] [facility] Last Admin: 09/26/18 21:09 Dose: 50 mg Hydrocortisone (Anusol-Hc) [address] [facility] Last Admin: 09/26/18 18:07 Dose: 1 applic Lactic Acid (Lac-Hydrin 12% Lotion (225 G)) [address] [facility] Last Admin: 09/26/18 11:49 Dose: 1 applic Lactulose (Enulose) [address] [facility] Last Admin: 09/26/18 09:53 Dose: 20 gm Metoprolol Succinate (Toprol Xl) [address] [facility] Last Admin: 09/26/18 18:12 Dose: 50 mg Rosuvastatin Calcium (Crestor) [address] [facility] Last Admin: 09/26/18 21:09 Dose: 5 mg - Labs Labs: 09/26/18 09:30 09/26/18 09:30 PT 12.6 SECONDS (9.7-12.2) H 09/24/18 13:35 INR 1.2 09/24/18 13:35 APTT 30 SECONDS (21-34) 09/24/18 13:35
[2018-09-27 05:52] LABS: BASO % 0.5 % (0.0-2.0); EOS # 0.2 K/uL (0.0-0.7); EOS % 2.5 % (0.0-4.0); HEMOGLOBIN 11.7 g/dL (12.0-18.0); LYMPH # 1.3 K/uL (1.0-4.3); LYMPH % 19.5 % (20.0-40.0); MEAN CELL VOLUME 94.7 fL (80.0-94.0); MEAN CORPUSCULAR HEMOGLOBIN 31.1 pg (27.0-31.0); MEAN CORPUSCULAR HGB CONC 32.8 g/dL (33.0-37.0); MEAN PLATELET VOLUME 8.4 fL (7.2-11.7); MONO # 0.8 K/uL (0.0-0.8); MONO % 12.2 % (0.0-10.0); NEUT # 4.2 K/uL (1.8-7.0); NEUT % 65.3 % (50.0-75.0); NRBC % 0.4 % (0.0-2.0); RBC 3.75 Mil/uL (4.40-5.90); RED CELL DISTRIBUTION WIDTH 15.4 % (11.5-14.5); WHITE BLOOD COUNT 6.4 K/uL (4.8-10.8)
[2018-09-27 06:19] LABS: ALB/GLOB RATIO 1.1 (1.0-2.1); ALBUMIN 4.2 g/dL (3.5-5.0); CALCIUM 8.7 mg/dl (8.6-10.4)
[2018-09-27] MEDS: Metoprolol Succinate 50 mg XL Tab PO SCH ×3 (07:59→17:57)
--- NOTE | 2018-09-27 08:41 | CP.CCUPN ---
CCU Subjective - Physician Review Subjective (Free Text): 09/27/18 08:37 PGY-1 Critical Care Progress Note for Dr. Colby Patient seen and examined at bedside this AM. No acute overnight events reported. Patient remains alert and oriented, does not follow all commands but answers questions appropriately. No new facial or UE twitching noted. 12 pt ROS reviewed and negative otherwise. Patient is medically stable for downgrade this morning. Critical Care Time Spent (in minutes): 35 CCU Objective - Vital Signs / Intake & Output Vital Signs (Last 4 hours): Vital Signs Pulse Resp BP Pulse Ox 09/27/18 06:00 77 21 95 09/27/18 05:23 178/83 H 09/27/18 05:00 74 15 Intake and Output (Last 8hrs): Intake & Output 09/26/18 09/27/18 09/27/18 22:59 06:59 14:59 Intake Total 175 50 Balance 175 50 Weight 195 lb 12.8 oz Intake: Oral 175 50 Other: # Bowel Movements 1 1 - Physical Exam Head: Positive for: Atraumatic, Normocephalic Pupils: Positive for: PERRL Conjunctiva: Positive for: Normal Mouth: Positive for: Moist Mucous Membranes Neck: Positive for: Normal Range of Motion Respiratory/Chest: Positive for: Clear to Auscultation, Good Air Exchange. Negative for: Respiratory Distress, Accessory Muscle Use, Wheezes, Rales, Rhonchi Cardiovascular: Positive for: Regular Rate and Rhythm, Normal S1, S2. Negative for: Murmurs Abdomen: Positive for: Normal Bowel Sounds. Negative for: Tenderness, Distention, Peritoneal Signs, Rebound, Guarding Upper Extremity: Positive for: Normal Inspection, NORMAL PULSES, Neurovascularly Intact, Capillary Refill < 2s. Negative for: Cyanosis, Edema, Tenderness, Swelling Lower Extremity: Positive for: Normal Inspection, NORMAL PULSES, Neurovascularly Intact, Capillary Refill < 2 s. Negative for: Edema, CALF TENDERNESS, Swelling Neurological: Positive for: Speech Normal Skin: Positive for: Warm, Dry, Normal Color Psychiatric: Positive for: Alert, Oriented x 3 - Medications Active Medications: Active Medications Generic Name Dose Route Start Last Admin Trade Name Freq PRN Reason Stop Dose Admin Acetaminophen 650 mg 09/18/18 19:11 09/23/18 11:39 Tylenol 325mg Tab PO 650 mg Q6 PRN Administration Fever >100.4 F Aspirin 325 mg 09/19/18 10:00 09/26/18 09:53 Aspirin PO 325 mg DAILY [facility] Administration Calcitriol 0.25 mcg 09/19/18 10:00 09/26/18 09:53 Rocaltrol PO 0.25 mcg DAILY [facility] Administration Calcium Acetate 667 mg 09/19/18 10:00 09/26/18 18:12 Phoslo PO 667 mg TID [facility] Administration Epoetin Omi 10,000 unit 09/20/18 09:00 09/25/18 12:57 Procrit IV 10,000 unit MWF [facility] Administration Famotidine 20 mg 09/19/18 10:00 09/26/18 09:53 Pepcid PO 20 mg DAILY [facility] Administration Ferrous Sulfate 325 mg 09/19/18 10:00 09/26/18 09:53 Feosol PO 325 mg DAILY [facility] Administration Finasteride 5 mg 09/19/18 10:00 09/26/18 09:53 Proscar PO 5 mg DAILY [facility] Administration Heparin Sodium (Porcine) 5,000 units 09/26/18 14:00 09/27/18 05:26 Heparin SC 5,000 units Q8 [facility] Administration Hydralazine HCl 50 mg 09/19/18 12:20 09/27/18 05:26 Apresoline PO 50 mg Q8 [facility] Administration Hydrocortisone 0 gm 09/19/18 10:00 09/26/18 18:07 Anusol-Hc AK 1 applic BID [facility] Administration Lactic Acid 0 gm 09/20/18 10:00 09/26/18 11:49 Lac-Hydrin 12% Lotion (225 G) EXT 1 applic DAILY [facility] Administration Lactulose 20 gm 09/21/18 10:00 09/26/18 09:53 Enulose PO 20 gm DAILY [facility] Administration Metoprolol Succinate 50 mg 09/19/18 10:00 09/27/18 07:59 Toprol Xl PO 50 mg BID [facility] Administration Rosuvastatin Calcium 5 mg 09/18/18 22:00 09/26/18 21:09 Crestor PO 5 mg HS [facility] Administration - Patient Studies Lab Studies: Microbiology Studies 09/24/18 07:56 MRSA Culture (Admit) - Final Nose MRSA NOT DETECTED 09/24/18 13:16 Blood Culture - Preliminary Blood-Venous NO GROWTH AFTER 48 HOURS 09/24/18 13:16 Blood Culture - Preliminary Blood-Venous NO GROWTH AFTER 48 HOURS Lab Studies 09/27/18 09/27/18 09/27/18 Range/Units 07:20 05:46 05:46 WBC 6.4 (4.8-10.8) K/uL RBC 3.75 L (4.40-5.90) Mil/uL Hgb 11.7 L (12.0-18.0) g/dL Hct 35.6 (35.0-51.0) % MCV 94.7 H (80.0-94.0) fL MCH 31.1 H (27.0-31.0) pg MCHC 32.8 L (33.0-37.0) g/dL RDW 15.4 H (11.5-14.5) % Plt Count 176 (130-400) K/uL MPV 8.4 (7.2-11.7) fL Neut % (Auto) 65.3 (50.0-75.0) % Lymph % (Auto) 19.5 L (20.0-40.0) % Irwin % (Auto) 12.2 H (0.0-10.0) % Eos % (Auto) 2.5 (0.0-4.0) % Baso % (Auto) 0.5 (0.0-2.0) % Neut # (Auto) 4.2 (1.8-7.0) K/uL Lymph # (Auto) 1.3 (1.0-4.3) K/uL Irwin # (Auto) 0.8 (0.0-0.8) K/uL Eos # (Auto) 0.2 (0.0-0.7) K/uL Baso # (Auto) 0.0 (0.0-0.2) K/uL Sodium 136 (132-148) mmol/L Potassium 4.6 (3.6-5.2) mmol/L Chloride 99 (98-107) mmol/L Carbon Dioxide 21 L (22-30) mmol/L Anion Gap 20 (10-20) BUN 54 H (9-20) mg/dL Creatinine 10.3 H* (0.8-1.5) mg/dL Est GFR ( Amer) 6 Est GFR (Non-Af Amer) 5 POC Glucose (mg/dL) 182 H (65-110) mg/dL Random Glucose 126 H (75-110) mg/dL Calcium 8.7 (8.6-10.4) mg/dl Phosphorus 6.2 H (2.5-4.5) mg/dL Magnesium 2.4 H (1.6-2.3) mg/dL Total Bilirubin 1.1 (0.2-1.3) mg/dL AST 53 (17-59) U/L ALT 64 (21-72) U/L Alkaline Phosphatase 106 (38-126) U/L Ammonia (9-33) umol/L Total Protein 8.2 (6.3-8.3) g/dL Albumin 4.2 (3.5-5.0) g/dL Globulin 4.0 H (2.2-3.9) gm/dL Albumin/Globulin Ratio 1.1 (1.0-2.1) 09/26/18 09/26/18 09/26/18 Range/Units 22:20 17:50 14:01 WBC (4.8-10.8) K/uL RBC (4.40-5.90) Mil/uL Hgb (12.0-18.0) g/dL Hct (35.0-51.0) % MCV (80.0-94.0) fL MCH (27.0-31.0) pg MCHC (33.0-37.0) g/dL RDW (11.5-14.5) % Plt Count (130-400) K/uL MPV (7.2-11.7) fL Neut % (Auto) (50.0-75.0) % Lymph % (Auto) (20.0-40.0) % Irwin % (Auto) (0.0-10.0) % Eos % (Auto) (0.0-4.0) % Baso % (Auto) (0.0-2.0) % Neut # (Auto) (1.8-7.0) K/uL Lymph # (Auto) (1.0-4.3) K/uL Irwin # (Auto) (0.0-0.8) K/uL Eos # (Auto) (0.0-0.7) K/uL Baso # (Auto) (0.0-0.2) K/uL Sodium (132-148) mmol/L Potassium (3.6-5.2) mmol/L Chloride (98-107) mmol/L Carbon Dioxide (22-30) mmol/L Anion Gap (10-20) BUN (9-20) mg/dL Creatinine (0.8-1.5) mg/dL Est GFR ( Amer) Est GFR (Non-Af Amer) POC Glucose (mg/dL) 247 H 125 H (65-110) mg/dL Random Glucose (75-110) mg/dL Calcium (8.6-10.4) mg/dl Phosphorus (2.5-4.5) mg/dL Magnesium (1.6-2.3) mg/dL Total Bilirubin (0.2-1.3) mg/dL AST (17-59) U/L ALT (21-72) U/L Alkaline Phosphatase (38-126) U/L Ammonia < 9 L (9-33) umol/L Total Protein (6.3-8.3) g/dL Albumin (3.5-5.0) g/dL Globulin (2.2-3.9) gm/dL Albumin/Globulin Ratio (1.0-2.1) 09/26/18 09/26/18 09/26/18 Range/Units 12:24 09:30 09:30 WBC 7.8 (4.8-10.8) K/uL RBC 3.77 L (4.40-5.90) Mil/uL Hgb 11.7 L (12.0-18.0) g/dL Hct 35.7 (35.0-51.0) % MCV 94.9 H (80.0-94.0) fL MCH 31.1 H (27.0-31.0) pg MCHC 32.7 L (33.0-37.0) g/dL RDW 14.8 H (11.5-14.5) % Plt Count 177 (130-400) K/uL MPV 8.7 (7.2-11.7) fL Neut % (Auto) 63.9 (50.0-75.0) % Lymph % (Auto) 21.3 (20.0-40.0) % Irwin % (Auto) 11.7 H (0.0-10.0) % Eos % (Auto) 2.1 (0.0-4.0) % Baso % (Auto) 1.0 (0.0-2.0) % Neut # (Auto) 5.0 (1.8-7.0) K/uL Lymph # (Auto) 1.7 (1.0-4.3) K/uL Irwin # (Auto) 0.9 H (0.0-0.8) K/uL Eos # (Auto) 0.2 (0.0-0.7) K/uL Baso # (Auto) 0.1 (0.0-0.2) K/uL Sodium 139 (132-148) mmol/L Potassium 4.2 (3.6-5.2) mmol/L Chloride 99 (98-107) mmol/L Carbon Dioxide 23 (22-30) mmol/L Anion Gap 22 H (10-20) BUN 39 H (9-20) mg/dL Creatinine 8.6 H* (0.8-1.5) mg/dL Est GFR ( Amer) 7 Est GFR (Non-Af Amer) 6 POC Glucose (mg/dL) 90 (65-110) mg/dL Random Glucose 95 (75-110) mg/dL Calcium 8.8 (8.6-10.4) mg/dl Phosphorus 4.9 H (2.5-4.5) mg/dL Magnesium 2.2 (1.6-2.3) mg/dL Total Bilirubin 1.1 (0.2-1.3) mg/dL AST 73 H (17-59) U/L ALT 76 H D (21-72) U/L Alkaline Phosphatase 111 (38-126) U/L Ammonia (9-33) umol/L Total Protein 8.3 (6.3-8.3) g/dL Albumin 4.2 (3.5-5.0) g/dL Globulin 4.0 H (2.2-3.9) gm/dL Albumin/Globulin Ratio 1.0 (1.0-2.1) Laboratory Results - last 24 hr 09/26/18 09/26/18 09/26/18 09:30 09:30 12:24 WBC 7.8 RBC 3.77 L Hgb 11.7 L Hct 35.7 MCV 94.9 H MCH 31.1 H MCHC 32.7 L RDW 14.8 H Plt Count 177 MPV 8.7 Neut % (Auto) 63.9 Lymph % (Auto) 21.3 Irwin % (Auto) 11.7 H Eos % (Auto) 2.1 Baso % (Auto) 1.0 Neut # (Auto) 5.0 Lymph # (Auto) 1.7 Irwin # (Auto) 0.9 H Eos # (Auto) 0.2 Baso # (Auto) 0.1 Sodium 139 Potassium 4.2 Chloride 99 Carbon Dioxide 23 Anion Gap 22 H BUN 39 H Creatinine 8.6 H* Est GFR ( Amer) 7 Est GFR (Non-Af Amer) 6 POC Glucose (mg/dL) 90 Random Glucose 95 Calcium 8.8 Phosphorus 4.9 H Magnesium 2.2 Total Bilirubin 1.1 AST 73 H ALT 76 H D Alkaline Phosphatase 111 Ammonia Total Protein 8.3 Albumin 4.2 Globulin 4.0 H Albumin/Globulin Ratio 1.0 09/26/18 09/26/18 09/26/18 14:01 17:50 22:20 WBC RBC Hgb Hct MCV MCH MCHC RDW Plt Count MPV Neut % (Auto) Lymph % (Auto) Irwin % (Auto) Eos % (Auto) Baso % (Auto) Neut # (Auto) Lymph # (Auto) Irwin # (Auto) Eos # (Auto) Baso # (Auto) Sodium Potassium Chloride Carbon Dioxide Anion Gap BUN Creatinine Est GFR ( Amer) Est GFR (Non-Af Amer) POC Glucose (mg/dL) 125 H 247 H Random Glucose Calcium Phosphorus Magnesium Total Bilirubin AST ALT Alkaline Phosphatase Ammonia < 9 L Total Protein Albumin Globulin Albumin/Globulin Ratio 09/27/18 09/27/18 09/27/18 05:46 05:46 07:20 WBC 6.4 RBC 3.75 L Hgb 11.7 L Hct 35.6 MCV 94.7 H MCH 31.1 H MCHC 32.8 L RDW 15.4 H Plt Count 176 MPV 8.4 Neut % (Auto) 65.3 Lymph % (Auto) 19.5 L Irwin % (Auto) 12.2 H Eos % (Auto) 2.5 Baso % (Auto) 0.5 Neut # (Auto) 4.2 Lymph # (Auto) 1.3 Irwin # (Auto) 0.8 Eos # (Auto) 0.2 Baso # (Auto) 0.0 Sodium 136 Potassium 4.6 Chloride 99 Carbon Dioxide 21 L Anion Gap 20 BUN 54 H Creatinine 10.3 H* Est GFR ( Amer) 6 Est GFR (Non-Af Amer) 5 POC Glucose (mg/dL) 182 H Random Glucose 126 H Calcium 8.7 Phosphorus 6.2 H Magnesium 2.4 H Total Bilirubin 1.1 AST 53 ALT 64 Alkaline Phosphatase 106 Ammonia Total Protein 8.2 Albumin 4.2 Globulin 4.0 H Albumin/Globulin Ratio 1.1 Fingerstick Blood Sugar Results: 247 Review of Systems - Review of Systems All systems: reviewed and no additional remarkable complaints except Review of Systems: as per HPI Critical Care Progress Note - Nutrition Nutrition: Nutrition Category Date Time Status Renal Diet [DIET] Diets 09/26/18 Lunch Active Assessment/Plan - Assessment and Plan (Free Text) Assessment: 73 yo M with PMHx of HTN, HLD, ESRD on HD TTS, admitted 09/18 for lower abdominal pain and UTI, started on cefepime/amikacin. [employer] called yesterday s/p new onset AMS, CT head negative. 24 hr EEG completed, reviewed by Neurology, appears to be triphasics and sharp waves on his EEG that at times seem to coalesce and evolve into small, discrete,short lived seizures. Patient more alert, oriented, no new seizure-like activity noted. Hemodynamically stable for downgrade this morning. Plan: Neuro: Focal seizure, AMS Likely 2/2 toxic metabolic encephalopathy -given 5 mg ativan total -CT head: no acute findings -video EEG: appears to be triphasics and sharp waves on his EEG that at times seem to coalesce and evolve into small, discrete,short lived seizures -Neuro recs (Dr. Conrad) appreciated: received loading dose of Valproic Acid 1 gm IV, began Valproic Acid 500 mg IV BID. -fall precautions -patient more alert, oriented. No new seizure-like activity noted. Medically stable for downgrade. CV: HTN -Hydralazine 50mg PO q8 -Metoprolol 50 mg PO BID Peripheral vascular disease -ASA, statin Pulm: -not in acute distress -CXR (09/24): no acute findings Heme Chronic anemia 2/2 renal disease -procrit 10,000 units MWF -ferrous sulfate 325 mg PO daily Renal: ESRD -pt on HD TTR -Nephrology recs (Dr. Thakkar) appreciated: HD session done yesterday -phoslo, calcitriol ID UTI -Urine cx (09/19): klebsiella -amikacin/cefepime dc'd -f/u ID recs PPx, Diet, Disposition -GI ppx: pepcid -Diet: NPO Case discussed with Dr. Lasha Mills DO, PGY-1
--- NOTE | 2018-09-27 08:57 | PN ---
DATE: 09/27/2018 SUBJECTIVE: The patient, Valentino Richards, is more alert. The patient is on seizure medication. According to Neurology, he did have focal seizure. The patient is more alert. He is afebrile. No shortness of breath. PHYSICAL EXAMINATION: GENERAL: The patient is more alert, oriented. VITAL SIGNS: Blood pressure 123/69, pulse 75, respiratory rate 18, temperature 98. LUNGS: Clear. CARDIOVASCULAR SYSTEM: S1, S2 plus. S3 positive. ABDOMEN: Soft. ASSESSMENT: 1. Seizure, new onset. 2. Hypertension plus congestive heart failure. 3. Chronic kidney disease, on hemodialysis. 4. Pyelonephritis. The patient has Klebsiella, which is watson sensitive, on antibiotics. PLAN: Monitor the patient. ____ antibiotics. ID followup. Neurology followup. Emilio Israel MD
[2018-09-27] MEDS ORDERED: Labetalol 5mg/ml (4ml) IVP STA ×2 (09:36→09:51)
[2018-09-27] MEDS: Ammonium Lactate 12% Lotion (225 g) EXT SCH (09:58)
[2018-09-27] MEDS ORDERED: Dextrose 50% SYRINGE Inj (50 ml) IV PRN (10:01)
[2018-09-27] MEDS ORDERED: Glucagon Recombinant 1 mg Inj IM PRN (10:01)
[2018-09-27] MEDS: Hydrocortisone 2.5% Rectal Cream(30 gm) PR SCH ×2 (10:13→17:56)
[2018-09-27] MEDS: (Novolin R) Insulin Human Regular 100 units/ml vial SC SCH ×3 (11:56→21:26)
--- NOTE | 2018-09-27 12:53 | CP.PCM.PN ---
Subjective - Date & Time of Evaluation Date of Evaluation: 09/27/18 Time of Evaluation: 12:53 - Subjective Subjective: pt is seen and examined by me in the icu, pt is feeling better, no sob, still confused, does not remember and date Objective - Vital Signs/Intake and Output Vital Signs (last 24 hours): Temp Pulse Resp BP Pulse Ox 98 F 78 14 137/43 L 97 09/27/18 08:00 09/27/18 11:23 09/27/18 11:23 09/27/18 11:23 09/27/18 11:23 Intake and Output: 09/27/18 09/27/18 06:59 18:59 Intake Total 100 320 Balance 100 320 - Medications Medications: Current Medications Acetaminophen (Tylenol 325mg Tab) 650 mg PO Q6 PRN PRN Reason: Fever >100.4 F Last Admin: 09/23/18 11:39 Dose: 650 mg Aspirin (Aspirin) 325 mg PO DAILY [facility] Last Admin: 09/27/18 09:58 Dose: 325 mg Calcitriol (Rocaltrol) 0.25 mcg PO DAILY [facility] Last Admin: 09/27/18 09:57 Dose: 0.25 mcg Calcium Acetate (Phoslo) 667 mg PO TID [facility] Last Admin: 09/27/18 09:58 Dose: 667 mg Dextrose (Dextrose 50% Inj) 0 ml IV STAT PRN; Protocol PRN Reason: Hypoglycemia Protocol Dextrose (Glutose 15) 0 gm PO ONCE PRN; Protocol PRN Reason: Hypoglycemia Protocol Epoetin Omi (Procrit) 10,000 unit IV MWF [facility] Last Admin: 09/25/18 12:57 Dose: 10,000 unit Famotidine (Pepcid) 20 mg PO DAILY [facility] Last Admin: 09/27/18 09:58 Dose: 20 mg Ferrous Sulfate (Feosol) 325 mg PO DAILY [facility] Last Admin: 09/27/18 09:58 Dose: 325 mg Finasteride (Proscar) 5 mg PO DAILY [facility] Last Admin: 09/27/18 09:58 Dose: 5 mg Glucagon (Glucagen Diagnostic Kit) 0 mg IM STAT PRN; Protocol PRN Reason: Hypoglycemia Protocol Heparin Sodium (Porcine) (Heparin) 5,000 units SC Q8 [facility] Last Admin: 09/27/18 05:26 Dose: 5,000 units Hydralazine HCl (Apresoline) 50 mg PO Q8 [facility] Last Admin: 09/27/18 05:26 Dose: 50 mg Hydrocortisone (Anusol-Hc) 0 gm [place] BID [facility] Last Admin: 09/27/18 10:13 Dose: 1 applic Dextrose (Dextrose 5% In Water 1000 Ml) 1,000 mls @ 0 mls/hr IV .Q0M PRN; Protocol PRN Reason: Hypoglycemia Protocol Insulin Human Regular (Novolin R) 0 unit SC ACHS [facility]; Protocol Last Admin: 09/27/18 11:56 Dose: 3 u Lactic Acid (Lac-Hydrin 12% Lotion (225 G)) 0 gm EXT DAILY [facility] Last Admin: 09/27/18 09:58 Dose: 1 applic Lactulose (Enulose) 20 gm PO DAILY [facility] Last Admin: 09/27/18 10:13 Dose: Not Given Metoprolol Succinate (Toprol Xl) 50 mg PO BID [facility] Last Admin: 09/27/18 10:14 Dose: Not Given Rosuvastatin Calcium (Crestor) 5 mg PO HS [facility] Last Admin: 09/26/18 21:09 Dose: 5 mg - Labs Labs: 09/27/18 05:46 09/27/18 05:46 PT 12.6 SECONDS (9.7-12.2) H 09/24/18 13:35 INR 1.2 09/24/18 13:35 APTT 30 SECONDS (21-34) 09/24/18 13:35 - Constitutional Appears: Well, Non-toxic, No Acute Distress - Head Exam Head Exam: ATRAUMATIC, NORMAL INSPECTION - Eye Exam Eye Exam: EOMI, Normal appearance, PERRL Pupil Exam: NORMAL ACCOMODATION - ENT Exam ENT Exam: Mucous Membranes Moist - Neck Exam Neck Exam: Full ROM, Normal Inspection - Respiratory Exam Respiratory Exam: Clear to Ausculation Bilateral, NORMAL BREATHING PATTERN - Cardiovascular Exam Cardiovascular Exam: REGULAR RHYTHM, +S1, +S2 - GI/Abdominal Exam GI & Abdominal Exam: Distended, Soft, Normal Bowel Sounds - Extremities Exam Additional comments: s/p left bka, dressing to rt leg - Neurological Exam Neurological Exam: Alert, Awake, CN II-XII Intact Additional comments: confused oriented x1-2 Assessment and Plan - Assessment and Plan (Free Text) Assessment: 73 yo AA male with pmh/o htn, dm esrd, pvd, s/p left bka, s/p pacemaker, diverticulosis, s/p diverticulitis, anemia, s/p c.diff , bph was admitted with lower abd. pain, dysuria, frequency, low garde fever 1. ESRD 2. HTN 3. DM 4. UTI 5. AMS, most likely sec to metabolic encephalopathy sec to drug, Maxipime pt is reciving 1gm q 12 hrs (renal dose 500 mg q2 4 hrs), r/o seizers urine c/s is + for GNR, identified as K. pneumonia blood c/s, no growth so far d/c Maxipine c/w current anti HTN meds low na, low K+diet c/w po4 binders for HD today, uf goal is 2- 2.5 lit f/u with neurology, started on depakene ? carlos
--- NOTE | 2018-09-27 13:20 | CP.PCM.PN ---
<Magnolia Gregory - Last Filed: 09/27/18 13:29> Subjective - Date & Time of Evaluation Date of Evaluation: 09/27/18 Time of Evaluation: 11:35 - Subjective Subjective: Neurology Consultation Follow-Up Note: Mr. Richards was evaluated today in the ICU. Patient had a continuous video EEG done on Tuesday that was read as abnormal by Dr. Burk. During exam today, Mr. Richards is pleasant, awake, alert, oriented x3, which is a stable improvement compared to Tuesday. He still answers some questions appropriately during exam but does not follow all commands. Denies headache, dizziness, visual changes, chest pain, shortness of breath, nausea/vomiting, twitching. Per nursing staff, no acute events last night. Physical exam limited as the patient could not follow some of my commands. During exam Mr. Richards did not exhibit any facial or right arm twitching as he did upon arrival to the hospital. Objective - Vital Signs/Intake and Output Vital Signs (last 24 hours): Temp Pulse Resp BP Pulse Ox 98 F 78 14 137/43 L 97 09/27/18 08:00 09/27/18 11:23 09/27/18 11:23 09/27/18 11:23 09/27/18 11:23 Intake and Output: 09/27/18 09/27/18 06:59 18:59 Intake Total 100 320 Balance 100 320 - Medications Medications: Current Medications Acetaminophen (Tylenol 325mg Tab) 650 mg PO Q6 PRN PRN Reason: Fever >100.4 F Last Admin: 09/23/18 11:39 Dose: 650 mg Aspirin (Aspirin) 325 mg PO DAILY [facility] Last Admin: 09/27/18 09:58 Dose: 325 mg Calcitriol (Rocaltrol) 0.25 mcg PO DAILY [facility] Last Admin: 09/27/18 09:57 Dose: 0.25 mcg Calcium Acetate (Phoslo) 667 mg PO TID [facility] Last Admin: 09/27/18 09:58 Dose: 667 mg Dextrose (Dextrose 50% Inj) 0 ml IV STAT PRN; Protocol PRN Reason: Hypoglycemia Protocol Dextrose (Glutose 15) 0 gm PO ONCE PRN; Protocol PRN Reason: Hypoglycemia Protocol Epoetin Omi (Procrit) 10,000 unit IV MWF [facility] Last Admin: 09/25/18 12:57 Dose: 10,000 unit Famotidine (Pepcid) 20 mg PO DAILY [facility] Last Admin: 09/27/18 09:58 Dose: 20 mg Ferrous Sulfate (Feosol) 325 mg PO DAILY [facility] Last Admin: 09/27/18 09:58 Dose: 325 mg Finasteride (Proscar) 5 mg PO DAILY [facility] Last Admin: 09/27/18 09:58 Dose: 5 mg Glucagon (Glucagen Diagnostic Kit) 0 mg IM STAT PRN; Protocol PRN Reason: Hypoglycemia Protocol Heparin Sodium (Porcine) (Heparin) 5,000 units SC Q8 [facility] Last Admin: 09/27/18 05:26 Dose: 5,000 units Hydralazine HCl (Apresoline) 50 mg PO Q8 [facility] Last Admin: 09/27/18 05:26 Dose: 50 mg Hydrocortisone (Anusol-Hc) 0 gm AL BID [facility] Last Admin: 09/27/18 10:13 Dose: 1 applic Dextrose (Dextrose 5% In Water 1000 Ml) 1,000 mls @ 0 mls/hr IV .Q0M PRN; Protocol PRN Reason: Hypoglycemia Protocol Insulin Human Regular (Novolin R) 0 unit SC ACHS [facility]; Protocol Last Admin: 09/27/18 11:56 Dose: 3 u Lactic Acid (Lac-Hydrin 12% Lotion (225 G)) 0 gm EXT DAILY [facility] Last Admin: 09/27/18 09:58 Dose: 1 applic Lactulose (Enulose) 20 gm PO DAILY [facility] Last Admin: 09/27/18 10:13 Dose: Not Given Metoprolol Succinate (Toprol Xl) 50 mg PO BID [facility] Last Admin: 09/27/18 10:14 Dose: Not Given Rosuvastatin Calcium (Crestor) 5 mg PO HS [facility] Last Admin: 09/26/18 21:09 Dose: 5 mg - Labs Labs: 09/27/18 05:46 09/27/18 05:46 PT 12.6 SECONDS (9.7-12.2) H 09/24/18 13:35 INR 1.2 09/24/18 13:35 APTT 30 SECONDS (21-34) 09/24/18 13:35 - Constitutional Appears: Well, Non-toxic, No Acute Distress - Head Exam Head Exam: ATRAUMATIC, NORMAL INSPECTION, NORMOCEPHALIC - Eye Exam Eye Exam: EOMI, Normal appearance, PERRL - ENT Exam ENT Exam: Mucous Membranes Moist - Neck Exam Neck Exam: Full ROM - Respiratory Exam Respiratory Exam: NORMAL BREATHING PATTERN - Extremities Exam Extremities Exam: Full ROM, Normal Inspection Additional comments: left bka (not new); pt has prosthesis at bedside. - Neurological Exam Neurological Exam: Alert, Awake, Oriented x3 Additional comments: Patient able to move all extremities independently, however, I could not assess fine motor or strength to extremities as patient would not follow commands to do so. Sensation is equal and intact bilaterally. Right arm and right facial twitching resolved. Patient pleasantly forgetful. He still could not name 10 animals or 10 fruits when asked to do so; laughed when asked to. - Psychiatric Exam Psychiatric exam: Normal Affect, Normal Mood - Skin Skin Exam: Normal Color Assessment and Plan (1) Focal motor seizure Assessment & Plan: -Mr. Richards' EEG showed seizure activity (read by Dr. Burk) on 09/25/18. -As a result of the abnormal EEG, Mr. Richards received loading dose of Valproic Acid 1 gm IV on 09/25/18 and we started Valproic Acid 500 mg IV BID yesterday morning, which he has been tolerating. -We will continue Valproic Acid 500 mg PO BID (please note switching pt to PO as of today). -He may be downgraded from ICU today. -Continue fall precautions. -Please notify neuro team of any acute changes in patient's condition. Case discussed with Dr. Burk. Status: Acute <WmGautami - Last Filed: 09/29/18 00:55> Objective - Vital Signs/Intake and Output Vital Signs (last 24 hours): Temp Pulse Resp BP Pulse Ox 98.2 F 87 20 114/64 95 09/28/18 15:00 09/28/18 16:00 09/28/18 15:00 09/28/18 15:00 09/28/18 15:00 - Medications Medications: Current Medications Acetaminophen (Tylenol 325mg Tab) 650 mg PO Q6 PRN PRN Reason: Fever >100.4 F Last Admin: 09/23/18 11:39 Dose: 650 mg Aspirin (Aspirin) 325 mg PO DAILY [facility] Last Admin: 09/28/18 10:17 Dose: 325 mg Calcitriol (Rocaltrol) 0.25 mcg PO DAILY [facility] Last Admin: 09/28/18 11:07 Dose: Not Given Dextrose (Dextrose 50% Inj) 0 ml IV STAT PRN; Protocol PRN Reason: Hypoglycemia Protocol Dextrose (Glutose 15) 0 gm PO ONCE PRN; Protocol PRN Reason: Hypoglycemia Protocol Epoetin Omi (Procrit) 10,000 unit IV MWF [facility] Last Admin: 09/27/18 15:50 Dose: 10,000 unit Famotidine (Pepcid) 20 mg PO DAILY [facility] Last Admin: 09/28/18 10:17 Dose: 20 mg Finasteride (Proscar) 5 mg PO DAILY [facility] Last Admin: 09/28/18 11:07 Dose: Not Given Glucagon (Glucagen Diagnostic Kit) 0 mg IM STAT PRN; Protocol PRN Reason: Hypoglycemia Protocol Heparin Sodium (Porcine) (Heparin) 5,000 units SC Q8 [facility] Last Admin: 09/28/18 21:33 Dose: 5,000 units Hydralazine HCl (Apresoline) 50 mg PO Q8 [facility] Last Admin: 09/28/18 21:33 Dose: 50 mg Hydrocortisone (Anusol-Hc) 0 gm AL BID [facility] Last Admin: 09/28/18 19:06 Dose: Not Given Dextrose (Dextrose 5% In Water 1000 Ml) 1,000 mls @ 0 mls/hr IV .Q0M PRN; Protocol PRN Reason: Hypoglycemia Protocol Insulin Human Regular (Novolin R) 0 unit SC ACHS [facility]; Protocol Last Admin: 09/28/18 18:14 Dose: Not Given Lactic Acid (Lac-Hydrin 12% Lotion (225 G)) 0 gm EXT DAILY [facility] Last Admin: 09/28/18 10:19 Dose: 1 applic Lactulose (Enulose) 20 gm PO DAILY [facility] Last Admin: 09/28/18 10:17 Dose: 20 gm Metoprolol Succinate (Toprol Xl) 50 mg PO BID [facility] Last Admin: 09/28/18 18:29 Dose: 50 mg Rosuvastatin Calcium (Crestor) 5 mg PO HS [facility] Last Admin: 09/28/18 21:33 Dose: 5 mg Sevelamer Carbonate (Renvela) 0.8 gm PO TIDCC [facility] Valproate Sodium (Depakene Cap) 750 mg PO BID [facility] Vitamin B Complex/Vit C/Folic Acid (Nephro-Benoit) 1 tab PO 0800 [facility] - Labs Labs: 09/28/18 08:58 09/28/18 08:58 PT 12.6 SECONDS (9.7-12.2) H 09/24/18 13:35 INR 1.2 09/24/18 13:35 APTT 30 SECONDS (21-34) 09/24/18 13:35 Assessment and Plan - Assessment and Plan (Free Text) Assessment: I agree with assessment and plan. I will add the following : EEG: shows triphasic waves that occasionally become rhythmic and may be epileptiform in nature. THere were no clear epileptiform discharges. Thank you Dr. Burk Neurology
[2018-09-27] MEDS: Epoetin Alfa 10,000 unit/ml Dialysis IV SCH (15:50)
--- NOTE | 2018-09-27 17:55 | CARD ---
APPROVED REPORT Date of service: 09/24/2018 EKG Measurement Heart [id number] [id number] <Conclusion> Sinus rhythm with 1st degree AV block Possible Left atrial enlargement Left axis deviation Right bundle branch block Anterior infarct, age undetermined Abnormal ECG
--- NOTE | 2018-09-27 18:14 | PN ---
DATE: 09/27/2018 SUBJECTIVE: The patient is confused to place. He denies any chest pain. No reported ventricular arrhythmia. PHYSICAL EXAMINATION: VITAL SIGNS: Blood pressure 137/43, heart rate 78, temperature 98, and respirations 19. HEENT: Normocephalic. CHEST: Clear. HEART: S1 and S2 regular. EXTREMITIES: Left below-knee amputation. LABORATORY DATA: SMA-7; sodium 136, potassium 4.6, chloride 99, CO2 of 21, glucose 126, BUN 64, creatinine 10.3. Today's hemoglobin and hematocrit 11.7 and 35.6. White count and platelet count are within normal limit. ASSESSMENT: 1. Altered mental status. 2. Coronary artery disease with history of occlusion of the right coronary artery. 3. Peripheral vascular disease status post left below-knee amputation. 4. End-stage renal disease, on hemodialysis. 5. Gram-negative urinary tract infection with Klebsiella pneumonia. RECOMMENDATIONS: Continue hydralazine 50 mg every 8 hours, Crestor 5 mg once a day, Feosol one tablet daily, subcutaneous heparin 5000 units every 8 hours, Pepcid 20 mg once a day, PhosLo one tablet t.i.d., and Toprol XL 50 mg twice a day. Roberto Mayer MD
--- NOTE | 2018-09-27 22:33 | CP.PCM.PN ---
Subjective - Subjective Subjective: dictated Objective - Vital Signs/Intake and Output Vital Signs (last 24 hours): Temp Pulse Resp BP Pulse Ox 98.3 F 92 H 16 120/61 97 09/27/18 20:00 09/27/18 20:00 09/27/18 20:00 09/27/18 20:00 09/27/18 20:00 Intake and Output: 09/27/18 09/28/18 18:59 06:59 Intake Total 800 0 Output Total 2100 Balance -1300 0 - Medications Medications: Current Medications Acetaminophen (Tylenol 325mg Tab) 650 mg PO Q6 PRN PRN Reason: Fever >100.4 F Last Admin: 09/23/18 11:39 Dose: 650 mg Aspirin (Aspirin) 325 mg PO DAILY [facility] Last Admin: 09/27/18 09:58 Dose: 325 mg Calcitriol (Rocaltrol) 0.25 mcg PO DAILY [facility] Last Admin: 09/27/18 09:57 Dose: 0.25 mcg Calcium Acetate (Phoslo) 667 mg PO TID [facility] Last Admin: 09/27/18 17:54 Dose: 667 mg Dextrose (Dextrose 50% Inj) 0 ml IV STAT PRN; Protocol PRN Reason: Hypoglycemia Protocol Dextrose (Glutose 15) 0 gm PO ONCE PRN; Protocol PRN Reason: Hypoglycemia Protocol Epoetin Omi (Procrit) 10,000 unit IV MWF [facility] Last Admin: 09/27/18 15:50 Dose: 10,000 unit Famotidine (Pepcid) 20 mg PO DAILY [facility] Last Admin: 09/27/18 09:58 Dose: 20 mg Ferrous Sulfate (Feosol) 325 mg PO DAILY [facility] Last Admin: 09/27/18 09:58 Dose: 325 mg Finasteride (Proscar) 5 mg PO DAILY [facility] Last Admin: 09/27/18 09:58 Dose: 5 mg Glucagon (Glucagen Diagnostic Kit) 0 mg IM STAT PRN; Protocol PRN Reason: Hypoglycemia Protocol Heparin Sodium (Porcine) (Heparin) 5,000 units SC Q8 [facility] Last Admin: 09/27/18 21:34 Dose: 5,000 units Hydralazine HCl (Apresoline) 50 mg PO Q8 [facility] Last Admin: 09/27/18 21:34 Dose: Not Given Hydrocortisone (Anusol-Hc) 0 gm GA BID [facility] Last Admin: 09/27/18 17:56 Dose: 1 applic Dextrose (Dextrose 5% In Water 1000 Ml) 1,000 mls @ 0 mls/hr IV .Q0M PRN; Protocol PRN Reason: Hypoglycemia Protocol Insulin Human Regular (Novolin R) 0 unit SC ACHS [facility]; Protocol Last Admin: 09/27/18 21:26 Dose: Not Given Lactic Acid (Lac-Hydrin 12% Lotion (225 G)) 0 gm EXT DAILY [facility] Last Admin: 09/27/18 09:58 Dose: 1 applic Lactulose (Enulose) 20 gm PO DAILY [facility] Last Admin: 09/27/18 10:13 Dose: Not Given Metoprolol Succinate (Toprol Xl) 50 mg PO BID [facility] Last Admin: 09/27/18 17:57 Dose: Not Given Rosuvastatin Calcium (Crestor) 5 mg PO HS [facility] Last Admin: 09/27/18 21:33 Dose: 5 mg Valproate Sodium (Depakene Cap) 500 mg PO BID [facility] Last Admin: 09/27/18 17:54 Dose: 500 mg - Labs Labs: 09/27/18 05:46 09/27/18 05:46 PT 12.6 SECONDS (9.7-12.2) H 09/24/18 13:35 INR 1.2 09/24/18 13:35 APTT 30 SECONDS (21-34) 09/24/18 13:35
--- NOTE | 2018-09-27 22:42 | CP.PCM.PN ---
Subjective - Date & Time of Evaluation Date of Evaluation: 09/27/18 Time of Evaluation: 22:42 - Subjective Subjective: CHIEF COMPLAINTS TODAY : Patient seen in ICU today.09/27/18 SEEN ON HD TODAY afebrile ,vss AWAKE ,RESPONSIVE SOMETIMES DOES NOT F/U COMMANDS. NO TWITCHINGS NOTED ROS. HEENT : N. Resp : mild cough, no wheezing ,pleuritic CP ,or hemoptysis Cardio : No anginal CP, PND, orthopnea, palpitation GI : NO n/v ,diarrhea or GI bleeding . 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 moves all extremities. Presently no jerking movements noted. Musculoskel : No joint swelling , Derm : No rash Psych : Normal affect. Ext : No swelling ,calf pain PE. Pt. is AWAKE, in no distress. V.S As noted in the chart Head ,ear nose,throat and eyes : Normal. Neck : Supple with normal carotids. Lungs: Clear air entry. Heart : S1 & S2 normal with S4. No murmur. Abd :LOWER ABDOMEN -ve tenderness ,with normal bowel sounds. Neuro : Moves all ext. LEFT BKA, RT LOWER EXTREMITY WITH A HEALING LACERATION, +VE DRESSING IN PLACE Ext : No edema with intact pulses.Non tender calves Derm : No rashes or decubitus ulcer. LABS/RADIOLOGY: 24 HR EEG -READ BY ABNORMAL-EPILEPTIC ACTIVITY NOTED [id number]/27/18 Repeat blood cultures-ve growth to date. ASSESSMENT. ALTERED MENTAL STATUS -IMPROVING- SEIZURE DISORDER UROSEPSIS KLEIBSIELLA-PNEUMONIAE +VE GALLSTONES/FATTY LIVER PVD /LT. BKA. ESRD ON HD TTS NOW MWF CAD. /PLAN : PER NEUROLOGY PT STARTED ON VALPROIC ACID HOLD OFF ANTIBIOTICS FOR NOW CONSIDER F/U UP BY NEUROLOGY IN 3 MONTHS TO BE REEVALUATED BY 24-HOUR EEG FOR SEIZURE DISORDER, IT MAY BE RELATED TO CEFEPIME HIGH DOSES WHICH CAN PRECIPITATE CEREBRAL DYSFUNCTION. PER PMD/NEUROLOGY. OBSERVE FEVER CURVE OFF ANTIBIOTICS. Objective - Vital Signs/Intake and Output Vital Signs (last 24 hours): Temp Pulse Resp BP Pulse Ox 98.3 F 92 H 16 120/61 97 09/27/18 20:00 09/27/18 20:00 09/27/18 20:00 09/27/18 20:00 09/27/18 20:00 Intake and Output: 11/28/18 11/29/18 18:59 06:59 Intake Total 800 0 Output Total 2100 Balance -1300 0 - Medications Medications: Current Medications Acetaminophen (Tylenol 325mg Tab) 650 mg PO Q6 PRN PRN Reason: Fever >100.4 F Last Admin: 09/23/18 11:39 Dose: 650 mg Aspirin (Aspirin) 325 mg PO DAILY [facility] Last Admin: 09/27/18 09:58 Dose: 325 mg Calcitriol (Rocaltrol) 0.25 mcg PO DAILY [facility] Last Admin: 09/27/18 09:57 Dose: 0.25 mcg Calcium Acetate (Phoslo) 667 mg PO TID [facility] Last Admin: 09/27/18 17:54 Dose: 667 mg Dextrose (Dextrose 50% Inj) 0 ml IV STAT PRN; Protocol PRN Reason: Hypoglycemia Protocol Dextrose (Glutose 15) 0 gm PO ONCE PRN; Protocol PRN Reason: Hypoglycemia Protocol Epoetin Omi (Procrit) 10,000 unit IV MWF [facility] Last Admin: 09/27/18 15:50 Dose: 10,000 unit Famotidine (Pepcid) 20 mg PO DAILY [facility] Last Admin: 09/27/18 09:58 Dose: 20 mg Ferrous Sulfate (Feosol) 325 mg PO DAILY [facility] Last Admin: 09/27/18 09:58 Dose: 325 mg Finasteride (Proscar) 5 mg PO DAILY [facility] Last Admin: 09/27/18 09:58 Dose: 5 mg Glucagon (Glucagen Diagnostic Kit) 0 mg IM STAT PRN; Protocol PRN Reason: Hypoglycemia Protocol Heparin Sodium (Porcine) (Heparin) 5,000 units SC Q8 [facility] Last Admin: 09/27/18 21:34 Dose: 5,000 units Hydralazine HCl (Apresoline) 50 mg PO Q8 [facility] Last Admin: 09/27/18 21:34 Dose: Not Given Hydrocortisone (Anusol-Hc) 0 gm [place] BID [facility] Last Admin: 09/27/18 17:56 Dose: 1 applic Dextrose (Dextrose 5% In Water 1000 Ml) 1,000 mls @ 0 mls/hr IV .Q0M PRN; Protocol PRN Reason: Hypoglycemia Protocol Insulin Human Regular (Novolin R) 0 unit SC ACHS [facility]; Protocol Last Admin: 09/27/18 21:26 Dose: Not Given Lactic Acid (Lac-Hydrin 12% Lotion (225 G)) 0 gm EXT DAILY [facility] Last Admin: 09/27/18 09:58 Dose: 1 applic Lactulose (Enulose) 20 gm PO DAILY [facility] Last Admin: 09/27/18 10:13 Dose: Not Given Metoprolol Succinate (Toprol Xl) 50 mg PO BID [facility] Last Admin: 09/27/18 17:57 Dose: Not Given Rosuvastatin Calcium (Crestor) 5 mg PO HS [facility] Last Admin: 09/27/18 21:33 Dose: 5 mg Valproate Sodium (Depakene Cap) 500 mg PO BID [facility] Last Admin: 09/27/18 17:54 Dose: 500 mg - Labs Labs: 09/27/18 05:46 09/27/18 05:46 PT 12.6 SECONDS (9.7-12.2) H 09/24/18 13:35 INR 1.2 09/24/18 13:35 APTT 30 SECONDS (21-34) 09/24/18 13:35 Assessment and Plan (1) Abdominal pain Status: Acute (2) Fever Status: Acute (3) ESRD (end stage renal disease) on dialysis Status: Acute (4) Peripheral vascular disease Status: Acute (5) Diverticulitis Status: Acute
--- NOTE | 2018-09-28 03:15 | PN ---
DATE: 09/27/2018 SUBJECTIVE: Valentino Richards is more alert, seizure free. No fever. No chills. He is coherent. He is talking. His mental status is improved. PHYSICAL EXAMINATION: VITAL SIGNS: Blood pressure 120/61, pulse 92, respiratory rate 20, temperature 98.3. LUNGS: Bilaterally clear. No rales. No rhonchi. CARDIOVASCULAR SYSTEM: S1, S2 regular. ABDOMEN: Soft. Nontender. Bowel sounds are positive. ASSESSMENT: 1. Chronic kidney disease, on hemodialysis. 2. Type 2 diabetes. 3. Hypertension. 4. Acute pyelonephritis. 5. Seizure disorder from possibly Maxipime, meropenem and the patient is right now afebrile. WBC . Sugars are down, and he is seizure free. Continue current medication. Emilio Israel MD
[2018-09-28 09:25] LABS: BASO % 0.4 % (0.0-2.0); EOS # 0.2 K/uL (0.0-0.7); EOS % 2.3 % (0.0-4.0); HEMOGLOBIN 11.7 g/dL (12.0-18.0); LYMPH # 1.3 K/uL (1.0-4.3); LYMPH % 19.9 % (20.0-40.0); MEAN CORPUSCULAR HEMOGLOBIN 31.3 pg (27.0-31.0); MEAN CORPUSCULAR HGB CONC 32.4 g/dL (33.0-37.0); MEAN PLATELET VOLUME 9.1 fL (7.2-11.7); MONO # 0.7 K/uL (0.0-0.8); MONO % 10.7 % (0.0-10.0); NEUT # 4.5 K/uL (1.8-7.0); NEUT % 66.7 % (50.0-75.0); NRBC % 0.2 % (0.0-2.0); RBC 3.74 Mil/uL (4.40-5.90); RED CELL DISTRIBUTION WIDTH 14.8 % (11.5-14.5); WHITE BLOOD COUNT 6.7 K/uL (4.8-10.8)
--- NOTE | 2018-09-28 09:36 | CP.PCM.PN ---
Subjective - Date & Time of Evaluation Date of Evaluation: 09/28/18 Time of Evaluation: 09:35 - Subjective Subjective: pt is more alert and awake today, no sob, no pain, no nausea, no vomitings + constipation Objective - Vital Signs/Intake and Output Vital Signs (last 24 hours): Temp Pulse Resp BP Pulse Ox 98.4 F 91 H 20 144/63 98 09/28/18 08:31 09/28/18 08:31 09/28/18 08:31 09/28/18 08:31 09/28/18 08:31 Intake and Output: 09/28/18 09/28/18 06:59 18:59 Intake Total 0 Balance 0 - Medications Medications: Current Medications Acetaminophen (Tylenol 325mg Tab) 650 mg PO Q6 PRN PRN Reason: Fever >100.4 F Last Admin: 09/23/18 11:39 Dose: 650 mg Aspirin (Aspirin) 325 mg PO DAILY [facility] Last Admin: 09/27/18 09:58 Dose: 325 mg Calcitriol (Rocaltrol) 0.25 mcg PO DAILY [facility] Last Admin: 09/27/18 09:57 Dose: 0.25 mcg Calcium Acetate (Phoslo) 667 mg PO TID [facility] Last Admin: 09/27/18 17:54 Dose: 667 mg Dextrose (Dextrose 50% Inj) 0 ml IV STAT PRN; Protocol PRN Reason: Hypoglycemia Protocol Dextrose (Glutose 15) 0 gm PO ONCE PRN; Protocol PRN Reason: Hypoglycemia Protocol Epoetin Omi (Procrit) 10,000 unit IV MWF [facility] Last Admin: 09/27/18 15:50 Dose: 10,000 unit Famotidine (Pepcid) 20 mg PO DAILY [facility] Last Admin: 09/27/18 09:58 Dose: 20 mg Ferrous Sulfate (Feosol) 325 mg PO DAILY [facility] Last Admin: 09/27/18 09:58 Dose: 325 mg Finasteride (Proscar) 5 mg PO DAILY [facility] Last Admin: 09/27/18 09:58 Dose: 5 mg Glucagon (Glucagen Diagnostic Kit) 0 mg IM STAT PRN; Protocol PRN Reason: Hypoglycemia Protocol Heparin Sodium (Porcine) (Heparin) 5,000 units SC Q8 [facility] Last Admin: 09/28/18 05:28 Dose: 5,000 units Hydralazine HCl (Apresoline) 50 mg PO Q8 [facility] Last Admin: 09/28/18 05:28 Dose: 50 mg Hydrocortisone (Anusol-Hc) 0 gm MO BID [facility] Last Admin: 09/27/18 17:56 Dose: 1 applic Dextrose (Dextrose 5% In Water 1000 Ml) 1,000 mls @ 0 mls/hr IV .Q0M PRN; Protocol PRN Reason: Hypoglycemia Protocol Insulin Human Regular (Novolin R) 0 unit SC ACHS [facility]; Protocol Last Admin: 09/27/18 21:26 Dose: Not Given Lactic Acid (Lac-Hydrin 12% Lotion (225 G)) 0 gm EXT DAILY [facility] Last Admin: 09/27/18 09:58 Dose: 1 applic Lactulose (Enulose) 20 gm PO DAILY [facility] Last Admin: 09/27/18 10:13 Dose: Not Given Metoprolol Succinate (Toprol Xl) 50 mg PO BID [facility] Last Admin: 09/27/18 17:57 Dose: Not Given Rosuvastatin Calcium (Crestor) 5 mg PO HS [facility] Last Admin: 09/27/18 21:33 Dose: 5 mg Valproate Sodium (Depakene Cap) 500 mg PO BID [facility] Last Admin: 09/27/18 17:54 Dose: 500 mg - Labs Labs: 09/27/18 05:46 09/27/18 05:46 PT 12.6 SECONDS (9.7-12.2) H 09/24/18 13:35 INR 1.2 09/24/18 13:35 APTT 30 SECONDS (21-34) 09/24/18 13:35 - Constitutional Appears: Well, Non-toxic, No Acute Distress - Head Exam Head Exam: ATRAUMATIC, NORMAL INSPECTION, NORMOCEPHALIC - Eye Exam Eye Exam: EOMI, Normal appearance, PERRL Pupil Exam: NORMAL ACCOMODATION - ENT Exam ENT Exam: Mucous Membranes Moist - Neck Exam Neck Exam: Full ROM - Respiratory Exam Respiratory Exam: Clear to Ausculation Bilateral, NORMAL BREATHING PATTERN - Cardiovascular Exam Cardiovascular Exam: REGULAR RHYTHM, +S1, +S2 - GI/Abdominal Exam GI & Abdominal Exam: Distended, Soft, Normal Bowel Sounds - Rectal Exam Rectal Exam: Deferred - Extremities Exam Additional comments: no edema of rt leg, s/p left BKA Assessment and Plan - Assessment and Plan (Free Text) Assessment: 73 yo AA male with pmh/o htn, dm esrd, pvd, s/p left bka, s/p pacemaker, diverticulosis, s/p diverticulitis, anemia, s/p c.diff , bph was admitted with lower abd. pain, dysuria, frequency, low garde fever 1. ESRD 2. HTN 3. DM 4. UTI 5. AMS, most likely sec to metabolic encephalopathy sec to drug, Maxipime pt is reciving 1gm q 12 hrs (renal dose 500 mg q2 4 hrs), r/o seizers urine c/s is + for GNR, identified as K. pneumonia blood c/s, no growth so far d/c Maxipine c/w current anti HTN meds low na, low K+diet c/w po4 binders for HD yesterday, had a uf 2 lit f/u with neurology, started on depakene ? seizers for hd in am, consider bed side physical therapy, KEANU placement
[2018-09-28 09:41] LABS: ALB/GLOB RATIO 1.1 (1.0-2.1); ALBUMIN 4.1 g/dL (3.5-5.0); CALCIUM 8.5 mg/dl (8.6-10.4)
[2018-09-28 09:50] LABS: MEAN CELL VOLUME 96.7 fL (80.0-94.0)
[2018-09-28] MEDS: (Novolin R) Insulin Human Regular 100 units/ml vial SC SCH ×3 (10:17→18:14)
[2018-09-28] MEDS: Hydrocortisone 2.5% Rectal Cream(30 gm) PR SCH ×2 (10:19→19:06)
[2018-09-28] MEDS: Ammonium Lactate 12% Lotion (225 g) EXT SCH (10:19)
[2018-09-28] MEDS: Metoprolol Succinate 50 mg XL Tab PO SCH ×2 (11:08→18:29)
--- NOTE | 2018-09-28 12:50 | CP.PCM.PN ---
Subjective - Date & Time of Evaluation Date of Evaluation: 09/28/18 Time of Evaluation: 11:05 - Subjective Subjective: Neurology Consultation Follow-Up Note: Mr. Richards was evaluated this morning at bedside during breakfast. Today Mr. Richards is pleasant, awake, alert, oriented x3. He is at his baseline mental status based on my many interactions with him during previous hospitalizations at [facility]. He exhibits much improvement in mentation and mood since we have been on this case. Today Mr. Richards answers questions appropriately and follows commands. Denies headache, dizziness, visual changes, chest pain, shortness of breath, nausea/vomiting, twitching. Per nursing staff, no acute events last night; no twitching noted per nursing either; chart reviewed. Objective - Vital Signs/Intake and Output Vital Signs (last 24 hours): Temp Pulse Resp BP Pulse Ox 98.4 F 91 H 20 144/63 98 09/28/18 08:31 09/28/18 08:31 09/28/18 08:31 09/28/18 08:31 09/28/18 08:31 Intake and Output: 09/28/18 09/28/18 06:59 18:59 Intake Total 0 Balance 0 - Medications Medications: Current Medications Acetaminophen (Tylenol 325mg Tab) 650 mg PO Q6 PRN PRN Reason: Fever >100.4 F Last Admin: 09/23/18 11:39 Dose: 650 mg Aspirin (Aspirin) 325 mg PO DAILY [facility] Last Admin: 09/28/18 10:17 Dose: 325 mg Calcitriol (Rocaltrol) 0.25 mcg PO DAILY [facility] Last Admin: 09/28/18 11:07 Dose: Not Given Calcium Acetate (Phoslo) 667 mg PO TID [facility] Last Admin: 09/28/18 10:17 Dose: 667 mg Dextrose (Dextrose 50% Inj) 0 ml IV STAT PRN; Protocol PRN Reason: Hypoglycemia Protocol Dextrose (Glutose 15) 0 gm PO ONCE PRN; Protocol PRN Reason: Hypoglycemia Protocol Epoetin Omi (Procrit) 10,000 unit IV MWF [facility] Last Admin: 09/27/18 15:50 Dose: 10,000 unit Famotidine (Pepcid) 20 mg PO DAILY [facility] Last Admin: 09/28/18 10:17 Dose: 20 mg Ferrous Sulfate (Feosol) 325 mg PO DAILY [facility] Last Admin: 09/28/18 10:18 Dose: 325 mg Finasteride (Proscar) 5 mg PO DAILY [facility] Last Admin: 09/28/18 11:07 Dose: Not Given Glucagon (Glucagen Diagnostic Kit) 0 mg IM STAT PRN; Protocol PRN Reason: Hypoglycemia Protocol Heparin Sodium (Porcine) (Heparin) 5,000 units SC Q8 [facility] Last Admin: 09/28/18 05:28 Dose: 5,000 units Hydralazine HCl (Apresoline) 50 mg PO Q8 [facility] Last Admin: 09/28/18 05:28 Dose: 50 mg Hydrocortisone (Anusol-Hc) 0 gm DE BID [facility] Last Admin: 09/28/18 10:19 Dose: 1 applic Dextrose (Dextrose 5% In Water 1000 Ml) 1,000 mls @ 0 mls/hr IV .Q0M PRN; Protocol PRN Reason: Hypoglycemia Protocol Insulin Human Regular (Novolin R) 0 unit SC ACHS [facility]; Protocol Last Admin: 09/28/18 12:06 Dose: 4 u Lactic Acid (Lac-Hydrin 12% Lotion (225 G)) 0 gm EXT DAILY [facility] Last Admin: 09/28/18 10:19 Dose: 1 applic Lactulose (Enulose) 20 gm PO DAILY [facility] Last Admin: 09/28/18 10:17 Dose: 20 gm Metoprolol Succinate (Toprol Xl) 50 mg PO BID [facility] Last Admin: 09/28/18 11:08 Dose: Not Given Rosuvastatin Calcium (Crestor) 5 mg PO HS [facility] Last Admin: 09/27/18 21:33 Dose: 5 mg Valproate Sodium (Depakene Cap) 500 mg PO BID [facility] Last Admin: 09/28/18 10:18 Dose: 500 mg - Labs Labs: 09/28/18 08:58 09/28/18 08:58 PT 12.6 SECONDS (9.7-12.2) H 09/24/18 13:35 INR 1.2 09/24/18 13:35 APTT 30 SECONDS (21-34) 09/24/18 13:35 - Constitutional Appears: Well, Non-toxic, No Acute Distress - Head Exam Head Exam: ATRAUMATIC, NORMAL INSPECTION, NORMOCEPHALIC - Eye Exam Eye Exam: EOMI, Normal appearance, PERRL Pupil Exam: NORMAL ACCOMODATION, PERRL - ENT Exam ENT Exam: Mucous Membranes Moist - Neck Exam Neck Exam: Full ROM - Respiratory Exam Respiratory Exam: NORMAL BREATHING PATTERN - Extremities Exam Extremities Exam: Full ROM, Normal Inspection Additional comments: left bka; prosthesis at bedside dressing noted to rle - Neurological Exam Neurological Exam: Alert, Awake, CN II-XII Intact, Oriented x3 Neuro motor strength exam: Left Upper Extremity: 5, Right Upper Extremity: 5, Left Lower Extremity: 4 (thigh strength 4/5; please note has bka), Right Lower Extremity: 4 Additional comments: Patient able to move all extremities independently and was able to eat breakfast without assistance. Speech clear and fluid. AAOx3. Sensation is equal and intact bilaterally. No right facial or right arm/hand twitching noted during exam; we have seen a resolution of this since loading him with Valproic Acid. No tremors noted to left extremities or left facial area either. No dysmetria. Strength to BUE equal and 5/5. Strength to BLE 4/5; left bka. No clonus. Reflexes brisk bilaterally. Today he is able to name several fruits and animals. - Psychiatric Exam Psychiatric exam: Normal Affect, Normal Mood - Skin Skin Exam: Normal Color Assessment and Plan (1) Focal motor seizure Assessment & Plan: -Mr. Richards' EEG showed seizure activity (read by Dr. Burk) on 09/25/18. -As a result of the abnormal EEG, Mr. Richards received loading dose of Valproic Acid 1 gm IV on 09/25/18 followed by Valproic Acid 500 mg IV BID. He seems to be doing well with this dose/frequency for now. -PT/rehab -Continue fall precautions. -Please notify neuro team of any acute changes in patient's condition. Case discussed with Dr. Burk. Thank you for allowing us to participate in this patient's care. Status: Acute
[2018-09-28] MEDS ORDERED: Valproate 1,000 MG in Sodium Chloride 0.9% 100 ML IVPB ONE (14:47)
--- NOTE | 2018-09-28 17:26 | PN ---
DATE: 09/28/2018 SUBJECTIVE: The patient is confused to place. He does not appear to be in any apparent distress. PHYSICAL EXAMINATION: VITAL SIGNS: Blood pressure 146/74, heart rate 87, temperature 98.1, respirations 20. HEENT: Normocephalic. CHEST: Minimal rhonchi. HEART: S1 and S2 regular. EXTREMITIES: Left below-knee amputation. LABORATORY DATA: Hemoglobin and hematocrit are 11.7 and 36.1. White count and platelet count are within normal limits. Today's SMA-7: Sodium 140, potassium 3.9, chloride 97, CO2 of 27, glucose 139, BUN 23, and creatinine 7.2. ASSESSMENT: 1. Coronary artery disease with known total occlusion of the right coronary artery. 2. Altered mental status, consider underlying seizure activity. The continuous electroencephalogram monitoring was abnormal as per neurologist, Dr. Burk. 3. End-stage renal disease, on hemodialysis. 4. Uncontrolled diabetes mellitus. 5. Anemia. 6. Hypertension. RECOMMENDATIONS: Continue hydralazine 50 mg every 8 hours, aspirin 325 mg once a day, Crestor 5 mg once a day, Depakene 500 mg twice a day, Feosol one tablet once a day, heparin 5000 units subcutaneously every 8 hours, Proscar 5 mg daily, Toprol XL 50 mg twice a day. Roberto Mayer MD
--- NOTE | 2018-09-28 21:55 | CP.PCM.PN ---
Subjective - Date & Time of Evaluation Date of Evaluation: 09/28/18 Time of Evaluation: 21:55 - Subjective Subjective: CHIEF COMPLAINTS TODAY : PT MOVED TO [id number]. EVENTS NOTED. afebrile ,vss AWAKE ,RESPONSIVE STATES FEELS SLEEPY WITH NEW MEDICATIONS ROS. HEENT : N. Resp : mild cough, no wheezing ,pleuritic CP ,or hemoptysis Cardio : No anginal CP, PND, orthopnea, palpitation GI : NO n/v ,diarrhea or GI bleeding . TIP PRINTER : No headache, vertigo, focal deficit. moves all extremities. Presently no jerking movements noted. Musculoskel : No joint swelling , Derm : No rash Psych : Normal affect. Ext : No swelling ,calf pain PE. Pt. is AWAKE, in no distress. V.S As noted in the chart Head ,ear nose,throat and eyes : Normal. Neck : Supple with normal carotids. Lungs: Clear air entry. Heart : S1 & S2 normal with S4. No murmur. Abd :LOWER ABDOMEN -ve tenderness ,with normal bowel sounds. Neuro : Moves all ext. LEFT BKA, RT LOWER EXTREMITY WITH A HEALING LACERATION, +VE DRESSING IN PLACE Ext : No edema with intact pulses.Non tender calves Derm : No rashes or decubitus ulcer. LABS/RADIOLOGY: 24 HR EEG -READ BY ABNORMAL-EPILEPTIC ACTIVITY NOTED nebkltyx12/27/18 Repeat blood cultures-ve growth to date. ASSESSMENT. ALTERED MENTAL STATUS -IMPROVING- SEIZURE DISORDER UROSEPSIS KLEIBSIELLA-PNEUMONIAE +VE GALLSTONES/FATTY LIVER PVD /LT. BKA. ESRD ON HD TTS NOW MWF CAD. /PLAN : PER NEUROLOGY PT STARTED ON VALPROIC ACID HOLD OFF ANTIBIOTICS FOR NOW PER PMD/NEUROLOGY. OBSERVE FEVER CURVE OFF ANTIBIOTICS CASE DISCUSSED WITH DAUGHTER/AND STAFF. Objective - Vital Signs/Intake and Output Vital Signs (last 24 hours): Temp Pulse Resp BP Pulse Ox 98.2 F 87 20 114/64 95 09/28/18 15:00 09/28/18 16:00 09/28/18 15:00 09/28/18 15:00 09/28/18 15:00 - Medications Medications: Current Medications Acetaminophen (Tylenol 325mg Tab) 650 mg PO Q6 PRN PRN Reason: Fever >100.4 F Last Admin: 09/23/18 11:39 Dose: 650 mg Aspirin (Aspirin) 325 mg PO DAILY [facility] Last Admin: 09/28/18 10:17 Dose: 325 mg Calcitriol (Rocaltrol) 0.25 mcg PO DAILY [facility] Last Admin: 09/28/18 11:07 Dose: Not Given Dextrose (Dextrose 50% Inj) 0 ml IV STAT PRN; Protocol PRN Reason: Hypoglycemia Protocol Dextrose (Glutose 15) 0 gm PO ONCE PRN; Protocol PRN Reason: Hypoglycemia Protocol Epoetin Omi (Procrit) 10,000 unit IV MWF [facility] Last Admin: 09/27/18 15:50 Dose: 10,000 unit Famotidine (Pepcid) 20 mg PO DAILY [facility] Last Admin: 09/28/18 10:17 Dose: 20 mg Finasteride (Proscar) 5 mg PO DAILY [facility] Last Admin: 09/28/18 11:07 Dose: Not Given Glucagon (Glucagen Diagnostic Kit) 0 mg IM STAT PRN; Protocol PRN Reason: Hypoglycemia Protocol Heparin Sodium (Porcine) (Heparin) 5,000 units SC Q8 [facility] Last Admin: 09/28/18 21:33 Dose: 5,000 units Hydralazine HCl (Apresoline) 50 mg PO Q8 [facility] Last Admin: 09/28/18 21:33 Dose: 50 mg Hydrocortisone (Anusol-Hc) 0 gm GA BID [facility] Last Admin: 09/28/18 19:06 Dose: Not Given Dextrose (Dextrose 5% In Water 1000 Ml) 1,000 mls @ 0 mls/hr IV .Q0M PRN; Protocol PRN Reason: Hypoglycemia Protocol Insulin Human Regular (Novolin R) 0 unit SC ACHS [facility]; Protocol Last Admin: 09/28/18 18:14 Dose: Not Given Lactic Acid (Lac-Hydrin 12% Lotion (225 G)) 0 gm EXT DAILY [facility] Last Admin: 09/28/18 10:19 Dose: 1 applic Lactulose (Enulose) 20 gm PO DAILY [facility] Last Admin: 09/28/18 10:17 Dose: 20 gm Metoprolol Succinate (Toprol Xl) 50 mg PO BID [facility] Last Admin: 09/28/18 18:29 Dose: 50 mg Rosuvastatin Calcium (Crestor) 5 mg PO HS [facility] Last Admin: 09/28/18 21:33 Dose: 5 mg Sevelamer Carbonate (Renvela) 0.8 gm PO TIDCC [facility] Valproate Sodium (Depakene Cap) 750 mg PO BID [facility] Vitamin B Complex/Vit C/Folic Acid (Nephro-Benoit) 1 tab PO 0800 [facility] - Labs Labs: 09/28/18 08:58 09/28/18 08:58 PT 12.6 SECONDS (9.7-12.2) H 09/24/18 13:35 INR 1.2 09/24/18 13:35 APTT 30 SECONDS (21-34) 09/24/18 13:35 Assessment and Plan (1) Abdominal pain Status: Acute (2) Fever Status: Acute (3) ESRD (end stage renal disease) on dialysis Status: Acute (4) Peripheral vascular disease Status: Acute (5) Diverticulitis Status: Acute
--- NOTE | 2018-09-29 00:55 | CP.PCM.PN ---
Subjective - Subjective Subjective: dcitated Objective - Vital Signs/Intake and Output Vital Signs (last 24 hours): Temp Pulse Resp BP Pulse Ox 98.2 F 87 20 114/64 95 09/28/18 15:00 09/28/18 16:00 09/28/18 15:00 09/28/18 15:00 09/28/18 15:00 - Medications Medications: Current Medications Acetaminophen (Tylenol 325mg Tab) 650 mg PO Q6 PRN PRN Reason: Fever >100.4 F Last Admin: 09/23/18 11:39 Dose: 650 mg Aspirin (Aspirin) 325 mg PO DAILY [facility] Last Admin: 09/28/18 10:17 Dose: 325 mg Calcitriol (Rocaltrol) 0.25 mcg PO DAILY [facility] Last Admin: 09/28/18 11:07 Dose: Not Given Dextrose (Dextrose 50% Inj) 0 ml IV STAT PRN; Protocol PRN Reason: Hypoglycemia Protocol Dextrose (Glutose 15) 0 gm PO ONCE PRN; Protocol PRN Reason: Hypoglycemia Protocol Epoetin Omi (Procrit) 10,000 unit IV MWF [facility] Last Admin: 09/27/18 15:50 Dose: 10,000 unit Famotidine (Pepcid) 20 mg PO DAILY [facility] Last Admin: 09/28/18 10:17 Dose: 20 mg Finasteride (Proscar) 5 mg PO DAILY [facility] Last Admin: 09/28/18 11:07 Dose: Not Given Glucagon (Glucagen Diagnostic Kit) 0 mg IM STAT PRN; Protocol PRN Reason: Hypoglycemia Protocol Heparin Sodium (Porcine) (Heparin) 5,000 units SC Q8 [facility] Last Admin: 09/28/18 21:33 Dose: 5,000 units Hydralazine HCl (Apresoline) 50 mg PO Q8 [facility] Last Admin: 09/28/18 21:33 Dose: 50 mg Hydrocortisone (Anusol-Hc) 0 gm ME BID [facility] Last Admin: 09/28/18 19:06 Dose: Not Given Dextrose (Dextrose 5% In Water 1000 Ml) 1,000 mls @ 0 mls/hr IV .Q0M PRN; Protocol PRN Reason: Hypoglycemia Protocol Insulin Human Regular (Novolin R) 0 unit SC ACHS [facility]; Protocol Last Admin: 09/28/18 18:14 Dose: Not Given Lactic Acid (Lac-Hydrin 12% Lotion (225 G)) 0 gm EXT DAILY [facility] Last Admin: 09/28/18 10:19 Dose: 1 applic Lactulose (Enulose) 20 gm PO DAILY [facility] Last Admin: 09/28/18 10:17 Dose: 20 gm Metoprolol Succinate (Toprol Xl) 50 mg PO BID [facility] Last Admin: 09/28/18 18:29 Dose: 50 mg Rosuvastatin Calcium (Crestor) 5 mg PO HS [facility] Last Admin: 09/28/18 21:33 Dose: 5 mg Sevelamer Carbonate (Renvela) 0.8 gm PO TIDCC [facility] Valproate Sodium (Depakene Cap) 750 mg PO BID [facility] Vitamin B Complex/Vit C/Folic Acid (Nephro-Benoit) 1 tab PO 0800 [facility] - Labs Labs: 09/28/18 08:58 09/28/18 08:58 PT 12.6 SECONDS (9.7-12.2) H 09/24/18 13:35 INR 1.2 09/24/18 13:35 APTT 30 SECONDS (21-34) 09/24/18 13:35
--- NOTE | 2018-09-29 02:55 | PN ---
DATE: 09/29/2018 SUBJECTIVE: Valentino Richards is complaining of generalized weakness, slightly tremor in the hand. He is seizure free. He is alert. He is afebrile. No shortness of breath. No chest pain. No nausea or vomiting. Blood sugar is 221. He has perianal itching. He is getting laxative, and he is on sliding scale. He feels better in all. PHYSICAL EXAMINATION: VITAL SIGNS: Blood pressure 144/63, pulse 91, respiratory rate 20, temperature 98.4. LUNGS: Bilaterally clear. No rale. No rhonchi. CARDIOVASCULAR SYSTEM: S1, S2, plus S3 positive. ABDOMEN: Soft. CENTRAL NERVOUS SYSTEM: The patient is awake, alert, oriented x3. ASSESSMENT: 1. Seizure disorder. 2. Pyelonephritis, urinary tract infection. 3. Chronic kidney disease. 4. Type 2 diabetes. PLAN: Continue current medication. Monitor the patient. Emilio Israel MD
[2018-09-29 07:59] LABS: BASO % 0.4 % (0.0-2.0); EOS # 0.2 K/uL (0.0-0.7); EOS % 1.4 % (0.0-4.0); LYMPH # 1.3 K/uL (1.0-4.3); LYMPH % 12.1 % (20.0-40.0); MEAN CELL VOLUME 96.7 fL (80.0-94.0); MEAN CORPUSCULAR HEMOGLOBIN 31.5 pg (27.0-31.0); MEAN CORPUSCULAR HGB CONC 32.5 g/dL (33.0-37.0); MEAN PLATELET VOLUME 8.8 fL (7.2-11.7); MONO # 0.9 K/uL (0.0-0.8); MONO % 8.7 % (0.0-10.0); NEUT # 8.2 K/uL (1.8-7.0); NEUT % 77.4 % (50.0-75.0); NRBC % 0.3 % (0.0-2.0); RBC 3.51 Mil/uL (4.40-5.90); RED CELL DISTRIBUTION WIDTH 15.4 % (11.5-14.5)
[2018-09-29] MEDS: (Novolin R) Insulin Human Regular 100 units/ml vial SC SCH ×4 (08:03→21:52)
[2018-09-29 08:08] LABS: WHITE BLOOD COUNT 10.6 K/uL (4.8-10.8)
[2018-09-29 08:18] LABS: ALB/GLOB RATIO 0.9 (1.0-2.1); ALBUMIN 3.8 g/dL (3.5-5.0); CALCIUM 8.5 mg/dl (8.6-10.4)
[2018-09-29] MEDS: Sevelamer Carb 0.8 gm/Packet PO SCH ×3 (08:40→19:27)
[2018-09-29] MEDS: Multivitamin Vitamin B Complex (Nephro-Vite) Tab PO SCH (08:40)
[2018-09-29] MEDS: Hydrocortisone 2.5% Rectal Cream(30 gm) PR SCH ×2 (09:56→19:27)
[2018-09-29] MEDS: Ammonium Lactate 12% Lotion (225 g) EXT SCH (09:57)
[2018-09-29] MEDS: Metoprolol Succinate 50 mg XL Tab PO SCH ×2 (09:57→19:29)
--- NOTE | 2018-09-29 10:40 | CP.PCM.PN ---
Subjective - Date & Time of Evaluation Date of Evaluation: 09/29/18 Time of Evaluation: 10:39 - Subjective Subjective: Neurology Consultation Follow-Up Note: Mr. Richards was evaluated this morning in dialysis. Mr. Richards is pleasant, awake, alert, oriented x3. He remains at his baseline mental status. He has exhibited much improvement in mentation and mood since we have been on this case. Today Mr. Richards answers all questions appropriately, follows commands, and engages in conversation. Denies headache, dizziness, visual changes, chest pain, shortness of breath, nausea/vomiting, twitching, paresthesias. Pt's only complaint is that he continues to have trouble holding a foam fabricator on objects, but this has been present for months per pt. Per nursing staff, no acute events last night; no twitching noted per nursing either; chart reviewed. Objective - Vital Signs/Intake and Output Vital Signs (last 24 hours): Temp Pulse Resp BP Pulse Ox 98.2 F 90 18 101/49 L 95 09/29/18 09:45 09/29/18 10:00 09/29/18 09:45 09/29/18 10:30 09/29/18 09:45 Intake and Output: 09/29/18 09/29/18 06:59 18:59 Intake Total 360 Balance 360 - Medications Medications: Current Medications Acetaminophen (Tylenol 325mg Tab) 650 mg PO Q6 PRN PRN Reason: Fever >100.4 F Last Admin: 09/23/18 11:39 Dose: 650 mg Aspirin (Aspirin) 325 mg PO DAILY [facility] Last Admin: 09/29/18 09:56 Dose: Not Given Calcitriol (Rocaltrol) 0.25 mcg PO DAILY [facility] Last Admin: 09/29/18 09:57 Dose: Not Given Dextrose (Dextrose 50% Inj) 0 ml IV STAT PRN; Protocol PRN Reason: Hypoglycemia Protocol Dextrose (Glutose 15) 0 gm PO ONCE PRN; Protocol PRN Reason: Hypoglycemia Protocol Epoetin Omi (Procrit) 10,000 unit IV MWF [facility] Last Admin: 09/27/18 15:50 Dose: 10,000 unit Famotidine (Pepcid) 20 mg PO DAILY [facility] Last Admin: 09/29/18 09:57 Dose: Not Given Finasteride (Proscar) 5 mg PO DAILY [facility] Last Admin: 09/29/18 10:34 Dose: Not Given Glucagon (Glucagen Diagnostic Kit) 0 mg IM STAT PRN; Protocol PRN Reason: Hypoglycemia Protocol Heparin Sodium (Porcine) (Heparin) 5,000 units SC Q8 [facility] Last Admin: 09/29/18 06:24 Dose: 5,000 units Hydralazine HCl (Apresoline) 50 mg PO Q8 [facility] Last Admin: 09/29/18 06:05 Dose: 50 mg Hydrocortisone (Anusol-Hc) 0 gm [place] BID [facility] Last Admin: 09/29/18 09:56 Dose: Not Given Dextrose (Dextrose 5% In Water 1000 Ml) 1,000 mls @ 0 mls/hr IV .Q0M PRN; Protocol PRN Reason: Hypoglycemia Protocol Insulin Human Regular (Novolin R) 0 unit SC ACHS [facility]; Protocol Last Admin: 09/29/18 08:03 Dose: Not Given Lactic Acid (Lac-Hydrin 12% Lotion (225 G)) 0 gm EXT DAILY [facility] Last Admin: 09/29/18 09:57 Dose: Not Given Lactulose (Enulose) 20 gm PO DAILY [facility] Last Admin: 09/29/18 09:56 Dose: Not Given Metoprolol Succinate (Toprol Xl) 50 mg PO BID [facility] Last Admin: 09/29/18 09:57 Dose: Not Given Rosuvastatin Calcium (Crestor) 5 mg PO HS [facility] Last Admin: 09/28/18 21:33 Dose: 5 mg Sevelamer Carbonate (Renvela) 0.8 gm PO TIDCC [facility] Last Admin: 09/29/18 08:40 Dose: 0.8 gm Valproate Sodium (Depakene Cap) 750 mg PO BID [facility] Last Admin: 09/29/18 09:56 Dose: Not Given Vitamin B Complex/Vit C/Folic Acid (Nephro-Benoit) 1 tab PO 0800 [facility] Last Admin: 09/29/18 08:40 Dose: 1 tab - Labs Labs: 09/29/18 07:45 09/29/18 07:45 PT 12.6 SECONDS (9.7-12.2) H 09/24/18 13:35 INR 1.2 09/24/18 13:35 APTT 30 SECONDS (21-34) 09/24/18 13:35 - Constitutional Appears: Well, Non-toxic, No Acute Distress - Head Exam Head Exam: ATRAUMATIC, NORMAL INSPECTION, NORMOCEPHALIC - Eye Exam Eye Exam: EOMI, Normal appearance, PERRL Pupil Exam: NORMAL ACCOMODATION, PERRL - ENT Exam ENT Exam: Mucous Membranes Moist - Neck Exam Neck Exam: Full ROM - Respiratory Exam Respiratory Exam: NORMAL BREATHING PATTERN - Neurological Exam Neurological Exam: Alert, Awake, Oriented x3 Neuro motor strength exam: Left Upper Extremity: 5, Right Upper Extremity: 5, Left Lower Extremity: 4, Right Lower Extremity: 4 Additional comments: Patient able to move all extremities independently and was able to eat breakfast without assistance yesterday per my observation. Speech clear and fluid. AAOx3. Sensation is equal and intact bilaterally. No right facial or right arm/hand twitching noted during exam; we have seen a resolution of this since loading him with Valproic Acid and maintaining the frequency at BID. No tremors noted to left extremities or left facial area either. No dysmetria. Strength to BUE equal and 5/5. Strength to BLE 4/5; left bka. No clonus. 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 Reflexes brisk bilaterally. - Psychiatric Exam Psychiatric exam: Normal Affect, Normal Mood - Skin Skin Exam: Normal Color Assessment and Plan (1) Focal motor seizure Assessment & Plan: Imaging: -CT Head without contract ordered today by cardiology for right hand "weakness": No acute intracranial hemorrhage. Mild diffuse/confluent chronic white matter is chemic changes seen extending peripherally into the deep and subcortical white matter both cerebral hemispheres most conspicuous in the anterior superior frontal lobe white matter bilaterally. Additionally, there are a few tiny scattered chronic bilateral basal nuclei lacunar type infarcts with a few suspected dilated perivascular spaces as well. Note that the possibility of a small hyperacute infarct cannot be excluded. Moderate generalized volume loss. -Mr. Richards is back to his baseline and he is doing good overall; much improved since date of admission. -Mr. Richards' EEG showed seizure activity (read by Dr. Burk) on 09/25/18. -As a result of the abnormal EEG, Mr. Richards was started on Valproic Acid. Based on the low Valproic Acid level yesterday and hand tremor noted by attending (exam normal when neuro team saw him), another loading dose of Valproic Acid was given. -We also increased the Valproic Acid to 750 mg po BID as of this morning and it is recommended that the pt be discharged home on this same regimen. Please note that med rec review was done and the pt did not receive his morning dose of valproic Acid 750 mg. -For subjective complaints of difficulty holding a foam fabricator on objects, regardless of the unremarkable neuro exam, we recommend that the pt receive aggressive OT to strength his foam fabricator. Head CT results reviewed with Dr. Burk and no change to plan of treatment. -PT/rehab -Continue fall precautions. -Discussed neuro plan in detail w JUSTINA Aleman. -Please notify neuro team of any acute changes in patient's condition. We will sign off at this time. Please reconsult prn. Case discussed with Dr. Burk. Thank you for allowing us to participate in this patient's care. Status: Acute
--- NOTE | 2018-09-29 12:09 | CP.PCM.PN ---
Subjective - Date & Time of Evaluation Date of Evaluation: 09/29/18 Time of Evaluation: 12:09 - Subjective Subjective: pt is seen and examined during hemodialysis, uf goal is about 2 lit, pt denies any complaints, feeling much better Objective - Vital Signs/Intake and Output Vital Signs (last 24 hours): Temp Pulse Resp BP Pulse Ox 98.2 F 90 18 122/64 95 09/29/18 09:45 09/29/18 10:00 09/29/18 09:45 09/29/18 11:15 09/29/18 09:45 Intake and Output: 09/29/18 09/29/18 06:59 18:59 Intake Total 360 Balance 360 - Medications Medications: Current Medications Acetaminophen (Tylenol 325mg Tab) 650 mg PO Q6 PRN PRN Reason: Fever >100.4 F Last Admin: 09/23/18 11:39 Dose: 650 mg Aspirin (Aspirin) 325 mg PO DAILY [facility] Last Admin: 09/29/18 09:56 Dose: Not Given Calcitriol (Rocaltrol) 0.25 mcg PO DAILY [facility] Last Admin: 09/29/18 09:57 Dose: Not Given Dextrose (Dextrose 50% Inj) 0 ml IV STAT PRN; Protocol PRN Reason: Hypoglycemia Protocol Dextrose (Glutose 15) 0 gm PO ONCE PRN; Protocol PRN Reason: Hypoglycemia Protocol Epoetin Omi (Procrit) 10,000 unit IV MWF [facility] Last Admin: 09/27/18 15:50 Dose: 10,000 unit Famotidine (Pepcid) 20 mg PO DAILY [facility] Last Admin: 09/29/18 09:57 Dose: Not Given Finasteride (Proscar) 5 mg PO DAILY [facility] Last Admin: 09/29/18 10:34 Dose: Not Given Glucagon (Glucagen Diagnostic Kit) 0 mg IM STAT PRN; Protocol PRN Reason: Hypoglycemia Protocol Heparin Sodium (Porcine) (Heparin) 5,000 units SC Q8 [facility] Last Admin: 09/29/18 06:24 Dose: 5,000 units Hydralazine HCl (Apresoline) 50 mg PO Q8 [facility] Last Admin: 09/29/18 06:05 Dose: 50 mg Hydrocortisone (Anusol-Hc) 0 gm DE BID [facility] Last Admin: 09/29/18 09:56 Dose: Not Given Dextrose (Dextrose 5% In Water 1000 Ml) 1,000 mls @ 0 mls/hr IV .Q0M PRN; Protocol PRN Reason: Hypoglycemia Protocol Insulin Human Regular (Novolin R) 0 unit SC ACHS [facility]; Protocol Last Admin: 09/29/18 11:38 Dose: Not Given Lactic Acid (Lac-Hydrin 12% Lotion (225 G)) 0 gm EXT DAILY [facility] Last Admin: 09/29/18 09:57 Dose: Not Given Lactulose (Enulose) 20 gm PO DAILY [facility] Last Admin: 09/29/18 09:56 Dose: Not Given Metoprolol Succinate (Toprol Xl) 50 mg PO BID [facility] Last Admin: 09/29/18 09:57 Dose: Not Given Rosuvastatin Calcium (Crestor) 5 mg PO HS [facility] Last Admin: 09/28/18 21:33 Dose: 5 mg Sevelamer Carbonate (Renvela) 0.8 gm PO TIDCC [facility] Last Admin: 09/29/18 11:39 Dose: Not Given Valproate Sodium (Depakene Cap) 750 mg PO BID [facility] Last Admin: 09/29/18 09:56 Dose: Not Given Vitamin B Complex/Vit C/Folic Acid (Nephro-Benoit) 1 tab PO 0800 [facility] Last Admin: 09/29/18 08:40 Dose: 1 tab - Labs Labs: 09/29/18 07:45 09/29/18 07:45 PT 12.6 SECONDS (9.7-12.2) H 09/24/18 13:35 INR 1.2 09/24/18 13:35 APTT 30 SECONDS (21-34) 09/24/18 13:35 - Constitutional Appears: Well, Non-toxic, No Acute Distress - Head Exam Head Exam: ATRAUMATIC, NORMAL INSPECTION - Eye Exam Eye Exam: EOMI, Normal appearance, PERRL Pupil Exam: NORMAL ACCOMODATION - ENT Exam ENT Exam: Mucous Membranes Moist - Neck Exam Neck Exam: Full ROM - Respiratory Exam Respiratory Exam: Clear to Ausculation Bilateral, NORMAL BREATHING PATTERN - Cardiovascular Exam Cardiovascular Exam: REGULAR RHYTHM, +S1, +S2 - GI/Abdominal Exam GI & Abdominal Exam: Soft, Normal Bowel Sounds - Rectal Exam Rectal Exam: Deferred - Extremities Exam Extremities Exam: Normal Inspection Additional comments: s/p left bka, dressing to rt leg+ - Neurological Exam Neurological Exam: Alert, Awake, CN II-XII Intact, Oriented x3 - Skin Skin Exam: Normal Color Assessment and Plan - Assessment and Plan (Free Text) Assessment: 73 yo AA male with pmh/o htn, dm esrd, pvd, s/p left bka, s/p pacemaker, diverticulosis, s/p diverticulitis, anemia, s/p c.diff , bph was admitted with lower abd. pain, dysuria, frequency, low garde fever 1. ESRD 2. HTN 3. DM 4. UTI 5. AMS, most likely sec to metabolic encephalopathy sec to drug, Maxipime pt is reciving 1gm q 12 hrs (renal dose 500 mg q2 4 hrs), r/o seizers urine c/s is + for GNR, identified as K. pneumonia blood c/s, no growth so far d/c Maxipine c/w current anti HTN meds low na, low K+diet c/w po4 binders f/u with neurology, started on depakene ? seizers pt is being dialyzed, uf goal is 2 lit consider bed side physical therapy, KEANU placement
--- NOTE | 2018-09-29 14:17 | CT ---
Date of service: 09/29/2018 PROCEDURE: CT HEAD WITHOUT CONTRAST. HISTORY: Right hand weakness COMPARISON: Comparison made with prior CT scan brain dated 09/24/2018.. TECHNIQUE: Axial computed tomography images were obtained through the head/brain without intravenous contrast. Radiation dose: Total exam DLP = 2197.56 mGy-cm. This CT exam was performed using one or more of the following dose reduction techniques: Automated exposure control, adjustment of the mA and/or kV according to patient size, and/or use of iterative reconstruction technique. FINDINGS: HEMORRHAGE: No intracranial hemorrhage. BRAIN: Mild diffuse/confluent chronic white matter ischemic changes seen extending peripherally into the deep and subcortical white matter both cerebral hemispheres most conspicuous in the anterior superior frontal lobe white matter bilaterally. Additionally, there are a few tiny scattered chronic bilateral basal nuclei lacunar type infarcts with a few suspected dilated perivascular spaces as well. Note that the possibility of small hyperacute infarct cannot be excluded Moderate generalized volume loss. No obvious parenchymal nor extra-axial mass or collection seen on this noncontrast exam. .Vascular calcifications both carotid siphons and vertebral arteries. VENTRICLES: No obstructive hydrocephalus. CALVARIUM: Unremarkable. PARANASAL SINUSES: Unremarkable as visualized. No significant inflammatory changes. MASTOID AIR CELLS: Unremarkable as visualized. No inflammatory changes. OTHER FINDINGS: Changes of bilateral cataract surgery again noted. IMPRESSION: No acute intracranial hemorrhage. Mild diffuse/confluent chronic white matter ischemic changes seen extending peripherally into the deep and subcortical white matter both cerebral hemispheres most conspicuous in the anterior superior frontal lobe white matter bilaterally. Additionally, there are a few tiny scattered chronic bilateral basal nuclei lacunar type infarcts with a few suspected dilated perivascular spaces as well. Note that the possibility of a small hyperacute infarct cannot be excluded Moderate generalized volume loss.
--- NOTE | 2018-09-29 14:24 | CP.PCM.PN ---
Subjective - Date & Time of Evaluation Date of Evaluation: 09/29/18 Time of Evaluation: 14:23 - Subjective Subjective: HIEF COMPLAINTS TODAY : S/P HD TODAY afebrile ,vss AWAKE ,SLEEPY. NO MORE SEIZURES ROS. HEENT : N. Resp : mild cough, no wheezing ,pleuritic CP ,or hemoptysis Cardio : No anginal CP, PND, orthopnea, palpitation GI : NO n/v ,diarrhea or GI bleeding . 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 moves all extremities. Presently no jerking movements noted. Musculoskel : No joint swelling , Derm : No rash Psych : Normal affect. Ext : No swelling ,calf pain PE. Pt. is AWAKE, in no distress. V.S As noted in the chart Head ,ear nose,throat and eyes : Normal. Neck : Supple with normal carotids. Lungs: Clear air entry. Heart : S1 & S2 normal with S4. No murmur. Abd :LOWER ABDOMEN -ve tenderness ,with normal bowel sounds. Neuro : Moves all ext. LEFT BKA, RT LOWER EXTREMITY WITH A HEALING LACERATION, +VE DRESSING IN PLACE Ext : No edema with intact pulses.Non tender calves Derm : No rashes or decubitus ulcer. LABS/RADIOLOGY: LABS REVIEWED 24 HR EEG -READ BY ABNORMAL-EPILEPTIC ACTIVITY NOTED [id number] Repeat blood cultures-ve growth to date. ASSESSMENT. SEIZURE DISORDER S/P UROSEPSIS KLEIBSIELLA-PNEUMONIAE. +VE GALLSTONES/FATTY LIVER PVD /LT. BKA. ESRD ON HD TTS NOW MWF CAD. PLAN : PER NEUROLOGY PT STARTED ON VALPROIC ACID OFF ANTIBIOTICS FOR NOW. Objective - Vital Signs/Intake and Output Vital Signs (last 24 hours): Temp Pulse Resp BP Pulse Ox 98.2 F 90 18 110/66 95 09/29/18 09:45 09/29/18 10:00 09/29/18 09:45 09/29/18 12:45 09/29/18 09:45 Intake and Output: 09/29/18 09/29/18 06:59 18:59 Intake Total 360 Balance 360 - Medications Medications: Current Medications Acetaminophen (Tylenol 325mg Tab) 650 mg PO Q6 PRN PRN Reason: Fever >100.4 F Last Admin: 09/23/18 11:39 Dose: 650 mg Aspirin (Aspirin) 325 mg PO DAILY [facility] Last Admin: 09/29/18 09:56 Dose: Not Given Calcitriol (Rocaltrol) 0.25 mcg PO DAILY [facility] Last Admin: 09/29/18 09:57 Dose: Not Given Dextrose (Dextrose 50% Inj) 0 ml IV STAT PRN; Protocol PRN Reason: Hypoglycemia Protocol Dextrose (Glutose 15) 0 gm PO ONCE PRN; Protocol PRN Reason: Hypoglycemia Protocol Epoetin Omi (Procrit) 10,000 unit IV MWF [facility] Last Admin: 09/27/18 15:50 Dose: 10,000 unit Famotidine (Pepcid) 20 mg PO DAILY [facility] Last Admin: 09/29/18 09:57 Dose: Not Given Finasteride (Proscar) 5 mg PO DAILY [facility] Last Admin: 09/29/18 10:34 Dose: Not Given Glucagon (Glucagen Diagnostic Kit) 0 mg IM STAT PRN; Protocol PRN Reason: Hypoglycemia Protocol Heparin Sodium (Porcine) (Heparin) 5,000 units SC Q8 [facility] Last Admin: 09/29/18 13:20 Dose: Not Given Hydralazine HCl (Apresoline) 50 mg PO Q8 [facility] Last Admin: 09/29/18 13:20 Dose: Not Given Hydrocortisone (Anusol-Hc) 0 gm ND BID [facility] Last Admin: 09/29/18 09:56 Dose: Not Given Dextrose (Dextrose 5% In Water 1000 Ml) 1,000 mls @ 0 mls/hr IV .Q0M PRN; Protocol PRN Reason: Hypoglycemia Protocol Insulin Human Regular (Novolin R) 0 unit SC ACHS [facility]; Protocol Last Admin: 09/29/18 11:38 Dose: Not Given Lactic Acid (Lac-Hydrin 12% Lotion (225 G)) 0 gm EXT DAILY [facility] Last Admin: 09/29/18 09:57 Dose: Not Given Lactulose (Enulose) 20 gm PO DAILY [facility] Last Admin: 09/29/18 09:56 Dose: Not Given Metoprolol Succinate (Toprol Xl) 50 mg PO BID [facility] Last Admin: 09/29/18 09:57 Dose: Not Given Rosuvastatin Calcium (Crestor) 5 mg PO HS [facility] Last Admin: 09/28/18 21:33 Dose: 5 mg Sevelamer Carbonate (Renvela) 0.8 gm PO TIDCC [facility] Last Admin: 09/29/18 11:39 Dose: Not Given Valproate Sodium (Depakene Cap) 750 mg PO BID [facility] Last Admin: 09/29/18 09:56 Dose: Not Given Vitamin B Complex/Vit C/Folic Acid (Nephro-Benoit) 1 tab PO 0800 [facility] Last Admin: 09/29/18 08:40 Dose: 1 tab - Labs Labs: 09/29/18 07:45 09/29/18 07:45 PT 12.6 SECONDS (9.7-12.2) H 09/24/18 13:35 INR 1.2 09/24/18 13:35 APTT 30 SECONDS (21-34) 09/24/18 13:35 Assessment and Plan (1) Abdominal pain Status: Acute (2) Fever Status: Acute (3) ESRD (end stage renal disease) on dialysis Status: Acute (4) Peripheral vascular disease Status: Acute (5) Diverticulitis Status: Acute
--- NOTE | 2018-09-29 15:57 | PN ---
DATE: 09/29/2018 SUBJECTIVE: The patient denies chest pain. 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 PHYSICAL EXAMINATION: VITAL SIGNS: Blood pressure 115/60, heart rate 91, temperature 98.2, and respirations 18. HEENT: Normocephalic. CHEST: Clear. HEART: S1 and S2 regular. EXTREMITIES: Left below-knee amputation. LABORATORY DATA: Today's hemoglobin and hematocrit 11 and 33.9. White count and platelet count are within normal limit. Today's BUN and creatinine are 34 and 10, glucose 142, and calcium is below normal at 8.5. ASSESSMENT: 1. Coronary artery disease with known total occlusion of right coronary artery. 2. Focal motor seizure. 3. Rule out cerebrovascular accident. 4. End-stage renal disease, on hemodialysis. 5. Peripheral vascular disease, status post left knee amputation. RECOMMENDATIONS: Resume Toprol 50 mg twice a day. Continue subcutaneous heparin 5000 units every 8 hours. Resume aspirin 325 mg once a day, hydralazine 50 mg every 8 hours, and Crestor 5 mg once a day. I requested a CT scan without contrast to be done today. Roberto Mayer MD
--- NOTE | 2018-09-29 23:58 | CP.PCM.PN ---
Subjective - Subjective Subjective: dictated Objective - Vital Signs/Intake and Output Vital Signs (last 24 hours): Temp Pulse Resp BP Pulse Ox 98.6 F 100 H 20 114/66 96 09/29/18 15:54 09/29/18 17:00 09/29/18 15:54 09/29/18 15:54 09/29/18 15:54 - Medications Medications: Current Medications Acetaminophen (Tylenol 325mg Tab) 650 mg PO Q6 PRN PRN Reason: Fever >100.4 F Last Admin: 09/23/18 11:39 Dose: 650 mg Aspirin (Aspirin) 325 mg PO DAILY [facility] Last Admin: 09/29/18 09:56 Dose: Not Given Calcitriol (Rocaltrol) 0.25 mcg PO DAILY [facility] Last Admin: 09/29/18 09:57 Dose: Not Given Dextrose (Dextrose 50% Inj) 0 ml IV STAT PRN; Protocol PRN Reason: Hypoglycemia Protocol Dextrose (Glutose 15) 0 gm PO ONCE PRN; Protocol PRN Reason: Hypoglycemia Protocol Epoetin Omi (Procrit) 10,000 unit IV MWF [facility] Last Admin: 09/27/18 15:50 Dose: 10,000 unit Famotidine (Pepcid) 20 mg PO DAILY [facility] Last Admin: 09/29/18 09:57 Dose: Not Given Finasteride (Proscar) 5 mg PO DAILY [facility] Last Admin: 09/29/18 10:34 Dose: Not Given Glucagon (Glucagen Diagnostic Kit) 0 mg IM STAT PRN; Protocol PRN Reason: Hypoglycemia Protocol Heparin Sodium (Porcine) (Heparin) 5,000 units SC Q8 [facility] Last Admin: 09/29/18 21:52 Dose: 5,000 units Hydralazine HCl (Apresoline) 50 mg PO Q8 [facility] Last Admin: 09/29/18 21:52 Dose: Not Given Hydrocortisone (Anusol-Hc) 0 gm MO BID [facility] Last Admin: 09/29/18 19:27 Dose: Not Given Dextrose (Dextrose 5% In Water 1000 Ml) 1,000 mls @ 0 mls/hr IV .Q0M PRN; Protocol PRN Reason: Hypoglycemia Protocol Insulin Human Regular (Novolin R) 0 unit SC ACHS [facility]; Protocol Last Admin: 09/29/18 21:52 Dose: Not Given Lactic Acid (Lac-Hydrin 12% Lotion (225 G)) 0 gm EXT DAILY [facility] Last Admin: 09/29/18 09:57 Dose: Not Given Lactulose (Enulose) 20 gm PO DAILY [facility] Last Admin: 09/29/18 09:56 Dose: Not Given Metoprolol Succinate (Toprol Xl) 50 mg PO BID [facility] Last Admin: 09/29/18 19:29 Dose: Not Given Rosuvastatin Calcium (Crestor) 5 mg PO HS [facility] Last Admin: 09/29/18 21:51 Dose: 5 mg Sevelamer Carbonate (Renvela) 0.8 gm PO TIDCC [facility] Last Admin: 09/29/18 19:27 Dose: 0.8 gm Valproate Sodium (Depakene Cap) 750 mg PO BID [facility] Last Admin: 09/29/18 19:26 Dose: 750 mg Vitamin B Complex/Vit C/Folic Acid (Nephro-Benoit) 1 tab PO 0800 [facility] Last Admin: 09/29/18 08:40 Dose: 1 tab - Labs Labs: 09/29/18 07:45 09/29/18 07:45 PT 12.6 SECONDS (9.7-12.2) H 09/24/18 13:35 INR 1.2 09/24/18 13:35 APTT 30 SECONDS (21-34) 09/24/18 13:35
--- NOTE | 2018-09-30 04:17 | PN ---
DATE: 09/29/2018 SUBJECTIVE: The patient, Valentino Richards, complains of lack of coordination in his hands, but he is more alert. He is afebrile. His confusion has been resolved. He was evaluated by Neurology, and he underwent a CT of the head, and his CT of the head is negative for any acute event. PHYSICAL EXAMINATION: VITAL SIGNS: Blood pressure 114/66, pulse 102, respiratory rate 20, temperature 98.6. LUNGS: Clear. No rales. No rhonchi. CARDIOVASCULAR SYSTEM: S1, S2 plus S3 positive. ABDOMEN: Soft. ASSESSMENT: 1. Seizure episode. The patient is on Depakote. 2. Diabetes type 2. 3. Chronic kidney disease, on hemodialysis. 4. Hypertension. PLAN: Continue current medication. Monitor the patient. Emilio Israel MD
[2018-09-30] MEDS: (Novolin R) Insulin Human Regular 100 units/ml vial SC SCH ×4 (08:04→21:24)
[2018-09-30 09:09] LABS: BASO % 0.4 % (0.0-2.0); EOS # 0.2 K/uL (0.0-0.7); EOS % 1.7 % (0.0-4.0); HEMOGLOBIN 10.7 g/dL (12.0-18.0); LYMPH # 1.5 K/uL (1.0-4.3); LYMPH % 16.5 % (20.0-40.0); MEAN CORPUSCULAR HEMOGLOBIN 31.4 pg (27.0-31.0); MEAN CORPUSCULAR HGB CONC 32.3 g/dL (33.0-37.0); MEAN PLATELET VOLUME 8.6 fL (7.2-11.7); MONO # 0.9 K/uL (0.0-0.8); MONO % 9.7 % (0.0-10.0); NEUT # 6.5 K/uL (1.8-7.0); NEUT % 71.7 % (50.0-75.0); RBC 3.42 Mil/uL (4.40-5.90); RED CELL DISTRIBUTION WIDTH 15.4 % (11.5-14.5); WHITE BLOOD COUNT 9.1 K/uL (4.8-10.8)
[2018-09-30] MEDS: Metoprolol Succinate 50 mg XL Tab PO SCH ×2 (09:26→18:48)
[2018-09-30] MEDS: Multivitamin Vitamin B Complex (Nephro-Vite) Tab PO SCH (09:26)
[2018-09-30] MEDS: Sevelamer Carb 0.8 gm/Packet PO SCH ×3 (09:27→18:44)
[2018-09-30] MEDS: Hydrocortisone 2.5% Rectal Cream(30 gm) PR SCH ×2 (09:28→17:23)
[2018-09-30 09:31] LABS: CK-MB 2.61 ng/mL (0.0-3.38); TROPONIN I 0.08 ng/mL (0.00-0.120)
[2018-09-30] MEDS: Ammonium Lactate 12% Lotion (225 g) EXT SCH (09:31)
[2018-09-30 09:34] LABS: ALBUMIN 3.9 g/dL (3.5-5.0); CALCIUM 8.4 mg/dl (8.6-10.4)
--- NOTE | 2018-09-30 14:14 | CP.PCM.PN ---
Subjective - Date & Time of Evaluation Date of Evaluation: 09/30/18 Time of Evaluation: 14:14 - Subjective Subjective: pt is feeling better, no sob, no sob, no cp, , pt is back to normal in mental status, AA ox3 Objective - Vital Signs/Intake and Output Vital Signs (last 24 hours): Temp Pulse Resp BP Pulse Ox 98.2 F 96 H 20 118/53 L 98 09/30/18 07:38 09/30/18 08:00 09/30/18 07:38 09/30/18 07:38 09/30/18 07:38 - Medications Medications: Current Medications Acetaminophen (Tylenol 325mg Tab) 650 mg PO Q6 PRN PRN Reason: Fever >100.4 F Last Admin: 09/23/18 11:39 Dose: 650 mg Aspirin (Aspirin) 325 mg PO DAILY [facility] Last Admin: 09/30/18 09:26 Dose: 325 mg Calcitriol (Rocaltrol) 0.25 mcg PO DAILY [facility] Last Admin: 09/30/18 09:27 Dose: 0.25 mcg Dextrose (Dextrose 50% Inj) 0 ml IV STAT PRN; Protocol PRN Reason: Hypoglycemia Protocol Dextrose (Glutose 15) 0 gm PO ONCE PRN; Protocol PRN Reason: Hypoglycemia Protocol Epoetin Omi (Procrit) 10,000 unit IV MWF [facility] Last Admin: 09/27/18 15:50 Dose: 10,000 unit Famotidine (Pepcid) 20 mg PO DAILY [facility] Last Admin: 09/30/18 09:27 Dose: 20 mg Finasteride (Proscar) 5 mg PO DAILY [facility] Last Admin: 09/30/18 09:27 Dose: 5 mg Glucagon (Glucagen Diagnostic Kit) 0 mg IM STAT PRN; Protocol PRN Reason: Hypoglycemia Protocol Heparin Sodium (Porcine) (Heparin) 5,000 units SC Q8 [facility] Last Admin: 09/30/18 05:17 Dose: 5,000 units Hydralazine HCl (Apresoline) 50 mg PO Q8 [facility] Last Admin: 09/30/18 05:17 Dose: 50 mg Hydrocortisone (Anusol-Hc) 0 gm [place] BID [facility] Last Admin: 09/30/18 09:28 Dose: Not Given Dextrose (Dextrose 5% In Water 1000 Ml) 1,000 mls @ 0 mls/hr IV .Q0M PRN; Protocol PRN Reason: Hypoglycemia Protocol Insulin Human Regular (Novolin R) 0 unit SC ACHS [facility]; Protocol Last Admin: 09/30/18 12:58 Dose: 4 u Lactic Acid (Lac-Hydrin 12% Lotion (225 G)) 0 gm EXT DAILY [facility] Last Admin: 09/30/18 09:31 Dose: Not Given Lactulose (Enulose) 20 gm PO DAILY [facility] Last Admin: 09/30/18 09:26 Dose: 20 gm Metoprolol Succinate (Toprol Xl) 50 mg PO BID [facility] Last Admin: 09/30/18 09:26 Dose: 50 mg Rosuvastatin Calcium (Crestor) 5 mg PO HS [facility] Last Admin: 09/29/18 21:51 Dose: 5 mg Sevelamer Carbonate (Renvela) 0.8 gm PO TIDCC [facility] Last Admin: 09/30/18 12:58 Dose: 0.8 gm Valproate Sodium (Depakene Cap) 750 mg PO BID [facility] Last Admin: 09/30/18 09:27 Dose: 750 mg Vitamin B Complex/Vit C/Folic Acid (Nephro-Benoit) 1 tab PO 0800 [facility] Last Admin: 09/30/18 09:26 Dose: 1 tab - Labs Labs: 09/30/18 08:57 09/30/18 08:57 PT 12.6 SECONDS (9.7-12.2) H 09/24/18 13:35 INR 1.2 09/24/18 13:35 APTT 30 SECONDS (21-34) 09/24/18 13:35 - Constitutional Appears: Well, Non-toxic, No Acute Distress - Head Exam Head Exam: ATRAUMATIC, NORMAL INSPECTION - Eye Exam Eye Exam: EOMI, Normal appearance, PERRL Pupil Exam: NORMAL ACCOMODATION - ENT Exam ENT Exam: Mucous Membranes Moist - Neck Exam Neck Exam: Full ROM, Normal Inspection - Respiratory Exam Respiratory Exam: Clear to Ausculation Bilateral, NORMAL BREATHING PATTERN - Cardiovascular Exam Cardiovascular Exam: REGULAR RHYTHM, +S1, +S2 - GI/Abdominal Exam GI & Abdominal Exam: Soft, Normal Bowel Sounds - Rectal Exam Rectal Exam: Deferred - Extremities Exam Extremities Exam: Normal Inspection Additional comments: s/p left BKA, dressing to rt leg - Neurological Exam Neurological Exam: Alert, Awake, CN II-XII Intact, Oriented x3 - Psychiatric Exam Psychiatric exam: Normal Affect, Normal Mood - Skin Skin Exam: Normal Color, Warm Assessment and Plan - Assessment and Plan (Free Text) Assessment: 73 yo AA male with pmh/o htn, dm esrd, pvd, s/p left bka, s/p pacemaker, diverticulosis, s/p diverticulitis, anemia, s/p c.diff , bph was admitted with lower abd. pain, dysuria, frequency, low garde fever 1. ESRD 2. HTN 3. DM 4. UTI 5. AMS, most likely sec to metabolic encephalopathy sec to drug, Maxipime pt is reciving 1gm q 12 hrs (renal dose 500 mg q2 4 hrs), r/o seizers, pt's mental status is back to normal urine c/s is + for GNR, identified as K. pneumonia blood c/s, no growth so far d/c Maxipine c/w current anti HTN meds low na, low K+diet c/w po4 binders f/u with neurology, started on depakene ? seizers s/p hemodialysis, had a uf about 2 lit consider bed side physical therapy or KEANU placement
[2018-09-30 14:35] LABS: CK-MB 2.71 ng/mL (0.0-3.38); TROPONIN I 0.076 ng/mL (0.00-0.120)
--- NOTE | 2018-09-30 14:42 | CP.PCM.PN ---
Subjective - Date & Time of Evaluation Date of Evaluation: 09/30/18 Time of Evaluation: 14:42 - Subjective Subjective: CHIEF COMPLAINTS TODAY : NO ACUTE EVENTS OVERNIGHT afebrile ,vss AWAKE ,TALKATIVE NO MORE SEIZURES ROS. HEENT : N. Resp : NO cough, no wheezing ,pleuritic CP ,or hemoptysis Cardio : No anginal CP, PND, orthopnea, palpitation GI : NO n/v ,diarrhea or GI bleeding . 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 moves all extremities. Presently no jerking movements noted. Musculoskel : No joint swelling , Derm : No rash Psych : Normal affect. Ext : No swelling ,calf pain PE. Pt. is AWAKE, in no distress. V.S As noted in the chart Head ,ear nose,throat and eyes : Normal. Neck : Supple with normal carotids. Lungs: Clear air entry. Heart : S1 & S2 normal with S4. No murmur. Abd : SOFT ,with normal bowel sounds. Neuro : Moves all ext. LEFT BKA, RT LOWER EXTREMITY WITH A HEALING LACERATION, +VE DRESSING IN PLACE Ext : No edema with intact pulses.Non tender calves Derm : No rashes or decubitus ulcer. LABS/RADIOLOGY: LABS REVIEWED 24 HR EEG -READ BY ABNORMAL-EPILEPTIC ACTIVITY NOTED [id number]/18 Repeat blood cultures-ve growth to date. ASSESSMENT. SEIZURE DISORDER S/P UROSEPSIS KLEIBSIELLA-PNEUMONIAE. +VE GALLSTONES/FATTY LIVER PVD /LT. BKA. ESRD ON HD TTS NOW MWF CAD. PLAN : PER NEUROLOGY PT STARTED ON VALPROIC ACID OFF ANTIBIOTICS FOR NOW. PER CONSULTANTS/PMD Objective - Vital Signs/Intake and Output Vital Signs (last 24 hours): Temp Pulse Resp BP Pulse Ox 98.2 F 96 H 20 118/53 L 98 09/30/18 07:38 09/30/18 08:00 09/30/18 07:38 09/30/18 07:38 09/30/18 07:38 - Medications Medications: Current Medications Acetaminophen (Tylenol 325mg Tab) 650 mg PO Q6 PRN PRN Reason: Fever >100.4 F Last Admin: 09/23/18 11:39 Dose: 650 mg Aspirin (Aspirin) 325 mg PO DAILY [facility] Last Admin: 09/30/18 09:26 Dose: 325 mg Calcitriol (Rocaltrol) 0.25 mcg PO DAILY [facility] Last Admin: 09/30/18 09:27 Dose: 0.25 mcg Dextrose (Dextrose 50% Inj) 0 ml IV STAT PRN; Protocol PRN Reason: Hypoglycemia Protocol Dextrose (Glutose 15) 0 gm PO ONCE PRN; Protocol PRN Reason: Hypoglycemia Protocol Epoetin Omi (Procrit) 10,000 unit IV MWF [facility] Last Admin: 09/27/18 15:50 Dose: 10,000 unit Famotidine (Pepcid) 20 mg PO DAILY [facility] Last Admin: 09/30/18 09:27 Dose: 20 mg Finasteride (Proscar) 5 mg PO DAILY [facility] Last Admin: 09/30/18 09:27 Dose: 5 mg Glucagon (Glucagen Diagnostic Kit) 0 mg IM STAT PRN; Protocol PRN Reason: Hypoglycemia Protocol Heparin Sodium (Porcine) (Heparin) 5,000 units SC Q8 [facility] Last Admin: 09/30/18 05:17 Dose: 5,000 units Hydralazine HCl (Apresoline) 50 mg PO Q8 [facility] Last Admin: 09/30/18 05:17 Dose: 50 mg Hydrocortisone (Anusol-Hc) 0 gm OK BID [facility] Last Admin: 09/30/18 09:28 Dose: Not Given Dextrose (Dextrose 5% In Water 1000 Ml) 1,000 mls @ 0 mls/hr IV .Q0M PRN; Protocol PRN Reason: Hypoglycemia Protocol Insulin Human Regular (Novolin R) 0 unit SC ACHS [facility]; Protocol Last Admin: 09/30/18 12:58 Dose: 4 u Lactic Acid (Lac-Hydrin 12% Lotion (225 G)) 0 gm EXT DAILY [facility] Last Admin: 09/30/18 09:31 Dose: Not Given Lactulose (Enulose) 20 gm PO DAILY [facility] Last Admin: 09/30/18 09:26 Dose: 20 gm Metoprolol Succinate (Toprol Xl) 50 mg PO BID [facility] Last Admin: 09/30/18 09:26 Dose: 50 mg Rosuvastatin Calcium (Crestor) 5 mg PO HS [facility] Last Admin: 09/29/18 21:51 Dose: 5 mg Sevelamer Carbonate (Renvela) 0.8 gm PO TIDCC [facility] Last Admin: 09/30/18 12:58 Dose: 0.8 gm Valproate Sodium (Depakene Cap) 750 mg PO BID [facility] Last Admin: 09/30/18 09:27 Dose: 750 mg Vitamin B Complex/Vit C/Folic Acid (Nephro-Benoit) 1 tab PO 0800 [facility] Last Admin: 09/30/18 09:26 Dose: 1 tab - Labs Labs: 09/30/18 08:57 09/30/18 08:57 PT 12.6 SECONDS (9.7-12.2) H 09/24/18 13:35 INR 1.2 09/24/18 13:35 APTT 30 SECONDS (21-34) 09/24/18 13:35 Assessment and Plan (1) Abdominal pain Status: Acute (2) Fever Status: Acute (3) ESRD (end stage renal disease) on dialysis Status: Acute (4) Peripheral vascular disease Status: Acute (5) Diverticulitis Status: Acute
--- NOTE | 2018-09-30 16:27 | PN ---
DATE: 09/30/2018 SUBJECTIVE: The patient was noted to have 19 beats run of ventricular tachycardia, which was asymptomatic. The patient denies any chest pain, palpitation or dizziness. He is barely oriented to the place. His right hand hospitalist nocturnist physician has improved compared to yesterday's weakness. He is experiencing constipation. PHYSICAL EXAMINATION: VITAL SIGNS: Blood pressure 118/53, heart rate 94, temperature 98.2, respirations 20. HEENT: Pale conjunctivae. CHEST: Clear. HEART: S1, S2 regular. EXTREMITIES: Left below-knee amputation. LABORATORY DATA: Today's SMA-7: Sodium 135, potassium 3.4, chloride 92, CO2 of 29, glucose 176, BUN 26, creatinine 8. Hemoglobin and hematocrit 10.7 and 33.1 respectfully. White count and platelet count are within normal limits. Yesterday's head CT scan without contrast revealed no acute intracranial hemorrhage. Mild diffuse/confluent chronic white matter ischemic changes seen extending peripherally into the deep and subcortical white matter, both cerebral hemispheres, most conspicuous in the anterior superior frontal lobe with white matter bilaterally. Additionally, there are a few tiny scattered chronic bilateral basal nuclei, lacunar infarct type, with few suspected dilated preventricular spaces as well. Note that the possibility of small hyperacute infarcts cannot be excluded. ASSESSMENT: 1. Nonsustained ventricular tachycardia. 2. Coronary artery disease with known total occlusion of right coronary artery. 3. Peripheral vascular disease status post left below-knee amputation. 4. End-stage renal disease, on hemodialysis. 5. Seizure disorder. 6. Klebsiella pneumoniae urinary tract infection. RECOMMENDATIONS: Resume Toprol-XL at 50 mg twice a day. The patient did not receive his Toprol yesterday because of hemodialysis for unclear reason. Continue subcutaneous heparin 5000 units every 8 hours, aspirin 325 mg once a day, hydralazine 50 mg every 8 hours, Crestor 5 mg once a day. Obtain 2 sets EKG as well as one set of troponin. Roberto Mayer MD
--- NOTE | 2018-09-30 20:16 | CP.PCM.PN ---
Subjective - Subjective Subjective: dictated Objective - Vital Signs/Intake and Output Vital Signs (last 24 hours): Temp Pulse Resp BP Pulse Ox 99.2 F 93 H 20 96/51 L 97 09/30/18 15:35 09/30/18 15:47 09/30/18 15:35 09/30/18 15:35 09/30/18 15:35 - Medications Medications: Current Medications Acetaminophen (Tylenol 325mg Tab) 650 mg PO Q6 PRN PRN Reason: Fever >100.4 F Last Admin: 09/23/18 11:39 Dose: 650 mg Aspirin (Aspirin) 325 mg PO DAILY [facility] Last Admin: 09/30/18 09:26 Dose: 325 mg Calcitriol (Rocaltrol) 0.25 mcg PO DAILY [facility] Last Admin: 09/30/18 09:27 Dose: 0.25 mcg Dextrose (Dextrose 50% Inj) 0 ml IV STAT PRN; Protocol PRN Reason: Hypoglycemia Protocol Dextrose (Glutose 15) 0 gm PO ONCE PRN; Protocol PRN Reason: Hypoglycemia Protocol Epoetin Omi (Procrit) 10,000 unit IV MWF [facility] Last Admin: 09/27/18 15:50 Dose: 10,000 unit Famotidine (Pepcid) 20 mg PO DAILY [facility] Last Admin: 09/30/18 09:27 Dose: 20 mg Finasteride (Proscar) 5 mg PO DAILY [facility] Last Admin: 09/30/18 09:27 Dose: 5 mg Glucagon (Glucagen Diagnostic Kit) 0 mg IM STAT PRN; Protocol PRN Reason: Hypoglycemia Protocol Heparin Sodium (Porcine) (Heparin) 5,000 units SC Q8 [facility] Last Admin: 09/30/18 15:09 Dose: Not Given Hydralazine HCl (Apresoline) 50 mg PO Q8 [facility] Last Admin: 09/30/18 14:00 Dose: Not Given Hydrocortisone (Anusol-Hc) 0 gm OK BID [facility] Last Admin: 09/30/18 17:23 Dose: Not Given Dextrose (Dextrose 5% In Water 1000 Ml) 1,000 mls @ 0 mls/hr IV .Q0M PRN; Protocol PRN Reason: Hypoglycemia Protocol Insulin Human Regular (Novolin R) 0 unit SC ACHS [facility]; Protocol Last Admin: 09/30/18 18:44 Dose: 2 u Lactic Acid (Lac-Hydrin 12% Lotion (225 G)) 0 gm EXT DAILY [facility] Last Admin: 09/30/18 09:31 Dose: Not Given Lactulose (Enulose) 20 gm PO DAILY [facility] Last Admin: 09/30/18 09:26 Dose: 20 gm Metoprolol Succinate (Toprol Xl) 50 mg PO BID [facility] Last Admin: 09/30/18 18:48 Dose: 50 mg Rosuvastatin Calcium (Crestor) 5 mg PO HS [facility] Last Admin: 09/29/18 21:51 Dose: 5 mg Sevelamer Carbonate (Renvela) 0.8 gm PO TIDCC [facility] Last Admin: 09/30/18 18:44 Dose: 0.8 gm Valproate Sodium (Depakene Cap) 750 mg PO BID [facility] Last Admin: 09/30/18 18:48 Dose: 750 mg Vitamin B Complex/Vit C/Folic Acid (Nephro-Benoit) 1 tab PO 0800 [facility] Last Admin: 09/30/18 09:26 Dose: 1 tab - Labs Labs: 09/30/18 08:57 09/30/18 08:57 PT 12.6 SECONDS (9.7-12.2) H 09/24/18 13:35 INR 1.2 09/24/18 13:35 APTT 30 SECONDS (21-34) 09/24/18 13:35
--- NOTE | 2018-10-01 01:14 | PN ---
DATE: 09/30/2018 SUBJECTIVE: Valentino Richards is afebrile. No shortness of breath. Seen by ID. No nausea or vomiting. PHYSICAL EXAMINATION VITAL SIGNS: Blood pressure 118/53, pulse 94, respiratory rate 20, temperature 98.2. LUNGS: Clear. No rales. No rhonchi. CARDIOVASCULAR SYSTEM: S1 and S2 plus S3 positive. ABDOMEN: Soft. Nontender. Bowel sounds are positive. ASSESSMENT: 1. Acute pyelonephritis. Continue antibiotics. 2. Chronic kidney disease, on hemodialysis. 3. Seizure disorder, on Depakote. 4. Congestive heart failure. PLAN: Continue current medication. Monitor the patient. Emilio Israel MD
[2018-10-01] MEDS: (Novolin R) Insulin Human Regular 100 units/ml vial SC SCH ×4 (07:47→22:02)
[2018-10-01 08:37] LABS: BASO % 0.3 % (0.0-2.0); EOS # 0.1 K/uL (0.0-0.7); EOS % 1.8 % (0.0-4.0); HEMOGLOBIN 10.1 g/dL (12.0-18.0); LYMPH % 15.2 % (20.0-40.0); MEAN CELL VOLUME 96.4 fL (80.0-94.0); MEAN CORPUSCULAR HEMOGLOBIN 31.5 pg (27.0-31.0); MEAN CORPUSCULAR HGB CONC 32.7 g/dL (33.0-37.0); MEAN PLATELET VOLUME 9.3 fL (7.2-11.7); MONO # 0.6 K/uL (0.0-0.8); MONO % 8.7 % (0.0-10.0); RBC 3.2 Mil/uL (4.40-5.90); RED CELL DISTRIBUTION WIDTH 15.2 % (11.5-14.5); WHITE BLOOD COUNT 6.8 K/uL (4.8-10.8)
[2018-10-01 09:02] LABS: ALB/GLOB RATIO 1.1 (1.0-2.1); ALBUMIN 3.7 g/dL (3.5-5.0); CALCIUM 8.2 mg/dl (8.6-10.4)
[2018-10-01] MEDS: Sevelamer Carb 0.8 gm/Packet PO SCH ×3 (10:29→17:41)
[2018-10-01] MEDS: Multivitamin Vitamin B Complex (Nephro-Vite) Tab PO SCH (10:29)
[2018-10-01] MEDS: Ammonium Lactate 12% Lotion (225 g) EXT SCH (10:32)
[2018-10-01] MEDS: Hydrocortisone 2.5% Rectal Cream(30 gm) PR SCH ×2 (10:33→17:41)
[2018-10-01] MEDS: Metoprolol Succinate 50 mg XL Tab PO SCH ×2 (10:38→17:41)
--- NOTE | 2018-10-01 14:28 | CP.PCM.PN ---
Subjective - Date & Time of Evaluation Date of Evaluation: 10/01/18 Time of Evaluation: 14:28 - Subjective Subjective: pt is seen and examined, follow up consult is dictated #[id number] Objective - Vital Signs/Intake and Output Vital Signs (last 24 hours): Temp Pulse Resp BP Pulse Ox 98.1 F 88 20 113/51 L 96 10/01/18 07:25 10/01/18 08:00 10/01/18 07:25 10/01/18 07:25 10/01/18 07:25 - Medications Medications: Current Medications Acetaminophen (Tylenol 325mg Tab) 650 mg PO Q6 PRN PRN Reason: Fever >100.4 F Last Admin: 09/23/18 11:39 Dose: 650 mg Aspirin (Aspirin) 325 mg PO DAILY [facility] Last Admin: 10/01/18 10:37 Dose: 325 mg Calcitriol (Rocaltrol) 0.25 mcg PO DAILY [facility] Last Admin: 10/01/18 10:37 Dose: 0.25 mcg Dextrose (Dextrose 50% Inj) 0 ml IV STAT PRN; Protocol PRN Reason: Hypoglycemia Protocol Dextrose (Glutose 15) 0 gm PO ONCE PRN; Protocol PRN Reason: Hypoglycemia Protocol Epoetin Omi (Procrit) 10,000 unit IV MWF [facility] Last Admin: 09/27/18 15:50 Dose: 10,000 unit Famotidine (Pepcid) 20 mg PO DAILY [facility] Last Admin: 10/01/18 10:28 Dose: 20 mg Finasteride (Proscar) 5 mg PO DAILY [facility] Last Admin: 10/01/18 10:28 Dose: 5 mg Glucagon (Glucagen Diagnostic Kit) 0 mg IM STAT PRN; Protocol PRN Reason: Hypoglycemia Protocol Heparin Sodium (Porcine) (Heparin) 5,000 units SC Q8 [facility] Last Admin: 10/01/18 05:27 Dose: 5,000 units Hydralazine HCl (Apresoline) 50 mg PO Q8 [facility] Last Admin: 10/01/18 05:28 Dose: 50 mg Hydrocortisone (Anusol-Hc) 0 gm [place] BID [facility] Last Admin: 10/01/18 10:33 Dose: 1 applic Dextrose (Dextrose 5% In Water 1000 Ml) 1,000 mls @ 0 mls/hr IV .Q0M PRN; Protocol PRN Reason: Hypoglycemia Protocol Insulin Human Regular (Novolin R) 0 unit SC ACHS [facility]; Protocol Last Admin: 10/01/18 11:24 Dose: 2 u Lactic Acid (Lac-Hydrin 12% Lotion (225 G)) 0 gm EXT DAILY [facility] Last Admin: 10/01/18 10:32 Dose: 1 applic Lactulose (Enulose) 20 gm PO DAILY [facility] Last Admin: 10/01/18 10:29 Dose: 20 gm Metoprolol Succinate (Toprol Xl) 50 mg PO BID [facility] Last Admin: 10/01/18 10:38 Dose: 50 mg Rosuvastatin Calcium (Crestor) 5 mg PO HS [facility] Last Admin: 09/30/18 21:42 Dose: 5 mg Sevelamer Carbonate (Renvela) 0.8 gm PO TIDCC [facility] Last Admin: 10/01/18 11:24 Dose: 0.8 gm Valproate Sodium (Depakene Cap) 750 mg PO BID [facility] Last Admin: 10/01/18 10:30 Dose: 750 mg Vitamin B Complex/Vit C/Folic Acid (Nephro-Benoit) 1 tab PO 0800 [facility] Last Admin: 10/01/18 10:29 Dose: 1 tab - Labs Labs: 10/01/18 08:31 10/01/18 08:31 PT 12.6 SECONDS (9.7-12.2) H 09/24/18 13:35 INR 1.2 09/24/18 13:35 APTT 30 SECONDS (21-34) 09/24/18 13:35
--- NOTE | 2018-10-01 15:52 | PN ---
DATE: 10/01/2018 SUBJECTIVE: The patient denies chest pain. No reported ventricular tachycardia. He did have a bowel movement. PHYSICAL EXAMINATION: VITAL SIGNS: Blood pressure 115/51, heart rate 88, temperature 98.1, respirations 20. HEENT: Pale conjunctivae. CHEST: Clear. HEART: S1 and S2, regular. EXTREMITIES: Left below-knee amputation. LABORATORY DATA: Today's SMA-7: Sodium 134, potassium 4.1, chloride 93, CO2 of 25, glucose 140, BUN 41, creatinine 9.7. Troponin yesterday was 0.076. EKG done yesterday revealed sinus beats followed by ventricular paced rhythm or rather fusion beats, old inferior infarct and old anteroseptal infarct. ASSESSMENT: 1. Coronary artery disease with history of total occlusion of the right coronary artery. 2. Nonsustained ventricular tachycardia. 3. End-stage renal disease, on hemodialysis. 4. Klebsiella pneumoniae urinary tract infection. 5. Peripheral vascular disease status post left below-knee amputation. RECOMMENDATIONS: Continue aspirin 325 mg once a day, Crestor 5 mg once a day, Depakene 750 mg twice a day, lactulose 20 mg once a day, subcutaneous heparin 5000 units every 8 hours, Toprol-XL at 50 mg twice a day. Roberto Mayer MD
--- NOTE | 2018-10-01 21:47 | CP.PCM.PN ---
Subjective - Subjective Subjective: dictated Objective - Vital Signs/Intake and Output Vital Signs (last 24 hours): Temp Pulse Resp BP Pulse Ox 98.1 F 70 18 104/58 L 95 10/01/18 17:18 10/01/18 17:18 10/01/18 17:18 10/01/18 21:39 10/01/18 17:18 Intake and Output: 10/01/18 10/02/18 18:59 06:59 Intake Total 500 Balance 500 - Medications Medications: Current Medications Acetaminophen (Tylenol 325mg Tab) 650 mg PO Q6 PRN PRN Reason: Fever >100.4 F Last Admin: 09/23/18 11:39 Dose: 650 mg Aspirin (Aspirin) 325 mg PO DAILY [facility] Last Admin: 10/01/18 10:37 Dose: 325 mg Calcitriol (Rocaltrol) 0.25 mcg PO DAILY [facility] Last Admin: 10/01/18 10:37 Dose: 0.25 mcg Dextrose (Dextrose 50% Inj) 0 ml IV STAT PRN; Protocol PRN Reason: Hypoglycemia Protocol Dextrose (Glutose 15) 0 gm PO ONCE PRN; Protocol PRN Reason: Hypoglycemia Protocol Epoetin Omi (Procrit) 10,000 unit IV MWF [facility] Last Admin: 09/27/18 15:50 Dose: 10,000 unit Famotidine (Pepcid) 20 mg PO DAILY [facility] Last Admin: 10/01/18 10:28 Dose: 20 mg Finasteride (Proscar) 5 mg PO DAILY [facility] Last Admin: 10/01/18 10:28 Dose: 5 mg Glucagon (Glucagen Diagnostic Kit) 0 mg IM STAT PRN; Protocol PRN Reason: Hypoglycemia Protocol Heparin Sodium (Porcine) (Heparin) 5,000 units SC Q8 [facility] Last Admin: 10/01/18 21:27 Dose: 5,000 units Hydralazine HCl (Apresoline) 50 mg PO Q8 [facility] Last Admin: 10/01/18 21:39 Dose: Not Given Hydrocortisone (Anusol-Hc) 0 gm [place] BID [facility] Last Admin: 10/01/18 17:41 Dose: Not Given Dextrose (Dextrose 5% In Water 1000 Ml) 1,000 mls @ 0 mls/hr IV .Q0M PRN; Protocol PRN Reason: Hypoglycemia Protocol Insulin Human Regular (Novolin R) 0 unit SC ACHS [facility]; Protocol Last Admin: 10/01/18 17:41 Dose: 1 u Lactic Acid (Lac-Hydrin 12% Lotion (225 G)) 0 gm EXT DAILY [facility] Last Admin: 10/01/18 10:32 Dose: 1 applic Lactulose (Enulose) 20 gm PO DAILY [facility] Last Admin: 10/01/18 10:29 Dose: 20 gm Metoprolol Succinate (Toprol Xl) 50 mg PO BID [facility] Last Admin: 10/01/18 17:41 Dose: 50 mg Rosuvastatin Calcium (Crestor) 5 mg PO HS [facility] Last Admin: 10/01/18 21:27 Dose: 5 mg Sevelamer Carbonate (Renvela) 0.8 gm PO TIDCC [facility] Last Admin: 10/01/18 17:41 Dose: 0.8 gm Valproate Sodium (Depakene Cap) 750 mg PO BID [facility] Last Admin: 10/01/18 17:41 Dose: 750 mg Vitamin B Complex/Vit C/Folic Acid (Nephro-Benoit) 1 tab PO 0800 [facility] Last Admin: 10/01/18 10:29 Dose: 1 tab - Labs Labs: 10/01/18 08:31 10/01/18 08:31 PT 12.6 SECONDS (9.7-12.2) H 09/24/18 13:35 INR 1.2 09/24/18 13:35 APTT 30 SECONDS (21-34) 09/24/18 13:35
--- NOTE | 2018-10-02 01:57 | PN ---
DATE: 08/01/2018 LOCATION: The patient is located in room 557, bed B. REQUESTED BY: Emilio Israel MD REASON FOR RENAL CONSULTATION: End-stage renal disease, for continuation of hemodialysis. HISTORY OF PRESENT ILLNESS: Mr. Richards is 73-year-old elderly -[place] male with past medical history significant for longstanding hypertension, diabetes, end-stage renal disease, status post pacemaker placement who was admitted initially with chief complaints of lower abdominal pain and fever and the patient was being treated for UTI with IV Maxipime 1 g q.12h. Subsequently, his hospital course was complicated by altered mental status. About a week ago, the patient was transferred to ICU with also questionable seizure activity and started on valproic acid the patient is feeling much better now. Denies any chest pain or palpitation. Denies any fever or cough. No abdominal pain. No nausea, vomiting, or diarrhea. Occasional constipation. PHYSICAL EXAMINATION: GENERAL: Mr. Richards is a 73-year-old elderly male, moderately built, moderately nourished, not in acute distress. VITAL SIGNS: His vital signs as follows, blood pressure 120/70, pulse 90, respirations about 20, temperature 98.1, saturation 95% on room air. HEENT: Pupils normal, reactive to light and accommodation. Conjunctivae pink. Sclerae anicteric. Tongue is moist. Trachea is midline. LUNGS: Symmetric on both sides. Bilateral breath sounds present. Clear to auscultation. CVS: [place] at the fifth intercostal space, midclavicular area. S1 and S2 audibile. No murmur, no gallop. ABDOMEN: Normal in appearance, soft, tympanic. No guarding. No splenomegaly. 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 Sensory and motor system is grossly within normal limits. EXTREMITIES: No cyanosis, no clubbing, no edema on the right leg, status post left BKA. The patient has a dressing to the right leg. CURRENT MEDICATIONS: Include as follows, Anusol HC per rectal b.i.d. and hydralazine 50 mg p.o. q.8h., aspirin 325 mg p.o. daily and Crestor 5 mg at bedtime, Depakene capsule was 750 mg p.o. b.i.d. and lactulose 20 g p.o. daily and subcu heparin 5000 q.8h. and also Nephro-Benoit 1 tablet daily, Pepcid 20 mg p.o. daily and Procrit 10,000 units 3 times a week, Tuesday, Tuesday and Tuesday on hold for hemoglobin more than 11 and Proscar 5 mg p.o. daily and Renvela 800 mg p.o. t.i.d., calcitriol 0.25 mcg p.o. daily and metoprolol 50 mg p.o. b.i.d. and Tylenol 650 mg p.o. q.6h. His current lab data include as follows: As on 10/01/2018, WBC 6.8, hemoglobin 10.1, hematocrit is 30.9, platelets 156,000. Sodium 134, potassium 4.1, chloride 93, CO2 of 25, BUN 41, creatinine 9.7, glucose 240, calcium 8.2, phosphorus 5.1, magnesium 2.8, total bili 0.7, AST 32, ALT 26, alkaline phosphatase 101, total protein 7.3, albumin is 3.7. ASSESSMENT AND PLAN: In summary, Mr. Richards is 73-year-old elderly -[place] male with history of longstanding hypertension, diabetes, end-stage renal disease, status post UTI, status post altered mental status. 1. End-stage renal disease. Continue hemodialysis 3 times a week Tuesday, Tuesday and Tuesday. 2. Hypertension. Blood pressure is stable. Continue his current medications, hydralazine and metoprolol. 3. Status post UTI, off antibiotic, Maxipime. 4. Altered mental status most likely secondary to metabolic, secondary to drug-induced, Maxipime as the patient was receiving 1 g q.12h. with renal dose only 500 mg daily. Now the patient's mental status is back to almost normal. Continue bedside physical therapy. Patient is stable from the renal standpoint for possible D/C. Case discussed with Dr. Emilio Israel in rounds yesterday and we will follow with you. Thank you for allowing me to participate in your patient's care. Blanca Thakkar MD [facility] # [id number]
--- NOTE | 2018-10-02 02:31 | PN ---
DATE: 10/01/2018 SUBJECTIVE: He is afebrile. No nausea or vomiting. PHYSICAL EXAMINATION: VITAL SIGNS: Blood pressure 104/58, pulse 70, respiratory rate 18, temperature 98.1. LUNGS: Clear. No rales. No rhonchi. CARDIOVASCULAR SYSTEM: S1 and S2 plus S3 positive. ABDOMEN: Soft. ASSESSMENT: 1. Congestive heart failure. 2. Diabetes. 3. Hypertension. 4. Chronic kidney disease, on hemodialysis. 5. Anemia of chronic kidney disease. 6. Seizure disorder. PLAN: Continue current medications. Monitor the patient. Emilio Israel MD
[2018-10-02 07:29] LABS: BASO % 0.7 % (0.0-2.0); EOS # 0.1 K/uL (0.0-0.7); EOS % 2.9 % (0.0-4.0); HEMOGLOBIN 10.2 g/dL (12.0-18.0); LYMPH # 0.9 K/uL (1.0-4.3); LYMPH % 18.4 % (20.0-40.0); MEAN CELL VOLUME 97.5 fL (80.0-94.0); MEAN CORPUSCULAR HEMOGLOBIN 31.7 pg (27.0-31.0); MEAN CORPUSCULAR HGB CONC 32.5 g/dL (33.0-37.0); MEAN PLATELET VOLUME 9.3 fL (7.2-11.7); MONO # 0.6 K/uL (0.0-0.8); MONO % 12.1 % (0.0-10.0); NEUT # 3.3 K/uL (1.8-7.0); NEUT % 65.9 % (50.0-75.0); NRBC % 0.1 % (0.0-2.0); RBC 3.22 Mil/uL (4.40-5.90); RED CELL DISTRIBUTION WIDTH 15.9 % (11.5-14.5); WHITE BLOOD COUNT 4.9 K/uL (4.8-10.8)
[2018-10-02 08:18] LABS: ALB/GLOB RATIO 1.1 (1.0-2.1); ALBUMIN 3.8 g/dL (3.5-5.0)
[2018-10-02] MEDS: (Novolin R) Insulin Human Regular 100 units/ml vial SC SCH ×4 (08:28→21:30)
[2018-10-02] MEDS: Multivitamin Vitamin B Complex (Nephro-Vite) Tab PO SCH (08:49)
[2018-10-02] MEDS: Sevelamer Carb 0.8 gm/Packet PO SCH ×3 (08:49→18:56)
[2018-10-02] MEDS: Hydrocortisone 2.5% Rectal Cream(30 gm) PR SCH ×2 (10:50→18:59)
[2018-10-02] MEDS: Metoprolol Succinate 50 mg XL Tab PO SCH ×2 (10:50→18:57)
[2018-10-02] MEDS: Ammonium Lactate 12% Lotion (225 g) EXT SCH (10:50)
--- NOTE | 2018-10-02 12:39 | CP.PCM.PN ---
Subjective - Date & Time of Evaluation Date of Evaluation: 10/02/18 Time of Evaluation: 12:39 - Subjective Subjective: pt is seen and examined, follow up consult is dictated#[id number] for hd this afternoon, uf goal is 2-2.5 lit Objective - Vital Signs/Intake and Output Vital Signs (last 24 hours): Temp Pulse Resp BP Pulse Ox 98.8 F 75 20 130/63 95 10/02/18 08:00 10/02/18 08:00 10/02/18 08:00 10/02/18 08:00 10/02/18 08:00 Intake and Output: 10/02/18 10/02/18 06:59 18:59 Intake Total 100 Balance 100 - Medications Medications: Current Medications Acetaminophen (Tylenol 325mg Tab) 650 mg PO Q6 PRN PRN Reason: Fever >100.4 F Last Admin: 09/23/18 11:39 Dose: 650 mg Aspirin (Aspirin) 325 mg PO DAILY [facility] Last Admin: 10/02/18 10:48 Dose: 325 mg Calcitriol (Rocaltrol) 0.25 mcg PO DAILY [facility] Last Admin: 10/02/18 10:48 Dose: 0.25 mcg Dextrose (Dextrose 50% Inj) 0 ml IV STAT PRN; Protocol PRN Reason: Hypoglycemia Protocol Dextrose (Glutose 15) 0 gm PO ONCE PRN; Protocol PRN Reason: Hypoglycemia Protocol Epoetin Omi (Procrit) 10,000 unit IV MWF [facility] Last Admin: 09/27/18 15:50 Dose: 10,000 unit Famotidine (Pepcid) 20 mg PO DAILY [facility] Last Admin: 10/02/18 10:48 Dose: 20 mg Finasteride (Proscar) 5 mg PO DAILY [facility] Last Admin: 10/02/18 10:52 Dose: Not Given Glucagon (Glucagen Diagnostic Kit) 0 mg IM STAT PRN; Protocol PRN Reason: Hypoglycemia Protocol Hydralazine HCl (Apresoline) 50 mg PO Q8 [facility] Last Admin: 10/02/18 05:18 Dose: 50 mg Hydrocortisone (Anusol-Hc) 0 gm [place] BID [facility] Last Admin: 10/02/18 10:50 Dose: Not Given Dextrose (Dextrose 5% In Water 1000 Ml) 1,000 mls @ 0 mls/hr IV .Q0M PRN; Protocol PRN Reason: Hypoglycemia Protocol Insulin Human Regular (Novolin R) 0 unit SC [facility]; Protocol Last Admin: 10/02/18 08:28 Dose: 2 u Lactic Acid (Lac-Hydrin 12% Lotion (225 G)) 0 gm EXT DAILY [facility] Last Admin: 10/02/18 10:50 Dose: 1 applic Lactulose (Enulose) 20 gm PO DAILY [facility] Last Admin: 10/02/18 10:48 Dose: 20 gm Metoprolol Succinate (Toprol Xl) 50 mg PO BID [facility] Last Admin: 10/02/18 10:50 Dose: Not Given Rosuvastatin Calcium (Crestor) 5 mg PO HS [facility] Last Admin: 10/01/18 21:27 Dose: 5 mg Sevelamer Carbonate (Renvela) 0.8 gm PO TIDCC [facility] Last Admin: 10/02/18 08:49 Dose: 0.8 gm Valproate Sodium (Depakene Cap) 750 mg PO BID [facility] Last Admin: 10/02/18 10:48 Dose: 750 mg Vitamin B Complex/Vit C/Folic Acid (Nephro-Benoit) 1 tab PO 0800 [facility] Last Admin: 10/02/18 08:49 Dose: 1 tab - Labs Labs: 10/02/18 07:23 10/02/18 07:23 PT 12.6 SECONDS (9.7-12.2) H 09/24/18 13:35 INR 1.2 09/24/18 13:35 APTT 30 SECONDS (21-34) 09/24/18 13:35
--- NOTE | 2018-10-02 13:50 | CP.PCM.PN ---
Subjective - Date & Time of Evaluation Date of Evaluation: 10/02/18 Time of Evaluation: 13:50 - Subjective Subjective: CHIEF COMPLAINTS TODAY : SEEN ON HD TODAY 10/02/18 C/O GETTING CONFUSED OFF AND ON NO ACUTE EVENTS OVERNIGHT afebrile ,vss AWAKE ,TALKATIVE NO MORE SEIZURES ROS. HEENT : N. Resp : NO cough, no wheezing ,pleuritic CP ,or hemoptysis Cardio : No anginal CP, PND, orthopnea, palpitation GI : NO n/v ,diarrhea or GI bleeding . LOOM BLOWER : No headache, vertigo, focal deficit. moves all extremities. Presently no jerking movements noted. Musculoskel : No joint swelling , Derm : No rash Psych : Normal affect. Ext : No swelling ,calf pain PE. Pt. is AWAKE, in no distress. V.S As noted in the chart Head ,ear nose,throat and eyes : Normal. Neck : Supple with normal carotids. Lungs: Clear air entry. Heart : S1 & S2 normal with S4. No murmur. Abd : SOFT ,with normal bowel sounds. Neuro : Moves all ext. LEFT BKA, RT LOWER EXTREMITY WITH A HEALING LACERATION, +VE DRESSING IN PLACE Ext : No edema with intact pulses.Non tender calves Derm : No rashes or decubitus ulcer. LABS/RADIOLOGY: LABS REVIEWED 24 HR EEG -READ BY ABNORMAL-EPILEPTIC ACTIVITY NOTED [id number] Repeat blood cultures-ve growth to date. ASSESSMENT. SEIZURE DISORDER S/P UROSEPSIS KLEIBSIELLA-PNEUMONIAE. +VE GALLSTONES/FATTY LIVER PVD /LT. BKA. ESRD ON HD TTS NOW MWF CAD. PLAN : PER NEUROLOGY PT STARTED ON VALPROIC ACID OFF ANTIBIOTICS FOR NOW. PER CONSULTANTS/PMD Objective - Vital Signs/Intake and Output Vital Signs (last 24 hours): Temp Pulse Resp BP Pulse Ox 98.8 F 75 20 130/63 95 10/02/18 08:00 10/02/18 08:00 10/02/18 08:00 10/02/18 08:00 10/02/18 08:00 Intake and Output: 10/02/18 10/02/18 06:59 18:59 Intake Total 100 Balance 100 - Medications Medications: Current Medications Acetaminophen (Tylenol 325mg Tab) 650 mg PO Q6 PRN PRN Reason: Fever >100.4 F Last Admin: 09/23/18 11:39 Dose: 650 mg Aspirin (Aspirin) 325 mg PO DAILY [facility] Last Admin: 10/02/18 10:48 Dose: 325 mg Calcitriol (Rocaltrol) 0.25 mcg PO DAILY [facility] Last Admin: 10/02/18 10:48 Dose: 0.25 mcg Dextrose (Dextrose 50% Inj) 0 ml IV STAT PRN; Protocol PRN Reason: Hypoglycemia Protocol Dextrose (Glutose 15) 0 gm PO ONCE PRN; Protocol PRN Reason: Hypoglycemia Protocol Epoetin Omi (Procrit) 10,000 unit IV MWF [facility] Last Admin: 09/27/18 15:50 Dose: 10,000 unit Famotidine (Pepcid) 20 mg PO DAILY [facility] Last Admin: 10/02/18 10:48 Dose: 20 mg Finasteride (Proscar) 5 mg PO DAILY [facility] Last Admin: 10/02/18 10:52 Dose: Not Given Glucagon (Glucagen Diagnostic Kit) 0 mg IM STAT PRN; Protocol PRN Reason: Hypoglycemia Protocol Hydralazine HCl (Apresoline) 50 mg PO Q8 [facility] Last Admin: 10/02/18 13:24 Dose: Not Given Hydrocortisone (Anusol-Hc) 0 gm [place] BID [facility] Last Admin: 10/02/18 10:50 Dose: Not Given Dextrose (Dextrose 5% In Water 1000 Ml) 1,000 mls @ 0 mls/hr IV .Q0M PRN; Protocol PRN Reason: Hypoglycemia Protocol Insulin Human Regular (Novolin R) 0 unit SC [facility]; Protocol Last Admin: 10/02/18 12:26 Dose: 3 u Lactic Acid (Lac-Hydrin 12% Lotion (225 G)) 0 gm EXT DAILY [facility] Last Admin: 10/02/18 10:50 Dose: 1 applic Lactulose (Enulose) 20 gm PO DAILY [facility] Last Admin: 10/02/18 10:48 Dose: 20 gm Metoprolol Succinate (Toprol Xl) 50 mg PO BID [facility] Last Admin: 10/02/18 10:50 Dose: Not Given Rosuvastatin Calcium (Crestor) 5 mg PO HS [facility] Last Admin: 10/01/18 21:27 Dose: 5 mg Sevelamer Carbonate (Renvela) 0.8 gm PO TIDCC [facility] Last Admin: 10/02/18 12:56 Dose: 0.8 gm Valproate Sodium (Depakene Cap) 750 mg PO BID [facility] Last Admin: 10/02/18 10:48 Dose: 750 mg Vitamin B Complex/Vit C/Folic Acid (Nephro-Benoit) 1 tab PO 0800 [facility] Last Admin: 10/02/18 08:49 Dose: 1 tab - Labs Labs: 10/02/18 07:23 10/02/18 07:23 PT 12.6 SECONDS (9.7-12.2) H 09/24/18 13:35 INR 1.2 09/24/18 13:35 APTT 30 SECONDS (21-34) 09/24/18 13:35 Assessment and Plan (1) Abdominal pain Status: Acute (2) Fever Status: Acute (3) ESRD (end stage renal disease) on dialysis Status: Acute (4) Peripheral vascular disease Status: Acute (5) Diverticulitis Status: Acute
--- NOTE | 2018-10-02 16:21 | PN ---
DATE: 10/02/2018 SUBJECTIVE: The patient denies any chest pain. He is oriented to place. No reported nonsustained ventricular tachycardia. PHYSICAL EXAMINATION: VITAL SIGNS: Blood pressure 130/63, heart rate 75, temperature 98.8, and respirations 20. HEENT: Normocephalic. CHEST: Clear. HEART: S1 and S2 regular. EXTREMITIES: Left below-knee amputation. LABORATORY DATA: Today's hemoglobin and hematocrit 10.2 and 31.4. White count and platelet counts are within normal limit. Today's BUN and creatinine are 55 and 12 respectively. Glucose is 164. ASSESSMENT: 1. Coronary artery disease with known total occlusion of the right coronary artery. 2. Nonsustained ventricular tachycardia. 3. Peripheral vascular disease, status post left below-knee amputation. 4. End-stage renal disease, on hemodialysis. 5. Klebsiella pneumonia urinary tract infection. RECOMMENDATIONS: Continue aspirin 325 mg once a day, hydralazine 50 mg every 8 hours, Toprol XL at 50 mg twice a day. The patient will undergo his scheduled hemodialysis today. Roberto Mayer MD
--- NOTE | 2018-10-02 21:55 | CP.PCM.PN ---
Subjective - Subjective Subjective: dictated Objective - Vital Signs/Intake and Output Vital Signs (last 24 hours): Temp Pulse Resp BP Pulse Ox 97.6 F 104 H 20 129/62 98 10/02/18 18:35 10/02/18 18:35 10/02/18 18:35 10/02/18 21:31 10/02/18 18:35 - Medications Medications: Current Medications Acetaminophen (Tylenol 325mg Tab) 650 mg PO Q6 PRN PRN Reason: Fever >100.4 F Last Admin: 09/23/18 11:39 Dose: 650 mg Aspirin (Aspirin) 325 mg PO DAILY [facility] Last Admin: 10/02/18 10:48 Dose: 325 mg Calcitriol (Rocaltrol) 0.25 mcg PO DAILY [facility] Last Admin: 10/02/18 10:48 Dose: 0.25 mcg Dextrose (Dextrose 50% Inj) 0 ml IV STAT PRN; Protocol PRN Reason: Hypoglycemia Protocol Dextrose (Glutose 15) 0 gm PO ONCE PRN; Protocol PRN Reason: Hypoglycemia Protocol Epoetin Omi (Procrit) 10,000 unit IV MWF [facility] Last Admin: 09/27/18 15:50 Dose: 10,000 unit Famotidine (Pepcid) 20 mg PO DAILY [facility] Last Admin: 10/02/18 10:48 Dose: 20 mg Finasteride (Proscar) 5 mg PO DAILY [facility] Last Admin: 10/02/18 10:52 Dose: Not Given Glucagon (Glucagen Diagnostic Kit) 0 mg IM STAT PRN; Protocol PRN Reason: Hypoglycemia Protocol Hydralazine HCl (Apresoline) 50 mg PO Q8 [facility] Last Admin: 10/02/18 21:43 Dose: 50 mg Hydrocortisone (Anusol-Hc) 0 gm [place] BID [facility] Last Admin: 10/02/18 18:59 Dose: Not Given Insulin Human Regular (Novolin R) 0 unit SC ACHS [facility]; Protocol Last Admin: 10/02/18 21:30 Dose: Not Given Lactic Acid (Lac-Hydrin 12% Lotion (225 G)) 0 gm EXT DAILY [facility] Last Admin: 10/02/18 10:50 Dose: 1 applic Lactulose (Enulose) 20 gm PO DAILY [facility] Last Admin: 10/02/18 10:48 Dose: 20 gm Metoprolol Succinate (Toprol Xl) 50 mg PO BID [facility] Last Admin: 10/02/18 18:57 Dose: Not Given Rosuvastatin Calcium (Crestor) 5 mg PO HS [facility] Last Admin: 10/02/18 21:43 Dose: 5 mg Sevelamer Carbonate (Renvela) 0.8 gm PO TIDCC [facility] Last Admin: 10/02/18 18:56 Dose: 0.8 gm Valproate Sodium (Depakene Cap) 750 mg PO BID [facility] Last Admin: 10/02/18 18:56 Dose: 750 mg Vitamin B Complex/Vit C/Folic Acid (Nephro-Benoit) 1 tab PO 0800 [facility] Last Admin: 10/02/18 08:49 Dose: 1 tab - Labs Labs: 10/02/18 07:23 10/02/18 07:23 PT 12.6 SECONDS (9.7-12.2) H 09/24/18 13:35 INR 1.2 09/24/18 13:35 APTT 30 SECONDS (21-34) 09/24/18 13:35
--- NOTE | 2018-10-03 02:13 | PN ---
DATE: 10/02/2018 SUBJECTIVE: The patient is afebrile. More alert. No fever. No chills. PHYSICAL EXAMINATION: VITAL SIGNS: Blood pressure 107/64, pulse 104, respiratory rate 20, and temperature 97.6. LUNGS: Clear. No rales. No rhonchi. CARDIOVASCULAR: S1, S2 plus S3 positive. ABDOMEN: Soft, nontender. Bowel sounds are positive. EXTREMITIES: Left BKA. ASSESSMENT: 1. Acute pyelonephritis, resolved. 2. Type 2 diabetes. 3. Chronic kidney disease, on hemodialysis. 4. Hypertension. 5. Seizure disorder, on valproic acid. PLAN: Continue current medication. Monitor the patient. Emilio Israel MD
--- NOTE | 2018-10-03 03:44 | PN ---
DATE: 10/02/2018 FOLLOWUP RENAL CONSULTATION LOCATION: The patient is located in room 557, bed B. REQUESTED BY: Emilio Israel MD. REASON FOR RENAL CONSULTATION: End-stage renal disease, continuation of hemodialysis. HISTORY OF PRESENT ILLNESS: Mr. Richards is a 73-year-old elderly male with a past medical history significant for longstanding hypertension, diabetes, end-stage renal disease, status post pacemaker placement, diverticulosis, history of diverticulitis, history of lower GI bleed in the past, and also peripheral vascular disease, status post left lower extremity bypass, and status post left BKA who was admitted with lower abdominal pain and dysuria. The patient was found to have a UTI and started on IV antibiotics, Maxipime 1 g every 12 hours. Subsequently, the patient mental status change, and encephalopathy. The patient is off antibiotics and now transferred back from ICU to the medical floor. The patient's is more alert, awake, and oriented x3. Nonfocal neuro examination. No complaints at this time. PHYSICAL EXAMINATION: VITAL SIGNS: This morning as follows: Blood pressure 130/63, pulse 81, respirations 20, and temperature 98.8. Height is 6 feet 1 inch, weight is 195 pounds. GENERAL: Mr. Rihcards is a 73-year-old elderly male, moderately built, moderately nourished, not in acute distress. HEENT: Pupils normal and reactive to light and accommodation. Conjunctiva pink. Sclerae anicteric. Tongue is moist. Trachea is midline. LUNGS: Symmetric on both sides. Bilateral breath sounds present. Clear to auscultation. CARDIOVASCULAR SYSTEM: Eastman at the fifth intercostal space, midclavicular line. S1, S2 audible. No murmur or gallop. ABDOMEN: Normal in appearance, soft, tympanitic. No guarding. No rigidity. No hepatosplenomegaly. CENTRAL NERVOUS SYSTEM: The patient is alert, awake, oriented x3. Nonfocal neuro examination. Cranial nerves II through XII grossly intact. Sensory and motor system is within normal limits. EXTREMITIES: No cyanosis, no clubbing, no edema to the right leg. The patient has a dressing to the right leg, and status post left BKA. CURRENT MEDICATIONS: Include as follows: Anusol HC per rectal b.i.d.; hydralazine 50 mg p.o. every 8 hours; aspirin 325 mg daily; Crestor 5 mg p.o. at bedtime; Depakene 750 mg p.o. b.i.d.; lactulose 20 g p.o. daily; Lac-Hydrin lotion to the skin; also Nephro-Benoit 1 tablet daily; Pepcid 20 mg p.o. daily; Procrit 10,000 units three times a week, Tuesday, Tuesday, and Tuesday, on hold for hemoglobin more than 11; Proscar 5 mg p.o. daily; Renvela 800 mg p.o. t.i.d. with food; calcitriol 0.25 mcg daily; metoprolol 50 mg p.o. b.i.d.; Tylenol 650 mg p.o. every 6 hours. p.r.n. LABORATORY DATA: His lab data include as follows. As of 10/02/2018, WBC 4.9, hemoglobin 10.8, hematocrit 31.4, platelets 149. Sodium 136, potassium 4.7, chloride 97, CO2 of 22, BUN 55, creatinine 12, glucose 175, calcium is 8, phosphorus 5.6, magnesium 2.2, total bili 0.6, AST 32, ALT 22, alkaline phosphatase 100, total protein 7.9, albumin 3.8. IMPRESSION AND PLAN: In summary, Mr. Richards is a [id number] male with history of longstanding hypertension, diabetes, end-stage renal disease, peripheral vascular disease, status post left below knee amputation, diverticulosis, benign prostatic hypertrophy who was admitted with lower abdominal pain and dysuria, found to have a urinary tract infection, initially started on Maxipime 1 g b.i.d. Subsequently discontinued with altered mental status, now back to his baseline and oriented x3. 1. End-stage renal disease. Continue hemodialysis three times a week; Tuesday, Tuesday, and Tuesday. If patient goes home, we will give up short treatment tomorrow or patient can be dialyzed in Outpatient Dialysis if he goes home. 2. Hypertension. Blood pressure is stable. Continue his current medications, hydralazine and Toprol. 3. Diabetes. Sugars are under control. The patient is being scheduled for hemodialysis this afternoon. Ultrafiltration goal is 2 to 2.5 liters. Continue Procrit. We will follow with you. Thank you for allowing me to participate in your patient's care. Case discussed with the foster care case manager in rounds. Blanca Thakkar MD
[2018-10-03] MEDS: (Novolin R) Insulin Human Regular 100 units/ml vial SC SCH ×3 (07:46→19:27)
[2018-10-03 08:27] LABS: ALBUMIN 4.1 g/dL (3.5-5.0); CALCIUM 8.4 mg/dl (8.6-10.4)
[2018-10-03] MEDS: Sevelamer Carb 0.8 gm/Packet PO SCH ×3 (08:53→19:28)
[2018-10-03] MEDS: Multivitamin Vitamin B Complex (Nephro-Vite) Tab PO SCH (08:53)
[2018-10-03] MEDS: Metoprolol Succinate 50 mg XL Tab PO SCH ×2 (10:39→19:28)
[2018-10-03] MEDS: Ammonium Lactate 12% Lotion (225 g) EXT SCH (10:41)
[2018-10-03] MEDS: Hydrocortisone 2.5% Rectal Cream(30 gm) PR SCH ×2 (10:41→19:27)
[2018-10-03] MEDS: Mupirocin 2% Ointment (NASAL) NAS SCH ×2 (10:45→19:27)
[2018-10-03 11:27] LABS: BASO % 0.8 % (0.0-2.0); EOS # 0.2 K/uL (0.0-0.7); HEMOGLOBIN 11.2 g/dL (12.0-18.0); LYMPH % 19.9 % (20.0-40.0); MEAN CELL VOLUME 97.4 fL (80.0-94.0); MEAN CORPUSCULAR HEMOGLOBIN 31.6 pg (27.0-31.0); MEAN CORPUSCULAR HGB CONC 32.5 g/dL (33.0-37.0); MEAN PLATELET VOLUME 9.8 fL (7.2-11.7); MONO # 0.8 K/uL (0.0-0.8); MONO % 14.7 % (0.0-10.0); NEUT # 3.2 K/uL (1.8-7.0); NEUT % 61.6 % (50.0-75.0); NRBC % 0.1 % (0.0-2.0); RBC 3.54 Mil/uL (4.40-5.90); RED CELL DISTRIBUTION WIDTH 15.7 % (11.5-14.5); WHITE BLOOD COUNT 5.2 K/uL (4.8-10.8)
--- NOTE | 2018-10-03 12:30 | CP.PCM.PN ---
Subjective - Date & Time of Evaluation Date of Evaluation: 10/03/18 Time of Evaluation: 12:29 - Subjective Subjective: pt is seen and examined, follow up consult is dictated# [id number] for hd today to kep his out pt schedule, TTS Objective - Vital Signs/Intake and Output Vital Signs (last 24 hours): Temp Pulse Resp BP Pulse Ox 98.4 F 91 H 20 131/63 94 L 10/03/18 07:25 10/03/18 10:30 10/03/18 07:25 10/03/18 10:30 10/03/18 07:25 Intake and Output: 10/03/18 10/03/18 06:59 18:59 Intake Total 100 Balance 100 - Medications Medications: Current Medications Acetaminophen (Tylenol 325mg Tab) 650 mg PO Q6 PRN PRN Reason: Fever >100.4 F Last Admin: 09/23/18 11:39 Dose: 650 mg Aspirin (Aspirin) 325 mg PO DAILY [facility] Last Admin: 10/03/18 10:33 Dose: 325 mg Calcitriol (Rocaltrol) 0.25 mcg PO DAILY [facility] Last Admin: 10/03/18 10:33 Dose: 0.25 mcg Dextrose (Dextrose 50% Inj) 0 ml IV STAT PRN; Protocol PRN Reason: Hypoglycemia Protocol Dextrose (Glutose 15) 0 gm PO ONCE PRN; Protocol PRN Reason: Hypoglycemia Protocol Epoetin Omi (Procrit) 10,000 unit IV MWF [facility] Last Admin: 09/27/18 15:50 Dose: 10,000 unit Famotidine (Pepcid) 20 mg PO DAILY [facility] Last Admin: 10/03/18 10:34 Dose: 20 mg Finasteride (Proscar) 5 mg PO DAILY [facility] Last Admin: 10/03/18 10:33 Dose: 5 mg Glucagon (Glucagen Diagnostic Kit) 0 mg IM STAT PRN; Protocol PRN Reason: Hypoglycemia Protocol Hydralazine HCl (Apresoline) 50 mg PO Q8 [facility] Last Admin: 10/03/18 05:19 Dose: 50 mg Hydrocortisone (Anusol-Hc) 0 gm [place] BID [facility] Last Admin: 10/03/18 10:41 Dose: Not Given Insulin Human Regular (Novolin R) 0 unit SC ACHS [facility]; Protocol Last Admin: 10/03/18 07:46 Dose: Not Given Lactic Acid (Lac-Hydrin 12% Lotion (225 G)) 0 gm EXT DAILY [facility] Last Admin: 10/03/18 10:41 Dose: 1 applic Lactulose (Enulose) 20 gm PO DAILY [facility] Last Admin: 10/03/18 10:33 Dose: 20 gm Metoprolol Succinate (Toprol Xl) 50 mg PO BID [facility] Last Admin: 10/03/18 10:39 Dose: Not Given Mupirocin (Bactroban 2% Nasal) 0.25 gm BATSHE[place] BID [facility] Last Admin: 10/03/18 10:45 Dose: 0.25 gm Rosuvastatin Calcium (Crestor) 5 mg PO HS [facility] Last Admin: 10/02/18 21:43 Dose: 5 mg Sevelamer Carbonate (Renvela) 0.8 gm PO TIDCC [facility] Last Admin: 10/03/18 08:53 Dose: 0.8 gm Valproate Sodium (Depakene Cap) 750 mg PO BID [facility] Last Admin: 10/03/18 10:33 Dose: 750 mg Vitamin B Complex/Vit C/Folic Acid (Nephro-Benoit) 1 tab PO 0800 [facility] Last Admin: 10/03/18 08:53 Dose: 1 tab - Labs Labs: 10/03/18 11:17 10/03/18 07:39 PT 12.6 SECONDS (9.7-12.2) H 09/24/18 13:35 INR 1.2 09/24/18 13:35 APTT 30 SECONDS (21-34) 09/24/18 13:35
--- NOTE | 2018-10-03 15:34 | PN ---
DATE: 10/03/2018 SUBJECTIVE: The patient is oriented to place. He denies any chest pain or shortness of breath. No reported nonsustained ventricular tachycardia. PHYSICAL EXAMINATION: VITAL SIGNS: Blood pressure 131/63, heart rate 91, temperature 98.4, respirations 20. HEENT: Normocephalic. CHEST: Clear. HEART: S1, S2 regular. EXTREMITIES: Left below-knee amputation. LABORATORY DATA: Hemoglobin and hematocrit 11.2 and 34.5. White count and platelet count are within normal limit. Today's SMA-7 sodium 138, potassium 4.2, chloride 95, CO2 of 29, glucose 134, BUN 34, creatinine 8.1. ASSESSMENT: 1. Coronary artery disease with known total occlusion of right coronary artery. 2. Nonsustained ventricular tachycardia. 3. Focal seizures. 4. End stage renal disease, on hemodialysis. 5. Peripheral vascular disease, status post left below-knee amputation. 6. Klebsiella urinary tract infection. Recommendations continue hydralazine 50 mg every 8 hours, aspirin 325 mg once a day, Crestor at 5 mg once a day, Depakene 750 mg twice a day, Pepcid 20 mg once a day, Toprol XL 50 mg twice a day. Roberto Mayer MD
--- NOTE | 2018-10-03 16:44 | CP.PCM.PN ---
Subjective - Date & Time of Evaluation Date of Evaluation: 10/03/18 Time of Evaluation: 16:44 - Subjective Subjective: alert, oriented , no sob or dyspnea, no acute distress. Objective - Vital Signs/Intake and Output Vital Signs (last 24 hours): Temp Pulse Resp BP Pulse Ox 97.9 F 86 18 108/56 L 95 10/03/18 15:00 10/03/18 15:00 10/03/18 15:00 10/03/18 16:00 10/03/18 15:00 Intake and Output: 10/03/18 10/03/18 06:59 18:59 Intake Total 100 Balance 100 - Medications Medications: Current Medications Acetaminophen (Tylenol 325mg Tab) 650 mg PO Q6 PRN PRN Reason: Fever >100.4 F Last Admin: 09/23/18 11:39 Dose: 650 mg Aspirin (Aspirin) 325 mg PO DAILY [facility] Last Admin: 10/03/18 10:33 Dose: 325 mg Calcitriol (Rocaltrol) 0.25 mcg PO DAILY [facility] Last Admin: 10/03/18 10:33 Dose: 0.25 mcg Dextrose (Dextrose 50% Inj) 0 ml IV STAT PRN; Protocol PRN Reason: Hypoglycemia Protocol Dextrose (Glutose 15) 0 gm PO ONCE PRN; Protocol PRN Reason: Hypoglycemia Protocol Epoetin Omi (Procrit) 10,000 unit IV MWF [facility] Last Admin: 09/27/18 15:50 Dose: 10,000 unit Famotidine (Pepcid) 20 mg PO DAILY [facility] Last Admin: 10/03/18 10:34 Dose: 20 mg Finasteride (Proscar) 5 mg PO DAILY [facility] Last Admin: 10/03/18 10:33 Dose: 5 mg Glucagon (Glucagen Diagnostic Kit) 0 mg IM STAT PRN; Protocol PRN Reason: Hypoglycemia Protocol Hydralazine HCl (Apresoline) 50 mg PO Q8 [facility] Last Admin: 10/03/18 14:45 Dose: Not Given Hydrocortisone (Anusol-Hc) 0 gm [place] BID [facility] Last Admin: 10/03/18 10:41 Dose: Not Given Insulin Human Regular (Novolin R) 0 unit SC ACHS [facility]; Protocol Last Admin: 10/03/18 12:51 Dose: 4 units Lactic Acid (Lac-Hydrin 12% Lotion (225 G)) 0 gm EXT DAILY [facility] Last Admin: 10/03/18 10:41 Dose: 1 applic Lactulose (Enulose) 20 gm PO DAILY [facility] Last Admin: 10/03/18 10:33 Dose: 20 gm Metoprolol Succinate (Toprol Xl) 50 mg PO BID [facility] Last Admin: 10/03/18 10:39 Dose: Not Given Mupirocin (Bactroban 2% Nasal) 0.25 gm BATSHEVA BID [facility] Last Admin: 10/03/18 10:45 Dose: 0.25 gm Rosuvastatin Calcium (Crestor) 5 mg PO HS [facility] Last Admin: 10/02/18 21:43 Dose: 5 mg Sevelamer Carbonate (Renvela) 0.8 gm PO TIDCC [facility] Last Admin: 10/03/18 12:52 Dose: 0.8 gm Valproate Sodium (Depakene Cap) 750 mg PO BID [facility] Last Admin: 10/03/18 10:33 Dose: 750 mg Vitamin B Complex/Vit C/Folic Acid (Nephro-Benoit) 1 tab PO 0800 [facility] Last Admin: 10/03/18 08:53 Dose: 1 tab - Labs Labs: 10/03/18 11:17 10/03/18 07:39 PT 12.6 SECONDS (9.7-12.2) H 09/24/18 13:35 INR 1.2 09/24/18 13:35 APTT 30 SECONDS (21-34) 09/24/18 13:35 Assessment and Plan - Assessment and Plan (Free Text) Assessment: 73 year old male admitted with fever, urosepsis, antibiotics completed, seen and examined. Alert and orientedx3, denies any acute sympoms. Denies sob or chest pains, no acute distress. Discussed with DR Corral and DR Israel, plan to discharge home after short dialysis today. To continue with HD on TTS as before. Advised to follow up with PMD in 1 week.
[2018-10-03 17:52] VITALS: BP 120/62; PULSE 82; RESP 16; TEMP 97.3; O2SAT 97
--- NOTE | 2018-10-03 19:13 | CARD ---
APPROVED REPORT Date of service: 09/30/2018 EKG Measurement Heart [id number] <Conclusion> Sinus tachycardia Right bundle branch block Left posterior fascicular block Bifascicular block Septal infarct, age undetermined Inferior infarct, age undetermined Abnormal ECG
--- NOTE | 2018-10-04 00:23 | CP.PCM.DIS ---
Provider - Provider Date of Admission: 09/18/18 17:46 Attending physician: Emilio Israel MD Consults: 09/18/18 19:11 Podiatry Consult Routine Comment: Consulting Provider: Stephen Stoll Consulting Physician: Stephen Stoll Reason for Consult: foot ulcer 09/18/18 19:12 Nephrology Consult Routine Comment: Consulting Provider: Blanca Thakkar Consulting Physician: Blanca Thakkar Reason for Consult: ckd 09/19/18 08:00 Nursing Referral for Wound Care Routine Comment: Physician Instructions: Reason For Exam: POST OP WOUND RIGHT NICHOLS 09/19/18 12:19 Infectious Disease Consult Routine Comment: Consulting Provider: Nydia Melendez Consulting Physician: Nydia Melendez Reason for Consult: fever 09/19/18 12:27 Urology Consult Routine Comment: Consulting Provider: Tata Hung Consulting Physician: Tata Hung Reason for Consult: uti 09/24/18 13:10 Neurology Consult Routine Comment: Consulting Provider: Eb Conrad Consulting Physician: Eb Conrad Reason for Consult: change in mental status 09/30/18 07:24 Cardiology Consult Routine Comment: Consulting Provider: Roberto Mayer Consulting Physician: Roberto Mayer Reason for Consult: v tach Hospital Course - Lab Results Lab Results: Micro Results 09/24/18 13:16 Blood-Venous Blood Culture - Final NO GROWTH AFTER 5 DAYS 09/24/18 13:16 Blood-Venous Gram Stain - Final TEST NOT PERFORMED 09/24/18 13:16 Blood-Venous Blood Culture - Final NO GROWTH AFTER 5 DAYS 09/24/18 13:16 Blood-Venous Gram Stain - Final TEST NOT PERFORMED 09/27/18 08:11 Nose MRSA Culture - Final MRSA DETECTED 09/24/18 07:56 Nose MRSA Culture (Admit) - Final MRSA NOT DETECTED 09/18/18 18:00 Blood Blood Culture - Final NO GROWTH AFTER 5 DAYS 09/18/18 18:00 Blood Gram Stain - Final TEST NOT PERFORMED 09/18/18 18:00 Blood Blood Culture - Final NO GROWTH AFTER 5 DAYS 09/18/18 18:00 Blood Gram Stain - Final TEST NOT PERFORMED 09/19/18 14:21 Urine Urine Culture - Final Klebsiella Pneumoniae Ssp Pneu Most Recent Lab Values WBC 5.2 K/uL (4.8-10.8) 10/03/18 11:17 RBC 3.54 Mil/uL (4.40-5.90) L 10/03/18 11:17 Hgb 11.2 g/dL (12.0-18.0) L 10/03/18 11:17 Hct 34.5 % (35.0-51.0) L 10/03/18 11:17 MCV 97.4 fL (80.0-94.0) H 10/03/18 11:17 MCH 31.6 pg (27.0-31.0) H 10/03/18 11:17 MCHC 32.5 g/dL (33.0-37.0) L 10/03/18 11:17 RDW 15.7 % (11.5-14.5) H 10/03/18 11:17 Plt Count 178 K/uL (130-400) 10/03/18 11:17 MPV 9.8 fL (7.2-11.7) 10/03/18 11:17 Neut % (Auto) 61.6 % (50.0-75.0) 10/03/18 11:17 Lymph % (Auto) 19.9 % (20.0-40.0) L 10/03/18 11:17 [place] % (Auto) 14.7 % (0.0-10.0) H 10/03/18 11:17 Eos % (Auto) 3.0 % (0.0-4.0) 10/03/18 11:17 Baso % (Auto) 0.8 % (0.0-2.0) 10/03/18 11:17 Neut # (Auto) 3.2 K/uL (1.8-7.0) 10/03/18 11:17 Lymph # (Auto) 1.0 K/uL (1.0-4.3) 10/03/18 11:17 [place] # (Auto) 0.8 K/uL (0.0-0.8) 10/03/18 11:17 Eos # (Auto) 0.2 K/uL (0.0-0.7) 10/03/18 11:17 Baso # (Auto) 0.0 K/uL (0.0-0.2) 10/03/18 11:17 Neutrophils % (Manual) 88 % (50-75) H 09/19/18 14:11 Band Neutrophils % 2 % (0-2) 09/18/18 15:03 Lymphocytes % (Manual) 3 % (20-40) L 09/19/18 14:11 Monocytes % (Manual) 7 % (0-10) 09/19/18 14:11 Eosinophils % (Manual) 2 % (0-4) 09/19/18 14:11 Platelet Estimate Decreased (NORMAL) L 09/19/18 14:11 Polychromasia Slight 09/19/18 14:11 Hypochromasia (manual) Slight 09/19/18 14:11 Anisocytosis (manual) Slight 09/19/18 14:11 Ovalocytes Slight 09/19/18 14:11 PT 12.6 SECONDS (9.7-12.2) H 09/24/18 13:35 INR 1.2 09/24/18 13:35 APTT 30 SECONDS (21-34) 09/24/18 13:35 Puncture Site Right radial 09/24/18 13:32 pCO2 43 mm/Hg (35-45) 09/24/18 13:32 pO2 71 mm/Hg (80-100) L 09/24/18 13:32 HCO3 24.8 mmol/L (21-28) 09/24/18 13:32 ABG pH 7.38 (7.35-7.45) 09/24/18 13:32 ABG Total CO2 26.7 mmol/L (22-28) 09/24/18 13:32 ABG O2 Saturation 93.2 % (95-98) L 09/24/18 13:32 ABG Base Excess 0 mmol/L (-2.0-3.0) 09/24/18 13:32 Josiah Test Pos 09/24/18 13:32 ABG Potassium 4.2 mmol/L (3.6-5.2) 09/24/18 13:32 A-a O2 Difference 25.0 mm/Hg 09/24/18 13:32 Respiratory Index 0.4 09/24/18 13:32 Sodium 136.0 mmol/l (132-148) 09/24/18 13:32 Chloride 101.0 mmol/L (98-107) 09/24/18 13:32 Glucose 171 mg/dl (75-110) H 09/24/18 13:32 Lactate 0.8 mmol/L (0.7-2.1) 09/24/18 13:32 FiO2 21.0 % 09/24/18 13:32 Sodium 138 mmol/L (132-148) 10/03/18 07:39 Potassium 4.2 mmol/L (3.6-5.2) 10/03/18 07:39 Chloride 95 mmol/L (98-107) L 10/03/18 07:39 Carbon Dioxide 29 mmol/L (22-30) 10/03/18 07:39 Anion Gap 19 (10-20) 10/03/18 07:39 BUN 34 mg/dL (9-20) H 10/03/18 07:39 Creatinine 8.1 mg/dL (0.8-1.5) H* D 10/03/18 07:39 Est GFR ( Amer) 8 10/03/18 07:39 Est GFR (Non-Af Amer) 7 10/03/18 07:39 POC Glucose (mg/dL) 263 mg/dL (65-110) H 10/03/18 11:10 Random Glucose 134 mg/dL (75-110) H 10/03/18 07:39 Calcium 8.4 mg/dl (8.6-10.4) L 10/03/18 07:39 Phosphorus 4.8 mg/dL (2.5-4.5) H 10/03/18 07:39 Magnesium 2.0 mg/dL (1.6-2.3) 10/03/18 07:39 Total Bilirubin 0.7 mg/dL (0.2-1.3) 10/03/18 07:39 AST 31 U/L (17-59) 10/03/18 07:39 ALT 21 U/L (21-72) 10/03/18 07:39 Alkaline Phosphatase 91 U/L (38-126) 10/03/18 07:39 Ammonia < 9 umol/L (9-33) L 09/26/18 14:01 Total Creatine Kinase 47 U/L (55-170) L 09/30/18 13:57 CK-MB (Mass) 2.71 ng/mL (0.0-3.38) 09/30/18 13:57 Troponin I 0.0760 ng/mL (0.00-0.120) 09/30/18 13:57 Total Protein 8.0 g/dL (6.3-8.3) 10/03/18 07:39 Albumin 4.1 g/dL (3.5-5.0) 10/03/18 07:39 Globulin 4.0 gm/dL (2.2-3.9) H 10/03/18 07:39 Albumin/Globulin Ratio 1.0 (1.0-2.1) 10/03/18 07:39 Arterial Blood Potassium 4.2 mmol/L (3.6-5.2) 09/24/18 13:32 Urine Color Brown (YELLOW) 09/20/18 06:41 Urine Clarity Turbid (Clear) 09/20/18 06:41 Urine pH 6.0 (5.0-8.0) 09/20/18 06:41 Ur Specific [place] 1.033 (1.003-1.030) H 09/20/18 06:41 Urine Protein 2+ mg/dL (NEGATIVE) H 09/20/18 06:41 Urine Glucose (UA) Normal mg/dL (Normal) 09/20/18 06:41 Urine Ketones Trace mg/dL (NEGATIVE) 09/20/18 06:41 Urine Blood 2+ (NEGATIVE) H 09/20/18 06:41 Urine Nitrate Negative (NEGATIVE) 09/20/18 06:41 Urine Bilirubin Negative (NEGATIVE) 09/20/18 06:41 Urine Urobilinogen 2.0 mg/dL (0.2-1.0) 09/20/18 06:41 Ur Leukocyte Esterase 2+ [place]/uL (Negative) H 09/20/18 06:41 Urine WBC (Auto) 1988 /hpf (0-5) H 09/20/18 06:41 Urine RBC (Auto) 702 /hpf (0-3) H 09/20/18 06:41 Urine WBC Clumps (Auto) Occ /hpf (NONE) H 09/20/18 06:41 Urine Bacteria Mod (<OCC) H 09/20/18 06:41 Valproic Acid 29.1 ug/mL (50.0-100.0) L 09/29/18 12:57 Discharge Exam - Head Exam Head Exam: ATRAUMATIC, NORMAL INSPECTION Discharge Plan - Discharge Medications Prescriptions: Valproic Acid Cap [Depakene Cap] 750 mg PO BID #180 sgl - Follow Up Plan Condition: STABLE Disposition: HOME/ ROUTINE Instructions: Peripheral Vascular (Arterial) Disease (DC), Seizures, Adult (DC), Valproic Acid and Derivatives, Dialysis and Diet Additional Instructions: Continue dialysis MWF FOLLOW UP WITH PMD IN 1 WEEK home care/ home PT / HAS LEFT LEG PROSTHESIS Referrals: Roberto Mayer MD [Staff Provider] - Blanca Thakkar MD [Staff Provider] - Nydia Melendez MD [Staff Provider] - Eb Conrad MD [Staff Provider] - Emilio Israel MD [Staff Provider] - Tata Hung MD [Staff Provider] - Stephen Stoll DPM [Staff Provider] -
--- NOTE | 2018-10-04 08:09 | PN ---
DATE: 10/03/2018 FOLLOWUP RENAL CONSULTATION LOCATION: The patient is located in room 557, bed B. REQUESTED BY: Emilio Israel MD REASON FOR FOLLOWUP: End-stage renal disease, continuation of hemodialysis. SUBJECTIVE: The patient is a 73-year-old elderly male with a past medical history significant for longstanding hypertension, diabetes, end-stage renal disease, peripheral vascular disease, status post left BKA, and BPH who was admitted with chief complaints of lower abdominal discomfort and pain, dysuria and low-grade fever and found to have a UTI. The patient was initially started on IV Maxipime 1 g IV piggyback b.i.d. Subsequently, the patient developed acute mental status change and subsequently transferred to ICU. The patient was given dialysis, and his mental status slowly improved. Questionable seizure activity, on Depakene. The patient is now alert, awake, oriented x3. No complaints. Back to his normal mental status. No chest pain. No palpitation. No fever. No cough. No abdominal pain. No nausea, vomiting, or diarrhea. The patient is scheduled to discharge today. The patient was dialyzed yesterday, and his outpatient schedule is Tuesday, , Tuesday. In order to keep his outpatient schedule, the patient is a scheduled to receive hemodialysis today. PHYSICAL EXAMINATION: VITAL SIGNS: As follows: Blood pressure 120/60, pulse 82, respirations 16, temperature 97.3. Height 6 feet 1 inch. Weight is 195 pounds. HEENT: The patient is a 73-year-old elderly male, moderately built, moderately nourished, not in distress. HEENT: Pupils are normal and reactive to light and accommodation. Conjunctivae pink. Sclerae anicteric. Tongue is moist and trachea is midline. LUNGS: Symmetric on both sides. Bilateral breath sounds present. Clear to auscultation. CARDIOVASCULAR SYSTEM: [place] at the fifth intercostal space, midclavicular line. S1 and S2 audible. No murmur or gallop. ABDOMEN: Normal in appearance. Tympanitic. No guarding. No rigidity. No hepatosplenomegaly. CENTRAL NERVOUS SYSTEM: The patient is alert, awake and oriented x3. Nonfocal neuro examination. Cranial nerves II through XII grossly intact. Sensory and motor system is within normal limit. EXTREMITIES: No cyanosis, no clubbing. Edema on the right leg. Status post left BKA. MEDICATIONS: His current medications include as follows: Anusol-HC per rectal b.i.d., hydralazine 50 mg p.o. every 8 hours, aspirin 325 mg p.o. daily, Bactroban ointment intranasal b.i.d., Crestor 5 mg p.o. at bedtime, Depakene 750 mg p.o. b.i.d., lactulose 20 g p.o. daily, Lac-Hydrin lotion to skin daily, Nephro-Benoit one tablet p.o. daily, Novolin R per sliding scale, Pepcid 20 mg p.o. daily, Procrit 10,000 units three times a week and hold for hemoglobin more than 11, Proscar 5 mg p.o. daily, Renvela 800 mg p.o. t.i.d., calcitriol 0.25 mcg p.o. daily, and Toprol-XL 50 mg p.o. b.i.d.. LABORATORY DATA: As of 10/03/2018: WBC 5.2, hemoglobin 11.3, hematocrit is 34.5, platelets 178. Sodium 138, potassium 4.2, chloride 95, CO2 of 29, BUN 34, creatinine 8.1, glucose 140, calcium 8.4, phosphorus 4.8, magnesium is 2. Total bili 0.7, AST 31, ALT 21, alkaline phosphatase 91, total protein is 8, and albumin is 4.1. ASSESSMENT AND PLAN: In summary, the patient is a 73-year-old elderly male with a history of longstanding hypertension, diabetes, end-stage renal disease, diverticulosis, peripheral vascular disease, benign prostatic hypertrophy who was admitted with lower abdominal pain, fever and dysuria, found to have a urinary tract infection. His hospital course complicated by acute mental status change. 1. End-stage renal disease. Continue hemodialysis three times a week. The patient was receiving hemodialysis on Tuesday, Tuesday and Tuesday, and his outpatient schedule is Tuesday, , Tuesday. In order to keep his outpatient schedule, the patient will be scheduled for dialysis this afternoon. The patient can be discharged after hemodialysis. He can restart hemodialysis on in [facility]. 2. Hypertension. Blood pressure is stable. Continue his current medications, hydralazine and Toprol-XL. 3. Benign prostatic hypertrophy. Continue Proscar. We will follow with you. Thank you for allowing me to participate in your patient's care. Case discussed with nurse practitioner, , in rounds. Blanca Thakkar MD
--- NOTE | 2018-10-04 20:37 | DS ---
ADMISSION DIAGNOSIS: Pyelonephritis. DISCHARGE DIAGNOSES: 1. Acute pyelonephritis. 2. End-stage renal disease, on hemodialysis. 3. Congestive heart failure. 4. Seizure. 5. Chronic kidney disease. HISTORY OF PRESENT ILLNESS: This is a 73-year-old -[place] male with a history of peripheral arterial disease with left BKA, hypertension, congestive heart failure, coronary artery disease, type 2 diabetes, CKD, on hemodialysis, who came in because of fever, chill, rigors, found to have acute pyelonephritis, which improved with IV antibiotics, and during the hospitalization, he developed altered mental status, found to have seizure due to meropenem and the patient was started on Depakote and he was taken off meropenem. The patient did well and subsequently he is afebrile. He is for discharge. PHYSICAL EXAMINATION: VITAL SIGNS: Blood pressure 120/62, pulse 82, respiratory rate 12, and temperature 97.3. LUNGS: Clear. CARDIOVASCULAR: S1 and S2, regular. ABDOMEN: Soft and nontender. Bowel sounds are positive. LABORATORY DATA: WBC 5.2, hemoglobin 11.2, hematocrit 34.5, platelets 178. Sodium 138, potassium 4.2, chloride 95, bicarb 29, BUN 34, creatinine 8.1. The patient is awake, alert, and afebrile before discharge. Emilio Israel MD
== END 2018-10-03 20:34 | disposition home or self-care (01) | DRG 689 ==
LOC: C.ER 13:34 → C.9E 17:46 → C.3T 19:12 → C.5S 09-24 16:40 → C.9I 09-24 20:41 → C.5S 09-27 21:51
PROVIDERS: ADMIT Internal Medicine; ATTEND Internal Medicine
PROC: 5A1D70Z Performance of Urinary Filtration, Intermittent, Less than 6 Hours Per Day (ICD-10-PCS; principal; 2018-09-20)
PROC: 5A1D70Z Performance of Urinary Filtration, Intermittent, Less than 6 Hours Per Day (ICD-10-PCS; 2018-09-22)
PROC: 5A1D70Z Performance of Urinary Filtration, Intermittent, Less than 6 Hours Per Day (ICD-10-PCS; 2018-09-25)
PROC: 5A1D70Z Performance of Urinary Filtration, Intermittent, Less than 6 Hours Per Day (ICD-10-PCS; 2018-09-27)
PROC: 5A1D70Z Performance of Urinary Filtration, Intermittent, Less than 6 Hours Per Day (ICD-10-PCS; 2018-09-29)
PROC: 5A1D70Z Performance of Urinary Filtration, Intermittent, Less than 6 Hours Per Day (ICD-10-PCS; 2018-10-02)
PROC: 5A1D70Z Performance of Urinary Filtration, Intermittent, Less than 6 Hours Per Day (ICD-10-PCS; 2018-10-03)
DX: N10 Acute pyelonephritis (principal); N18.6 End stage renal disease; I13.2 Hypertensive heart and chronic kidney disease with heart failure and with stage 5 chronic kidney disease, or end stage renal disease; G92 Toxic encephalopathy; G40.89 Other seizures; I47.2 Ventricular tachycardia; L97.919 Non-pressure chronic ulcer of unspecified part of right lower leg with unspecified severity; E11.22 Type 2 diabetes mellitus with diabetic chronic kidney disease; B96.1 Klebsiella pneumoniae [K. pneumoniae] as the cause of diseases classified elsewhere; D63.1 Anemia in chronic kidney disease; E11.51 Type 2 diabetes mellitus with diabetic peripheral angiopathy without gangrene; E11.65 Type 2 diabetes mellitus with hyperglycemia; E11.622 Type 2 diabetes mellitus with other skin ulcer; I50.9 Heart failure, unspecified; I25.10 Atherosclerotic heart disease of native coronary artery without angina pectoris; I25.82 Chronic total occlusion of coronary artery; N40.0 Benign prostatic hyperplasia without lower urinary tract symptoms; E78.5 Hyperlipidemia, unspecified; E78.00 Pure hypercholesterolemia, unspecified; K59.00 Constipation, unspecified; F17.200 Nicotine dependence, unspecified, uncomplicated; Z95.0 Presence of cardiac pacemaker; Z99.2 Dependence on renal dialysis; Z89.512 Acquired absence of left leg below knee; Z79.01 Long term (current) use of anticoagulants; Z79.82 Long term (current) use of aspirin; Z79.899 Other long term (current) drug therapy; Z87.440 Personal history of urinary (tract) infections; Z99.3 Dependence on wheelchair